=== PATIENT | male | born 1955 | race Caucasian/White ===

== ENCOUNTER 2019-04-02 11:59 | Inpatient (IN) | payer MEDICARE, SELFPAY | END 2019-04-04 00:47 | disposition left against medical advice (07) | DRG 280 | PROVIDERS: Admitting Provider Student in an Organized Health Care Education/Training Program; Visit Provider Student in an Organized Health Care Education/Training Program | DX: I21.4 Non-ST elevation (NSTEMI) myocardial infarction (principal); I50.43 Acute on chronic combined systolic (congestive) and diastolic (congestive) heart failure; N17.9 Acute kidney failure, unspecified; I11.0 Hypertensive heart disease with heart failure; E78.5 Hyperlipidemia, unspecified; G35 Multiple sclerosis; Z53.29 Procedure and treatment not carried out because of patient's decision for other reasons; F17.210 Nicotine dependence, cigarettes, uncomplicated ==

== ENCOUNTER 2019-09-03 12:09 | Outpatient (CLI) | payer MEDICARE, SELFPAY ==
--- NOTE | 2019-09-03 12:35 | XR_ITS ---
WS: [id number] CHEST 2 VIEWS HISTORY: cough COMPARISON: 04/02/2019 Lungs: Hyperexpanded lungs with mild diffuse interstitial edema. No pneumonia. Cardiac size: Moderately enlarged cardiac silhouette. Mediastinum/Aorta: Mild atherosclerosis aorta. Bones: Normal. XR/XR chest 2V* [id number] IMPRESSION: 1. Chronic emphysema with mild CHF. 2. Moderate cardiomegaly.
--- NOTE | 2019-09-03 12:45 | USCV_ITS ---
RadhaArmando hendricks Age: 64 Gender: M : 1955 Exam Date: 09/03/2019 12:21 Ordering Phys: Sully Chaney Technologist: Sarah Griffin Exam Location: [facility] Indication: ISCHEMIC CARDIOMYOPATHY BP: / HR: 54 Rhythm: Sinus Technical Quality: Adequate MEASUREMENTS (Male / Female) Normal Values 2D ECHO LV Diastolic Diameter PLAX 5.8 cm 4.2 - 5.9 / 3.9 - 5.3 cm LV Systolic Diameter PLAX 5.1 cm LV Chamber Size 5.7 cm IVS Diastolic Thickness 1.7 cm 0.6 - 1.0 / 0.6 - 0.9 cm IVS Systolic Thickness 1.7 cm LVPW Diastolic Thickness 2.6 cm 0.6 - 1.0 / 0.6 - 0.9 cm LVPW Systolic Thickness 2.1 cm RV Chamber Size 4.2 cm LVOT Diameter 2.1 cm LV Ejection Fraction 2D Teich 24.3 % LV Ejection Fraction MOD 2C 17.5 % LV Ejection Fraction 2C AL 22.5 % LA Diameter 6.0 cm LA Width 4.7 cm LA Height 5.9 cm RA Width 3.5 cm RA Height 5.1 cm Aorta at Sinotubular Diameter 3.0 cm M-MODE LV Diastolic Diameter MM 6.8 cm 4.2 - 5.9 / 3.9 - 5.3 cm LV Systolic Diameter MM 4.7 cm LV Ejection Fraction MM Teich 57.3 % IVS Diastolic Thickness MM 1.3 cm 0.6 - 1.0 / 0.6 - 0.9 cm IVS Systolic Thickness MM 1.8 cm LVPW Diastolic Thickness MM 1.4 cm 0.6 - 1.0 / 0.6 - 0.9 cm LVPW Systolic Thickness MM 1.8 cm Aortic Annulus Diameter 3.0 cm LA Ao Ratio MM 2.0 MV E Point Septal Separation 1.7 cm DOPPLER AV Peak Velocity 142.0 cm/s LVOT Peak Velocity 125.0 cm/s AV Area Cont Eq vti 3.8 cm squared AV Area Cont Eq pk 3.0 cm squared MV Area PHT 3.1 cm squared Mitral E to A Ratio 2.8 MV E' Velocity 8.0 cm/s Mitral E to MV E' Ratio 13.9 Mitral E to LV E' Lateral Ratio 18.5 Mitral E to LV E' Septal Ratio 11.1 TR Peak Velocity 135.0 cm/s TR Peak Gradient 7.3 mmHg TV Peak E Velocity 43.0 cm/s Right Atrial Pressure 3.0 mmHg Pulmonary Artery Systolic Pressu 10.3 mmHg PV Peak Velocity 78.0 cm/s QpQs Shunt Ratio 1.3 RV Acceleration Time 0.1 s RV Ejection Time 0.4 s RV AcT/ET 0.4 FINDINGS Left Ventricle The ventricle appears mildly enlarged. There are regional wall motion disturbances. There is moderate to severe hypokinesis of the inferior and posterior santo. There is at least moderate hypokinesis of the lateral wall. Ejection fraction is 35 to 40%. Grade 3 diastolic dysfunction. Right Ventricle Normal right ventricular size and systolic function. Normal right ventricular systolic pressure. Right Atrium The right atrium is normal in size. Left Atrium Moderately increased left atrial size. Mitral Valve Structurally normal mitral valve. Moderate mitral valve regurgitation. Aortic Valve Structurally normal aortic valve without significant sclerosis or stenosis. There is no aortic regurgitation. Tricuspid Valve Structurally normal tricuspid valve. Trace tricuspid valve regurgitation. Pulmonic Valve Pulmonic valve not well visualized. Pericardium Normal pericardium without effusion. Aorta Normal ascending aorta dimension. CONCLUSIONS The ventricle appears mildly enlarged. There are regional wall motion disturbances. There is moderate to severe hypokinesis of the inferior and posterior santo. There is at least moderate hypokinesis of the lateral wall. Ejection fraction is 35 to 40%. Grade 3 diastolic dysfunction. Moderately increased left atrial size. Structurally normal mitral valve. Moderate mitral valve regurgitation. There are no prior echocardiogram studies to compare. Dr. Almas Arana MD (Electronically Signed) Final Date: 03 Sep 2019 13:49 S
== END 2019-09-03 12:10 | disposition home or self-care (01) ==
LOC: RAD 12:11
PROVIDERS: Visit Provider Nurse Practitioner Family
DX: R05 Cough (principal); I25.5 Ischemic cardiomyopathy; I51.7 Cardiomegaly; I34.0 Nonrheumatic mitral (valve) insufficiency; J43.9 Emphysema, unspecified
CPT/HCPCS: 71046; 93306

== ENCOUNTER 2019-09-23 15:40 | Inpatient (IN) | payer MEDICARE, SELFPAY ==
[2019-09-23] VITALS (50 sets, daily range): BP systolic 160–216; BP diastolic 81–139; PULSE 48–85; RESP 18–36; TEMP 36.6–36.8; O2SAT 90–99; BMI 38.4
--- NOTE | 2019-09-23 15:59 | W.ED.SOB ---
HPI - SOB/Dyspnea General: Chief Complaint: Shortness of Breath/Dyspnea Stated Complaint: sent by Dr velasquez for admit Time Seen by Provider: 09/23/19 15:54 History of Present Illness: HPI Narrative: Patient presents to the ER with complaint of increasing shortness of breath secondary to congestive heart failure. Patient has either 3 or 4 stents that were placed at least 2 years ago that patient's marketing traffic coordinator believes are clogged. Patient has intermittent chest pain along with the shortness of breath. MD elicited complaint: shortness of breath, pain with inspiration, chest pain and anxiety Pertinent past history: congestive heart failure Onset (ago): day(s) Context: occurred during exertion Timing: constant and progressively worsening Severity: similar to previous episodes Exacerbating factors: lying flat, exertion and talking Relieving factors: nothing Known history of: congestive heart failure Associated symptoms: Reports lightheadedness, nausea and orthopnea Treatment prior to arrival: none Review of Systems Card: Reports: swelling of feet/ankles, lightheadedness, dyspnea on exertion and orthopnea Resp: Reports: dyspnea GI: Reports: nausea PFSH ED PFSH: Medical History CHF (congestive heart failure) History of non-ST elevation myocardial infarction (NSTEMI) HTN (hypertension) Hyperlipidemia Ischemic cardiomyopathy Lacunar infarction Multiple sclerosis Surgical History Hx of heart artery stent stents x 2, 2018- unknown vessels Family History Sister Heart disease Hypertension Myocardial infarction Mother Cancer Daughter Myocardial infarction Social History Smoking and tobacco status: current every day smoker Alcohol intake: never Physical Exam Const: COMMON NORMALS: well nourished GENERAL APPEARANCE: cooperative, well developed, in distress, anxious, disheveled and ill appearing HENMT: COMMON NORMALS: normocephalic and atraumatic HEAD & SCALP: normal to inspection, normocephalic and atraumatic Eye: GENERAL EYE: appearance normal, both eyes and all related structures Neck/C-Spine: COMMON NORMALS: full ROM, no lymphadenopathy and no meningeal signs GENERAL: Yes normal visual inspection CERVICAL SPINE: Yes cervical ROM normal and Yes normal cervical lordosis Chest: COMMONS NORMALS: normal inspection of the chest and normal palpation of entire chest wall Resp: COMMON NORMALS: No retractions and percussion normal EFFORT & INSPECTION: Yes tachypneic, Yes respiratory distress and Yes uses accessory muscles AUSCULTATION: rales PERCUSSION: percussion normal Cardio: COMMON NORMALS: regular rate, regular rhythm, S1 normal heart sound present and S2 normal heart sound present JUGULAR VENOUS DISTENTION: no JVD PALPATION: normal PMI RATE: regular rate RHYTHM: regular rhythm HEART SOUNDS: S1 normal heart sound present and S2 normal heart sound present GI: COMMON NORMALS: Soft to palpation and No hepatosplenomegaly present INSPECTION: Yes normal to inspection PALPATION: Yes Soft to palpation and Yes No hepatosplenomegaly present PERCUSSION: normal to percussion : COMMON NORMALS: Yes no CVA tenderness BLADDER/KIDNEY EXAM: Yes no CVA tenderness Back/Pelvis: COMMON NORMALS: no CVA tenderness, thoracic and lumbar spine normal to inspection and thoraco-lumbar ROM normal Extremity: COMMON NORMALS: normal to inspection, full ROM and capillary refill normal Neuro: MENINGEAL SIGNS: Yes no meningeal signs Skin: COMMON NORMALS: no rashes or lesions noted, no wounds and turgor normal GENERAL SKIN EXAM: no rashes or lesions noted, elasticity normal and turgor normal LESIONS: no lesions RASHES: no rashes TRAUMA: no lacerations or abrasions HAIR: normal NAILS: normal Course Vital Signs: Vital signs: Vital Signs Pulse Rate 70 09/23/19 16:00 Respiratory Rate 22 H 09/23/19 16:00 Blood Pressure 201/109 09/23/19 16:00 Pulse Oximetry 98 09/23/19 16:00 Discharge Plan Discharge Patient Disposition: Admitted As Inpatient Clinical Impression: Ischemic cardiomyopathy, Multiple sclerosis CHF (congestive heart failure) Qualifiers: Heart failure type: unspecified Heart failure chronicity: acute on chronic Qualified Code(s): I50.9 - Heart failure, unspecified HTN (hypertension) Qualifiers: Hypertension type: unspecified Qualified Code(s): I10 - Essential (primary) hypertension Coronary artery disease Qualifiers: Coronary Disease-Associated Artery/Lesion type: [place] artery [place] vs. transplanted heart: [place] heart Associated angina: with unstable angina Qualified Code(s): I25.110 - Atherosclerotic heart disease of [place] coronary artery with unstable angina pectoris Condition: Fair Referrals: Madeleine Garza FNP [Primary Care Provider] - Coding Level of Care Code ED Motor Bus Driver for Chg Fwd Exam Comprehensive
[2019-09-23] MEDS: metoprolol tartrate 1 mg/1 mL SDV 5 mL 5 MG IV (16:13)
[2019-09-23 16:35] LABS: Basophils # 0.1 10^3/uL (0.0-0.1); Basophils % 0.4 %; Eosinophils # 0.2 10^3/uL (0.0-0.8); Eosinophils % 1.9 %; Hematocrit 37.8 % (42.0-52.0); Hemoglobin 11.5 g/dL (11.7-16.6); Lymphocytes # 1.6 10^3/uL (0.8-4.8); Lymphocytes % 13.9 %; Mean Corpuscular HGB Conc 30.4 g/dL (30.0-36.0); Mean Corpuscular Hemoglobin 28.5 pg (28.0-34.0); Mean Corpuscular Volume 93.8 fL (80-94); Mean Platelet Volume 10.2 fL (7.4-10.4); Monocytes # 1.1 10^3/uL (0.2-0.9); Monocytes % 9.1 %; Neutrophils # 8.8 10^3/uL (1.8-7.7); Neutrophils % 74.4 %; Nucleated Red Blood Cells % 0 %; Platelet Count 288 10^3/cmm (130-400); Red Blood Count 4.03 10^6/uL (4.1-5.3); Red Cell Distribution Width 15.8 % (12.1-15.1); White Blood Count 11.8 10^3/uL (4.0-10.0)
--- NOTE | 2019-09-23 16:45 | PC.NURSE ---
Patient to room from ER. Patient placed on 2 L NC, sitting up in bed. Patient appears SOB, O2 saturations are WNL. Physical assessment performed.
--- NOTE | 2019-09-23 16:49 | ECG_ITS ---
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 Measurements Intervals [place] Rate: 67 P: 52 PA: 197 QRS: 68 QRSD: 177 T: -52 QT: 462 QTc: 489 Interpretive Statements SINUS RHYTHM RIGHT BUNDLE BRANCH BLOCK [120+ ms QRS DURATION, UPRIGHT V1, 40+ ms S IN I/aVL/V4/V5/V6] MODERATE T-WAVE ABNORMALITY, CONSIDER LATERAL ISCHEMIA [-0.1+ mV T WAVE IN I/aVL/V5/V6] Compared to ECG 04/02/2019 20:21:07 T-wave abnormality now present Possible ischemia now present Myocardial infarct finding no longer present Electronically Signed On 09-23-2019 19:59:44 CDT by Marylin Valenzuela M.D. [id number]
[2019-09-23 16:55] LABS: Blood Urea Nitrogen 18 mg/dL (8-23); Calcium 9.2 mg/dL (8.5-10.5); Carbon Dioxide 24 mmol/L (22-29); Chloride 103 mmol/L (98-107); Glomerular Filtration Rate 43.6 mL/min (90-130); Glucose 133 mg/dL (65-115); INR 1.01 (0.8-1.2); NT Pro B Type Natriuretic Pept 11378 pg/mL (0-125); Osmolality Calculated 288 mOsm/kg (285-295); Sodium 140 mmol/L (136-145)
[2019-09-23] MEDS: potassium chloride ER 10 mEq Tablet 40 MEQ PO (17:15)
[2019-09-23] MEDS: FUROsemide 10 mg/mL SDV 10mL 80 MG IVP (17:16)
--- NOTE | 2019-09-23 18:10 | P.HP_ITS ---
Providers/Chief Complaint Admitting Physician: Ted Velasquez MD Primary Care Provider: AUGUSTINE Colon Chief Complaint: sent by will velasquez for admit History of Present Illness 64-year-old male past medical history significant for questionable compliance, history of ischemic cardiomyopathy multiple stents few months ago moved from [place] to live near his son in [place] with moderately depressed LV ejection fraction 40% who was admitted in the month of March for non-ST el evation [place] CHF exacerbation and acute on chronic kidney dysfunction. Patient was diuresed and suggested coronary angiogram however he left AMA. His compliance remains questionable. Last he saw me was in April 2019 he was doing fine at that time his medicine was optimized but for the past few weeks patient has been noticing worsening of shortness of breath PND orthopnea and gain weight. He thinks that he cannot hold it anymore at home, he is sleeping in the recliner he is talking to me in short sentences due to shortness of breath. He has 2+ lower extremity edema in the legs. He denies any chest pain but admits to chest pressure. I think he needs to come in and get admitted in the hospital for IV diuresis and possible angiogram for new onset of heart failure and history of recent non-ST elevation [place] with worsening of heart failure. Review of Systems Card: Reports: swelling of feet/ankles, lightheadedness, dyspnea on exertion and orthopnea Resp: Reports: dyspnea GI: Reports: nausea Medications/Allergies Home Medications Medication Instructions Recorded Confirmed Last Taken Type aspirin 81 mg tablet,delayed 81 mg PO DAILY tab 04/27/19 09/23/19 09/22/19 History release furosemide 20 mg tablet 40 mg PO QAM #90 tab 04/27/19 09/23/19 09/22/19 Rx losartan 100 mg tablet 50 mg PO BID tab 04/27/19 09/23/19 09/22/19 History nitroglycerin 0.4 mg sublingual 0.4 mg SUBLINGUAL Q5M PRN #30 tab 04/27/19 09/23/19 09/23/19 Rx tablet isosorbide dinitrate 30 mg tablet 30 mg PO BID #30 tab 05/26/19 09/23/19 Unknown Rx Plavix 75 mg PO DAILY 09/23/19 09/23/19 09/22/19 History potassium chloride 10 meq PO DAILY 09/23/19 09/23/19 09/22/19 History Allergies Allergy/AdvReac Type Severity Reaction Status Date / Time No Known Allergies Allergy Verified 06/17/19 13:52 PFSH Acute PFSH: Medical History (Updated 09/23/19 @ 18:32 by Ted Velasquez MD) CHF (congestive heart failure) Chronic kidney disease History of non-ST elevation myocardial infarction (NSTEMI) HTN (hypertension) Hyperlipidemia Ischemic cardiomyopathy Lacunar infarction Multiple sclerosis Surgical History Hx of heart artery stent stents x 2, 2018- unknown vessels Family History Sister Heart disease Hypertension Myocardial infarction Mother Cancer Daughter Myocardial infarction Social History Smoking and tobacco status: current every day smoker Alcohol intake: never Vitals/I&O/Wt Last Vital Signs Temp 97.8 F 09/23/19 16:30 Pulse 61 09/23/19 16:30 Resp 18 09/23/19 16:30 BP 189/103 09/23/19 17:53 Pulse Ox 99 09/23/19 16:30 09/23/19 09/23/19 09/23/19 06:59 14:59 22:59 Intake Total 120 / 120 Balance 120 / 120 Weight last 48 hrs Weight 260 lb Physical Exam Narrative: EXAM NARRATIVE: GENERAL: Patient is alert, awake and oriented x3 but moderately NECK: No jugular vein distension. HEENT: No cyanosis. No icterus. No pallor. HEART: Regular S1 and S2. No murmur, rub or gallop. LUNGS: Inspiratory crackles bilaterally. ABDOMEN: Soft, nontender and nondistended. Positive bowel sounds. No guarding, rebound or tenderness. CENTRAL NERVOUS SYSTEM: Grossly nonfocal. EXTREMITIES: Lower extremities with 2+ edema bilaterally. Data : 09/23/19 16:12 09/23/19 16:12 A&P Assessment and plan (1) Decompensated heart failure: Patient appeared to be in decompensated systolic heart failure, he has failed outpatient therapy and getting worse. I will admit him to the hospital and diurese him with Lasix IV. Our goal is to diurese him 1 to 1.5 L/day. Once euvolemic we will optimize his medicine. Status: Acute (2) Acute on chronic renal failure: Patient has acute on chronic renal failure most likely also cardiorenal syndrome and secondary to underlying renal disease. Hopefully with IV diuresis it will improve. Status: Acute Qualifiers: Acute renal failure type: with other specified pathological lesion Chronic kidney disease stage: stage 3 (moderate) Qualified Code(s): N17.8 - Other acute kidney failure; N18.3 - Chronic kidney disease, stage 3 (moderate) (3) History of non-ST elevation myocardial infarction (NSTEMI): Patient has history of non-ST elevation [place] in the past patient has refused angiogram and left AMA. We will continue to treat him medically however because of recurrent heart failure and worsening of shortness of breath I believe patient requires angiogram once euvolemic. Until then continue aspirin statin beta-mariel. Status: Acute (4) Ischemic cardiomyopathy: Patient possibly has ischemia burden as he is persistently getting worse symptom mild chest pressure shortness of breath and heart failure. At some point once he is euvolemic he may need to be explored with left heart cath Status: Acute (5) HTN (hypertension): Blood pressure is not optimally controlled. We will optimize medicine Status: Acute Qualifiers: Hypertension type: unspecified Qualified Code(s): I10 - Essential ( primary) hypertension Attestations Medical Necessity Statement*: I am expecting his stay to cross more than 2 midnights for above defined problem Coding Level of Care Code New Pt Acute Mechanic General Operational Test for [facility] Fwd Patient Type New History Detailed Exam Detailed Medical Decision Making Moderate Complexity Diagnoses Decompensated heart failure I50.9 Acute on chronic renal failure N17.8; N18.3 Acute renal failure type: with other specified pathological lesion Chronic kidney disease stage: stage 3 (moderate) History of non-ST elevation myocardial infarction (NSTEMI) I25.2 Ischemic cardiomyopathy I25.5 HTN (hypertension) I10 Hypertension type: unspecified
[2019-09-23] MEDS: carvedilol 6.25 mg Tablet PO (18:26)
[2019-09-23] MEDS: nitroglycerin drip 50 MG/250 ML PREMIX IV (20:45)
[2019-09-23] MEDS: temazepam 15 mg Capsule PO (22:03)
--- NOTE | 2019-09-23 23:59 | PC.NURSE ---
Pt. is frequently restless and moving his arm, some blood pressure readings may be inaccurate. BP cuff has been readjusted several times and current pressure is 165/85 without patient movement. This nurse has reminded patient multiple times to attempt to remain still while blood pressure cuff is pumping up and reading, patient verbalizes understanding. Pt. is beginning to rest better following Restoril administration. Will continue to monitor.
[2019-09-24] VITALS (53 sets, daily range): BP systolic 111–187; BP diastolic 53–110; PULSE 46–98; RESP 18–28; TEMP 36.4–36.8; O2SAT 90–100
--- NOTE | 2019-09-24 01:57 | PC.NURSE ---
Confusion Pt. appears to have some confusion off and on, has some difficulty following directions at times and at one point did not know what town he was in. Pt. stated that he was in [place] and this nurse reminded patient that he is in [place], [place]., patient was easily reoriented and stated that he remembers the hospitals in that area being much larger than this one here. Pt. is able to state that he is at the hospital and that it is Friday. Pt. has stated that he has not slept in 3 days . Pt. was very restless at start of shift and struggling with SOB and being able to lie back in bed. Pt. assisted up to chair at bedside for comfort and given HS Restoril to help with rest. Pt. catheter emptied of 2300mL urine during first half of shift. Urine does have some blood in it but patient has been moving around quite frequently and has accidentally pulled at catheter, this was present at start of shift. Catheter remains draining well without blood clots. Pt. was able to sleep sitting up in chair off and on until approx. 0200 at which time patient was attempting to get up out of chair and had taken all leads off and was attempting to take off blood pressure cuff. Pt. was assisted back into bed and all leads reattached, patient is now resting on his right side comfortably. While assisting patient into bed was when patient was unsure of which town he was in but was able to state that he was in the hospital and that today is Friday. Pt. rails up x3 and bed alarm set for patient safety.
[2019-09-24] MEDS: FUROsemide 10 mg/mL SDV 10mL 80 MG IVP ×2 (04:43→17:09)
[2019-09-24] MEDS: potassium chloride ER 10 mEq Tablet 40 MEQ PO ×2 (04:49→17:08)
[2019-09-24 05:37] LABS: Anion Gap 13.8 (5-19); Blood Urea Nitrogen 18 mg/dL (8-23); Calcium 8.8 mg/dL (8.5-10.5); Carbon Dioxide 27 mmol/L (22-29); Chloride 103 mmol/L (98-107); Glomerular Filtration Rate 38.1 mL/min (90-130); Glucose 116 mg/dL (65-115); Osmolality Calculated 287 mOsm/kg (285-295); Potassium 3.8 mmol/L (3.5-5.1); Sodium 140 mmol/L (136-145)
[2019-09-24] MEDS: isosorbide dinitrate 20 mg Tablet 30 MG PO ×2 (08:48→17:08)
[2019-09-24] MEDS: losartan 50 mg Tablet PO ×2 (08:48→17:09)
[2019-09-24] MEDS: aspirin 81 mg EC Tablet PO (08:49)
[2019-09-24] MEDS: carvedilol 6.25 mg Tablet PO ×2 (08:49→17:08)
[2019-09-24] MEDS: clopidogrel 75 mg Tablet PO (08:49)
[2019-09-24 09:07] LABS: Anion Gap 15.1 (5-19); Blood Urea Nitrogen 17 mg/dL (8-23); Calcium 8.9 mg/dL (8.5-10.5); Carbon Dioxide 28 mmol/L (22-29); Chloride 102 mmol/L (98-107); Glomerular Filtration Rate 40.7 mL/min (90-130); Glucose 122 mg/dL (65-115); Osmolality Calculated 290 mOsm/kg (285-295); Potassium 4.1 mmol/L (3.5-5.1); Sodium 141 mmol/L (136-145)
--- NOTE | 2019-09-24 09:39 | PC.CHAP ---
Pastoral Care Encounter/Spiritual Assessment Type of Contact [] Declined chief wheelage clerk visit [] Patient/Family/Request visit [] Outpatient visit [] Follow-up visit [] Physician referral [] Code/Alert [x] Routine visit [] Staff referral [] Actively dying [] Patient sleeping [] Family support [] [] Out of room [] Palliative care [] [] Receiving care in room [] Pre-surgical visit [] Trauma [] Long length of stay [] ICU visit [] Other: Relational/Emotional Strength [] Patient feels connected with others/family/visitors/staff [] Distress [] Loneliness/isolation [] Abandonment Spirituality of Patient [] Person of [place] [] Attends Church of their [place] [] Believes in Prayer [] Reads Bible or Confucianist materials [] There are Spiritual issues to be addressed Shaper Setter Interventions [x] Prayer [] Active listening [] Non-anxious presence [] Spiritual/emotional support [] Crisis/trauma care [] Spiritual counseling [] Bereavement support [] Provided bereavement packet [] Provided Bible/devotional materials [] Provided toy/stuffed animal, coloring book to patient or family member [] Provided Communion [] Anointing/[place] [] Salvation [x] Completed spiritual assessment [] Other: Impact on Illness or Injury [] Angry [] Fearful [] Anxious [] Often cries [] Exhaustion [] Unable to work [] Unable to attend zoroastrianism [] Unable to walk/stand [] Unable to read [] Unable to drive [] Unable to eat/drink [] Unable to sleep [] Unable to be with family [] Patient intubated [] Other: Summary Patient suffers from MS, and feels he is more than able to get around. Time spent with patient 10 min
[2019-09-24] MEDS: nicotine 2 mg Gum 4 MG BUCCAL (11:49)
--- NOTE | 2019-09-24 14:45 | P.PN_ITS ---
Subjective Subjective: Interval history: Feeling much better and has diuresed really well. Creatinine is stable at 1.7. Blood pressure getting under control. Vitals/I&O/Wt Last Vital Signs Temp 97.8 F 09/24/19 07:20 Pulse 58 L 09/24/19 11:14 Resp 20 H 09/24/19 11:14 BP 116/62 09/24/19 11:14 Pulse Ox 98 09/24/19 11:14 09/23/19 09/24/19 09/24/19 22:59 06:59 14:59 Intake Total 132.425 / 132.425 459.075 / 591.500 510.675 / 510.675 Output Total 2300 / 2300 900 / 3200 2650 / 2650 Balance -2167.575 / -2167.575 -440.925 / -2608.500 -2139.325 / -2139.325 Weight last 48 hrs Weight 260 lb Physical Exam Narrative: EXAM NARRATIVE: GENERAL: Patient is alert, awake and oriented x3 but moderately NECK: No jugular vein distension. HEENT: No cyanosis. No icterus. No pallor. HEART: Regular S1 and S2. No murmur, rub or gallop. LUNGS: Crackles is improved reduced breath sounds bilaterally. ABDOMEN: Soft, nontender and nondistended. Positive bowel sounds. No guarding, rebound or tenderness. CENTRAL NERVOUS SYSTEM: Grossly nonfocal. EXTREMITIES: Lower extremities with 1+ edema bilaterally. Urinary Catheter Management^: Barros: Cath Placed During This Visit: yes Reason for Continuing Indwelling Catheter: Acute Urinary Retention or Obstruction Urinary Catheter Date of Insertion: 09/23/19 Urinary Catheter Time of Insertion: 18:24 Data : 09/23/19 16:12 09/24/19 08:02 A&P Assessment and plan (1) Decompensated heart failure: I will continue IV Lasix. I will continue to diurese him well. Status: Acute (2) Acute on chronic renal failure: Patient has acute on chronic renal failure most likely also cardiorenal syndrome and secondary to underlying renal disease. Hopefully with IV diuresis it will improve. Continue IV diuresis Status: Acute Qualifiers: Acute renal failure type: with other specified pathological lesion Chronic kidney disease stage: stage 3 (moderate) Qualified Code(s): N17.8 - Other acute kidney failure; N18.3 - Chronic kidney disease, stage 3 (moderate) (3) History of non-ST elevation myocardial infarction (NSTEMI): Patient has history of non-ST elevation [place] in the past patient has refused angiogram and left AMA. We will continue to treat him medically however because of recurrent heart failure and worsening of shortness of breath I believe patient requires angiogram once euvolemic. Until then continue aspirin statin beta-mariel. Status: Acute (4) Ischemic cardiomyopathy: Once euvolemic will proceed with left heart cath if renal function improved. Status: Acute (5) HTN (hypertension): Well-controlled now. Continue to optimize medicine Status: Acute Qualifiers: Hypertension type: unspecified Qualified Code(s): I10 - Essential (primary) hypertension Attestations Medical Necessity Statement*: Require continuation hospitalization for above defined care. Coding Level of Care Code Established Pt Acute Associate Professor Computer Science for Kathryn Olmstead Patient Type Established History Detailed Exam Detailed Medical Decision Making Moderate Complexity Diagnoses Decompensated heart failure I50.9 Acute on chronic renal failure N17.8; N18.3 Acute renal failure type: with other specified pathological lesion Chronic kidney disease stage: stage 3 (moderate) History of non-ST elevation myocardial infarction (NSTEMI) I25.2 Ischemic cardiomyopathy I25.5 HTN (hypertension) I10 Hypertension type: unspecified
--- NOTE | 2019-09-24 15:00 | PC.NURSE ---
Addendum entered by Linda Campbell 09/24/19 15:05: BP reassessed before administering the one time order of losartan 50 mg Now. BP currently 111/90. Dr. Martell notified. Physician gave verbal order to non-administer the one time order and give 50 mg at 1800 as scheduled. Original Note: Patient Update Dr. Martell notified patient BP has improved. BP currently 147/[address] off of nitro gtt[address] Martell gave RBVO to administer an additional 50 mg of losartan now. Then, change the patient's daily schedule to 100 mg of losartan in the am and 50 mg of losartan in the pm. Nurse to continue to monitor.
--- NOTE | 2019-09-24 19:55 | PC.NURSE ---
REPORT RECEIVED FROM OFF GOING SHIFT. PT WAS RESTING IN BED. PT DENIED ANY PAIN AT THIS TIME. WILL CONTINUE TO MONITOR.
[2019-09-25] VITALS (9 sets, daily range): BP systolic 106–165; BP diastolic 49–87; PULSE 52–70; RESP 17–26; TEMP 36.4–37; O2SAT 94–98
--- NOTE | 2019-09-25 01:06 | PC.NURSE ---
PT REQUESTED THAT WE LEAVE THEM ALONE AND SKIP [id number] VITALS. WILL CONTINUE TO MONITOR.
[2019-09-25] MEDS: potassium chloride ER 10 mEq Tablet 40 MEQ PO ×2 (06:18→17:03)
[2019-09-25] MEDS: FUROsemide 10 mg/mL SDV 10mL 80 MG IVP ×2 (06:19→17:05)
--- NOTE | 2019-09-25 06:36 | PC.NURSE ---
PT DENIES PAIN AT THIS TIME. PT STATES THAT THEY SLEEP GOOD AND WERE GLAD THAT WE DIDN'T WAKE THEM UP FOR VITALS. WILL DO BEDSIDE REPORT WITH NURSE.
--- NOTE | 2019-09-25 06:50 | PC.NURSE ---
Bedside report with previous nurse. Patient A&O, no needs identified at this time.
[2019-09-25] MEDS: isosorbide dinitrate 20 mg Tablet 30 MG PO ×2 (09:05→17:04)
[2019-09-25] MEDS: losartan 50 mg Tablet 100 MG PO (09:05)
[2019-09-25] MEDS: carvedilol 6.25 mg Tablet PO ×2 (09:05→17:04)
[2019-09-25] MEDS: clopidogrel 75 mg Tablet PO (09:06)
[2019-09-25] MEDS: aspirin 81 mg EC Tablet PO (09:06)
[2019-09-25] MEDS: nicotine 2 mg Gum 4 MG BUCCAL ×2 (09:08→18:19)
--- NOTE | 2019-09-25 11:35 | P.PN_ITS ---
Subjective Subjective: Interval history: He is better this morning. No events on telemetry. Medications: Reviewed: Yes Medication Review Details: Current Medications Acetaminophen (Tylenol) 650 mg PO Q4H PRN PRN Reason: MILD PAIN Al Hydrox/Mg Hydrox/Simethicone (Maalox) 30 ml PO Q4H PRN PRN Reason: INDIGESTION Aspirin (Aspirin Ec) 81 mg PO DAILY [facility] Last Admin: 09/25/19 09:06 Dose: 81 mg Documented by: Carvedilol (Coreg) 6.25 mg PO BID [facility] Last Admin: 09/25/19 09:05 Dose: 6.25 mg Documented by: Clopidogrel Bisulfate (Plavix) 75 mg PO DAILY [facility] Last Admin: 09/25/19 09:06 Dose: 75 mg Documented by: Furosemide (Lasix) 80 mg IVP Q12H [facility] Last Admin: 09/25/19 06:19 Dose: 80 mg Documented by: Nitroglycerin/Dextrose (Nitroglycerin Drip) 50 mg in 250 mls @ 0 mls/hr IV .Q0M [facility]; Protocol Last Titration: 09/24/19 11:26 Dose: 0 mcg/min, 0 mls/hr Documented by: Isosorbide Dinitrate (Isordil) 30 mg PO BID [facility] Last Admin: 09/25/19 09:05 Dose: 30 mg Documented by: Losartan Potassium (Cozaar) 50 mg PO QPM [facility] Last Admin: 09/24/19 17:09 Dose: 50 mg Documented by: Losartan Potassium (Cozaar) 100 mg PO DAILY [facility] Last Admin: 09/25/19 09:05 Dose: 100 mg Documented by: Magnesium Hydroxide (Milk Of Magnesia) 30 ml PO DAILY PRN PRN Reason: CONSTIPATION Nicotine Polacrilex (Nicorette) 4 mg BUCCAL Q2H PRN PRN Reason: NICOTINE WITHDRAWAL Last Admin: 09/25/19 09:08 Dose: 4 mg Documented by: Nitroglycerin (Nitrostat) 0.4 mg SUBLINGUAL Q5M PRN PRN Reason: chest pain Ondansetron HCl (Zofran) 4 mg IVP Q6H PRN PRN Reason: NAUSEA AND VOMITING Potassium Chloride (Klor-Con 10) 40 meq PO Q12H [facility] Last Admin: 09/25/19 06:18 Dose: 40 meq Documented by: Temazepam (Restoril) 15 mg PO BEDTIME PRN PRN Reason: INSOMNIA Last Admin: 09/23/19 22:03 Dose: 15 mg Documented by: Vitals/I&O/Wt Last Vital Signs Temp 97.5 F L 09/25/19 11:05 Pulse 52 L 09/25/19 11:05 Resp 18 09/25/19 11:05 BP 106/49 09/25/19 11:05 Pulse Ox 97 09/25/19 11:05 09/24/19 09/25/19 09/25/19 22:59 06:59 14:59 Intake Total 360 / 870.675 150 / 1020.675 240 / 240 Output Total 1950 / 4600 1900 / 6500 1750 / 1750 Balance -1590 / -3729.325 -1750 / -5479.325 -1510 / -1510 Cumulative I&O 09/23/19 15:40 thru 09/25/19 09:42 Intake Total 1852.175 Output Total 68888 Balance -9597.825 Weight last 48 hrs Weight 260 lb Physical Exam Narrative: EXAM NARRATIVE: GENERAL: Obese man sitting comfortably in bed in no acute distress HEENT: Pupils equal round reactive to light. No pallor or icterus. NECK: Short neck. No JVD appreciated. CARDIOVASCULAR SYSTEM: S1-S2 regular. No S3 or S4 present. No murmur rubs or gallops. RESPIRATORY SYSTEM: Chest clear to auscultation. No wheezes rhonchi or rubs heard. No use of accessory muscles. ABDOMEN: Soft, nontender and nondistended. Normal bowel sounds present. EXTREMITIES: No cyanosis or clubbing. Trace edema. BUILDING DRAFTING OFFICER: Patient is alert oriented ?3. No focal neurological deficits. PSYCH: Normal insight and judgment. Urinary Catheter Management^: Barros: Cath Placed During This Visit: yes Reason for Continuing Indwelling Catheter: Acute Urinary Retention or Obstruction Urinary Catheter Date of Insertion: 09/23/19 Urinary Catheter Time of Insertion: 18:24 Data : 09/23/19 16:12 09/24/19 08:02 A&P Assessment and plan (1) Decompensated heart failure: -continue with IV Lasix. He continues to diurese well. Follow-up on [facility] today. Status: Acute (2) Acute on chronic renal failure: Creatinine 1.3 in March 2019. For the last 2 days creatinine has been stable at 1.7. -Patient has acute on chronic renal failure most likely also cardiorenal syndrome and secondary to underlying renal disease. Hopefully with IV diuresis it will improve. Continue IV diuresis. -Possibly transition to p.o. Lasix a day or 2. Status: Acute Qualifiers: Acute renal failure type: with other specified pathological lesion Chronic kidney disease stage: stage 3 (moderate) Qualified Code(s): N17.8 - Other acute kidney failure; N18.3 - Chronic kidney disease, stage 3 (moderate) (3) History of non-ST elevation myocardial infarction (NSTEMI): Patient has history of non-ST elevation ME in the past patient has refused angiogram and left AMA. We will continue to treat him medically however because of recurrent heart failure and worsening of shortness of breath I believe patient requires angiogram once euvolemic. -Until then continue aspirin statin beta-mariel. Status: Acute (4) Ischemic cardiomyopathy: Once euvolemic will proceed with left heart cath if renal function imp roved. Status: Acute (5) HTN (hypertension): Well-controlled now. Continue to optimize medicine. In case blood pressure runs high, will plan to start on hydralazine. Status: Acute Qualifiers: Hypertension type: unspecified Qualified Code(s): I10 - Essential (primary) hypertension Additional A&P Information Normocytic anemia Attestations Medical Necessity Statement*: Needs hospital stay for management of decompen sated congestive heart failure Coding Level of Care Code Acute Service Car Operator for [facility] Diagnoses Decompensated heart failure I50.9 Acute on chronic renal failure N17.8; N18.3 Acute renal failure type: with other specified pathological lesion Chronic kidney disease stage: stage 3 (moderate) History of non-ST elevation myocardial infarction (NSTEMI) I25.2 Ischemic cardiomyopathy I25.5 HTN (hypertension) I10 Hypertension type: unspecified
[2019-09-25 12:35] LABS: Blood Urea Nitrogen 19 mg/dL (8-23); Calcium 9.4 mg/dL (8.5-10.5); Carbon Dioxide 33 mmol/L (22-29); Chloride 96 mmol/L (98-107); Glomerular Filtration Rate 40.7 mL/min (90-130); Glucose 103 mg/dL (65-115); Magnesium 2.2 mg/dL (1.7-2.3); Osmolality Calculated 287 mOsm/kg (285-295); Sodium 140 mmol/L (136-145)
--- NOTE | 2019-09-25 13:30 | PC.NURSE ---
Patient napping at this time, patient now able to lie flat and speak in complete sentences without becoming short of breath. Patient is maintaining oxygen saturations in the mid to high 90s on RA. Nurse to continue to monitor.
[2019-09-25] MEDS: acetaminophen 325 mg Tablet 650 MG PO (15:20)
--- NOTE | 2019-09-25 19:05 | PC.NURSE ---
Patient expressed to nurse that he has trouble with urinary retention at home. Nurse notified Dr. Martell of patient concerns. Nurse informed physician that patient had voided before the nurse placed catheter 2 days ago and the patient had still returned 400-600 ml of urine once catheter was placed. Physician gave RBVO to start patient on 2 mg Terazosine daily at bedtime. Nurse to continue to monitor.
[2019-09-25] MEDS: hyDRALAzine 10 mg Tablet PO (19:58)
--- NOTE | 2019-09-25 20:18 | PC.NURSE ---
REPORT RECEIVED FROM OFF GOING NURSE. PT TO START ON NEW MEDICATION TERAZOSIN AND HYDRALAZINE. PHARMACY IS OUT OF THE ORDERED DOSE OF TERAZOSIN. DR CLEMONS WAS NOTIFIED. PHARMACY IS LOOKING UP POSSIBLE ALTERNATES. WILL CONTINUE TO FOLLOW UP.
[2019-09-25] MEDS: doxazosin 4 mg Tablet 2 MG PO (21:35)
[2019-09-26] VITALS (7 sets, daily range): BP systolic 118–140; BP diastolic 62–83; PULSE 59–71; RESP 18–20; TEMP 36.4–36.8; O2SAT 95–98
[2019-09-26 04:16] LABS: Anion Gap 17.9 (5-19); Blood Urea Nitrogen 25 mg/dL (8-23); Calcium 8.9 mg/dL (8.5-10.5); Carbon Dioxide 28 mmol/L (22-29); Chloride 96 mmol/L (98-107); Glomerular Filtration Rate 38.1 mL/min (90-130); Glucose 106 mg/dL (65-115); Osmolality Calculated 283 mOsm/kg (285-295); Potassium 3.9 mmol/L (3.5-5.1); Sodium 138 mmol/L (136-145)
[2019-09-26] MEDS: FUROsemide 10 mg/mL SDV 10mL 80 MG IVP (04:41)
[2019-09-26] MEDS: potassium chloride ER 10 mEq Tablet 40 MEQ PO (04:41)
[2019-09-26] MEDS: nicotine 2 mg Gum 4 MG BUCCAL ×2 (05:02→12:45)
--- NOTE | 2019-09-26 05:20 | PC.NURSE ---
PT HAD AN UNEVENTFUL NIGHT. PT STATES THAT THEY RESTED WELL. PT STATES THAT THEY FEEL A LOT BETTER THIS AM. 2.6L OF OUTPUT. BP 128/83 THIS AM. PT DENIES PAIN AT THIS TIME. WILL CONTINUE TO MONITOR.
--- NOTE | 2019-09-26 06:49 | PM.PN ---
Subjective Subjective: Interval history: No acute events overnight. No events on telemetry. He feels well this morning and wants to get coronary angiogram done as soon as possible. He is -12.7 L since admission. His weight today is 250 pounds. Medications: Reviewed: Yes Medication Review Details: Current Medications Acetaminophen (Tylenol) 650 mg PO Q4H PRN PRN Reason: MILD PAIN Last Admin: 09/25/19 15:20 Dose: 650 mg Documented by: Al Hydrox/Mg Hydrox/Simethicone (Maalox) 30 ml PO Q4H PRN PRN Reason: INDIGESTION Aspirin (Aspirin Ec) 81 mg PO DAILY REPLACED BY [facility] Last Admin: 09/26/19 08:58 Dose: 81 mg Documented by: Carvedilol (Coreg) 6.25 mg PO BID REPLACED BY [facility] Last Admin: 09/26/19 09:02 Dose: 6.25 mg Documented by: Clopidogrel Bisulfate (Plavix) 75 mg PO DAILY REPLACED BY [facility] Last Admin: 09/26/19 08:58 Dose: 75 mg Documented by: Doxazosin Mesylate (Cardura) 2 mg PO DAILY REPLACED BY [facility] Last Admin: 09/26/19 08:58 Dose: 2 mg Documented by: Hydralazine HCl (Apresoline) 10 mg PO BID REPLACED BY [facility] Last Admin: 09/26/19 09:01 Dose: 10 mg Documented by: Nitroglycerin/Dextrose (Nitroglycerin Drip) 50 mg in 250 mls @ 0 mls/hr IV .Q0M REPLACED BY [facility]; Protocol Last Titration: 09/24/19 11:26 Dose: 0 mcg/min, 0 mls/hr Documented by: Isosorbide Dinitrate (Isordil) 30 mg PO BID REPLACED BY [facility] Last Admin: 09/26/19 08:56 Dose: 30 mg Documented by: Losartan Potassium (Cozaar) 100 mg PO DAILY REPLACED BY [facility] Last Admin: 09/26/19 08:57 Dose: 100 mg Documented by: Magnesium Hydroxide (Milk Of Magnesia) 30 ml PO DAILY PRN PRN Reason: CONSTIPATION Nicotine Polacrilex (Nicorette) 4 mg BUCCAL Q2H PRN PRN Reason: NICOTINE WITHDRAWAL Last Admin: 09/26/19 05:02 Dose: 4 mg Documented by: Nitroglycerin (Nitrostat) 0.4 mg SUBLINGUAL Q5M PRN PRN Reason: chest pain Ondansetron HCl (Zofran) 4 mg IVP Q6H PRN PRN Reason: NAUSEA AND VOMITING Potassium Chloride (Klor-Con 10) 40 meq PO Q12H EM Last Admin: 09/26/19 04:41 Dose: 40 meq Documented by: Temazepam (Restoril) 15 mg PO BEDTIME PRN PRN Reason: INSOMNIA Last Admin: 09/23/19 22:03 Dose: 15 mg Documented by: Vitals/I&O/Wt Last Vital Signs Temp 98.6 F 09/25/19 19:33 Pulse 66 09/25/19 23:36 Resp 19 H 09/25/19 23:28 BP 128/83 09/26/19 04:40 Pulse Ox 97 09/25/19 23:36 09/25/19 09/25/19 09/26/19 14:59 22:59 06:59 Intake Total 600 / 600 720 / 1320 360 / 1680 Output Total 1750 / 1750 2450 / 4200 1000 / 5200 Balance -1150 / -1150 -1730 / -2880 -640 / -3520 Weight last 48 hrs Weight 250 lb 4.8 oz Physical Exam Narrative: EXAM NARRATIVE: GENERAL: Obese man sitting comfortably in bed in no acute distress HEENT: Pupils equal round reactive to light. No pallor or icterus. NECK: Short neck. No JVD appreciated. CARDIOVASCULAR SYSTEM: S1-S2 regular. No murmur rubs or gallops. RESPIRATORY SYSTEM: Chest clear to auscultation. No wheezes rhonchi or rubs heard. No use of accessory muscles. ABDOMEN: Soft, nontender and obese. Normal bowel sounds present. EXTREMITIES: No cyanosis or clubbing. Trace-1+ R > L foot edema. QUALITY CONSULTANT: Patient is alert oriented ?3. No focal neurological deficits. Urinary Catheter Management^: Barros: Cath Placed During This Visit: yes Reason for Continuing Indwelling Catheter: Acute Urinary Retention or Obstruction Urinary Catheter Date of Insertion: 09/23/19 Urinary Catheter Time of Insertion: 18:24 Data : 09/23/19 16:12 09/26/19 03:31 A&P Assessment and plan (1) Decompensated heart failure: -continue with IV Lasix. He continues to diurese well. Follow-up on [facility] today. Status: Acute (2) Acute on chronic renal failure: Creatinine 1.3 in March 2019. For the last 2 days creatinine has been stable at 1.7--> 1.8 today. BUN 19 to 25 now. -I will hold IV lasix today. Possibly transition to p.o. Lasix tomorrow. -This might be his new baseline, however continue to closely monitor BMP. Status: Acute Qualifiers: Acute renal failure type: with other specified pathological lesion Chronic kidney disease stage: stage 3 (moderate) Qualified Code(s): N17.8 - Other acute kidney failure; N18.3 - Chronic kidney disease, stage 3 (moderate) (3) History of non-ST elevation myocardial infarction (NSTEMI): Patient has history of non-ST elevation MT in the past patient has refused angiogram and left AMA. We will continue to treat him medically however because of recurrent heart failure and worsening of shortness of breath I believe patient requires angiogram once euvolemic. -Until then continue aspirin statin beta-mariel. Status: Acute (4) Ischemic cardiomyopathy: Once euvolemic will proceed with left heart cath if renal function improved. Status: Acute (5) HTN (hypertension): Well-controlled now. Continue to optimize medicine. In case blood pressure runs high, will plan to start on hydralazine. Status: Acute Qualifiers: Hypertension type: unspecified Qualified Code(s): I10 - Essential (primary) hypertension Additional A&P Information Normocytic anemia Attestations Medical Necessity Statement*: Needs hospital stay for CHF and SUSHILA. 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
[2019-09-26] MEDS: isosorbide dinitrate 20 mg Tablet 30 MG PO ×2 (08:56→18:10)
[2019-09-26] MEDS: losartan 50 mg Tablet 100 MG PO (08:57)
[2019-09-26] MEDS: clopidogrel 75 mg Tablet PO (08:58)
[2019-09-26] MEDS: doxazosin 4 mg Tablet 2 MG PO (08:58)
[2019-09-26] MEDS: aspirin 81 mg EC Tablet PO (08:58)
[2019-09-26] MEDS: hyDRALAzine 10 mg Tablet PO ×2 (09:01→18:11)
[2019-09-26] MEDS: carvedilol 6.25 mg Tablet PO ×2 (09:02→18:12)
--- NOTE | 2019-09-26 09:10 | PC.SOCIAL ---
IMM Page 2 of IMM explained to patient. Initialed, dated, and timed and placed in chart. Copy provided to patient.
[2019-09-26] MEDS: acetaminophen 325 mg Tablet 650 MG PO (12:45)
--- NOTE | 2019-09-26 14:14 | PC.NURSE ---
blood pressures all under good control today.diuresing well
[2019-09-26] MEDS: magnesium hydroxide 30 mL UDC PO (16:13)
--- NOTE | 2019-09-26 17:44 | PC.NURSE ---
dr velasquez here to see pt.plan...discharge pt to home tomarrow,then bring back for cardiac angiogram in near future..dr velasquez states that pt was at risk for bleeding upon admission to hospital..and thats why vte was not ordered.he ordered 40 mg of lovenox to be given sq now.
[2019-09-26] MEDS: enoxaparin 40 mg/0.4 mL Syringe SUBCUT (18:11)
--- NOTE | 2019-09-26 19:22 | PC.NURSE ---
REPORT RECEIVED FROM OFF GOING NURSE. PT IS IN A PLEASANT MOOD. PT WAS EAGER TO SHOW PICTURES ON THEIR PHONE. PT DENIES PAIN AT THIS TIME. PT STATES THAT IT HAS BEEN 2 DAYS SINCE THEY HAD A BOWL MOVEMENT. PT STATES THAT THEY GOT MEDICINE TO HELP THEM GO ON DAY SHIFT. WILL CONTINUE TO MONITOR.
--- NOTE | 2019-09-26 22:26 | PC.NURSE ---
PT DOESNT WANT TO BE WOKE UP FOR VITAL SIGNS. WILL CONTINUE TO MONITOR.
[2019-09-27] VITALS (7 sets, daily range): BP systolic 106–166; BP diastolic 66–96; PULSE 56–74; RESP 18–20; TEMP 36.3–36.4; O2SAT 93–98
[2019-09-27 03:20] LABS: Anion Gap 15.3 (5-19); Blood Urea Nitrogen 27 mg/dL (8-23); Calcium 9.1 mg/dL (8.5-10.5); Carbon Dioxide 30 mmol/L (22-29); Chloride 98 mmol/L (98-107); Glomerular Filtration Rate 38.1 mL/min (90-130); Glucose 115 mg/dL (65-115); Osmolality Calculated 286 mOsm/kg (285-295); Potassium 4.3 mmol/L (3.5-5.1); Sodium 139 mmol/L (136-145)
--- NOTE | 2019-09-27 05:27 | PC.NURSE ---
PT HAD AN UNEVENTFUL NIGHT. PT HASN'T HAD A BM TONIGHT. NURSE DISCUSSED PRN SUPPOSITORY AND PT DIDN'T WANT ONE AT THIS TIME. PT STATES THAT AFTER BREAKFAST THEY WILL PROBABLY GO. WILL DISCUSS WITH THE ON COMING NURSE. PT DENIES PAIN AT THIS TIME. WILL CONTINUE TO MONITOR.
[2019-09-27] MEDS: docusate sodium 100 mg Capsule 200 MG PO (08:47)
[2019-09-27] MEDS: isosorbide dinitrate 20 mg Tablet 30 MG PO ×2 (08:47→17:24)
[2019-09-27] MEDS: hyDRALAzine 10 mg Tablet PO ×2 (08:48→17:25)
[2019-09-27] MEDS: aspirin 81 mg EC Tablet PO (08:48)
[2019-09-27] MEDS: losartan 50 mg Tablet 100 MG PO (08:48)
[2019-09-27] MEDS: carvedilol 6.25 mg Tablet PO ×2 (08:48→17:25)
[2019-09-27] MEDS: clopidogrel 75 mg Tablet PO (08:48)
[2019-09-27] MEDS: doxazosin 4 mg Tablet 2 MG PO ×2 (08:52→13:56)
--- NOTE | 2019-09-27 10:40 | PC.RESP ---
Smoking Cessation information and a schedule of classes to patient.
[2019-09-27] MEDS: enoxaparin 40 mg/0.4 mL Syringe SUBCUT (17:24)
--- NOTE | 2019-09-27 17:55 | PC.NURSE ---
PATIENT WAS UNABLE TO VOID POST BORRERO DC. ORDERED TO REINSERT BORRERO CATHETER AND DISCHARGE PATIENT WITH BORRERO. PATIENT EDUCATED ON LEG AND NIGHT BAG. WILL ARRANGE FOLLOW UP APPOINTMENT WITH DR. SANCHEZ FOR URINARY RETENTION. BLADDER SCANNER WAS BROKEN TODAY.
--- NOTE | 2019-09-27 18:05 | PM.DCS ---
Discharge Providers Date of Admission: 09/23/19 16:18 Date of Discharge: September 27, 2019 Attending Provider at Admission: Ted Velasquez MD Attending Provider at Discharge: Ted Velasquez MD Primary Care Provider: AUGUSTINE Colon Diagnoses at Discharge Discharge Diagnosis (1) Decompensated heart failure: Status: Acute (2) Acute on chronic renal failure: Status: Acute Qualifiers: Acute renal failure type: with other specified pathological lesion Chronic kidney disease stage: stage 3 (moderate) Qualified Code(s): N17.8 - Other acute kidney failure; N18.3 - Chronic kidney disease, stage 3 (moderate) (3) History of non-ST elevation myocardial infarction (NSTEMI): Status: Acute (4) Ischemic cardiomyopathy: Status: Acute (5) HTN (hypertension): Status: Acute Qualifiers: Hypertension type: unspecified Qualified Code(s): I10 - Essential (primary) hypertension Reason for Visit Reason for Visit: sent by will velasquez for admit Hospital Course Discharge Summary: 64-year-old male past medical history significant for questionable compliance, history of ischemic cardiomyopathy multiple stents few months ago moved from [place] to live near his son in [place] with moderately depressed LV ejection fraction 40% who was admitted in the month of March for non-ST elevation MT CHF exacerbation and acute on chronic kidney dysfunction. Patient was diuresed and suggested coronary angiogram however he left AMA. His compliance remains questionable. Last he saw me was in April 2019 he was doing fine at that time his medicine was optimized but for the past few weeks patient has been noticing worsening of shortness of breath PND orthopnea and gain weight. Since he failed medical management and presented to my clinic last Friday with very short of breath he was admitted directly to the hospital for optimization of medicine IV diuresis. Over next few days patient has been diuresed with IV Lasix his medicine to optimize blood pressure will improve and got under control. Today he is being discharged home on oral medicine he has also prostate problem for which he has been referred to Dr. Millan. He will be retaining catheter for now since he cannot urinate. He has been started on alpha-mariel as well. Once creatinine improves we will proceed with left heart cath as an outpatient as well. From a cardiovascular perspective he is doing much better he denies any chest pain shortness of breath PND orthopnea his leg swellings has almost become normal. Physical Exam Narrative: EXAM NARRATIVE: GENERAL: Patient is alert, awake and oriented x3 but moderately NECK: No jugular vein distension. HEENT: No cyanosis. No icterus. No pallor. HEART: Regular S1 and S2. No murmur, rub or gallop. LUNGS: Decreased breath sounds bilaterally. ABDOMEN: Soft, nontender and nondistended. Positive bowel sounds. No guarding, rebound or tenderness. CENTRAL NERVOUS SYSTEM: Grossly nonfocal. EXTREMITIES: Lower extremities without edema bilaterally. Urinary Catheter Management^: Barros: Cath Placed During This Visit: yes, but has since been removed by the nurse Reason for Continuing Indwelling Catheter: Acute Urinary Retention or Obstruction Urinary Catheter Date of Insertion: 09/27/19 Urinary Catheter Time of Insertion: 17:59 Date Urinary Catheter Removed: 09/27/19 Time Urinary Catheter Discontinued: 13:30 Discharge Data Data Completed and Pending: Pending at discharge Category Date Time Status Basic Metabolic P toshia AM LABS Lab 09/28/19 04:00 Ordered Labs from last 24 hours 09/27/19 02:58 Sodium 139 Potassium 4.3 Chloride 98 Carbon Dioxide 30 H Anion Gap 15.3 BUN 27 H Creatinine 1.8 H GFR Calculation 38.1 L Glucose 115 Calculated Osmolal ity 286 Calcium 9.1 Vitals: Last Vital Signs Temp 97.3 F L 09/27/19 17:54 Pulse 68 09/27/19 17:54 Resp 18 09/27/19 17:54 BP 145/92 09/27/19 17:54 Pulse Ox 97 09/27/19 17:54 Discharge Plan Discharge Patient Disposition: Home, Self-Care Condition: Fair Prescriptions: New carvedilol 6.25 mg Tablet 6.25 mg PO BID Qty: 60 RF: 4 doxazosin 4 mg Tablet 2 mg PO BIDPC Qty: 60 RF: 4 Continued losartan 100 mg tablet 50 mg PO BID RF: 0 aspirin [Adult Low Dose Aspirin] 81 mg tablet,delayed release (DR/EC) 81 mg PO DAILY RF: 0 nitroglycerin 0.4 mg tablet, sublingual 0.4 mg SUBLINGUAL Q5M PRN (Reason: chest pain) Qty: 30 RF: 4 isosorbide dinitrate 30 mg tablet 30 mg PO BID Qty: 30 RF: 4 Plavix 75 mg tablet 75 mg PO DAILY RF: 0 Changed potassium chloride 10 mEq tablet extended release 20 meq PO DAILY Qty: 90 RF: 4 Lasix 20 mg tablet 40 mg PO BID Qty: 180 RF: 4 Discharge Orders: Discharge Order (Routine); Ordered 09/27/19 Ordered By: Ted Velasquez Referrals: Inocente Millan MD [Physician] - 1-3 days (Dr. Millan's office will contact to schedule an appointment in 1 to 3 days. If you haven't heard from by tomorrow afternoon. Please, call ) Ted Velasquez MD [Physician] - ([facility] will contact you to schedule an follow-up appointment with Dr. Velasquez. If you haven't heard from them by tomorrow afternoon. Please call ) Kylie Vogel [Referring] - 10/04/19 2:00 pm (Please, keep your appointment with Kylie Vogel on October 03 at 2:00p.m. If you have any questions. Please, call ) Discharge Diet: Cardiac and Low Salt Discharge Activity: Resume usual activity Patient Instructions: Doxazosin (By mouth), Carvedilol (By mouth), Heart Failure (DC), Coronary Artery Disease (DC), Hypertension (DC), CHF Stoplight Activity Restrictions/Additional Instructions: Daily weight, if you gain more than 3 pound in 2 consecutive days take extra 40 mg of water pill. Follow-up with Dr. Velasquez in 10 days. You will be scheduled for left heart cath as an outpatient Discharge Attestations Time Spent in Discharge Care*: greater than 30 min Specific Discharge Activities: Specific discharge activities: educating patient and educating and/or supporting family/caregiver Time Spent in Smoking Cessation: Time spent discussing smoking cessation with patient: more than 10 minutes Quality Metrics Clinical Quality Measures During this hospital stay, did patient experience: None Coding Level of Care Code Established Pt Acute Piper Helper for [facility] Patient Type Established History Detailed Exam Detailed Medical Decision Making Moderate Complexity Diagnoses Decompensated heart failure I50.9 Acute on chronic renal failure N17.8; N18.3 Acute renal failure type: with other specified pathological lesion Chronic kidney disease stage: stage 3 (moderate) History of non-ST elevation myocardial infarction (NSTEMI) I25.2 Ischemic cardiomyopathy I25.5 HTN (hypertension) I10 Hypertension type: unspecified
== END 2019-09-27 18:19 | disposition home or self-care (01) | DRG 291 ==
LOC: ER 16:14 → CSU 16:19
PROVIDERS: Family Medicine; Internal Medicine Cardiovascular Disease; Admitting Provider Internal Medicine Cardiovascular Disease; PCP Nurse Practitioner Family; Visit Provider Internal Medicine Cardiovascular Disease
DX: I13.0 Hypertensive heart and chronic kidney disease with heart failure and stage 1 through stage 4 chronic kidney disease, or unspecified chronic kidney disease (principal); I50.21 Acute systolic (congestive) heart failure; N17.9 Acute kidney failure, unspecified; N18.3 Chronic kidney disease, stage 3 (moderate); I25.5 Ischemic cardiomyopathy; I25.2 Old myocardial infarction; Z95.5 Presence of coronary angioplasty implant and graft; Z79.82 Long term (current) use of aspirin; Z79.02 Long term (current) use of antithrombotics/antiplatelets; E78.5 Hyperlipidemia, unspecified; G35 Multiple sclerosis; F17.210 Nicotine dependence, cigarettes, uncomplicated
CPT/HCPCS: 12345; 36415; 51702; 80048; 83735; 83880; 85025; 85610; 93005; 94664; 96372; 96375; 97110; 97161; 97530; 99283; J1650; J1940; J3490

== ENCOUNTER 2020-05-10 12:01 | Inpatient (IN) | payer MEDICARE, SELFPAY ==
[2020-05-10] VITALS (8 sets, daily range): BP systolic 121–160; BP diastolic 68–95; PULSE 73–84; RESP 18–20; TEMP 36.6–37.1; O2SAT 90–98; BMI 38.0
--- NOTE | 2020-05-10 12:06 | XR_ITS ---
WS: [id number] Portable AP upright chest, 05/10/2020 Clinical Data: dyspnea/CHF Comparison: PA and lateral chest, 09/03/2019. Findings: There is increased interstitial edema throughout both lungs. No nodules, masses or effusion s are seen. The heart is greatly enlarged. The aortic arch and descending aorta show calcification an d mild tortuosity. No definite pneumonia is present. XR/XR chest 1V portable [id number] Impression: Cardiomegaly with pulmonary edema.
--- NOTE | 2020-05-10 12:08 | ECG_ITS ---
[facility] Test Date: 2020-05-10 Pat Name: Armando Coleman Department: Room: 275 Gender: Male Skills Auditor: : 1955 Requested By: Oswald Carrillo Order Number: [id number] Johanny MD: Debora Sevilla M.D. Measurements Intervals Okay Rate: 74 P: 68 NE: 208 QRS: 72 QRSD: 193 T: -44 QT: 469 QTc: 521 Interpretive Statements SINUS RHYTHM POSSIBLE LEFT ATRIAL ENLARGEMENT [-0.1mV P WAVE IN V1/V2] RIGHT BUNDLE BRANCH BLOCK [120+ ms QRS DURATION, UPRIGHT V1, 40+ ms S IN I/aVL/V4/V5/V6] INFERIOR MYOCARDIAL INFARCTION , OF INDETERMINATE AGE [40+ ms Q WAVE AND/OR ST/T ABNORMALITY IN II/aVF] Compared to ECG 09/23/2019 17:48:36 Myocardial infarct finding now present T-wave abnormality no longer present Possible ischemia no longer present Electronically Signed On 05-10-2020 20:07:10 SUPERCHARGER MECHANIC by Debora Sevilla M.D. [id number]
--- NOTE | 2020-05-10 12:13 | W.ED.EXTPRO ---
HPI - Extremity Problem General: Chief complaint: Extremity Problem,Nontraumatic Stated complaint: EDEMA Time Seen by Provider: 05/10/20 12:05 History of Present Illness: HPI Narrative: The patient is a 65-year-old male with past medical history CHF and acute urinary retention as well as coronary artery disease comes to the ER complaining of increased swelling to his legs bilaterally. He is unable to take his Lasix as it is prescribed because he is noncompliant with it. Says he took 40 mg the past 2 days. He comes to the ER today complaining of pain in his legs that makes his feet feel numb because they are so swollen. He also admits shortness of breath but he is chronically short of breath and says that it is unchanged. Denies chest pain. MD Complaint: extremity pain Pain Consistency: constant Location: left, right and lower extremity Quality: sharp Relieving factors: nothing Associated symptoms: Deny arthralgias, chest pain, fever(s), myalgias, rash or short of breath Review of Systems General: Reports: 10 or more systems reviewed and unremarkable except in HPI and below Const: Denies: fever(s) Eyes: Denies: change in vision, blurry vision or eye redness ENMT: Denies: throat pain, swelling of lips/tongue, ear or mastoid pain or nasal congestion Card: Reports: edema (Bilateral lower extremity edema); Denies: chest pain Resp: Reports: dyspnea (Chronic); Denies: productive cough or non-productive cough GI: Denies: abdominal pain, diarrhea or GI cramping : Denies: flank pain, urinary frequency or urinary urgency Musc: Denies: neck pain, back pain, extremity pain, joint pain, joint redness, limited range of motion or muscle weakness Skin/Breast: Denies: rash, pruritus, erythema, skin pain or skin tenderness Neuro: Denies: headache(s), numbness in extremities, weakness in extremities, sensory changes, difficulty walking, dizziness, confusion or Slurred speech present Psych: Denies: anxiety or depression Endo: Denies: polyuria All/Imm: Denies: urticaria, throat swelling or tongue swelling PFS ED PFSH: Medical History (Updated 05/10/20 @ 15:16 by Oswald Carrillo MD) CHF (congestive heart failure) Chronic kidney disease History of non-ST elevation myocardial infarction (NSTEMI) HTN (hypertension) Hyperlipidemia Ischemic cardiomyopathy Lacunar infarction Multiple sclerosis Multiple sclerosis Urinary retention Surgical History Hx of heart artery stent stents x 2, 2018- unknown vessels Family History Sister Heart disease Hypertension Myocardial infarction Mother Cancer Daughter Myocardial infarction Social History Smoking and tobacco status: current every day smoker Alcohol intake: never Adopted: No Caregiver/support person: No Lives independently: No Marital status: Single Physical Exam Const: COMMON NORMALS: no acute distress, average body habitus, patient oriented x3, no limitations, healthy appearing, alert and well nourished GENERAL APPEARANCE: cooperative, comfortable, well kempt and well developed ORIENTATION/CONSCIOUSNESS: Yes awake, Yes oriented to person, Yes oriented to place and Yes oriented to time HENMT: COMMON NORMALS: normocephalic, external ears normal and Normal external nose present HEAD & SCALP: normal to inspection and normocephalic NOSE: Normal external nose present EXTERNAL EAR: Yes external ears normal MOUTH: Normal oral and palatal mucosa present THROAT: posterior oropharynx normal Eye: COMMON NORMALS: Equal, round and reactive pupils present and EOMs intact bilaterally GENERAL EYE: appearance normal, both eyes and all related structures PUPIL: Yes Equal, round and reactive pupils present Neck/C-Spine: COMMON NORMALS: full ROM, no lymphadenopathy, no meningeal signs and no JVD GENERAL: Yes normal visual inspection Lymph: LYMPHATIC: no lymphadenopathy noted Chest: COMMONS NORMALS: normal inspection of the chest and normal palpation of entire chest wall Resp: COMMON NORMALS: normal respiratory effort, No retractions, No use of accessory muscles, clear to auscultation bilaterally and percussion normal EFFORT & INSPECTION: Yes able to speak in complete sentences AUSCULTATION: clear to auscultation bilaterally PERCUSSION: percussion normal Cardio: COMMON NORMALS: no JVD, regular rate, regular rhythm, S1 normal heart sound present, S2 normal heart sound present and Peripheral pulses 2+ throughout RATE: regular rate RHYTHM: regular rhythm HEART SOUNDS: S1 normal heart sound present and S2 normal heart sound present PERIPHERAL PULSES: Peripheral pulses 2+ throughout GI: COMMON NORMALS: Normal to inspection, nondistended, normoactive bowel sounds present, Soft to palpation, non-tender and no masses INSPECTION: Yes abdominal distension (Mild likely CHF) PALPATION: Yes Soft to palpation : COMMON NORMALS: Yes no CVA tenderness BLADDER/KIDNEY EXAM: Yes no CVA tenderness Back/Pelvis: COMMON NORMALS: no CVA tenderness, thoracic and lumbar spine normal to inspection, no thoracic nor lumbar tenderness and thoraco-lumbar ROM normal Extremity: COMMON NORMALS: normal to inspection, full ROM, capillary refill normal, no joint enlargement and no pedal edema NARRATIVE EXTREMITY EXAM: Thickened skin to the lower extremities bilaterally which are also edema to his. 2-3+ pitting edema up to his knees. He also has mild swelling to his scrotum and mild abdominal distention. Likely CHF fluid retention changes GENERAL: Yes normal exam except as noted Neuro: COMMON NORMALS: patient oriented x3, CN's II-XII intact bilaterally, moves all extremities, no focal motor deficits, no sensory deficits noted and gait normal SENSORIUM/ORIENTATION: Yes alert, Yes oriented to person, Yes oriented to place and Yes oriented to time MENINGEAL SIGNS: Yes no meningeal signs Psych: COMMON NORMALS: mental status grossly normal, Normal thought process present, cooperative, normal affect and speech normal APPEARANCE: Yes well kempt ATTITUDE: Yes calm SPEECH: Yes normal speech THOUGHT PROCESS: Normal thought process present Skin: COMMON NORMALS: no rashes or lesions noted GENERAL SKIN EXAM: no rashes or lesions noted Course Vital Signs: Vital signs: Vital Signs Temperature 97.9 F 05/10/20 12:02 Pulse Rate 80 05/10/20 14:48 Respiratory Rate 20 H 05/10/20 14:48 Blood Pressure 149/81 05/10/20 14:48 Pulse Oximetry 90 05/10/20 14:48 MDM - Extremity (Nontraumatic) MDM Narrative: Medical decision making narrative: The patient came to the ER complaining of shortness of breath and swelling. He has known CHF. He was given 80 of IV Lasix and had a Barros catheter placed because of his prostate issues. He is stable for admission to the floor. Dr. Rome accepts. He is known to be noncompliant with his Lasix at home. I discussed medication compliance with him in great detail Lab Data: Labs: Lab Results 05/10/20 05/10/20 05/10/20 Range/Units 12:15 12:15 12:15 WBC 10.1 H (4.0-10.0) 10^3/ uL RBC 4.22 (4.1-5.3) 10^6/u L Hgb 11.3 L (11.7-16.6) g/dL Hct 36.6 L (42.0-52.0) % MCV 86.7 (80-94) fL MCH 26.8 L (28.0-34.0) pg MCHC 30.9 (30.0-36.0) g/dL RDW 18.0 H (12.1-15.1) % Plt Count 256 (130-400) 10^3/c mm MPV 9.6 (7.4-10.4) fL Neut % (Auto) 73.2 % Lymph % (Auto) 11.4 % [place] % (Auto) 10.3 % Eos % (Auto) 3.9 % Baso % (Auto) 0.9 % Neut # (Auto) 7.42 (1.8-7.7) 10^3/u L Lymph # (Auto) 1.2 (0.8-4.8) 10^3/u L [place] # (Auto) 1.0 H (0.2-0.9) 10^3/u L Eos # (Auto) 0.4 (0.0-0.8) 10^3/u L Baso # (Auto) 0.1 (0.0-0.1) 10^3/u L Nucleated RBC % (a uto) 0 % Nucleated RBCs # 0.0 /100WBC Sodium 137 (136-145) mmol/L Potassium 3.6 (3.5-5.1) mmol/L Chloride 99 (98-107) mmol/L Carbon Dioxide 30 H (22-29) mmol/L Anion Gap 11.6 (5-19) BUN 17 (8-23) mg/dL Creatinine 1.3 H (0.7-1.2) mg/dL GFR Calculation 55.2 L (90-130) mL/min Glucose 130 H (65-115) mg/dL Calculated Osmolal ity 287 (285-295) mOsm/k g Calcium 9.0 (8.5-10.5) mg/dL Total Bilirubin 0.5 (0.15-1.2) mg/dL AST 9 (0-40) U/L ALT 8 (0-41) U/L Alkaline Phosphata se 138 H (40-130) IU/L Troponin T Baselin e 42 H (0-15) ng/L Troponin T 120 Min chicken ranch (0-15) ng/L Delta Troponin T (0-10) ABS# NT-Pro-B Natriuret Pep 7020 H (0-125) pg/mL Total Protein 7.0 (6.6-8.7) g/dL Albumin 3.3 L (3.5-5.2) g/dL Globulin 3.7 (1.3-4.6) g/dL Urine Color (Yellow) Urine Appearance (CLEAR) Urine pH (5-7) Ur Specific Gravit y (1.005-1.030) Urine Protein (Negative) Urine Glucose (UA) (Normal) Urine Ketones (Negative) Urine Blood (Negative) Urine Nitrate (Negative) Urine Bilirubin (Negative) Urine Urobilinogen (Negative) mg/dL Ur Leukocyte Nila ase (Negative) Urine RBC (0-2) /hpf Urine WBC (0-5) /hpf Ur Squamous Epith Cells (0-5) /hpf Amorphous Sediment Urine Bacteria (NONE) /hpf 05/10/20 05/10/20 Range/Units 14:12 14:29 WBC (4.0-10.0) 10^3/ uL RBC (4.1-5.3) 10^6/u L Hgb (11.7-16.6) g/dL Hct (42.0-52.0) % MCV (80-94) fL MCH (28.0-34.0) pg MCHC (30.0-36.0) g/dL RDW (12.1-15.1) % Plt Count (130-400) 10^3/c mm MPV (7.4-10.4) fL Neut % (Auto) % Lymph % (Auto) % [place] % (Auto) % Eos % (Auto) % Baso % (Auto) % Neut # (Auto) (1.8-7.7) 10^3/u L Lymph # (Auto) (0.8-4.8) 10^3/u L [place] # (Auto) (0.2-0.9) 10^3/u L Eos # (Auto) (0.0-0.8) 10^3/u L Baso # (Auto) (0.0-0.1) 10^3/u L Nucleated RBC % (a uto) % Nucleated RBCs # /100WBC Sodium (136-145) mmol/L Potassium (3.5-5.1) mmol/L Chloride (98-107) mmol/L Carbon Dioxide (22-29) mmol/L Anion Gap (5-19) BUN (8-23) mg/dL Creatinine (0.7-1.2) mg/dL GFR Calculation (90-130) mL/min Glucose (65-115) mg/dL Calculated Osmolal ity (285-295) mOsm/k g Calcium (8.5-10.5) mg/dL Total Bilirubin (0.15-1.2) mg/dL AST (0-40) U/L ALT (0-41) U/L Alkaline Phosphata se (40-130) IU/L Troponin T Baselin e (0-15) ng/L Troponin T 120 Min chicken ranch 42.07 H (0-15) ng/L Delta Troponin T 0.07 (0-10) ABS# NT-Pro-B Natriuret Pep (0-125) pg/mL Total Protein (6.6-8.7) g/dL Albumin (3.5-5.2) g/dL Globulin (1.3-4.6) g/dL Urine Color Yellow (Yellow) Urine Appearance Hazy A (CLEAR) Urine pH 7 (5-7) Ur Specific Gravit y 1.010 (1.005-1.030) Urine Protein 1+ H (Negative) Urine Glucose (UA) Norm (Normal) Urine Ketones Negative (Negative) Urine Blood 2+ H (Negative) Urine Nitrate Negative (Negative) Urine Bilirubin Neg (Negative) Urine Urobilinogen 1 H (Negative) mg/dL Ur Leukocyte Nila ase 1+ H (Negative) Urine RBC 5-10 H (0-2) /hpf Urine WBC >100 H (0-5) /hpf Ur Squamous Epith Cells 0-4 H (0-5) /hpf Amorphous Sediment Not Reportable Urine Bacteria 4+ H (NONE) /hpf Discharge Plan Discharge Patient Disposition: Admitted As Inpatient Clinical Impression: CHF (congestive heart failure), Urinary retention Clinical Impression: (Ruled Out): Gout Condition: Stable Coding Level of Care Code ED Cotton Baler for Chg Fwd Exam Comprehensive
[2020-05-10 12:23] LABS: Basophils # 0.1 10^3/uL (0.0-0.1); Basophils % 0.9 %; Eosinophils # 0.4 10^3/uL (0.0-0.8); Eosinophils % 3.9 %; Hematocrit 36.6 % (42.0-52.0); Hemoglobin 11.3 g/dL (11.7-16.6); Lymphocytes # 1.2 10^3/uL (0.8-4.8); Lymphocytes % 11.4 %; Mean Corpuscular HGB Conc 30.9 g/dL (30.0-36.0); Mean Corpuscular Hemoglobin 26.8 pg (28.0-34.0); Mean Corpuscular Volume 86.7 fL (80-94); Mean Platelet Volume 9.6 fL (7.4-10.4); Monocytes % 10.3 %; Neutrophils # 7.42 10^3/uL (1.8-7.7); Neutrophils % 73.2 %; Nucleated Red Blood Cells % 0 %; Platelet Count 256 10^3/cmm (130-400); Red Blood Count 4.22 10^6/uL (4.1-5.3); White Blood Count 10.1 10^3/uL (4.0-10.0)
[2020-05-10 12:52] LABS: Troponin(5th) Baseline 42 ng/L (0-15)
[2020-05-10 13:00] LABS: Alanine Aminotransferase 8 U/L (0-41); Albumin Level 3.3 g/dL (3.5-5.2); Alkaline Phosphatase 138 IU/L (40-130); Anion Gap 11.6 (5-19); Aspartate Amino Transferase 9 U/L (0-40); Blood Urea Nitrogen 17 mg/dL (8-23); Carbon Dioxide 30 mmol/L (22-29); Chloride 99 mmol/L (98-107); Globulin 3.7 g/dL (1.3-4.6); Glomerular Filtration Rate 55.2 mL/min (90-130); Glucose 130 mg/dL (65-115); NT Pro B Type Natriuretic Pept 7020 pg/mL (0-125); Osmolality Calculated 287 mOsm/kg (285-295); Potassium 3.6 mmol/L (3.5-5.1); Sodium 137 mmol/L (136-145); Total Bilirubin 0.5 mg/dL (0.15-1.2)
[2020-05-10] MEDS: morphine 4 mg/mL SDV 1 mL 2 MG IVP (13:56)
[2020-05-10] MEDS: FUROsemide 10 mg/mL SDV 4mL 40 MG IVP (13:58)
--- NOTE | 2020-05-10 14:08 | ECG_ITS ---
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 Measurements Intervals [place] Rate: 79 P: 55 IL: 218 QRS: 79 QRSD: 188 T: -45 QT: 449 QTc: 516 Interpretive Statements SINUS RHYTHM WITH FIRST DEGREE AV BLOCK POSSIBLE LEFT ATRIAL ENLARGEMENT [-0.1mV P WAVE IN V1/V2] RIGHT BUNDLE BRANCH BLOCK [120+ ms QRS DURATION, UPRIGHT V1, 40+ ms S IN I/aVL/V4/V5/V6] MODERATE T-WAVE ABNORMALITY, CONSIDER INFERIOR ISCHEMIA [-0.1+ mV T WAVE IN II/aVF] Compared to ECG 09/23/2019 17:48:36 First degree AV block now present T-wave abnormality still present Possible ischemia still present Electronically Signed On 05-10-2020 20:19:32 CHIEF TECHNOLOGY OFFICER by Debora Sevilla M.D. [id number]
--- NOTE | 2020-05-10 14:18 | PC.NURSE ---
EKG done at 1415 and shown to Er doctor
[2020-05-10 14:41] LABS: Troponin 5 2HR 42.07 ng/L (0-15); Troponin 5 2HR Delta 0.07 ABS# (0-10)
[2020-05-10 15:00] LABS: Add Urine Microscopic? YES; Bilirubin Urine Neg (Negative); Blood Urine 2+ (Negative); Glucose Urine UA Norm (Normal); Ketones Urine Negative (Negative); Leukocyte Esterase Urine 1+ (Negative); Nitrate Urine Negative (Negative); Protein Urine 1+ (Negative); Urine Appearance Hazy (CLEAR); Urine Color Yellow (Yellow); Urobilinogen Urine 1 mg/dL (Negative); pH Urine 7 (5-7)
[2020-05-10 15:01] LABS: Add Urine Culture? Yes; Bacteria Urine 4+ /hpf; Squamous Epithelial Cell Urine 0-4 /hpf (0-5); WBC Urine >100 /hpf (0-5)
--- NOTE | 2020-05-10 18:06 | P.HP_ITS ---
Providers/Chief Complaint Admitting Physician: David Rome Primary Care Provider: Kylie Vogel Chief Complaint: EDEMA History of Present Illness Pleasant 65-year-old gentleman with history of MS, neurogenic bladder for which he self catheterizes, recurrent edema for which he takes Lasix, although he is not aware of history of congestive heart failure, with history of CAD and stenting, presented to ER due to worsening lower extremity edema over at least the last week or so. He states that he previously was taking Lasix 40 mg daily, and sometimes if edema is worsening would double up to 80 mg. He states that despite doing this edema continue to worsen. He notes that increasing Lasix dose was made difficult for him, having trouble keeping up with straight catheterizations. He denies any episodes of chest pain or pressure. He does report waking up short of breath at night. Denies history of sleep apnea. Denies chronic lung conditions. He is a current smoker, but says he has been cutting down, and smokes a pack about every other day. He denies any fever or chills. Has had no cough. Has been bringing up little bit of phlegm which is chronic for him. Has had no headache, nausea vomiting or diarrhea. Review of Systems Const: Denies: fever(s), chills, body aches or malaise Eyes: Denies: change in vision or eye redness ENMT: Denies: throat pain, oral sores or ear or mastoid pain Card: Reports: edema, dyspnea on exertion and other (PND); Denies: chest pain or pre-syncope Resp: Reports: dyspnea; Denies: productive cough, change in phlegm color or hemoptysis GI: Denies: abdominal pain, nausea, vomiting, diarrhea, constipation, hematochezia or melena : Denies: flank pain, difficulty urinating, urinary frequency or hematuria Musc: Denies: back pain, joint swelling or joint redness Skin/Breast: Denies: rash, sores or new lesions Neuro: Denies: headache(s), numbness in extremities, weakness in extremities, dizziness, confusion or seizure-like activity Endo: Denies: polyuria or polydipsia [place]/Lymph: Denies: easy bleeding or purpura All/Imm: Denies: urticaria, throat swelling or tongue swelling Medications/Allergies Home Medications Medication Instructions Recorded Confirmed Last Taken Type losartan 100 mg tablet 50 mg PO BID tab 04/27/19 05/10/20 09/22/19 History nitroglycerin 0.4 mg sublingual 0.4 mg SUBLINGUAL Q5M PRN #30 tab 04/27/19 05/10/20 09/23/19 Rx tablet isosorbide dinitrate 30 mg tablet 30 mg PO BID #30 tab 05/26/19 05/10/20 Unknown Rx clopidogrel [Plavix] 75 mg PO DAILY 09/23/19 05/10/20 09/22/19 History doxazosin 2 mg PO BIDPC #60 tab 09/27/19 05/10/20 Unknown Rx furosemide [Lasix] 40 mg PO BID #180 tab 09/27/19 05/10/20 09/22/19 Rx potassium chloride 20 meq PO DAILY #90 tab 09/27/19 05/10/20 09/22/19 Rx carvedilol 6.25 mg tablet 6.25 mg PO BID #60 tab 04/14/20 05/10/20 Unknown Rx aspirin 325 mg PO DAILY 05/10/20 05/10/20 Unknown History Allergies Allergy/AdvReac Type Severity Reaction Status Date / Time No Known Allergies Allergy Verified 05/10/20 12:08 PFSH Acute PFSH: Medical History (Updated 05/10/20 @ 18:24 by David Rome MD) CHF (congestive heart failure) Chronic kidney disease History of non-ST elevation myocardial infarction (NSTEMI) HTN (hypertension) Hyperlipidemia Ischemic cardiomyopathy Lacunar infarction Multiple sclerosis Multiple sclerosis Urinary retention Surgical History Hx of heart artery stent stents x 2017- unknown vessels Family History Sister Heart disease Hypertension Myocardial infarction Mother Cancer Daughter Myocardial infarction Social History Smoking and tobacco status: current every day smoker cigarettes Packs smoked per day: 0.5 [ Other cigarette details: Cutting down ] Alcohol intake: never Adopted: No Caregiver/support person: No Lives independently: No Marital status: Single Vitals/I&O/Wt Last Vital Signs Temp 98.4 F 05/10/20 16:28 Pulse 82 05/10/20 16:28 Resp 20 H 05/10/20 16:28 BP 121/68 05/10/20 16:28 Pulse Ox 92 05/10/20 16:28 05/10/20 05/10/20 05/10/20 06:59 14:59 22:59 Output Total 1000 / 1000 Balance -1000 / -1000 Weight last 48 hrs Weight 113.398 kg Physical Exam Const: COMMON NORMALS: no acute distress, patient oriented x3 and alert GENERAL APPEARANCE: cooperative NUTRITIONAL APPEARANCE: obese ORIENTATION/CONSCIOUSNESS: Yes awake HENMT: COMMON NORMALS: oropharynx normal Neck/C-Spine: COMMON NORMALS: no JVD Resp: COMMON NORMALS: normal respiratory effort and clear to auscultation bilaterally AUSCULTATION: clear to auscultation bilaterally Cardio: COMMON NORMALS: no JVD, regular rhythm, S1 normal heart sound present, S2 normal heart sound present and No murmurs present (Cardio) RHYTHM: regular rhythm HEART SOUNDS: S1 normal heart sound present and S2 normal heart sound present GI: COMMON NORMALS: Normal to inspection, nondistended, normoactive bowel sounds present, Soft to palpation and non-tender PALPATION: Yes Soft to palpation Extremity: COMMON NORMALS: no joint enlargement OTHER: Anasarca up to lower abdomen. Scrotal swelling. Neuro: COMMON NORMALS: patient oriented x3 and moves all extremities Skin: COMMON NORMALS: no rashes or lesions noted GENERAL SKIN EXAM: no rashes or lesions noted Urinary Catheter Management^: Barros: Cath Placed During This Visit: yes Reason for Continuing Indwelling Catheter: Acute Urinary Retention or Obst ruction Urinary Catheter Date of Insertion: 05/10/20 Urinary Catheter Time of Insertion: 14:34 Data : 05/10/20 12:15 05/10/20 12:15 A&P Assessment and plan (1) CHF (congestive heart failure): Acute combined systolic and diastolic congestive heart failure ex acerbation. Received 80 mg Lasix in ER. Will continue 3 mg twice daily. States he was taking 80 mg oral by doubling 40 mg which she usually does when swelling worsens, however, says did not have additional response. Has quite extensive edema, anasarca. Highly likely also has got edema with poor Lasix absorption. Discussed with him. Troponin is markedly elevated, however, has not been having chest pain, has not been having very significantly more shortness of breath. Will complete troponin EKG series. Assess limited echo. Status: Acute (2) Troponin level elevated: Baseline troponin 42. Denies chest pain or bpressure. Complete troponin KG series. Assess limited TTE. Continue aspirin, Plavix. Due to severity of CHF for now we reduce beta-mariel dose. Will need to confirm why he is not on statin. Status: Acute Additional A&P Information CAD: Follows with Dr. Martell. As above. MS with neurogenic bladder: Was receiving treatments with neurology over at [facility]. Follows with Dr. Millan regarding neurogenic bladder. Performs self straight catheterization at home. HTN: As he required extensive diuresis for now we will hold losartan. Monitor blood pressures. Chronic kidney disease Attestations Medical Necessity Statement*: Admission of lower to mid this is continued for assessment of management of acute CHF exacerbation, anasarca. Coding Level of Care Code Acute Hemodialysis Technician for [facility] Diagnoses CHF (congestive heart failure) I50.9 Troponin level elevated R77.8
[2020-05-10] MEDS: ciprofloxacin 500 mg Tablet PO (18:45)
[2020-05-10] MEDS: heparin 5,000 unit/mL INJ 1 mL 5000 UNIT SUBCUT (18:45)
[2020-05-10 19:29] LABS: Troponin 5 6HR 41.49 ng/L (0-15)
[2020-05-10 19:41] LABS: Troponin 5 6HR Delta -0.51 ng/L (0-12)
[2020-05-10] MEDS: FUROsemide 10 mg/mL SDV 10mL 80 MG IVP (21:16)
[2020-05-11] MEDS: heparin 5,000 unit/mL INJ 1 mL 5000 UNIT SUBCUT ×3 (02:10→17:36)
[2020-05-11 04:00] VITALS: BP 145/110; PULSE 86; RESP 19; TEMP 37; O2SAT 90
[2020-05-11 05:57] VITALS: BMI 38.0
[2020-05-11 06:50] LABS: Basophils # 0.1 10^3/uL (0.0-0.1); Basophils % 0.8 %; Eosinophils # 0.3 10^3/uL (0.0-0.8); Eosinophils % 2.2 %; Hemoglobin 11.1 g/dL (11.7-16.6); Lymphocytes # 1.2 10^3/uL (0.8-4.8); Lymphocytes % 10.8 %; Mean Corpuscular Hemoglobin 26.1 pg (28.0-34.0); Mean Corpuscular Volume 86.9 fL (80-94); Mean Platelet Volume 10.3 fL (7.4-10.4); Monocytes # 1.2 10^3/uL (0.2-0.9); Monocytes % 10.4 %; Neutrophils # 8.53 10^3/uL (1.8-7.7); Neutrophils % 75.4 %; Nucleated Red Blood Cells % 0 %; Platelet Count 277 10^3/cmm (130-400); Red Blood Count 4.26 10^6/uL (4.1-5.3); Red Cell Distribution Width 18.1 % (12.1-15.1); White Blood Count 11.3 10^3/uL (4.0-10.0)
--- NOTE | 2020-05-11 07:00 | USCV_ITS ---
RadhaArmando hendricks Age: 65 Gender: M : 1955 Exam Date: 05/11/2020 06:27 Ordering Phys: David Rome MD Technologist: Federico Espinoza [place] [facility] [place]: [place]F BP: 145 / 110 HR: 84 Rhythm: Sinus Technical Quality: Poor MEASUREMENTS (Male / Female) Normal Values 2D ECHO LV Diastolic Diameter PLAX 6.3 cm 4.2 - 5.9 / 3.9 - 5.3 cm LV Systolic Diameter PLAX 4.8 cm IVS Diastolic Thickness 1.4 cm 0.6 - 1.0 / 0.6 - 0.9 cm IVS Systolic Thickness 2.0 cm LVPW Diastolic Thickness 1.5 cm 0.6 - 1.0 / 0.6 - 0.9 cm LVPW Systolic Thickness 1.9 cm LVOT Diameter 2.0 cm LV Ejection Fraction 2D Teich 46.1 % LA Diameter 5.0 cm M-MODE LV Diastolic Diameter MM 5.6 cm 4.2 - 5.9 / 3.9 - 5.3 cm LV Systolic Diameter MM 4.9 cm LV Ejection Fraction MM Teich 26.4 % IVS Diastolic Thickness MM 1.9 cm 0.6 - 1.0 / 0.6 - 0.9 cm IVS Systolic Thickness MM 1.6 cm LVPW Diastolic Thickness MM 1.5 cm 0.6 - 1.0 / 0.6 - 0.9 cm LVPW Systolic Thickness MM 2.2 cm RV Diastolic Diameter MM 2.8 cm Aortic Annulus Diameter 3.8 cm LA Ao Ratio MM 1.3 MV E Point Septal Separation 1.6 cm DOPPLER AV Peak Velocity 145.0 cm/s LVOT Peak Velocity 114.0 cm/s AV Area Cont Eq vti 3.0 cm squared AV Area Cont Eq pk 2.6 cm squared MV Area PHT 5.0 cm squared Mitral E to A Ratio 2.1 MV E' Velocity 73.5 cm/s Mitral E to MV E' Ratio 26.3 Mitral E to LV E' Lateral Ratio 30.9 Mitral E to LV E' Septal Ratio 23.3 TR Peak Velocity 276.7 cm/s TR Peak Gradient 30.6 mmHg TV Peak E Velocity 111.0 cm/s Right Atrial Pressure 3.0 mmHg Pulmonary Artery Systolic Pressu 33.6 mmHg PV Peak Velocity 97.0 cm/s FINDINGS Left Ventricle Left ventricle is moderately enlarged. LV systolic function is moderately reduced with EF of 35 to 40%. Moderate global hypokinesis is seen. There is severe hypokinesis of anterolateral and anterior santo. Grade 3 diastolic dysfunction Right Ventricle The right ventricle is normal in size. RV function is mildly reduced. Right Atrium The right atrium is normal in size. Left Atrium The left atrium is enlarged. Mitral Valve Structurally normal mitral valve without significant stenosis or prolapse. There is mild to moderate mitral regurgitation. Aortic Valve Structurally normal aortic valve without significant sclerosis or stenosis. There is mild aortic regurgitation. Tricuspid Valve Structurally normal tricuspid valve without significant stenosis or regurgitation. Insufficient TR jet to calculate RVSP. Pulmonic Valve Not well-visualized. Pericardium Normal pericardium without effusion. Aorta Normal ascending aorta dimension. CONCLUSIONS Left ventricle is moderately enlarged. LV systolic function is moderately reduced with EF of 35 to 40%. Moderate global hypokinesis is seen. There is severe hypokinesis of anterolateral and anterior santo. Grade 3 diastolic dysfunction is seen. RV function is mildly reduced. Left atrial enlargement Moderate mitral regurgitation is seen. There is mild aortic regurgitation. Compared to prior echocardiogram from 09/03/2019, no significant changes are seen. Parish Lea MD (Electronically Signed) Final Date: 11 May 2020 18:15 S
[2020-05-11 07:07] LABS: Alanine Aminotransferase 8 U/L (0-41); Albumin Level 3.3 g/dL (3.5-5.2); Alkaline Phosphatase 137 IU/L (40-130); Anion Gap 12.8 (5-19); Aspartate Amino Transferase 11 U/L (0-40); Blood Urea Nitrogen 19 mg/dL (8-23); Calcium 8.9 mg/dL (8.5-10.5); Carbon Dioxide 30 mmol/L (22-29); Chloride 98 mmol/L (98-107); Globulin 4.3 g/dL (1.3-4.6); Glomerular Filtration Rate 50.7 mL/min (90-130); Glucose 108 mg/dL (65-115); Osmolality Calculated 287 mOsm/kg (285-295); Potassium 3.8 mmol/L (3.5-5.1); Sodium 137 mmol/L (136-145); Total Bilirubin 0.6 mg/dL (0.15-1.2); Total Protein 7.6 g/dL (6.6-8.7)
--- NOTE | 2020-05-11 07:20 | PC.NURSE ---
Asked pt if he would like a shower or to get cleaned up pt. refused pt. stated he will wait till he gets home. pt is currently bedrest wished not to get up for breakfast.
[2020-05-11 07:21] VITALS: BP 167/99; PULSE 78; RESP 19; TEMP 36.8; O2SAT 97
[2020-05-11] MEDS: FUROsemide 10 mg/mL SDV 10mL 80 MG IVP ×2 (09:11→21:32)
[2020-05-11] MEDS: aspirin 325 mg Tablet PO (09:21)
[2020-05-11] MEDS: ciprofloxacin 500 mg Tablet PO ×2 (09:21→21:32)
[2020-05-11] MEDS: carvedilol 3.125 mg Tablet PO ×2 (09:21→17:36)
[2020-05-11] MEDS: clopidogrel 75 mg Tablet PO (09:21)
[2020-05-11] MEDS: isosorbide dinitrate 20 mg Tablet 30 MG PO ×2 (09:22→17:36)
--- NOTE | 2020-05-11 11:14 | PC.CHAP ---
Pastoral Care Encounter/Spiritual Assessment Type of Contact [] Declined tank charger visit [] Patient/Family/Request visit [] Outpatient visit [] Follow-up visit [] Physician referral [] Code/Alert [] Routine visit [] Staff referral [] Actively dying [] Patient sleeping [] Family support [] [] Out of room [] Palliative care [] [] Receiving care in room [] Pre-surgical visit [] Trauma [] Long length of stay [] ICU visit [x] Other: Restriction in room / blood work Relational/Emotional Strength [] Patient feels connected with others/family/visitors/staff [] Distress [] Loneliness/isolation [] Abandonment Spirituality of Patient [] Person of Shavonne [] Attends Tenriism of their Shavonne [] Believes in Prayer [] Reads Bible or Taoism materials [] There are Spiritual issues to be addressed Straight Edger Interventions [] Prayer [] Active listening [] Non-anxious presence [] Spiritual/emotional support [] Crisis/trauma care [] Spiritual counseling [] Bereavement support [] Provided bereavement packet [] Provided Bible/devotional materials [] Provided toy/stuffed animal, coloring book to patient or family member [] Provided Communion [] Anointing/[place] [] Salvation [] Completed spiritual assessment [] Other: Impact on Illness or Injury [] Angry [] Fearful [] Anxious [] Often cries [] Exhaustion [] Unable to work [] Unable to attend church [] Unable to walk/stand [] Unable to read [] Unable to drive [] Unable to eat/drink [] Unable to sleep [] Unable to be with family [] Patient intubated [] Other: Summary Restriction in room / blood work Time spent with patient 5 mins
[2020-05-11 11:20] VITALS: BP 142/83; PULSE 72; RESP 18; TEMP 36.6; O2SAT 93
[2020-05-11 15:17] VITALS: BP 142/80; PULSE 85; RESP 16; TEMP 36.4; O2SAT 91
[2020-05-11 20:00] VITALS: BP 159/93; PULSE 75; PULSE 85; RESP 13; TEMP 36.8; O2SAT 96
--- NOTE | 2020-05-11 20:47 | P.PN_ITS ---
Subjective Subjective: Interval history: Today he reports he is noticing improvement. The size of his legs is decreasing. He even tried to get up to walk a little bit, although overall says he does not walk very well, and has not walked in months due to MS, and recently progressive edema. Vitals/I&O/Wt Last Vital Signs Temp 98.2 F 05/11/20 20:00 Pulse 75 05/11/20 20:00 Resp 13 05/11/20 20:00 BP 159/93 05/11/20 20:00 Pulse Ox 96 05/11/20 20:00 05/11/20 05/11/20 05/11/20 06:59 14:59 22:59 Intake Total 500 / 500 300 / 300 120 / 420 Output Total 650 / 1650 1800 / 1800 Balance -150 / -1150 300 / 300 -1680 / -1380 Weight last 48 hrs Weight 113.398 kg Weight 113.398 kg Physical Exam 2 Const: COMMON NORMALS: no acute distress, patient oriented x3 and alert GENERAL APPEARANCE: cooperative NUTRITIONAL APPEARANCE: obese ORIENTATION/CONSCIOUSNESS: Yes awake OTHER: Life partner at bedside. HENMT: COMMON NORMALS: oropharynx normal Neck/C-Spine: COMMON NORMALS: no JVD Resp: COMMON NORMALS: normal respiratory effort and clear to auscultation bilaterally AUSCULTATION: clear to auscultation bilaterally Cardio: COMMON NORMALS: no JVD, regular rhythm, S1 normal heart sound present, S2 normal heart sound present and No murmurs present (Cardio) RHYTHM: regular rhythm HEART SOUNDS: S1 normal heart sound present and S2 normal heart sound present GI: COMMON NORMALS: Normal to inspection, nondistended, normoactive bowel sounds present, Soft to palpation and non-tender PALPATION: Yes Soft to palpation Extremity: COMMON NORMALS: no joint enlargement OTHER: Anasarca up to lower abdomen. Scrotal swelling. Neuro: COMMON NORMALS: patient oriented x3 and moves all extremities SENSORIUM/ORIENTATION: Yes alert Skin: COMMON NORMALS: no rashes or lesions noted GENERAL SKIN EXAM: no rashes or lesions noted Urinary Catheter Management^: Barros: Cath Placed During This Visit: yes Reason for Continuing Indwelling Catheter: Acute Urinary Retention or Obstruction Urinary Catheter Date of Insertion: 05/10/20 Urinary Catheter Time of Insertion: 14:34 Data : 05/11/20 05:28 05/11/20 05:28 Micro: Microbiology 05/10/20 14:29 Urine Culture - Preliminary Urine,Clean Catch Gram Negative Rods A&P Assessment and plan (1) CHF (congestive heart failure): He has been diuresing well. Reports he is noticing some decrease in edema. Has quite significant anasarca. Discussed with him would benefit from at least several days of IV diuretic therapy, subsequently may then do okay with switching to oral diuretics. As he had quite significant difficulties with mobility as well with edema, and underlying MS, but today actually felt better after some diuresis and tried getting up, will request PT evaluation. Acute combined systolic and diastolic congestive heart failure exacerbation. Troponin is moderately elevated, however, has not been having chest pain, has not been having very significantly more shortness of breath. Noted ejection fraction 35-40%. Grade 3 diastolic dysfunction. Moderate mitral valve regurgitation. Status: Acute (2) Troponin level elevated: Moderately elevated troponins, without peak, he has had no chest pain. So far has not had any suggestion of acute ACS. EF appears to be close to ba seline. Continue aspirin, Plavix. Due to severity of CHF for now we reduced beta-mariel dose. Will need to confirm why he is not on statin. Status: Acute Additional A&P Information CAD: Follows with Dr. Martell. As above. MS with neurogenic bladder: Was receiving treatments with neurology over at [facility]. Follows with Dr. Millan regarding neurogenic bladder. Performs self straight catheterization at home. HTN: As he required extensive diuresis for now we will hold losartan. Monitor blood pressures. Chronic kidney disease Attestations Medical Necessity Statement*: Continue admission for treatment of acute CHF, anasarca. 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
[2020-05-12] VITALS: BP 149/80; PULSE 81; RESP 14; TEMP 36.6; O2SAT 92
[2020-05-12] MEDS: heparin 5,000 unit/mL INJ 1 mL 5000 UNIT SUBCUT ×3 (03:17→18:13)
[2020-05-12 04:00] VITALS: BP 170/92; PULSE 79; RESP 15; TEMP 36.9; O2SAT 95
[2020-05-12] MEDS: acetaminophen 325 mg Tablet 650 MG PO ×2 (04:35→21:12)
[2020-05-12 05:23] VITALS: BMI 38.0
[2020-05-12 06:09] LABS: Basophils # 0.1 10^3/uL (0.0-0.1); Eosinophils # 0.4 10^3/uL (0.0-0.8); Eosinophils % 3.8 %; Hematocrit 37.1 % (42.0-52.0); Hemoglobin 11.3 g/dL (11.7-16.6); Lymphocytes % 9.2 %; Mean Corpuscular HGB Conc 30.5 g/dL (30.0-36.0); Mean Corpuscular Hemoglobin 26.7 pg (28.0-34.0); Mean Corpuscular Volume 87.7 fL (80-94); Mean Platelet Volume 10.6 fL (7.4-10.4); Monocytes # 1.2 10^3/uL (0.2-0.9); Monocytes % 11.6 %; Nucleated Red Blood Cells % 0 %; Platelet Count 272 10^3/cmm (130-400); Red Blood Count 4.23 10^6/uL (4.1-5.3); White Blood Count 10.7 10^3/uL (4.0-10.0)
[2020-05-12 06:34] LABS: Alanine Aminotransferase 7 U/L (0-41); Albumin Level 3.5 g/dL (3.5-5.2); Alkaline Phosphatase 136 IU/L (40-130); Anion Gap 13.1 (5-19); Aspartate Amino Transferase 11 U/L (0-40); Blood Urea Nitrogen 22 mg/dL (8-23); Carbon Dioxide 32 mmol/L (22-29); Chloride 93 mmol/L (98-107); Globulin 4.4 g/dL (1.3-4.6); Glomerular Filtration Rate 43.5 mL/min (90-130); Glucose 119 mg/dL (65-115); Osmolality Calculated 284 mOsm/kg (285-295); Potassium 3.1 mmol/L (3.5-5.1); Sodium 135 mmol/L (136-145); Total Bilirubin 0.6 mg/dL (0.15-1.2); Total Protein 7.9 g/dL (6.6-8.7)
[2020-05-12 07:15] VITALS: BP 168/85; PULSE 79; RESP 18; TEMP 36.3; O2SAT 95
[2020-05-12] MEDS: nicotine 2 mg Gum BUCCAL (09:04)
[2020-05-12] MEDS: isosorbide dinitrate 20 mg Tablet 30 MG PO ×2 (09:04→18:14)
[2020-05-12] MEDS: clopidogrel 75 mg Tablet PO (09:05)
[2020-05-12] MEDS: ciprofloxacin 500 mg Tablet PO ×2 (09:05→21:09)
[2020-05-12] MEDS: carvedilol 3.125 mg Tablet PO ×2 (09:05→18:13)
[2020-05-12] MEDS: FUROsemide 10 mg/mL SDV 10mL 80 MG IVP ×2 (09:05→21:09)
[2020-05-12] MEDS: aspirin 325 mg Tablet PO (09:05)
[2020-05-12] MEDS: potassium chloride ER 20 mEq Tablet 40 MEQ PO (10:15)
[2020-05-12 11:00] VITALS: BP 158/89; PULSE 76; RESP 18; TEMP 36.2; O2SAT 97
--- NOTE | 2020-05-12 14:11 | PC.RESP ---
Smoking Cessation information sent to patient.
[2020-05-12 16:00] VITALS: BP 170/95; PULSE 88; RESP 16; TEMP 36.3; O2SAT 94
[2020-05-12 20:00] VITALS: BP 165/78; PULSE 76; PULSE 80; RESP 24; TEMP 36.7; O2SAT 93
--- NOTE | 2020-05-12 22:14 | PM.PN ---
Subjective Subjective: Interval history: He reports he is very happy with how his condition is progressing. His leg size is decreasing, swelling is coming down. On urging of his nurse he got up and admitted to the door of the room and back to his chair. He denies chest pain or pressure. He is breathing well. Vitals/I&O/Wt Last Vital Signs Temp 98.1 F 05/12/20 20:00 Pulse 76 05/12/20 20:00 Resp 24 H 05/12/20 20:00 BP 165/78 05/12/20 20:00 Pulse Ox 93 05/12/20 20:00 05/12/20 05/12/20 05/12/20 06:59 14:59 22:59 Intake Total 600 / 600 360 / 960 Output Total 3000 / 5600 800 / 800 Balance -3000 / -5180 -200 / -200 360 / 160 Weight last 48 hrs Weight 113.398 kg Weight 113.398 kg Physical Exam Const: COMMON NORMALS: no acute distress, patient oriented x3 and alert GENERAL APPEARANCE: cooperative NUTRITIONAL APPEARANCE: obese ORIENTATION/CONSCIOUSNESS: Yes awake OTHER: Sitting up in chair. In good spirits. HENMT: COMMON NORMALS: oropharynx normal Neck/C-Spine: COMMON NORMALS: no JVD Resp: COMMON NORMALS: normal respiratory effort and clear to auscultation bilaterally AUSCULTATION: clear to auscultation bilaterally Cardio: COMMON NORMALS: no JVD, regular rhythm, S1 normal heart sound present, S2 normal heart sound present and No murmurs present (Cardio) RHYTHM: regular rhythm HEART SOUNDS: S1 normal heart sound present and S2 normal heart sound present GI: COMMON NORMALS: Normal to inspection, nondistended, normoactive bowel sounds present, Soft to palpation and non-tender PALPATION: Yes Soft to palpation Extremity: COMMON NORMALS: no joint enlargement GENERAL: Yes edema (3-4+) OTHER: Severe anasarca of both lower extremities, up to the abdomen, however, improving with diuresis. Now some dry skin is appearing on lower extremities even despite moisturizing. Scrotal swelling. Neuro: COMMON NORMALS: patient oriented x3 and moves all extremities SENSORIUM/ORIENTATION: Yes alert Skin: COMMON NORMALS: no rashes or lesions noted GENERAL SKIN EXAM: no rashes or lesions noted Urinary Catheter Management^: Barros: Cath Placed During This Visit: yes Reason for Continuing Indwelling Catheter: Acute Urinary Retention or Obstruction Urinary Catheter Date of Insertion: 05/10/20 Urinary Catheter Time of Insertion: 14:34 Data : 05/12/20 05:07 05/12/20 05:07 Micro: Microbiology 05/10/20 14:29 Urine Culture - Final Urine,Clean Catch Enterobacter cloacae A&P Assessment and plan (1) CHF (congestive heart failure): Quite severe anasarca which appears to be showing gradual improvement. Discussed with him that with degree of edema he will not adequately absorb Lasix to allow yet for good enough diuresis with oral diuretics. He does state that his abdomen's size has been shrinking. In negative balance. Discussed with him would like to continue IV diuresis for another at least 1-2 days. He is agreeable. Continue to reassess. Continue to mobilize with fall precautions. PT. Acute combined systolic and diastolic congestive heart failure exacerbation. Troponin is moderately elevated, however, has not been having chest pain. Noted ejection fraction 35-40%. Grade 3 diastolic dysfunction. Moderate mitral valve regurgitation. Status: Acute (2) Troponin level elevated: Moderately elevated troponins, without peak, he has had no chest pain. So far has not had any suggestion of acute ACS. EF appears to be close to baseline. Continue aspirin, Plavix. Due to severity of CHF for now we reduced beta-mariel dose. Will need to confirm why he is not on statin. If can tolerate, would initiate on discharge. Status: Acute (3) UTI (urinary tract infection): Her back to her UTI. Sensitive to Cipro. Status: Acute Additional A&P Information CAD: Follows with Dr. Martell. As above. MS with neurogenic bladder: Was receiving treatments with neurology over at [facility]. Follows with Dr. Millan regarding neurogenic bladder. Performs self straight catheterization at home. HTN: As he required extensive diuresis for now we will hold losartan. Monitor blood pressures. Chronic kidney disease Attestations Medical Necessity Statement*: Continue admission for assessment management of acute on chronic systolic and diastolic congestive heart failure, with severe anasarca which is limiting his already limited mobility, increasing fall risk, UTI with neurogenic bladder, MS. Other underlying comorbidities. Coding Level of Care Code Acute Color Consultant for Kathryn Olmstead Diagnoses CHF (congestive heart failure) I50.9 Troponin level elevated R77.8 UTI (urinary tract infection) N39.0
[2020-05-13] VITALS: BP 128/74; PULSE 77; RESP 20; TEMP 36.8; O2SAT 93
[2020-05-13] MEDS: heparin 5,000 unit/mL INJ 1 mL 5000 UNIT SUBCUT ×3 (02:21→18:12)
[2020-05-13 04:00] VITALS: BP 170/85; PULSE 74; RESP 20; TEMP 36.4; O2SAT 97
[2020-05-13 05:31] LABS: Basophils # 0.1 10^3/uL (0.0-0.1); Basophils % 0.9 %; Eosinophils # 0.4 10^3/uL (0.0-0.8); Eosinophils % 4.3 %; Hematocrit 36.2 % (42.0-52.0); Hemoglobin 11.2 g/dL (11.7-16.6); Lymphocytes % 9.4 %; Mean Corpuscular HGB Conc 30.9 g/dL (30.0-36.0); Mean Corpuscular Hemoglobin 26.5 pg (28.0-34.0); Mean Corpuscular Volume 85.6 fL (80-94); Neutrophils # 7.76 10^3/uL (1.8-7.7); Nucleated Red Blood Cells % 0 %; Platelet Count 278 10^3/cmm (130-400); Red Blood Count 4.23 10^6/uL (4.1-5.3); Red Cell Distribution Width 17.8 % (12.1-15.1); White Blood Count 10.3 10^3/uL (4.0-10.0)
[2020-05-13 05:55] LABS: Alanine Aminotransferase 8 U/L (0-41); Albumin Level 3.5 g/dL (3.5-5.2); Alkaline Phosphatase 138 IU/L (40-130); Anion Gap 15.3 (5-19); Aspartate Amino Transferase 12 U/L (0-40); Blood Urea Nitrogen 24 mg/dL (8-23); Calcium 8.9 mg/dL (8.5-10.5); Carbon Dioxide 30 mmol/L (22-29); Chloride 95 mmol/L (98-107); Globulin 4.4 g/dL (1.3-4.6); Glomerular Filtration Rate 43.5 mL/min (90-130); Glucose 122 mg/dL (65-115); Osmolality Calculated 289 mOsm/kg (285-295); Potassium 3.3 mmol/L (3.5-5.1); Sodium 137 mmol/L (136-145); Total Bilirubin 0.5 mg/dL (0.15-1.2); Total Protein 7.9 g/dL (6.6-8.7)
--- NOTE | 2020-05-13 06:48 | PC.NURSE ---
End of shift report Patient slept in bed until midnight but then wanted to get up to the chair and has been there since then. Patient has had an uneventful night. Patient is A&Ox3.
--- NOTE | 2020-05-13 07:09 | PC.NURSE ---
Report to Jojo FOUNTAIN at this time.
[2020-05-13 07:23] VITALS: BP 174/91; PULSE 69; RESP 17; TEMP 36.3; O2SAT 96
[2020-05-13] MEDS: FUROsemide 10 mg/mL SDV 10mL 80 MG IVP ×2 (08:15→22:39)
[2020-05-13] MEDS: aspirin 325 mg Tablet PO (08:49)
[2020-05-13] MEDS: clopidogrel 75 mg Tablet PO (08:49)
[2020-05-13] MEDS: carvedilol 3.125 mg Tablet PO ×2 (08:49→18:12)
[2020-05-13] MEDS: isosorbide dinitrate 20 mg Tablet 30 MG PO ×2 (08:50→18:12)
[2020-05-13] MEDS: ciprofloxacin 500 mg Tablet PO (08:52)
--- NOTE | 2020-05-13 10:40 | P.PN_ITS ---
Subjective Subjective: Interval history: He states he is doing well. He continues to improve. Diuresing well. Sides of his abdomen and legs continues to gradually decrease. Vitals/I&O/Wt Last Vital Signs Temp 97.4 F L 05/13/20 07:23 Pulse 69 05/13/20 07:23 Resp 17 05/13/20 07:23 BP 174/91 05/13/20 07:23 Pulse Ox 96 05/13/20 07:23 05/12/20 05/13/20 05/13/20 22:59 06:59 14:59 Intake Total 360 / 960 120 / 1080 240 / 240 Output Total 1000 / 1800 2200 / 2200 Balance -640 / -840 120 / -720 -1960 / -1960 Weight last 48 hrs Weight 113.398 kg Physical Exam Const: COMMON NORMALS: no acute distress, patient oriented x3 and alert GENERAL APPEARANCE: cooperative NUTRITIONAL APPEARANCE: obese ORIEN TATION/CONSCIOUSNESS: Yes awake OTHER: Sitting up in chair. In good spirits. HENMT: COMMON NORMALS: oropharynx normal Neck/C-Spine: COMMON NORMALS: no JVD Resp: COMMON NORMALS: normal respiratory effort and clear to auscultation bilaterally AUSCULTATION: clear to auscultation bilaterally Cardio: COMMON NORMALS: no JVD, regular rhythm, S1 normal heart sound present, S2 normal heart sound present and No murmurs present (Cardio) RHYTHM: regular rhythm HEART SOUNDS: S1 normal heart sound present and S2 normal heart sound present GI: COMMON NORMALS: Normal to inspection, nondistended, normoactive bowel sounds present, Soft to palpation and non-tender PALPATION: Yes Soft to palpation Extremity: COMMON NORMALS: no joint enlargement GENERAL: Yes edema (3-4+) OTHER: Decreasing anasarca of both lower extremities, up to the abdomen. Now some dry skin is appearing on lower extremities even despite moisturizing. Scrotal swelling improving. Neuro: COMMON NORMALS: patient oriented x3 and moves all extremities SENSORIUM/ORIENTATION: Yes alert Skin: COMMON NORMALS: no rashes or lesions noted GENERAL SKIN EXAM: no rashes or lesions noted Urinary Catheter Management^: Barros: Cath Placed During This Visit: yes Reason for Continuing Indwelling Catheter: Accurate Measurement of Urinary Out put in Critically Ill Patients Urinary Catheter Date of Insertion: 05/10/20 Urinary Catheter Time of Insertion: 14:34 Data : 05/13/20 04:20 05/13/20 04:20 Micro: Microbiology 05/10/20 14:29 Urine Culture - Final Urine,Clean Catch Enterobacter cloacae A&P Assessment and plan (1) CHF (congestive heart failure): Anasarca gradually decreasing. He is in negative balance. Started get more wrinkling on the lower extremities. Will request moisturize to be applied twice daily to prevent cracking. He is progressively feeling better. Size of his abdomen is also decreasing, and perhaps in a day or so may be able to effectively transition to oral diuretics and return home. Continue to mobilize with fall precautions. PT. Acute combined systolic and diastolic congestive heart failure exacerbation. Troponin is moderately elevated, however, has not been having chest pain. Noted ejection fraction 35-40%. Grade 3 diastolic dysfunction. Moderate mitral valve regurgitation. Status: Acute (2) Troponin level elevated: He denies any chest pain. Moderately elevated troponins, without peak, he has had no chest pain. So far has not had any suggestion of acute ACS. EF appears to be close to baseline. Continue aspirin, Plavix. Due to severity of CHF for now we reduced beta-mariel dose. Will need to confirm why he is not on statin. If can tolerate, would initiate on discharge. Status: Acute (3) UTI (urinary tract infection): Her back to her UTI. Sensitive to Cipro. Status: Acute Additional A&P Information CAD: Follows with Dr. Martell. As above. MS with neurogenic bladder: Was receiving treatments with neurology over at [facility]. Follows with Dr. Millan regarding neurogenic bladder. Performs self straight catheterization at home. HTN: As he required extensive diuresis for now we will hold losartan. Monitor blood pressures. Chronic kidney disease Attestations Medical Necessity Statement*: Continue admission for assessment of management of acute exacerbation of CHF, anasarca requiring IV diuresis. Coding Level of Care Code Acute Oncology Physician for Kathryn Olmstead Diagnoses CHF (congestive heart failure) I50.9 Troponin level elevated R77.8 UTI (urinary tract infection) N39.0
[2020-05-13 11:16] VITALS: BP 154/85; PULSE 69; RESP 18; TEMP 36.4; O2SAT 97
--- NOTE | 2020-05-13 12:31 | DCPLANNER ---
Pg 2 of IM updated and reviewed with pt. No questions, he comments that he was ready to go 30 minutes after he got he as he'd rather be home. Copy provided.
[2020-05-13 15:19] VITALS: BP 157/78; PULSE 84; RESP 18; TEMP 36.7; O2SAT 94
[2020-05-13 20:00] VITALS: BP 136/72; PULSE 70; PULSE 94; RESP 20; TEMP 36.6; O2SAT 96
[2020-05-14] VITALS (7 sets, daily range): BP systolic 104–164; BP diastolic 76–89; PULSE 63–83; RESP 17–22; TEMP 36.2–36.7; O2SAT 91–96
[2020-05-14] MEDS: acetaminophen 325 mg Tablet 650 MG PO (03:14)
[2020-05-14] MEDS: trazodone 50 mg Tablet 25 MG PO (03:15)
[2020-05-14] MEDS: heparin 5,000 unit/mL INJ 1 mL 5000 UNIT SUBCUT ×2 (03:15→09:35)
[2020-05-14 04:39] LABS: Alanine Aminotransferase 9 U/L (0-41); Albumin Level 3.6 g/dL (3.5-5.2); Alkaline Phosphatase 141 IU/L (40-130); Anion Gap 15.3 (5-19); Aspartate Amino Transferase 11 U/L (0-40); Blood Urea Nitrogen 23 mg/dL (8-23); Calcium 9.1 mg/dL (8.5-10.5); Carbon Dioxide 30 mmol/L (22-29); Chloride 95 mmol/L (98-107); Globulin 4.6 g/dL (1.3-4.6); Glomerular Filtration Rate 46.8 mL/min (90-130); Glucose 122 mg/dL (65-115); Osmolality Calculated 289 mOsm/kg (285-295); Potassium 3.3 mmol/L (3.5-5.1); Sodium 137 mmol/L (136-145); Total Bilirubin 0.5 mg/dL (0.15-1.2); Total Protein 8.2 g/dL (6.6-8.7)
[2020-05-14] MEDS: clopidogrel 75 mg Tablet PO (08:00)
[2020-05-14] MEDS: ciprofloxacin 500 mg Tablet PO (08:00)
[2020-05-14] MEDS: isosorbide dinitrate 20 mg Tablet 30 MG PO (08:00)
[2020-05-14] MEDS: carvedilol 3.125 mg Tablet PO (08:00)
[2020-05-14] MEDS: aspirin 325 mg Tablet PO (08:00)
[2020-05-14] MEDS: potassium chloride ER 20 mEq Tablet 40 MEQ PO (08:26)
[2020-05-14] MEDS: FUROsemide 10 mg/mL SDV 10mL 80 MG IVP (08:26)
[2020-05-14 08:48] LABS: Magnesium 2.2 mg/dL (1.7-2.3)
--- NOTE | 2020-05-14 11:26 | P.DS_ITS ---
Discharge Providers Date of Admission: 05/10/20 15:05 Date of Discharge: May 14, 2020 Attending Provider at Admission: David Rome Attending Provider at Discharge: David Rome Primary Care Provider: Kylie Vogel Diagnoses at Discharge Discharge Diagnosis (1) CHF (congestive heart failure): Status: Acute (2) Troponin level elevated: Status: Acute (3) UTI (urinary tract infection): Status: Acute Reason for Visit Reason for Visit: EDEMA Hospital Course Hospital Course Very pleasant 65-year-old gentleman with history of MS, with limited mobility, which appears has been possibly contributing to his fluid retention, with underlying CHF, EF noted 35-40%, grade 3 diastolic dysfunction on echocardiogram in August 2019,, with history of CAD, also history of neurogenic bladder requiring self-catheterization's presented due to worsening edema, despite increasing Lasix dose, he states also has had trouble keeping up with self catheterizations at home. On evaluation noted to have anasarca with severe swelling of lower extremities, scrotum, as well as abdomen. As discussed with him it is likely he was not absorbing Lasix well due to gut edema. Lack of ability may have contributed, however, edema itself make mobility even more difficult. On presentation chest x-ray showed cardiomegaly with pulmonary edema. He was afebrile, leukocytosis 10.1, highest 11.3. NT proBNP noted 7000. Noted chronic kidney disease, with creatinine 1.3 under usual baseline. UA suggestive of UTI with Enterobacter cloacae, treated with Cipro. He has had no chest pain on presentation or during the hospitalization. Troponin noted moderately elevated [id number]. Discussed with him. However, without suggestion of acute PR currently and has responded very well to diuresis. Due to history of coronary disease we will continue aspirin, Plavix, beta-mariel. Will add statin as well. We are asking him to follow-up with cardiology and reassessment TTE. He is started on statin. He reports that he is feeling much better today and requests to go home. He denies any chest pain or pressure. Has not had any trouble breathing. We will assess home oxygen need on discharge, although he has done very well on room air. Was provided with home exercise program. He is encouraged to continue to mobilize, and was provided with home exercise program. Physical Exam Const: COMMON NORMALS: no acute distress, patient oriented x3 and alert GENERAL APPEARANCE: cooperative NUTRITIONAL APPEARANCE: obese ORIENTATION/CONSCIOUSNESS: Yes awake OTHER: Sitting up in chair. In good spirits. HENMT: COMMON NORMALS: oropharynx normal Neck/C-Spine: COMMON NORMALS: no JVD Resp: COMMON NORMALS: normal respiratory effort and clear to auscultation bilaterally AUSCULTATION: clear to auscultation bilaterally Cardio: COMMON NORMALS: no JVD, regular rhythm, S1 normal heart sound present, S2 normal heart sound present and No murmurs present (Cardio) RHYTHM: regular rhythm HEART SOUNDS: S1 normal heart sound present and S2 normal heart sound present GI: COMMON NORMALS: Normal to inspection, nondistended, normoactive bowel sounds present, Soft to palpation and non-tender PALPATION: Yes Soft to palpation Extremity: COMMON NORMALS: no joint enlargement GENERAL: Yes edema (2++) OTHER: Decreasing anasarca of both lower extremities, up to the abdomen. Neuro: COMMON NORMALS: patient oriented x3 and moves all extremities SENSORIUM/ORIENTATION: Yes alert Skin: COMMON NORMALS: no rashes or lesions noted GENERAL SKIN EXAM: no rashes or lesions noted Urinary Catheter Management^: Barros: Cath Placed During This Visit: yes Reason for Continuing Indwelling Catheter: Acute Urinary Retention or Obstru ction Urinary Catheter Date of Insertion: 05/10/20 Urinary Catheter Time of Insertion: 14:34 Discharge Data Data Completed and Pending: Completed Studies During Hospitalization Category Date Time Status XR chest 1V rainer ble [id number] Urgent Exams 05/10/20 12:06 Completed CV echo limited 9 [id number] Routine Ultrasound 05/11/20 07:00 Completed Pending at discharge Category Date Time Status Comprehensive Met abolic Panel AM LA BS Lab 05/15/20 04:00 Ordered Comprehensive Met abolic Panel AM LA BS Lab 05/16/20 04:00 Ordered Labs from last 24 hours 05/14/20 05/14/20 03:54 03:54 Sodium 137 Potassium 3.3 L Chloride 95 L Carbon Dioxide 30 H Anion Gap 15.3 BUN 23 Creatinine 1.5 H GFR Calculation 46.8 L Glucose 122 H Calculated Osmolal ity 289 Calcium 9.1 Magnesium 2.2 Total Bilirubin 0.5 AST 11 ALT 9 Alkaline Phosphata se 141 H Total Protein 8.2 Albumin 3.6 Globulin 4.6 Vitals: Last Vital Signs Temp 97.2 F L 05/14/20 11:19 Pulse 63 05/14/20 11:19 Resp 18 05/14/20 11:19 BP 104/77 05/14/20 11:19 Pulse Ox 94 05/14/20 11:23 Discharge Plan Discharge Patient Disposition: Home Condition: Stable Prescriptions: New nicotine (polacrilex) 2 mg Gum 2 mg buccal Q2H PRN (Reason: nicotine) Qty: 90 RF: 0 aspirin 81 mg tablet,delayed release (DR/EC) 81 mg PO DAILY Qty: 30 RF: 0 atorvastatin 40 mg tablet 40 mg PO DAILY Qty: 30 RF: 0 ciprofloxacin HCl 500 mg Tablet 500 mg PO BID@0900,2100 Qty: 3 RF: 0 Continued losartan 100 mg tablet 50 mg PO BID RF: 0 nitroglycerin 0.4 mg tablet, sublingual 0.4 mg SUBLINGUAL Q5M PRN (Reason: chest pain) Qty: 30 RF: 4 isosorbide dinitrate 30 mg tablet 30 mg PO BID Qty: 30 RF: 4 carvedilol 6.25 mg tablet 6.25 mg PO BID Qty: 60 RF: 3 clopidogrel [Plavix] 75 mg tablet 75 mg PO DAILY RF: 0 doxazosin 4 mg Tablet 2 mg PO BIDPC Qty: 60 RF: 4 potassium chloride 10 mEq tablet extended release 20 meq PO DAILY Qty: 90 RF: 4 Changed Lasix 20 mg tablet See Rx Instructions .ROUTE .COMPLEX Qty: 70 RF: 4 Discontinued aspirin 325 mg Tablet 325 mg PO DAILY RF: 0 Discharge Orders: Discharge Order (Routine); Ordered 05/14/20 Ordered By: David Rome Other Ambulatory Orders: CV echo limited [id number] (Routine) Timeframe: 3 Days Facility: [facility] - Location: Radiology Ordered By: David Rome Referrals: Ted Martell MD [Physician] - 1 month (Call the office first thing Friday morning at [phone] to set up an appointment for 1 month) Kylie Vogel [Primary Care Provider] - 4-7 days (Call the office first thing Friday morning at [phone] to schedule an appointment for 4 to 7 days) Sully Chaney FNP [Nurse Practitioner] - 1 week (Call the office first thing Friday morning at [phone] to schedule an appoitment with Sully BRADSHAW in 1 week.) Discharge Diet: Cardiac Discharge Activity: Increase activity as tolerated and As per PT/OT instructions Activity Restrictions/Additional Instructions: Please stop smoking, as this may lead to progression of your heart disease, heart attack, worsening congestive heart failure, stroke, various cancers and other comorbidities. Please continue Lasix 80 mg twice a day for a week, then may switch back to 40 mg twice a day unless your primary care doctor or email campaign specialist would li ke you to continue higher dosing. Please follow-up with your primary care doctor and cardiology for reassessment of volume status, and any additional medication adjustment. Continue self catheterizations. Continue follow-up with Dr. Millan. Discussed with your primary care provider and Dr. Flores regarding urinary tract infection (Enterobacter cloacae). Continue low-sodium diet. Continue daily weights. If you are gaining more than 3 pounds in 2 days after resuming usual Lasix dose for 2 days, consider doubling Lasix dose and contacting cardiology office for additional recommendations. Continue to monitor blood pressure at least twice daily, record values to bring to your appointment. Continue to work with your primary care doctor and principal electrical engineer to optimize blood pressure control. Please have your primary care doctor follow-up on your kidney function with noted chronic kidney disease. Discharge Attestations Time Spent in Discharge Care*: greater than 30 min Quality Metrics Clinical Quality Measures During this hospital stay, did patient experience: None Coding Level of Care Code Acute Brush Head Maker for g Fwd Diagnoses CHF (congestive heart failure) I50.9 Troponin level elevated R77.8 UTI (urinary tract infection) N39.0
== END 2020-05-14 12:14 | disposition home or self-care (01) | DRG 291 ==
LOC: ER 15:16 → MEDSURG 16:19
PROVIDERS: Admitting Provider Internal Medicine; Emergency Provider Family Medicine; PCP Registered Nurse; Visit Provider Internal Medicine
DX: I13.0 Hypertensive heart and chronic kidney disease with heart failure and stage 1 through stage 4 chronic kidney disease, or unspecified chronic kidney disease (principal); I50.43 Acute on chronic combined systolic (congestive) and diastolic (congestive) heart failure; N39.0 Urinary tract infection, site not specified; N18.9 Chronic kidney disease, unspecified; G35 Multiple sclerosis; N31.9 Neuromuscular dysfunction of bladder, unspecified; I25.10 Atherosclerotic heart disease of native coronary artery without angina pectoris; Z95.5 Presence of coronary angioplasty implant and graft; F17.210 Nicotine dependence, cigarettes, uncomplicated; I25.2 Old myocardial infarction; E78.5 Hyperlipidemia, unspecified; I25.5 Ischemic cardiomyopathy; Z79.02 Long term (current) use of antithrombotics/antiplatelets; B96.89 Other specified bacterial agents as the cause of diseases classified elsewhere
CPT/HCPCS: 12345; 36415; 51702; 71045; 80053; 81001; 83735; 83880; 84484; 85025; 87077; 87086; 87186; 93005; 93308; 96372; 97162; 97530; 99282; J1644; J1940; J2270

== ENCOUNTER → 2021-10-18 08:56 | Outpatient (BNVA) | payer MEDICARE, SELFPAY | PROVIDERS: PCP Registered Nurse; Referring Provider Registered Nurse; Visit Provider Surgery | DX: Z12.11 Encounter for screening for malignant neoplasm of colon (principal) | CPT/HCPCS: 99024 ==

== ENCOUNTER → 2021-11-08 13:07 | Outpatient (BNVA) | payer MEDICARE, SELFPAY | PROVIDERS: PCP Registered Nurse; Visit Provider Surgery | DX: Z12.11 Encounter for screening for malignant neoplasm of colon (principal) | CPT/HCPCS: 99203 ==

== ENCOUNTER 2021-11-22 06:08 | Inpatient (IN) | payer MEDICARE, SELFPAY ==
[2021-11-22] VITALS (102 sets, daily range): BP systolic 129–228; BP diastolic 56–137; PULSE 52–95; RESP 9–32; TEMP 36.9–37.1; O2SAT 78–98; BMI 38.4
--- NOTE | 2021-11-22 06:35 | XRR_ITS ---
PROCEDURE INFORMATION: Exam: XR Chest Exam date and time: 11/22/2021 6:49 AM Age: 66 years old Clinical indication: Angina; Patient HX: Chest pain TECHNIQUE: Imaging protocol: Radiologic exam of the chest. Views: 1 view. COMPARISON: CR XR chest 1V portable [id number] 05/10/2020 12:30 PM FINDINGS: Lungs: Pulmonary venous congestion or low-grade interstitial edema. Pleural spaces: Minor blunting of the right costophrenic angle. Heart/Mediastinum: Marked cardiac enlargement relatively stable. Bones/joints: Unremarkable. XR/XR chest 1V portable [id number] IMPRESSION: 1. Prominent cardiomegaly persistent. 2. Pulmonary venous congestion and suspected low-grade interstitial edema.
--- NOTE | 2021-11-22 06:36 | ECG_ITS ---
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 Measurements Intervals [place] Rate: 84 P: 58 NH: 231 QRS: 117 QRSD: 197 T: -25 QT: 438 QTc: 520 Interpretive Statements SINUS RHYTHM WITH FIRST DEGREE AV BLOCK POSSIBLE LEFT ATRIAL ENLARGEMENT [-0.1mV P-WAVE IN V1/V2] RIGHT BUNDLE BRANCH BLOCK [120+ ms QRS DURATION, UPRIGHT V1, 40+ ms S IN I/aVL/V4/V5/V6] LEFT POSTERIOR FASCICULAR BLOCK [QRS AXIS > 109, INFERIOR Q] ST DEVIATION AND MARKED T-WAVE ABNORMALITY, CONSIDER ANTERIOR ISCHEMIA [-0.5+ mV T-WAVE IN V3/V4] Compared to ECG 05/10/2020 14:15:28 Left posterior fascicular block now present T-wave abnormality still present Possible ischemia still present Electronically Signed On 11-22-2021 22:42:12 CDT by Debora Sevilla M.D. [id number]
--- NOTE | 2021-11-22 06:39 | ED_ITS ---
HPI - Chest Pain General: Chief Complaint: ER Hold Stated Complaint: chest pain Time Seen by Provider: 11/22/21 06:08 Source: patient Mode of arrival: ambulatory Limitations: no limitations History of Present Illness: 66-year-old male with a known history of coronary disease presents emergency room with complaints of shortness of breath and increasing episodes of chest pain. Patient states that minimal activity gets very short of breath and diaphoretic he takes nitro has been taking more more often. Evidently yesterday it was filled and he took 20 tablets in less than 24-hour. He does state the frequency of the episodes is increasing but the intensity has stayed approximately the same. Several years ago he had angiography with stenting. He tells me that that told him they may do a repeat angiography but he has not yet had it done. Patient denies being diabetic but he does admit to still continue to smoke more than half a pack per day. Reviewing his chart and his most recent echocardiogram on file shows an ejection fraction of 35 to 40%. He tells me Dr. Calloway had previously done an angiogram on him but reviewing the older chart portion of the EMR I cannot find documentation of this. MD complaint: chest pain, chest heaviness and chest discomfort Pertinent past history: coronary artery disease Onset (ago): week(s) Timing of current episode: episodic Prior episodes: Yes Onset: during rest Pain location: left chest Pain radiation: left arm and neck Severity: moderate Quality: tightness, aching and heaviness Relieving factors: nitroglycerin Exacerbating factors: exertion Associated symptoms: Reports diaphoresis, dyspnea, leg edema and nausea; Deny abdominal pain, fever(s), palpitations, sense of impending doom, syncope or vomiting Treatment prior to arrival: aspirin and nitroglycerin Risk Factors: Coronary artery disease risk factors: smoking history Review of Systems Const: Reports: diaphoresis; Denies: fever(s), chills, fatigue or malaise ENMT: Denies: throat pain, ear or mastoid pain, nasal discharge or nasal congestion Card: Reports: chest pain; Denies: palpitations or syncope Resp: Reports: dyspnea GI: Reports: nausea; Denies: abdominal pain or vomiting : Denies: flank pain, difficulty urinating, dysuria, urinary frequency or urinary urgency Skin/Breast: Denies: rash or pruritus PFS ED PFSH: Medical History CHF (congestive heart failure) Chronic kidney disease History of non-ST elevation myocardial infarction (NSTEMI) HTN (hypertension) Hyperlipidemia Ischemic cardiomyopathy Lacunar infarction Multiple sclerosis Multiple sclerosis Multiple sclerosis Tobacco dependency Troponin level elevated Urinary retention Surgical History History of esophagogastroduodenoscopy (EGD) Hx of colonoscopy with polypectomy Hx of heart artery stent stents x , 2018- unknown vessels Family History Sister Heart disease Hypertension Myocardial infarction Mother Cancer Daughter Myocardial infarction Social History Smoking and tobacco status: current every day smoker cigarettes Packs smoked per day: 0.5 [ Other cigarette details: Cutting down] Alcohol intake: never Adopted: No Caregiver/support person: No Lives independently: No Marital status: Single Physical Exam Const: GENERAL APPEARANCE: cooperative and comfortable ORIENTATION/CONSCIOUSNESS: Yes awake, Yes oriented to person, Yes oriented to place and Yes oriented to time HENMT: COMMON NORMALS: normocephalic, atraumatic and hearing grossly normal bilaterally HEAD & SCALP: normocephalic and atraumatic Eye: COMMON NORMALS: Equal, round and reactive pupils present, EOMs intact bilaterally, conjunctivae normal and no scleral icterus CONJUNCTIVA: Yes conjunctivae normal PUPIL: Yes Equal, round and reactive pupils present Resp: COMMON NORMALS: normal respiratory effort, No retractions, No use of accessory muscles and clear to auscultation bilaterally AUSCULTATION: clear to auscultation bilaterally Cardio: COMMON NORMALS: regular rate, regular rhythm and No murmurs present (Cardio) RATE: regular rate RHYTHM: regular rhythm GI: COMMON NORMALS: Soft to palpation and No hepatosplenomegaly present AUSCULTATION: Yes normoactive bowel sounds PALPATION: Yes Soft to palpation, No Tenderness to palpation present (GI), No Guarding due to palpation present (GI) and Yes No hepatosplenomegaly present Extremity: GENERAL: Yes edema (2+ edema chronic lower extremities) Neuro: SENSORIUM/ORIENTATION: Yes oriented to person, Yes oriented to place and Yes oriented to time Skin: OTHER: Chronic venous stasis changes in lower extremities Course Vital Signs: Vital signs: Vital Signs Temperature 98.7 F 11/23/21 04:00 Pulse Rate 64 11/23/21 10:30 Respiratory Rate 18 11/23/21 10:30 Blood Pressure 155/68 11/23/21 10:30 Pulse Oximetry 90 11/23/21 10:30 Oxygen Delivery Me thod 11/23/21 06:00 Oxygen Flow Rate 2 11/22/21 20:00 MDM - Chest Pain Medical Decision Making Patient has accelerated hypertension in the emergency room started on a Nitropaste initially and changed from nitro drip. Will admit given his frequent use of nitro with relief of symptoms with nitro. He is not currently having any chest pain does not have any acute EKG change discussed with hospitalist orders written Medical Records I reviewed the patient's medical records. Lab Data I reviewed the patient's lab results. : 11/23/21 05:22 11/23/21 07:54 Radiology Impressions Chest X-Ray 11/22/21 06:35 IMPRESSION: 1. Prominent cardiomegaly persistent. 2. Pulmonary venous congestion and suspected low-grade interstitial edema. Laboratory Results WBC 11.8 10^3/uL (4.0-10.0) H 11/22/21 06:28 RBC 4.84 10^6/uL (4.1-5.3) 11/22/21 06:28 Hgb 14.5 g/dL (11.7-16.6) 11/22/21 06:28 Hct 45.8 % (42.0-52.0) 11/22/21 06:28 MCV 94.6 fl (80-94) H 11/22/21 06:28 MCH 30.0 pg (28.0-34.0) 11/22/21 06:28 MCHC 31.7 g/dL (30.0-36.0) 11/22/21 06:28 RDW 17.3 % (12.1-15.1) H 11/22/21 06:28 Plt Count 245 10^3/cmm (130-400) 11/22/21 06:28 MPV 10.1 fL (7.4-10.4) 11/22/21 06:28 Neut % (Auto) 77.8 % 11/22/21 06:28 Lymph % (Auto) 8.8 % 11/22/21 06:28 [place] % (Auto) 7.8 % 11/22/21 06:28 Eos % (Auto) 4.5 % 11/22/21 06:28 Baso % (Auto) 0.8 % 11/22/21 06:28 Neut # (Auto) 9.20 10^3/uL (1.8-7.7) H 11/22/21 06:28 Lymph # (Auto) 1.0 10^3/uL (0.8-4.8) 11/22/21 06:28 [place] # (Auto) 0.9 10^3/uL (0.2-0.9) 11/22/21 06:28 Eos # (Auto) 0.5 10^3/uL (0.0-0.8) 11/22/21 06:28 Baso # (Auto) 0.1 10^3/uL (0.0-0.1) 11/22/21 06:28 Nucleated RBC % (auto) 0 % 11/22/21 06:28 Nucleated RBCs # 0.0 /100WBC 11/22/21 06:28 Sodium 141 mmol/L (136-145) 11/22/21 06:28 Potassium 3.9 mmol/L (3.5-5.1) 11/22/21 06:28 Chloride 102 mmol/L (98-107) 11/22/21 06:28 Carbon Dioxide 27 mmol/L (22-29) 11/22/21 06:28 Anion Gap 15.9 (5-19) 11/22/21 06:28 BUN 13 mg/dL (8-23) 11/22/21 06:28 Creatinine 1.2 mg/dL (0.7-1.2) 11/22/21 06:28 GFR Calculation 60.4 mL/min (90-130) L 11/22/21 06:28 Glucose 132 mg/dL (65-115) H 11/22/21 06:28 Calculated Osmolality 294 mOsm/kg (285-295) 11/22/21 06:28 Calcium 9.0 mg/dL (8.5-10.5) 11/22/21 06:28 Total Bilirubin 0.6 mg/dL (0.15-1.2) 11/22/21 06:28 AST 10 U/L (0-40) 11/22/21 06:28 ALT 11 U/L (0-41) 11/22/21 06:28 Alkaline Phosphatase 122 U/L (40-130) 11/22/21 06:28 Creatine Kinase 37 U/L (39-308) L 11/22/21 06:28 Troponin T Baseline 41 ng/L (0-15) H 11/22/21 06:28 Troponin T 120 Minute 36.55 ng/L (0-15) H 11/22/21 08:20 Delta Troponin T -4.45 ABS# (0-10) L 11/22/21 08:20 Total Protein 7.3 g/dL (6.6-8.7) 11/22/21 06:28 Albumin 4.1 g/dL (3.5-5.2) 11/22/21 06:28 Globulin 3.2 g/dL (1.3-4.6) 11/22/21 06:28 Lipase 23 U/L (13-60) 11/22/21 06:28 TSH 1.36 uIU/mL (0.27-4.20) 11/22/21 06:28 Urine Color Straw (Yellow) 11/22/21 11:25 Urine Appearance Clear (CLEAR) 11/22/21 11:25 Urine pH 7 (5-7) 11/22/21 11:25 Ur Specific [place] 1.005 (1.005-1.030) 11/22/21 11:25 Urine Protein Neg (Negative) 11/22/21 11:25 Urine Glucose (UA) Norm (Normal) 11/22/21 11:25 Urine Ketones Negative (Negative) 11/22/21 11:25 Urine Blood Neg (Negative) 11/22/21 11:25 Urine Nitrate Negative (Negative) 11/22/21 11:25 Urine Bilirubin Neg (Negative) 11/22/21 11:25 Urine Urobilinogen Norm mg/dL (Negative) 11/22/21 11:25 Ur Leukocyte Esterase Negative (Negative) 11/22/21 11:25 Urine RBC Rare /hpf (0-2) 11/22/21 11:25 Urine WBC Rare /hpf (0-5) 11/22/21 11:25 Ur Squamous Epith Cells Rare /hpf (0-5) 11/22/21 11:25 Amorphous Sediment Not Reportable 11/22/21 11:25 Urine Bacteria Trace /hpf (NONE) 11/22/21 11:25 Discharge Plan Discharge Patient Disposition: Admitted As Inpatient Admit Provider: Julian Murray Clinical Impression: Chest pain, Decompensated heart failure, Coronary artery disease, Chronic kidney disease, Acute on chronic renal failure, Hypertensive urgency Condition: Stable Coding Level of Care Code ED Ticket Speculator for Kathryn Olmstead
[2021-11-22 07:10] LABS: Basophils # 0.1 10^3/uL (0.0-0.1); Basophils % 0.8 %; Eosinophils # 0.5 10^3/uL (0.0-0.8); Eosinophils % 4.5 %; Hematocrit 45.8 % (42.0-52.0); Hemoglobin 14.5 g/dL (11.7-16.6); Lymphocytes % 8.8 %; Mean Corpuscular HGB Conc 31.7 g/dL (30.0-36.0); Mean Corpuscular Volume 94.6 fl (80-94); Mean Platelet Volume 10.1 fL (7.4-10.4); Monocytes # 0.9 10^3/uL (0.2-0.9); Monocytes % 7.8 %; Neutrophils % 77.8 %; Nucleated Red Blood Cells % 0 %; Platelet Count 245 10^3/cmm (130-400); Red Blood Count 4.84 10^6/uL (4.1-5.3); Red Cell Distribution Width 17.3 % (12.1-15.1); White Blood Count 11.8 10^3/uL (4.0-10.0)
[2021-11-22 07:21] LABS: Troponin(5th) Baseline 41 ng/L (0-15)
[2021-11-22] MEDS: metoprolol tartrate 1 mg/1 mL SDV 5 mL 5 MG IVP (07:24)
[2021-11-22] MEDS: aspirin 81 mg Chew Tablet 324 MG PO (07:24)
[2021-11-22] MEDS: nitroglycerin drip 50 MG/250 ML PREMIX IV (07:24)
[2021-11-22 07:25] LABS: Alanine Aminotransferase 11 U/L (0-41); Albumin Level 4.1 g/dL (3.5-5.2); Alkaline Phosphatase 122 U/L (40-130); Anion Gap 15.9 (5-19); Aspartate Amino Transferase 10 U/L (0-40); Blood Urea Nitrogen 13 mg/dL (8-23); Carbon Dioxide 27 mmol/L (22-29); Chloride 102 mmol/L (98-107); Creatine Phosphokinase 37 U/L (39-308); Globulin 3.2 g/dL (1.3-4.6); Glomerular Filtration Rate 60.4 mL/min (90-130); Glucose 132 mg/dL (65-115); Lipase 23 U/L (13-60); Osmolality Calculated 294 mOsm/kg (285-295); Potassium 3.9 mmol/L (3.5-5.1); Sodium 141 mmol/L (136-145); Total Bilirubin 0.6 mg/dL (0.15-1.2); Total Protein 7.3 g/dL (6.6-8.7)
--- NOTE | 2021-11-22 07:40 | PC.NURSE ---
PT PLACED ON CONTINUOUS NIBP, SPO2, AND CM
--- NOTE | 2021-11-22 08:14 | PC.PHAR ---
pt and pts verified pts medications-pts states the pt stop taking carvedilol for a few days states he thought it was making him sweat-states the pt did take yesterday-pts states the pt has been taking alot of nitro-states the pt took 20 tabs yesterday 11/21/21-notes are made in the pharmacy comments
--- NOTE | 2021-11-22 08:44 | ECG_ITS ---
[facility] Test Date: 2021-11-22 Pat Name: Armando Coleman Department: Room: Gender: Male Monotyper: : 1955 Requested By: Bulmaro Tinajero Order Number: [id number] Johanny MD: Debora Sevilla M.D. Measurements Intervals [place] Rate: 72 P: 50 AL: 251 QRS: 94 QRSD: 199 T: -60 QT: 474 QTc: 521 Interpretive Statements SINUS RHYTHM WITH FIRST DEGREE AV BLOCK POSSIBLE LEFT ATRIAL ENLARGEMENT [-0.1mV P-WAVE IN V1/V2] RIGHT BUNDLE BRANCH BLOCK [120+ ms QRS DURATION, UPRIGHT V1, 40+ ms S IN I/aVL/V4/V5/V6] ST DEVIATION AND MARKED T-WAVE ABNORMALITY, CONSIDER ANTERIOR ISCHEMIA [-0.5+ mV T-WAVE IN V3/V4] ST DEVIATION AND MODERATE T-WAVE ABNORMALITY, CONSIDER INFERIOR ISCHEMIA [-0.1+ mV T-WAVE IN II/aVF] Compared to ECG 11/22/2021 06:25:24 Left posterior fascicular block no longer present T-wave abnormality still present Possible ischemia still present Electronically Signed On 11-22-2021 22:55:07 CDT by Debora Sevilla M.D. [id number]
[2021-11-22 09:02] LABS: Troponin 5 2HR 36.55 ng/L (0-15)
[2021-11-22 09:04] LABS: Troponin 5 2HR Delta -4.45 ABS# (0-10)
[2021-11-22] MEDS: FUROsemide 10 mg/mL SDV 4mL 40 MG IVP ×2 (10:16→21:01)
[2021-11-22] MEDS: clopidogrel 75 mg Tablet PO (10:16)
[2021-11-22] MEDS: losartan 50 mg Tablet 100 MG PO (10:30)
[2021-11-22] MEDS: carvedilol 6.25 mg Tablet PO ×2 (10:30→20:29)
--- NOTE | 2021-11-22 11:02 | PM.HP ---
Providers/Chief Complaint Admitting Physician: Julian Murray MD Primary Care Provider: Kylie Vogel Chief Complaint: chest pain History of Present Illness Armando Coleman is a 66 year old male who presents to the hospital with chest discomfort. He is somewhat a difficult historian but from what I gather he has had more episodes, increasing frequency, have left-sided chest discomfort. He reports this is associated with nausea and diaphoresis. He takes quite a bit of nitroglycerin for this and has for some time but reports is not as effective, and only lasts for a short period of time. He stops and starts some of his medicine depending on how he feels. He sometimes takes more Lasix than prescribed. Most recently he has stopped his Plavix. He denies any chest discomfort currently. He reports he has been swelling, but it is chronic. He has past history of significant heart disease with multiple stents placed 5 years ago. He reports he had high risk intervention and that was really recommended with bypass surgery but he refused. In the emergency department, he was placed on a nitroglycerin drip secondary to markedly elevated blood pressure, slight elevation of troponin, and clinical history. He also received an aspirin, and some metoprolol IV. Nitroglycerin ointment was tried prior to placing him on a nitroglycerin drip. Review of Systems General: Reports: 10 or more systems reviewed and unremarkable except in HPI and below Const: Denies: fever(s) or chills Eyes: Denies: change in vision ENMT: Denies: throat pain Card: Reports: chest pain Resp: Reports: dyspnea; Denies: productive cough or non-productive cough GI: Reports: nausea; Denies: abdominal pain or vomiting : Reports: difficulty urinating (History of urinary retention); Denies: flank pain Musc: Denies: neck pain Skin/Breast: Denies: rash Neuro: Denies: headache(s) Psych: Denies: anxiety or depression Endo: Denies: polyuria [place]/Lymph: Denies: easy bruising All/Imm: Denies: urticaria or throat swelling Medications/Allergies Home Medications Medication Instructions Recorded Confirmed Last Taken Type nitroglycerin 0.4 mg sublingual 0.4 mg sublingual Q5M PRN chest 04/27/19 11/22/21 11/21/21 Rx tablet pain #30 tabs 20 tabs per pt & wif carvedilol 6.25 mg tablet 6.25 mg PO BID #60 tabs 06/13/21 11/22/21 11/21/21 Rx aspirin 325 mg tablet 325 mg PO BID 11/22/21 11/22/21 Unknown History atorvastatin 40 mg tablet 40 mg PO QPM 11/22/21 11/22/21 Unknown History clopidogrel 75 mg tablet 75 mg PO QAM 11/22/21 11/22/21 Unknown History furosemide 40 mg tablet 40 mg PO BID 11/22/21 11/22/21 Unknown History losartan 100 mg tablet 100 mg PO QAM 11/22/21 11/22/21 Unknown History potassium chloride 10 mEq 10 meq PO QPM 11/22/21 11/22/21 Unknown History tablet,extended release Allergies Allergy/AdvReac Type Severity Reaction Status Date / Time No Known Allergies Allergy Verified 11/22/21 07:48 PFSH Acute PFSH: Medical History (Updated 11/22/21 @ 11:19 by Julian Murray MD) CHF (congestive heart failure) Chronic kidney disease History of non-ST elevation myocardial infarction (NSTEMI) HTN (hypertension) Hyperlipidemia Ischemic cardiomyopathy Lacunar infarction Multiple sclerosis Multiple sclerosis Multiple sclerosis Tobacco dependency Troponin level elevated Urinary retention Surgical History History of esophagogastroduodenoscopy (EGD) Hx of colonoscopy with polypectomy Hx of heart artery stent stents x 2017- unknown vessels Family History Sister Heart disease Hypertension Myocardial infarction Mother Cancer Daughter Myocardial infarction Social History Smoking and tobacco status: current every day smoker cigarettes Packs smoked per day: 0.5 [ Other cigarette details: Cutting down] Alcohol intake: never Adopted: No Caregiver/support person: No Lives independently: No Marital status: Single Vitals/I&O/Wt Last Vital Signs Temp 98.8 F 11/22/21 06:25 Pulse 77 11/22/21 09:26 Resp 18 11/22/21 09:26 BP 224/131 11/22/21 10:30 Pulse Ox 97 11/22/21 09:26 O2 Del Method 11/22/21 09:26 11/21/21 11/22/21 11/22/21 22:59 06:59 14:59 Intake Total 17.025 / 17.025 Balance 17.025 / 17.025 Weight last 48 hrs Weight 117.934 kg Physical Exam Narrative: General exam is a male, with mild respiratory distress with obvious edema. He reports no chest discomfort currently. HEENT: Pupils equally round. Atraumatic and normocephalic. Oropharynx with poor dentition. Neck is supple no lymphadenopathy thyromegaly Cardiovascular regular rate and rhythm with a 2/6 systolic murmur heard best at the left lower sternal border Lungs few crackles at the bases and diminished breath sounds bilaterally Abdomen is soft obese nontender with positive bowel sounds. No obvious organomegaly exam is deferred Extremities no cyanosis or clubbing. 2+ edema with chronic venous stasis changes are present bilaterally Skin see above Neuro no obvious focal deficits. Data : 11/22/21 06:28 11/22/21 06:28 Other Labs: LFTs are normal, calcium normal, troponin 41 with repeat of 36 Lipase normal Chest x-ray shows cardiomegaly, pulmonary congestion Last echocardiogram May 2020 demonstrated moderate MR, EF of 40% and 3/4 diastolic dysfunction EKG demonstrates sinus rhythm, borderline right axis deviation, right bundle branch block, left posterior fascicular block A&P Assessment and plan (1) Chest pain: Patient presents with chest discomfort. He has known coronary disease with previous angiogram and stenting around 5 years ago. Troponin does not show significant delta, and is likely a type II elevation. Besides possibility of angina causing chest discomfort other possibilities include uncontrolled hypertension with hypertensive urgency, and congestive heart failure. Full dose anticoagulation Continue statin, beta-mariel, aspirin Restart the patient's Plavix Cardiology consultation Limited echocardiogram Check TSH Status: Acute (2) Hypertensive urgency: Currently on a nitroglycerin drip Reinitiate home medicines Possibly add Norvasc depending on blood pressure response Hydralazine as needed Continue patient's losartan, carvedilol Status: Acute (3) Elevated troponin: Likely type II elevation Status: Acute (4) Decompensated heart failure: Patient with evidence of edema, crackles on exam, chest x-ray consistent with congestive heart failure. Initiate Lasix 40 mg IV every 12 hours for decompensated acute systolic as well as acute diastolic heart failure. Limited echo Cardiology consult as above Status: Acute Plan Multiple other medical problems as outlined in past medical history Full code Lovenox will suffice for DVT prophylaxis Protonix for GI prophylaxis Attestations Medical Necessity Statement*: Will need greater than 2 midnight stay for evaluation and treatment of acute congestive heart failure, elevated troponin, hypertensive urgency. Critical Care Time: The high probability of a clinically significant, sudden or life threatening deterioration of the patient's [cardiac, pulmonary] system(s) required my full and direct attention, intervention and personal management. The critical care time is as shown. This time is in addition to time spent performing any reported procedures but includes the following: [x] Data and vital sign review and interpretation [x] Patient assessment, examination and intervention [x] Documentation [x] Medication orders and management Critical Care Time (min): 49 Coding Level of Care Code Acute Pipe Bending Machine Operator for Frederickg Fwd Diagnoses Chest pain R07.9 Hypertensive urgency I16.0 Elevated troponin R77.8 Decompensated heart failure I50.9
--- NOTE | 2021-11-22 11:44 | USCV_ITS ---
Armando Coleman Age: 66 Gender: M : 1955 Exam Date: 11/22/2021 13:25 Ordering Phys: Julian Murray MD Technologist: Federico Espinoza [place] [facility] [place]: chf cardiomyopathy BP: / HR: Rhythm: Sinus Technical Quality: MEASUREMENTS (Male / Female) Normal Values FINDINGS Left Ventricle Right Ventricle Right Atrium Left Atrium Mitral Valve Aortic Valve Tricuspid Valve Pulmonic Valve Pericardium Aorta IVC CONCLUSIONS Technically very limited quality echocardiogram because of poor ultrasonic windows. Grossly LV systolic function appears to be severely reduced. Regional wall motion abnormalities cannot be assessed because of poor visualization. For better assessment, order limited echocardiogram with contrast. Parish Lea MD (Electronically Signed) Final Date: 22 November 2021 16:36 S
[2021-11-22 11:49] LABS: Thyroid Stimulating Hormone 1.36 uIU/mL (0.27-4.20)
[2021-11-22] MEDS: enoxaparin 120 mg/0.8 mL Syringe SUBCUT ×2 (12:09→23:49)
[2021-11-22 12:18] LABS: Bilirubin Urine Neg (Negative); Blood Urine Neg (Negative); Glucose Urine UA Norm (Normal); Ketones Urine Negative (Negative); Leukocyte Esterase Urine Negative (Negative); Nitrate Urine Negative (Negative); Protein Urine Neg (Negative); Specific Gravity, Urine 1.005 (1.005-1.030); Urine Appearance Clear (CLEAR); Urine Color Straw (Yellow); Urobilinogen Urine Norm (Negative); pH Urine 7 (5-7)
[2021-11-22 12:25] LABS: Bacteria Urine TRACE /hpf; RBC Urine RARE /hpf (0-2); Squamous Epithelial Cell Urine RARE /hpf (0-5); WBC Urine RARE /hpf (0-5)
--- NOTE | 2021-11-22 13:23 | ECG_ITS ---
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 Measurements Intervals [place] Rate: 58 P: 74 [place]: 247 QRS: 106 QRSD: 197 T: -53 QT: 520 QTc: 512 Interpretive Statements SINUS BRADYCARDIA WITH FIRST DEGREE AV BLOCK RIGHT AXIS DEVIATION [QRS AXIS > 100] RIGHT BUNDLE BRANCH BLOCK [120+ ms QRS DURATION, UPRIGHT V1, 40+ ms S IN I/aVL/V4/V5/V6] ST DEVIATION AND MARKED T-WAVE ABNORMALITY, CONSIDER ANTEROLATERAL ISCHEMIA [-0.5+ mV T-WAVE IN I/aVL/V3-V6] ST DEVIATION AND MODERATE T-WAVE ABNORMALITY, CONSIDER INFERIOR ISCHEMIA [-0.1+ mV T-WAVE IN II/aVF] Compared to ECG 11/22/2021 08:44:22 Right-axis deviation now present Sinus rhythm no longer present T-wave abnormality still present Possible ischemia still present Electronically Signed On 11-22-2021 22:56:31 CDT by Debora Sevilla M.D. [id number]
--- NOTE | 2021-11-22 17:02 | P.CONIM_ITS ---
Providers/Reason For Consult Consulting Physician/Specialty*: Parish Lea MD/ Cardiology Reason for Consult*: Worsening angina Requesting Physician: Dr Murray Attending Physician: Julian Murray MD Primary Care Provider: Kylie Vogel History of Present Illness History of Present Illness Armando Coleman is a 66 year old male with past medical history of hypertension, CAD s/p multiple PCI's, ischemic cardiomyopathy has presented to the hospital with increasing frequency of substernal and left-sided chest pain. According to patient for the last several weeks he has been having severe worsening anginal pain. He is using multiple nitros every day. He also feels short of breath. On presentation to hospital his blood pressure was very high. He was started on nitroglycerin drip. His initial troponin was 41 and has trended down to 37 at 6 hours. EKG shows right bundle branch block and sinus rhythm. Limited echocardiogram was performed that showed severely reduced LV systolic function however poor ultrasonic windows did not allow accurate assessment of regional wall motion abnormalities. Review of Systems General: Reports: 10 or more systems reviewed and unremarkable except in HPI and below Const: Denies: fever(s) or chills Eyes: Denies: change in vision ENMT: Denies: throat pain Card: Reports: chest pain Resp: Reports: dyspnea; Denies: productive cough or non-productive cough GI: Reports: nausea; Denies: abdominal pain or vomiting : Reports: difficulty urinating (History of urinary retention); Denies: flank pain Musc: Denies: neck pain Skin/Breast: Denies: rash Neuro: Denies: headache(s) Psych: Denies: anxiety or depression Endo: Denies: polyuria Delano/Lymph: Denies: easy bruising All/Imm: Denies: urticaria or throat swelling Medications/Allergies Home Medications Medication Instructions Recorded Confirmed Last Taken Type nitroglycerin 0.4 mg sublingual 0.4 mg sublingual Q5M PRN chest 04/27/19 11/22/21 11/21/21 Rx tablet pain #30 tabs 20 tabs per pt & wif carvedilol 6.25 mg tablet 6.25 mg PO BID #60 tabs 06/13/21 11/22/21 11/21/21 Rx aspirin 325 mg tablet 325 mg PO BID 11/22/21 11/22/21 Unknown History atorvastatin 40 mg tablet 40 mg PO QPM 11/22/21 11/22/21 Unknown History clopidogrel 75 mg tablet 75 mg PO QAM 11/22/21 11/22/21 Unknown History furosemide 40 mg tablet 40 mg PO BID 11/22/21 11/22/21 Unknown History losartan 100 mg tablet 100 mg PO QAM 11/22/21 11/22/21 Unknown History potassium chloride 10 mEq 10 meq PO QPM 11/22/21 11/22/21 Unknown History tablet,extended release Allergies Allergy/AdvReac Type Severity Reaction Status Date / Time No Known Allergies Allergy Verified 11/22/21 07:48 Current Medications Generic Name Dose Route Start Last Admin Trade Name Sheltonq PRN Reason Stop Dose Admin Carvedilol 6.25 mg 11/22/21 10:00 11/22/21 10:30 Carvedilol 6.25 Mg Tablet PO 6.25 mg BID@0900,2100 EM Administration Clopidogrel Bisulfate 75 mg 11/22/21 10:00 11/22/21 10:16 Clopidogrel 75 Mg Tablet PO 75 mg DAILY EM Administration Enoxaparin Sodium 120 mg 11/22/21 12:30 11/22/21 12:09 Enoxaparin 120 Mg/0.8 Ml Syringe SUBCUT 120 mg Q12H EM Administration Nitroglycerin/Dextrose 50 mg in 250 mls @ 0 mls/hr 11/22/21 07:15 11/22/21 16:56 Nitroglycerin Drip IV 80 mcg/min .Q0M EM 24 mls/hr Titration Protocol Per Protocol Losartan Potassium 100 mg 11/22/21 10:00 11/22/21 10:30 Losartan 50 Mg Tablet PO 100 mg DAILY EM Administration PFSH Acute PFSH: Medical History CHF (congestive heart failure) Chronic kidney disease History of non-ST elevation myocardial infarction (NSTEMI) HTN (hypertension) Hyperlipidemia Ischemic cardiomyopathy Lacunar infarction Multiple sclerosis Multiple sclerosis Multiple sclerosis Tobacco dependency Troponin level elevated Urinary retention Surgical History History of esophagogastroduodenoscopy (EGD) Hx of colonoscopy with polypectomy Hx of heart artery stent stents x 2, 2017- unknown vessels Family History Sister Heart disease Hypertension Myocardial infarction Mother Cancer Daughter Myocardial infarction Social History Smoking and tobacco status: current every day smoker cigarettes Packs smoked per day: 0.5 [ Other cigarette details: Cutting down] Alcohol intake: never Adopted: No Caregiver/support person: No Lives independently: No Marital status: Single Vitals/I&O/Wt Last Vital Signs Temp 98.8 F 11/22/21 06:25 Pulse 61 11/22/21 16:50 Resp 16 11/22/21 16:50 BP 172/95 11/22/21 16:50 Pulse Ox 94 11/22/21 16:50 O2 Del Method 11/22/21 11:07 O2 Flow Rate 2 11/22/21 11:07 11/22/21 11/22/21 11/22/21 06:59 14:59 22:59 Intake Total 90.400 / 90.400 43.05 / 133.450 Balance 90.400 / 90.400 43.05 / 133.450 Weight last 48 hrs Weight 260 lb Physical Exam Narrative: GENERAL: Patient is alert, awake and oriented x3. [] NECK: No jugular vein distension. [] HEENT: No cyanosis. No icterus. No pallor. [] HEART: Regular S1 and S2. No murmur, rub or gallop. [] LUNGS: Clear to auscultate bilaterally. [] ABDOMEN: Soft, nontender and nondistended. Positive bowel sounds. No guarding, rebound or tenderness. [] CENTRAL NERVOUS SYSTEM: Grossly nonfocal. [] EXTREMITIES: Lower extremities with 2+ edema bilaterally. Pulses palpable in the lower extremities, both dorsalis pedis and posterior tibial. [] Urinary Catheter Management: Barros: Cath Placed During This Visit: yes Urinary Catheter Date of Insertion: 11/22/21 Urinary Catheter Time of Insertion: 12:26 Data : 11/23/21 05:22 11/23/21 07:54 A&P Assessment and plan (1) Chest pain: Status: Acute (2) Hypertensive urgency: Status: Acute (3) Chronic kidney disease: Status: Acute (4) Coronary artery disease: Status: Acute (5) HTN (hypertension): Status: Acute Qualifiers: Hypertension type: unspecified Qualified Code(s): I10 - Essential (primary) hypertension (6) Ischemic cardiomyopathy: Status: Acute (7) Worsening angina: Status: Acute Plan Patient has presented with worsening anginal symptoms. Has been taking multiple nitroglycerins. Continue aspirin and Plavix. We will plan on coronary angiogram with possible percutaneous coronary intervention tomorrow. N.p.o. past midnight. Risks and benefits of the procedure have been discussed with the patient. He understands risks and benefits and wants to proceed with the procedure. Will need better control of hypertension. On losartan. Can add amlodipine. Continue Coreg. Monitor renal function. Thank you for involving us with care of this patient. We will continue to follow. Please call with questions. Consult Attestations Medical Necessity Statement: Care expected to cross 2 midnights. Coding Level of Care Code Acute Manufacturing Intern for Kathryn Olmstead Diagnoses Chest pain R07.9 Hypertensive urgency I16.0 Chronic kidney disease N18.9 Coronary artery disease I25.10 HTN (hypertension) I10 Hypertension type: unspecified Ischemic cardiomyopathy I25.5 Worsening angina I20.0
[2021-11-22] MEDS: atorvastatin 40 mg Tablet PO (17:45)
--- NOTE | 2021-11-22 20:47 | PC.NURSE ---
Patient climbing out of bed and very anxious. Patient has vape and cigarettes and lighters at bedside. Removed from bedside, placed in bag, labeled with patients sticker, and placed in pyxis. Patient requesting nicotine patch or gum. Dr. Guerin states no he can not have any nicotine replacement due to the chest pain. Notified Patient. Patient resting in bed at present time.
[2021-11-22] MEDS: nitroglycerin drip 50 MG/250 ML PREMIX 24 MG IV (21:01)
[2021-11-22] MEDS: acetaminophen 325 mg Tablet 650 MG PO (22:10)
--- NOTE | 2021-11-22 22:14 | PC.NURSE ---
Patient O2 saturations 88-90%. Patient continues to pull oxygen off of face and after replacing it and educating patient on need to wear the oxygen due to low O2 saturations and chest pain requiring nitroglycerin drip. Patient states Ok but pulls oxygen off again.
[2021-11-23] VITALS (51 sets, daily range): BP systolic 112–196; BP diastolic 37–107; PULSE 54–97; RESP 10–35; TEMP 36.8–37.1; O2SAT 67–98
--- NOTE | 2021-11-23 03:25 | PC.NURSE ---
Patient requesting a cup of coffee. When explained to patient that he could not have anything to eat or drink because the doctor is planning on doing a heart cath today. Patient becomes upset and states well is that doctor around so I can talk to him. Explained to patient that it is 3:30 in the morning and his office messenger is not currently in the hospital.
[2021-11-23 05:36] LABS: Basophils # 0.1 10^3/uL (0.0-0.1); Basophils % 0.8 %; Eosinophils # 0.4 10^3/uL (0.0-0.8); Hematocrit 41.1 % (42.0-52.0); Hemoglobin 12.7 g/dL (11.7-16.6); Lymphocytes # 0.9 10^3/uL (0.8-4.8); Lymphocytes % 7.5 %; Mean Corpuscular HGB Conc 30.9 g/dL (30.0-36.0); Mean Corpuscular Volume 96.9 fl (80-94); Mean Platelet Volume 10.4 fL (7.4-10.4); Monocytes % 8.5 %; Neutrophils # 9.45 10^3/uL (1.8-7.7); Neutrophils % 79.9 %; Nucleated Red Blood Cells % 0 %; Platelet Count 230 10^3/cmm (130-400); Red Blood Count 4.24 10^6/uL (4.1-5.3); Red Cell Distribution Width 17.7 % (12.1-15.1); White Blood Count 11.8 10^3/uL (4.0-10.0)
[2021-11-23] MEDS: hyDRALAzine 20 mg/mL INJ 1 mL 10 MG IVP (05:38)
[2021-11-23 08:39] LABS: Alanine Aminotransferase 9 U/L (0-41); Albumin Level 3.4 g/dL (3.5-5.2); Alkaline Phosphatase 112 U/L (40-130); Aspartate Amino Transferase 11 U/L (0-40); Blood Urea Nitrogen 12 mg/dL (8-23); Calcium 8.8 mg/dL (8.5-10.5); Carbon Dioxide 28 mmol/L (22-29); Chloride 102 mmol/L (98-107); Globulin 3.3 g/dL (1.3-4.6); Glomerular Filtration Rate 84.2 mL/min (90-130); Glucose 135 mg/dL (65-115); Magnesium 2.1 mg/dL (1.7-2.3); Osmolality Calculated 294 mOsm/kg (285-295); Sodium 141 mmol/L (136-145); Total Bilirubin 0.8 mg/dL (0.15-1.2); Total Protein 6.7 g/dL (6.6-8.7)
[2021-11-23] MEDS: amlodipine 5 mg Tablet PO (08:59)
[2021-11-23] MEDS: losartan 50 mg Tablet 100 MG PO (09:00)
[2021-11-23] MEDS: clopidogrel 75 mg Tablet PO (09:00)
[2021-11-23] MEDS: aspirin 325 mg Tablet PO (09:00)
[2021-11-23] MEDS: FUROsemide 10 mg/mL SDV 4mL 60 MG IVP ×2 (09:01→20:47)
[2021-11-23] MEDS: pantoprazole DR 40 mg Tablet PO (09:01)
--- NOTE | 2021-11-23 09:17 | P.PN_ITS ---
Subjective Subjective: Armando reports no chest pain currently. He had an episode of shortness of breath this morning. He is still on a nitroglycerin drip secondary to his elevated blood pressure. He is to have an angiogram this morning. Medications: Reviewed: Yes Vitals/I&O/Wt Last Vital Signs Temp 98.7 F 11/23/21 04:00 Pulse 75 11/23/21 06:00 Resp 26 H 11/23/21 06:00 BP 168/94 11/23/21 09:00 Pulse Ox 88 L 11/23/21 06:00 O2 Del Method 11/23/21 06:00 O2 Flow Rate 2 11/22/21 20:00 11/22/21 11/23/21 11/23/21 22:59 06:59 14:59 Intake Total 491.05 / 581.450 299.9 / 881.350 Output Total 1700 / 1700 Balance 491.05 / 581.450 -1400.1 / -818.650 Weight last 48 hrs Weight 122.878 kg Weight 117.934 kg Physical Exam Narrative: General exam is a male, currently in no distress. 800 negative since admission Neck is supple no lymphadenopathy thyromegaly Cardiovascular regular rate and rhythm with a 2/6 systolic murmur heard best at the left lower sternal border Lungs diminished breath sounds at the bases. No obvious crackles Abdomen is soft obese nontender with positive bowel sounds. No obvious orga nomegaly exam is deferred Extremities no cyanosis or clubbing. 2+ edema with chronic venous stasis changes are present bilaterally Skin see above Urinary Catheter Management: Barros: Cath Placed During This Visit: yes Reason for Continuing Indwelling Catheter: Accurate Measurement of Urinary Output in Critically Ill Patients Urinary Catheter Date of Insertion: 11/22/21 Urinary Catheter Time of Insertion: 12:26 Data : 11/23/21 05:22 11/23/21 07:54 A&P Assessment and plan (1) Chest pain: Patient presents with chest discomfort. He has known coronary disease with previous angiogram and stenting around 5 years ago. Troponin does not show significant delta, and is likely a type II elevation. Besides possibility of angina causing chest discomfort other possibilities include uncontrolled hypertension with hypertensive urgency, and congestive heart failure. Continue full dose anticoagulation Continue statin, beta-mariel, aspirin Continue Plavix Appreciate cardiology consultation TSH was checked and normal Limited echocardiogram demonstrated poor windows, severely reduced EF Angiogram anticipated this afternoon Status: Acute (2) Hypertensive urgency: Currently on a nitroglycerin drip Home medications of carvedilol, losartan has been initiated Add Norvasc 5 mg daily Hydralazine as needed After angiogram, could consider converting to p.o. nitroglycerin for blood pressure control Status: Acute (3) Elevated troponin: Likely type II elevation Status: Acute (4) Decompensated heart failure: Consistent with acute systolic heart failure Increase Lasix to 60 mg IV every 12 hours Limited echo demonstrated severely reduced EF Cardiology consultation appreciated, angiogram this afternoon Status: Acute Plan Multiple other medical problems as outlined in past medical history Tobacco dependency. Encourage abstinence Probable COPD. Add budesonide, DuoNeb. Wean oxygen as tolerated. Full code Lovenox will suffice for DVT prophylaxis Protonix for GI prophylaxis Attestations Medical Necessity Statement*: Needs continued hospitalization for definitive evaluation of chest discomfort, and further diuresis secondary to acute systolic heart failure Critical Care Time: The high probability of a clinically significant, sudden or life threatening deterioration of the patient's [cardiac, pulmonary] system(s) required my full and direct attention, intervention and personal management. The critical care time is as shown. This time is in addition to time spent performing any reported procedures but includes the following: [x] Data and vital sign review and interpretation [x] Patient assessment, examination and intervention [x] Documentation [x] Medication orders and management Critical Care Time (min): 31 Coding Level of Care Code Acute Tissue Recovery Technician for Kathryn Olmstead Diagnoses Chest pain R07.9 Hypertensive urgency I16.0 Elevated troponin R77.8 Decompensated heart failure I50.9
[2021-11-23] MEDS: carvedilol 6.25 mg Tablet PO ×2 (09:30→20:47)
--- NOTE | 2021-11-23 09:46 | XACV_ITS ---
Exam Room: [facility] Ht: 175 cm Wt: 122 kg BSA: 2.50 m2 Gender: Male : 1955 Any Known Allergies: No known allergies Exam Priority: Routine Procedure(s): Procedure Description: Diagnostic procedure Procedure Description: PCI procedure Procedure Description: Drug Eluting Coronary Stent Procedure Description: PTCA Procedure Description: Coronary Angiography Diagnostic Cath Status: Urgent Diagnostic Findings * Left Main has no significant disease. * Circumflex has mild luminal irregularities. * Right Coronary Artery has chronic total occlusion of mid vessel.. * LAD has mild luminal irregularities. Mid to distal LAD has critical 95% stenosis. LAD supplies collaterals to the RCA as well.. * Coronary angiography shows right dominance. PCI Status: Urgent PCI Indication: Other Interventional Findings * Procedure detail: We engaged left main artery with XB 3.5 guide catheter. IV heparin was administered to maintain ACT above 250 s. We crossed mid to distal segment critical stenosis with 0.014 run-through guidewire. It was predilated with 2.5 x 15 mm noncompliant balloon. We then placed a 3.0 x 18 mm resolute Cristina drug-eluting stent. There was residual stenosis noted in the proximal segment. We placed a second stent measuring 3.0 x 12 mm resolute [place] and overlapped with the previously placed stent. At this time final angiogram was performed that showed excellent stent expansion, no residual stenosis and DANIEL-3 flow. Guide catheter was removed. Patient left the Zone Maintenance Technician in a stable condition.. * Distal Left Anterior Descendin% stenosis treated with a AB TREK 2.50X15 RX BALLOON, MARTHA ANYX 3.0X18 YARIEL, and MDT R CRISTINA 3.0X12 YARIEL. 0% residual stenosis, DANIEL: 3 flow. Conclusions 1. Critical mid to distal LAD stenosis status post successful revascularization with YARIEL x2.. 2. Distal Left Anterior Descending was treated with a Balloon, Drug Eluting Stent, and Drug Eluting Stent. Recommendations * Dual antiplatelet therapy with aspirin and Plavix for at least 1 year. * High intensity statin therapy. * Outpatient cardiology follow-up in 2-week. Interventional RX Recommendation: PCI w/o planned CABG Diagnostic RX Recommendation: PCI w/o planned CABG Anticoagulation: Heparin Pressures Phase:Rest AO : 176 / 80 ( 111 ) @ 2:14:00 PM 149 / 105 ( 127 ) @ 2:15:00 PM 132 / 94 ( 114 ) @ 2:20:00 PM 204 / 97 ( 132 ) @ 2:25:00 PM 153 / 105 ( 128 ) @ 2:32:00 PM 151 / 112 ( 131 ) @ 2:34:00 PM Clinical Evaluation EBL: 5mL-10mL Procedural Details Procedure Consent Obtained. Pre-Procedure Time Out. Identified patient by full name and date of as verbalized by the patient/guarantor. Does the consent match the physician's order: Yes. Accurate & Complete Informed Consent: Yes. Inpatient/Outpatient History & Physical on Chart: Yes. If H&P is completed, is and addenduem needed: No; If yes, is the addendum complete: N/A. Visualize and Verify Site with Patient/Guarantor: N/A. Relevant Radiology Images available: Yes. Pre-op teaching completed and patient verbalized understanding. The risks, benefits, and alternatives of sedation and/or procedure were discussed by physician. The patient agrees to continue. Procedure started. Physician arrived. Current Diagnosis : NSTEMI. [facility] Clinical Fraility Score: 5: Mildly Frail. Zone Maintenance Technician Indications: ACS > 24 hours. Chest Pain Symptom Assessment: Atypical Angina. Correct patient, site and procedure confirmed by cath team. Current diagnosis: NSTEMI. A 18 gauge IV was started in the left anticubital using aseptic technique. PERRLA. Strong, equal hand supervisor melt house bilaterally. Lungs clear x 5 lobes. IV Fluids: 0.9% NaCl at KVO. 0 mL infused prior to mechanical laboratory technician. Pre Procedural Pulses: right radial was 3+. Oxygen started at 2liters/min via nasal canula. right groin was prepped with chloroprep then draped in the usual sterile fashion. right radial was prepped with chloroprep then draped in the usual sterile fashion. Baseline sample Acquired. HR: 79 BPM. Physician scrubbed in. Immediate Pre-Procedure Time Out. Correct Patient: Yes; Correct Procedure: Yes; Correct Site: Yes; Correct Patient Position: Yes; Correct Supplies: Yes; Dried Flammable Prep: Yes; Blood Products Available: N/A;. Lidocaine 1% infiltrated to the right radial. Arterial access obtained. A 6 citizen [place] TIG catheter in over wire. Multiple views taken of right coronary artery. Catheter redirected to the LCA. Multiple views taken of left coronary artery. Catheter removed over the glide wire. A 5 citizen [place] JL4 catheter in over wire. Wire removed. Multiple views taken of left coronary artery. Catheter removed over the glide wire. 6 [place] XB 3.5 guide catheter was inserted over the wire. Runthrough guidewire was advanced through the guide catheter to lesion in the mid LAD. Inflation number : 1 A AB TREK 2.50X15 RX BALLOON was prepped and advanced across the Dist LAD , then inflated to 8 [place] for 0:21 seconds. Results checked. Balloon out. Inflation Number : 2 A MARTHA R CRISTINA 3.0X18 YARIEL -Lot Number# _[id number] EXP:08/10/2024 was prepped and advanced across the Dist LAD. The stent was deployed at 12 [place] for 0:28 seconds. Stent balloon out over wire. Inflation Number : 3 A MARTHA R CRISTINA 3.0X12 YARIEL -Lot Number# _[id number] EXP: 04/21/2024 was prepped and advanced across the Dist LAD. The stent was deployed at 12 [place] for 0:17 seconds. Stent balloon out over wire. Results checked. Wire out. Guide catheter out. ACT drawn. Results 228 seconds. Therapeutic limits - pre-heparin administration 90-150 seconds and monitoring heparin during a vascular procedure >250 seconds. A TR Band was successful obtaining hemostatsis at the Right Radial artery insertion site. Post Procedure: Pulses reassessed and unchanged. PERRLA. Strong, equal hand supervisor melt house bilaterally. No VTE prophylaxis required. Medication's Wasted: Nitro = 49.8 mg. Medication's Wasted: Other = Hydralazine 10 mg. PCI Indication: NSTE. Post-op diagnosis: Mid-Distal LAD CAD. Complications: None. Estimated blood loss: 5mL-10mL. Responsiveness - Normal response to verbal stimuli; alert and oriented, PERRLA. Airway - Unaffected, no intervention required; spontaneous ventilation. Circulation: W/N/L, pulses unchanged. Nausea/Vomiting: No. Procedure completed. Vital chart was stopped. Patient transferred by bed to ICU. Access Site Site: Right Radial artery Sheath Size: 6 Fr Hemostasis Method: TR Band Hemostasis Success: Successful Procedure Medications Start: 1:03 PM Stop: 1:03 PM Medication: Versed Amount: 1 mg Route: I.V. Start: 1:04 PM Stop: 1:04 PM Medication: Fentanyl Amount: 50 mcg Route: I.V. Start: 1:11 PM Stop: 1:11 PM Medication: Nitrogylcerin Amount: 300 mcg Route: I.A. Start: 1:12 PM Stop: 1:12 PM Medication: Versed Amount: 1 mg Route: I.V. Start: 1:13 PM Stop: 1:13 PM Medication: Heparin Amount: 5000 units Route: I.V. Start: 1:26 PM Stop: 1:26 PM Medication: Hydralazine Amount: 10 mg Route: I.V. Start: 1:27 PM Stop: 1:27 PM Medication: Heparin Amount: 6000 units Route: I.V. Start: 1:38 PM Stop: 1:38 PM Medication: Versed Amount: 1 mg Route: I.V. Start: 1:41 PM Stop: 1:41 PM Medication: Plavix Amount: 300 mg Route: P.O. Start: 1:43 PM Stop: 1:43 PM Medication: Heparin Amount: 2000 units Route: I.V. I, the attending physician, have reviewed and verified all procedure medications. Yes, all medications given per verbal order History/Risk Factors Hypertension: Yes Dyslipidemia: Yes Peripheral Arterial Disease (PAD): No Myocardial Infarction (MO): No Obesity: Yes Renal Disease: No Tobacco Use: Current/Recent(w/in 1 year) Prior Interventions PCI: Yes CABG: No Valve Surgery: No Report Signatures Finalized by Parish Lea MD on 12/04/2021 01:09 PM
[2021-11-23] MEDS: ipratropium-albuterol 3 mL Neb INHALATION ×3 (10:46→19:48)
--- NOTE | 2021-11-23 12:39 | PC.CHAP ---
Pastoral Care Encounter/Spiritual Assessment Type of Contact [] Declined senior information security engineer visit [] Patient/Family/Request visit [] Outpatient visit [] Follow-up visit [] Physician referral [] Code/Alert [x] Routine visit [] Staff referral [] Actively dying [] Patient sleeping [] Family support [] [] Out of room [] Palliative care [] [x] Receiving care in room [] Pre-surgical visit [] Trauma [] Long length of stay [x] ICU visit [] Other: Relational/Emotional Strength [] Patient feels connected with others/family/visitors/staff [] Distress [] Loneliness/isolation [] Abandonment Spirituality of Patient [] Person of Shavonne [] Attends Cheondoism of their Shavonne [] Believes in Prayer [] Reads Bible or Hoahaoism materials [] There are Spiritual issues to be addressed Tie Presser Interventions [x] Prayer [] Active listening [] Non-anxious presence [] Spiritual/emotional support [] Crisis/trauma care [] Spiritual counseling [] Bereavement support [] Provided bereavement packet [] Provided Bible/devotional materials [] Provided toy/stuffed animal, coloring book to patient or family member [] Provided Communion [] Anointing/Juda [] Salvation [x] Completed spiritual assessment [] Other: Impact on Illness or Injury [] Angry [] Fearful [] Anxious [] Often cries [] Exhaustion [] Unable to work [] Unable to attend religious [] Unable to walk/stand [] Unable to read [] Unable to drive [] Unable to eat/drink [] Unable to sleep [] Unable to be with family [] Patient intubated [] Other: Summary Time spent with patient
--- NOTE | 2021-11-23 12:54 | PC.NURSE ---
patient in cardiac cath lab radiology technologist at this time
--- NOTE | 2021-11-23 13:04 | W.PM.OPSUD ---
Surgery/Procedure H&P Update DATE OF PROCEDURE: November 23, 2021 DATE H&P PERFORMED: 11/22/21 H&P UPDATE INFORMATION: I have reviewed H&P completed within last 30 days and I have examined patient prior to procedure PREOP DIAGNOSIS: Unstable angina PRIMARY INDICATION FOR PROCEDURE: Unstable angina PLANNED PROCEDURE: Left heart cath with possible percutaneous coronary intervention PATIENT REASSESSED PRIOR TO SEDATION, WITH NO CHANGE NOTED: Yes PHYSICAL EXAM: alert, oriented x 3, clear to auscultation bilaterally and regular rate & rhythm AIRWAY EVAL/ANESTHESIA PLAN: normal airway, ASA IV, Local Anesthesia, Risks, benefits & alternatives of sedation and/or procedure discussed and Patient agrees to continue as planned ADDITIONAL INFORMATION: Moderate sedation
--- NOTE | 2021-11-23 13:54 | PC.NURSE ---
pharmacy laboratory technician called, 2 stents placed to LAD
--- NOTE | 2021-11-23 14:32 | PC.NURSE ---
back from supervisor laboratory animal facility, TR band intact to R wrist with 17 ml of air
--- NOTE | 2021-11-23 14:59 | PM.PN ---
Subjective Subjective: Patient is feeling well. Underwent coronary angiogram today that showed severe, 95% mid to distal LAD stenosis status post revascularization with YARIEL x2. Vitals/I&O/Wt Last Vital Signs Temp 98.7 F 11/23/21 12:00 Pulse 77 11/23/21 14:30 Resp 18 11/23/21 14:30 BP 169/70 11/23/21 14:30 Pulse Ox 92 11/23/21 14:30 O2 Del Method 11/23/21 12:00 O2 Flow Rate 2 11/23/21 10:35 11/22/21 11/23/21 11/23/21 22:59 06:59 14:59 Intake Total 491.05 / 581.450 299.9 / 881.350 600 / 600 Output Total 1700 / 1700 Balance 491.05 / 581.450 -1400.1 / -818.650 600 / 600 Weight last 48 hrs Weight 270 lb 14.4 oz Weight 260 lb Physical Exam Narrative: GENERAL: Patient is alert, awake and oriented x3. [] NECK: No jugular vein distension. [] HEENT: No cyanosis. No icterus. No pallor. [] HEART: Regular S1 and S2. No murmur, rub or gallop. [] LUNGS: Clear to auscultate bilaterally. [] ABDOMEN: Soft, nontender and nondistended. Positive bowel sounds. No guarding, rebound or tenderness. [] CENTRAL NERVOUS SYSTEM: Grossly nonfocal. [] EXTREMITIES: Lower extremities with 2+ edema bilaterally. Pulses palpable in the lower extremities, both dorsalis pedis and posterior tibial. [] Urinary Catheter Management: Barrso: Cath Placed During This Visit: yes Reason for Continuing Indwelling Catheter: Accurate Measurement of Urinary Output in Critically Ill Patients Urinary Catheter Date of Insertion: 11/22/21 Urinary Catheter Time of Insertion: 12:26 Data : 11/24/21 03:26 11/24/21 03:26 A&P Assessment and plan (1) Chest pain: Status: Acute (2) Hypertensive urgency: Status: Acute (3) Chronic kidney disease: Status: Acute (4) Coronary artery disease: Status: Acute (5) HTN (hypertension): Status: Acute Qualifiers: Hypertension type: unspecified Qualified Code(s): I10 - Essential (primary) hypertension (6) Ischemic cardiomyopathy: Status: Acute (7) Worsening angina: Status: Acute Plan Patient presented with worsening anginal symptoms. Has been taking multiple nitroglycerins. Continue aspirin and Plavix. Patient underwent coronary angiogram today that showed critical mid to distal LAD stenosis and underwent successful revascularization with YARIEL x2. Blood pressure is still elevated. Continue losartan. We will uptitrate Coreg to 12.5 mg twice daily. We will also increase amlodipine to 10 mg daily. Adding hydralazine 25 mg 3 times daily. Continue aggressive diuresis as he is volume overloaded. IV 60 mg twice daily Lasix. Monitor electrolytes and renal function. Thank you for involving us with care of this patient. We will continue to follow. Please call with questions. Attestations Medical Necessity Statement*: Care expected to cross 2 midnights. Coding Level of Care Code Acute Orthopedic Radiologic Technologist for Kathryn Olmstead Diagnoses Chest pain R07.9 Hypertensive urgency I16.0 Chronic kidney disease N18.9 Coronary artery disease I25.10 HTN (hypertension) I10 Hypertension type: unspecified Ischemic cardiomyopathy I25.5 Worsening angina I20.0
[2021-11-23] MEDS: nicotine 21 mg Patch 1 PATCH TRANSDERMA (16:23)
[2021-11-23] MEDS: morphine 4 mg/mL SDV 1 mL 2 MG IVP (16:24)
--- NOTE | 2021-11-23 16:38 | PC.NURSE ---
Cigaretts, lighters and vape sent home with
--- NOTE | 2021-11-23 17:44 | PC.NURSE ---
Patient keeps attempting to get out of bed, not keeping vs leads on, cussing at staff, not being cooperative. PRN morphine given per mar for pain, order for nicotine patch obtained from dr. fierro. patient given coffee and repositioned. staff unable to satisfy patient
[2021-11-23] MEDS: nitroglycerin drip 50 MG/250 ML PREMIX 30 MG IV (17:54)
--- NOTE | 2021-11-23 19:00 | PC.NURSE ---
Pt. laying in bed very anxoius. Pt. states he wants a cigarette badly. I educated patient that it is against hospital policy and would be detrimental to his health. Right radial cath site is clean and clear with no further needs identified at this time.
[2021-11-23] MEDS: budesonide 0.5 mg/2 mL Neb INHALATION (19:48)
[2021-11-23] MEDS: ALPRAZolam 0.5 mg Tablet 0.25 MG PO (20:47)
[2021-11-23] MEDS: nicotine 4 mg lozenge MUCOUS MEM (21:05)
[2021-11-24] VITALS (18 sets, daily range): BP systolic 115–191; BP diastolic 50–124; PULSE 61–82; RESP 14–32; TEMP 36.7–37; O2SAT 80–92
[2021-11-24] MEDS: nitroglycerin drip 50 MG/250 ML PREMIX 30 MG IV (02:43)
[2021-11-24] MEDS: acetaminophen 325 mg Tablet 650 MG PO (03:18)
[2021-11-24 04:15] LABS: Basophils # 0.1 10^3/uL (0.0-0.1); Basophils % 0.4 %; Eosinophils # 0.3 10^3/uL (0.0-0.8); Eosinophils % 2.4 %; Hematocrit 40.9 % (42.0-52.0); Lymphocytes # 0.8 10^3/uL (0.8-4.8); Lymphocytes % 6.7 %; Mean Corpuscular HGB Conc 31.8 g/dL (30.0-36.0); Mean Corpuscular Hemoglobin 29.4 pg (28.0-34.0); Mean Corpuscular Volume 92.5 fl (80-94); Monocytes # 1.4 10^3/uL (0.2-0.9); Monocytes % 11.4 %; Neutrophils # 9.51 10^3/uL (1.8-7.7); Neutrophils % 78.9 %; Nucleated Red Blood Cells % 0 %; Platelet Count 254 10^3/cmm (130-400); Red Blood Count 4.42 10^6/uL (4.1-5.3); Red Cell Distribution Width 17.5 % (12.1-15.1); White Blood Count 12.1 10^3/uL (4.0-10.0)
[2021-11-24 04:42] LABS: Alanine Aminotransferase 8 U/L (0-41); Albumin Level 3.6 g/dL (3.5-5.2); Alkaline Phosphatase 117 U/L (40-130); Anion Gap 13.6 (5-19); Aspartate Amino Transferase 11 U/L (0-40); Blood Urea Nitrogen 11 mg/dL (8-23); Calcium 8.9 mg/dL (8.5-10.5); Carbon Dioxide 31 mmol/L (22-29); Chloride 98 mmol/L (98-107); Globulin 3.2 g/dL (1.3-4.6); Glomerular Filtration Rate 74.5 mL/min (90-130); Glucose 126 mg/dL (65-115); Osmolality Calculated 291 mOsm/kg (285-295); Sodium 140 mmol/L (136-145); Total Bilirubin 0.9 mg/dL (0.15-1.2); Total Protein 6.8 g/dL (6.6-8.7)
[2021-11-24] MEDS: ALPRAZolam 0.5 mg Tablet 0.25 MG PO (05:00)
[2021-11-24] MEDS: nicotine 4 mg lozenge MUCOUS MEM (05:01)
[2021-11-24 05:04] LABS: Potassium 2.6 mmol/L (3.5-5.1)
[2021-11-24] MEDS: lidocaine 1% 5 ML in potassium chloride premix 100 ML 25 ML IV ×2 (05:30→09:55)
--- NOTE | 2021-11-24 07:52 | PM.PN ---
Subjective Subjective: Patient is doing well. Denies any more chest pain. Had undergone PCI of LAD with YARIEL X2. Vitals/I&O/Wt Last Vital Signs Temp 98.0 F 11/24/21 05:30 Pulse 66 11/24/21 05:39 Resp 29 H 11/24/21 05:30 BP 162/91 11/24/21 05:30 Pulse Ox 87 L 11/24/21 05:30 O2 Del Method 11/23/21 19:50 O2 Flow Rate 2 11/23/21 10:35 11/23/21 11/24/21 11/24/21 22:59 06:59 14:59 Intake Total 150 / 800.1 250 / 1050.1 Output Total 2500 / 2500 3350 / 5850 Balance -2350 / -1699.9 -3100 / -4799.9 Weight last 48 hrs Weight 260 lb Weight 270 lb 14.4 oz Physical Exam Narrative: GENERAL: Patient is alert, awake and oriented x3. [] NECK: No jugular vein distension. [] HEENT: No cyanosis. No icterus. No pallor. [] HEART: Regular S1 and S2. No murmur, rub or gallop. [] LUNGS: Clear to auscultate bilaterally. [] ABDOMEN: Soft, nontender and nondistended. Positive bowel sounds. No guarding, rebound or tenderness. [] CENTRAL NERVOUS SYSTEM: Grossly nonfocal. [] EXTREMITIES: Lower extremities with 2+ edema bilaterally. Pulses palpable in the lower extremities, both dorsalis pedis and posterior tibial. [] Urinary Catheter Management: Barros: Cath Placed During This Visit: yes Reason for Continuing Indwelling Catheter: Accurate Measurement of Urinary Output in Critically Ill Patients Urinary Catheter Date of Insertion: 11/22/21 Urinary Catheter Time of Insertion: 12:26 Data : 11/24/21 03:26 11/24/21 03:26 A&P Assessment and plan (1) Chest pain: Status: Acute (2) Hypertensive urgency: Status: Acute (3) Chronic kidney disease: Status: Acute (4) Coronary artery disease: Status: Acute (5) HTN (hypertension): Status: Acute Qualifiers: Hypertension type: unspecified Qualified Code(s): I10 - Essential (primary) hypertension (6) Ischemic cardiomyopathy: Status: Acute (7) Worsening angina: Status: Acute Plan Patient presented with worsening anginal symptoms. Has been taking multiple nitroglycerins. Continue aspirin and Plavix. Patient underwent coronary angiogram today that showed critical mid to distal LAD stenosis and underwent successful revascularization with YARIEL x2. Blood pressure still uncontrolled. Blood pressure medications have been uptitrated. Wean off nitro gtt. Continue aggressive diuresis as he is volume overloaded. IV 60 mg twice daily Lasix. Potassium is low. Will need replacement Thank you for involving us with care of this patient. Our recommendation is to continue inpatient stay for continued diuresis and blood pressure control. However patient says he can not stay in the hospital. Will defer decision to primary team. Please call with questions. Attestations Medical Necessity Statement*: Care expected to cross 2 midnights. Coding Level of Care Code Acute Swing Manager for Kathryn Olmstead Diagnoses Chest pain R07.9 Hypertensive urgency I16.0 Chronic kidney disease N18.9 Coronary artery disease I25.10 HTN (hypertension) I10 Hypertension type: unspecified Ischemic cardiomyopathy I25.5 Worsening angina I20.0
[2021-11-24] MEDS: hyDRALAzine 25 mg Tablet PO (08:33)
[2021-11-24] MEDS: aspirin 325 mg Tablet PO (08:33)
[2021-11-24] MEDS: losartan 50 mg Tablet 100 MG PO (08:33)
[2021-11-24] MEDS: pantoprazole DR 40 mg Tablet PO (08:33)
[2021-11-24] MEDS: clopidogrel 75 mg Tablet PO (08:33)
[2021-11-24] MEDS: carvedilol 6.25 mg Tablet 12.5 MG PO (08:34)
[2021-11-24] MEDS: enoxaparin 40 mg/0.4 mL Syringe SUBCUT (08:35)
[2021-11-24] MEDS: nicotine 21 mg Patch 1 PATCH TRANSDERMA (08:35)
[2021-11-24] MEDS: amlodipine 5 mg Tablet 10 MG PO (08:35)
[2021-11-24] MEDS: FUROsemide 10 mg/mL SDV 4mL 60 MG IVP (09:56)
--- NOTE | 2021-11-24 13:58 | PC.NURSE ---
Pt being discharged Pt has been confused all morning and has been adamant that he is leaving at [address] Rome was notified of pt's behavior and confusion. Both Dr. Rome and Leonora had agreed to keep pt one more day but patient is not willing to stay. Dr. Rome was also notified that patient is very weak and warehouse worker 2nd shift nurse was unable to transfer patient to bedside commode last night due to patient's weakness. Dr. Rome put in orders for PT. Patient's life partner/girlfriend of 20 years and their son arrived at hospital around 1 because patient had contacted her on his cell phone and told her he was being discharged. After arriving here and speaking with her she indicates that this is his baseline at home and he can be quite difficult and even gets violent at times at home. Dr. Rome was notified of this and spoke with patient's girlfriend on the phone. She indicated that they spoke about ensuring he takes his medication as prescribed and the possibility of gaurdianship because the patient is not capable of taking care of himself sufficiently and about the possibility of marine oil terminal superintendent placement. She stated that he just wants to live out his life at home and be able to smoke but it is becoming increasing difficult for her to take care of him. Discharge orders are in and patient pulled out his own IV. Barros was removed by nurse. Physical therapy helped patient to his own wheelchair and patient is very weak and required total assistance. Discharge instructions given to patient with his girlfriend present and given instructions as well. Their son is also present at this time. Patient was helped into private vehicle by PT and patient's own son with much difficulty.
--- NOTE | 2021-11-24 22:00 | P.DS_ITS ---
Discharge Providers Date of Admission: 11/22/21 11:44 Date of Discharge: November 24, 2021 Attending Provider at Admission: Julian Murray MD Attending Provider at Discharge: David Rome Primary Care Provider: Kylie Vogel Diagnoses at Discharge Discharge Diagnosis (1) Chest pain: Status: Acute (2) Hypertensive urgency: Status: Acute (3) Chronic kidney disease: Status: Acute (4) Coronary artery disease: Status: Acute (5) HTN (hypertension): Status: Acute Qualifiers: Hypertension type: unspecified Qualified Code(s): I10 - Essential (primary) hypertension (6) Ischemic cardiomyopathy: Status: Acute (7) Worsening angina: Status: Acute Reason for Visit Reason for Visit: chest pain Hospital Course Hospital Course Pleasant 66-year gentleman was admitted after presenting with chest discomfort, shortness of breath, hypertensive urgency, he was assessed with regards to chest pain with troponin EKG CBC, troponin without significant delta with mild elevation, he received aspirin, beta-blockers, statin, was restarted on Plavix. Was diuresed with IV Lasix with good response and reported resolution of dyspnea symptoms. Antihypertensive medications additionally optimized during hospitalization, although did require nitroglycerin drip to bring blood pressures down. Echocardiogram technically very limited, grossly LV systolic function appearing severely reduced, R WMA unable to be assessed. He was assessed by cardiology, underwent coronary angiography with finding of significant stenosis of LAD treated with YARIEL x2. Continues on aspirin and Plavix among other cardiac medications. Blood pressure medications further uptitrated with addition of amlodipine, hydralazine, continue losartan, increased dose and carvedilol. He is forgetful. With concern for compliance discussed need for compliance with his medications, particularly antiplatelets, with him and with his life partner. His life partner states that she has been preparing his medications into a pillbox, but he had been forgetting his medications in the past. She states that she will now be making sure that he takes them as much as he will cooperate. Unfortunately his forgetfulness may lead to worse prognosis long- term is discussed with her. He reported feeling much better with resolution of his symptoms, improvement in edema, weaned off nitroglycerin drip with improvement in blood pressures. Further stay for optimization was recommended to him by cardiology, however, he adamantly requested about discharge to leave by 1:00, and when the time came he pulled out his IV and was about to start removing his Barros by himself if he was not released, getting ready to leave stating he had things he needed to take care of at home. Physical Exam Const: COMMON NORMALS: patient oriented x3 and alert GENERAL APPEARANCE: cooperative ORIENTATION/CONSCIOUSNESS: Yes awake HENMT: COMMON NORMALS: oropharynx normal Neck/C-Spine: COMMON NORMALS: no JVD Resp: COMMON NORMALS: normal respiratory effort and clear to auscultation bilaterally AUSCULTATION: clear to auscultation bilaterally Cardio: COMMON NORMALS: no JVD, regular rhythm, S1 normal heart sound present, S2 normal heart sound present and No murmurs present (Cardio) RHYTHM: regular rhythm HEART SOUNDS: S1 normal heart sound present and S2 normal heart sound present GI: COMMON NORMALS: Normal to inspection, nondistended, normoactive bowel sounds present, Soft to palpation and non-tender PALPATION: Yes Soft to palpation Extremity: COMMON NORMALS: no joint enlargement GENERAL: Yes edema (Trace) OTHER: Access site appears without any bruising or bleeding, no pulsatile mass. Neuro: COMMON NORMALS: patient oriented x3 and moves all extremities SENSORIUM/ORIENTATION: Yes alert Skin: COMMON NORMALS: no rashes or lesions noted GENERAL SKIN EXAM: no rashes or lesions noted OTHER: Chronic venous stasis bilateral LE with advanced hemosiderosis Urinary Catheter Management: Barros: Cath Placed During This Visit: yes Reason for Continuing Indwelling Catheter: Accurate Measurement of Urinary Output in Critically Ill Patients Urinary Catheter Date of Insertion: 11/22/21 Urinary Catheter Time of Insertion: 12:26 Discharge Data Studies Completed and Pending Completed Studies During Hospitalization Category Date Time Status XR chest 1V portable [id number] Stat Exams 11/22/21 06:35 Completed CV. echo limited [id number] Routine Ultrasound 11/22/21 11:44 Completed Pending at discharge Category Date Time Status IMMIGRATION PATROL INSPECTOR request for service Routine Exams 11/23/21 09:46 Taken Radiology Impressions Chest X-Ray 11/22/21 06:35 IMPRESSION: 1. Prominent cardiomegaly persistent. 2. Pulmonary venous congestion and suspected low-grade interstitial edema. Laboratory Results WBC 12.1 10^3/uL (4.0-10.0) H 11/24/21 03:26 RBC 4.42 10^6/uL (4.1-5.3) 11/24/21 03:26 Hgb 13.0 g/dL (11.7-16.6) 11/24/21 03:26 Hct 40.9 % (42.0-52.0) L 11/24/21 03:26 MCV 92.5 fl (80-94) 11/24/21 03:26 MCH 29.4 pg (28.0-34.0) 11/24/21 03:26 MCHC 31.8 g/dL (30.0-36.0) 11/24/21 03:26 RDW 17.5 % (12.1-15.1) H 11/24/21 03:26 Plt Count 254 10^3/cmm (130-400) 11/24/21 03:26 MPV 10.0 fL (7.4-10.4) 11/24/21 03:26 Neut % (Auto) 78.9 % 11/24/21 03:26 Lymph % (Auto) 6.7 % 11/24/21 03:26 [place] % (Auto) 11.4 % 11/24/21 03:26 Eos % (Auto) 2.4 % 11/24/21 03:26 Baso % (Auto) 0.4 % 11/24/21 03:26 Neut # (Auto) 9.51 10^3/uL (1.8-7.7) H 11/24/21 03:26 Lymph # (Auto) 0.8 10^3/uL (0.8-4.8) 11/24/21 03:26 [place] # (Auto) 1.4 10^3/uL (0.2-0.9) H 11/24/21 03:26 Eos # (Auto) 0.3 10^3/uL (0.0-0.8) 11/24/21 03:26 Baso # (Auto) 0.1 10^3/uL (0.0-0.1) 11/24/21 03:26 Nucleated RBC % (auto) 0 % 11/24/21 03:26 Nucleated RBCs # 0.0 /100WBC 11/24/21 03:26 Sodium 140 mmol/L (136-145) 11/24/21 03:26 Potassium 2.6 mmol/L (3.5-5.1) L* 11/24/21 03:26 Chloride 98 mmol/L (98-107) 11/24/21 03:26 Carbon Dioxide 31 mmol/L (22-29) H 11/24/21 03:26 Anion Gap 13.6 (5-19) 11/24/21 03:26 BUN 11 mg/dL (8-23) 11/24/21 03:26 Creatinine 1.0 mg/dL (0.7-1.2) 11/24/21 03:26 GFR Calculation 74.5 mL/min (90-130) L 11/24/21 03:26 Glucose 126 mg/dL (65-115) H 11/24/21 03:26 Calculated Osmolality 291 mOsm/kg (285-295) 11/24/21 03:26 Calcium 8.9 mg/dL (8.5-10.5) 11/24/21 03:26 Magnesium 2.0 mg/dL (1.7-2.3) 11/24/21 03:26 Total Bilirubin 0.9 mg/dL (0.15-1.2) 11/24/21 03:26 AST 11 U/L (0-40) 11/24/21 03:26 ALT 8 U/L (0-41) 11/24/21 03:26 Alkaline Phosphatase 117 U/L (40-130) 11/24/21 03:26 Creatine Kinase 37 U/L (39-308) L 11/22/21 06:28 Troponin T Baseline 41 ng/L (0-15) H 11/22/21 06:28 Troponin T 120 Minute 36.55 ng/L (0-15) H 11/22/21 08:20 Delta Troponin T -4.45 ABS# (0-10) L 11/22/21 08:20 Troponin T Hi Sens 6Hr 37.30 ng/L (0-15) H 11/22/21 12:10 Troponin T Hi Sens 6Hr Delta -3.70 ng/L (0-12) L 11/22/21 12:10 Total Protein 6.8 g/dL (6.6-8.7) 11/24/21 03:26 Albumin 3.6 g/dL (3.5-5.2) 11/24/21 03:26 Globulin 3.2 g/dL (1.3-4.6) 11/24/21 03:26 Lipase 23 U/L (13-60) 11/22/21 06:28 TSH 1.36 uIU/mL (0.27-4.20) 11/22/21 06:28 Urine Color Straw (Yellow) 11/22/21 11:25 Urine Appearance Clear (CLEAR) 11/22/21 11:25 Urine pH 7 (5-7) 11/22/21 11:25 Ur Specific [place] 1.005 (1.005-1.030) 11/22/21 11:25 Urine Protein Neg (Negative) 11/22/21 11:25 Urine Glucose (UA) Norm (Normal) 11/22/21 11:25 Urine Ketones Negative (Negative) 11/22/21 11:25 Urine Blood Neg (Negative) 11/22/21 11:25 Urine Nitrate Negative (Negative) 11/22/21 11:25 Urine Bilirubin Neg (Negative) 11/22/21 11:25 Urine Urobilinogen Norm mg/dL (Negative) 11/22/21 11:25 Ur Leukocyte Esterase Negative (Negative) 11/22/21 11:25 Urine RBC Rare /hpf (0-2) 11/22/21 11:25 Urine WBC Rare /hpf (0-5) 11/22/21 11:25 Ur Squamous Epith Cells Rare /hpf (0-5) 11/22/21 11:25 Amorphous Sediment Not Reportable 11/22/21 11:25 Urine Bacteria Trace /hpf (NONE) 11/22/21 11:25 Vitals Last Vital Signs Temp 98.6 F 11/24/21 08:00 Pulse 61 11/24/21 12:00 Resp 20 H 11/24/21 12:00 BP 115/58 11/24/21 12:00 Pulse Ox 89 L 11/24/21 12:00 O2 Del Method 11/24/21 12:00 O2 Flow Rate 2 11/23/21 10:35 Discharge Plan Discharge Patient Disposition: Home Condition: Fair Prescriptions: New carvedilol 6.25 mg Tablet 12.5 mg PO BID@0900,2100 Qty: 180 0RF hydralazine 25 mg Tablet 25 mg PO TID Qty: 270 0RF nicotine 21 mg/24 hr Patch 24 Hour 1 patch transdermal DAILY Qty: 90 0RF amlodipine 5 mg Tablet 10 mg PO DAILY Qty: 90 0RF aspirin 81 mg tablet,chewable 81 mg PO DAILY Qty: 90 0RF Continued nitroglycerin 0.4 mg tablet, sublingual 0.4 mg SUBLINGUAL Q5M PRN (Reason: chest pain) Qty: 30 4RF Rx Instructions: until response; do not exceed 3 doses per episode furosemide 40 mg tablet 40 mg PO BID potassium chloride 10 mEq tablet extended release 10 meq PO QPM losartan 100 mg tablet 100 mg PO QAM atorvastatin 40 mg tablet 40 mg PO QPM Changed clopidogrel 75 mg tablet 75 mg PO QAM Qty: 90 0RF Discontinued carvedilol 6.25 mg tablet 6.25 mg PO BID Qty: 60 0RF aspirin 325 mg Tablet 325 mg PO BID Discharge Orders: Discharge Order (Routine); Ordered 11/24/21 Ordered By: David Rome Referrals: Kylie Vogel [Primary Care Provider] - 4-7 days Sully Chaney FNP [Nurse Practitioner] - 1 week Discharge Diet: Cardiac Patient Instructions: Aspirin (By mouth), Nicotine (Absorbed through the skin) (Nicoderm CQ, Nicoderm CQ..., Hydralazine (By mouth), Amlodipine (By mouth), Carvedilol (By mouth), Clopidogrel (By mouth), Coronary Angioplasty (DC), Carotid Artery Stent Placement (GEN) Activity Restrictions/Additional Instructions: Please make sure to take your medications especially Plavix and aspirin, oth erwise the stent may clot off and you may suffer a major heart attack resulting in disability or . Please make sure to continue to take your medications for hypertension as well as diuretic for congestive heart failure. Please monitor blood pressures twice a day, record values to bring to your appointment. You are started on additional blood pressure medications to help with control, carvedilol dose is increased to 12.5. You are started additionally on hydralazine, amlodipine. Please do not lift anything heavier than 2 pounds for 3 days. In case you experience any pulsatile mass, bleeding from right wrist, seek medical attention. Please follow-up with cardiology in office. Please stop smoking. Discharge Attestations Time Spent in Discharge Care*: greater than 30 min Quality Metrics Clinical Quality Measures [ Acute Myocardial Infaction { Clinical Trial Participant: No; Contraindication to aspirin: None; Aspirin prescribed; Contraindication to statin: None; Statin prescribed; Contraindication to PCI: None; PCI performed;}] Coding Level of Care Code Acute [facility] note Diagnoses Chest pain R07.9 Hypertensive urgency I16.0 Chronic kidney disease N18.9 Coronary artery disease I25.10 HTN (hypertension) I10 Hypertension type: unspecified Ischemic cardiomyopathy I25.5 Worsening angina I20.0
== END 2021-11-24 14:30 | disposition home or self-care (01) | DRG 246 ==
LOC: ER 06:43 → ICU 11-23 05:19
PROVIDERS: Internal Medicine; Admitting Provider Internal Medicine; Emergency Provider Family Medicine; PCP Registered Nurse; Visit Provider Internal Medicine
PROC: 027035Z Dilation of Coronary Artery, One Artery with Two Drug-eluting Intraluminal Devices, Percutaneous Approach (ICD-10-PCS; principal; 2021-11-23 13:00)
PROC: 027035Z Dilation of Coronary Artery, One Artery with Two Drug-eluting Intraluminal Devices, Percutaneous Approach (ICD-10-PCS; 2021-11-23 13:00)
DX: I25.119 Atherosclerotic heart disease of native coronary artery with unspecified angina pectoris (principal); I50.23 Acute on chronic systolic (congestive) heart failure; I13.0 Hypertensive heart and chronic kidney disease with heart failure and stage 1 through stage 4 chronic kidney disease, or unspecified chronic kidney disease; I16.0 Hypertensive urgency; Z91.14 Patient's other noncompliance with medication regimen; N18.9 Chronic kidney disease, unspecified; I25.2 Old myocardial infarction; E78.5 Hyperlipidemia, unspecified; I25.5 Ischemic cardiomyopathy; G35 Multiple sclerosis; F17.210 Nicotine dependence, cigarettes, uncomplicated
CPT/HCPCS: 36415; 51702; 71045; 80053; 81001; 82550; 83690; 83735; 84443; 84484; 85025; 85347; 93005; 93308; 93454; 94640; 96360; 96365; 96366; 96372; 96375; 96376; 97161; 97530; 99152; 99153; 99291; C1769; C1874; C1887; C1894; C9600; J0360; J1644; J1650; J1940; J2250; J2270; J3010; J3480; J3490; J7626; Q9967

== ENCOUNTER → 2022-01-23 08:30 | Day surgery (SDC) | payer MEDICARE, SELFPAY ==
[2022-01-21 13:01] VITALS: BMI 36.2
[2022-01-23 08:47] VITALS: BP 146/88; PULSE 71; RESP 18; TEMP 36.4; O2SAT 94
[2022-01-23] MEDS: sodium chloride 0.9% 1,000 ML 30 ML IV (09:32)
--- NOTE | 2022-01-23 09:40 | P.HP_ITS ---
Providers/Chief Complaint Primary Care Provider: Kylie Vogel Chief Complaint: Z12.11 Screening History of Present Illness Armando Coleman is a 66 year old male here for colonoscopy Medications/Allergies Home Medications Medication Instructions Recorded Confirmed Last Taken Type nitroglycerin 0.4 mg sublingual 0.4 mg sublingual Q5M PRN chest 04/27/1901/0511/21/21 Rx tablet pain #30 tabs 20 tabs per pt & wif atorvastatin 40 mg tablet 40 mg PO QPM 11/22/21 01/23/22 01/21/22 History losartan 100 mg tablet 100 mg PO QAM 11/22/21 01/23/22 01/21/22 History amlodipine 5 mg tablet 10 mg PO DAILY #90 tabs 11/24/21 01/23/22 01/21/22 Rx carvedilol 6.25 mg tablet 12.5 mg PO BID@0900,2100 #180 tabs 11/24/21 01/23/22 01/21/22 Rx clopidogrel 75 mg tablet 75 mg PO QAM #90 tabs 11/24/21 01/23/22 01/21/22 Rx Allergies Allergy/AdvReac Type Severity Reaction Status Date / Time No Known Allergies Allergy Verified 01/23/22 08:44 PFSH Acute PFSH: Medical History CHF (congestive heart failure) Chronic kidney disease History of non-ST elevation myocardial infarction (NSTEMI) HTN (hypertension) Hyperlipidemia Ischemic cardiomyopathy Lacunar infarction Multiple sclerosis Multiple sclerosis Multiple sclerosis Tobacco dependency Troponin level elevated Urinary retention Surgical History History of esophagogastroduodenoscopy (EGD) Hx of colonoscopy with polypectomy Hx of heart artery stent stents x 2017- unknown vessels Family History Sister Heart disease Hypertension Myocardial infarction Mother Cancer Daughter Myocardial infarction Social History Smoking and tobacco status: current every day smoker cigarettes Packs smoked per day: 0.5 [ Other cigarette details: Cutting down] Alcohol intake: never Adopted: No Caregiver/support person: No Lives independently: No Marital status: Single Vitals/I&O/Wt Last Vital Signs Temp 97.5 F L 01/23/22 08:47 Pulse 71 01/23/22 08:47 Resp 18 01/23/22 08:47 BP 146/88 01/23/22 08:47 Pulse Ox 94 01/23/22 08:47 O2 Del Method 01/23/22 08:47 Weight last 48 hrs Weight 260 lb A&P Assessment and plan (1) History of colon polyps: Plan Colonoscopy Attestations Medical Necessity Statement*: Home Coding Level of Care Code Acute Medical Lab Director for Chg Fwd Diagnoses History of colon polyps Z86.010
--- NOTE | 2022-01-23 10:31 | P.PN_ITS ---
Subjective Subjective: Upon interviewing patient it was identified to have recent heart stents (8weeks prior) and has stopped plavix 2 days prior. Loading dose of Plavix and ASA ordered after discussion with hydrometer finisher Dr. Jennings. Colonoscopy rescheduled. Vitals/I&O/Wt Last Vital Signs Temp 97.5 F L 01/23/22 08:47 Pulse 71 01/23/22 08:47 Resp 18 01/23/22 08:47 BP 146/88 01/23/22 08:47 Pulse Ox 94 01/23/22 08:47 O2 Del Method 01/23/22 08:47 Weight last 48 hrs Weight 117.934 kg Attestations Medical Necessity Statement*: Patient will be discharged. Coding Level of Care Code Acute Fork Truck Operator for Kathryn Olmstead
--- NOTE | 2022-01-23 10:33 | PC.NURSE ---
Pt procedure canceled by anesthesia due to it not being long enough after stent placement. I spoke to Dr Lea and he spoke to GIDEON Regan and the decision was made along with Dr Valenzuela to cancel the procedure. A loading dose of Plavix 600mg along with Aspirin 325mg was ordered and given to patient. The patient was then discharged.
[2022-01-23] MEDS: clopidogrel 300 mg Tablet 600 MG PO (10:36)
[2022-01-23] MEDS: aspirin 325 mg Tablet PO (10:36)
== END ==
PROVIDERS: PCP Registered Nurse; Visit Provider Surgery
PROC: 0DJD8ZZ Inspection of Lower Intestinal Tract, Via Natural or Artificial Opening Endoscopic (ICD-10-PCS; CPT 45378; principal; 2022-01-23 10:00)
DX: Z12.11 Encounter for screening for malignant neoplasm of colon (principal); Z53.8 Procedure and treatment not carried out for other reasons
CPT/HCPCS: J2704; J7030

== ENCOUNTER 2022-04-27 13:11 | Inpatient (IN) | payer MEDICARE, SELFPAY ==
[2022-04-27] VITALS (39 sets, daily range): BP systolic 116–224; BP diastolic 57–154; PULSE 46–77; RESP 12–22; TEMP 35.8; O2SAT 87–100; BMI 32.8; BMI 41.5
--- NOTE | 2022-04-27 13:24 | XRR_ITS ---
PROCEDURE INFORMATION: Exam: XR Chest Exam date and time: 04/27/2022 1:41 PM Age: 67 years old Clinical indication: Shortness of breath and other: AMS TECHNIQUE: Imaging protocol: Radiologic exam of the chest. Views: 1 view. COMPARISON: CR (CHEST, ) 11/22/2021 6:49 AM FINDINGS: Lungs: Hyperinflation and interstitial prominence. Pleural spaces: Mild pleural thickening, without dependent pleural effusion. Heart/Mediastinum: Cardiomegaly. Bones/joints: Osteopenia. XR/XR chest 1V portable [id number] IMPRESSION: 1. Cardiomegaly. 2. Hyperinflation and interstitial prominence.
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
--- NOTE | 2022-04-27 13:35 | ECG_ITS ---
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 Measurements Intervals [place] Rate: 78 P: 0 MS: 0 QRS: 122 QRSD: 186 T: 14 QT: 474 QTc: 542 Interpretive Statements SINUS RHYTHM WITH VENTRICULAR PREMATURE COMPLEXES RIGHT BUNDLE BRANCH BLOCK [120+ ms QRS DURATION, UPRIGHT V1, 40+ ms S IN I/aVL/V4/V5/V6] LEFT POSTERIOR FASCICULAR BLOCK [QRS AXIS > 109, INFERIOR Q] Compared to ECG 11/22/2021 13:23:16 Ventricular premature complex(es) now present Aberrant conduction of supraventricular beat(s) now present Left posterior fascicular block now present Sinus bradycardia no longer present First degree AV block no longer present Right-axis deviation no longer present T-wave abnormality no longer present Possible ischemia no longer present Electronically Signed On 04-30-2022 7:47:15 MESSAGE AND DELIVERY SERVICE PRICER by Parish Lea M.D. [id number]
--- NOTE | 2022-04-27 13:45 | CTR_ITS ---
PROCEDURE INFORMATION: Exam: CT Head Without Contrast Exam date and time: 04/27/2022 2:34 PM Age: 67 years old Clinical indication: Injury or trauma; Fall; Blunt trauma (contusions or hematomas); Additional info: Fall on thinners TECHNIQUE: Imaging protocol: Computed tomography of the head without contrast. Radiation optimization: All CT scans at this facility use at least one of these dose optimization techniques: automated exposure control; mA and/or kV adjustment per patient size (includes targeted exams where dose is matched to clinical indication); or iterative reconstruction. COMPARISON: No relevant prior studies available. RADIATION DOSE METRICS: Total DLP (mGy-cm): 1197.84 FINDINGS: Brain: No acute post-traumatic brain injury. Symmetric enlargement of the cortical sulci. Multifocal small-vessel ischemic change including basal ganglia and thalamic lacunar infarcts. Additional small chronic ischemic infarct in the left posterior cerebellum. Vascular and dural calcifications. Cerebral ventricles: Normal configuration of the ventricles. Paranasal sinuses: Trace left maxillary sinus fluid along with ethmoid sinus mucoperiosteal disease. Mastoid air cells: A few opacified left mastoid air cells. Bones/joints: No acute calvarial injury. Soft tissues: Small left occipital scalp hematoma. Bilateral periorbital soft tissue swelling and orbital preseptal hematomas. CT/CT head wo con* [id number] IMPRESSION: 1. No acute post-traumatic brain injury. 2. Bilateral periorbital soft tissue swelling and orbital preseptal hematomas. 3. Additional findings as described above.
--- NOTE | 2022-04-27 13:45 | CTR_ITS ---
PROCEDURE INFORMATION: Exam: CT Cervical Spine Without Contrast Exam date and time: 04/27/2022 2:34 PM Age: 67 years old Clinical indication: Injury or trauma; Fall; Blunt trauma TECHNIQUE: Imaging protocol: Computed tomography of the cervical spine without contrast. Radiation optimization: All CT scans at this facility use at least one of these dose optimization techniques: automated exposure control; mA and/or kV adjustment per patient size (includes targeted exams where dose is matched to clinical indication); or iterative reconstruction. COMPARISON: None RADIATION DOSE METRICS: Total DLP (mGy-cm): 357.7 FINDINGS: Bones/joints: Evaluation is limited by motion artifact. While no gross evidence for acute bony injury is identified in the visualized cervical spine, repeat CT following patient sedation is recommended for definitive evaluation, given the history of trauma. Multilevel degenerative change. Lungs: Biapical emphysematous change, interstitial prominence, and airspace disease. Soft tissues: Ligamentous calcification. CT/CT cervical spin wo con* [id number] IMPRESSION: 1. Evaluation is limited by motion artifact. 2. While no gross evidence for acute bony injury is identified in the visualized cervical spine, repeat CT following patient sedation is recommended for definitive evaluation given the history of trauma.
[2022-04-27 13:58] LABS: Basophils # 0.1 10^3/uL (0.0-0.1); Basophils % 0.4 %; Eosinophils # 0.1 10^3/uL (0.0-0.8); Eosinophils % 0.4 %; Hematocrit 48.2 % (42.0-52.0); Hemoglobin 14.8 g/dL (11.7-16.6); Lymphocytes # 0.9 10^3/uL (0.8-4.8); Lymphocytes % 5.5 %; Mean Corpuscular HGB Conc 30.7 g/dL (30.0-36.0); Mean Corpuscular Hemoglobin 27.4 pg (28.0-34.0); Mean Corpuscular Volume 89.1 fl (80-94); Mean Platelet Volume 10.6 fL (7.4-10.4); Monocytes # 1.2 10^3/uL (0.2-0.9); Monocytes % 7.4 %; Neutrophils # 14.41 10^3/uL (1.8-7.7); Neutrophils % 85.9 %; Nucleated Red Blood Cells % 0 %; Platelet Count 272 10^3/cmm (130-400); Red Blood Count 5.41 10^6/uL (4.1-5.3); White Blood Count 16.8 10^3/uL (4.0-10.0)
[2022-04-27 14:13] LABS: Ammonia 19 umol/L (16-60)
[2022-04-27 14:16] LABS: INR 1.28 (0.8-1.2)
[2022-04-27 14:24] LABS: Lactic Sepsis W/Reflex 3.2 mmol/L (0.5-2.2)
[2022-04-27 14:25] LABS: Alanine Aminotransferase 22 U/L (0-41); Albumin Level 3.4 g/dL (3.5-5.2); Alkaline Phosphatase 145 U/L (40-130); Anion Gap 17.1 (5-19); Aspartate Amino Transferase 32 U/L (0-40); Blood Urea Nitrogen 24 mg/dL (8-23); Calcium 9.3 mg/dL (8.5-10.5); Carbon Dioxide 28 mmol/L (22-29); Chloride 94 mmol/L (98-107); Globulin 4.1 g/dL (1.3-4.6); Glomerular Filtration Rate 54.9 mL/min (90-130); Glucose 135 mg/dL (65-115); Lipase 12 U/L (13-60); Magnesium 2.5 mg/dL (1.7-2.3); Osmolality Calculated 286 mOsm/kg (285-295); Potassium 4.1 mmol/L (3.5-5.1); Sodium 135 mmol/L (136-145); Total Bilirubin 0.9 mg/dL (0.15-1.2); Total Protein 7.5 g/dL (6.6-8.7)
[2022-04-27 14:26] LABS: Troponin(5th) Baseline 58 ng/L (0-15)
[2022-04-27 14:43] LABS: Creatine Phosphokinase 660 U/L (39-308)
[2022-04-27 15:00] LABS: Amphetamines Screen Urine Negative (Negative); Barbiturates Screen Urine Negative (Negative); Benzodiazepines Screen Urine Negative (Negative); Cocaine Screen Urine Negative (Negative); Opiate Screen Urine Negative (Negative); PCP Screen Urine Negative (Negative); THC Screen Urine Negative (Negative)
[2022-04-27 15:04] LABS: Add Urine Microscopic? YES; Bilirubin Urine 1+ (Negative); Blood Urine 3+ (Negative); Glucose Urine UA Norm (Normal); Ketones Urine 1+ (Negative); Leukocyte Esterase Urine 1+ (Negative); Nitrate Urine Negative (Negative); Protein Urine 3+ (Negative); Specific Gravity, Urine 1.025 (1.005-1.030); Urine Appearance SL Hazy (CLEAR); Urine Color Dark Yellow (Yellow); Urobilinogen Urine 1 mg/dL (Negative); pH Urine 5 (5-7)
[2022-04-27 15:05] LABS: Add Urine Culture? Yes; Bacteria Urine 3+ /hpf; WBC Urine 25-40 /hpf (0-5)
[2022-04-27 15:06] LABS: ABG PCO2 46.4 mmHg (35-45); ABG PH Result 7.39 (7.35-7.45); Arterial Blood Gas Hematocrit 46.2 % (42-52); Base Excess ABG 2.7 mmol/L (-2.0-2.0); Blood Gas Allen Test Pos; Blood Gas LPM 2.5 %; Blood Gas Operator Identificat CAK; Blood Gas Sample Site Radial, left; Blood Gas Sample Type Arterial; HCO3 ABG 28.3 mmol/L (22-26); Oxygen Device NC; PO2 ABG 66.7 mmHg (80.0-100.0)
--- NOTE | 2022-04-27 15:32 | ECG_ITS ---
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 Measurements Intervals [place] Rate: 72 P: 54 DC: 216 QRS: 117 QRSD: 188 T: 2 QT: 495 QTc: 545 Interpretive Statements SINUS RHYTHM WITH FIRST DEGREE AV BLOCK RIGHT BUNDLE BRANCH BLOCK [120+ ms QRS DURATION, UPRIGHT V1, 40+ ms S IN I/aVL/V4/V5/V6] LEFT POSTERIOR FASCICULAR BLOCK [QRS AXIS > 109, INFERIOR Q] Compared to ECG 04/27/2022 13:35:29 First degree AV block now present Atrial fibrillation no longer present Ventricular premature complex(es) no longer present Aberrant conduction of supraventricular beat(s) no longer present Electronically Signed On 04-28-2022 9:20:21 DIRECTOR OF CAREER SERVICES by Marylin Valenzuela M.D. [id number]
[2022-04-27 15:34] LABS: Reflex Lactate Order REFLEX LACTIC ORDERD
[2022-04-27 15:58] LABS: NT Pro B Type Natriuretic Pept 18088 pg/mL (0-125)
[2022-04-27] MEDS: FUROsemide 10 mg/mL SDV 4mL 40 MG IVP ×2 (17:01→18:09)
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
--- NOTE | 2022-04-27 17:27 | CTR_ITS ---
PROCEDURE INFORMATION: Exam: CT Chest Without Contrast; Diagnostic Exam date and time: 04/27/2022 7:05 PM Age: 67 years old Clinical indication: Injury or trauma; Abdominal wall; Other: Sepsis, falls, AMS; Blunt trauma (contusions or hematomas); Prior surgery; Surgery date: 6+ months; Surgery type: Egd, heart stent x2, colonoscopy; Additional info: Sepsis unknown source, falls, altered mental status TECHNIQUE: Imaging protocol: Diagnostic computed tomography of the chest without contrast. Radiation optimization: All CT scans at this facility use at least one of these dose optimization techniques: automated exposure control; mA and/or kV adjustment per patient size (includes targeted exams where dose is matched to clinical indication); or iterative reconstruction. COMPARISON: CR (CHEST, ) 04/27/2022 1:41 PM RADIATION DOSE METRICS: Total DLP (mGy-cm): 752.7 FINDINGS: Lungs: There is mild bilateral lung disease characterized by subtle reticulonodular opacity diffusely involving the right lung and involving the left upper lobe to a lesser extent. There are scattered solid nodules in the right lung measuring up to 6 mm on series 4, image 33. There is no focal consolidation. There is no bronchiectasis or bronchial wall thickening. Pleural spaces: Trace right pleural effusion. Heart: There is mild cardiac enlargement. There is no pericardial effusion. Coronary arteries: There is severe coronary artery calcification. Lymph nodes: There are mildly prominent upper mediastinal lymph nodes of uncertain significance. Vasculature: There is moderate aortic atherosclerotic disease. Bones/joints: Bones are unremarkable. Soft tissues: There is nonspecific subcutaneous edema in the midline anterior upper chest. There is subcutaneous edema in the flanks bilaterally, asymmetrically greater on the right. months. (Reference: Dulce Maria) 4. Cardiac enlargement. REFERENCES: Dulce Maria Preston, et al. Guidelines for Management of Incidental Pulmonary Nodules Detected on CT Images: From the Fleischner Society 2017. Radiology. 2017;284(1):228-243. PROCEDURE INFORMATION: Exam: CT Abdomen And Pelvis Without Contrast Exam date and time: 04/27/2022 7:05 PM Age: 67 years old Clinical indication: Injury or trauma; Abdominal wall; Other: Sepsis, falls, AMS; Blunt trauma (contusions or hematomas); Prior surgery; Surgery date: 6+ months; Surgery type: Egd, heart stent x2, colonoscopy; Additional info: Sepsis unknown source, falls, altered mental status TECHNIQUE: Imaging protocol: Computed tomography of the abdomen and pelvis without contrast. Radiation optimization: All CT scans at this facility use at least one of these dose optimization techniques: automated exposure control; mA and/or kV adjustment per patient size (includes targeted exams where dose is matched to clinical indication); or iterative reconstruction. COMPARISON: CR (CHEST, ) 04/27/2022 1:41 PM RADIATION DOSE METRICS: Total DLP (mGy-cm): 1072.2 FINDINGS: Liver: The liver is normal. Gallbladder and bile ducts: The gallbladder is normal. There is no biliary dilation. Pancreas: There is mild atrophy of the pancreas. Spleen: The spleen is unremarkable. Adrenal glands: The adrenal glands are unremarkable. Kidneys and ureters: Nonobstructive right renal stones are present. The left kidney and ureter are unremarkable. Stomach and bowel: The stomach is decompressed, preventing meaningful evaluation of wall thickness. The small bowel is nondilated. The colon is unremarkable. Appendix: The appendix is normal. Intraperitoneal space: There is no intraperitoneal free air. Trace pelvic free fluid. Vasculature: There is severe aortic atherosclerotic disease. Lymph nodes: There is no lymphadenopathy in the retroperitoneum, mesentery, pelvis or inguinal regions. Urinary bladder: The urinary bladder is decompressed, preventing meaningful evaluation of wall thickness. The Barros catheter is appropriately positioned with the bulb and tip within the bladder lumen. Reproductive: The prostate and seminal vesicles are unremarkable. Bones/joints: There is moderate degenerative disease in the lower lumbar spine. The pelvis and hips are unremarkable. Soft tissues: There is subcutaneous edema in both flanks. The abdominal wall is intact. There is an intramuscular lipoma in the left gluteus minimus. CT/[place] [id number] IMPRESSION: 1. Mild nonspecific bilateral lung disease. Possible acute or chronic infection. Differential diagnosis includes smoking related interstitial lung disease. 2. Subcutaneous edema in the midline anterior upper chest and in both flanks. Possible contusions. No sign of significant intrathoracic injury. 3. Right lung nodules measuring up to 6 mm. For patients at low risk (minimal or absent history of smoking and of other known risk factors), no routine follow-up is indicated. For patients at high risk (history of smoking or of other known risk factors), consider optional CT Chest at 12 IMPRESSION: 1. No acute intra-abdominal findings. 2. Subcutaneous edema in both flanks. Possible contusions or edema. 3. Incidental findings above.
[2022-04-27 17:46] LABS: Lactic Acid level (Lactate) 2.8 mmol/L (0.5-2.2)
[2022-04-27 17:54] LABS: Troponin 5 2HR 55.96 ng/L (0-15)
[2022-04-27 17:56] LABS: Troponin 5 2HR Delta -2.04 ABS# (0-10)
[2022-04-27 17:59] LABS: Procalcitonin 0.11 ng/mL (0-0.5)
[2022-04-27] MEDS: heparin 5,000 unit/mL INJ 1 mL 5000 UNIT SUBCUT (18:11)
[2022-04-27] MEDS: nitroglycerin 1 gm/inch oint Pkt 1 INCH TOPICAL (18:13)
[2022-04-27] MEDS: piperacillin-tazobactam 3.375 GM in sodium chloride 0.9% (plus) 50 ML IV (18:14)
--- NOTE | 2022-04-27 19:39 | ECG_ITS ---
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 Measurements Intervals [place] Rate: 71 P: 60 MD: 223 QRS: 114 QRSD: 198 T: -12 QT: 513 QTc: 559 Interpretive Statements SINUS RHYTHM WITH FIRST DEGREE AV BLOCK RIGHT BUNDLE BRANCH BLOCK [120+ ms QRS DURATION, UPRIGHT V1, 40+ ms S IN I/aVL/V4/V5/V6] LEFT POSTERIOR FASCICULAR BLOCK [QRS AXIS > 109, INFERIOR Q] MODERATE T-WAVE ABNORMALITY, CONSIDER INFERIOR ISCHEMIA [-0.1+ mV T-WAVE IN II/aVF] Compared to ECG 04/27/2022 15:32:57 T-wave abnormality now present Possible ischemia now present Electronically Signed On 04-28-2022 9:13:53 COMMUNITY [employer]GAN[employer] by Marylin Valenzuela M.D. [email or web address]
[2022-04-27] MEDS: nitroglycerin drip 50 MG/250 ML PREMIX IV (20:18)
[2022-04-27 20:22] LABS: Troponin 5 6HR 64.17 ng/L (0-15)
[2022-04-27 20:32] LABS: Troponin 5 6HR Delta 6.17 ng/L (0-12)
[2022-04-27] MEDS: ipratropium-albuterol 3 mL Neb INHALATION (20:32)
[2022-04-28] VITALS (75 sets, daily range): BP systolic 116–183; BP diastolic 59–129; PULSE 52–89; RESP 11–30; TEMP 36.6; O2SAT 79–99; BMI 41.5
[2022-04-28] MEDS: piperacillin-tazobactam 3.375 GM in sodium chloride 0.9% (plus) 50 ML IV ×3 (03:11→18:03)
[2022-04-28 05:53] LABS: Basophils # 0.1 10^3/uL (0.0-0.1); Basophils % 0.3 %; Eosinophils # 0.3 10^3/uL (0.0-0.8); Eosinophils % 1.8 %; Hematocrit 42.4 % (42.0-52.0); Hemoglobin 13.1 g/dL (11.7-16.6); Lymphocytes # 0.9 10^3/uL (0.8-4.8); Lymphocytes % 5.9 %; Mean Corpuscular HGB Conc 30.9 g/dL (30.0-36.0); Mean Corpuscular Hemoglobin 27.2 pg (28.0-34.0); Mean Corpuscular Volume 88.1 fl (80-94); Mean Platelet Volume 10.5 fL (7.4-10.4); Monocytes # 1.4 10^3/uL (0.2-0.9); Monocytes % 9.1 %; Neutrophils # 13.06 10^3/uL (1.8-7.7); Neutrophils % 82.5 %; Nucleated Red Blood Cells % 0 %; Platelet Count 231 10^3/cmm (130-400); Red Blood Count 4.81 10^6/uL (4.1-5.3); White Blood Count 15.8 10^3/uL (4.0-10.0)
--- NOTE | 2022-04-28 06:00 | USCV_ITS ---
Armando Coleman Age: 67 Gender: M : 1955 Exam Date: 04/28/2022 09:50 Ordering Phys: Jane Sargent MD Technologist: ROSARIO Exam Location: [facility] [place] Indication: heart failure BP: / HR: Rhythm: Sinus Technical Quality: Suboptimal MEASUREMENTS (Male / Female) Normal Values DOPPLER TR Peak Velocity 224.0 cm/s TR Peak Gradient 20.1 mmHg Right Atrial Pressure 6.0 mmHg Pulmonary Artery Systolic Pressu 26.1 mmHg FINDINGS Left Ventricle Right Ventricle Right Atrium Left Atrium Mitral Valve Aortic Valve Tricuspid Valve Pulmonic Valve Pericardium Aorta IVC CONCLUSIONS 1. Normal left ventricular size and moderately decreased left ventricular systolic function. Left ventricular ejection fraction visually estimated at 30-35%.Globaly hypokinesis. 2. Probably mildly decreased right ventricular systolic function. Marylin Valenzuela MD (Electronically Signed) Final Date: 28 April 2022 22:25 S
[2022-04-28] MEDS: clopidogrel 75 mg Tablet PO (06:11)
[2022-04-28] MEDS: heparin 5,000 unit/mL INJ 1 mL 5000 UNIT SUBCUT ×2 (06:11→18:04)
[2022-04-28 06:29] LABS: Alanine Aminotransferase 20 U/L (0-41); Alkaline Phosphatase 124 U/L (40-130); Anion Gap 15.8 (5-19); Aspartate Amino Transferase 23 U/L (0-40); Blood Urea Nitrogen 27 mg/dL (8-23); Calcium 8.7 mg/dL (8.5-10.5); Carbon Dioxide 29 mmol/L (22-29); Chloride 97 mmol/L (98-107); Globulin 3.4 g/dL (1.3-4.6); Glomerular Filtration Rate 50.4 mL/min (90-130); Glucose 128 mg/dL (65-115); Magnesium 2.3 mg/dL (1.7-2.3); Osmolality Calculated 293 mOsm/kg (285-295); Potassium 3.8 mmol/L (3.5-5.1); Sodium 138 mmol/L (136-145); Total Protein 6.4 g/dL (6.6-8.7)
[2022-04-28] MEDS: FUROsemide 10 mg/mL SDV 4mL 40 MG IVP ×2 (08:26→18:03)
[2022-04-28] MEDS: pantoprazole 40 mg SDV IVP (08:26)
[2022-04-28] MEDS: nicotine 14 mg Patch 1 PATCH TRANSDERMA (08:26)
[2022-04-28] MEDS: ipratropium-albuterol 3 mL Neb INHALATION ×2 (09:40→15:50)
--- NOTE | 2022-04-28 12:52 | PM.PN ---
Subjective Subjective: Seen this AM. No acute events overnight. Patient has been on nitroglycerin drip which is starting to calm down. Blood pressure is better controlled at this time. I believe he is back to his baseline mental status. He would like to know what was making him so confused and I informed him that his urine is positive for gram-negative rods. Patient also has open wound on his bilateral lower extremities which may be a potential source of infection. Redness seems to be improved slightly on left leg. He would like to know when he can go home. Vitals/I&O/Wt Last Vital Signs Temp 97.9 F 04/28/22 03:00 Pulse 66 04/28/22 12:00 Resp 16 04/28/22 10:00 BP 143/88 04/28/22 12:00 Pulse Ox 99 04/28/22 12:00 O2 Del Method 04/28/22 09:35 O2 Flow Rate 2 04/28/22 09:35 04/27/22 04/28/22 04/28/22 22:59 06:59 14:59 Intake Total 307.775 / 307.775 384.325 / 692.100 850 / 850 Output Total 375 / 375 Balance 307.775 / 307.775 9.325 / 317.100 850 / 850 Weight last 48 hrs Weight 135 kg Weight 135 kg Weight 106.594 kg Physical Exam Narrative: General: Alert oriented x3. Patient seen laying in bed on 2 L nasal cannula. HEENT: Normocephalic, atraumatic, EOMI, Cardio: Regular rate rhythm, normal S1-S2, Respiratory: Clear to auscultation bilaterally, mild rhonchi present. GI: Abdomen soft, nontender, bowel sounds + Extremities: has several lesions with drainage, erythema upto left knee, erythema slightly improved compared to yesterday at admission. Urinary Catheter Management: 2-way Urethral: Cath Placed During This Visit: yes Reason for Continuing Indwelling Catheter: Acute Urinary Retention or Obstruction Urinary Catheter Date of Insertion: 04/27/22 Urinary Catheter Time of Insertion: 14:00 Data 04/28/22 04:49 04/28/22 04:49 Micro: Microbiology 04/27/22 14:14 Urine Culture - Preliminary Urine,Clean Catch Gram Negative Rods 04/27/22 16:55 Blood Culture - Preliminary Blood SPECIMEN COLLECTED 04/27/22 17:07 Blood Culture - Preliminary Blood SPECIMEN COLLECTED A&P Assessment and plan (1) Acute on chronic renal failure: (2) Chronic kidney disease: (3) Coronary artery disease: (4) Hyperlipidemia: (5) HTN (hypertension): (6) Ischemic cardiomyopathy: (7) Multiple sclerosis: (8) CHF (congestive heart failure): (9) Hypothermia: (10) Lactic acidosis: Plan #Altered mental status/resolved #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 #Hypothermia?resolved #Left leg cellulitis with open wounds, draining - Check sputum culture gram stain, blood cultures, urine culture, procalcitonin. Blood cultures negative to date. Urine culture positive for gram-negative rods. Procalcitonin 0.11 ? Continue Plavix, atorvastatin ? Place Barros catheter for strict I's and O's ? Place empiric antibiotics Vanco and Zosyn ? Lasix 40 IV daily ? Recheck echo ? Trend CPK ? Once more medically stable start PT OT eval ? May transfer out of unit once blood pressure is better controlled. ? Patient also hypothermic. Place warming blanket ? Delta troponin negative. ? EKG showed first-degree AV block. We will hold Coreg ? May restart home blood pressure medications. Plan to wean off nitro drip. ? Continue Barros catheter -TSH pending. - wound cultures - he was not taking medications for last few days, ?Order wound care Full code DVT prophylaxis: SCDs, heparin SQ twice daily Attestations Medical Necessity Statement*: Requires greater than 2 midnight stay for management of altered mental status, CHF exacerbation, lactic acidosis. Coding Level of Care Code Acute Code for [facility] Fwd Diagnoses Acute on chronic renal failure N17.9; N18.9 Chronic kidney disease N18.9 Coronary artery disease I25.10 Hyperlipidemia E78.5 HTN (hypertension) I10 Ischemic cardiomyopathy I25.5 Multiple sclerosis G35 CHF (congestive heart failure) I50.9 Hypothermia T68.XXXA Lactic acidosis E87.20
[2022-04-28 14:40] LABS: Creatine Phosphokinase 141 U/L (39-308); Lactic Sepsis W/Reflex 2.7 mmol/L (0.5-2.2)
[2022-04-28 15:39] LABS: Reflex Lactate Order REFLEX LACTIC ORDERD
[2022-04-28] MEDS: acetaminophen 325 mg Tablet 650 MG PO (15:57)
[2022-04-28 17:01] LABS: Lactic Acid level (Lactate) 1.9 mmol/L (0.5-2.2)
[2022-04-28] MEDS: carvedilol 12.5 mg Tablet PO (20:27)
[2022-04-28] MEDS: benzonatate 100 mg Capsule PO (22:55)
[2022-04-29] VITALS (46 sets, daily range): BP systolic 97–176; BP diastolic 62–96; PULSE 44–68; RESP 10–25; TEMP 36.1–36.7; O2SAT 81–100
[2022-04-29] MEDS: vancomycin 1,250 MG/250 ML PIGGYBACK 250 MG IV ×2 (00:39→12:55)
[2022-04-29] MEDS: lanolin oint 7 gm 1 APPLIC TOPICAL ×3 (00:43→21:04)
[2022-04-29] MEDS: piperacillin-tazobactam 3.375 GM in sodium chloride 0.9% (plus) 50 ML IV ×2 (01:36→09:03)
[2022-04-29 04:56] LABS: Basophils # 0.1 10^3/uL (0.0-0.1); Basophils % 0.5 %; Eosinophils # 0.3 10^3/uL (0.0-0.8); Eosinophils % 2.9 %; Hematocrit 38.9 % (42.0-52.0); Lymphocytes # 1.2 10^3/uL (0.8-4.8); Lymphocytes % 9.9 %; Mean Corpuscular HGB Conc 30.8 g/dL (30.0-36.0); Mean Corpuscular Hemoglobin 27.2 pg (28.0-34.0); Mean Corpuscular Volume 88.2 fl (80-94); Mean Platelet Volume 10.9 fL (7.4-10.4); Monocytes # 1.3 10^3/uL (0.2-0.9); Monocytes % 11.6 %; Neutrophils # 8.64 10^3/uL (1.8-7.7); Neutrophils % 74.7 %; Nucleated Red Blood Cells % 0 %; Platelet Count 205 10^3/cmm (130-400); Red Blood Count 4.41 10^6/uL (4.1-5.3); White Blood Count 11.6 10^3/uL (4.0-10.0)
[2022-04-29 05:02] LABS: Blood Urea Nitrogen 28 mg/dL (8-23); Calcium 7.8 mg/dL (8.5-10.5); Carbon Dioxide 30 mmol/L (22-29); Chloride 95 mmol/L (98-107); Glomerular Filtration Rate 43.2 mL/min (90-130); Glucose 120 mg/dL (65-115); Magnesium 2.1 mg/dL (1.7-2.3); Osmolality Calculated 287 mOsm/kg (285-295); Sodium 135 mmol/L (136-145)
[2022-04-29] MEDS: losartan 50 mg Tablet 100 MG PO (05:34)
[2022-04-29] MEDS: clopidogrel 75 mg Tablet PO (05:34)
[2022-04-29] MEDS: heparin 5,000 unit/mL INJ 1 mL 5000 UNIT SUBCUT ×2 (05:35→19:16)
[2022-04-29 06:15] LABS: Anion Gap 13.3 (5-19); Potassium 3.3 mmol/L (3.5-5.1)
[2022-04-29 07:42] LABS: Vitamin B12 654 pg/mL (232-1245)
[2022-04-29] MEDS: albuterol 2.5 mg/3 mL Neb INHALATION (08:29)
[2022-04-29] MEDS: ipratropium 0.5 mg/2.5 mL Neb INHALATION (08:29)
[2022-04-29] MEDS: carvedilol 12.5 mg Tablet PO ×2 (08:35→21:02)
[2022-04-29] MEDS: amlodipine 10 mg Tablet PO (08:35)
[2022-04-29] MEDS: acetaminophen 325 mg Tablet 650 MG PO (08:35)
[2022-04-29] MEDS: FUROsemide 10 mg/mL SDV 4mL 40 MG IVP (08:39)
[2022-04-29] MEDS: nicotine 14 mg Patch 1 PATCH TRANSDERMA (08:39)
[2022-04-29] MEDS: pantoprazole 40 mg SDV IVP (08:39)
--- NOTE | 2022-04-29 12:10 | PM.DCS ---
Discharge Providers Date of Admission: 04/27/22 17:05 Date of Discharge: April 29, 2022 Attending Provider at Admission: Jane aSrgent MD Attending Provider at Discharge: Ted Garcia MD Primary Care Provider: Kylie Vogel Diagnoses at Discharge Discharge Diagnosis (1) Acute on chronic renal failure: Status: Acute (2) Chronic kidney disease: Status: Acute (3) Coronary artery disease: Status: Acute (4) Hyperlipidemia: Status: Acute (5) HTN (hypertension): Status: Acute (6) Ischemic cardiomyopathy: Status: Acute (7) Multiple sclerosis: Status: Acute (8) CHF (congestive heart failure): Status: Acute (9) Hypothermia: Status: Acute (10) Lactic acidosis: Status: Acute Reason for Visit Reason for Visit: [facility] Hospital Course Hospital Course 67-year-old male with history of multiple sclerosis, neurogenic bladder, self caths at home, lives with his significant other presented with CHF exacerbation hypertensive urgency required nitroglycerin drip, he was also diagnosed with metabolic encephalopathy related to sepsis due to UTI. He was not a candidate of septic bolus because of CHF exacerbation, he received antibiotics, lactic acid improved with above-mentioned intervention. Patient has bilateral lower extremity venous stasis dermatitis hyperemia has improved cellulitis signs not present at the time of discharge, he will receive bacitracin topical ointment for his lower extremities and levofloxacin for gram-negative rods in urine culture. He has chronic kidney disease creatinine seems around baseline. CPK improved. Patient has mixed CHF, noncompliant, threatening to leave AMA, there is plan in place to discharge him on antibiotics and have him follow-up with his PCP. He has remained afebrile, leukocytosis around 11,000. Potassium 3.3, creatinine 1.6. Good urine output in last 12 hours, metabolic encephalopathy has improved. Sepsis resolved, patient was 91% on room air, does not use oxygen at home, patient stating he was prescribed about 2 L in the past but he does not use it. Physical Exam Narrative: Patient is laying supine Currently on room air saturating 91% Mild signs of CHF exacerbation Low extremity no signs of active cellulitis Hyperemia improved Venous stasis dermatitis Barros catheter draining yellow-colored urine Abdomen soft S1, S2 variable GCS 15 Urinary Catheter Management: 2-way Urethral: Cath Placed During This Visit: yes Reason for Continuing Indwelling Catheter: Accurate Measurement of Urinary Output in Critically Ill Patients Urinary Catheter Date of Insertion: 04/27/22 Urinary Catheter Time of Insertion: 14:00 Discharge Data Studies Completed and Pending Completed Studies During Hospitalization Category Date Time Status CT cervical spin wo con* [id number] Urgent Cat Scan 04/27/22 13:[address] chest abdomen pelvis [[place] [id number] Cat Scan 04/27/22 17:27 Completed ] Stat CT head wo con* [id number] Stat Cat Scan 04/27/22 13:45 Completed XR chest 1V portable [id number] Stat Exams 04/27/22 13:24 Completed CV. echo limited [id number] Stat Ultrasound 04/28/22 06:00 Completed Pending at discharge Category Date Time Status Blood Culture Stat Lab 04/27/22 16:55 Results Sputum Culture and Gram Stain Stat Lab 04/27/22 17:27 Uncollected Urine Culture Stat Lab 04/27/22 14:14 Results Radiology Impressions Chest X-Ray 04/27/22 13:24 IMPRESSION: 1. Cardiomegaly. 2. Hyperinflation and interstitial prominence. Cervical Spine CT 04/27/22 13:45 IMPRESSION: 1. Evaluation is limited by motion artifact. 2. While no gross evidence for acute bony injury is identified in the visualized cervical spine, repeat CT following patient sedation is recommended for definitive evaluation given the history of trauma. Head CT 04/27/22 13:45 IMPRESSION: 1. No acute post-traumatic brain injury. 2. Bilateral periorbital soft tissue swelling and orbital preseptal hematomas. 3. Additional findings as described above. Chest/Abdomen/Pelvis CT 04/27/22 17:27 IMPRESSION: 1. Mild nonspecific bilateral lung disease. Possible acute or chronic infection. Differential diagnosis includes smoking related interstitial lung disease. 2. Subcutaneous edema in the midline anterior upper chest and in both flanks. Possible contusions. No sign of significant intrathoracic injury. 3. Right lung nodules measuring up to 6 mm. For patients at low risk (minimal or absent history of smoking and of other known risk factors), no routine follow-up is indicated. For patients at high risk (history of smoking or of other known risk factors), consider optional CT Chest at 12 IMPRESSION: 1. No acute intra-abdominal findings. 2. Subcutaneous edema in both flanks. Possible contusions or edema. 3. Incidental findings above. Laboratory Results WBC 11.6 10^3/uL (4.0-10.0) H 04/29/22 03:27 RBC 4.41 10^6/uL (4.1-5.3) 04/29/22 03:27 Hgb 12.0 g/dL (11.7-16.6) 04/29/22 03:27 Hct 38.9 % (42.0-52.0) L 04/29/22 03:27 MCV 88.2 fl (80-94) 04/29/22 03:27 MCH 27.2 pg (28.0-34.0) L 04/29/22 03:27 MCHC 30.8 g/dL (30.0-36.0) 04/29/22 03: RDW 17.0 % (12.1-15.1) H 04/29/22 03:27 Plt Count 205 10^3/cmm (130-400) 04/29/22 03:27 MPV 10.9 fL (7.4-10.4) H 04/29/22 03:27 Neut % (Auto) 74.7 % 04/29/22 03:27 Lymph % (Auto) 9.9 % 04/29/22 03:27 Jewell % (Auto) 11.6 % 04/29/22 03:27 Eos % (Auto) 2.9 % 04/29/22 03:27 Baso % (Auto) 0.5 % 04/29/22 03:27 Neut # (Auto) 8.64 10^3/uL (1.8-7.7) H 04/29/22 03:27 Lymph # (Auto) 1.2 10^3/uL (0.8-4.8) 04/29/22 03:27 Jewell # (Auto) 1.3 10^3/uL (0.2-0.9) H 04/29/22 03:27 Eos # (Auto) 0.3 10^3/uL (0.0-0.8) 04/29/22 03:27 Baso # (Auto) 0.1 10^3/uL (0.0-0.1) 04/29/22 03:27 Nucleated RBC % (auto) 0 % 04/29/22 03:27 Nucleated RBCs # 0.0 /100WBC 04/29/22 03:27 PT 16.30 SECONDS (12.1-14.9) H 04/27/22 13:44 INR 1.28 (0.8-1.2) H 04/27/22 13:44 Specimen Type Arterial 04/27/22 14:55 Sample Site Radial, left 04/27/22 14:55 ABG pH 7.39 (7.35-7.45) 04/27/22 14:55 ABG pCO2 46.4 mmHg (35-45) H 04/27/22 14:55 ABG pO2 66.7 mmHg (80.0-100.0) L 04/27/22 14:55 ABG HCO3 28.3 mmol/L (22-26) H 04/27/22 14:55 ABG Base Excess 2.7 mmol/L (-2.0-2.0) H 04/27/22 14:55 Adonis Test Pos 04/27/22 14:55 Hematocrit 46.2 % (42-52) 04/27/22 14:55 O2 Delivery Device Nc 04/27/22 14:55 O2 Liters/Min 2.5 % 04/27/22 14:55 FiO2 30.0 % 04/27/22 14:55 Wallpaper Consultant ID Cak 04/27/22 14:55 Sodium 135 mmol/L (136-145) L 04/29/22 03:27 Potassium 3.3 mmol/L (3.5-5.1) L 04/29/22 03:27 Chloride 95 mmol/L (98-107) L 04/29/22 03:27 Carbon Dioxide 30 mmol/L (22-29) H 04/29/22 03:27 Anion Gap 13.3 (5-19) 04/29/22 03:27 BUN 28 mg/dL (8-23) H 04/29/22 03:27 Creatinine 1.6 mg/dL (0.7-1.2) H 04/29/22 03:27 GFR Calculation 43.2 mL/min (90-130) L 04/29/22 03:27 Glucose 120 mg/dL (65-115) H 04/29/22 03:27 Calculated Osmolality 287 mOsm/kg (285-295) 04/29/22 03:27 Lactic Acid 2.7 mmol/L (0.5-2.2) H 04/28/22 13:53 Lactic Acid (Sepsis) 1.9 mmol/L (0.5-2.2) 04/28/22 16:24 Calcium 7.8 mg/dL (8.5-10.5) L 04/29/22 03:27 Magnesium 2.1 mg/dL (1.7-2.3) 04/29/22 03:27 Total Bilirubin 1.0 mg/dL (0.15-1.2) 04/28/22 04:49 AST 23 U/L (0-40) 04/28/22 04:49 ALT 20 U/L (0-41) 04/28/22 04:49 Alkaline Phosphatase 124 U/L (40-130) 04/28/22 04:49 Ammonia 19 umol/L (16-60) 04/27/22 13:44 Creatine Kinase 141 U/L (39-308) 04/28/22 13:53 Troponin T Baseline 58 ng/L (0-15) H 04/27/22 13:44 Troponin T 120 Minute 55.96 ng/L (0-15) H 04/27/22 17:07 Delta Troponin T -2.04 ABS# (0-10) L 04/27/22 17:07 Troponin T Hi Sens 6Hr 64.17 ng/L (0-15) H 04/27/22 19:34 Troponin T Hi Sens 6Hr Delta 6.17 ng/L (0-12) 04/27/22 19:34 NT-Pro-B Natriuret Pep 96910 pg/mL (0-125) H 04/27/22 13:44 Total Protein 6.4 g/dL (6.6-8.7) L 04/28/22 04:49 Albumin 3.0 g/dL (3.5-5.2) L 04/28/22 04:49 Globulin 3.4 g/dL (1.3-4.6) 04/28/22 04:49 Lipase 12 U/L (13-60) L 04/27/22 13:44 Vitamin B12 654 pg/mL (232-1245) 04/29/22 03:27 Procalcitonin 0.11 ng/mL (0-0.5) 04/27/22 17:07 Urine Color Dark yellow (Yellow) 04/27/22 14:14 Urine Appearance Sl hazy (CLEAR) A 04/27/22 14:14 Urine pH 5 (5-7) 04/27/22 14:14 Ur Specific [place] 1.025 (1.005-1.030) 04/27/22 14:14 Urine Protein 3+ (Negative) H 04/27/22 14:14 Urine Glucose (UA) Norm (Normal) 04/27/22 14:14 Urine Ketones 1+ (Negative) H 04/27/22 14:14 Urine Blood 3+ (Negative) H 04/27/22 14:14 Urine Nitrate Negative (Negative) 04/27/22 14:14 Urine Bilirubin 1+ (Negative) H 04/27/22 14:14 Urine Urobilinogen 1 mg/dL (Negative) H 04/27/22 14:14 Ur Leukocyte Esterase 1+ (Negative) H 04/27/22 14:14 Urine RBC 5-10 /hpf (0-2) H 04/27/22 14:14 Urine WBC 25-40 /hpf (0-5) H 04/27/22 14:14 Ur Squamous Epith Cells None /hpf (0-5) 04/27/22 14:14 Amorphous Sediment Not Reportable 04/27/22 14:14 Urine Bacteria 3+ /hpf (NONE) H 04/27/22 14:14 Urine Opiates Screen Negative ng/mL (Negative) 04/27/22 14:14 Ur Barbiturates Screen Negative ng/mL (Negative) 04/27/22 14:14 Ur Phencyclidine Scrn Negative ng/mL (Negative) 04/27/22 14:14 Ur Amphetamines Screen Negative ng/mL (Negative) 04/27/22 14:14 U Benzodiazepines Scrn Negative ng/mL (Negative) 04/27/22 14:14 Urine Cocaine Screen Negative ng/mL (Negative) 04/27/22 14:14 U Marijuana (THC) Screen Negative ng/mL (Negative) 04/27/22 14:14 Vitals Last Vital Signs Temp 98.1 F 04/29/22 04:30 Pulse 61 04/29/22 09:00 Resp 19 H 04/29/22 09:00 BP 143/72 04/29/22 09:00 Pulse Ox 86 L 04/29/22 09:33 O2 Del Method 04/29/22 08:29 O2 Flow Rate 2 04/29/22 09:33 Discharge Plan Discharge Patient Disposition: Home Condition: Stable Prescriptions: New levofloxacin 750 mg tablet 750 mg PO DAILY 14 Days Qty: 14 0RF bacitracin 500 unit/gram ointment 1 applic topical Q8H Qty: 14 0RF hydralazine 25 mg tablet 25 mg PO TID Qty: 90 2RF Continued nitroglycerin 0.4 mg tablet, sublingual 0.4 mg SUBLINGUAL Q5M PRN (Reason: chest pain) Qty: 30 4RF Rx Instructions: until response; do not exceed 3 doses per episode losartan 100 mg tablet 100 mg PO QAM atorvastatin 40 mg tablet 40 mg PO QPM carvedilol 6.25 mg Tablet 12.5 mg PO BID@0900,2100 Qty: 180 0RF clopidogrel 75 mg tablet 75 mg PO QAM Qty: 90 0RF amlodipine 5 mg Tablet 10 mg PO DAILY Qty: 90 0RF furosemide 40 mg tablet 40 mg PO BID potassium chloride 10 mEq tablet extended release 10 meq PO DAILY Discharge Orders: Discharge Order (Routine); Ordered 04/29/22 Ordered By: Ted Garcia Other Ambulatory Orders: DME: Oxygen (Order) Location: None Selected Ordered By: Ted Garcia Referrals: [facility] [place] [Outside] Kylie Vogel [Primary Care Provider] - Patient Instructions: Opioid Safety Discharge Attestations Time Spent in Discharge Care*: less than 30 min Quality Metrics Clinical Quality Measures [ No reported AMI, CVA or VTE this stay] Coding Level of Care Code Acute Chg FW DC note Diagnoses Acute on chronic renal failure N17.9; N18.9 Chronic kidney disease N18.9 Coronary artery disease I25.10 Hyperlipidemia E78.5 HTN (hypertension) I10 Ischemic cardiomyopathy I25.5 Multiple sclerosis G35 CHF (congestive heart failure) I50.9 Hypothermia T68.XXXA Lactic acidosis E87.20
--- NOTE | 2022-04-29 12:10 | PC.CHAP ---
Pastoral Care Encounter/Spiritual Assessment Type of Contact [] Declined leather seasoner visit [] Patient/Family/Request visit [] Outpatient visit [] Follow-up visit [] Physician referral [] Code/Alert [] Routine visit [] Staff referral [] Actively dying [] Patient sleeping [] Family support [] [] Out of room []x Palliative care [] [] Receiving care in room [] Pre-surgical visit [] Trauma [] Long length of stay [] ICU visit [] Other: Relational/Emotional Strength [] Patient feels connected with others/family/visitors/staff [] Distress [] Loneliness/isolation [] Abandonment Spirituality of Patient [] Person of Shavonne [] Attends Protestant of their [place] [x] Believes in Prayer [] Reads Bible or Denominational materials [] There are Spiritual issues to be addressed Research Specialist Interventions [x] Prayer [] Active listening [] Non-anxious presence [] Spiritual/emotional support [] Crisis/trauma care [] Spiritual counseling [] Bereavement support [] Provided bereavement packet [] Provided Bible/devotional materials [] Provided toy/stuffed animal, coloring book to patient or family member x [] Provided Communion [] Anointing/[place] [] Salvation [x] Completed spiritual assessment [] Other: Impact on Illness or Injury [] Angry [] Fearful [] Anxious [] Often cries [] Exhaustion [] Unable to work [] Unable to attend tenriism [] Unable to walk/stand [] Unable to read [] Unable to drive [] Unable to eat/drink [] Unable to sleep [] Unable to be with family [] Patient intubated [] Other: Summary Time spent with patient 10 min
--- NOTE | 2022-04-29 14:39 | PM.PN ---
Subjective Subjective: Patient is very weak not able to get up, we will cancel discharge orders and request PT to send him to rehab, patient is agreeable is at the bedside Vitals/I&O/Wt Last Vital Signs Temp 98.1 F 04/29/22 04:30 Pulse 57 L 04/29/22 11:30 Resp 18 04/29/22 11:30 BP 145/86 04/29/22 09:30 Pulse Ox 82 L 04/29/22 12:01 O2 Del Method 04/29/22 11:00 O2 Flow Rate 2 04/29/22 11:00 04/28/22 04/29/22 04/29/22 22:59 06:59 14:59 Intake Total 730 / 1727.65 1215.425 / 2943.075 300 / 300 Output Total 1500 / 2950 Balance 730 / 277.65 -284.575 / -6.925 300 / 300 Weight last 48 hrs Weight 135 kg Weight 135 kg Weight 135 kg Physical Exam Narrative: Patient is laying supine Currently on room air satura ting 91% Mild sign s of CHF exacerbat ion Low extremity no signs of active cellulitis Hypere yvonne improved Venou s stasis dermatiti s Barros catheter d raining yellow-col ored urine Abdomen soft S1, S2 varia ble GCS 1 Urinary Catheter Management: 2-way Urethral: Cath Placed During This Visit: yes Reason for Continuing Indwelling Catheter: Accurate Measurement of Urinary Output in Critically Ill Patients Urinary Catheter Date of Insertion: 04/27/22 Urinary Catheter Time of Insertion: 14:00 Data 04/29/22 03:27 04/29/22 03:27 Micro: Microbiology 04/27/22 16:55 Blood Culture - Preliminary Blood NEGATIVE TO DATE 04/27/22 17:07 Blood Culture - Preliminary Blood NEGATIVE TO DATE 04/27/22 14:14 Urine Culture - Preliminary Urine,Clean Catch Gram Negative Rods A&P Assessment and plan (1) Cardiomyopathy: (2) Encephalopathy: (3) Acute on chronic urinary retention: Plan Patient will need rehab Systolic CHF exacerbation: Continue diuresis Patient will need PT evaluation Currently on 2 L nasal cannula oxygen supplementation Patient is agreeable to go to rehab Full code Lower extremity cellulitis continue diuresis, Attestations Medical Necessity Statement*: Continue hospitalization Time Spent in Patient Care: 30 Coding Level of Care Code Acute Code for Chg Fwd Diagnoses Cardiomyopathy I42.9 Encephalopathy G93.40 Acute on chronic urinary retention R33.9
[2022-04-29] MEDS: doxycycline 100 mg Tablet PO (19:19)
[2022-04-30] VITALS (12 sets, daily range): BP systolic 118–161; BP diastolic 64–86; PULSE 46–88; RESP 14–19; TEMP 36.4–36.8; O2SAT 88–93
--- NOTE | 2022-04-30 01:02 | PC.NURSE ---
Patient transferred to room 253-2. Report called to RENE Chamorro. All questions answered.
[2022-04-30 02:54] LABS: Basophils # 0.1 10^3/uL (0.0-0.1); Basophils % 0.7 %; Eosinophils # 0.4 10^3/uL (0.0-0.8); Eosinophils % 3.7 %; Hematocrit 39.6 % (42.0-52.0); Hemoglobin 12.2 g/dL (11.7-16.6); Lymphocytes # 1.1 10^3/uL (0.8-4.8); Lymphocytes % 11.7 %; Mean Corpuscular HGB Conc 30.8 g/dL (30.0-36.0); Mean Corpuscular Hemoglobin 26.9 pg (28.0-34.0); Mean Corpuscular Volume 87.4 fl (80-94); Mean Platelet Volume 10.1 fL (7.4-10.4); Monocytes # 1.2 10^3/uL (0.2-0.9); Monocytes % 12.3 %; Neutrophils # 6.68 10^3/uL (1.8-7.7); Neutrophils % 71.4 %; Nucleated Red Blood Cells % 0 %; Platelet Count 183 10^3/cmm (130-400); Red Blood Count 4.53 10^6/uL (4.1-5.3); Red Cell Distribution Width 17.2 % (12.1-15.1); White Blood Count 9.4 10^3/uL (4.0-10.0)
[2022-04-30] MEDS: heparin 5,000 unit/mL INJ 1 mL 5000 UNIT SUBCUT ×2 (05:27→16:59)
[2022-04-30] MEDS: losartan 50 mg Tablet 100 MG PO (05:27)
[2022-04-30] MEDS: clopidogrel 75 mg Tablet PO (05:27)
[2022-04-30 09:13] LABS: Anion Gap 11.6 (5-19); Blood Urea Nitrogen 25 mg/dL (8-23); Carbon Dioxide 32 mmol/L (22-29); Chloride 94 mmol/L (98-107); Glomerular Filtration Rate 46.5 mL/min (90-130); Glucose 138 mg/dL (65-115); Osmolality Calculated 285 mOsm/kg (285-295); Potassium 3.6 mmol/L (3.5-5.1); Sodium 134 mmol/L (136-145)
[2022-04-30] MEDS: doxycycline 100 mg Tablet PO ×2 (10:35→16:59)
[2022-04-30] MEDS: amlodipine 10 mg Tablet PO (10:35)
[2022-04-30] MEDS: FUROsemide 40 mg Tablet PO (10:35)
[2022-04-30] MEDS: potassium chloride ER 10 mEq Tablet PO (10:36)
[2022-04-30] MEDS: carvedilol 12.5 mg Tablet PO ×2 (10:36→20:33)
--- NOTE | 2022-04-30 11:24 | PM.PN ---
Subjective Subjective: Patient was very agitated pulled his IV had a bowel movement, nursing staff was notified, for now we are allowing him to stay in the hospital without IV line He has been afebrile, no leukocytosis, will follow up with PT evaluation Will need rehab Vitals/I&O/Wt Last Vital Signs Temp 97.5 F L 04/30/22 04:00 Pulse 56 L 04/30/22 08:35 Resp 17 04/30/22 08:35 BP 161/79 04/30/22 08:00 Pulse Ox 93 04/30/22 08:35 O2 Del Method 04/30/22 08:35 O2 Flow Rate 5 04/30/22 04:00 04/29/22 04/30/22 04/30/22 22:59 06:59 14:59 Intake Total 1000 / 1300 240 / 240 Output Total 700 / 700 400 / 1100 Balance 300 / 600 -400 / 200 240 / 240 Weight last 48 hrs Weight 137.609 kg Weight 135 kg Physical Exam Narrative: Morbidly obese Stage I ulcer back of his left leg Serosanguineous discharge Currently on room air Hemodynamically stable Agitated Nonfocal neuro exam Abdomen soft Bradycardia with S1-S2 tachycardic Urinary Catheter Management: 2-way Urethral: Cath Placed During This Visit: yes Reason for Continuing Indwelling Catheter: Acute Urinary Retention or Obstruction Urinary Catheter Date of Insertion: 04/29/22 Urinary Catheter Time of Insertion: 19:54 Data 04/30/22 02:38 04/30/22 07:55 Micro: Microbiology 04/27/22 14:14 Urine Culture - Final Urine,Clean Catch Klebsiella oxytoca A&P Assessment and plan (1) Cardiomyopathy: (2) Encephalopathy: (3) Acute on chronic urinary retention: (4) Skin ulcer: (5) Falls frequently: (6) CHF (congestive heart failure): (7) Acute on chronic renal failure: (8) Ischemic cardiomyopathy: Plan Ischemic cardiomyopathy, EF 30 to 35%, patient has refused LifeVest Frequent falls, morbid obesity, swelling of legs Requested PT evaluation he will need rehab placement UTI: Klebsiella, will switch to p.o. Levaquin he does not want IV Venous stasis dermatitis, Cellulitis of lower extremities: Improving Dry dressing, daily to twice a day change, ALISSA Mulligan Also has component of lymphedema Full code, will rediscuss goals of care patient is very noncompliant, High risk for deterioration Systolic CHF: Improving gradually, continue low-dose Lasix Attestations Medical Necessity Statement*: Continue medical management Time Spent in Patient Care: 30 Coding Level of Care Code Acute Code for Chg Fwd Diagnoses Cardiomyopathy I42.9 Encephalopathy G93.40 Acute on chronic urinary retention R33.9 Skin ulcer L98.499 Falls frequently R29.6 CHF (congestive heart failure) I50.9 Acute on chronic renal failure N17.9; N18.9 Ischemic cardiomyopathy I25.5
[2022-04-30] MEDS: levoFLOXacin 750 mg Tablet PO (12:29)
[2022-05-01] VITALS (10 sets, daily range): BP systolic 128–158; BP diastolic 68–87; PULSE 50–74; RESP 16–20; TEMP 36.3–36.8; O2SAT 90–96
[2022-05-01] MEDS: losartan 50 mg Tablet 100 MG PO (05:18)
[2022-05-01] MEDS: clopidogrel 75 mg Tablet PO (05:18)
[2022-05-01] MEDS: heparin 5,000 unit/mL INJ 1 mL 5000 UNIT SUBCUT ×2 (05:18→17:04)
[2022-05-01] MEDS: nicotine 14 mg Patch 1 PATCH TRANSDERMA (08:40)
[2022-05-01] MEDS: amlodipine 10 mg Tablet PO (08:42)
[2022-05-01] MEDS: FUROsemide 40 mg Tablet PO (08:42)
[2022-05-01] MEDS: potassium chloride ER 10 mEq Tablet PO (08:42)
[2022-05-01] MEDS: doxycycline 100 mg Tablet PO ×2 (08:43→17:04)
[2022-05-01] MEDS: pantoprazole DR 40 mg Tablet PO (08:43)
[2022-05-01] MEDS: carvedilol 12.5 mg Tablet PO ×2 (08:45→20:10)
[2022-05-01] MEDS: oxyCODONE 5 mg IR Tab/Cap PO (08:51)
--- NOTE | 2022-05-01 10:12 | PM.PN ---
Subjective Subjective: Awaiting placement No overnight events Patient is requiring 2 L of oxygen Vitals/I&O/Wt Last Vital Signs Temp 98.0 F 05/01/22 08:00 Pulse 67 05/01/22 08:00 Resp 16 05/01/22 08:51 BP 155/81 05/01/22 08:00 Pulse Ox 92 05/01/22 08:00 O2 Del Method 05/01/22 08:00 O2 Flow Rate 2 05/01/22 04:00 04/30/22 05/01/22 05/01/22 22:59 06:59 14:59 Intake Total 240 / 480 240 / 240 Output Total 1350 / 1350 300 / 1650 Balance -1110 / -870 -300 / -1170 240 / 240 Weight last 48 hrs Weight 130.861 kg Weight 137.609 kg Physical Exam Narrative: Morbid obesity Awake and alert Not anxious as yesterday Currently on 2 L Signs of fluid overload Venous stasis dermatitis Stage Ulcer left calf area 2 x 2 centimeter Wet-to-dry dressing PERRLA Nonfocal neuro exam No audible stridor or wheezing Urinary Catheter Management: 2-way Urethral: Cath Placed During This Visit: yes Reason for Continuing Indwelling Catheter: Acute Urinary Retention or Obstruction Urinary Catheter Date of Insertion: 04/29/22 Urinary Catheter Time of Insertion: 19:54 Data 04/30/22 02:38 04/30/22 07:55 A&P Assessment and plan (1) Cardiomyopathy: (2) Encephalopathy: (3) Acute on chronic urinary retention: (4) Skin ulcer: (5) Ischemic cardiomyopathy: (6) Cellulitis: Plan Systolic CHF exacerbation: Currently patient is on Lasix 40 mg daily Cellulitis of lower extremities improving, he will need doxycycline, wet-to-dry dressing UTI: Currently on levofloxacin Metabolic encephalopathy related to UTI: Resolved Awaiting placement to rehab Patient has refused LifeVest, noncompliant, active smoker, 40 mg nicotine patch applied This morning he received oxycodone 5 mg once No need to repeat labs tomorrow Attestations Medical Necessity Statement*: Awaiting placement Time Spent in Patient Care: 30 Coding Level of Care Code Acute Code for [facility] Diagnoses Cardiomyopathy I42.9 Encephalopathy G93.40 Acute on chronic urinary retention R33.9 Skin ulcer L98.499 Ischemic cardiomyopathy I25.5 Cellulitis L03.90
[2022-05-01] MEDS: levoFLOXacin 750 mg Tablet PO (11:41)
[2022-05-01] MEDS: acetaminophen 325 mg Tablet 650 MG PO (18:37)
[2022-05-02] VITALS (9 sets, daily range): BP systolic 143–169; BP diastolic 78–101; PULSE 56–66; RESP 16–20; TEMP 36.4–36.6; O2SAT 91–97
[2022-05-02] MEDS: heparin 5,000 unit/mL INJ 1 mL 5000 UNIT SUBCUT ×2 (05:25→16:53)
[2022-05-02] MEDS: losartan 50 mg Tablet 100 MG PO (05:25)
[2022-05-02] MEDS: clopidogrel 75 mg Tablet PO (05:25)
[2022-05-02] MEDS: pantoprazole DR 40 mg Tablet PO (08:16)
[2022-05-02] MEDS: FUROsemide 40 mg Tablet PO (08:16)
[2022-05-02] MEDS: amlodipine 10 mg Tablet PO (08:16)
[2022-05-02] MEDS: potassium chloride ER 10 mEq Tablet PO (08:16)
[2022-05-02] MEDS: hyDRALAzine 25 mg Tablet PO ×3 (08:16→20:45)
[2022-05-02] MEDS: nicotine 14 mg Patch 1 PATCH TRANSDERMA (08:17)
[2022-05-02] MEDS: doxycycline 100 mg Tablet PO ×2 (08:34→17:00)
--- NOTE | 2022-05-02 09:08 | PC.SOCIAL ---
IMM update IMM Updated with patient. Copy PG 2 provided. Verbalized an understanding. Initialled, dated, timed, and placed in chart.
--- NOTE | 2022-05-02 09:35 | PM.PN ---
Subjective Subjective: Patient is asking if he could be released today however we still have to get acceptance from rehab before planning for discharge, he was arguing with his that he wanted to go home, is very adamant that he needs to stay and get some physical therapy and then rehab No overnight events Hypertensive episodes noted along bradycardia, held Coreg, Added hydralazine Vitals/I&O/Wt Last Vital Signs Temp 97.6 F 05/02/22 08:00 Pulse 58 L 05/02/22 08:17 Resp 16 05/02/22 08:17 BP 169/99 05/02/22 08:00 Pulse Ox 94 05/02/22 08:17 O2 Del Method 05/02/22 08:17 O2 Flow Rate 3 05/02/22 08:17 05/01/22 05/02/22 05/02/22 22:59 06:59 14:59 Intake Total 480 / 960 480 / 1440 360 / 360 Output Total 350 / 350 350 / 700 Balance 130 / 610 130 / 740 360 / 360 Weight last 48 hrs Weight 129.926 kg Weight 130.861 kg Physical Exam Narrative: Patient was arguing with his when entered the room Otherwise awake and alert Nonfocal neuro exam Currently on 2 L nasal cannula Abdomen distended nontender Lower extremity venous stasis dermatitis Noticeably covered with dry dressing The drainage from dressing seem to be less in quantity today, dressing is not completely soaked No audible stridor or wheezing Urinary Catheter Management: 2-way Urethral: Cath Placed During This Visit: yes Reason for Continuing Indwelling Catheter: Acute Urinary Retention or Obstruction Urinary Catheter Date of Insertion: 04/29/22 Urinary Catheter Time of Insertion: 19:54 Data 04/30/22 02:38 04/30/22 07:55 A&P Assessment and plan (1) Cellulitis: (2) Cardiomyopathy: (3) Encephalopathy: (4) Acute on chronic urinary retention: (5) Skin ulcer: (6) Periorbital edema of both eyes: (7) Ischemic cardiomyopathy: (8) Multiple sclerosis: Plan Patient is awaiting placement, physical deconditioning, requiring rehab He was admitted for metabolic encephalopathy related to UTI getting levofloxacin for cellulitis of lower extremities pain doxycycline Daily dressing changes wet-to-dry Kerlix with ABD twice a day Hypertensive: Added hydralazine 25 mg 3 times a day to amlodipine 10 mg daily and losartan 100 mg daily, he is also getting Lasix Bradycardia: Held Coreg Full code Continue PT Neurogenic bladder related to MS, he self caths at home Attestations Medical Necessity Statement*: Awaiting Placement Time Spent in Patient Care: 30 Coding Level of Care Code Acute Code for Chg Fwd Diagnoses Cellulitis L03.90 Cardiomyopathy I42.9 Encephalopathy G93.40 Acute on chronic urinary retention R33.9 Skin ulcer L98.499 Periorbital edema of both eyes R60.0 Ischemic cardiomyopathy I25.5 Multiple sclerosis G35
[2022-05-02] MEDS: levoFLOXacin 750 mg Tablet PO (11:44)
[2022-05-02] MEDS: acetaminophen 325 mg Tablet 650 MG PO (16:53)
[2022-05-03 00:05] VITALS: BP 176/90; PULSE 73; RESP 20; TEMP 36.6; O2SAT 99
[2022-05-03 03:24] VITALS: BP 162/96; PULSE 69; RESP 20; TEMP 36.6; O2SAT 96
[2022-05-03] MEDS: losartan 50 mg Tablet 100 MG PO (05:33)
[2022-05-03] MEDS: heparin 5,000 unit/mL INJ 1 mL 5000 UNIT SUBCUT (05:34)
[2022-05-03] MEDS: clopidogrel 75 mg Tablet PO (05:34)
[2022-05-03 08:00] VITALS: BP 167/83; PULSE 69; RESP 16; RESP 18; TEMP 36.7; O2SAT 92; O2SAT 94
--- NOTE | 2022-05-03 09:19 | PM.DCS ---
Discharge Providers Date of Admission: 04/27/22 17:05 Date of Discharge: May 03, 2022 Attending Provider at Admission: Jane Sargent MD Attending Provider at Discharge: Ted Garcia MD Primary Care Provider: Kylie Vogel Diagnoses at Discharge Discharge Diagnosis (1) Cellulitis: Status: Acute (2) Cardiomyopathy: Status: Acute (3) Encephalopathy: Status: Acute (4) Acute on chronic urinary retention: Status: Acute (5) Skin ulcer: Status: Acute (6) Periorbital edema of both eyes: Status: Acute (7) Ischemic cardiomyopathy: Status: Acute (8) Multiple sclerosis: Status: Acute Reason for Visit Reason for Visit: AMS Hospital Course Hospital Course 67-year-old male with history of multiple sclerosis, neurogenic bladder, self caths at home, lives with his significant other presented with CHF exacerbation hypertensive urgency required nitroglycerin drip, he was also diagnosed with metabolic encephalopathy related to sepsis due to UTI. He was not a candidate of septic bolus because of CHF exacerbation, he received antibiotics, lactic acid improved with above-mentioned intervention. Patient has bilateral lower extremity venous stasis dermatitis hyperemia has improved cellulitis signs not present at the time of discharge, he will receive bacitracin topical ointment for his lower extremities and levofloxacin for gram-negative rods in urine culture. He has chronic kidney disease creatinine seems around baseline. CPK improved. Patient has mixed CHF, noncompliant, threatening to leave AMA, there is plan in place to discharge him on antibiotics and have him follow-up with his PCP. He has remained afebrile, leukocytosis around 11,000. Potassium 3.3, creatinine 1.6. Good urine output in last 12 hours, metabolic encephalopathy has improved. Sepsis resolved, patient was 91% on room air, does not use oxygen at home, patient stating he was prescribed about 2 L in the past but he does not use it. Patient fell in the parking lot he was taken back to the hospital, he initially agreed for rehab however on 05/03 patient is stating that at no cost he is going to rehab for now he thinks he will be able to manage himself with help of his girlfriend at home, we will arrange home health services for wound care wet-to-dry dressing with Betadine twice a day at least Physical Exam Narrative: Patient is awake and alert, GCS 15 Nonfocal neuro exam Nonfocal neuro exam Currently on 2 L nasal cannula Abdomen distended nontender Lower extremity venous stasis dermatitis Noticeably covered with dry dressing The drainage from dressing seem to be less in quantity today, dressing is not completely soaked No audible stridor or wheezing Urinary Catheter Management: 2-way Urethral: Cath Placed During This Visit: yes Reason for Continuing Indwelling Catheter: Other Urinary Catheter Date of Insertion: 04/29/22 Urinary Catheter Time of Insertion: 19:54 Discharge Data Studies Completed and Pending Completed Studies During Hospitalization Category Date Time Status CT cervical spin wo con* [id number] Urgent Cat Scan 04/27/22 13:[address] chest abdomen pelvis [[place] [id number] Cat Scan 04/27/22 17:27 Completed ] Stat CT head wo con* [id number] Stat Cat Scan 04/27/22 13:45 Completed XR chest 1V portable [id number] Stat Exams 04/27/22 13:24 Completed CV. echo limited [id number] Stat Ultrasound 04/28/22 06:00 Completed Pending at discharge Category Date Time Status Sputum Culture and Gram Stain Stat Lab 04/27/22 17:27 Uncollected Radiology Impressions Chest X-Ray 04/27/22 13:24 IMPRESSION: 1. Cardiomegaly. 2. Hyperinflation and interstitial prominence. Cervical Spine CT 04/27/22 13:45 IMPRESSION: 1. Evaluation is limited by motion artifact. 2. While no gross evidence for acute bony injury is identified in the visualized cervical spine, repeat CT following patient sedation is recommended for definitive evaluation given the history of trauma. Head CT 04/27/22 13:45 IMPRESSION: 1. No acute post-traumatic brain injury. 2. Bilateral periorbital soft tissue swelling and orbital preseptal hematomas. 3. Additional findings as described above. Chest/Abdomen/Pelvis CT 04/27/22 17:27 IMPRESSION: 1. Mild nonspecific bilateral lung disease. Possible acute or chronic infection. Differential diagnosis includes smoking related interstitial lung disease. 2. Subcutaneous edema in the midline anterior upper chest and in both flanks. Possible contusions. No sign of significant intrathoracic injury. 3. Right lung nodules measuring up to 6 mm. For patients at low risk (minimal or absent history of smoking and of other known risk factors), no routine follow-up is indicated. For patients at high risk (history of smoking or of other known risk factors), consider optional CT Chest at 12 IMPRESSION: 1. No acute intra-abdominal findings. 2. Subcutaneous edema in both flanks. Possible contusions or edema. 3. Incidental findings above. Laboratory Results WBC 9.4 10^3/uL (4.0-10.0) 04/30/22 02:38 RBC 4.53 10^6/uL (4.1-5.3) 04/30/22 02:38 Hgb 12.2 g/dL (11.7-16.6) 04/30/22 02:38 Hct 39.6 % (42.0-52.0) L 04/30/22 02:38 MCV 87.4 fl (80-94) 04/30/22 02:38 MCH 26.9 pg (28.0-34.0) L 04/30/22 02:38 MCHC 30.8 g/dL (30.0-36.0) 04/30/22 02:38 RDW 17.2 % (12.1-15.1) H 04/30/22 02:38 Plt Count 183 10^3/cmm (130-400) 04/30/22 02:38 MPV 10.1 fL (7.4-10.4) 04/30/22 02:38 Neut % (Auto) 71.4 % 04/30/22 02:38 Lymph % (Auto) 11.7 % 04/30/22 02:38 Walsh % (Auto) 12.3 % 04/30/22 02:38 Eos % (Auto) 3.7 % 04/30/22 02:38 Baso % (Auto) 0.7 % 04/30/22 02:38 Neut # (Auto) 6.68 10^3/uL (1.8-7.7) 04/30/22 02:38 Lymph # (Auto) 1.1 10^3/uL (0.8-4.8) 04/30/22 02:38 Walsh # (Auto) 1.2 10^3/uL (0.2-0.9) H 04/30/22 02:38 Eos # (Auto) 0.4 10^3/uL (0.0-0.8) 04/30/22 02:38 Baso # (Auto) 0.1 10^3/uL (0.0-0.1) 04/30/22 02:38 Nucleated RBC % (auto) 0 % 04/30/22 02:38 Nucleated RBCs # 0.0 /100WBC 04/30/22 02:38 PT 16.30 SECONDS (12.1-14.9) H 04/27/22 13:44 INR 1.28 (0.8-1.2) H 04/27/22 13:44 Specimen Type Arterial 04/27/22 14:55 Sample Site Radial, left 04/27/22 14:55 ABG pH 7.39 (7.35-7.45) 04/27/22 14:55 ABG pCO2 46.4 mmHg (35-45) H 04/27/22 14:55 ABG pO2 66.7 mmHg (80.0-100.0) L 04/27/22 14:55 ABG HCO3 28.3 mmol/L (22-26) H 04/27/22 14:55 ABG Base Excess 2.7 mmol/L (-2.0-2.0) H 04/27/22 14:55 Adonis Test Pos 04/27/22 14:55 Hematocrit 46.2 % (42-52) 04/27/22 14:55 O2 Delivery Device Nc 04/27/22 14:55 O2 Liters/Min 2.5 % 04/27/22 14:55 FiO2 30.0 % 04/27/22 14:55 Digital Forensic Examiner ID Cak 04/27/22 14:55 Sodium 134 mmol/L (136-145) L 04/30/22 07:55 Potassium 3.6 mmol/L (3.5-5.1) 04/30/22 07:55 Chloride 94 mmol/L (98-107) L 04/30/22 07:55 Carbon Dioxide 32 mmol/L (22-29) H 04/30/22 07:55 Anion Gap 11.6 (5-19) 04/30/22 07:55 BUN 25 mg/dL (8-23) H 04/30/22 07:55 Creatinine 1.5 mg/dL (0.7-1.2) H 04/30/22 07:55 GFR Calculation 46.5 mL/min (90-130) L 04/30/22 07:55 Glucose 138 mg/dL (65-115) H 04/30/22 07:55 Calculated Osmolality 285 mOsm/kg (285-295) 04/30/22 07:55 Lactic Acid 2.7 mmol/L (0.5-2.2) H 04/28/22 13:53 Lactic Acid (Sepsis) 1.9 mmol/L (0.5-2.2) 04/28/22 16:24 Calcium 9.0 mg/dL (8.5-10.5) 04/30/22 07:55 Magnesium 2.1 mg/dL (1.7-2.3) 04/29/22 03:27 Total Bilirubin 1.0 mg/dL (0.15-1.2) 04/28/22 04:49 AST 23 U/L (0-40) 04/28/22 04:49 ALT 20 U/L (0-41) 04/28/22 04:49 Alkaline Phosphatase 124 U/L (40-130) 04/28/22 04:49 Ammonia 19 umol/L (16-60) 04/27/22 13:44 Creatine Kinase 141 U/L (39-308) 04/28/22 13:53 Troponin T Baseline 58 ng/L (0-15) H 04/27/22 13:44 Troponin T 120 Minute 55.96 ng/L (0-15) H 04/27/22 17:07 Delta Troponin T -2.04 ABS# (0-10) L 04/27/22 17:07 Troponin T Hi Sens 6Hr 64.17 ng/L (0-15) H 04/27/22 19:34 Troponin T Hi Sens 6Hr Delta 6.17 ng/L (0-12) 04/27/22 19:34 NT-Pro-B Natriuret Pep 61439 pg/mL (0-125) H 04/27/22 13:44 Total Protein 6.4 g/dL (6.6-8.7) L 04/28/22 04:49 Albumin 3.0 g/dL (3.5-5.2) L 04/28/22 04:49 Globulin 3.4 g/dL (1.3-4.6) 04/28/22 04:49 Lipase 12 U/L (13-60) L 04/27/22 13:44 Vitamin B12 654 pg/mL (232-1245) 04/29/22 03: Procalcitonin 0.11 ng/mL (0-0.5) 04/27/22 17:07 Urine Color Dark yellow (Yellow) 04/27/22 14:14 Urine Appearance Sl hazy (CLEAR) A 04/27/22 14:14 Urine pH 5 (5-7) 04/27/22 14:14 Ur Specific [place] 1.025 (1.005-1.030) 04/27/22 14:14 Urine Protein 3+ (Negative) H 04/27/22 14:14 Urine Glucose (UA) Norm (Normal) 04/27/22 14:14 Urine Ketones 1+ (Negative) H 04/27/22 14:14 Urine Blood 3+ (Negative) H 04/27/22 14:14 Urine Nitrate Negative (Negative) 04/27/22 14:14 Urine Bilirubin 1+ (Negative) H 04/27/22 14:14 Urine Urobilinogen 1 mg/dL (Negative) H 04/27/22 14:14 Ur Leukocyte Esterase 1+ (Negative) H 04/27/22 14:14 Urine RBC 5-10 /hpf (0-2) H 04/27/22 14:14 Urine WBC 25-40 /hpf (0-5) H 04/27/22 14:14 Ur Squamous Epith Cells None /hpf (0-5) 04/27/22 14:14 Amorphous Sediment Not Reportable 04/27/22 14:14 Urine Bacteria 3+ /hpf (NONE) H 04/27/22 14:14 Urine Opiates Screen Negative ng/mL (Negative) 04/27/22 14:14 Ur Barbiturates Screen Negative ng/mL (Negative) 04/27/22 14:14 Ur Phencyclidine Scrn Negative ng/mL (Negative) 04/27/22 14:14 Ur Amphetamines Screen Negative ng/mL (Negative) 04/27/22 14:14 U Benzodiazepines Scrn Negative ng/mL (Negative) 04/27/22 14:14 Urine Cocaine Screen Negative ng/mL (Negative) 04/27/22 14:14 U Marijuana (THC) Screen Negative ng/mL (Negative) 04/27/22 14:14 Vitals Last Vital Signs Temp 98.1 F 05/03/22 08:00 Pulse 69 05/03/22 08:00 Resp 18 01/27/23 08:00 BP 167/83 05/03/22 08:00 Pulse Ox 92 05/03/22 08:00 O2 Del Method 05/03/22 08:00 O2 Flow Rate 4 05/03/22 08:00 Discharge Plan Discharge Patient Disposition: Home Condition: Stable Prescriptions: New levofloxacin 750 mg tablet 750 mg PO DAILY 14 Days Qty: 14 0RF bacitracin 500 unit/gram ointment 1 applic topical Q8H Qty: 14 0RF hydralazine 25 mg tablet 25 mg PO TID Qty: 90 2RF aspirin 81 mg tablet,delayed release (DR/EC) 81 mg PO DAILY Qty: 30 2RF Continued nitroglycerin 0.4 mg tablet, sublingual 0.4 mg SUBLINGUAL Q5M PRN (Reason: chest pain) Qty: 30 4RF Rx Instructions: until response; do not exceed 3 doses per episode losartan 100 mg tablet 100 mg PO QAM atorvastatin 40 mg tablet 40 mg PO QPM carvedilol 6.25 mg Tablet 12.5 mg PO BID@0900,2100 Qty: 180 0RF clopidogrel 75 mg tablet 75 mg PO QAM Qty: 90 0RF amlodipine 5 mg Tablet 10 mg PO DAILY Qty: 90 0RF furosemide 40 mg tablet 40 mg PO BID potassium chloride 10 mEq tablet extended release 10 meq PO DAILY Discharge Orders: Discharge Order (Routine); Ordered 05/03/22 Ordered By: Ted Garcia Other Ambulatory Orders: NM joshua perf SPECT stress [id number] (Routine) Timeframe: 1 Week Facility: [facility] - Location: Radiology Ordered By: Ted Garcia DME: Oxygen (Order) Location: None Selected Ordered By: Ted Garcia Referrals: [facility] [place] [Outside] Parish Lea M.D [Physician] - 2 weeks Kylie Vogel [Primary Care Provider] - Discharge Diet: Cardiac Discharge Activity: As per PT/OT instructions Patient Instructions: Bacitracin/Neomycin/Polymyxin B (On the skin), Hydralazine (By mouth), Levofloxacin (By mouth), Urinary Retention in Men (GEN), Encephalopathy (DC), Opioid Safety Discharge Attestations Time Spent in Discharge Care*: less than 30 min Quality Metrics Clinical Quality Measures [ No reported AMI, CVA or VTE this stay] Coding Level of Care Code Acute Chg FW DC note Diagnoses Cellulitis L03.90 Cardiomyopathy I42.9 Encephalopathy G93.40 Acute on chronic urinary retention R33.9 Skin ulcer L98.499 Periorbital edema of both eyes R60.0 Ischemic cardiomyopathy I25.5 Multiple sclerosis G35
[2022-05-03] MEDS: potassium chloride ER 10 mEq Tablet PO (09:44)
[2022-05-03] MEDS: nicotine 14 mg Patch 1 PATCH TRANSDERMA (09:44)
[2022-05-03] MEDS: hyDRALAzine 25 mg Tablet PO (09:46)
[2022-05-03] MEDS: pantoprazole DR 40 mg Tablet PO (09:46)
[2022-05-03] MEDS: FUROsemide 40 mg Tablet PO (09:46)
[2022-05-03] MEDS: amlodipine 10 mg Tablet PO (09:46)
[2022-05-03] MEDS: doxycycline 100 mg Tablet PO (09:46)
[2022-05-03 09:57] VITALS: O2SAT 85; O2SAT 93
--- NOTE | 2022-05-03 12:57 | PC.NURSE ---
Discharge: Mr. Coleman refused home O2 when Home brought it to his room. I was informed that he had previously (29 Apr 2022) refused an earlier attempt by Home to deliver oxygen to his room in the ICU. Case management was apprised of the situation and did everything they could to ensure Home was available today prior to discharge for a second attempt at sending Mr. Coleman home with O2. Mr. Coleman comported himself with some level of vulgarity and crassness towards the staff responsible for his care. PT did not appear to be in any physiological distress at the time of discharge.
== END 2022-05-03 13:00 | disposition home health service (06) | DRG 871 ==
LOC: ER 16:49 → ER IP 17:50 → ICU 20:22 → MEDSURG 04-30 02:15
PROVIDERS: Admitting Provider Internal Medicine; Emergency Provider Emergency Medicine; PCP Registered Nurse; Visit Provider Internal Medicine
DX: A41.59 Other Gram-negative sepsis (principal); G93.41 Metabolic encephalopathy; I50.23 Acute on chronic systolic (congestive) heart failure; N39.0 Urinary tract infection, site not specified; I13.0 Hypertensive heart and chronic kidney disease with heart failure and stage 1 through stage 4 chronic kidney disease, or unspecified chronic kidney disease; L03.116 Cellulitis of left lower limb; L03.115 Cellulitis of right lower limb; Z68.41 Body mass index [BMI] 40.0-44.9, adult; M62.82 Rhabdomyolysis; N17.9 Acute kidney failure, unspecified; B96.1 Klebsiella pneumoniae [K. pneumoniae] as the cause of diseases classified elsewhere; G35 Multiple sclerosis; N31.9 Neuromuscular dysfunction of bladder, unspecified; N18.9 Chronic kidney disease, unspecified; I16.0 Hypertensive urgency; Z79.02 Long term (current) use of antithrombotics/antiplatelets; I25.2 Old myocardial infarction; E78.5 Hyperlipidemia, unspecified; R33.9 Retention of urine, unspecified; R29.6 Repeated falls; R22.0 Localized swelling, mass and lump, head; L89.891 Pressure ulcer of other site, stage 1; E66.01 Morbid (severe) obesity due to excess calories; R68.0 Hypothermia, not associated with low environmental temperature; F17.210 Nicotine dependence, cigarettes, uncomplicated; Z86.73 Personal history of transient ischemic attack (TIA), and cerebral infarction without residual deficits; I25.5 Ischemic cardiomyopathy; I25.10 Atherosclerotic heart disease of native coronary artery without angina pectoris; Z95.5 Presence of coronary angioplasty implant and graft
CPT/HCPCS: 36415; 36600; 51702; 70450; 71045; 71250; 72125; 74176; 80048; 80053; 80306; 81001; 82140; 82550; 82607; 82803; 83605; 83690; 83735; 83880; 84145; 84484; 85025; 85610; 87040; 87077; 87086; 87186; 93005; 93308; 94640; 94760; 96365; 96372; 96375; 97110; 97161; 97530; 99285; C9113; J1644; J1940; J2543; J3370; J3490; J7050; J7613; J7644

== ENCOUNTER 2022-06-20 22:32 | Emergency (ER) | payer MEDICARE, SELFPAY ==
[2022-06-20 22:46] VITALS: BP 192/103; PULSE 85; RESP 18; TEMP 37.1; O2SAT 92; BMI 41.8
--- NOTE | 2022-06-20 23:19 | ED_ITS ---
Documented by User: BEBETO Damico 06/21/22 02:28 HPI - Extremity Problem General: Chief complaint: Extremity Injury, Upper Stated complaint: RIGHT ARM/NECK PAIN Time Seen by Provider: 06/20/22 22:57 History of Present Illness: Patient arrived today via EMS for chronic neck, back, arm pain on the right side. He reports that this pain he has had for years it just fluctuates in intensity. He reports that movement makes it worse. He states that he has not had any new injuries. He denies that he has any chest pain, shortness of breath. He has been taking [id number] Tylenol and NSAIDs with no relief. Associated symptoms: Deny chest pain or fever(s) Review of Systems Const: Denies: fever(s) or chills Card: Reports: swelling of feet/ankles (Reports this is chronic-current antibiotic treatment for cellulitis BLE); Denies: chest pain, palpitations or irregular heart rhythm Resp: Reports: dyspnea (Reports chronic shortness of breath with activity and dropping O2 sat) GI: Denies: abdominal pain, nausea or vomiting Musc: Reports: neck pain, back pain and extremity pain PFS ED PFSH: Medical History Acute on chronic renal failure Acute on chronic urinary retention Cardiomyopathy Cellulitis CHF (congestive heart failure) Chronic kidney disease Coronary artery disease Encephalopathy Falls frequently History of non-ST elevation myocardial infarction (NSTEMI) HTN (hypertension) Hyperlipidemia Hypothermia Ischemic cardiomyopathy Lactic acidosis Lacunar infarction Multiple sclerosis Multiple sclerosis Multiple sclerosis Periorbital edema of both eyes Skin ulcer Tobacco dependency Troponin level elevated Urinary retention Surgical History History of esophagogastroduodenoscopy (EGD) Hx of colonoscopy with polypectomy Hx of heart artery stent stents x 2017- unknown vessels Family History Sister Heart disease Hypertension Myocardial infarction Mother Cancer Daughter Myocardial infarction Social History Smoking and tobacco status: current every day smoker cigarettes Packs smoked per day: 0.5 [ Other cigarette details: Cutting down] Alcohol intake: never Adopted: No Caregiver/support person: No Lives independently: No Marital status: Single Physical Exam Const: COMMON NORMALS: no acute distress, patient oriented x3 and alert OTHER: Patient is alert. He is demanding with nursing staff but redirectable. Patient is noted to drop his oxygen saturations whenever he is sleeping. He states that he has sleep apnea and he has chosen to never have this addressed or treated. He states that he does not want further address of this today. He advised he only wants treated for his neck and back pain. Neck/C-Spine: COMMON NORMALS: no JVD OTHER: No vertebral point tenderness of the cervical spine appreciated. No obvious bony or soft tissue deformity appreciated. Point tenderness to soft tissue right side trapezius muscle around the right side scapula. Palpation of this area reproduces pain complaint. Resp: OTHER: Patient respirations are even and nonlabored and lung sounds are clear bilateral lobes. Patient SPO2 drops down to 88% when he is sleeping. Patient refuses further evaluation and states this is his baseline oxygenation. Cardio: COMMON NORMALS: no JVD, regular rate and regular rhythm RATE: regular rate RHYTHM: regular rhythm Extremity: OTHER: Bilateral lower extremity edema with orange peel texture ready discoloration weeping. There are wraps in place that are saturated and serous fluid. Patient reports that he is being treated by his doctor and [facility] for this and is currently on antibiotic Neuro: COMMON NORMALS: patient oriented x3 SENSORIUM/ORIENTATION: Yes alert Course Vital Signs: Vital signs: Vital Signs Temperature 98.7 F 06/20/22 22:46 Pulse Rate 85 06/20/22 22:46 Respiratory Rate 18 06/20/22 22:46 Blood Pressure 192/103 06/20/22 22:46 Pulse Oximetry 90 06/21/22 00:45 Oxygen Delivery Me thod 06/20/22 22:46 MDM - Extremity (Nontraumatic) Medical Decision Making Patient is in tonight for neck, back, arm pain that is chronic. He states that this is the same pain he always has just intensified over the past couple of days. He denies any new injury. Physical exam is consistent with spasm and tension of the right trapezius muscle with reproducible pain on palpation of the trapezius. Patient is also noted to have what appears to be sleep apnea with decreased oxygen saturation when he is sleeping down to 8788% on room air. Patient refuses further address of this tonight. Patient is also noted to have bilateral lower extremities with franco discoloration and edema with serous weeping drainage. He reports that this is under current evaluation and management by his provider and [facility] and he is currently on antibiotics. Patient wishes to not have anything else addressed tonight except for his arm neck and back pain. We will treat patient with small dose of baclofen muscle relaxant medication for home use. Pharmacies are already closed patient is given 1 dose of hydrocodone in here tonight to help bring pain down to a tolerable level. Discussed conservative treatments at home. Follow-up with primary care provider. Return to the ER for new or worsening symptoms Discharge Plan Discharge Patient Disposition: Home Clinical Impression: Trapezius muscle spasm Condition: Stable Prescriptions: New baclofen 10 mg tablet 5 mg PO Q8H PRN (Reason: muscle spasm) Qty: 7 0RF No Action nitroglycerin 0.4 mg tablet, sublingual 0.4 mg SUBLINGUAL Q5M PRN (Reason: chest pain) Qty: 30 4RF Rx Instructions: until response; do not exceed 3 doses per episode losartan 100 mg tablet 100 mg PO QAM atorvastatin 40 mg tablet 40 mg PO QPM carvedilol 6.25 mg Tablet 12.5 mg PO BID@0900,2100 Qty: 180 0RF clopidogrel 75 mg tablet 75 mg PO QAM Qty: 90 0RF amlodipine 5 mg Tablet 10 mg PO DAILY Qty: 90 0RF furosemide 40 mg tablet 40 mg PO BID potassium chloride 10 mEq tablet extended release 10 meq PO DAILY bacitracin 500 unit/gram ointment 1 applic topical Q8H Qty: 14 0RF hydralazine 25 mg tablet 25 mg PO TID Qty: 90 2RF aspirin 81 mg tablet,delayed release (DR/EC) 81 mg PO DAILY Qty: 30 2RF Discharge Orders: Discharge ED (Routine); Ordered 06/20/22 Ordered By: Antonette Gill Referrals: Kylie Vogel [Primary Care Provider] - Discharge Diet: Usual diet Discharge Activity: Increase activity as tolerated Patient Instructions: Muscle Spasm (ED) Activity Restrictions/Additional Instructions: I recommend warm moist compresses to the area, gentle stretching, gentle massage. You may start the muscle relaxant medication tomorrow. Do not take any other medication that makes you sleepy with this medicine. Do not drive after taking the muscle relaxant medication. Continue follow-up with your primary care provider for continued management of your swelling in your lower extremities. I recommend you have further evaluation for possible sleep apnea. No further testing was done for your oxygenation here as you did not want that at this time, but I think you should have further evaluation of this issue. Return to the emergency department as needed for new or worsening symptoms. Coding Level of Care Code ED Drag Car Racer for Chg Fwd Documented by User: Bulmaro Rhodes DO 06/21/22 07:06 HPI - Extremity Problem General: Chief complaint: Extremity Injury, Upper Stated complaint: RIGHT ARM/NECK PAIN Time Seen by Provider: 06/20/22 22:57 PFSH ED PFSH: Medical History Acute on chronic renal failure Acute on chronic urinary retention Cardiomyopathy Cellulitis CHF (congestive heart failure) Chronic kidney disease Coronary artery disease Encephalopathy Falls frequently History of non-ST elevation myocardial infarction (NSTEMI) HTN (hypertension) Hyperlipidemia Hypothermia Ischemic cardiomyopathy Lactic acidosis Lacunar infarction Multiple sclerosis Multiple sclerosis Multiple sclerosis Periorbital edema of both eyes Skin ulcer Tobacco dependency Troponin level elevated Urinary retention Surgical History History of esophagogastroduodenoscopy (EGD) Hx of colonoscopy with polypectomy Hx of heart artery stent stents x 2017- unknown vessels Family History Sister Heart disease Hypertension Myocardial infarction Mother Cancer Daughter Myocardial infarction Social History Smoking and tobacco status: current every day smoker cigarettes Packs smoked per day: 0.5 [ Other cigarette details: Cutting down] Alcohol intake: never Adopted: No Caregiver/support person: No Lives independently: No Marital status: Single Course Vital Signs: Vital signs: Vital Signs Temperature 98.7 F 03/16/23 22:46 Pulse Rate 85 06/20/22 22:46 Respiratory Rate 18 06/20/22 22:46 Blood Pressure 192/103 06/20/22 22:46 Pulse Oximetry 90 06/21/22 00:45 Oxygen Delivery Me thod 06/20/22 22:46 MDM - Extremity (Nontraumatic) Medical Decision Making Patient is in tonight for neck, back, arm pain that is chronic. He states that this is the same pain he always has just intensified over the past couple of days. He denies any new injury. Physical exam is consistent with spasm and tension of the right trapezius muscle with reproducible pain on palpation of the trapezius. Patient is also noted to have what appears to be sleep apnea with decreased oxygen saturation when he is sleeping down to 8788% on room air. More ent refuses further address of this tonight. Patient is also noted to have bilateral lower extremities with franco discoloration and edema with serous weeping drainage. He reports that this is under current evaluation and management by his provider and [facility] and he is currently on antibiotics. Patient wishes to not have anything else addressed tonight except for his arm neck and back pain. We will treat patient with small dose of baclofen muscle relaxant medication for home use. Pharmacies are already closed patient is given 1 dose of hydrocodone in here tonight to help bring pain down to a tolerable level. Discussed conservative treatments at home. Follow-up with primary care provider. Return to the ER for new or worsening symptoms Chart reviewed and patient discussed with midlevel. Agree with assessment and plan. Discharge Plan Discharge Patient Disposition: Home Clinical Impression: Trapezius muscle spasm Condition: Stable Prescriptions: New baclofen 10 mg tablet 5 mg PO Q8H PRN (Reason: muscle spasm) Qty: 7 0RF No Action nitroglycerin 0.4 mg tablet, sublingual 0.4 mg SUBLINGUAL Q5M PRN (Reason: chest pain) Qty: 30 4RF Rx Instructions: until response; do not exceed 3 doses per episode losartan 100 mg tablet 100 mg PO QAM atorvastatin 40 mg tablet 40 mg PO QPM carvedilol 6.25 mg Tablet 12.5 mg PO BID@0900,2100 Qty: 180 0RF clopidogrel 75 mg tablet 75 mg PO QAM Qty: 90 0RF amlodipine 5 mg Tablet 10 mg PO DAILY Qty: 90 0RF furosemide 40 mg tablet 40 mg PO BID potassium chloride 10 mEq tablet extended release 10 meq PO DAILY bacitracin 500 unit/gram ointment 1 applic topical Q8H Qty: 14 0RF hydralazine 25 mg tablet 25 mg PO TID Qty: 90 2RF aspirin 81 mg tablet,delayed release (DR/EC) 81 mg PO DAILY Qty: 30 2RF Discharge Orders: Discharge ED (Routine); Ordered 06/20/22 Ordered By: Antonette Gill Referrals: Kylie Vogel [Primary Care Provider] - Discharge Diet: Usual diet Discharge Activity: Increase activity as tolerated Patient Instructions: Muscle Spasm (ED) Activity Restrictions/Additional Instructions: I recommend warm moist compresses to the area, gentle stretching, gentle massage. You may start the muscle relaxant medication tomorrow. Do not take any other medication that makes you sleepy with this medicine. Do not drive after taking the muscle relaxant medication. Continue follow-up with your primary care provider for continued management of your swelling in your lower extremities. I recommend you have further evaluation for possible sleep apnea. No further testing was done for your oxygenation here as you did not want that at this time, but I think you should have further evaluation of this issue. Return to the emergency department as needed for new or worsening symptoms. Coding Level of Care Code ED Drag Car Racer for Kathryn Olmstead
[2022-06-21] MEDS: HYDROcodone-acetaminophen 5-325 mg Tablet 1 TAB PO (00:19)
[2022-06-21 00:45] VITALS: O2SAT 90
== END 2022-06-21 00:46 | disposition home or self-care (01) ==
PROVIDERS: Emergency Provider Nurse Practitioner Family; PCP Registered Nurse
DX: M62.830 Muscle spasm of back (principal); Z79.82 Long term (current) use of aspirin; Z79.02 Long term (current) use of antithrombotics/antiplatelets; F17.210 Nicotine dependence, cigarettes, uncomplicated; I13.0 Hypertensive heart and chronic kidney disease with heart failure and stage 1 through stage 4 chronic kidney disease, or unspecified chronic kidney disease; N18.9 Chronic kidney disease, unspecified; I50.9 Heart failure, unspecified; I25.10 Atherosclerotic heart disease of native coronary artery without angina pectoris; I25.2 Old myocardial infarction; E78.5 Hyperlipidemia, unspecified; I05.0 Rheumatic mitral stenosis
CPT/HCPCS: 99283

== ENCOUNTER 2022-06-21 13:48 | Emergency (ER) | payer MEDICARE, SELFPAY ==
[2022-06-21] VITALS (57 sets, daily range): BP systolic 117–178; BP diastolic 73–121; PULSE 63–88; RESP 9–21; O2SAT 84–99; BMI 40.4
--- NOTE | 2022-06-21 14:19 | XR_ITS ---
WS: [id number] XR chest 1V portable [id number] REASON FOR EXAM: ams FINDINGS: The chest appears unchanged compared to the previous examination of 04/27/2022. There is significant cardiomegaly and central vascular congestion. There are chronic interstitial shane g opacities no definite pulmonary edema. No pleural effusions. XR/XR chest 1V portable [id number] IMPRESSION: Stable abnormal chest with no acute acute abnormality identified.
--- NOTE | 2022-06-21 14:20 | W.ED.GENADLT ---
HPI - General Adult General: Chief complaint: Extremity Injury, Lower Stated complaint: BILATERAL LEG PAIN Time Seen by Provider: 06/21/22 13:56 Source: patient Mode of arrival: EMS Limitations: no limitations History of Present Illness: Patient is a 67-year-old male with a history of MS, congestive heart failure, neurogenic bladder, CKD, CAD, and hyperlipidemia here for complaints of pain everywhere . When asked to be more specific he states he has pain in his legs. He states they are chronically swollen and weeping. Patient was seen here yesterday for nonspecific pain complaints as well. He appears to be very noncompliant. He arrived to the ED satting at 85% on room air. Patient tells me he has a history of congestive heart failure and sleep apnea and is supposed to be on oxygen at home but states he does not have any. He cannot remember the last time he saw his terminal computer operator. He does report taking his furosemide daily. I spoke to patient's significant other and she is concerned for sepsis as patient has been having delusions at home. Associated symptoms: Reports dyspnea; Deny chest pain, palpitations, syncope or vomiting Review of Systems Const: Denies: fever(s) or chills Card: Reports: edema and swelling of feet/ankles; Denies: chest pain, palpitations, irregular heart rhythm, lightheadedness, syncope or pre-syncope Resp: Reports: dyspnea; Denies: wheezing or hemoptysis GI: Denies: abdominal pain, vomiting or diarrhea : Reports: other (self caths); Denies: flank pain or hematuria Musc: Reports: other (reports pain everywhere ) PFS ED PFSH: Medical History Acute on chronic renal failure Acute on chronic urinary retention Cardiomyopathy Cellulitis CHF (congestive heart failure) Chronic kidney disease Coronary artery disease Encephalopathy Falls frequently History of non-ST elevation myocardial infarction (NSTEMI) HTN (hypertension) Hyperlipidemia Hypothermia Ischemic cardiomyopathy Lactic acidosis Lacunar infarction Multiple sclerosis Multiple sclerosis Multiple sclerosis Periorbital edema of both eyes Skin ulcer Tobacco dependency Troponin level elevated Urinary retention Surgical History History of esophagogastroduodenoscopy (EGD) Hx of colonoscopy with polypectomy Hx of heart artery stent stents x , 2018- unknown vessels Family History Sister Heart disease Hypertension Myocardial infarction Mother Cancer Daughter Myocardial infarction Social History Smoking and tobacco status: current every day smoker cigarettes Packs smoked per day: 0.5 [ Other cigarette details: Cutting down] Alcohol intake: never Adopted: No Caregiver/support person: No Lives independently: No Marital status: Single Physical Exam Const: COMMON NORMALS: patient oriented x3 and alert GENERAL APPEARANCE: cooperative NUTRITIONAL APPEARANCE: obese ORIENTATION/CONSCIOUSNESS: Yes awake, Yes oriented to person, Yes oriented to place and Yes oriented to time OTHER: chronically ill appearing, very de-conditioned HENMT: COMMON NORMALS: normocephalic and atraumatic HEAD & SCALP: normal to inspection, normocephalic and atraumatic Eye: COMMON NORMALS: no scleral icterus GENERAL EYE: appearance normal, both eyes and all related structures Neck/C-Spine: COMMON NORMALS: full ROM, no lymphadenopathy, no meningeal signs and no JVD Chest: COMMONS NORMALS: normal inspection of the chest and normal palpation of entire chest wall Resp: COMMON NORMALS: normal respiratory effort AUSCULTATION: crackles OTHER: requiring 2L oxygen Cardio: COMMON NORMALS: no JVD, regular rate and regular rhythm RATE: regular rate RHYTHM: regular rhythm GI: COMMON NORMALS: Normal to inspection, nondistended, normoactive bowel sounds present, Soft to palpation and non-tender PALPATION: Yes Soft to palpation Extremity: NARRATIVE EXTREMITY EXAM: bilateral symmetrical pitting edema, weeping lymphedema, chronic venous stasis skin changes GENERAL: Yes normal exam except as noted Neuro: MARIANNE COMA SCALE: document GCS findings [place] coma scale eye opening: Spontaneous [place] coma scale verbal response: Orientated [place] coma scale motor response: Obey commands Marianne coma scale total score: 15 COMMON NORMALS: patient oriented x3, moves all extremities, no focal motor deficits and no sensory deficits noted SENSORIUM/ORIENTATION: Yes alert, Yes oriented to person, Yes oriented to place and Yes oriented to time MENINGEAL SIGNS: Yes no meningeal signs GAIT: Yes Unable to assess gait OTHER: pt states he normally is not ambulatory secondary to leg weakness from his MS Course Vital Signs: Vital signs: Vital Signs Pulse Rate 70 06/21/22 18:15 Respiratory Rate 16 06/21/22 18:15 Blood Pressure 178/121 06/21/22 18:25 Pulse Oximetry 99 06/21/22 18:15 Oxygen Delivery Me thod 06/21/22 14:10 Oxygen Flow Rate 2 06/21/22 16:52 MDM - General Adult Medical Decision Making Patient is very noncompliant 67-year-old male. He is here for nonspecific pain complaints that have been present over the past several years. Blood work overall is consistent with his chronic kidney disease and congestive heart failure. His BNP is over 14,000. His CXR shows cardiomegaly and pulmonary congestion but overall is stable. Clinically he does appear fluid overloaded. UA does show a UTI. Patient has a neurogenic bladder and self caths. Ultimately I recommended patient stay for hospitalization as he is acutely hypoxic probably secondary to acute on chronic CHF. Significant other also had some concerns for some delusions at home. This certainly could be secondary to his UTI although some hypercapnia is a possibility as well. Patient has been alert and oriented here and is adamant he would like to go home. He is rude and demanding at times stating all he wants is more coffee. Ultimately he is his own guardian and I cannot keep him here. I did go ahead and place a referral for case management to get him set up with cardiology as well as wound care. I urged him to talk to his primary care provider (significant other states he will never go to his doctor appointments). Patient will be sent home with home O2. Lab Data 06/21/22 14:45 06/21/22 14:45 Radiology Impressions Chest X-Ray 06/21/22 14:19 IMPRESSION: Stable abnormal chest with no acute acute abnormality identified. Laboratory Results WBC 10.6 10^3/uL (4.0-10.0) H 06/21/22 14:45 RBC 5.34 10^6/uL (4.1-5.3) H 06/21/22 14:45 Hgb 13.6 g/dL (11.7-16.6) 06/21/22 14:45 Hct 45.8 % (42.0-52.0) 06/21/22 14:45 MCV 85.8 fl (80-94) 06/21/22 14:45 MCH 25.5 pg (28.0-34.0) L 06/21/22 14:45 MCHC 29.7 g/dL (30.0-36.0) L 06/21/22 14:45 RDW 20.0 % (12.1-15.1) H 06/21/22 14:45 Plt Count 303 10^3/cmm (130-400) 06/21/22 14:45 MPV 9.7 fL (7.4-10.4) 06/21/22 14:45 Neut % (Auto) 77.5 % 06/21/22 14:45 Lymph % (Auto) 9.4 % 06/21/22 14:45 [place] % (Auto) 9.8 % 06/21/22 14:45 Eos % (Auto) 2.2 % 06/21/22 14:45 Baso % (Auto) 0.7 % 06/21/22 14:45 Neut # (Auto) 8.19 10^3/uL (1.8-7.7) H 06/21/22 14:45 Lymph # (Auto) 1.0 10^3/uL (0.8-4.8) 06/21/22 14:45 [place] # (Auto) 1.0 10^3/uL (0.2-0.9) H 06/21/22 14:45 Eos # (Auto) 0.2 10^3/uL (0.0-0.8) 06/21/22 14:45 Baso # (Auto) 0.1 10^3/uL (0.0-0.1) 06/21/22 14:45 Nucleated RBC % (auto) 0 % 06/21/22 14:45 Nucleated RBCs # 0.0 /100WBC 06/21/22 14:45 Sodium 137 mmol/L (136-145) 06/21/22 14:45 Potassium 4.9 mmol/L (3.5-5.1) 06/21/22 14:45 Chloride 97 mmol/L (98-107) L 06/21/22 14:45 Carbon Dioxide 28 mmol/L (22-29) 06/21/22 14:45 Anion Gap 16.9 (5-19) 06/21/22 14:45 BUN 18 mg/dL (8-23) 06/21/22 14:45 Creatinine 1.3 mg/dL (0.7-1.2) H 06/21/22 14:45 GFR Calculation 54.9 mL/min (90-130) L 06/21/22 14:45 Glucose 111 mg/dL (65-115) 06/21/22 14:45 Calculated Osmolality 287 mOsm/kg (285-295) 06/21/22 14:45 Calcium 9.1 mg/dL (8.5-10.5) 06/21/22 14:45 Total Bilirubin 0.7 mg/dL (0.15-1.2) 06/21/22 14:45 AST 21 U/L (0-40) 06/21/22 14:45 ALT 18 U/L (0-41) 06/21/22 14:45 Alkaline Phosphatase 148 U/L (40-130) H 06/21/22 14:45 NT-Pro-B Natriuret Pep 71266 pg/mL (0-125) H 06/21/22 14:45 Total Protein 7.7 g/dL (6.6-8.7) 06/21/22 14:45 Albumin 3.3 g/dL (3.5-5.2) L 06/21/22 14:45 Globulin 4.4 g/dL (1.3-4.6) 06/21/22 14:45 Urine Color Dark yellow (Yellow) 06/21/22 15:12 Urine Appearance Cloudy (CLEAR) A 06/21/22 15:12 Urine pH 5 (5-7) 06/21/22 15:12 Ur Specific [place] 1.025 (1.005-1.030) 06/21/22 15:12 Urine Protein 3+ (Negative) H 06/21/22 15:12 Urine Glucose (UA) Norm (Normal) 06/21/22 15:12 Urine Ketones 1+ (Negative) H 06/21/22 15:12 Urine Blood 2+ (Negative) H 06/21/22 15:12 Urine Nitrate Negative (Negative) 06/21/22 15:12 Urine Bilirubin Neg (Negative) 06/21/22 15:12 Urine Urobilinogen Neg mg/dL (Negative) 06/21/22 15:12 Ur Leukocyte Esterase 2+ (Negative) H 06/21/22 15:12 Urine RBC 10-15 /hpf (0-2) H 06/21/22 15:12 Urine WBC 25-40 /hpf (0-5) H 06/21/22 15:12 Ur Squamous Epith Cells None /hpf (0-5) 06/21/22 15:12 Amorphous Sediment Not Reportable 06/21/22 15:12 Urine Bacteria 4+ /hpf (NONE) H 06/21/22 15:12 Urine Mucus 2+ /hpf 06/21/22 15:12 Discharge Plan Discharge Patient Disposition: Home Clinical Impression: Acute cystitis, Lymphedema Chronic CHF Qualifiers: Heart failure type: unspecified Qualified Code(s): I50.9 - Heart failure, unspecified Condition: Stable Prescriptions: New cephalexin 500 mg capsule 500 mg PO Q6H 7 Days Qty: 28 0RF No Action nitroglycerin 0.4 mg tablet, sublingual 0.4 mg SUBLINGUAL Q5M PRN (Reason: chest pain) Qty: 30 4RF Rx Instructions: until response; do not exceed 3 doses per episode losartan 100 mg tablet 100 mg PO QAM atorvastatin 40 mg tablet 40 mg PO QPM carvedilol 6.25 mg Tablet 12.5 mg PO BID@0900,2100 Qty: 180 0RF clopidogrel 75 mg tablet 75 mg PO QAM Qty: 90 0RF furosemide 40 mg tablet 40 mg PO BID potassium chloride 10 mEq tablet extended release 10 meq PO DAILY hydralazine 25 mg tablet 25 mg PO TID Qty: 90 2RF aspirin 81 mg tablet,delayed release (DR/EC) 81 mg PO DAILY Qty: 30 2RF baclofen 10 mg tablet 5 mg PO Q8H PRN (Reason: muscle spasm) Qty: 7 0RF Discharge Orders: Discharge ED (Routine); Ordered 06/21/22 Ordered By: Mari Li Other Ambulatory Orders: DME: Oxygen (Order) Location: None Selected Ordered By: Mari Li Referrals: Kylie Vogel [Primary Care Provider] - Activity Restrictions/Additional Instructions: As we discussed I have recommended hospitalization as you are requiring oxygen and appears to be in decompensated heart failure. You have adamantly refused hospitalization. I will send you home with home oxygen as you are saturations were low here. I have placed a referral with case management to get you urgent follow-up with your terminal computer operator. I have also placed a referral with wound care to help with your lower extremity weeping/lymphedema/ulcers. Your UA today looks suspicious for a urinary tract infection. You were given IM antibiotics prior to discharge and I am placing you on oral cephalexin. You need to fill this antibiotic and started immediately. Again I have stressed the importance and my recommendation for hospitalization but you have refused. Coding Level of Care Code ED Ventilating Engineer for Kathryn Olmstead
[2022-06-21 14:54] LABS: Basophils # 0.1 10^3/uL (0.0-0.1); Basophils % 0.7 %; Eosinophils # 0.2 10^3/uL (0.0-0.8); Eosinophils % 2.2 %; Hematocrit 45.8 % (42.0-52.0); Hemoglobin 13.6 g/dL (11.7-16.6); Lymphocytes % 9.4 %; Mean Corpuscular HGB Conc 29.7 g/dL (30.0-36.0); Mean Corpuscular Hemoglobin 25.5 pg (28.0-34.0); Mean Corpuscular Volume 85.8 fl (80-94); Mean Platelet Volume 9.7 fL (7.4-10.4); Monocytes % 9.8 %; Neutrophils # 8.19 10^3/uL (1.8-7.7); Neutrophils % 77.5 %; Nucleated Red Blood Cells % 0 %; Platelet Count 303 10^3/cmm (130-400); Red Blood Count 5.34 10^6/uL (4.1-5.3); White Blood Count 10.6 10^3/uL (4.0-10.0)
[2022-06-21 15:24] LABS: Alanine Aminotransferase 18 U/L (0-41); Albumin Level 3.3 g/dL (3.5-5.2); Alkaline Phosphatase 148 U/L (40-130); Anion Gap 16.9 (5-19); Aspartate Amino Transferase 21 U/L (0-40); Blood Urea Nitrogen 18 mg/dL (8-23); Calcium 9.1 mg/dL (8.5-10.5); Carbon Dioxide 28 mmol/L (22-29); Chloride 97 mmol/L (98-107); Globulin 4.4 g/dL (1.3-4.6); Glomerular Filtration Rate 54.9 mL/min (90-130); Glucose 111 mg/dL (65-115); NT Pro B Type Natriuretic Pept 14487 pg/mL (0-125); Osmolality Calculated 287 mOsm/kg (285-295); Potassium 4.9 mmol/L (3.5-5.1); Sodium 137 mmol/L (136-145); Total Bilirubin 0.7 mg/dL (0.15-1.2); Total Protein 7.7 g/dL (6.6-8.7)
[2022-06-21 16:11] LABS: Add Urine Microscopic? YES; Bacteria Urine 4+ /hpf; Bilirubin Urine Neg (Negative); Blood Urine 2+ (Negative); Glucose Urine UA Norm (Normal); Ketones Urine 1+ (Negative); Leukocyte Esterase Urine 2+ (Negative); Mucus Urine 2+ /hpf; Nitrate Urine Negative (Negative); Protein Urine 3+ (Negative); Specific Gravity, Urine 1.025 (1.005-1.030); Urine Appearance Cloudy (CLEAR); Urine Color Dark Yellow (Yellow); Urobilinogen Urine Neg (Negative); WBC Urine 25-40 /hpf (0-5); pH Urine 5 (5-7)
[2022-06-21 16:12] LABS: Add Urine Culture? Yes
[2022-06-21] MEDS: cefTRIAXone 1,000 MG in water for injection-sterile 2.1 ML 1 MG IM (16:58)
--- NOTE | 2022-06-24 11:16 | DCPLANNER ---
Addendum entered by Ragini Timmons 06/27/22 09:25: branch store manager received the following message from [facility] regarding follow up appointment: On 06/26/22 @ 10:24 Sangita Nolen Wrote To [facility] Front Office Attempted to call patient. Left vm to call back. On 06/25/22 @ 16:05 Sangita Nolen Wrote To [facility] Front Office Attempted to call patient. Left vm to call back. On 06/25/22 @ 11:11 Sangita Nolen Wrote To [facility] Front Office Put with Dr. Arana work in Original Note: branch store manager had message to schedule a follow up appointment for patient with cardiology. branch store manager sent patients information to the front office staff at [facility]. Patients information will be printed and reviewed. Clinic will call patient with appointment information.
--- NOTE | 2022-06-24 11:19 | DCPLANNER ---
Addendum entered by Ragini Timmons 06/25/22 08:08: production team manager received the following message from the Wound Care clinic regarding follow up appointment: see below :) On 06/24/22 @ 14:32 Lorrie Ramirez Wrote To Wound Front Office pt refused an appt at this time. Thanks On 06/24/22 @ 11:33 Lorrie Ramirez Wrote To Wound Front Office left pt a voicemail to call for an appt time and date. Thank you Original Note: production team manager had message to schedule a follow up appointment for patient with wound care. production team manager sent patients information to the front office staff at wound care. Patients information will be printed and reviewed. Clinic will call patient with appointment information.
== END 2022-06-21 19:07 | disposition home or self-care (01) ==
PROVIDERS: Emergency Provider Physician Assistant; PCP Registered Nurse
DX: I89.0 Lymphedema, not elsewhere classified (principal); I11.0 Hypertensive heart disease with heart failure; I50.9 Heart failure, unspecified; N30.00 Acute cystitis without hematuria; Z79.02 Long term (current) use of antithrombotics/antiplatelets; Z79.82 Long term (current) use of aspirin; F17.210 Nicotine dependence, cigarettes, uncomplicated; I13.0 Hypertensive heart and chronic kidney disease with heart failure and stage 1 through stage 4 chronic kidney disease, or unspecified chronic kidney disease; N18.9 Chronic kidney disease, unspecified; I25.10 Atherosclerotic heart disease of native coronary artery without angina pectoris; I25.2 Old myocardial infarction; E78.5 Hyperlipidemia, unspecified; G35 Multiple sclerosis
CPT/HCPCS: 36415; 71045; 80053; 81001; 83880; 85025; 87077; 87086; 87186; 96372; 99284; J0696

== ENCOUNTER 2022-06-25 20:07 | Emergency (ER) | payer MEDICARE, SELFPAY ==
--- NOTE | 2022-06-25 20:11 | USR_ITS ---
PROCEDURE INFORMATION: Exam: US Scrotum Exam date and time: 06/25/2022 10:49 PM Age: 67 years old Clinical indication: Patient HX: Patient admits to taking lasix to reduce his lower extremity edema, which is profound. C/O marked scrotal edema x 2 weeks. ; Additional info: Swelling TECHNIQUE: Imaging protocol: Real-time ultrasound of the scrotum and contents with color Doppler and image documentation. COMPARISON: [place] [id number] 04/27/2022 7:05 PM FINDINGS: Right testicle: 4.6 x 3.4 x 3.1 cm with normal blood flow. Left testicle: 4.7 x 2.7 x 3.3 cm with normal blood flow. Epididymides: 0.8 cm and 0.9 cm left epididymal cysts. The right epididymis is normal. Scrotum/soft tissues: Small bilateral hydroceles. Scrotal wall edema. US/US scrotum [id number] IMPRESSION: 1. No acute testicular finding. 2. Small bilateral hydroceles. 3. Left epididymal cysts. 4. Scrotal wall edema.
[2022-06-25 20:17] VITALS: BP 178/96; PULSE 79; RESP 17; O2SAT 92; BMI 40.1
--- NOTE | 2022-06-25 20:28 | XRR_ITS ---
PROCEDURE INFORMATION: Exam: XR Chest Exam date and time: 06/25/2022 8:39 PM Age: 67 years old Clinical indication: Dyspnea; Additional info: Chf TECHNIQUE: Imaging protocol: Radiologic exam of the chest. Views: 1 view. COMPARISON: [place] [id number] 04/27/2022 7:05 PM FINDINGS: Lungs: Ground-glass and mild interstitial opacities in both lungs, right greater than left. No consolidation. Pleural spaces: Unremarkable. No pleural effusion. No pneumothorax. Heart/Mediastinum: Severe cardiomegaly. Bones/joints: Unremarkable. XR/XR chest 1V portable [id number] IMPRESSION: Congestive heart failure pattern with severe cardiomegaly.
[2022-06-25 21:22] VITALS: BP 185/105; PULSE 95; RESP 18; O2SAT 95
--- NOTE | 2022-06-25 21:27 | ED_ITS ---
HPI - Male Genitourinary General: Chief complaint: Urogenital-Male Stated complaint: swollen testicle Time Seen by Provider: 06/25/22 20:27 Source: patient and EMS Mode of arrival: EMS Limitations: no limitations History of Present Illness: 67-year-old male history of CHF states he been having some swelling in his scrotum especially the left scrotum along with lower extremity edema he denies any shortness of breath or chest pain he denies any worsening or improving factors he is on Lasix at home. Associated symptoms: Deny nausea or vomiting Review of Systems Const: Denies: fever(s), chills, body aches or change in appetite Eyes: Denies: blurry vision or eye discomfort ENMT: Denies: throat pain or dental pain Card: Denies: chest pain Resp: Denies: dyspnea GI: Denies: abdominal pain, nausea, vomiting or diarrhea : Reports: scrotal swelling Musc: Reports: extremity swelling Skin/Breast: Denies: rash Neuro: Denies: headache(s) Psych: Denies: depression [place]/Lymph: Denies: easy bruising All/Imm: Denies: urticaria PFSH ED PFSH: Medical History Acute on chronic renal failure Acute on chronic urinary retention Cardiomyopathy Cellulitis CHF (congestive heart failure) Chronic kidney disease Coronary artery disease Encephalopathy Falls frequently History of non-ST elevation myocardial infarction (NSTEMI) HTN (hypertension) Hyperlipidemia Hypothermia Ischemic cardiomyopathy Lactic acidosis Lacunar infarction Multiple sclerosis Multiple sclerosis Multiple sclerosis Periorbital edema of both eyes Skin ulcer Tobacco dependency Troponin level elevated Urinary retention Surgical History History of esophagogastroduodenoscopy (EGD) Hx of colonoscopy with polypectomy Hx of heart artery stent stents x 2018- unknown vessels Family History Sister Heart disease Hypertension Myocardial infarction Mother Cancer Daughter Myocardial infarction Social History Smoking and tobacco status: current every day smoker cigarettes Packs smoked per day: 0.5 [ Other cigarette details: Cutting down] Alcohol intake: never Adopted: No Caregiver/support person: No Lives independently: No Marital status: Single Physical Exam Const: COMMON NORMALS: patient oriented x3 HENMT: COMMON NORMALS: normocephalic and atraumatic HEAD & SCALP: normocephalic and atraumatic Eye: COMMON NORMALS: Equal, round and reactive pupils present and EOMs intact bilaterally PUPIL: Yes Equal, round and reactive pupils present Neck/C-Spine: COMMON NORMALS: full ROM and supple Chest: COMMONS NORMALS: normal inspection of the chest and normal palpation of entire chest wall Resp: COMMON NORMALS: normal respiratory effort, No retractions, No use of accessory muscles and clear to auscultation bilaterally AUSCULTATION: clear to auscultation bilaterally Cardio: COMMON NORMALS: regular rate, regular rhythm and No murmurs present (Cardio) RATE: regular rate RHYTHM: regular rhythm GI: COMMON NORMALS: Normal to inspection, nondistended, normoactive bowel sounds present, Soft to palpation, non-tender and no masses PALPATION: Yes Soft to palpation : OTHER: Testicular swelling with no tenderness left greater than right Extremity: COMMON NORMALS: full ROM NARRATIVE EXTREMITY EXAM: 2+ edema Neuro: COMMON NORMALS: patient oriented x3, moves all extremities and no focal motor deficits Psych: COMMON NORMALS: mental status grossly normal, Normal thought process present and cooperative THOUGHT PROCESS: Normal thought process present Skin: COMMON NORMALS: no rashes or lesions noted and no wounds GENERAL SKIN EXAM: no rashes or lesions noted Course Vital Signs: Vital signs: Vital Signs Pulse Rate 102 H 06/25/22 23:43 Respiratory Rate 20 H 06/25/22 23:43 Blood Pressure 178/102 06/25/22 23:43 Pulse Oximetry 94 06/25/22 23:43 Oxygen Delivery Me thod 06/25/22 22:52 Oxygen Flow Rate 3 06/25/22 22:52 MDM - Male Medical Decision Making Patient presents here with scrotal edema along lower extremity SKYE likely from his CHF he is in no respiratory distress here he feels improved after Lasix he is requesting discharge I feel he is stable for discharge at this time he is to continue his Lasix at home follow-up with his PCP. Lab Data 06/25/22 20:55 06/25/22 20:55 Radiology Impressions Scrotum Ultrasound 06/25/22 20:11 IMPRESSION: 1. No acute testicular finding. 2. Small bilateral hydroceles. 3. Left epididymal cysts. 4. Scrotal wall edema. Chest X-Ray 06/25/22 20:28 IMPRESSION: Congestive heart failure pattern with severe cardiomegaly. Laboratory Results WBC 14.0 10^3/uL (4.0-10.0) H 06/25/22 20:55 RBC 5.34 10^6/uL (4.1-5.3) H 06/25/22 20:55 Hgb 13.8 g/dL (11.7-16.6) 06/25/22 20:55 Hct 46.0 % (42.0-52.0) 06/25/22 20:55 MCV 86.1 fl (80-94) 06/25/22 20:55 MCH 25.8 pg (28.0-34.0) L 06/25/22 20:55 MCHC 30.0 g/dL (30.0-36.0) 06/25/22 20:55 RDW 21.2 % (12.1-15.1) H 06/25/22 20:55 Plt Count 304 10^3/cmm (130-400) 06/25/22 20:55 MPV 10.4 fL (7.4-10.4) 06/25/22 20:55 Neut % (Auto) 80.7 % 06/25/22 20:55 Lymph % (Auto) 6.8 % 06/25/22 20:55 [place] % (Auto) 8.6 % 06/25/22 20:55 Eos % (Auto) 2.8 % 06/25/22 20:55 Baso % (Auto) 0.8 % 06/25/22 20:55 Neut # (Auto) 11.29 10^3/uL (1.8-7.7) H 06/25/22 20:55 Lymph # (Auto) 1.0 10^3/uL (0.8-4.8) 06/25/22 20:55 [place] # (Auto) 1.2 10^3/uL (0.2-0.9) H 06/25/22 20:55 Eos # (Auto) 0.4 10^3/uL (0.0-0.8) 06/25/22 20:55 Baso # (Auto) 0.1 10^3/uL (0.0-0.1) 06/25/22 20:55 Nucleated RBC % (auto) 0 % 06/25/22 20:55 Nucleated RBCs # 0.0 /100WBC 06/25/22 20:55 Sodium 138 mmol/L (136-145) 06/25/22 20:55 Potassium 3.9 mmol/L (3.5-5.1) 06/25/22 20:55 Chloride 97 mmol/L (98-107) L 06/25/22 20:55 Carbon Dioxide 32 mmol/L (22-29) H 06/25/22 20:55 Anion Gap 12.9 (5-19) 06/25/22 20:55 BUN 22 mg/dL (8-23) 06/25/22 20:55 Creatinine 1.3 mg/dL (0.7-1.2) H 06/25/22 20:55 GFR Calculation 54.9 mL/min (90-130) L 06/25/22 20:55 Glucose 136 mg/dL (65-115) H 06/25/22 20:55 Calculated Osmolality 291 mOsm/kg (285-295) 06/25/22 20:55 Calcium 8.8 mg/dL (8.5-10.5) 06/25/22 20:55 Total Bilirubin 0.6 mg/dL (0.15-1.2) 06/25/22 20:55 AST 34 U/L (0-40) 06/25/22 20:55 ALT 25 U/L (0-41) 06/25/22 20:55 Alkaline Phosphatase 185 U/L (40-130) H 06/25/22 20:55 NT-Pro-B Natriuret Pep 16665 pg/mL (0-125) H 06/25/22 20:55 Total Protein 7.8 g/dL (6.6-8.7) 06/25/22 20:55 Albumin 3.4 g/dL (3.5-5.2) L 06/25/22 20:55 Globulin 4.4 g/dL (1.3-4.6) 06/25/22 20:55 Urine Color Yellow (Yellow) 06/25/22 21:52 Urine Appearance Clear (CLEAR) 06/25/22 21:52 Urine pH 7 (5-7) 06/25/22 21:52 Ur Specific [place] 1.010 (1.005-1.030) 06/25/22 21:52 Urine Protein 1+ (Negative) H 06/25/22 21:52 Urine Glucose (UA) Norm (Normal) 06/25/22 21:52 Urine Ketones Negative (Negative) 06/25/22 21:52 Urine Blood 2+ (Negative) H 06/25/22 21:52 Urine Nitrate Negative (Negative) 06/25/22 21:52 Urine Bilirubin Neg (Negative) 06/25/22 21:52 Urine Urobilinogen Norm mg/dL (Negative) 06/25/22 21:52 Ur Leukocyte Esterase Negative (Negative) 06/25/22 21:52 Urine RBC 5-10 /hpf (0-2) H 06/25/22 21:52 Urine WBC 0-4 /hpf (0-5) H 06/25/22 21:52 Ur Squamous Epith Cells 0-4 /hpf (0-5) H 06/25/22 21:52 Amorphous Sediment Not Reportable 06/25/22 21:52 Urine Bacteria None /hpf (NONE) 06/25/22 21:52 Discharge Plan Discharge Patient Disposition: Home Clinical Impression: Edema of scrotum, Bilateral edema of lower extremity, CHF (congestive heart failure) Condition: Stable Prescriptions: No Action nitroglycerin 0.4 mg tablet, sublingual 0.4 mg SUBLINGUAL Q5M PRN (Reason: chest pain) Qty: 30 4RF Rx Instructions: until response; do not exceed 3 doses per episode cephalexin 500 mg capsule 500 mg PO Q6H 7 Days Qty: 28 0RF losartan 100 mg tablet 100 mg PO QAM atorvastatin 40 mg tablet 40 mg PO QPM carvedilol 6.25 mg Tablet 12.5 mg PO BID@0900,2100 Qty: 180 0RF clopidogrel 75 mg tablet 75 mg PO QAM Qty: 90 0RF furosemide 40 mg tablet 40 mg PO BID potassium chloride 10 mEq tablet extended release 10 meq PO DAILY hydralazine 25 mg tablet 25 mg PO TID Qty: 90 2RF aspirin 81 mg tablet,delayed release (DR/EC) 81 mg PO DAILY Qty: 30 2RF baclofen 10 mg tablet 5 mg PO Q8H PRN (Reason: muscle spasm) Qty: 7 0RF Discharge Orders: Discharge ED (Routine); Ordered 06/25/22 Ordered By: Anju Levine Referrals: Kylie Vogel [Primary Care Provider] - 1-3 days Discharge Diet: Advance as tolerated Discharge Activity: Resume usual activity Coding Level of Care Code ED Dynamic Etching Processor for Kathryn Olmstead
[2022-06-25 21:59] LABS: Alanine Aminotransferase 25 U/L (0-41); Albumin Level 3.4 g/dL (3.5-5.2); Alkaline Phosphatase 185 U/L (40-130); Anion Gap 12.9 (5-19); Aspartate Amino Transferase 34 U/L (0-40); Blood Urea Nitrogen 22 mg/dL (8-23); Calcium 8.8 mg/dL (8.5-10.5); Carbon Dioxide 32 mmol/L (22-29); Chloride 97 mmol/L (98-107); Globulin 4.4 g/dL (1.3-4.6); Glomerular Filtration Rate 54.9 mL/min (90-130); Glucose 136 mg/dL (65-115); NT Pro B Type Natriuretic Pept 11578 pg/mL (0-125); Osmolality Calculated 291 mOsm/kg (285-295); Potassium 3.9 mmol/L (3.5-5.1); Sodium 138 mmol/L (136-145); Total Bilirubin 0.6 mg/dL (0.15-1.2); Total Protein 7.8 g/dL (6.6-8.7)
[2022-06-25 22:02] LABS: Basophils # 0.1 10^3/uL (0.0-0.1); Basophils % 0.8 %; Eosinophils # 0.4 10^3/uL (0.0-0.8); Eosinophils % 2.8 %; Hemoglobin 13.8 g/dL (11.7-16.6); Lymphocytes % 6.8 %; Mean Corpuscular Hemoglobin 25.8 pg (28.0-34.0); Mean Corpuscular Volume 86.1 fl (80-94); Mean Platelet Volume 10.4 fL (7.4-10.4); Monocytes # 1.2 10^3/uL (0.2-0.9); Monocytes % 8.6 %; Neutrophils # 11.29 10^3/uL (1.8-7.7); Neutrophils % 80.7 %; Nucleated Red Blood Cells % 0 %; Platelet Count 304 10^3/cmm (130-400); Red Blood Count 5.34 10^6/uL (4.1-5.3); Red Cell Distribution Width 21.2 % (12.1-15.1)
[2022-06-25 22:14] LABS: Protein Urine 1+ (Negative); Urine Appearance Clear (CLEAR); Urine Color Yellow (Yellow); pH Urine 7 (5-7)
[2022-06-25 22:15] LABS: Add Urine Microscopic? YES; Bilirubin Urine Neg (Negative); Blood Urine 2+ (Negative); Glucose Urine UA Norm (Normal); Ketones Urine Negative (Negative); Leukocyte Esterase Urine Negative (Negative); Nitrate Urine Negative (Negative); Urobilinogen Urine Norm (Negative)
[2022-06-25 22:22] VITALS: BP 169/119; PULSE 96; RESP 18; O2SAT 98
[2022-06-25 22:22] LABS: Squamous Epithelial Cell Urine 0-4 /hpf (0-5); WBC Urine 0-4 /hpf (0-5)
[2022-06-25 22:33] VITALS: RESP 22; O2SAT 94
[2022-06-25] MEDS: morphine 4 mg/mL SDV 1 mL IVP (22:33)
[2022-06-25] MEDS: ondansetron 2 mg/ML SDV 2 mL 4 MG IVP (22:33)
[2022-06-25] MEDS: FUROsemide 10 mg/mL SDV 10mL 60 MG IVP (22:33)
[2022-06-25 22:52] VITALS: BP 183/119; PULSE 97; RESP 20; O2SAT 94
[2022-06-25] MEDS: labetalol 5 mg/mL SDV 20mL 10 MG IVP (23:34)
[2022-06-25 23:43] VITALS: BP 178/102; PULSE 102; RESP 20; O2SAT 94
== END 2022-06-26 01:02 | disposition home or self-care (01) ==
PROVIDERS: Emergency Provider Emergency Medicine; PCP Registered Nurse
DX: N50.89 Other specified disorders of the male genital organs (principal); R60.0 Localized edema; I11.0 Hypertensive heart disease with heart failure; I50.9 Heart failure, unspecified; Z79.82 Long term (current) use of aspirin; Z79.02 Long term (current) use of antithrombotics/antiplatelets; N43.3 Hydrocele, unspecified; N50.3 Cyst of epididymis; F17.210 Nicotine dependence, cigarettes, uncomplicated; I13.0 Hypertensive heart and chronic kidney disease with heart failure and stage 1 through stage 4 chronic kidney disease, or unspecified chronic kidney disease; N18.9 Chronic kidney disease, unspecified; I25.10 Atherosclerotic heart disease of native coronary artery without angina pectoris; I25.2 Old myocardial infarction; E78.5 Hyperlipidemia, unspecified; G35 Multiple sclerosis
CPT/HCPCS: 71045; 76870; 80053; 81001; 83880; 85025; 96374; 96375; 99285; J1940; J2270; J2405; J3490

== ENCOUNTER 2022-07-07 16:51 | Inpatient (IN) | payer MEDICARE, SELFPAY ==
[2022-07-07] VITALS (8 sets, daily range): BP systolic 116–137; BP diastolic 71–88; PULSE 87–97; RESP 14–22; TEMP 36.5–37.2; O2SAT 93–100; BMI 40.1; BMI 41.5
--- NOTE | 2022-07-07 16:54 | ED_ITS ---
HPI - Nausea/Vomiting/Diarrhea General: Chief complaint: Nausea/Vomiting/Diarrhea Stated complaint: DIARRHEA Time Seen by Provider: 07/07/22 16:53 History of Present Illness: Mr Coleman is a 67-year-old gentleman with complex past medical history including obesity, hypertension, hyperlipidemia, limited mobility with lower extremity edema presenting to the emergency department for generalized illness. The reports worsening of symptoms including abdominal pain, subjective malaise with fevers and chills, and now uncontrollable diarrhea over the past few days. He was found covered in feces as he was unable to get off his chair when he had diarrhea. Onset (ago): day(s) Associated nausea: Yes Associated abdominal pain: Yes Location of pain: Diffuse Severity: moderate Quality: cramping and aching Exacerbating factors: none Relieving factors: none Associated symtoms: Reports fatigue, fevers/chills, anorexia, malaise, nausea and weakness Review of Systems General: Reports: 10 or more systems reviewed and unremarkable except in HPI and below Const: Reports: fatigue and malaise GI: Reports: nausea PFSH ED PFSH: Medical History Acute on chronic renal failure Acute on chronic urinary retention Cardiomyopathy Cellulitis CHF (congestive heart failure) Chronic kidney disease Coronary artery disease Encephalopathy Falls frequently History of non-ST elevation myocardial infarction (NSTEMI) HTN (hypertension) Hyperlipidemia Hypothermia Ischemic cardiomyopathy Lactic acidosis Lacunar infarction Multiple sclerosis Multiple sclerosis Multiple sclerosis Periorbital edema of both eyes Skin ulcer Tobacco dependency Troponin level elevated Urinary retention Surgical History History of esophagogastroduodenoscopy (EGD) Hx of colonoscopy with polypectomy Hx of heart artery stent stents x 2018- unknown vessels Family History Sister Heart disease Hypertension Myocardial infarction Mother Cancer Daughter Myocardial infarction Social History Smoking and tobacco status: current every day smoker cigarettes Packs smoked per day: 0.5 [ Other cigarette details: Cutting down] Alcohol intake: never Adopted: No Caregiver/support person: No Lives independently: No Marital status: Single Physical Exam Const: COMMON NORMALS: alert GENERAL APPEARANCE: cooperative and well developed HENMT: COMMON NORMALS: normocephalic and atraumatic HEAD & SCALP: normocephalic and atraumatic Eye: COMMON NORMALS: conjunctivae normal CONJUNCTIVA: Yes conjunctivae normal SCLERA: sclerae normal Neck/C-Spine: COMMON NORMALS: supple GENERAL: Yes trachea midline Resp: COMMON NORMALS: normal respiratory effort EFFORT & INSPECTION: Yes able to speak in complete sentences Cardio: COMMON NORMALS: regular rate and regular rhythm RATE: regular rate RHYTHM: regular rhythm GI: COMMON NORMALS: Soft to palpation PALPATION: Yes Soft to palpation, Yes Tenderness to palpation present (GI), No Guarding due to palpation present (GI) and No Rigid due to palpation Extremity: GENERAL: Yes normal exam except as noted and Yes edema Neuro: COMMON NORMALS: moves all extremities SENSORIUM/ORIENTATION: Yes alert and No Orientation impaired Psych: COMMON NORMALS: mental status grossly normal and Normal thought process present THOUGHT PROCESS: Normal thought process present Course Vital Signs: Vital signs: Vital Signs Temperature 98.0 F 07/15/22 12:42 Pulse Rate 65 07/15/22 12:42 Respiratory Rate 16 07/15/22 12:42 Blood Pressure 116/71 07/15/22 12:42 Pulse Oximetry 95 07/15/22 12:42 Oxygen Delivery Me thod Nasal Cannula 07/15/22 11:25 Oxygen Flow Rate 2 07/15/22 04:00 MDM - Nausea/Vomiting/Diarrhea Medical Decision Making 67-year-old gentleman presenting to the emergency department with various medical concerns. Overall he appears to be debilitated to the point of failure of self-care. He does have abdominal tenderness and diarrhea. There is no evidence of acute surgical abdomen. Exam otherwise as above. Labs notable for leukocytosis, normal hemoglobin and platelet count. Metabolic panel with hyponatremia likely significant enough to explain symptoms. BNP is elevated. Procalcitonin mildly elevated. Urinalysis concerning for urinary tract infection. CT abdomen pelvis demonstrates numerous incidental findings which were discussed with patient Patient treated with antibiotics, IV fluids. Most likely etiology of patient's symptoms is multifactorial including symptomatic hyponatremia and dehydration with complicated UTI. The results of ED evaluation were discussed with the patient including plan for admission due to requirement for level of care not available if discharged to prevent significant worsening/deterioration. Patient agreeable with plan. Discussed with hospitalist service who was agreeable to admit patient. Medical Records I reviewed the patient's medical records. Lab Data I reviewed the patient's lab results. 07/15/22 03:47 07/15/22 03:47 Radiology Impressions Abdomen/Pelvis CT 07/07/22 17:27 IMPRESSION: 1. Mild 1.5 cm rounded nodular appearance of the superior left adrenal gland, unchanged from prior exam. 2. Vascular calcification including a component of small-vessel calcification in both kidneys, with possible tiny nonobstructing right renal calculus. 3. Small hypodense renal cortical foci are unchanged with prior exam, likely small cysts. 4. Mild colonic diverticulosis and moderate stool content in the colon. 5. Left inguinal hernia of fat, unchanged from prior exam. 6. Soft tissue subcutaneous edema or anasarca. Intramuscular lipoma left gluteus minimus. 7. Barros catheter in the urinary bladder. 8. No acute findings, otherwise. COMMENTS: Consistent with the [place] [employer]'s Incidental Findings Committee white paper (J Am Vipul Radiol 2018): Any incidental renal lesion less than 1 cm or classified as too small to characterize, or any incidental cystic renal lesion characterized as simple-appearing, is likely benign. No follow-up imaging is recommended for these lesions per consensus recommendations based on imaging criteria. Chest X-Ray 07/10/22 07:00 IMPRESSION: Stable abnormal chest. Patient has chronic interstitial changes and it is difficult to exclude the superimposition of acute congestive heart failure. Laboratory Results WBC 16.9 10^3/uL (4.0-10.0) H 07/07/22 17:42 RBC 5.00 10^6/uL (4.1-5.3) 07/07/22 17:42 Hgb 13.0 g/dL (11.7-16.6) 07/07/22 17:42 Hct 41.2 % (42.0-52.0) L 07/07/22 17:42 MCV 82.4 fl (80-94) 07/07/22 17:42 MCH 26.0 pg (28.0-34.0) L 07/07/22 17:42 MCHC 31.6 g/dL (30.0-36.0) 07/07/22 17:42 RDW 19.6 % (12.1-15.1) H 07/07/22 17:42 Plt Count 384 10^3/cmm (130-400) 07/07/22 17:42 MPV 9.7 fL (7.4-10.4) 07/07/22 17:42 Neut % (Auto) 85.8 % 07/07/22 17:42 Lymph % (Auto) 4.4 % 07/07/22 17:42 [place] % (Auto) 8.6 % 07/07/22 17:42 Eos % (Auto) 0.5 % 07/07/22 17:42 Baso % (Auto) 0.2 % 07/07/22 17:42 Neut # (Auto) 14.50 10^3/uL (1.8-7.7) H 07/07/22 17:42 Lymph # (Auto) 0.8 10^3/uL (0.8-4.8) 07/07/22 17:42 [place] # (Auto) 1.5 10^3/uL (0.2-0.9) H 07/07/22 17:42 Eos # (Auto) 0.1 10^3/uL (0.0-0.8) 07/07/22 17:42 Baso # (Auto) 0.0 10^3/uL (0.0-0.1) 07/07/22 17:42 Nucleated RBC % (auto) 0 % 07/07/22 17:42 Nucleated RBCs # 0.0 /100WBC 07/07/22 17:42 Sodium 125 mmol/L (136-145) L 07/07/22 17:42 Potassium 5.1 mmol/L (3.5-5.1) 07/07/22 17:42 Chloride 93 mmol/L (98-107) L 07/07/22 17:42 Carbon Dioxide 23 mmol/L (22-29) 07/07/22 17:42 Anion Gap 14.1 (5-19) 07/07/22 17:42 BUN 21 mg/dL (8-23) 07/07/22 17:42 Creatinine 1.1 mg/dL (0.7-1.2) 07/07/22 17:42 GFR Calculation 66.6 mL/min (90-130) L 07/07/22 17:42 Glucose 141 mg/dL (65-115) H 07/07/22 17:42 Calculated Osmolality 265 mOsm/kg (285-295) L 07/07/22 17:42 Lactic Acid 1.8 mmol/L (0.5-2.2) 07/07/22 17:42 Calcium 8.4 mg/dL (8.5-10.5) L 07/07/22 17:42 Total Bilirubin 0.9 mg/dL (0.15-1.2) 07/07/22 17:42 AST 32 U/L (0-40) 07/07/22 17:42 ALT 35 U/L (0-41) 07/07/22 17:42 Alkaline Phosphatase 194 U/L (40-130) H 07/07/22 17:42 NT-Pro-B Natriuret Pep 65462 pg/mL (0-125) H 07/07/22 17:42 Total Protein 7.0 g/dL (6.6-8.7) 07/07/22 17:42 Albumin 2.6 g/dL (3.5-5.2) L 07/07/22 17:42 Globulin 4.4 g/dL (1.3-4.6) 07/07/22 17:42 Urine Color Yellow (Yellow) 07/07/22 18:12 Urine Appearance Cloudy (CLEAR) A 07/07/22 18:12 Urine pH 6 (5-7) 07/07/22 18:12 Ur Specific [place] 1.010 (1.005-1.030) 07/07/22 18:12 Urine Protein 2+ (Negative) H 07/07/22 18:12 Urine Glucose (UA) Norm (Normal) 07/07/22 18:12 Urine Ketones Negative (Negative) 07/07/22 18:12 Urine Blood 2+ (Negative) H 07/07/22 18:12 Urine Nitrate Negative (Negative) 07/07/22 18:12 Urine Bilirubin Neg (Negative) 07/07/22 18:12 Urine Urobilinogen Norm mg/dL (Negative) 07/07/22 18:12 Ur Leukocyte Esterase 2+ (Negative) H 07/07/22 18:12 Urine RBC 10-15 /hpf (0-2) H 07/07/22 18:12 Urine WBC 25-40 /hpf (0-5) H 07/07/22 18:12 Ur Squamous Epith Cells Rare /hpf (0-5) 07/07/22 18:12 Amorphous Sediment Not Reportable 07/07/22 18:12 Urine Bacteria 4+ /hpf (NONE) H 07/07/22 18:12 Discharge Plan Discharge Patient Disposition: Placed in Observation Admit Provider: Jane Sargent Clinical Impression: Complicated urinary tract infection, Dehydration, Diarrhea Discharge Diet: Cardiac Discharge Activity: Resume usual activity Coding Level of Care Code ED Control And Recovery Special Tactics for Kathryn Olmstead
--- NOTE | 2022-07-07 17:27 | CTR_ITS ---
PROCEDURE INFORMATION: Exam: CT Abdomen And Pelvis With Contrast Exam date and time: 07/07/2022 7:05 PM Age: 67 years old Clinical indication: Abdominal pain; Prior surgery; Surgery type: Polypectomy during colonoscopy; Additional info: Abd pain, diarrhea TECHNIQUE: Imaging protocol: Computed tomography of the abdomen and pelvis with contrast. Radiation optimization: All CT scans at this facility use at least one of these dose optimization techniques: automated exposure control; mA and/or kV adjustment per patient size (includes targeted exams where dose is matched to clinical indication); or iterative reconstruction. Contrast material: OMNI 350; Contrast volume: 100 ml; Contrast route: INTRAVENOUS (IV); REPORTING DATA: Count of CT and Cardiac NM exams in prior 12 months: This patient has received 3 known CTs and 0 known cardiac nuclear medicine studies in the 12 months prior to the current study. COMPARISON: [place] [id number] 04/27/2022 7:05 PM RADIATION DOSE METRICS: Total DLP (mGy-cm): 1544.5 FINDINGS: Lungs: No significant infiltrate or effusion is seen within the lung bases. Liver: Normal. No mass. Gallbladder and bile ducts: Normal. No calcified stones. No ductal dilation. Pancreas: Normal. No ductal dilation. Spleen: Normal. No splenomegaly. Adrenal glands: Mild rounded nodular appearance of the superior left adrenal gland of approximally 1.5 cm, unchanged with previous exam. Adrenal glands are otherwise unremarkable. Kidneys and ureters: Mild vascular calcification is noted within both kidneys, with probable tiny nonobstructing right renal calculus. Very small rounded hypodense focus within the cortex of the kidneys likely small cysts. Findings are unchanged from previous exam. Stomach and bowel: Mild colonic diverticulosis. Moderate stool content in the colon. No bowel obstruction. Appendix: No evidence of appendicitis. Intraperitoneal space: Unremarkable. No free air. No significant fluid collection. Vasculature: Atherosclerotic vascular disease without aneurysmal dilatation of the abdominal aorta. Lymph nodes: Unremarkable. No enlarged lymph nodes. Urinary bladder: Barros catheter seen within the urinary bladder, with suboptimal evaluation secondarily. Reproductive: Unremarkable as visualized. Bones/joints: Spondylotic change lumbar spine. Soft tissues: Left inguinal hernia of fat without bowel content. Intramuscular lipoma in the left gluteus minimus as noted with prior exam. Subcutaneous edema and/or anasarca. CT/CT abdomen pelvis w con* [id number] IMPRESSION: 1. Mild 1.5 cm rounded nodular appearance of the superior left adrenal gland, unchanged from prior exam. 2. Vascular calcification including a component of small-vessel calcification in both kidneys, with possible tiny nonobstructing right renal calculus. 3. Small hypodense renal cortical foci are unchanged with prior exam, likely small cysts. 4. Mild colonic diverticulosis and moderate stool content in the colon. 5. Left inguinal hernia of fat, unchanged from prior exam. 6. Soft tissue subcutaneous edema or anasarca. Intramuscular lipoma left gluteus minimus. 7. Barros catheter in the urinary bladder. 8. No acute findings, otherwise. COMMENTS: Consistent with the [employer]'s Incidental Findings Committee white paper (J Am Vipul Radiol 2018): Any incidental renal lesion less than 1 cm or classified as too small to characterize, or any incidental cystic renal lesion characterized as simple-appearing, is likely benign. No follow-up imaging is recommended for these lesions per consensus recommendations based on imaging criteria.
[2022-07-07 18:01] LABS: Basophils % 0.2 %; Eosinophils # 0.1 10^3/uL (0.0-0.8); Eosinophils % 0.5 %; Hematocrit 41.2 % (42.0-52.0); Lymphocytes # 0.8 10^3/uL (0.8-4.8); Lymphocytes % 4.4 %; Mean Corpuscular HGB Conc 31.6 g/dL (30.0-36.0); Mean Corpuscular Volume 82.4 fl (80-94); Mean Platelet Volume 9.7 fL (7.4-10.4); Monocytes # 1.5 10^3/uL (0.2-0.9); Monocytes % 8.6 %; Neutrophils % 85.8 %; Nucleated Red Blood Cells % 0 %; Platelet Count 384 10^3/cmm (130-400); Red Cell Distribution Width 19.6 % (12.1-15.1); White Blood Count 16.9 10^3/uL (4.0-10.0)
[2022-07-07 18:29] LABS: Lactic Sepsis W/Reflex 1.8 mmol/L (0.5-2.2)
[2022-07-07 18:40] LABS: Alanine Aminotransferase 35 U/L (0-41); Albumin Level 2.6 g/dL (3.5-5.2); Alkaline Phosphatase 194 U/L (40-130); Anion Gap 14.1 (5-19); Aspartate Amino Transferase 32 U/L (0-40); Blood Urea Nitrogen 21 mg/dL (8-23); Calcium 8.4 mg/dL (8.5-10.5); Carbon Dioxide 23 mmol/L (22-29); Chloride 93 mmol/L (98-107); Globulin 4.4 g/dL (1.3-4.6); Glomerular Filtration Rate 66.6 mL/min (90-130); Glucose 141 mg/dL (65-115); NT Pro B Type Natriuretic Pept 10513 pg/mL (0-125); Osmolality Calculated 265 mOsm/kg (285-295); Potassium 5.1 mmol/L (3.5-5.1); Sodium 125 mmol/L (136-145); Total Bilirubin 0.9 mg/dL (0.15-1.2)
[2022-07-07 18:46] LABS: Glucose Urine UA Norm (Normal); Ketones Urine Negative (Negative); Protein Urine 2+ (Negative); Urine Appearance Cloudy (CLEAR); Urine Color Yellow (Yellow); pH Urine 6 (5-7)
[2022-07-07 18:47] LABS: Add Urine Microscopic? YES; Bilirubin Urine Neg (Negative); Blood Urine 2+ (Negative); Leukocyte Esterase Urine 2+ (Negative); Nitrate Urine Negative (Negative); Urobilinogen Urine Norm (Negative)
[2022-07-07 18:50] LABS: Bacteria Urine 4+ /hpf; Squamous Epithelial Cell Urine RARE /hpf (0-5); WBC Urine 25-40 /hpf (0-5)
[2022-07-07 18:51] LABS: Add Urine Culture? Yes
[2022-07-07] MEDS: iohexol 350 mg/mL 500 mL Btl (per mL) IV (19:11)
[2022-07-07] MEDS: cefTRIAXone 1,000 MG in sodium chloride 0.9% (plus) 50 ML 100 MG IV (19:29)
[2022-07-07] MEDS: sodium chloride 0.9% 1,000 ML 150 ML IV (20:10)
--- NOTE | 2022-07-07 22:30 | P.HP_ITS ---
Providers/Chief Complaint Admitting Physician: Jane Sargent MD Primary Care Provider: Kylie Vogel Chief Complaint: DIARRHEA History of Present Illness Armando Coleman is a 67 year old male with history of chronic congestive heart failure, coronary disease status post stent November 2021, multiple sclerosis, neurogenic bladder, NSTEMI, CKD, hyperlipidemia, urinary retention, self caths at home?for the hospital today with complaint of generalized illness. He is unable to find chronic or exactly how long however states his scrotum is swollen and weeping wound on his calf. At previous visit to the ER on 06/25/2022 he had a scrotal ultrasound on which showed scrotal wall edema, small bilateral hydroceles no acute testicular findings. Chest x-ray at that visit did show some pulmonary vascular congestion he was given Lasix and then discharged home. Patient claims that he was called from the hospital to come back because there was an abnormal lab result. Upon reviewing records it seems urine culture was positive for E. coli that was pansensitive. Patient states that he has been taking the medication that was prescribed a week prior which has given him diarrhea. He has been having diarrhea for 1 week. He is incontinent of stool and had soiled himself. He says his girlfriend helps him at home. He presents a very conflicting history is a very very poor historian. It was very challenging to put all the events together in chronological order. Ultimately he states he does not know why he is at the hospital and we should be the ones doing investigation to find out what is wrong with him. He does state that he is interested in rehab if he would qualify for some. ED course: Blood pressure 128/88, pulse 90, respiratory 20, temperature 99, saturating 98% on room air. Patient given a gram of Rocephin and placed on IV fluids 150 cc/h. ET abdomen pelvis showed mild 1.5 cm rounded nodular appearance of superior left adrenal gland unchanged from prior exam. Vascular calcification including moderate of small vessel calcification in both kidneys with possible tiny nonobstructing right renal calculus, small hypodense renal cortical foci are unchanged from prior exam likely small cysts. Mild colonic diverticulosis and moderate stool content in colon, left inguinal hernia with fat unchanged from prior exam, soft tissue subcutaneous edema anasarca. Intramu scular lipoma left gluteus minimus, Barros catheter in urinary bladder, no acute findings otherwise. Medications/Allergies Home Medications Medication Instructions Recorded Confirmed Last Taken Type nitroglycerin 0.4 mg sublingual 0.4 mg sublingual Q5M PRN chest 04/27/19 06/21/22 11/21/21 Rx tablet pain #30 tabs 20 tabs per pt & wif atorvastatin 40 mg tablet 40 mg PO QPM 11/22/21 06/21/22 06/21/22 History losartan 100 mg tablet 100 mg PO QAM 11/22/21 06/21/22 01/21/22 History carvedilol 6.25 mg tablet 12.5 mg PO BID@0900,2100 #180 tabs 11/24/21 06/21/22 06/21/22 Rx clopidogrel 75 mg tablet 75 mg PO QAM #90 tabs 11/24/21 06/21/22 06/21/22 Rx furosemide 40 mg tablet 40 mg PO BID 04/27/22 06/21/22 06/21/22 History potassium chloride 10 mEq 10 meq PO DAILY 04/27/22 06/21/22 Unknown History tablet,extended release aspirin 81 mg tablet,delayed 81 mg PO DAILY #30 tabs 04/29/22 06/21/22 06/21/22 Rx release hydralazine 25 mg tablet 25 mg PO TID #90 tabs 04/29/22 06/21/22 06/21/22 Rx baclofen 10 mg tablet 5 mg PO Q8H PRN muscle spasm #7 06/20/22 06/21/22 Unknown Rx tabs Allergies Allergy/AdvReac Type Severity Reaction Status Date / Time No Known Allergies Allergy Verified 06/21/22 14:23 PFSH Acute PFSH: Medical History (Updated 07/07/22 @ 23:25 by Jane Sargent MD) Acute on chronic renal failure Acute on chronic urinary retention Cardiomyopathy Cellulitis CHF (congestive heart failure) Chronic kidney disease Coronary artery disease Encephalopathy Falls frequently History of non-ST elevation myocardial infarction (NSTEMI) HTN (hypertension) Hyperlipidemia Hypothermia Ischemic cardiomyopathy Lactic acidosis Lacunar infarction Multiple sclerosis Multiple sclerosis Multiple sclerosis Periorbital edema of both eyes Skin ulcer Tobacco dependency Troponin level elevated Urinary retention Surgical History History of esophagogastroduodenoscopy (EGD) Hx of colonoscopy with polypectomy Hx of heart artery stent stents x 2017- unknown vessels Family History Sister Heart disease Hypertension Myocardial infarction Mother Cancer Daughter Myocardial infarction Social History Smoking and tobacco status: current every day smoker cigarettes Packs smoked per day: 0.5 [ Other cigarette details: Cutting down] Alcohol intake: never Adopted: No Caregiver/support person: No Lives independently: No Marital status: Single Vitals/I&O/Wt Last Vital Signs Temp 99.0 F 07/07/22 17:44 Pulse 90 07/07/22 21:44 Resp 20 H 07/07/22 21:44 BP 128/88 07/07/22 21:44 Pulse Ox 98 07/07/22 21:44 O2 Del Method 07/07/22 21:00 07/07/22 07/07/22 07/07/22 06:59 14:59 22:59 Intake Total 50 / 50 Balance 50 / 50 Weight last 48 hrs Weight 127.006 kg Physical Exam Narrative: General: Alert oriented x3.? Patient seen laying in bed on room air. Laying flat with no respiratory distress. HEENT: Normocephalic, atraumatic, EOMI, Cardio: Regular rate rhythm, normal S1-S2, Respiratory: Clear to auscultation bilaterally, no wheezes no rhonchi no crackles at this time. GI: Abdomen soft, nontender, bowel sounds + Extremities: has several lesions with drainage, open wound currently on left calf that is draining. Erythema noted around that area as well.. Irregular open wound noted around right busby. Thickened toenails. Scrotal edema present. Erythematous scrotum, erythematous pannus. Pelvic area is appearing beefy red with redness extending to scrotum under the pannus and towards inner thighs. Urinary Catheter Management: Barros: Cath Placed During This Visit: yes Urinary Catheter Date of Insertion: 07/07/22 Urinary Catheter Time of Insertion: 18:10 Data 07/07/22 17:42 07/07/22 17:42 Micro: Microbiology 07/07/22 17:51 Blood Culture - Preliminary Blood SPECIMEN COLLECTED 07/07/22 17:42 Blood Culture - Preliminary Blood SPECIMEN COLLECTED A&P Assessment and plan (1) Complicated urinary tract infection: (2) Dehydration: (3) Diarrhea: (4) Hypoxia: (5) History of colon polyps: (6) CHF (congestive heart failure): (7) HTN (hypertension): (8) Coronary artery disease: (9) Chronic kidney disease: (10) Hyperlipidemia: (11) Multiple sclerosis: (12) Skin ulcer: (13) Cellulitis: (14) Hyponatremia: Plan #Cellulitis, intertrigo pannus, pelvis, scrotum #UTI #Chronic congestive heart failure, diastolic #Generalized anasarca, scrotal edema #Coronary artery disease status post stent November 2021 #Multiple sclerosis #Neurogenic bladder, self caths at home #CKD #Hyperlipidemia #Hypertension #Hyponatremia #Hypoalbuminemia #Leukocytosis most likely secondary to cellulitis ? Placed on vancomycin and Zosyn for cellulitis. De-escalate to Augmentin as clinically improves ? Interdry sheets between skin folds to be applied ? Nystatin powder for skin folds ? Scrotal ultrasound done last week patient no acute pathology identified. Edema most likely secondary to generalized anasarca and CHF. Lungs are clear to auscultation. Patient on room air laying flat. ? Continue hydralazine 25 3 times daily, losartan daily, aspirin, atorvastatin ? Continue Coreg -Check blood cultures, urine culture ? Place Barros catheter for accurate output and neurogenic bladder. Self caths at home. ? Vitals every 4 hours ? Check CRP, CPK, CBC, BMP, magnesium in a.m. ? PT OT. Patient interested in SNF. States he is bedbound and uses an electric scooter and also has a wheelchair. His girlfriend helps him get around if needed however he states he does not move much. ? Will need wound care. ? Check urine osmolality, serum osmolality, urine sodium ? Check lactic acid ? We will stop IV fluids normal saline 150 cc/h since patient has a history of CHF and has anasarca. He is on Lasix 40 twice daily at home. I will continue on Lasix 40 IV daily at this time. Full code Heparin SQ twice daily, SCDs Attestations Medical Necessity Statement*: Will cross greater than 2 midnight stay for management of cellulitis, UTI and potential SNF placement Other Coding Information Focused coding review requested Diagnoses Complicated urinary tract infection N39.0 Dehydration E86.0 Diarrhea R19.7 Hypoxia R09.02 History of colon polyps Z86.010 CHF (congestive heart failure) I50.9 HTN (hypertension) I10 Coronary artery disease I25.10 Chronic kidney disease N18.9 Hyperlipidemia E78.5 Multiple sclerosis G35 Skin ulcer L98.499 Cellulitis L03.90 Hyponatremia E87.1
[2022-07-08] VITALS (9 sets, daily range): BP systolic 94–113; BP diastolic 58–79; PULSE 64–91; RESP 16–19; TEMP 36.4–36.8; O2SAT 90–97
[2022-07-08] MEDS: FUROsemide 10 mg/mL SDV 4mL 40 MG IVP (00:06)
[2022-07-08] MEDS: heparin 5,000 unit/mL INJ 1 mL 5000 UNIT SUBCUT ×2 (00:08→12:06)
[2022-07-08] MEDS: piperacillin-tazobactam 3.375 GM in sodium chloride 0.9% (plus) 50 ML IV ×3 (00:10→16:27)
[2022-07-08 00:17] LABS: Lactic Sepsis W/Reflex 1.5 mmol/L (0.5-2.2)
[2022-07-08] MEDS: vancomycin 1,250 MG/250 ML PIGGYBACK 250 MG IV ×2 (00:18→12:10)
[2022-07-08 00:29] LABS: Procalcitonin 0.54 ng/mL (0-0.5)
[2022-07-08] MEDS: acetaminophen 325 mg Tablet 650 MG PO ×2 (01:40→13:44)
[2022-07-08 02:04] LABS: Urine Random Sodium 101 mmol/L
[2022-07-08] MEDS: nicotine 2 mg Gum BUCCAL ×5 (04:58→19:49)
[2022-07-08] MEDS: clopidogrel 75 mg Tablet PO (04:58)
[2022-07-08 05:27] LABS: Basophils # 0.1 10^3/uL (0.0-0.1); Basophils % 0.5 %; Eosinophils # 0.3 10^3/uL (0.0-0.8); Eosinophils % 2.1 %; Hemoglobin 11.9 g/dL (11.7-16.6); Lymphocytes # 1.1 10^3/uL (0.8-4.8); Lymphocytes % 7.7 %; Mean Corpuscular HGB Conc 31.3 g/dL (30.0-36.0); Mean Corpuscular Hemoglobin 25.5 pg (28.0-34.0); Mean Corpuscular Volume 81.4 fl (80-94); Mean Platelet Volume 9.8 fL (7.4-10.4); Monocytes # 1.3 10^3/uL (0.2-0.9); Monocytes % 9.5 %; Neutrophils % 79.8 %; Nucleated Red Blood Cells % 0 %; Platelet Count 357 10^3/cmm (130-400); Red Blood Count 4.67 10^6/uL (4.1-5.3); Red Cell Distribution Width 19.5 % (12.1-15.1); White Blood Count 14.2 10^3/uL (4.0-10.0)
[2022-07-08 05:39] LABS: Magnesium 2.1 mg/dL (1.7-2.3); Phosphorus 5.4 mg/dL (2.5-4.5)
--- NOTE | 2022-07-08 05:49 | PC.NURSE ---
Attempted to verify home meds at admission. Patient unsure of what he takes each day and wants to rest. Will inform dayshift RN
--- NOTE | 2022-07-08 08:02 | PC.PHAR ---
PT STS HE IS UNSURE IF HE STILL TAKES HYDRALAZINE 25 MG TID LAST FILLED 30DS 04/29/22- PT ALSO STS HE STOPPED TAKING LOPERAMIDE 2 MG BECAUSE HE DOESN'T THINK IT WORKS
[2022-07-08] MEDS: pantoprazole DR 40 mg Tablet PO (08:35)
[2022-07-08] MEDS: aspirin 81 mg EC Tablet PO (08:35)
[2022-07-08] MEDS: carvedilol 6.25 mg Tablet 12.5 MG PO ×2 (08:35→23:03)
--- NOTE | 2022-07-08 09:06 | ECG_ITS ---
[facility] Test Date: 2022-07-08 Pat Name: Armando Coleman Department: Room: 251 Gender: Male Hide Shaker: : 1955 Requested By: Kulwant Guerin Order Number: [id number] Johanny MD: Parish Lea M.D. Measurements Intervals [place] Rate: 90 P: 49 [place]: 198 QRS: 92 QRSD: 194 T: -4 QT: 440 QTc: 539 Interpretive Statements SINUS RHYTHM POSSIBLE LEFT ATRIAL ENLARGEMENT [-0.1mV P-WAVE IN V1/V2] RIGHT BUNDLE BRANCH BLOCK [120+ ms QRS DURATION, UPRIGHT V1, 40+ ms S IN I/aVL/V4/V5/V6] Compared to ECG 04/27/2022 19:39:02 First degree AV block no longer present Left posterior fascicular block no longer present T-wave abnormality no longer present Possible ischemia no longer present Electronically Signed On 07-08-2022 13:06:46 CDT by Parish Lea M.D. [id number]
[2022-07-08 09:38] LABS: Alanine Aminotransferase 33 U/L (0-41); Albumin Level 2.3 g/dL (3.5-5.2); Alkaline Phosphatase 184 U/L (40-130); Anion Gap 13.3 (5-19); Aspartate Amino Transferase 30 U/L (0-40); Blood Urea Nitrogen 23 mg/dL (8-23); Calcium 8.4 mg/dL (8.5-10.5); Carbon Dioxide 26 mmol/L (22-29); Chloride 89 mmol/L (98-107); Globulin 4.4 g/dL (1.3-4.6); Glomerular Filtration Rate 60.2 mL/min (90-130); Glucose 122 mg/dL (65-115); Osmolality Calculated 263 mOsm/kg (285-295); Potassium 4.3 mmol/L (3.5-5.1); Sodium 124 mmol/L (136-145); Total Bilirubin 0.9 mg/dL (0.15-1.2); Total Protein 6.7 g/dL (6.6-8.7)
[2022-07-08 09:41] LABS: Troponin(5th) Baseline 85 ng/L (0-15)
[2022-07-08] MEDS: nystatin powder 15 gm Btl 1 APPLIC TOPICAL ×2 (10:07→18:27)
--- NOTE | 2022-07-08 10:09 | PC.CHAP ---
Pastoral Care Encounter/Spiritual Assessment Type of Contact [] Declined glass furnace tender visit [] Patient/Family/Request visit [] Outpatient visit [] Follow-up visit [] Physician referral [] Code/Alert [x] Routine visit [] Staff referral [] Actively dying [] Patient sleeping [] Family support [] [] Out of room [] Palliative care [] [] Receiving care in room [] Pre-surgical visit [] Trauma [] Long length of stay [] ICU visit [] Other: Relational/Emotional Strength [x] Patient feels connected with others/family/visitors/staff [] Distress [] Loneliness/isolation [] Abandonment Spirituality of Patient [x] Person of Shavonne [] Attends Latter Day of their Shavonne [x] Believes in Prayer [] Reads Bible or Moravian materials [] There are Spiritual issues to be addressed Catalogue Maker Interventions [x] Prayer [] Active listening [] Non-anxious presence [x] Spiritual/emotional support [] Crisis/trauma care [] Spiritual counseling [] Bereavement support [] Provided bereavement packet [] Provided Bible/devotional materials [] Provided toy/stuffed animal, coloring book to patient or family member [] Provided Communion [] Anointing/[place] [] Salvation [x] Completed spiritual assessment [] Other: Impact on Illness or Injury [] Angry [] Fearful [] Anxious [] Often cries [] Exhaustion [] Unable to work [] Unable to attend episcopalian [] Unable to walk/stand [] Unable to read [] Unable to drive [] Unable to eat/drink [] Unable to sleep [] Unable to be with family [] Patient intubated [] Other: Summary Time spent with patient 5 min
--- NOTE | 2022-07-08 10:22 | ECG_ITS ---
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 Measurements Intervals [place] Rate: 72 P: 62 [place]: 227 QRS: 97 QRSD: 200 T: -17 QT: 472 QTc: 518 Interpretive Statements SINUS RHYTHM WITH FIRST DEGREE AV BLOCK RIGHT BUNDLE BRANCH BLOCK [120+ ms QRS DURATION, UPRIGHT V1, 40+ ms S IN I/aVL/V4/V5/V6] Compared to ECG 07/08/2022 09:06:43 First degree AV block now present Electronically Signed On 07-08-2022 13:08:19 CDT by Parish Lea M.D. [id number]
[2022-07-08 11:25] LABS: Troponin 5 2HR 83.47 ng/L (0-15)
[2022-07-08 11:26] LABS: Troponin 5 2HR Delta -1.53 ABS# (0-10)
--- NOTE | 2022-07-08 14:15 | ECG_ITS ---
[facility] Test Date: 2022-07-08 Pat Name: Armando Coleman Department: Room: 251 Gender: Male Eyeglass Cutter: : 1955 Requested By: Kulwant Guerin Order Number: [id number] Johanny MD: Parish Lea M.D. Measurements Intervals [place] Rate: 64 P: 29 NM: 210 QRS: 88 QRSD: 193 T: -59 QT: 495 QTc: 512 Interpretive Statements SINUS RHYTHM WITH FIRST DEGREE AV BLOCK INTRAVENTRICULAR CONDUCTION DELAY [130+ ms QRS DURATION] POSSIBLE RIGHT VENTRICULAR HYPERTROPHY [SOME/ALL OF: PROMINENT R IN V1, LATE TRANSITION, RAD, ADRIANA, SSS] INFERIOR MYOCARDIAL INFARCTION , OF INDETERMINATE AGE [40+ ms Q WAVE AND/OR ST/T ABNORMALITY IN II/aVF] Compared to ECG 07/08/2022 10:23:32 Intraventricular conduction delay now present Myocardial infarct finding now present Right bundle-branch block no longer present Electronically Signed On 07-09-2022 11:56:31 CDT by Parish Lea M.D. [id number]
--- NOTE | 2022-07-08 14:34 | PM.PN ---
Subjective Subjective: patient was seen this morning, he denies fever, no chills, he tells me he had a test done through outside physician and he was told he had ecoli he isnot sure if it is the stool or urine Vitals/I&O/Wt Last Vital Signs Temp 97.8 F 07/08/22 12:00 Pulse 69 07/08/22 12:00 Resp 17 07/08/22 12:00 BP 97/58 07/08/22 12:00 Pulse Ox 90 07/08/22 12:00 O2 Del Method 07/08/22 12:00 O2 Flow Rate 2 07/08/22 08:00 07/07/22 07/08/22 07/08/22 22:59 06:59 14:59 Intake Total 50 / 50 880 / 930 1020 / 1020 Output Total 1000 / 1000 850 / 1850 Balance -950 / -950 30 / -920 1020 / 1020 Weight last 48 hrs Weight 127.459 kg Weight 127.006 kg Physical Exam Const: COMMON NORMALS: no acute distress and patient oriented x3 Resp: COMMON NORMALS: normal respiratory effort, No retractions, No use of accessory muscles and clear to auscultation bilaterally AUSCULTATION: clear to auscultation bilaterally Cardio: COMMON NORMALS: regular rate, regular rhythm, S1 normal heart sound present and S2 normal heart sound present RATE: regular rate RHYTHM: regular rhythm HEART SOUNDS: S1 normal heart sound present and S2 normal heart sound present GI: COMMON NORMALS: Normal to inspection, nondistended, normoactive bowel sounds present and non-tender Extremity: NARRATIVE EXTREMITY EXAM: bilateral lower extermity 1+ pitting edema, and cellulitis Neuro: COMMON NORMALS: patient oriented x3 Psych: COMMON NORMALS: mental status grossly normal Urinary Catheter Management: Barros: Cath Placed During This Visit: yes Reason for Continuing Indwelling Catheter: Accurate Measurement of Urinary Output in Critically Ill Patients Urinary Catheter Date of Insertion: 07/07/22 Urinary Catheter Time of Insertion: 18:10 Data 07/08/22 05:00 07/08/22 08:50 Micro: Microbiology 07/08/22 00:51 Gram Stain - Final Leg - #1 07/07/22 17:51 Blood Culture - Preliminary Blood SPECIMEN COLLECTED 07/07/22 17:42 Blood Culture - Preliminary Blood SPECIMEN COLLECTED A&P Assessment and plan (1) Complicated urinary tract infection: (2) Dehydration: (3) Diarrhea: (4) Hypoxia: (5) History of colon polyps: (6) CHF (congestive heart failure): (7) HTN (hypertension): (8) Coronary artery disease: (9) Chronic kidney disease: (10) Hyperlipidemia: (11) Multiple sclerosis: (12) Skin ulcer: (13) Cellulitis: (14) Hyponatremia: Plan #Cellulitis, intertrigo pannus, pelvis, scrotum #UTI #Chronic congestive heart failure, diastolic #Generalized anasarca, scrotal edema #Coronary artery disease status post stent November 2021 #Multiple sclerosis #Neurogenic bladder, self caths at home #CKD #Hyperlipidemia #Hypertension #Hyponatremia #Hypoalbuminemia #Leukocytosis most likely secondary to cellulitis ? coutinue vancomycin and Zosyn for cellulitis. De-escalate to Augmentin as clinically improves ? Interdry sheets between skin folds to be applied ? Nystatin powder for skin folds ? Scrotal ultrasound done last week patient no acute pathology identified. Edema most likely secondary to generalized anasarca and CHF. Lungs are clear to auscultation. Patient on room air laying flat. ? Continue hydralazine 25 3 times daily, losartan daily, aspirin, atorvastatin ? Continue Coreg -Check blood cultures, urine culture ? Place Barros catheter for accurate output and neurogenic bladder. Self caths at home. ? Vitals every 4 hours ? PT OT. Patient interested in SNF. States he is bedbound and uses an electric scooter and also has a wheelchair. His girlfriend helps him get around if needed however he states he does not move much. ? Will need wound care. ? Check urine osmolality, serum osmolality, urine sodium Full code Heparin SQ twice daily, SCDs Attestations Medical Necessity Statement*: patient requires hospitalization for uti and cellulitis Diagnoses Complicated urinary tract infection N39.0 Dehydration E86.0 Diarrhea R19.7 Hypoxia R09.02 History of colon polyps Z86.010 CHF (congestive heart failure) I50.9 HTN (hypertension) I10 Coronary artery disease I25.10 Chronic kidney disease N18.9 Hyperlipidemia E78.5 Multiple sclerosis G35 Skin ulcer L98.499 Cellulitis L03.90 Hyponatremia E87.1
[2022-07-08 15:19] LABS: Troponin 5 6HR 88.26 ng/L (0-15)
[2022-07-08 15:34] LABS: Troponin 5 6HR Delta 3.26 ng/L (0-12)
[2022-07-08] MEDS: atorvastatin 40 mg Tablet PO (18:27)
--- NOTE | 2022-07-08 18:55 | PC.NURSE ---
Patient is currently laying in bed. This nurse has repositioned patients legs throughout shift. This nurse and CNAs have tried to turn patient since 1800 to see if he needed cleaned and he refused and said, I will if you give me a cigarette and ashtray . Call light and table are within reach.
[2022-07-08 19:25] LABS: Sodium 123 mmol/L (136-145)
[2022-07-09] VITALS (8 sets, daily range): BP systolic 94–113; BP diastolic 60–69; PULSE 65–75; RESP 15–20; TEMP 36.5–36.8; O2SAT 90–97
[2022-07-09] MEDS: FUROsemide 10 mg/mL SDV 4mL 40 MG IVP (00:25)
[2022-07-09] MEDS: heparin 5,000 unit/mL INJ 1 mL 5000 UNIT SUBCUT ×3 (00:25→23:27)
[2022-07-09] MEDS: vancomycin 1,250 MG/250 ML PIGGYBACK 250 MG IV (00:25)
[2022-07-09] MEDS: nicotine 2 mg Gum BUCCAL ×7 (00:25→18:26)
[2022-07-09] MEDS: piperacillin-tazobactam 3.375 GM in sodium chloride 0.9% (plus) 50 ML IV ×4 (00:35→23:27)
[2022-07-09 05:00] LABS: Basophils # 0.1 10^3/uL (0.0-0.1); Basophils % 0.8 %; Eosinophils # 0.3 10^3/uL (0.0-0.8); Eosinophils % 2.7 %; Hematocrit 35.6 % (42.0-52.0); Hemoglobin 11.1 g/dL (11.7-16.6); Lymphocytes % 9.1 %; Mean Corpuscular HGB Conc 31.2 g/dL (30.0-36.0); Mean Corpuscular Hemoglobin 25.8 pg (28.0-34.0); Mean Corpuscular Volume 82.6 fl (80-94); Mean Platelet Volume 10.3 fL (7.4-10.4); Monocytes # 1.2 10^3/uL (0.2-0.9); Monocytes % 10.5 %; Neutrophils # 8.72 10^3/uL (1.8-7.7); Neutrophils % 76.4 %; Nucleated Red Blood Cells % 0 %; Platelet Count 330 10^3/cmm (130-400); Red Blood Count 4.31 10^6/uL (4.1-5.3); Red Cell Distribution Width 19.4 % (12.1-15.1); White Blood Count 11.4 10^3/uL (4.0-10.0)
[2022-07-09 05:31] LABS: Anion Gap 16.8 (5-19); Blood Urea Nitrogen 32 mg/dL (8-23); Calcium 8.6 mg/dL (8.5-10.5); Carbon Dioxide 26 mmol/L (22-29); Chloride 91 mmol/L (98-107); Glomerular Filtration Rate 43.2 mL/min (90-130); Glucose 114 mg/dL (65-115); Osmolality Calculated 278 mOsm/kg (285-295); Potassium 3.8 mmol/L (3.5-5.1); Sodium 130 mmol/L (136-145)
--- NOTE | 2022-07-09 05:54 | PC.NURSE ---
Patient initially refused to let this nurse turn him, bathe him, and assess him. This nurse educated the patient on the importance of turning, assessment, and bathing. After education, the patient reluctantly agreed. Upon turning and assessment, the patient asked how bad his sacral area looked. This nurse explained that the sacral wound looked quite severe and that a medical doctor would be made aware of the severity of the wound. The patient begged this nurse not to inform the doctor. This nurse educated the importance of notifying the doctor and explained that a wound of this severity is a serious health and infection risk. The patient reluctantly agreed after education.
[2022-07-09] MEDS: clopidogrel 75 mg Tablet PO (06:18)
--- NOTE | 2022-07-09 07:39 | USCV_ITS ---
Armando Coleman Age: 67 Gender: M : 1955 Exam Date: 07/09/2022 13:18 Ordering Phys: Kulwant Guerin MD Technologist: Federico Espinoza Exam Location: [facility] [place] Indication: nstemi BP: 96 / 60 HR: 81 Rhythm: Sinus Technical Quality: Adequate MEASUREMENTS (Male / Female) Normal Values 2D ECHO LV Diastolic Diameter PLAX 5.8 cm 4.2 - 5.9 / 3.9 - 5.3 cm LV Systolic Diameter PLAX 4.6 cm IVS Diastolic Thickness 1.8 cm 0.6 - 1.0 / 0.6 - 0.9 cm IVS Systolic Thickness 1.8 cm LVPW Diastolic Thickness 1.5 cm 0.6 - 1.0 / 0.6 - 0.9 cm LVPW Systolic Thickness 2.3 cm LVOT Diameter 2.1 cm LV Ejection Fraction 2D Teich 40.3 % LV Ejection Fraction MOD 2C 42.6 % LV Ejection Fraction 2C AL 41.5 % LA Diameter 4.7 cm IVC Diameter 2.2 cm M-MODE Aortic Annulus Diameter 3.1 cm LA Ao Ratio MM 1.6 MV E Point Septal Separation 1.3 cm DOPPLER AV Peak Velocity 200.7 cm/s LVOT Peak Velocity 99.0 cm/s AV Area Cont Eq vti 2.0 cm squared AV Area Cont Eq pk 1.7 cm squared MV Area PHT 5.0 cm squared Mitral E to A Ratio 1.6 MV E' Velocity 65.5 cm/s Mitral E to MV E' Ratio 13.5 Mitral E to LV E' Lateral Ratio 10.9 Mitral E to LV E' Septal Ratio 17.6 TR Peak Velocity 171.7 cm/s TR Peak Gradient 11.8 mmHg TV Peak E Velocity 82.0 cm/s Right Atrial Pressure 3.0 mmHg Pulmonary Artery Systolic Pressu 14.8 mmHg RV Acceleration Time 0.1 s FINDINGS Left Ventricle Mildly dilated left ventricle with a diminished ejection fraction of around 40%. Moderate diffuse hypokinesia of the inferolateral wall segment.Grade III/IV diastolic dysfunction (restrictive filling pattern), severely elevated filling pressures. Right Ventricle Not visualized well. Possibly of normal size with normal ejection fraction Right Atrium Possibly of normal size Left Atrium Mildly increased left atrial size. Mitral Valve Thickened mitral valve. Mild-moderate mitral valve regurgitation. Aortic Valve Thickened aortic valve. Trace aortic valve regurgitation. Tricuspid Valve No gross abnormalities noted Pulmonic Valve Pulmonic valve not well visualized. Pericardium No pericardial effusion. Aorta Normal aortic annulus size. IVC Normal inferior vena cava. CONCLUSIONS Mildly dilated left ventricle with a diminished ejection fraction of around 40%. Moderate diffuse hypokinesia of the inferolateral wall segment. Grade III/IV diastolic dysfunction (restrictive filling pattern), severely elevated filling pressures. Thickened mitral valve. Mild-moderate mitral valve regurgitation. Features of aortic valve sclerosis. Mildly increased left atrial size. Trace aortic valve regurgitation. There is no pericardial effusion. There are no intracardiac masses. Compared to the study from 05/11/2020, there may be a significant change in the LV ejection fraction. Dr Debora Sevilla MD FACC (Electronically Signed) Final Date: 09 July 2022 22:48 S
[2022-07-09] MEDS: aspirin 81 mg EC Tablet PO (08:25)
[2022-07-09] MEDS: pantoprazole DR 40 mg Tablet PO (08:25)
[2022-07-09] MEDS: nystatin powder 15 gm Btl 1 APPLIC TOPICAL ×2 (08:26→18:26)
--- NOTE | 2022-07-09 12:45 | P.PN_ITS ---
Subjective Subjective: patient was seen this morning, he wants to know if any of his cultures showed ecoli, denies fevers or chills Vitals/I&O/Wt Last Vital Signs Temp 97.7 F 07/09/22 08:00 Pulse 72 07/09/22 10:24 Resp 15 07/09/22 08:00 BP 113/61 07/09/22 08:00 Pulse Ox 95 07/09/22 10:24 O2 Del Method 07/09/22 10:24 O2 Flow Rate 3 07/09/22 10:24 07/08/22 07/09/22 07/09/22 22:59 06:59 14:59 Intake Total 50 / 1070 300 / 1370 530 / 530 Output Total 250 / 250 2000 / 2250 550 / 550 Balance -200 / 820 -1700 / -880 -20 / -20 Weight last 48 hrs Weight 127.459 kg Weight 127.006 kg Physical Exam Const: COMMON NORMALS: no acute distress and patient oriented x3 Resp: COMMON NORMALS: normal respiratory effort, No retractions, No use of accessory muscles and clear to auscultation bilaterally AUSCULTATION: clear to auscultation bilaterally Cardio: COMMON NORMALS: regular rate, regular rhythm, S1 normal heart sound p resent and S2 normal heart sound present RATE: regular rate RHYTHM: regular rhythm HEART SOUNDS: S1 normal heart sound present and S2 normal heart sound present GI: COMMON NORMALS: Normal to inspection, nondistended, normoactive bowel sounds present and non-tender Extremity: COMMON NORMALS: no pedal edema Neuro: COMMON NORMALS: patient oriented x3 Psych: COMMON NORMALS: mental status grossly normal Urinary Catheter Management: Barros: Cath Placed During This Visit: yes Reason for Continuing Indwelling Catheter: Assist healing open wound Urinary Catheter Date of Insertion: 07/07/22 Urinary Catheter Time of Insertion: 18:10 Data 07/09/22 04:19 07/09/22 04:19 Micro: Microbiology 07/07/22 18:12 Urine Culture - Preliminary Urine,Clean Catch Gram Negative Rods 07/07/22 17:51 Blood Culture - Preliminary Blood NEGATIVE TO DATE 07/07/22 17:42 Blood Culture - Preliminary Blood NEGATIVE TO DATE 07/08/22 00:51 Gram Stain - Final Leg - #1 A&P Assessment and plan (1) Pressure injury of deep tissue of sacral region: (2) Deep tissue injury: (3) Complicated urinary tract infection: (4) Dehydration: (5) Diarrhea: (6) Hypoxia: (7) History of colon polyps: (8) CHF (congestive heart failure): (9) HTN (hypertension): (10) Coronary artery disease: (11) Chronic kidney disease: (12) Hyperlipidemia: (13) Multiple sclerosis: (14) Skin ulcer: (15) Cellulitis: (16) Hyponatremia: (17) SUSHILA (acute kidney injury): (18) NSTEMI (non-ST elevated myocardial infarction): Plan #Cellulitis, intertrigo pannus, pelvis, scrotum #UTI #Chronic congestive heart failure, diastolic #Generalized anasarca, scrotal edema #Coronary artery disease status post stent November 2021 #Multiple sclerosis #Neurogenic bladder, self caths at home #CKD #Hyperlipidemia #Hypertension #Hyponatremia #Hypoalbuminemia #Leukocytosis most likely secondary to cellulitis #SUSHILA #sacral DTI and Lower extremity DTI ? coutinue vancomycin and Zosyn for cellulitis. De-escalate to Augmentin as clinically improves ? Interdry sheets between skin folds to be applied ? Nystatin powder for skin folds ? Scrotal ultrasound done last week patient no acute pathology identified. Edema most likely secondary to generalized anasarca and CHF. Lungs are clear to auscultation. Patient on room air laying flat. ? Continue hydralazine 25 3 times daily, losartan daily, aspirin, atorvastatin ? Continue Coreg -Check blood cultures, urine culture ? Place Barros catheter for accurate output and neurogenic bladder. Self caths a t home. ? Vitals every 4 hours ? PT OT. Patient interested in SNF. States he is bedbound and uses an electric scooter and also has a wheelchair. His girlfriend helps him get around if needed however he states he does not move much. ? Will need wound care. ? hyponatremie resolving -sushila, hold diuretics -nstemi, coutinue statin, plavix, coreg, telemetry monitoring, will order cardiac echo -multiple DTI, hydrofera blue, offloading Full code Heparin SQ twice daily, SCDs Attestations Medical Necessity Statement*: patient requirs hospitaliztion for uti, sacral dti with cellultis, sushila Coding Level of Care Code Acute Code for [facility] Diagnoses Pressure injury of deep tissue of sacral region L89.156 Deep tissue injury T14.8XXA Complicated urinary tract infection N39.0 Dehydration E86.0 Diarrhea R19.7 Hypoxia R09.02 History of colon polyps Z86.010 CHF (congestive heart failure) I50.9 HTN (hypertension) I10 Coronary artery disease I25.10 Chronic kidney disease N18.9 Hyperlipidemia E78.5 Multiple sclerosis G35 Skin ulcer L98.499 Cellulitis L03.90 Hyponatremia E87.1 SUSHILA (acute kidney injury) N17.9 NSTEMI (non-ST elevated myocardial infarction) I21.4
[2022-07-09 14:36] LABS: Osmolality Urine 343 mOsm/kg (50-1200)
[2022-07-09 14:44] LABS: Osmolality Serum 282 mOsm/kg (278-305)
[2022-07-09] MEDS: acetaminophen 325 mg Tablet 650 MG PO (15:10)
[2022-07-09] MEDS: atorvastatin 40 mg Tablet PO (18:26)
[2022-07-10] VITALS (10 sets, daily range): BP systolic 118–144; BP diastolic 71–87; PULSE 68–86; RESP 15–20; TEMP 36.3–36.9; O2SAT 92–98
[2022-07-10] MEDS: acetaminophen 325 mg Tablet 650 MG PO (00:42)
[2022-07-10] MEDS: ropinirole 0.25 mg Tablet 0.5 MG PO ×2 (00:56→20:12)
[2022-07-10] MEDS: clopidogrel 75 mg Tablet PO (05:32)
[2022-07-10 05:43] LABS: Basophils # 0.1 10^3/uL (0.0-0.1); Basophils % 0.8 %; Eosinophils # 0.3 10^3/uL (0.0-0.8); Eosinophils % 3.5 %; Hematocrit 36.7 % (42.0-52.0); Hemoglobin 11.5 g/dL (11.7-16.6); Lymphocytes # 0.9 10^3/uL (0.8-4.8); Lymphocytes % 10.4 %; Mean Corpuscular HGB Conc 31.3 g/dL (30.0-36.0); Mean Corpuscular Hemoglobin 25.5 pg (28.0-34.0); Mean Corpuscular Volume 81.4 fl (80-94); Monocytes # 0.9 10^3/uL (0.2-0.9); Monocytes % 10.6 %; Neutrophils # 6.51 10^3/uL (1.8-7.7); Neutrophils % 74.4 %; Nucleated Red Blood Cells % 0 %; Platelet Count 367 10^3/cmm (130-400); Red Blood Count 4.51 10^6/uL (4.1-5.3); Red Cell Distribution Width 19.4 % (12.1-15.1); White Blood Count 8.8 10^3/uL (4.0-10.0)
[2022-07-10] MEDS: morphine 4 mg/mL SDV 1 mL 2 MG IVP ×2 (05:48→14:15)
[2022-07-10 06:10] LABS: Anion Gap 15.3 (5-19); Blood Urea Nitrogen 33 mg/dL (8-23); Calcium 8.5 mg/dL (8.5-10.5); Carbon Dioxide 27 mmol/L (22-29); Chloride 95 mmol/L (98-107); Glomerular Filtration Rate 40.3 mL/min (90-130); Glucose 115 mg/dL (65-115); NT Pro B Type Natriuretic Pept 8071 pg/mL (0-125); Osmolality Calculated 286 mOsm/kg (285-295); Potassium 3.3 mmol/L (3.5-5.1); Sodium 134 mmol/L (136-145)
--- NOTE | 2022-07-10 07:00 | XR_ITS ---
WS: [id number] XR chest 1V portable [id number] REASON FOR EXAM: sob FINDINGS: The chest appears unchanged compared to 06/25/2022. Cardiomegaly and central and upper lobe pulmonary veins. Diffuse reticular interstitial lung opacities throughout both lungs. XR/XR chest 1V portable [id number] IMPRESSION: Stable abnormal chest. Patient has chronic interstitial changes and it is diffi cult to exclude the superimposition of acute congestive heart failure.
[2022-07-10] MEDS: nicotine 2 mg Gum BUCCAL ×6 (08:15→23:31)
[2022-07-10] MEDS: aspirin 81 mg EC Tablet PO (08:15)
[2022-07-10] MEDS: pantoprazole DR 40 mg Tablet PO (08:15)
[2022-07-10] MEDS: nystatin powder 15 gm Btl 1 APPLIC TOPICAL ×2 (08:16→17:50)
[2022-07-10] MEDS: piperacillin-tazobactam 3.375 GM in sodium chloride 0.9% (plus) 50 ML IV ×3 (08:16→23:31)
[2022-07-10] MEDS: potassium chloride ER 20 mEq Tablet 40 MEQ PO (09:20)
[2022-07-10] MEDS: heparin 5,000 unit/mL INJ 1 mL 5000 UNIT SUBCUT ×2 (11:47→23:31)
--- NOTE | 2022-07-10 11:47 | PM.CONSULT ---
Providers/Reason For Consult Consulting Physician/Specialty*: Hospitalist Reason for Consult*: Perirectal wound Attending Physician: Kulwant Guerin MD Primary Care Provider: Kylie Vogel History of Present Illness History of Present Illness Armando Coleman is a 67 year old male with multiple medical problems including congestive heart failure. The patient has not walked for over 2 months. The patient's been bed ridden. The exact reason for this is unclear. It may be secondary to his congestive heart failure. The patient is admitted for possible urosepsis. The patient is doing self caths at home. The patient has a neurogenic bladder. The patient does not have diabetes. Review of Systems General: Reports: 10 or more systems reviewed and unremarkable except in HPI and below Medications/Allergies Home Medications Medication Instructions Recorded Confirmed Last Taken Type nitroglycerin 0.4 mg sublingual 0.4 mg sublingual Q5M PRN chest 04/27/19 07/08/22 11/21/21 Rx tablet pain #30 tabs 20 tabs per pt & wif atorvastatin 40 mg tablet 40 mg PO QPM 11/22/21 07/08/22 06/21/22 History losartan 100 mg tablet 100 mg PO QAM 11/22/21 07/08/22 01/21/22 History carvedilol 6.25 mg tablet 12.5 mg PO BID@0900,2100 #180 tabs 11/24/21 07/08/22 06/21/22 Rx clopidogrel 75 mg tablet 75 mg PO QAM #90 tabs 11/24/21 07/08/22 06/21/22 Rx furosemide 40 mg tablet 40 mg PO BID 04/27/22 07/08/22 06/21/22 History hydralazine 25 mg tablet 25 mg PO TID #90 tabs 04/29/22 07/08/22 06/21/22 Rx metolazone 10 mg tablet 10 mg PO DAILY 07/08/22 07/08/22 Unknown History nitrofurantoin 100 mg PO BID 07/08/22 07/08/22 Unknown History monohydrate/macrocrystals 100 mg capsule potassium chloride 20 mEq 20 meq PO DAILY 07/08/22 07/08/22 Unknown History tablet,extended release(part/cryst) Allergies Allergy/AdvReac Type Severity Reaction Status Date / Time No Known Allergies Allergy Verified 06/21/22 14:23 Current Medications Generic Name Dose Route Start Last Admin Trade Name Tonia PRN Reason Stop Dose Admin Acetaminophen 650 mg 07/07/22 23:28 07/10/22 00:42 Acetaminophen 325 Mg Tablet PO 650 mg Q6H PRN Administration Mild/Mod Pain Or Temp >/= 101 Aspirin 81 mg 07/08/22 09:00 07/10/22 08:15 Aspirin 81 Mg Ec Tablet PO 81 mg DAILY EM Administration Atorvastatin Calcium 40 mg 07/08/22 18:00 07/09/22 18:26 Atorvastatin 40 Mg Tablet PO 40 mg QPM EM Administration Carvedilol 12.5 mg 07/08/22 09:00 07/08/22 23:03 Carvedilol 6.25 Mg Tablet PO 12.5 mg BID@0900,2100 EM Administration Clopidogrel Bisulfate 75 mg 07/08/22 06:00 07/10/22 05:32 Clopidogrel 75 Mg Tablet PO 75 mg QAM EM Administration Heparin Sodium (Porcine) 5,000 unit 07/07/22 23:30 07/09/22 23:27 Heparin 5,000 Unit/Ml Inj 1 Ml SUBCUT 5,000 unit Q12H EM Administration Piperacillin Sod/Tazobactam 50 mls @ 12.5 mls/hr 07/07/22 23:45 07/10/22 08:16 Sod 3.375 gm/ Sodium Chloride IV 12.5 mls/hr Q8H EM Administration Vancomycin/PEG/NADA/Lysine/Water 1,250 mg in 250 mls @ 200 mls/hr 07/09/22 18:00 07/09/22 18:30 Vancocin IV Not Given Q18H [facility] Morphine Sulfate 2 mg 07/10/22 00:50 07/10/22 05:48 Morphine 4 Mg/Ml Sdv 1 Ml IVP 2 mg Q4H PRN Administration SEVERE PAIN Nicotine Polacrilex 2 mg 07/08/22 01:45 07/10/22 08:15 Nicotine 2 Mg Gum BUCCAL 2 mg Q2H EM Administration Nystatin 1 applic 07/08/22 09:00 07/10/22 08:16 Nystatin Powder 15 Gm Btl TOPICAL 1 applic BID EM Administration Pantoprazole Sodium 40 mg 07/08/22 09:00 07/10/22 08:[address] 40 Mg Tablet PO 40 mg DAILY EM Administration Ropinirole HCl 0.5 mg 07/10/22 00:50 07/10/22 00:56 Ropinirole 0.25 Mg Tablet PO 0.5 mg BEDTIME EM Administration PFSH Acute PFSH: Medical History (Updated 07/10/22 @ 11:56 by Chente Mack MD) Acute on chronic renal failure Acute on chronic urinary retention Cardiomyopathy Cellulitis CHF (congestive heart failure) Chronic kidney disease Coronary artery disease Encephalopathy Falls frequently History of non-ST elevation myocardial infarction (NSTEMI) HTN (hypertension) Hyperlipidemia Hypothermia Ischemic cardiomyopathy Lactic acidosis Lacunar infarction Multiple sclerosis Multiple sclerosis Multiple sclerosis Periorbital edema of both eyes Skin ulcer Tobacco dependency Troponin level elevated Urinary retention Surgical History History of esophagogastroduodenoscopy (EGD) Hx of colonoscopy with polypectomy Hx of heart artery stent stents x 2017- unknown vessels Family History Sister Heart disease Hypertension Myocardial infarction Mother Cancer Daughter Myocardial infarction Social History Smoking and tobacco status: current every day smoker cigarettes Packs smoked per day: 0.5 [ Other cigarette details: Cutting down] Alcohol intake: never Adopted: No Caregiver/support person: No Lives independently: No Marital status: Single Vitals/I&O/Wt Last Vital Signs Temp 97.4 F L 07/10/22 08:00 Pulse 77 07/10/22 09:05 Resp 16 07/10/22 08:00 BP 144/83 07/10/22 08:00 Pulse Ox 92 07/10/22 09:05 O2 Del Method 07/10/22 09:05 O2 Flow Rate 3 07/10/22 09:05 07/09/22 07/10/22 07/10/22 22:59 06:59 14:59 Intake Total 50 / 700 170 / 870 Output Total 800 / 1850 800 / 2650 900 / 900 Balance -750 / -1150 -630 / -1780 -900 / -900 Physical Exam Narrative: Generally: No acute distress. The patient was sleeping when I walked in the room HEENT is no cephalic atraumatic Lungs: Clear to auscultation. I do not appreciate any wheezes or rales Heart: Regular rate and rhythm Abdomen: Morbidly obese, soft, nontender. The patient has no hepatosplenomegaly. There are no hernias that I can appreciate. There is no costovertebral angle tenderness Sacral/perirectal region: The patient has a large area which has denuded skin. He has granulation tissue in this area. Extremities: Patient has decreased pulses in both feet. Neurologic: The patient is awake, alert, oriented x3. The patient's [place] Coma Scale is 15. The patient sensations intact to light touch throughout. Urinary Catheter Management: Barros: Cath Placed During This Visit: yes Reason for Continuing Indwelling Catheter: Accurate Measurement of Urinary Output in Critically Ill Patients Urinary Catheter Date of Insertion: 07/07/22 Urinary Catheter Time of Insertion: 18:10 Data 07/10/22 05:19 07/10/22 05:19 Micro: Microbiology 07/08/22 00:51 Gram Stain - Final Leg - #1 Wound Culture - Preliminary 07/07/22 18:12 Urine Culture - Preliminary Urine,Clean Catch Gram Negative Rods Attestation for Other Data: I personally reviewed and interpreted the following: (All labs over the last 24 to 48 hours) A&P Assessment and plan (1) Pressure injury of deep tissue of sacral region: This patient needs extensive rehab. The best thing would be to get the patient up and get him off of his sacral region. The patient cannot lay in stool. Would suggest Mepilex dressings or something similar. The patient needs to relieve pressure on this region. The patient should stay on his side is much as possible. The patient needs a bed that is specially designed to relieve pressure. The patient should not be in a wheelchair that does not relieve pressure. Please reconsult for questions or concerns. I do not believe this patient requires surgical intervention at this time. Coding Level of Care Code Acute Code for [facility] Diagnoses Pressure injury of deep tissue of sacral region L89.156
[2022-07-10] MEDS: vancomycin 1,250 MG/250 ML PIGGYBACK 200 MG IV (11:48)
--- NOTE | 2022-07-10 14:22 | PM.PN ---
Subjective Subjective: Patient was seen this morning, he has no complaints except that I have had him on fluid restrictions Vitals/I&O/Wt Last Vital Signs Temp 97.6 F 07/10/22 12:00 Pulse 72 07/10/22 12:00 Resp 18 07/10/22 14:15 BP 121/75 07/10/22 12:00 Pulse Ox 98 07/10/22 12:00 O2 Del Method 07/10/22 12:00 O2 Flow Rate 3 07/10/22 09:05 07/09/22 07/10/22 07/10/22 22:59 06:59 14:59 Intake Total 50 / 700 170 / 870 300 / 300 Output Total 800 / 1850 800 / 2650 1500 / 1500 Balance -750 / -1150 -630 / -1780 -1200 / -1200 Physical Exam Const: COMMON NORMALS: no acute distress and patient oriented x3 Resp: COMMON NORMALS: normal respiratory effort, No retractions, No use of accessory muscles and clear to auscultation bilaterally AUSCULTATION: clear to auscultation bilaterally Cardio: COMMON NORMALS: regular rate, regular rhythm, S1 normal heart sound present and S2 normal heart sound present RATE: regular rate RHYTHM: regular rhythm HEART SOUNDS: S1 normal heart sound present and S2 normal heart sound present GI: COMMON NORMALS: Normal to inspection, nondistended, normoactive bowel sounds present and non-tender Back/Pelvis: OTHER: Multiple sacral DTI's, superficial abrasions -1 sacral DTI, potentially needing debridement Extremity: COMMON NORMALS: no pedal edema Neuro: COMMON NORMALS: patient oriented x3 Psych: COMMON NORMALS: mental status grossly normal Urinary Catheter Management: Barros: Cath Placed During This Visit: yes Reason for Continuing Indwelling Catheter: Accurate Measurement of Urinary Output in Critically Ill Patients Urinary Catheter Date of Insertion: 07/07/22 Urinary Catheter Time of Insertion: 18:10 Data 07/10/22 05:19 07/10/22 05:19 Micro: Microbiology 07/08/22 00:51 Gram Stain - Final Leg - #1 Wound Culture - Preliminary 07/07/22 18:12 Urine Culture - Preliminary Urine,Clean Catch Gram Negative Rods A&P Assessment and plan (1) Pressure injury of deep tissue of sacral region: (2) Deep tissue injury: (3) Complicated urinary tract infection: (4) Dehydration: (5) Diarrhea: (6) Hypoxia: (7) History of colon polyps: (8) CHF (congestive heart failure): (9) HTN (hypertension): (10) Coronary artery disease: (11) Chronic kidney disease: (12) Hyperlipidemia: (13) Multiple sclerosis: (14) Skin ulcer: (15) Cellulitis: (16) Hyponatremia: (17) SUSHILA (acute kidney injury): (18) NSTEMI (non-ST elevated myocardial infarction): Plan #Cellulitis, intertrigo pannus, pelvis, scrotum #UTI #Chronic congestive heart failure, diastolic #Generalized anasarca, scrotal edema #Coronary artery disease status post stent November 2021 #Multiple sclerosis #Neurogenic bladder, self caths at home #CKD #Hyperlipidemia #Hypertension #Hyponatremia #Hypoalbuminemia #Leukocytosis most likely secondary to cellulitis #SUSHILA #sacral DTI and Lower extremity DTI ? coutinue vancomycin and Zosyn for cellulitis. De-escalate to Augmentin as clinically improves ? Interdry sheets between skin folds to be applied ? Nystatin powder for skin folds ? Scrotal ultrasound done last week patient no acute pathology identified. Edema most likely secondary to generalized anasarca and CHF. Lungs are clear to auscultation. Patient on room air laying flat. ? Continue hydralazine 25 3 times daily, losartan daily, aspirin, atorvastatin ? Continue Coreg -Check blood cultures, urine culture ? Place Barros catheter for accurate output and neurogenic bladder. Self caths at home. ? Vitals every 4 hours ? PT OT. Patient interested in SNF. States he is bedbound and uses an electric scooter and also has a wheelchair. His girlfriend helps him get around if needed however he states he does not move much. ? Will need wound care. ? hyponatremie resolving -sushila, hold diuretics -nstemi, coutinue statin, plavix, coreg, telemetry monitoring, will order cardiac echo -multiple DTI, hydrofera blue, offloading, consult surgery for possible debridement Full code Heparin SQ twice daily, SCDs Attestations Medical Necessity Statement*: Patient requires observation for cellulitis, UTI Diagnoses Pressure injury of deep tissue of sacral region L89.156 Deep tissue injury T14.8XXA Complicated urinary tract infection N39.0 Dehydration E86.0 Diarrhea R19.7 Hypoxia R09.02 History of colon polyps Z86.010 CHF (congestive heart failure) I50.9 HTN (hypertension) I10 Coronary artery disease I25.10 Chronic kidney disease N18.9 Hyperlipidemia E78.5 Multiple sclerosis G35 Skin ulcer L98.499 Cellulitis L03.90 Hyponatremia E87.1 SUSHILA (acute kidney injury) N17.9 NSTEMI (non-ST elevated myocardial infarction) I21.4
[2022-07-10] MEDS: atorvastatin 40 mg Tablet PO (17:49)
--- NOTE | 2022-07-10 20:48 | PC.NURSE ---
This nurse went to complete her assessment on the patient. The patient began angrily demanding ice and water. This nurse explained his fluid restriction and the amount of fluid he is allowed for this 24 hour period. 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 I'm going to have a talk with that doctor tomorrow and you wait and see. I'll be allowed to have as much water as I want, I'll say whatever I need to say to make it happen. This nurse re-educated the patient on fluid restriction and why he is on it regarding his health issues. The patient stated he did not care. He then stated If I and you put me on life support your going to pump me full of that stuff? I don't want it. Pull the plug and let me have water!
[2022-07-11] VITALS (14 sets, daily range): BP systolic 126–167; BP diastolic 58–96; PULSE 71–86; RESP 14–22; TEMP 36.5–37.2; O2SAT 90–99
[2022-07-11] MEDS: morphine 4 mg/mL SDV 1 mL 2 MG IVP ×3 (00:10→08:54)
[2022-07-11] MEDS: acetaminophen 325 mg Tablet 650 MG PO ×2 (02:23→21:10)
[2022-07-11] MEDS: clopidogrel 75 mg Tablet PO (05:04)
[2022-07-11] MEDS: vancomycin 1,250 MG/250 ML PIGGYBACK 200 MG IV (05:04)
[2022-07-11] MEDS: nystatin powder 15 gm Btl 1 APPLIC TOPICAL ×2 (05:05→16:31)
[2022-07-11 05:56] LABS: Basophils # 0.1 10^3/uL (0.0-0.1); Basophils % 0.9 %; Eosinophils # 0.3 10^3/uL (0.0-0.8); Eosinophils % 3.7 %; Hemoglobin 11.5 g/dL (11.7-16.6); Lymphocytes # 0.8 10^3/uL (0.8-4.8); Lymphocytes % 8.4 %; Mean Corpuscular HGB Conc 31.1 g/dL (30.0-36.0); Mean Corpuscular Hemoglobin 25.5 pg (28.0-34.0); Mean Platelet Volume 9.8 fL (7.4-10.4); Monocytes % 11.1 %; Neutrophils # 6.67 10^3/uL (1.8-7.7); Neutrophils % 75.2 %; Nucleated Red Blood Cells % 0 %; Platelet Count 371 10^3/cmm (130-400); Red Blood Count 4.51 10^6/uL (4.1-5.3); Red Cell Distribution Width 19.3 % (12.1-15.1); White Blood Count 8.9 10^3/uL (4.0-10.0)
[2022-07-11 06:28] LABS: Anion Gap 14.2 (5-19); Blood Urea Nitrogen 29 mg/dL (8-23); Calcium 8.5 mg/dL (8.5-10.5); Carbon Dioxide 28 mmol/L (22-29); Chloride 95 mmol/L (98-107); Glomerular Filtration Rate 46.5 mL/min (90-130); Glucose 117 mg/dL (65-115); NT Pro B Type Natriuretic Pept 13713 pg/mL (0-125); Osmolality Calculated 285 mOsm/kg (285-295); Potassium 3.2 mmol/L (3.5-5.1); Sodium 134 mmol/L (136-145)
[2022-07-11] MEDS: piperacillin-tazobactam 3.375 GM in sodium chloride 0.9% (plus) 50 ML IV ×2 (08:53→15:10)
[2022-07-11] MEDS: pantoprazole DR 40 mg Tablet PO (08:54)
[2022-07-11] MEDS: aspirin 81 mg EC Tablet PO (08:54)
[2022-07-11] MEDS: heparin 5,000 unit/mL INJ 1 mL 5000 UNIT SUBCUT ×2 (11:45→23:34)
--- NOTE | 2022-07-11 15:21 | P.PN_ITS ---
Subjective Subjective: Patient was seen this morning, I discussed his echocardiogram findings, with decreased ejection fraction, and wall motion abnormalities, he tells me he does not want to do anything about it, he wants to leave it alone, discussed morbidity and mortality associated with cardiac events, he tells me t hat he just does not want to do anything about it and he understands the risks, he denies any chest pain, no shortness of breath, Vitals/I&O/Wt Last Vital Signs Temp 98.1 F 07/11/22 12:00 Pulse 76 07/11/22 14:00 Resp 20 H 07/11/22 12:00 BP 134/76 07/11/22 12:00 Pulse Ox 96 07/11/22 12:00 O2 Del Method 07/11/22 12:00 O2 Flow Rate 2 07/11/22 12:00 07/11/22 07/11/22 07/11/22 06:59 14:59 22:59 Intake Total 400 / 1530 1141 / 1141 Output Total 1400 / 3800 Balance -1000 / -2270 1141 / 1141 Physical Exam Const: COMMON NORMALS: no acute distress and patient oriented x3 Resp: COMMON NORMALS: normal respiratory effort, No retractions, No use of accessory muscles and clear to auscultation bilaterally AUSCULTATION: clear to auscultation bilaterally Cardio: COMMON NORMALS: regular rate, regular rhythm, S1 normal heart sound present and S2 normal heart sound present RATE: regular rate RHYTHM: regular rhythm HEART SOUNDS: S1 normal heart sound present and S2 normal heart sound present GI: COMMON NORMALS: Normal to inspection, nondistended, normoactive bowel sounds present and non-tender Extremity: NARRATIVE EXTREMITY EXAM: 1+ pitting edema, has weeping edema, Along calves Neuro: COMMON NORMALS: patient oriented x3 Psych: COMMON NORMALS: mental status grossly normal Urinary Catheter Management: Barros: Cath Placed During This Visit: yes Reason for Continuing Indwelling Catheter: Acute Urinary Retention or Obstruction Urinary Catheter Date of Insertion: 07/07/22 Urinary Catheter Time of Insertion: 18:10 Data 07/11/22 05:44 07/11/22 05:44 Micro: Microbiology 07/08/22 00:51 Gram Stain - Final Leg - #1 Wound Culture - Preliminary Gram Negative Rods Gram Negative Rods#2 07/07/22 18:12 Urine Culture - Final Urine,Clean Catch Enterobacter cloacae A&P Assessment and plan (1) Pressure injury of deep tissue of sacral region: (2) Deep tissue injury: (3) Complicated urinary tract infection: (4) Dehydration: (5) Diarrhea: (6) Hypoxia: (7) History of colon polyps: (8) CHF (congestive heart failure): (9) HTN (hypertension): (10) Coronary artery disease: (11) Chronic kidney disease: (12) Hyperlipidemia: (13) Multiple sclerosis: (14) Skin ulcer: (15) Cellulitis: (16) Hyponatremia: (17) SUSHILA (acute kidney injury): (18) NSTEMI (non-ST elevated myocardial infarction): Plan #Cellulitis, intertrigo pannus, pelvis, scrotum #UTI #Chronic congestive heart failure, diastolic #Generalized anasarca, scrotal edema #Coronary artery disease status post stent November 2021 #Multiple sclerosis #Neurogenic bladder, self caths at home #CKD #Hyperlipidemia #Hypertension #Hyponatremia #Hypoalbuminemia #Leukocytosis most likely secondary to cellulitis #SUSHILA #sacral DTI and Lower extremity DTI -Urine culture showing Enterobacter, fairly resistant to penicillins, switch to ciprofloxacin ? De-escalate to doxycycline ? Interdry sheets between skin folds to be applied ? Nystatin powder for skin folds ? Scrotal ultrasound done last week patient no acute pathology identified. Edema most likely secondary to generalized anasarca and CHF. Lungs are clear to auscultation. Patient on room air laying flat. ? Continue hydralazine 25 3 times daily, losartan daily, aspirin, atorvastatin ? Continue Coreg ? Place Barros catheter for accurate output and neurogenic bladder. Self caths at home. ? Vitals every 4 hours ? PT OT. Patient interested in SNF. States he is bedbound and uses an electric scooter and also has a wheelchair. His girlfriend helps him get around if needed however he states he does not move much. ? Will need wound care. ? hyponatremie resolving -Has lower extremity edema 1 dose of Lasix -nstemi, coutinue statin, plavix, coreg, telemetry monitoring, cardiac echo shows EF of 40%, with moderate diffuse hypokinesia of the inferior lateral wall segment, patient does not want any interventions at this time, understands risks, understands morbidity and mortality, I will have him follow-up with cardiology as outpatient -multiple DTI, hydrofera blue, offloading, consult surgery for possible debridement Full code Heparin SQ twice daily, SCDs Attestations Medical Necessity Statement*: Patient requires hospitalization for cellulitis, UTI Diagnoses Pressure injury of deep tissue of sacral region L89.156 Deep tissue injury T14.8XXA Complicated urinary tract infection N39.0 Dehydration E86.0 Diarrhea R19.7 Hypoxia R09.02 History of colon polyps Z86.010 CHF (congestive heart failure) I50.9 HTN (hypertension) I10 Coronary artery disease I25.10 Chronic kidney disease N18.9 Hyperlipidemia E78.5 Multiple sclerosis G35 Skin ulcer L98.499 Cellulitis L03.90 Hyponatremia E87.1 SUSHILA (acute kidney injury) N17.9 NSTEMI (non-ST elevated myocardial infarction) I21.4
[2022-07-11] MEDS: FUROsemide 10 mg/mL SDV 4mL 40 MG IVP (16:31)
[2022-07-11] MEDS: potassium chloride ER 20 mEq Tablet 40 MEQ PO (16:31)
[2022-07-11] MEDS: doxycycline 100 mg Tablet PO (16:31)
[2022-07-11] MEDS: atorvastatin 40 mg Tablet PO (16:31)
[2022-07-11] MEDS: nicotine 2 mg Gum BUCCAL ×2 (20:49→23:34)
[2022-07-11] MEDS: ciprofloxacin 500 mg Tablet 250 MG PO (20:49)
[2022-07-11] MEDS: ropinirole 0.25 mg Tablet 0.5 MG PO (20:49)
[2022-07-11 23:03] LABS: Vancomycin Trough 22.8 ug/mL (10-15)
[2022-07-12] VITALS (7 sets, daily range): BP systolic 116–172; BP diastolic 72–102; PULSE 58–88; RESP 16–18; TEMP 36.3–36.6; O2SAT 86–96
[2022-07-12 04:43] LABS: Basophils # 0.1 10^3/uL (0.0-0.1); Basophils % 0.9 %; Eosinophils # 0.4 10^3/uL (0.0-0.8); Eosinophils % 3.6 %; Hematocrit 39.6 % (42.0-52.0); Hemoglobin 12.3 g/dL (11.7-16.6); Lymphocytes # 1.1 10^3/uL (0.8-4.8); Lymphocytes % 10.5 %; Mean Corpuscular HGB Conc 31.1 g/dL (30.0-36.0); Mean Corpuscular Hemoglobin 25.5 pg (28.0-34.0); Mean Platelet Volume 9.2 fL (7.4-10.4); Monocytes # 1.3 10^3/uL (0.2-0.9); Monocytes % 12.6 %; Neutrophils % 71.5 %; Nucleated Red Blood Cells % 0 %; Platelet Count 405 10^3/cmm (130-400); Red Blood Count 4.83 10^6/uL (4.1-5.3); Red Cell Distribution Width 19.5 % (12.1-15.1); White Blood Count 10.2 10^3/uL (4.0-10.0)
[2022-07-12 05:14] LABS: Anion Gap 17.2 (5-19); Blood Urea Nitrogen 24 mg/dL (8-23); Calcium 8.9 mg/dL (8.5-10.5); Carbon Dioxide 29 mmol/L (22-29); Chloride 93 mmol/L (98-107); Glomerular Filtration Rate 50.4 mL/min (90-130); Glucose 111 mg/dL (65-115); NT Pro B Type Natriuretic Pept 26958 pg/mL (0-125); Osmolality Calculated 287 mOsm/kg (285-295); Potassium 3.2 mmol/L (3.5-5.1); Sodium 136 mmol/L (136-145)
[2022-07-12] MEDS: nicotine 2 mg Gum BUCCAL ×5 (05:51→20:30)
[2022-07-12] MEDS: clopidogrel 75 mg Tablet PO (05:51)
[2022-07-12] MEDS: nystatin powder 15 gm Btl 1 APPLIC TOPICAL ×2 (08:25→17:45)
[2022-07-12] MEDS: FUROsemide 10 mg/mL SDV 4mL 40 MG IVP (08:25)
[2022-07-12] MEDS: ciprofloxacin 500 mg Tablet 250 MG PO ×2 (08:25→20:30)
[2022-07-12] MEDS: doxycycline 100 mg Tablet PO ×2 (08:28→17:44)
[2022-07-12] MEDS: potassium chloride ER 20 mEq Tablet 60 MEQ PO (08:28)
[2022-07-12] MEDS: carvedilol 6.25 mg Tablet 12.5 MG PO ×2 (08:28→20:30)
[2022-07-12] MEDS: aspirin 81 mg EC Tablet PO (08:28)
[2022-07-12] MEDS: pantoprazole DR 40 mg Tablet PO (08:28)
--- NOTE | 2022-07-12 10:17 | PC.SOCIAL ---
Imm update Imm updated with patient at bedside. Copy of page 2 provided. Patient verbalized understanding. Copy in chart initialed, dated and timed.
[2022-07-12] MEDS: heparin 5,000 unit/mL INJ 1 mL 5000 UNIT SUBCUT ×2 (12:06→23:29)
--- NOTE | 2022-07-12 13:33 | PM.PN ---
Subjective Subjective: patient was seen this morning, he is hesitant about going to a intermediate, Vitals/I&O/Wt Last Vital Signs Temp 97.9 F 07/12/22 11:50 Pulse 58 L 07/12/22 11:50 Resp 18 07/12/22 11:50 BP 122/81 07/12/22 11:50 Pulse Ox 92 07/12/22 11:50 O2 Del Method 07/12/22 11:50 O2 Flow Rate 2 07/12/22 04:00 07/11/22 07/12/22 07/12/22 22:59 06:59 14:59 Intake Total 170 / 1311 240 / 240 Output Total 700 / 700 2750 / 3450 1300 / 1300 Balance -530 / 611 -2750 / -2139 -1060 / -1060 Physical Exam Const: COMMON NORMALS: no acute distress and patient oriented x3 Resp: COMMON NORMALS: normal respiratory effort, No retractions, No use of accessory muscles and clear to auscultation bilaterally AUSCULTATION: clear to auscultation bilaterally Cardio: COMMON NORMALS: regular rate, regular rhythm, S1 normal heart sound present and S2 normal heart sound present RATE: regular rate RHYTHM: regular rhythm HEART SOUNDS: S1 normal heart sound present and S2 normal heart sound present GI: COMMON NORMALS: Normal to inspection, nondistended, normoactive bowel sounds present Extremity: NARRATIVE EXTREMITY EXAM: 1+ edema Neuro: COMMON NORMALS: patient oriented x3 Psych: COMMON NORMALS: mental status grossly normal Urinary Catheter Management: Barros: Cath Placed During This Visit: yes Reason for Continuing Indwelling Catheter: Acute Urinary Retention or Obstruction Urinary Catheter Date of Insertion: 07/07/22 Urinary Catheter Time of Insertion: 18:10 Data 07/12/22 04:21 07/12/22 04:21 Micro: Microbiology 07/12/22 07:00 Stool Lactoferrin - Final Stool Enteric Pathogens (PCR) - Final Parasite Antigen Panel - Final C.difficile Toxin B Gene (PCR) - Final Occult Blood (FIT) - Final 07/08/22 00:51 Gram Stain - Final Leg - #1 Wound Culture - Preliminary Gram Negative Rods Gram Negative Rods#2 A&P Assessment and plan (1) Pressure injury of deep tissue of sacral region: (2) Deep tissue injury: (3) Complicated urinary tract infection: (4) Dehydration: (5) Diarrhea: (6) Hypoxia: (7) History of colon polyps: (8) CHF (congestive heart failure): (9) HTN (hypertension): (10) Coronary artery disease: (11) Chronic kidney disease: (12) Hyperlipidemia: (13) Multiple sclerosis: (14) Skin ulcer: (15) Cellulitis: (16) Hyponatremia: (17) SUSHILA (acute kidney injury): (18) NSTEMI (non-ST elevated myocardial infarction): Plan #Cellulitis, intertrigo pannus, pelvis, scrotum #UTI #Chronic congestive heart failure, diastolic #Generalized anasarca, scrotal edema #Coronary artery disease status post stent November 2021 #Multiple sclerosis #Neurogenic bladder, self caths at home #CKD #Hyperlipidemia #Hypertension #Hyponatremia #Hypoalbuminemia #Leukocytosis most likely secondary to cellulitis #SUSHILA #sacral DTI and Lower extremity DTI -Urine culture showing Enterobacter, fairly resistant to penicillins, switch to ciprofloxacin ? De-escalate to doxycycline ? Interdry sheets between skin folds to be applied ? Nystatin powder for skin folds ? Scrotal ultrasound done last week patient no acute pathology identified. Edema most likely secondary to generalized anasarca and CHF. Lungs are clear to auscultation. Patient on room air laying flat. ? Continue hydralazine 25 3 times daily, losartan daily, aspirin, atorvastatin ? Continue Coreg ? Place Barros catheter for accurate output and neurogenic bladder. Self caths at home. ? Vitals every 4 hours ? PT OT. Patient interested in SNF. States he is bedbound and uses an electric scooter and also has a wheelchair. His girlfriend helps him get around if needed however he states he does not move much. ? Will need wound care. ? hyponatremia resolved -Has lower extremity edema 1 dose of Lasix -nstemi, coutinue statin, plavix, coreg, telemetry monitoring, cardiac echo shows EF of 40%, with moderate diffuse hypokinesia of the inferior lateral wall segment, patient does not want any interventions at this time, understands risks, understands morbidity and mortality, I will have him follow-up with cardiology as outpatient -multiple DTI, hydrofera blue, offloading,surgery recommends medical mangnement Full code Heparin SQ twice daily, SCDs Attestations Medical Necessity Statement*: patient requires hospitalization for cellulitis and dti, fluid overload Coding Level of Care Code Acute Code for Chg Fwd Diagnoses Pressure injury of deep tissue of sacral region L89.156 Deep tissue injury T14.8XXA Complicated urinary tract infection N39.0 Dehydration E86.0 Diarrhea R19.7 Hypoxia R09.02 History of colon polyps Z86.010 CHF (congestive heart failure) I50.9 HTN (hypertension) I10 Coronary artery disease I25.10 Chronic kidney disease N18.9 Hyperlipidemia E78.5 Multiple sclerosis G35 Skin ulcer L98.499 Cellulitis L03.90 Hyponatremia E87.1 SUSHILA (acute kidney injury) N17.9 NSTEMI (non-ST elevated myocardial infarction) I21.4
[2022-07-12] MEDS: atorvastatin 40 mg Tablet PO (17:45)
[2022-07-12] MEDS: acetaminophen 325 mg Tablet 650 MG PO (19:32)
[2022-07-12] MEDS: ropinirole 0.25 mg Tablet 0.5 MG PO (20:30)
[2022-07-12] MEDS: morphine 4 mg/mL SDV 1 mL 2 MG IVP (21:48)
[2022-07-13] VITALS (9 sets, daily range): BP systolic 121–167; BP diastolic 69–92; PULSE 60–117; RESP 15–18; TEMP 36.6–37; O2SAT 90–95
[2022-07-13] MEDS: clopidogrel 75 mg Tablet PO (04:59)
[2022-07-13 06:16] LABS: Basophils # 0.1 10^3/uL (0.0-0.1); Basophils % 0.9 %; Eosinophils # 0.4 10^3/uL (0.0-0.8); Eosinophils % 3.9 %; Hematocrit 41.1 % (42.0-52.0); Hemoglobin 12.6 g/dL (11.7-16.6); Lymphocytes # 1.1 10^3/uL (0.8-4.8); Lymphocytes % 10.4 %; Mean Corpuscular HGB Conc 30.7 g/dL (30.0-36.0); Mean Corpuscular Hemoglobin 25.6 pg (28.0-34.0); Mean Corpuscular Volume 83.5 fl (80-94); Mean Platelet Volume 9.7 fL (7.4-10.4); Monocytes # 1.4 10^3/uL (0.2-0.9); Monocytes % 12.5 %; Neutrophils # 7.66 10^3/uL (1.8-7.7); Nucleated Red Blood Cells % 0 %; Platelet Count 413 10^3/cmm (130-400); Red Blood Count 4.92 10^6/uL (4.1-5.3); Red Cell Distribution Width 19.9 % (12.1-15.1); White Blood Count 10.8 10^3/uL (4.0-10.0)
[2022-07-13 06:34] LABS: Anion Gap 14.2 (5-19); Blood Urea Nitrogen 24 mg/dL (8-23); Calcium 8.6 mg/dL (8.5-10.5); Carbon Dioxide 31 mmol/L (22-29); Chloride 91 mmol/L (98-107); Glomerular Filtration Rate 54.9 mL/min (90-130); Glucose 144 mg/dL (65-115); Osmolality Calculated 283 mOsm/kg (285-295); Potassium 3.2 mmol/L (3.5-5.1); Sodium 133 mmol/L (136-145)
[2022-07-13] MEDS: carvedilol 6.25 mg Tablet 12.5 MG PO ×2 (08:34→20:30)
[2022-07-13] MEDS: doxycycline 100 mg Tablet PO ×2 (08:34→17:59)
[2022-07-13] MEDS: ciprofloxacin 500 mg Tablet 250 MG PO ×2 (08:35→20:30)
[2022-07-13] MEDS: nystatin powder 15 gm Btl 1 APPLIC TOPICAL ×2 (08:35→17:59)
[2022-07-13] MEDS: pantoprazole DR 40 mg Tablet PO (08:35)
[2022-07-13] MEDS: aspirin 81 mg EC Tablet PO (08:35)
[2022-07-13] MEDS: potassium chloride ER 20 mEq Tablet 40 MEQ PO (09:10)
[2022-07-13 11:08] LABS: Glucose Point of Care 304 mg/dL (70-110)
[2022-07-13] MEDS: heparin 5,000 unit/mL INJ 1 mL 5000 UNIT SUBCUT ×2 (12:08→22:42)
[2022-07-13] MEDS: nicotine 2 mg Gum BUCCAL ×4 (12:08→22:42)
--- NOTE | 2022-07-13 13:56 | P.PN_ITS ---
Subjective Subjective: Patient was seen this morning, he tells me he does not want to go to intermediate, he tells me that he wants to go home, but his girlfriend is difficult to convince to help take care of him, he does tell me that his son is coming down on Friday to help take care of him, he said that he has nobody else, he did not want to give up his home, he feels a lot better with all the fluid that he can offer him, he sees it in his legs Vitals/I&O/Wt Last Vital Signs Temp 98.3 F 07/13/22 11:31 Pulse 60 07/13/22 11:31 Resp 16 07/13/22 11:31 BP 122/69 07/13/22 11:31 Pulse Ox 94 07/13/22 11:31 O2 Del Method 07/13/22 11:31 O2 Flow Rate 2 07/13/22 00:00 07/12/22 07/13/22 07/13/22 22:59 06:59 14:59 Intake Total 720 / 720 Output Total 250 / 1550 Balance -250 / -1310 720 / 720 Physical Exam Const: COMMON NORMALS: no acute distress and patient oriented x3 Resp: COMMON NORMALS: normal respiratory effort, No retractions, No use of accessory muscles and clear to auscultation bilaterally AUSCULTATION: clear to auscultation bilaterally Cardio: COMMON NORMALS: regular rate, regular rhythm, S1 normal heart sound present and S2 normal heart sound present RATE: regular rate RHYTHM: regular rhythm HEART SOUNDS: S1 normal heart sound present and S2 normal heart sound present GI: COMMON NORMALS: Normal to inspection, nondistended, normoactive bowel sounds present and non-tender Extremity: COMMON NORMALS: no pedal edema Neuro: COMMON NORMALS: patient oriented x3 Psych: COMMON NORMALS: mental status grossly normal Urinary Catheter Management: Barros: Cath Placed During This Visit: yes Reason for Continuing Indwelling Catheter: Acute Urinary Retention or Obstruction Urinary Catheter Date of Insertion: 07/07/22 Urinary Catheter Time of Insertion: 18:10 Data 07/13/22 04:56 07/13/22 04:56 Micro: Microbiology 07/08/22 00:51 Gram Stain - Final Leg - #1 Wound Culture - Final Enterobacter cloacae Alcaligenes faecalis 07/07/22 17:51 Blood Culture - Final Blood NO GROWTH AFTER 5 DAYS 07/07/22 17:42 Blood Culture - Final Blood NO GROWTH AFTER 5 DAYS 07/12/22 07:00 Stool Lactoferrin - Final Stool Enteric Pathogens (PCR) - Final Parasite Antigen Panel - Final C.difficile Toxin B Gene (PCR) - Final Occult Blood (FIT) - Final A&P Assessment and plan (1) Pressure injury of deep tissue of sacral region: (2) Deep tissue injury: (3) Complicated urinary tract infection: (4) Dehydration: (5) Diarrhea: (6) Hypoxia: (7) History of colon polyps: (8) CHF (congestive heart failure): (9) HTN (hypertension): (10) Coronary artery disease: (11) Chronic kidney disease: (12) Hyperlipidemia: (13) Multiple sclerosis: (14) Skin ulcer: (15) Cellulitis: (16) Hyponatremia: (17) SUSHILA (acute kidney injury): (18) NSTEMI (non-ST elevated myocardial infarction): Plan #Cellulitis, intertrigo pannus, pelvis, scrotum #UTI #Chronic congestive heart failure, diastolic #Generalized anasarca, scrotal edema #Coronary artery disease status post stent November 2021 #Multiple sclerosis #Neurogenic bladder, self caths at home #CKD #Hyperlipidemia #Hypertension #Hyponatremia #Hypoalbuminemia #Leukocytosis most likely secondary to cellulitis #SUSHILA #sacral DTI and Lower extremity DTI -Urine culture showing Enterobacter, fairly resistant to penicillins, switch to ciprofloxacin ? Continue doxycycline, ciprofloxacin ? Interdry sheets between skin folds to be applied ? Nystatin powder for skin folds ? Scrotal ultrasound done last week patient no acute pathology identified. Edema most likely secondary to generalized anasarca and CHF. Lungs are clear to auscultation. Patient on room air laying flat. ? Continue hydralazine 25 3 times daily, losartan daily, aspirin, atorvastatin ? Continue Coreg ? Place Barros catheter for accurate output and neurogenic bladder. Self caths at home. ? Vitals every 4 hours ? PT OT. Patient interested in SNF. States he is bedbound and uses an electric scooter and also has a wheelchair. His girlfriend helps him get around if needed however he states he does not move much. ? Will need wound care. ? hyponatremia resolved -Has lower extremity edema, diuresed over 8.5 L, 1 more dose of Lasix today -nstemi, coutinue statin, plavix, coreg, telemetry monitoring, cardiac echo shows EF of 40%, with moderate diffuse hypokinesia of the inferior lateral wall segment, patient does not want any interventions at this time, understands risks, understands morbidity and mortality, I will have him follow-up with cardiology as outpatient -multiple DTI, hydrofera blue, offloading,surgery recommends medical mangnement Full code Heparin SQ twice daily, SCDs Attestations Medical Necessity Statement*: Patient requires hospitalization for cellulitis, UTI, lower extremity edema Coding Level of Care Code Acute Code for Chg Fwd Diagnoses Pressure injury of deep tissue of sacral region L89.156 Deep tissue injury T14.8XXA Complicated urinary tract infection N39.0 Dehydration E86.0 Diarrhea R19.7 Hypoxia R09.02 History of colon polyps Z86.010 CHF (congestive heart failure) I50.9 HTN (hypertension) I10 Coronary artery disease I25.10 Chronic kidney disease N18.9 Hyperlipidemia E78.5 Multiple sclerosis G35 Skin ulcer L98.499 Cellulitis L03.90 Hyponatremia E87.1 SUSHILA (acute kidney injury) N17.9 NSTEMI (non-ST elevated myocardial infarction) I21.4
[2022-07-13] MEDS: FUROsemide 10 mg/mL SDV 4mL 40 MG IVP (15:32)
[2022-07-13] MEDS: atorvastatin 40 mg Tablet PO (17:59)
[2022-07-13] MEDS: ropinirole 0.25 mg Tablet 0.5 MG PO (20:30)
[2022-07-14 03:38] VITALS: BP 146/80; PULSE 63; RESP 15; TEMP 36.6; O2SAT 95
[2022-07-14 04:03] LABS: Basophils # 0.1 10^3/uL (0.0-0.1); Basophils % 1.1 %; Eosinophils # 0.5 10^3/uL (0.0-0.8); Eosinophils % 4.2 %; Hematocrit 40.7 % (42.0-52.0); Hemoglobin 12.6 g/dL (11.7-16.6); Lymphocytes # 1.4 10^3/uL (0.8-4.8); Lymphocytes % 11.8 %; Mean Corpuscular Hemoglobin 25.6 pg (28.0-34.0); Mean Corpuscular Volume 82.7 fl (80-94); Mean Platelet Volume 9.7 fL (7.4-10.4); Monocytes # 1.2 10^3/uL (0.2-0.9); Monocytes % 9.8 %; Neutrophils # 8.61 10^3/uL (1.8-7.7); Neutrophils % 71.4 %; Nucleated Red Blood Cells % 0 %; Platelet Count 454 10^3/cmm (130-400); Red Blood Count 4.92 10^6/uL (4.1-5.3); Red Cell Distribution Width 19.8 % (12.1-15.1)
[2022-07-14 04:24] LABS: Anion Gap 14.6 (5-19); Blood Urea Nitrogen 20 mg/dL (8-23); Calcium 8.5 mg/dL (8.5-10.5); Carbon Dioxide 28 mmol/L (22-29); Chloride 93 mmol/L (98-107); Glomerular Filtration Rate 60.2 mL/min (90-130); Glucose 137 mg/dL (65-115); Osmolality Calculated 279 mOsm/kg (285-295); Potassium 3.6 mmol/L (3.5-5.1); Sodium 132 mmol/L (136-145)
[2022-07-14] MEDS: clopidogrel 75 mg Tablet PO (06:10)
[2022-07-14] MEDS: nicotine 2 mg Gum BUCCAL ×7 (06:11→22:31)
[2022-07-14 08:00] VITALS: BP 159/89; PULSE 70; PULSE 78; RESP 19; TEMP 36.4; O2SAT 93; O2SAT 96
[2022-07-14] MEDS: ciprofloxacin 500 mg Tablet 250 MG PO ×2 (09:02→20:08)
[2022-07-14] MEDS: doxycycline 100 mg Tablet PO ×2 (09:02→17:19)
[2022-07-14] MEDS: pantoprazole DR 40 mg Tablet PO (09:02)
[2022-07-14] MEDS: carvedilol 6.25 mg Tablet 12.5 MG PO ×2 (09:02→20:07)
[2022-07-14] MEDS: aspirin 81 mg EC Tablet PO (09:02)
[2022-07-14] MEDS: nystatin powder 15 gm Btl 1 APPLIC TOPICAL ×2 (09:04→17:19)
[2022-07-14] MEDS: FUROsemide 10 mg/mL SDV 4mL 40 MG IVP (09:49)
[2022-07-14] MEDS: spironolactone 25 mg Tablet PO (09:49)
[2022-07-14] MEDS: potassium chloride ER 20 mEq Tablet 40 MEQ PO (09:49)
[2022-07-14] MEDS: heparin 5,000 unit/mL INJ 1 mL 5000 UNIT SUBCUT ×2 (11:04→22:31)
[2022-07-14 12:00] VITALS: BP 135/75; PULSE 65; RESP 16; TEMP 36.3; O2SAT 92
--- NOTE | 2022-07-14 13:40 | PC.SOCIAL ---
IMM UPDATED IMM dated and initialed and copy given to patient and placed in chart.
[2022-07-14] MEDS: acetaminophen 325 mg Tablet 650 MG PO (15:41)
[2022-07-14 16:00] VITALS: BP 131/67; PULSE 72; RESP 18; TEMP 36.7; O2SAT 92
[2022-07-14] MEDS: atorvastatin 40 mg Tablet PO (17:19)
--- NOTE | 2022-07-14 17:39 | P.PN_ITS ---
Subjective Subjective: Patient was seen this morning, he tells me he feels like a new man with all the fluid have taken off of him he tells me that he is not ready to go home today, he wants to go home tomorrow and his girlfriend can take him home, he tells me that his son is coming down to his home to help out with him, to build him a ramp he wants a hospital bed, bedside commode Vitals/I&O/Wt Last Vital Signs Temp 97.4 F L 07/14/22 12:00 Pulse 65 07/14/22 12:00 Resp 16 07/14/22 12:00 BP 135/75 07/14/22 12:00 Pulse Ox 92 07/14/22 12:00 O2 Del Method 07/14/22 12:00 O2 Flow Rate 1.5 07/13/22 23:40 07/14/22 07/14/22 07/14/22 06:59 14:59 22:59 Intake Total 600 / 600 Output Total 300 / 2049 Balance -300 / -1090 -1400 / -1400 Physical Exam Const: COMMON NORMALS: no acute distress and patient oriented x3 Resp: COMMON NORMALS: normal respiratory effort, No retractions, No use of acc essory muscles and clear to auscultation bilaterally AUSCULTATION: clear to auscultation bilaterally Cardio: COMMON NORMALS: regular rate, regular rhythm, S1 normal heart sound present and S2 normal heart sound present RATE: regular rate RHYTHM: regular rhythm HEART SOUNDS: S1 normal heart sound present and S2 normal heart sound present GI: COMMON NORMALS: Normal to inspection, nondistended, normoactive bowel sounds present and non-tender Extremity: COMMON NORMALS: no clubbing, cyanosis or edema and no pedal edema Neuro: COMMON NORMALS: patient oriented x3 Psych: COMMON NORMALS: mental status grossly normal Skin: NARRATIVE SKIN EXAM: Multiple deep tissue injury, bilateral lower extremities, sacrum Urinary Catheter Management: Barros: Cath Placed During This Visit: yes Reason for Continuing Indwelling Catheter: Acute Urinary Retention or Obstruction Urinary Catheter Date of Insertion: 07/07/22 Urinary Catheter Time of Insertion: 18:10 Data 07/14/22 02:46 07/14/22 02:46 A&P Assessment and plan (1) Pressure injury of deep tissue of sacral region: (2) Deep tissue injury: (3) Complicated urinary tract infection: (4) Dehydration: (5) Diarrhea: (6) Hypoxia: (7) History of colon polyps: (8) CHF (congestive heart failure): (9) HTN (hypertension): (10) Coronary artery disease: (11) Chronic kidney disease: (12) Hyperlipidemia: (13) Multiple sclerosis: (14) Skin ulcer: (15) Cellulitis: (16) Hyponatremia: (17) SUSHILA (acute kidney injury): (18) NSTEMI (non-ST elevated myocardial infarction): (19) Diastolic CHF: (20) CHF exacerbation: Plan #Cellulitis, intertrigo pannus, pelvis, scrotum #UTI #Chronic congestive heart failure, diastolic #Generalized anasarca, scrotal edema #Coronary artery disease status post stent November 2021 #Multiple sclerosis #Neurogenic bladder, self caths at home #CKD #Hyperlipidemia #Hypertension #Hyponatremia #Hypoalbuminemia #Leukocytosis most likely secondary to cellulitis #SUSHILA #sacral DTI and Lower extremity DTI -Urine culture showing Enterobacter, fairly resistant to penicillins, switch to ciprofloxacin ? Continue doxycycline, ciprofloxacin ? Interdry sheets between skin folds to be applied ? Nystatin powder for skin folds ? Scrotal ultrasound done last week patient no acute pathology identified. Edema most likely secondary to generalized anasarca and CHF. Lungs are clear to auscultation. Patient on room air laying flat. ? Continue hydralazine 25 3 times daily, losartan daily, aspirin, atorvastatin ? Continue Coreg ? Place Barros catheter for accurate output and neurogenic bladder. Self caths at home. ? Vitals every 4 hours ? PT OT. Patient interested in SNF. States he is bedbound and uses an electric scooter and also has a wheelchair. His girlfriend helps him get around if needed however he states he does not move much. ? Will need wound care. ? hyponatremia resolved -Has lower extremity edema, diuresed over 10 L, 1 more dose of Lasix today -nstemi, coutinue statin, plavix, coreg, telemetry monitoring, cardiac echo shows EF of 40%, with moderate diffuse hypokinesia of the inferior lateral wall segment, patient does not want any interventions at this time, understands risks, understands morbidity and mortality, I will have him follow-up with cardiology as outpatient -multiple DTI, hydrofera blue, offloading,surgery recommends medical mangnement Full code Heparin SQ twice daily, SCDs Attestations Medical Necessity Statement*: Patient requires hospitalization for fluid overload, requiring diuresis Diagnoses Pressure injury of deep tissue of sacral region L89.156 Deep tissue injury T14.8XXA Complicated urinary tract infection N39.0 Dehydration E86.0 Diarrhea R19.7 Hypoxia R09.02 History of colon polyps Z86.010 CHF (congestive heart failure) I50.9 HTN (hypertension) I10 Coronary artery disease I25.10 Chronic kidney disease N18.9 Hyperlipidemia E78.5 Multiple sclerosis G35 Skin ulcer L98.499 Cellulitis L03.90 Hyponatremia E87.1 SUSHILA (acute kidney injury) N17.9 NSTEMI (non-ST elevated myocardial infarction) I21.4 Diastolic CHF I50.30 CHF exacerbation I50.9
[2022-07-14 20:00] VITALS: BP 136/73; PULSE 69; RESP 16; TEMP 36.6; O2SAT 93
[2022-07-14] MEDS: ropinirole 0.25 mg Tablet 0.5 MG PO (20:09)
[2022-07-15] VITALS: BP 135/75; PULSE 71; RESP 18; TEMP 36.7; O2SAT 92
[2022-07-15 04:00] VITALS: BP 155/84; PULSE 72; RESP 18; TEMP 36.6; O2SAT 95
[2022-07-15 04:55] LABS: Basophils # 0.1 10^3/uL (0.0-0.1); Eosinophils # 0.5 10^3/uL (0.0-0.8); Eosinophils % 3.2 %; Hematocrit 42.4 % (42.0-52.0); Hemoglobin 13.2 g/dL (11.7-16.6); Lymphocytes # 1.3 10^3/uL (0.8-4.8); Lymphocytes % 9.3 %; Mean Corpuscular HGB Conc 31.1 g/dL (30.0-36.0); Mean Corpuscular Hemoglobin 25.8 pg (28.0-34.0); Mean Corpuscular Volume 82.8 fl (80-94); Mean Platelet Volume 9.4 fL (7.4-10.4); Monocytes # 1.4 10^3/uL (0.2-0.9); Monocytes % 9.6 %; Neutrophils # 10.66 10^3/uL (1.8-7.7); Neutrophils % 75.5 %; Nucleated Red Blood Cells % 0 %; Platelet Count 496 10^3/cmm (130-400); Red Blood Count 5.12 10^6/uL (4.1-5.3); Red Cell Distribution Width 20.3 % (12.1-15.1); White Blood Count 14.1 10^3/uL (4.0-10.0)
[2022-07-15 05:16] LABS: Alanine Aminotransferase 24 U/L (0-41); Albumin Level 2.5 g/dL (3.5-5.2); Alkaline Phosphatase 185 U/L (40-130); Anion Gap 16.9 (5-19); Aspartate Amino Transferase 22 U/L (0-40); Blood Urea Nitrogen 19 mg/dL (8-23); Calcium 8.7 mg/dL (8.5-10.5); Carbon Dioxide 28 mmol/L (22-29); Chloride 93 mmol/L (98-107); Globulin 4.6 g/dL (1.3-4.6); Glomerular Filtration Rate 60.2 mL/min (90-130); Glucose 121 mg/dL (65-115); Magnesium 1.7 mg/dL (1.7-2.3); NT Pro B Type Natriuretic Pept 10861 pg/mL (0-125); Osmolality Calculated 282 mOsm/kg (285-295); Phosphorus 3.2 mg/dL (2.5-4.5); Potassium 3.9 mmol/L (3.5-5.1); Sodium 134 mmol/L (136-145); Total Bilirubin 0.4 mg/dL (0.15-1.2); Total Protein 7.1 g/dL (6.6-8.7)
[2022-07-15] MEDS: clopidogrel 75 mg Tablet PO (05:55)
[2022-07-15] MEDS: nicotine 2 mg Gum BUCCAL ×2 (05:55→08:40)
[2022-07-15 08:00] VITALS: BP 149/81; PULSE 65; RESP 18; TEMP 36.5; O2SAT 92
[2022-07-15] MEDS: doxycycline 100 mg Tablet PO (08:35)
[2022-07-15] MEDS: carvedilol 6.25 mg Tablet 12.5 MG PO (08:39)
[2022-07-15] MEDS: spironolactone 25 mg Tablet PO (08:40)
[2022-07-15] MEDS: aspirin 81 mg EC Tablet PO (08:40)
[2022-07-15] MEDS: potassium chloride ER 20 mEq Tablet PO (08:40)
[2022-07-15] MEDS: pantoprazole DR 40 mg Tablet PO (08:40)
[2022-07-15] MEDS: ciprofloxacin 500 mg Tablet 250 MG PO (08:40)
[2022-07-15] MEDS: FUROsemide 40 mg Tablet PO (08:40)
[2022-07-15] MEDS: nystatin powder 15 gm Btl 1 APPLIC TOPICAL (08:40)
--- NOTE | 2022-07-15 08:52 | PM.DCS ---
Discharge Providers Date of Admission: 07/07/22 21:35 Date of Discharge: July 15, 2022 Attending Provider at Admission: Jane Sargent MD Attending Provider at Discharge: Kulwant Guerin MD Primary Care Provider: Kylie Vogel Diagnoses at Discharge Discharge Diagnosis (1) Pressure injury of deep tissue of sacral region: Status: Acute (2) Deep tissue injury: Status: Acute (3) Complicated urinary tract infection: Status: Acute (4) Dehydration: Status: Acute (5) Diarrhea: Status: Acute (6) Hypoxia: Status: Acute (7) History of colon polyps: Status: Acute (8) CHF (congestive heart failure): Status: Acute (9) HTN (hypertension): Status: Acute (10) Coronary artery disease: Status: Acute (11) Chronic kidney disease: Status: Acute (12) Hyperlipidemia: Status: Acute (13) Multiple sclerosis: Status: Acute (14) Skin ulcer: Status: Acute (15) Cellulitis: Status: Acute (16) Hyponatremia: Status: Acute (17) SUSHILA (acute kidney injury): Status: Acute (18) NSTEMI (non-ST elevated myocardial infarction): Status: Acute (19) Diastolic CHF: Status: Acute (20) CHF exacerbation: Status: Acute Reason for Visit Reason for Visit: DIARRHEA Hospital Course Hospital Course Armando Coleman is a 67 year old male with history of chronic congestive heart failure, coronary disease status post stent November 2021, multiple sclerosis, neurogenic bladder, NSTEMI, CKD, hyperlipidemia, urinary retention, self caths at home?for the hospital today with complaint of generalized illness.? He is unable to find chronic or exactly how long however states his scrotum is swollen and weeping wound on his calf.? At previous visit to the ER on 06/25/2022 he had a scrotal ultrasound on which showed scrotal wall edema, small bilateral hydroceles no acute testicular findings.? Chest x-ray at that visit did show some pulmonary vascular congestion he was given Lasix and then discharged home.? Patient claims that he was called from the hospital to come back because there was an abnormal lab result.? Upon reviewing records it seems urine culture was positive for E. coli that was pansensitive.? Patient states that he has been taking the medication that was prescribed a week prior which has given him diarrhea.? He has been having diarrhea for 1 week.? He is incontinent of stool and had soiled himself.? He says his girlfriend helps him at home.? He presents a very conflicting history is a very very poor historian.? It was very challenging to put all the events together in chronological order.? Ultimately he states he does not know why he is at the hospital and we should be the ones doing investigation to find out what is wrong with him.? He does state that he is interested in rehab if he would qualify for some. ED course: Blood pressure 128/88, pulse 90, respiratory 20, temperature 99, saturating 98% on room air.? Patient given a gram of Rocephin and placed on IV fluids 150 cc/h.? ET abdomen pelvis showed mild 1.5 cm rounded nodular appearance of superior left adrenal gland unchanged from prior exam.? Vascular calcification including moderate of small vessel calcification in both kidneys with possible tiny nonobstructing right renal calculus, small hypodense renal cortical foci are unchanged from prior exam likely small cysts.? Mild colonic diverticulosis and moderate stool content in colon, left inguinal hernia with fat unchanged from prior exam, soft tissue subcutaneous edema anasarca.? Intramuscular lipoma left gluteus minimus, Barros catheter in urinary bladder, no acute findings otherwise. Patient was [facility] for cellulitis, pannus, pelvis, scrotum, received broad-spectrum antibiotic therapy, overall clinically improved. UTI, received antibiotic therapies, overall improved Patient had diastolic CHF exacerbation, requiring diuresis, patient is -12 L. Discharged with Lasix, potassium placement, Aldactone, with follow-up with primary care provider as outpatient. Patient has sacral DTI's, lower extremity DTI's, medically managed, general surgery was consulted for consideration of debridement however they recommended medical management. Kept on antibiotic therapy, frequent repositioning, frequent dressing changes. Patient was advised to continue offloading deep tissue injuries, wet-to-dry dressings, continue antibiotics follow-up with wound care During hospitalization, patient was found to have an EF of 40%, with a moderate hypokinesia of the inferior lateral wall segment, patient did not want to have any interventions, declined angiogram, declined stress testing. Understands morbidity and mortality associate with acute cardiac event, all questions answered, voiced understanding, declined for now. I would have him follow-up with cardiology as outpatient, continue aspirin, Plavix, statin, beta-mariel as outpatient. If you were to have any recurrent chest pain to go to emergency room Physical Exam Const: COMMON NORMALS: no acute distress and patient oriented x3 Resp: COMMON NORMALS: normal respiratory effort, No retractions, No use of accessory muscles and clear to auscultation bilaterally AUSCULTATION: clear to auscultation bilaterally Cardio: COMMON NORMALS: regular rate, regular rhythm, S1 normal heart sound present and S2 normal heart sound present RATE: regular rate RHYTHM: regular rhythm HEART SOUNDS: S1 normal heart sound present and S2 normal heart sound present GI: COMMON NORMALS: Normal to inspection, nondistended, normoactive bowel sounds present and non-tender Extremity: COMMON NORMALS: no pedal edema Neuro: COMMON NORMALS: patient oriented x3 Psych: COMMON NORMALS: mental status grossly normal Urinary Catheter Management: Barros: Cath Placed During This Visit: yes Reason for Continuing Indwelling Catheter: Accurate Measurement of Urinary Output in Critically Ill Patients Urinary Catheter Date of Insertion: 07/07/22 Urinary Catheter Time of Insertion: 18:10 Discharge Data Studies Completed and Pending Completed Studies During Hospitalization Category Date Time Status CT abdomen pelvis w con* [id number] Stat Cat Scan 07/07/22 17:27 Completed XR chest 1V portable [id number] Routine Exams 07/10/22 07:00 Completed CV. echo complete* [id number] Routine Ultrasound 07/09/22 07:39 Completed Pending at discharge Category Date Time Status Complete Blood Count w/Auto AM LABS Lab 07/16/22 04:00 Ordered Complete Blood Count w/Auto AM LABS Lab 07/17/22 04:00 Ordered Comprehensive Metabolic Panel AM LABS Lab 07/16/22 04:00 Ordered Comprehensive Metabolic Panel AM LABS Lab 07/17/22 04:00 Ordered Magnesium AM LABS Lab 07/16/22 04:00 Ordered Magnesium AM LABS Lab 07/17/22 04:00 Ordered NT Pro B Type Natriuretic Pept QAM Lab 07/16/22 06:00 Ordered NT Pro B Type Natriuretic Pept QAM Lab 07/17/22 06:00 Ordered Phosphorus AM LABS Lab 07/16/22 04:00 Ordered Phosphorus AM LABS Lab 07/17/22 04:00 Ordered Radiology Impressions Abdomen/Pelvis CT 07/07/22 17:27 IMPRESSION: 1. Mild 1.5 cm rounded nodular appearance of the superior left adrenal gland, unchanged from prior exam. 2. Vascular calcification including a component of small-vessel calcification in both kidneys, with possible tiny nonobstructing right renal calculus. 3. Small hypodense renal cortical foci are unchanged with prior exam, likely small cysts. 4. Mild colonic diverticulosis and moderate stool content in the colon. 5. Left inguinal hernia of fat, unchanged from prior exam. 6. Soft tissue subcutaneous edema or anasarca. Intramuscular lipoma left gluteus minimus. 7. Barros catheter in the urinary bladder. 8. No acute findings, otherwise. COMMENTS: Consistent with the [employer]'s Incidental Findings Committee white paper (J Am Vipul Radiol 2018): Any incidental renal lesion less than 1 cm or classified as too small to characterize, or any incidental cystic renal lesion characterized as simple-appearing, is likely benign. No follow-up imaging is recommended for these lesions per consensus recommendations based on imaging criteria. Chest X-Ray 07/10/22 07:00 IMPRESSION: Stable abnormal chest. Patient has chronic interstitial changes and it is difficult to exclude the superimposition of acute congestive heart failure. Laboratory Results WBC 14.1 10^3/uL (4.0-10.0) H 07/15/22 03:47 RBC 5.12 10^6/uL (4.1-5.3) 07/15/22 03:47 Hgb 13.2 g/dL (11.7-16.6) 07/15/22 03:47 Hct 42.4 % (42.0-52.0) 07/15/22 03:47 MCV 82.8 fl (80-94) 07/15/22 03:47 MCH 25.8 pg (28.0-34.0) L 07/15/22 03:47 MCHC 31.1 g/dL (30.0-36.0) 07/15/22 03:47 RDW 20.3 % (12.1-15.1) H 07/15/22 03:47 Plt Count 496 10^3/cmm (130-400) H 07/15/22 03:47 MPV 9.4 fL (7.4-10.4) 07/15/22 03:47 Neut % (Auto) 75.5 % 07/15/22 03:47 Lymph % (Auto) 9.3 % 07/15/22 03:47 [place] % (Auto) 9.6 % 07/15/22 03:47 Eos % (Auto) 3.2 % 07/15/22 03:47 Baso % (Auto) 1.0 % 07/15/22 03:47 Neut # (Auto) 10.66 10^3/uL (1.8-7.7) H 07/15/22 03:47 Lymph # (Auto) 1.3 10^3/uL (0.8-4.8) 07/15/22 03:47 [place] # (Auto) 1.4 10^3/uL (0.2-0.9) H 07/15/22 03:47 Eos # (Auto) 0.5 10^3/uL (0.0-0.8) 07/15/22 03:47 Baso # (Auto) 0.1 10^3/uL (0.0-0.1) 07/15/22 03:47 Nucleated RBC % (auto) 0 % 07/15/22 03:47 Nucleated RBCs # 0.0 /100WBC 07/15/22 03:47 Sodium 134 mmol/L (136-145) L 07/15/22 03:47 Potassium 3.9 mmol/L (3.5-5.1) 07/15/22 03:47 Chloride 93 mmol/L (98-107) L 07/15/22 03:47 Carbon Dioxide 28 mmol/L (22-29) 07/15/22 03:47 Anion Gap 16.9 (5-19) 07/15/22 03:47 BUN 19 mg/dL (8-23) 07/15/22 03:47 Creatinine 1.2 mg/dL (0.7-1.2) 07/15/22 03:47 GFR Calculation 60.2 mL/min (90-130) L 07/15/22 03:47 Glucose 121 mg/dL (65-115) H 07/15/22 03:47 POC Glucose 304 mg/dL (70-110) H 07/13/22 10:51 Serum Osmolality 282 mOsm/kg (278-305) 07/07/22 23:46 Calculated Osmolality 282 mOsm/kg (285-295) L 07/15/22 03:47 Lactic Acid 1.5 mmol/L (0.5-2.2) 07/07/22 23:46 Calcium 8.7 mg/dL (8.5-10.5) 07/15/22 03:47 Phosphorus 3.2 mg/dL (2.5-4.5) 07/15/22 03:47 Magnesium 1.7 mg/dL (1.7-2.3) 07/15/22 03:47 Total Bilirubin 0.4 mg/dL (0.15-1.2) 07/15/22 03:47 AST 22 U/L (0-40) 07/15/22 03:47 ALT 24 U/L (0-41) 07/15/22 03:47 Alkaline Phosphatase 185 U/L (40-130) H 07/15/22 03:47 Troponin T Baseline 85 ng/L (0-15) H 07/08/22 08:50 Troponin T 120 Minute 83.47 ng/L (0-15) H 07/08/22 10:55 Delta Troponin T -1.53 ABS# (0-10) L 07/08/22 10:55 Troponin T Hi Sens 6Hr 88.26 ng/L (0-15) H 07/08/22 14:44 Troponin T Hi Sens 6Hr Delta 3.26 ng/L (0-12) 07/08/22 14:44 NT-Pro-B Natriuret Pep 87072 pg/mL (0-125) H 07/15/22 03:47 Total Protein 7.1 g/dL (6.6-8.7) 07/15/22 03:47 Albumin 2.5 g/dL (3.5-5.2) L 07/15/22 03:47 Globulin 4.6 g/dL (1.3-4.6) 07/15/22 03:47 Procalcitonin 0.54 ng/mL (0-0.5) H 07/07/22 23:46 Urine Color Yellow (Yellow) 07/07/22 18:12 Urine Appearance Cloudy (CLEAR) A 07/07/22 18:12 Urine pH 6 (5-7) 07/07/22 18:12 Ur Specific [place] 1.010 (1.005-1.030) 07/07/22 18:12 Urine Protein 2+ (Negative) H 07/07/22 18:12 Urine Glucose (UA) Norm (Normal) 07/07/22 18:12 Urine Ketones Negative (Negative) 07/07/22 18:12 Urine Blood 2+ (Negative) H 07/07/22 18:12 Urine Nitrate Negative (Negative) 07/07/22 18:12 Urine Bilirubin Neg (Negative) 07/07/22 18:12 Urine Urobilinogen Norm mg/dL (Negative) 07/07/22 18:12 Ur Leukocyte Esterase 2+ (Negative) H 07/07/22 18:12 Urine RBC 10-15 /hpf (0-2) H 07/07/22 18:12 Urine WBC 25-40 /hpf (0-5) H 07/07/22 18:12 Ur Squamous Epith Cells Rare /hpf (0-5) 07/07/22 18:12 Amorphous Sediment Not Reportable 07/07/22 18:12 Urine Bacteria 4+ /hpf (NONE) H 07/07/22 18:12 Urine Osmolality 343 mOsm/kg (50-1200) 07/08/22 00:20 Ur Random Sodium 101 mmol/L 07/08/22 00:20 Vancomycin Trough 22.8 ug/mL (10-15) H 07/11/22 22:38 Vitals Last Vital Signs Temp 97.7 F 07/15/22 08:00 Pulse 65 07/15/22 08:00 Resp 18 07/15/22 08:00 BP 149/81 07/15/22 08:00 Pulse Ox 92 07/15/22 08:00 O2 Del Method 07/15/22 08:00 O2 Flow Rate 2 07/15/22 04:00 Discharge Plan Discharge Patient Disposition: Home Condition: Stable Prescriptions: New aspirin 81 mg Tablet,Delayed Release (Dr/Ec) 81 mg PO DAILY 30 Days Qty: 30 0RF ciprofloxacin HCl 500 mg Tablet 250 mg PO BID@0900,2100 3 Days Qty: 6 0RF doxycycline monohydrate 100 mg Tablet 100 mg PO BID 3 Days Qty: 6 0RF spironolactone 25 mg Tablet 25 mg PO DAILY 30 Days Qty: 30 0RF nystatin [Nystop] 100,000 unit/gram Powder 1 applic topical BID 30 Days Qty: 60 0RF Continued nitroglycerin 0.4 mg tablet, sublingual 0.4 mg SUBLINGUAL Q5M PRN (Reason: chest pain) Qty: 30 4RF Rx Instructions: until response; do not exceed 3 doses per episode potassium chloride 20 mEq tablet,ER particles/crystals 20 meq PO DAILY atorvastatin 40 mg tablet 40 mg PO QPM carvedilol 6.25 mg Tablet 12.5 mg PO BID@0900,2100 Qty: 180 0RF clopidogrel 75 mg tablet 75 mg PO QAM Qty: 90 0RF Changed furosemide 40 mg tablet 40 mg PO DAILY 30 Days Qty: 30 0RF hydralazine 25 mg tablet 12.5 mg PO TID Qty: 90 2RF Discontinued metolazone 10 mg tablet 10 mg PO DAILY nitrofurantoin monohyd/m-cryst 100 mg capsule 100 mg PO BID losartan 100 mg tablet 100 mg PO QAM Discharge Orders: Discharge Order (Routine); Ordered 07/15/22 Ordered By: Kulwant Guerin Referrals: Parish Lea M.D [Physician] - 2 weeks Boubacar Irving DPM [Physician] - 2 weeks (toenail trimming) Kylie Vogel [Primary Care Provider] - 4-7 days ( ) [facility], [Staff Physician] - 1 week Discharge Diet: Cardiac Discharge Activity: Resume usual activity Patient Instructions: Opioid Safety Activity Restrictions/Additional Instructions: - Please limit your fluid intake to 1200 mL a day -Take Lasix and potassium as prescribed -Please follow-up with wound care, continue offloading sacral deep tissue injury, deep tissue injury of bilateral legs, repositioning -Follow-up with cardiology -If you have any recurrent chest pain go to the emergency room -See your primary care provider in the next few days Discharge Attestations Time Spent in Discharge Care*: greater than 30 min Quality Metrics Clinical Quality Measures [ No reported AMI, CVA or VTE this stay] Coding Level of Care Code 03983 Total time (in minutes) for Discharge: 40 Diagnoses Pressure injury of deep tissue of sacral region L89.156 Deep tissue injury T14.8XXA Complicated urinary tract infection N39.0 Dehydration E86.0 Diarrhea R19.7 Hypoxia R09.02 History of colon polyps Z86.010 CHF (congestive heart failure) I50.9 HTN (hypertension) I10 Coronary artery disease I25.10 Chronic kidney disease N18.9 Hyperlipidemia E78.5 Multiple sclerosis G35 Skin ulcer L98.499 Cellulitis L03.90 Hyponatremia E87.1 SUSHILA (acute kidney injury) N17.9 NSTEMI (non-ST elevated myocardial infarction) I21.4 Diastolic CHF I50.30 CHF exacerbation I50.9
[2022-07-15 09:21] VITALS: PULSE 82; O2SAT 92
[2022-07-15 11:25] VITALS: BP 116/71; PULSE 65; RESP 16; TEMP 36.7; O2SAT 95
[2022-07-15] MEDS: heparin 5,000 unit/mL INJ 1 mL 5000 UNIT SUBCUT (12:12)
[2022-07-15 12:42] VITALS: BP 116/71; PULSE 65; RESP 16; TEMP 36.7; O2SAT 95
--- NOTE | 2022-07-18 13:45 | PC.NURSE ---
Patient called Med/Surg stating that his Rx were called in to the incorrect pharmacy on Friday, 07/15. I reviewed d/c plan with him and meds were sent to [facility] in [place]. He states he uses [facility] in [place] and would prefer these be called in there. I called and spoke with Leroy at [facility] and provided verbal order on behalf of Dr. Guerin for all d/c medications, including both new and changed meds: Furosemide, Hydralazine, Nystatin powder, Spironolactone, and Aspirin. She verbalizes understanding and states she will get these prepared for him. I called back and spoke with patient at phone number listed in demographics and informed him of this. I then reviewed all medications with him, including new, discontinued, changed, and continued meds. He verbalizes understanding and denies any further questions/concerns. I called and spoke with [facility] in [place] and cancelled their Rx after they opened at 1400.
== END 2022-07-15 12:43 | disposition home health service (06) | DRG 602 ==
LOC: ER 21:23 → MEDSURG 22:44
PROVIDERS: Admitting Provider Internal Medicine; Emergency Provider Emergency Medicine; PCP Registered Nurse; Visit Provider Family Medicine
DX: L03.311 Cellulitis of abdominal wall (principal); I21.4 Non-ST elevation (NSTEMI) myocardial infarction; I50.33 Acute on chronic diastolic (congestive) heart failure; I13.0 Hypertensive heart and chronic kidney disease with heart failure and stage 1 through stage 4 chronic kidney disease, or unspecified chronic kidney disease; Z16.11 Resistance to penicillins; Z16.12 Extended spectrum beta lactamase (ESBL) resistance; N39.0 Urinary tract infection, site not specified; N17.9 Acute kidney failure, unspecified; E87.1 Hypo-osmolality and hyponatremia; N49.2 Inflammatory disorders of scrotum; N18.9 Chronic kidney disease, unspecified; I25.10 Atherosclerotic heart disease of native coronary artery without angina pectoris; Z95.5 Presence of coronary angioplasty implant and graft; G35 Multiple sclerosis; N31.9 Neuromuscular dysfunction of bladder, unspecified; I25.2 Old myocardial infarction; E78.5 Hyperlipidemia, unspecified; R33.8 Other retention of urine; B96.20 Unspecified Escherichia coli [E. coli] as the cause of diseases classified elsewhere; K57.90 Diverticulosis of intestine, part unspecified, without perforation or abscess without bleeding; L89.306 Pressure-induced deep tissue damage of unspecified buttock; L89.896 Pressure-induced deep tissue damage of other site; Z74.01 Bed confinement status; E86.0 Dehydration; F17.210 Nicotine dependence, cigarettes, uncomplicated; I25.5 Ischemic cardiomyopathy; Z79.02 Long term (current) use of antithrombotics/antiplatelets
CPT/HCPCS: 36415; 36416; 51702; 71045; 74177; 80048; 80053; 80202; 81001; 82274; 82962; 83605; 83630; 83735; 83880; 83930; 83935; 84100; 84145; 84295; 84300; 84484; 85025; 87040; 87070; 87075; 87077; 87086; 87186; 87205; 87493; 87506; 93005; 93306; 96372; 97161; 97167; 97535; J0696; J1644; J1940; J2270; J2543; J3370; J7030; Q3014; Q9967

== ENCOUNTER 2022-08-30 15:55 | Inpatient (IN) | payer MEDICARE, MEDICAID, SELFPAY ==
[2022-08-30] VITALS (9 sets, daily range): BP systolic 119–164; BP diastolic 68–104; PULSE 67–95; RESP 14–23; TEMP 37–37.2; O2SAT 92–96; BMI 28.0
--- NOTE | 2022-08-30 17:18 | ED_ITS ---
HPI - Wound/Laceration General: Chief Complaint: Wound/Laceration Stated Complaint: infected wound Time Seen by Provider: 08/30/22 16:28 Source: patient Limitations: no limitations History of Present Illness: This 67-year-old male with a history of MS, chronic kidney disease, cardiomyopathy and renal insufficiency presents to the ER with progressively worsening decubitus ulcer in the buttock. It started roughly a month ago and has progressively worsened to where it is draining foul-smelling discharge. Patient denies fever, nausea or vomiting. Associated symptoms: Denies chills Review of Systems Const: Denies: chills, body aches or change in appetite Eyes: Denies: change in vision or eye discharge ENMT: Denies: throat pain or dental pain Card: Denies: chest pain or lightheadedness GI: Denies: diarrhea : Denies: dysuria Musc: Denies: neck pain or back pain Skin/Breast: Reports: other (Decubitus ulcer) Neuro: Denies: headache(s) or weakness in extremities Psych: Denies: depression [place]/Lymph: Denies: easy bruising All/Imm: Denies: urticaria, tongue swelling or facial swelling PFSH ED PFSH: Medical History Acute on chronic renal failure Acute on chronic urinary retention Cardiomyopathy Cellulitis CHF (congestive heart failure) Chronic kidney disease Coronary artery disease Encephalopathy Falls frequently History of non-ST elevation myocardial infarction (NSTEMI) HTN (hypertension) Hyperlipidemia Hypothermia Ischemic cardiomyopathy Lactic acidosis Lacunar infarction Multiple sclerosis Multiple sclerosis Multiple sclerosis Periorbital edema of both eyes Skin ulcer Tobacco dependency Troponin level elevated Urinary retention Surgical History History of esophagogastroduodenoscopy (EGD) Hx of colonoscopy with polypectomy Hx of heart artery stent stents x 2018- unknown vessels Family History Sister Heart disease Hypertension Myocardial infarction Mother Cancer Daughter Myocardial infarction Social History Smoking and tobacco status: current every day smoker cigarettes Packs smoked per day: 0.5 [ Other cigarette details: Cutting down] Alcohol intake: never Substance/Drug Use: unknown Adopted: No Caregiver/support person: No Lives independently: No Marital status: Single Physical Exam Const: COMMON NORMALS: no acute distress, patient oriented x3, no limitations and alert HENMT: COMMON NORMALS: normocephalic HEAD & SCALP: normocephalic Eye: COMMON NORMALS: EOMs intact bilaterally Neck/C-Spine: COMMON NORMALS: full ROM and supple Chest: COMMONS NORMALS: normal inspection of the chest Resp: COMMON NORMALS: normal respiratory effort, No retractions, No use of accessory muscles and clear to auscultation bilaterally AUSCULTATION: clear to auscultation bilaterally Cardio: COMMON NORMALS: regular rate, regular rhythm and No murmurs present (Cardio) RATE: regular rate RHYTHM: regular rhythm GI: COMMON NORMALS: Normal to inspection, nondistended, normoactive bowel sounds present and non-tender : COMMON NORMALS: Yes no CVA tenderness BLADDER/KIDNEY EXAM: Yes no CVA tenderness Back/Pelvis: COMMON NORMALS: no CVA tenderness and no thoracic nor lumbar tenderness BACK IMAGE (MALE): 1. Decubitus ulcer at different stages. Presence of necrotic wound with foul smelling purulent discharge. Extremity: GENERAL: Yes normal exam except as noted Neuro: COMMON NORMALS: patient oriented x3 and no focal motor deficits SENSORIUM/ORIENTATION: Yes alert Psych: COMMON NORMALS: mental status grossly normal and cooperative Course Vital Signs: Vital signs: Vital Signs Temperature 98.9 F 08/30/22 16:11 Pulse Rate 69 08/30/22 18:00 Respiratory Rate 16 08/30/22 18:00 Blood Pressure 163/81 08/30/22 18:00 Pulse Oximetry 96 08/30/22 18:00 Oxygen Delivery Me thod Room Air 08/30/22 17:24 MDM - Wound/Laceration Medical Decision Making Medical decision making: History as above. Patient has an infected decubitus ulcer that has not received medical attention. There are necrotic areas around the also that warrants debridement. White count is elevated at 22,000. Patient is afebrile and is clinically stable. Blood cultures drawn and IV antibiotics started. Case discussed with Dr. Daniels who accepted patient for admission. Lab Data 08/30/22 16:17 08/30/22 16:17 Laboratory Results WBC 22.5 10^3/uL (4.0-10.0) H 08/30/22 16:17 RBC 4.62 10^6/uL (4.1-5.3) 08/30/22 16:17 Hgb 12.2 g/dL (11.7-16.6) 08/30/22 16:17 Hct 38.9 % (42.0-52.0) L 08/30/22 16:17 MCV 84.2 fl (80-94) 08/30/22 16:17 MCH 26.4 pg (28.0-34.0) L 08/30/22 16:17 MCHC 31.4 g/dL (30.0-36.0) 08/30/22 16:17 RDW 19.0 % (12.1-15.1) H 08/30/22 16:17 Plt Count 393 10^3/cmm (130-400) 08/30/22 16:17 MPV 9.9 fL (7.4-10.4) 08/30/22 16:17 Neut % (Auto) 86.8 % 08/30/22 16:17 Lymph % (Auto) 4.5 % 08/30/22 16:17 [place] % (Auto) 6.7 % 08/30/22 16:17 Eos % (Auto) 1.1 % 08/30/22 16:17 Baso % (Auto) 0.2 % 08/30/22 16:17 Neut # (Auto) 19.55 10^3/uL (1.8-7.7) H 08/30/22 16:17 Lymph # (Auto) 1.0 10^3/uL (0.8-4.8) 08/30/22 16:17 [place] # (Auto) 1.5 10^3/uL (0.2-0.9) H 08/30/22 16:17 Eos # (Auto) 0.2 10^3/uL (0.0-0.8) 08/30/22 16:17 Baso # (Auto) 0.1 10^3/uL (0.0-0.1) 08/30/22 16:17 Nucleated RBC % (auto) 0 % 08/30/22 16:17 Nucleated RBCs # 0.0 /100WBC 08/30/22 16:17 Sodium 131 mmol/L (136-145) L 08/30/22 16:17 Potassium 3.7 mmol/L (3.5-5.1) 08/30/22 16:17 Chloride 94 mmol/L (98-107) L 08/30/22 16:17 Carbon Dioxide 22 mmol/L (22-29) 08/30/22 16:17 Anion Gap 18.7 (5-19) 08/30/22 16:17 BUN 48 mg/dL (8-23) H 08/30/22 16:17 Creatinine 1.7 mg/dL (0.7-1.2) H 08/30/22 16:17 GFR Calculation 40.3 mL/min (90-130) L 08/30/22 16:17 Glucose 124 mg/dL (65-115) H 08/30/22 16:17 Calculated Osmolality 286 mOsm/kg (285-295) 08/30/22 16:17 Calcium 8.3 mg/dL (8.5-10.5) L 08/30/22 16:17 Total Bilirubin 0.7 mg/dL (0.15-1.2) 08/30/22 16:17 AST 12 U/L (0-40) 08/30/22 16:17 ALT 22 U/L (0-41) 08/30/22 16:17 Alkaline Phosphatase 239 U/L (40-130) H 08/30/22 16:17 Total Protein 6.7 g/dL (6.6-8.7) 08/30/22 16:17 Albumin 2.4 g/dL (3.5-5.2) L 08/30/22 16:17 Globulin 4.3 g/dL (1.3-4.6) 08/30/22 16:17 Discharge Plan Discharge Patient Disposition: Admitted As Inpatient Clinical Impression: Decubitus ulcer of sacral region, unstageable Condition: Stable Coding Level of Care Code ED Home Energy Inspector for Kathryn Olmstead
[2022-08-30 17:31] LABS: Basophils # 0.1 10^3/uL (0.0-0.1); Basophils % 0.2 %; Eosinophils # 0.2 10^3/uL (0.0-0.8); Eosinophils % 1.1 %; Hematocrit 38.9 % (42.0-52.0); Hemoglobin 12.2 g/dL (11.7-16.6); Lymphocytes % 4.5 %; Mean Corpuscular HGB Conc 31.4 g/dL (30.0-36.0); Mean Corpuscular Hemoglobin 26.4 pg (28.0-34.0); Mean Corpuscular Volume 84.2 fl (80-94); Mean Platelet Volume 9.9 fL (7.4-10.4); Monocytes # 1.5 10^3/uL (0.2-0.9); Monocytes % 6.7 %; Neutrophils # 19.55 10^3/uL (1.8-7.7); Neutrophils % 86.8 %; Nucleated Red Blood Cells % 0 %; Platelet Count 393 10^3/cmm (130-400); Red Blood Count 4.62 10^6/uL (4.1-5.3); White Blood Count 22.5 10^3/uL (4.0-10.0)
[2022-08-30 17:47] LABS: Alanine Aminotransferase 22 U/L (0-41); Albumin Level 2.4 g/dL (3.5-5.2); Alkaline Phosphatase 239 U/L (40-130); Anion Gap 18.7 (5-19); Aspartate Amino Transferase 12 U/L (0-40); Blood Urea Nitrogen 48 mg/dL (8-23); Calcium 8.3 mg/dL (8.5-10.5); Carbon Dioxide 22 mmol/L (22-29); Chloride 94 mmol/L (98-107); Globulin 4.3 g/dL (1.3-4.6); Glomerular Filtration Rate 40.3 mL/min (90-130); Glucose 124 mg/dL (65-115); Osmolality Calculated 286 mOsm/kg (285-295); Potassium 3.7 mmol/L (3.5-5.1); Sodium 131 mmol/L (136-145); Total Bilirubin 0.7 mg/dL (0.15-1.2); Total Protein 6.7 g/dL (6.6-8.7)
--- NOTE | 2022-08-30 19:17 | PM.HP ---
Providers/Chief Complaint Admitting Physician: Kamlesh Daniels MD Primary Care Provider: Kylie Vogel Chief Complaint: infected wound History of Present Illness Armando Coleman is a 67 year old male with past medical history of hypertension CHF, CKD coronary artery disease s/p stent, multiple sclerosis, neurogenic bladder, came today for worsening decubitus ulcer in the buttock.?It started roughly a month ago and has progressively worsened to where it is draining foul-smelling discharge.?Patient denies fever, nausea or vomiting. Pertinent labs includes: WBC 22.5, H&H 12/38, PLT : 393 , serum sodium 131, serum potassium 3.7, BUN 48, creatinine 1.7, urinalysis dirty. Review of Systems General: Reports: 10 or more systems reviewed and unremarkable except in HPI and below Const: Denies: fever(s), chills, body aches, change in appetite or diaphoresis Card: Denies: palpitations, edema, swelling of feet/ankles, dyspnea on exertion, orthopnea or leg pain with exertion Resp: Denies: dyspnea, productive cough, wheezing or pain on inspiration GI: Denies: abdominal pain, nausea, vomiting, diarrhea or constipation : Denies: flank pain or difficulty urinating Musc: Reports: other; Denies: back pain, extremity pain or extremity swelling Medications/Allergies Home Medications Medication Instructions Recorded Confirmed Last Taken Type nitroglycerin 0.4 mg sublingual 0.4 mg sublingual Q5M PRN chest 04/27/19 08/31/22 11/21/21 Rx tablet pain #30 tabs 20 tabs per pt & wif atorvastatin 40 mg tablet 40 mg PO QPM 11/22/21 08/31/22 06/21/22 History carvedilol 6.25 mg tablet 12.5 mg PO BID@0900,2100 #180 tabs 11/24/21 08/31/22 06/21/22 Rx clopidogrel 75 mg tablet 75 mg PO QAM #90 tabs 11/24/21 08/31/22 06/21/22 Rx potassium chloride 20 mEq 20 meq PO DAILY 07/08/22 08/31/22 Unknown History tablet,extended release(part/cryst) furosemide 40 mg tablet 40 mg PO DAILY 30 days #30 tabs 07/15/22 08/31/22 06/21/22 Rx hydralazine 25 mg tablet 12.5 mg PO TID #90 tabs 07/15/22 08/31/22 06/21/22 Rx Allergies Allergy/AdvReac Type Severity Reaction Status Date / Time No Known Allergies Allergy Verified 06/21/22 14:23 PFSH Acute PFSH: Medical History Acute on chronic renal failure Acute on chronic urinary retention Cardiomyopathy Cellulitis CHF (congestive heart failure) Chronic kidney disease Coronary artery disease Encephalopathy Falls frequently History of non-ST elevation myocardial infarction (NSTEMI) HTN (hypertension) Hyperlipidemia Hypothermia Ischemic cardiomyopathy Lactic acidosis Lacunar infarction Multiple sclerosis Multiple sclerosis Multiple sclerosis Periorbital edema of both eyes Skin ulcer Tobacco dependency Troponin level elevated Urinary retention Surgical History History of esophagogastroduodenoscopy (EGD) Hx of colonoscopy with polypectomy Hx of heart artery stent stents x 2017- unknown vessels Family History Sister Heart disease Hypertension Myocardial infarction Mother Cancer Daughter Myocardial infarction Social History Smoking and tobacco status: current every day smoker cigarettes Packs smoked per day: 0.5 [ Other cigarette details: Cutting down] Alcohol intake: never Substance/Drug Use: unknown Adopted: No Caregiver/support person: No Lives independently: No Marital status: Single Vitals/I&O/Wt Last Vital Signs Temp 98.9 F 08/30/22 16:11 Pulse 69 08/30/22 18:00 Resp 16 08/30/22 18:00 BP 163/81 08/30/22 18:00 Pulse Ox 96 08/30/22 18:00 O2 Del Method Room Air 08/30/22 17:24 Weight last 48 hrs Weight 86.183 kg Physical Exam Const: COMMON NORMALS: patient oriented x3 HENMT: COMMON NORMALS: normocephalic and atraumatic Resp: COMMON NORMALS: clear to auscultation bilaterally EFFORT & INSPECTION: Yes symmetric chest movement AUSCULTATION: clear to auscultation bilaterally Cardio: COMMON NORMALS: regular rate, regular rhythm, S1 normal heart sound present, S2 normal heart sound present, No gallops present (Cardio), No murmurs present (Cardio), No rub (Cardio) and Peripheral pulses 2+ throughout RATE: regular rate RHYTHM: regular rhythm HEART SOUNDS: S1 normal heart sound present and S2 normal heart sound present PERIPHERAL PULSES: Peripheral pulses 2+ throughout GI: COMMON NORMALS: Normal to inspection, nondistended, normoactive bowel sounds present, Soft to palpation, non-tender, No hepatosplenomegaly present and no masses AUSCULTATION: Yes normoactive bowel sounds PALPATION: Yes Soft to palpation and Yes No hepatosplenomegaly present RECTAL EXAM: Yes deferred Extremity: COMMON NORMALS: no clubbing, cyanosis or edema and no pedal edema Neuro: COMMON NORMALS: patient oriented x3 Data 08/31/22 04:39 08/31/22 04:39 A&P Assessment and plan (1) Decubitus ulcer of sacral region, unstageable: (2) Diastolic CHF: (3) HTN (hypertension): (4) Acute kidney injury superimposed on CKD: (5) Coronary artery disease: Plan 67 year old male with past medical history of hypertension CHF, CKD coronary artery disease s/p stent, multiple sclerosis, neurogenic bladder, came today for worsening decubitus ulcer in the buttock.?It started roughly a month ago and has progressively worsened to where it is draining foul-smelling discharge.?Patient denies fever, nausea or vomiting. Assessment: Decubitus ulcer of sacral region Follow blood cultures Wound cultures Currently on broad-spectrum antibiotics vancomycin and Zosyn Surgery consult for unstagable sacral ulcer. History of hypertension: Continue hydralazine Likely progressive CKD versus SUSHILA on CKD: Admission serum creatinine 1.7 Baseline serum creatinine appears to be around 1.2-1.5 Monitor BMP Avoid nephrotoxic's Monitor intake output charting Continue gentle IV hydration with normal saline Chronic hyponatremia: Serum sodium more or less appears around baseline. DVT prophylaxis: On Lovenox CODE STATUS: Full code Attestations Medical Necessity Statement*: Patient needs to be in hospital for management of decubitus ulcer of sacral region.Need for IV antibiotics, anticipated length of stay greater than 2 midnights. Coding Level of Care Code Acute Code for [facility] Diagnoses Decubitus ulcer of sacral region, unstageable L89.150 Diastolic CHF I50.30 HTN (hypertension) I10 Acute kidney injury superimposed on CKD N17.9; N18.9 Coronary artery disease I25.10
[2022-08-30] MEDS: cefepime 1,000 MG in sodium chloride 0.9% (plus) 50 ML 100 MG IV (19:52)
[2022-08-30 20:30] LABS: Add Urine Microscopic? YES; Bilirubin Urine 1+ (Negative); Blood Urine 2+ (Negative); Glucose Urine UA Norm (Normal); Ketones Urine 1+ (Negative); Leukocyte Esterase Urine 2+ (Negative); Nitrate Urine Positive (Negative); Protein Urine 1+ (Negative); Urine Appearance Hazy (CLEAR); Urine Color Yellow (Yellow); Urobilinogen Urine 4 mg/dL (Negative); pH Urine 5 (5-7)
[2022-08-30 20:34] LABS: WBC Urine 25-40 /hpf (0-5)
[2022-08-30 20:35] LABS: RBC Urine 0-4 /hpf (0-2)
[2022-08-30 20:36] LABS: Add Urine Culture? Yes; Bacteria Urine 2+ /hpf
--- NOTE | 2022-08-30 21:07 | PC.NURSE ---
Patient states my girlfriend will be here tomorrow she knows all of my meds. Unable to update/verify med rec at this time.
[2022-08-30] MEDS: hyDRALAzine 25 mg Tablet PO (21:09)
[2022-08-30] MEDS: vancomycin 1,000 MG in sodium chloride 0.9% 250 ML 250 MG IV (21:09)
[2022-08-30] MEDS: sodium chloride 0.9% 1,000 ML 75 ML IV (21:10)
[2022-08-30] MEDS: enoxaparin 30 mg/0.3 mL Syringe SUBCUT (21:10)
[2022-08-30] MEDS: piperacillin-tazobactam 3.375 GM in sodium chloride 0.9% (plus) 50 ML IV (22:36)
[2022-08-30] MEDS: nicotine 14 mg Patch 1 PATCH TRANSDERMA (22:36)
[2022-08-30] MEDS: nicotine 2 mg Gum BUCCAL (22:49)
[2022-08-31] VITALS (9 sets, daily range): BP systolic 105–176; BP diastolic 56–99; PULSE 72–90; RESP 15–18; TEMP 36.3–37; O2SAT 90–97
--- NOTE | 2022-08-31 02:31 | PC.NURSE ---
Upon patient arriving to the floor, patient answered corretly to person, place, time, and situation, but would ask the same questions multiple times. At this time, nurses went to patient room to turn patient and patient stated I didn't mean to wake you guys up. Bed alarm on.
[2022-08-31 05:53] LABS: Basophils # 0.1 10^3/uL (0.0-0.1); Basophils % 0.3 %; Eosinophils # 0.3 10^3/uL (0.0-0.8); Eosinophils % 1.3 %; Hematocrit 38.3 % (42.0-52.0); Hemoglobin 11.8 g/dL (11.7-16.6); Lymphocytes % 5.3 %; Mean Corpuscular HGB Conc 30.8 g/dL (30.0-36.0); Mean Corpuscular Hemoglobin 26.3 pg (28.0-34.0); Mean Corpuscular Volume 85.5 fl (80-94); Mean Platelet Volume 9.5 fL (7.4-10.4); Monocytes # 1.5 10^3/uL (0.2-0.9); Neutrophils # 15.75 10^3/uL (1.8-7.7); Neutrophils % 84.5 %; Nucleated Red Blood Cells % 0 %; Platelet Count 405 10^3/cmm (130-400); Red Blood Count 4.48 10^6/uL (4.1-5.3); White Blood Count 18.6 10^3/uL (4.0-10.0)
[2022-08-31] MEDS: piperacillin-tazobactam 3.375 GM in sodium chloride 0.9% (plus) 50 ML IV ×3 (05:54→23:30)
[2022-08-31] MEDS: nicotine 2 mg Gum BUCCAL ×2 (05:59→09:33)
[2022-08-31 06:11] LABS: Lactic Sepsis W/Reflex 1.5 mmol/L (0.5-2.2)
[2022-08-31 06:17] LABS: Anion Gap 18.3 (5-19); Blood Urea Nitrogen 41 mg/dL (8-23); Calcium 8.5 mg/dL (8.5-10.5); Carbon Dioxide 21 mmol/L (22-29); Chloride 95 mmol/L (98-107); Glomerular Filtration Rate 40.3 mL/min (90-130); Glucose 108 mg/dL (65-115); Osmolality Calculated 283 mOsm/kg (285-295); Potassium 3.3 mmol/L (3.5-5.1); Procalcitonin 0.37 ng/mL (0-0.5); Sodium 131 mmol/L (136-145)
--- NOTE | 2022-08-31 07:46 | PC.PHAR ---
[facility] PT MISS USES HIS NITRO STS PT TAKES FOR ALL KINDS OF PAIN NOT JUST CHEST PAIN- ALSO STS PT NEEDS REFILL ON TIZANIDINE 4MG TID
[2022-08-31] MEDS: hyDRALAzine 25 mg Tablet PO ×3 (08:44→20:56)
[2022-08-31] MEDS: acetaminophen 325 mg Tablet 650 MG PO (09:34)
[2022-08-31] MEDS: sodium chloride 0.9% 1,000 ML 75 ML IV ×2 (09:34→23:29)
--- NOTE | 2022-08-31 10:45 | P.CONIM_ITS ---
Providers/Reason For Consult Consulting Physician/Specialty*: Dr. Carlitos Shetty, DO/General surgery Reason for Consult*: Unstageable sacral decubitus ulcer Attending Physician: Kamlesh Daniels MD Primary Care Provider: Kylie Vogel History of Present Illness History of Present Illness Armando Coleman is a 67 year old male who presented to the hospital due to worsening of a sacral decubitus ulcer. There is eschar and tunneling over a very large wound. He reports pain to palpation in the area. Nothing makes pain better. Wound is foul-smelling. Review of Systems General: Reports: 10 or more systems reviewed and unremarkable except in HPI and below Medications/Allergies Home Medications Medication Instructions Recorded Confirmed Last Taken Type nitroglycerin 0.4 mg sublingual 0.4 mg sublingual Q5M PRN chest 04/27/19 08/31/22 11/21/21 Rx tablet pain #30 tabs 20 tabs per pt & wif atorvastatin 40 mg tablet 40 mg PO QPM 11/22/21 08/31/22 06/21/22 History carvedilol 6.25 mg tablet 12.5 mg PO BID@0900,2100 #180 tabs 11/24/21 08/31/22 06/21/22 Rx clopidogrel 75 mg tablet 75 mg PO QAM #90 tabs 11/24/21 08/31/22 06/21/22 Rx potassium chloride 20 mEq 20 meq PO DAILY 07/08/22 08/31/22 Unknown History tablet,extended release(part/cryst) furosemide 40 mg tablet 40 mg PO DAILY 30 days #30 tabs 07/15/22 08/31/22 06/21/22 Rx hydralazine 25 mg tablet 12.5 mg PO TID #90 tabs 07/15/22 08/31/22 06/21/22 Rx Allergies Allergy/AdvReac Type Severity Reaction Status Date / Time No Known Allergies Allergy Verified 06/21/22 14:23 Current Medications Generic Name Dose Route Start Last Admin Trade Name Freq PRN Reason Stop Dose Admin Acetaminophen 650 mg 08/30/22 19:10 08/31/22 09:34 Acetaminophen 325 Mg Tablet PO 650 mg Q6H PRN Administration Mild/Mod Pain Or Temp >/= 101 Enoxaparin Sodium 30 mg 08/30/22 19:15 08/30/22 21:10 Enoxaparin 30 Mg/0.3 Ml Syringe SUBCUT 30 mg Q24H EM Administration Hydralazine HCl 25 mg 08/30/22 21:00 08/31/22 08:44 Hydralazine 25 Mg Tablet PO 25 mg TID EM Administration Sodium Chloride 1,000 mls @ 75 mls/hr 08/30/22 19:15 08/31/22 09:34 Sodium Chloride 0.9% IV 75 mls/hr .[id number] EM Administration Piperacillin Sod/Tazobactam 50 mls @ 12.5 mls/hr 08/30/22 19:15 08/31/22 05:54 Sod 3.375 gm/ Sodium Chloride IV 12.5 mls/hr Q8H EM Administration Protocol Nicotine 1 patch 08/30/22 21:00 08/30/22 22:36 Nicotine 14 Mg Patch TRANSDERMA 1 patch BEDTIME EM Administration Nicotine Polacrilex 2 mg 08/30/22 21:30 08/31/22 09:33 Nicotine 2 Mg Gum BUCCAL 2 mg Q2H PRN Administration NICOTINE CRAVINGS PFSH Acute PFSH: Medical History Acute on chronic renal failure Acute on chronic urinary retention Cardiomyopathy Cellulitis CHF (congestive heart failure) Chronic kidney disease Coronary artery disease Encephalopathy Falls frequently History of non-ST elevation myocardial infarction (NSTEMI) HTN (hypertension) Hyperlipidemia Hypothermia Ischemic cardiomyopathy Lactic acidosis Lacunar infarction Multiple sclerosis Multiple sclerosis Multiple sclerosis Periorbital edema of both eyes Skin ulcer Tobacco dependency Troponin level elevated Urinary retention Surgical History History of esophagogastroduodenoscopy (EGD) Hx of colonoscopy with polypectomy Hx of heart artery stent stents x 2017- unknown vessels Family History Sister Heart disease Hypertension Myocardial infarction Mother Cancer Daughter Myocardial infarction Social History Smoking and tobacco status: current every day smoker cigarettes Packs smoked per day: 0.5 [ Other cigarette details: Cutting down] Alcohol intake: never Substance/Drug Use: unknown Adopted: No Caregiver/support person: No Lives independently: No Marital status: Single Vitals/I&O/Wt Last Vital Signs Temp 98.6 F 08/31/22 07:48 Pulse 81 08/31/22 07:48 Resp 18 08/31/22 07:48 BP 121/71 08/31/22 07:48 Pulse Ox 93 08/31/22 07:48 O2 Del Method Room Air 08/31/22 03:59 08/30/22 08/31/22 08/31/22 22:59 06:59 14:59 Intake Total 780 / 780 1010 / 1790 1410 / 1410 Output Total 300 / 300 Balance 780 / 780 710 / 1490 1410 / 1410 Weight last 48 hrs Weight 216 lb 14.4 oz Weight 190 lb Physical Exam Narrative: General : Patient is well developed , no acute distress, oriented x3 Head : Normal cephalic, a-traumatic. Ears : Pinnae and external canal are normal. Hearing is normal. Eyes : PERRLA, Sclera and injection are normal. No conjunctival discharge. Nose : Mucous membranes are without erythema. Throat : buccal mucosa is normal, gums are without significant recession or hypertrophy. Lungs : Equal chest rise bilaterally, no use of accessory muscles, trachea is midline. Cor : Rate and rhythm are normal. Abdomen : Soft, ND, NT, no g/r/m Skin: There is an unstageable sacral decubitus ulcer with tunneling and eschar. Foul-smelling Extremities : No edema, no cyanosis or clubbing, dorsalis pedis pulses are present bilaterally, non-tender to palpation of calves. Upper extremities are n ormal bilaterally. Back : non-tender to palpation, no CVA tenderness. Urinary Catheter Management: Barros: Cath Placed During This Visit: yes Reason for Continuing Indwelling Catheter: Assist Healing of Perineal & Sacral Wounds- Incontinent Patients Urinary Catheter Date of Insertion: 08/30/22 Urinary Catheter Time of Insertion: 19:49 Data 08/31/22 04:39 08/31/22 04:39 Micro: Microbiology 08/30/22 19:17 Blood Culture - Preliminary Blood SPECIMEN COLLECTED 08/30/22 19:20 Blood Culture - Preliminary Blood SPECIMEN COLLECTED A&P Assessment and plan (1) Decubitus ulcer of sacral region, unstageable: Plan IV antibiotics N.p.o. after midnight 2 OR in the morning for sharp excisional debridement of sacral decubitus ulcer The risk and benefits of the procedure, including but not limited to scar, numbness, bleeding, damage surrounding structures, damage to anal sphincter causing incontinence of flatus and/or stool, nonhealing wound, need for further surgery were explained to the patient. He is understanding the risks and wishes to proceed. Coding Level of Care Code 08523 Diagnoses Decubitus ulcer of sacral region, unstageable L89.150
[2022-08-31] MEDS: potassium chloride ER 20 mEq Tablet 40 MEQ PO (12:17)
[2022-08-31] MEDS: vancomycin 1,000 MG in sodium chloride 0.9% 250 ML 250 MG IV (15:43)
--- NOTE | 2022-08-31 17:26 | PM.PN ---
Subjective Subjective: Patient was seen and examined this morning, he was complaining of, pain in the sacral region, has been afebrile. Medications: Medication Review Details: Generic Name Dose Route Start Last Admin Trade Name Freq PRN Reason Stop Dose Admin Acetaminophen 650 mg 08/30/22 19:10 08/31/22 09:34 Acetaminophen 32 5 Mg Tablet PO 650 mg Q6H PRN Administration Mild/Mod Pain Or Temp >/= 101 Enoxaparin Sodium 30 mg 08/30/22 19:15 08/30/22 21:10 Enoxaparin 30 Mg /0.3 Ml Syringe SUBCUT 30 mg Q24H EM Administration Hydralazine HCl 25 mg 08/30/22 21:00 08/31/22 15:46 Hydralazine 25 M g Tablet PO 25 mg TID EM Administration Sodium Chloride 1,000 mls @ 75 ml s/hr 08/30/22 19:15 08/31/22 09:34 Sodium Chloride 0.9% IV 75 mls/hr .[id number] EM Administration Piperacillin Sod/T azobactam 50 mls @ 12.5 mls /hr 08/30/22 19:15 08/31/22 15:45 Sod 3.375 gm/ So dium Chloride IV 12.5 mls/hr Q8H EM Administration Protocol Vancomycin HCl 1,0 00 mg/ 250 mls @ 250 mls /hr 08/31/22 15:00 08/31/22 16:53 Sodium Chloride IV Infused Q18H EM Infusion Nicotine 1 patch 08/30/22 21:00 08/30/22 22:36 Nicotine 14 Mg P atch TRANSDERMA 1 patch BEDTIME EM Administration Nicotine Polacrile x 2 mg 08/30/22 21:30 08/31/22 09:33 Nicotine 2 Mg Gu m BUCCAL 2 mg Q2H PRN Administration NICOTINE CRAVINGS Vitals/I&O/Wt Last Vital Signs Temp 98.4 F 08/31/22 16:00 Pulse 74 08/31/22 16:00 Resp 16 08/31/22 16:00 BP 128/77 08/31/22 16:00 Pulse Ox 95 08/31/22 16:00 O2 Del Method Room Air 08/31/22 03:59 08/31/22 08/31/22 08/31/22 06:59 14:59 22:59 Intake Total 1010 / 1790 1939 250 / 2190 Output Total 300 / 300 1000 / 1000 Balance 710 / 1490 1939 / 1939 -750 / 1190 Weight last 48 hrs Weight 98.384 kg Weight 86.183 kg Physical Exam Const: COMMON NORMALS: patient oriented x3 HENMT: COMMON NORMALS: normocephalic and atraumatic HEAD & SCALP: normocephalic and atraumatic Resp: COMMON NORMALS: clear to auscultation bilaterally EFFORT & INSPECTION: Yes symmetric chest movement AUSCULTATION: clear to auscultation bilaterally Cardio: COMMON NORMALS: regular rate, regular rhythm, S1 normal heart sound present, S2 normal heart sound present, No gallops present (Cardio), No murmurs present (Cardio), No rub (Cardio) and Peripheral pulses 2+ throughout RATE: regular rate RHYTHM: regular rhythm HEART SOUNDS: S1 normal heart sound present and S2 normal heart sound present PERIPHERAL PULSES: Peripheral pulses 2+ throughout GI: COMMON NORMALS: Normal to inspection, nondistended, normoactive bowel sounds present, Soft to palpation, non-tender, No hepatosplenomegaly present and no masses AUSCULTATION: Yes normoactive bowel sounds PALPATION: Yes Soft to palpation and Yes No hepatosplenomegaly present RECTAL EXAM: Yes deferred Extremity: COMMON NORMALS: no clubbing, cyanosis or edema and no pedal edema Neuro: COMMON NORMALS: patient oriented x3 Urinary Catheter Management: Barros: Cath Placed During This Visit: yes Reason for Continuing Indwelling Catheter: Assist Healing of Perineal & Sacral Wounds- Incontinent Patients Urinary Catheter Date of Insertion: 08/30/22 Urinary Catheter Time of Insertion: 19:49 Data 08/31/22 04:39 08/31/22 04:39 Micro: Microbiology 08/30/22 19:17 Blood Culture - Preliminary Blood SPECIMEN COLLECTED 08/30/22 19:20 Blood Culture - Preliminary Blood SPECIMEN COLLECTED A&P Assessment and plan (1) Decubitus ulcer of sacral region, unstageable: (2) Diastolic CHF: (3) HTN (hypertension): (4) Acute kidney injury superimposed on CKD: (5) Coronary artery disease: Plan 67 year old male with past medical history of hypertension CHF, CKD coronary artery disease s/p stent, multiple sclerosis, neurogenic bladder, came today for worsening decubitus ulcer in the buttock.?It started roughly a month ago and has progressively worsened to where it is draining foul-smelling discharge.?Patient denies fever, nausea or vomiting. Assessment: Decubitus ulcer of sacral region Follow blood cultures Wound cultures Currently on broad-spectrum antibiotics vancomycin and Zosyn Surgery consult for unstagable sacral ulcer. Patient is scheduled for a.m. debridement History of hypertension: Continue hydralazine Likely progressive CKD versus SUSHILA on CKD: Admission serum creatinine 1.7 Baseline serum creatinine appears to be around 1.2-1.5 Monitor BMP Avoid nephrotoxic's Monitor intake output charting Continue gentle IV hydration with normal saline Chronic hyponatremia: Serum sodium more or less appears around baseline. DVT prophylaxis: On Lovenox CODE STATUS: Full code Attestations Medical Necessity Statement*: Needs to be in hospital for IV antibiotic, need for debridement. Coding Level of Care Code Acute Code for [facility] Diagnoses Decubitus ulcer of sacral region, unstageable L89.150 Diastolic CHF I50.30 HTN (hypertension) I10 Acute kidney injury superimposed on CKD N17.9; N18.9 Coronary artery disease I25.10
[2022-08-31] MEDS: atorvastatin 40 mg Tablet PO (18:17)
[2022-09-01] VITALS (18 sets, daily range): BP systolic 103–164; BP diastolic 56–102; PULSE 72–89; RESP 14–20; TEMP 36.4–36.9; O2SAT 92–100
[2022-09-01 05:35] LABS: Basophils # 0.1 10^3/uL (0.0-0.1); Basophils % 0.7 %; Eosinophils # 0.4 10^3/uL (0.0-0.8); Eosinophils % 2.3 %; Hematocrit 38.2 % (42.0-52.0); Hemoglobin 11.8 g/dL (11.7-16.6); Lymphocytes # 0.8 10^3/uL (0.8-4.8); Lymphocytes % 5.1 %; Mean Corpuscular HGB Conc 30.9 g/dL (30.0-36.0); Mean Corpuscular Hemoglobin 26.5 pg (28.0-34.0); Mean Corpuscular Volume 85.8 fl (80-94); Mean Platelet Volume 9.3 fL (7.4-10.4); Monocytes # 1.1 10^3/uL (0.2-0.9); Monocytes % 6.7 %; Neutrophils # 14.05 10^3/uL (1.8-7.7); Neutrophils % 84.6 %; Nucleated Red Blood Cells % 0 %; Platelet Count 400 10^3/cmm (130-400); Red Blood Count 4.45 10^6/uL (4.1-5.3); Red Cell Distribution Width 18.8 % (12.1-15.1); White Blood Count 16.6 10^3/uL (4.0-10.0)
[2022-09-01 05:49] LABS: Anion Gap 14.6 (5-19); Blood Urea Nitrogen 31 mg/dL (8-23); Calcium 8.6 mg/dL (8.5-10.5); Carbon Dioxide 23 mmol/L (22-29); Chloride 99 mmol/L (98-107); Glomerular Filtration Rate 60.2 mL/min (90-130); Glucose 135 mg/dL (65-115); Osmolality Calculated 285 mOsm/kg (285-295); Potassium 3.6 mmol/L (3.5-5.1); Sodium 133 mmol/L (136-145)
[2022-09-01] MEDS: piperacillin-tazobactam 3.375 GM in sodium chloride 0.9% (plus) 50 ML IV ×3 (06:13→22:19)
--- NOTE | 2022-09-01 11:10 | PM.PN ---
Vitals/I&O/Wt Last Vital Signs Temp 98.0 F 09/01/22 07:21 Pulse 78 09/01/22 08:00 Resp 16 09/01/22 08:00 BP 152/78 09/01/22 08:00 Pulse Ox 95 09/01/22 08:00 O2 Del Method Room Air 09/01/22 08:00 08/31/22 09/01/22 09/01/22 22:59 06:59 14:59 Intake Total 1620 / 3560 50 / 3610 Output Total 2650 / 2650 600 / 3250 Balance -1030 / 910 -550 / 360 Weight last 48 hrs Weight 216 lb 14.4 oz Weight 190 lb Physical Exam Urinary Catheter Management: Barros: Cath Placed During This Visit: yes Reason for Continuing Indwelling Catheter: Acute Urinary Retention or Obstruction Urinary Catheter Date of Insertion: 08/30/22 Urinary Catheter Time of Insertion: 19:49 Data 09/01/22 04:34 09/01/22 04:34 Micro: Microbiology 08/30/22 19:57 Urine Culture - Preliminary Urine,Clean Catch Gram Negative Rods 08/30/22 19:17 Blood Culture - Preliminary Blood NEGATIVE TO DATE 08/30/22 19:20 Blood Culture - Preliminary Blood NEGATIVE TO DATE 08/30/22 18:07 Wound Culture - Preliminary Buttock A&P Assessment and plan (1) Decubitus ulcer of sacral region, unstageable: Plan 2 OR for sharp excisional debridement of sacral decubitus ulcer. The risk and benefits were explained and documented. Attestations Medical Necessity Statement*: Per primary Coding Level of Care Code Acute Code for [facility] Diagnoses Decubitus ulcer of sacral region, unstageable L89.150
[2022-09-01] MEDS: HYDROmorphone 1 mg/mL INJ 1 mL IVP (11:13)
--- NOTE | 2022-09-01 11:54 | PC.PHAR ---
PHARMACY TO DOSE - VANCOMYCIN The patient's SCr dropped from 1.7 to 1.2 with the resulting CrCl melissa gfrom 48 to 68. I recalculated the vancomycin dosing and increased the dose and frequency to 1250mg every 12 hours from 1000mg every 18 hours. The new dose and frequency should give a predicted peak of 34.1 mcg/ml and a trough of 17.43 mcg/ml, which hits the high dose request. Pharmacy will draw a trough prior to the 4th dose and make adjustments based on the result and changes in the patient's renal function. Please let us know if there is anything else we can do in the care of this patient. Thanks, Tyrone Oliver, Pharm.D
--- NOTE | 2022-09-01 12:06 | P.ANESASSM_ITS ---
Pre-Anesthetic Assessment Height/Weight: Height 1.75 m Weight 98.384 kg Temp Pulse Resp BP Pulse Ox O2 Del Method 98.0 F 78 17 152/78 97 Room Air 09/01/22 07:21 09/01/22 08:00 09/01/22 11:13 09/01/22 08:00 09/01/22 11:13 09/01/22 08:00 Operation Date: 09/01/22 09:30 Proposed Procedures p Debridement(Not Applicable) - Carlitos Shetty DO Familial anesthetic complications: none Was Beta Radha taken within 24 hours: Yes Was Clonidine taken within 24 hours: N/A Social Tobacco and No alcohol Exam alert, oriented x 3 and regular rate & rhythm Airway Submandibular: within normal limits Cervical ROM: within normal limits Mallampati: Class II Dentition: chipped and false (upper) Pulmonary Chronic Obstructive Pulmonary Disease CV/HEM Coronary Artery Disease (stents), Congestive Heart Failure, Hypertension and Myocardial Infarction CONCLUSIONS ?Mildly dilated left ventricle with a diminished ejection ?fraction of around 40%. ?Moderate diffuse hypokinesia of the inferolateral wall segment. ?Grade III/IV diastolic dysfunction (restrictive filling ?pattern), severely elevated filling pressures. ?Thickened mitral valve. Mild-moderate mitral valve ?regurgitation. ?Features of aortic valve sclerosis. ?Mildly increased left atrial size. ?Trace aortic valve regurgitation. ?There is no pericardial effusion. ?There are no intracardiac masses. ?Compared to the study from 05/11/2020, there may be a significant ?change in the LV ejection fraction. ?Dr Debora Sevilla MD [facility] ?(Electronically Signed) ?Final Date:? ? ? 09 July 2022 Metabolic Hyperlipidemia and Morbid Obesity [facility] [place] [place] (bedridden) Anesthetic Plan ASA status: 3 Anesthesia: General (Prone case) Medications/Allergies Home Medications Medication Instructions Recorded Confirmed Last Taken Type nitroglycerin 0.4 mg sublingual 0.4 mg sublingual Q5M PRN chest 04/27/19 08/31/22 11/21/21 Rx tablet pain #30 tabs 20 tabs per pt & wif atorvastatin 40 mg tablet 40 mg PO QPM 11/22/21 08/31/22 06/21/22 History carvedilol 6.25 mg tablet 12.5 mg PO BID@0900,2100 #180 tabs 11/24/21 08/31/2206/21/23 Rx clopidogrel 75 mg tablet 75 mg PO QAM #90 tabs 11/24/21 08/31/22 06/21/22 Rx potassium chloride 20 mEq 20 meq PO DAILY 07/08/22 08/31/22 Unknown History tablet,extended release(part/cryst) furosemide 40 mg tablet 40 mg PO DAILY 30 days #30 tabs 07/15/22 08/31/22 06/21/22 Rx hydralazine 25 mg tablet 12.5 mg PO TID #90 tabs 07/15/22 08/31/22 06/21/22 Rx Allergies Allergy/AdvReac Type Severity Reaction Status Date / Time No Known Allergies Allergy Verified 06/21/22 14:23 Current Medications Generic Name Dose Route Start Last Admin Trade Name Freq PRN Reason Stop Dose Admin Acetaminophen 650 mg 08/30/22 19:10 08/31/22 09:34 Acetaminophen 325 Mg Tablet PO 650 mg Q6H PRN Administration Mild/Mod Pain Or Temp >/= 101 Atorvastatin Calcium 40 mg 08/31/22 18:00 08/31/22 18:17 Atorvastatin 40 Mg Tablet PO 40 mg QPM EM Administration Enoxaparin Sodium 30 mg 08/30/22 19:15 08/31/22 18:19 Enoxaparin 30 Mg/0.3 Ml Syringe SUBCUT Not Given Q24H EM Hydralazine HCl 25 mg 08/30/22 21:00 08/31/22 20:56 Hydralazine 25 Mg Tablet PO 25 mg TID EM Administration Sodium Chloride 1,000 mls @ 75 mls/hr 08/30/22 19:15 09/01/22 11:53 Sodium Chloride 0.9% IV Infused .[id number] EM Infusion Piperacillin Sod/Tazobactam 50 mls @ 12.5 mls/hr 08/30/22 19:15 09/01/22 06:13 Sod 3.375 gm/ Sodium Chloride IV 12.5 mls/hr Q8H EM Administration Protocol Nicotine 1 patch 08/30/22 21:00 08/31/22 20:58 Nicotine 14 Mg Patch TRANSDERMA Not Given BEDTIME EM Nicotine Polacrilex 2 mg 08/30/22 21:30 08/31/22 09:33 Nicotine 2 Mg Gum BUCCAL 2 mg Q2H PRN Administration NICOTINE CRAVINGS PFSH Anesthesia Medical History Acute on chronic renal failure Acute on chronic urinary retention Cardiomyopathy Cellulitis CHF (congestive heart failure) Chronic kidney disease Coronary artery disease Encephalopathy Falls frequently History of non-ST elevation myocardial infarction (NSTEMI) HTN (hypertension) Hyperlipidemia Hypothermia Ischemic cardiomyopathy Lactic acidosis Lacunar infarction Multiple sclerosis Multiple sclerosis Multiple sclerosis Periorbital edema of both eyes Skin ulcer Tobacco dependency Troponin level elevated Urinary retention Surgical History History of esophagogastroduodenoscopy (EGD) Hx of colonoscopy with polypectomy Hx of heart artery stent stents x 2017- unknown vessels Family History Sister Heart disease Hypertension Myocardial infarction Mother Cancer Daughter Myocardial infarction Social History Smoking and tobacco status: current every day smoker cigarettes Packs smoked per day: 0.5 [ Other cigarette details: Cutting down] Alcohol intake: never Substance/Drug Use: unknown Adopted: No Caregiver/support person: No Lives independently: No Marital status: Single Data Anesthesia 09/01/22 04:34 09/01/22 04:34 Short CBC 08/30/22 08/31/22 09/01/22 Range/Units 16:17 04:39 04:34 WBC 22.5 H 18.6 H 16.6 H (4.0-10.0) 10^3/uL Hgb 12.2 11.8 11.8 (11.7-16.6) g/dL Hct 38.9 L 38.3 L 38.2 L (42.0-52.0) % MCV 84.2 85.5 85.8 (80-94) fl Plt Count 393 405 H 400 (130-400) 10^3/cmm Neut % (Auto) 86.8 84.5 84.6 % Neut # (Auto) 19.55 H 15.75 H 14.05 H (1.8-7.7) 10^3/uL BMP 08/30/22 08/31/22 09/01/22 16:17 04:39 04:34 Sodium 131 L 131 L 133 L Potassium 3.7 3.3 L 3.6 Chloride 94 L 95 L 99 Carbon Dioxide 22 21 L 23 BUN 48 H 41 H 31 H Creatinine 1.7 H 1.7 H 1.2 Glucose 124 H 108 135 H Calcium 8.3 L 8.5 8.6 Liver Function 08/30/22 Range/Units 16:17 Total Bilirubin 0.7 (0.15-1.2) mg/dL AST 12 (0-40) U/L ALT 22 (0-41) U/L Alkaline Phosphatase 239 H (40-130) U/L Albumin 2.4 L (3.5-5.2) g/dL Urine 08/30/22 Range/Units 19:57 Urine Color Yellow (Yellow) Urine Appearance Hazy A (CLEAR) Urine pH 5 (5-7) Ur Specific Alexis 1.020 (1.005-1.030) Urine Protein 1+ H (Negative) Urine Glucose (UA) Norm (Normal) Urine Ketones 1+ H (Negative) Urine Nitrate Positive H (Negative) Urine Bilirubin 1+ H (Negative) Ur Leukocyte Esterase 2+ H (Negative) Urine RBC 0-4 H (0-2) /hpf Urine WBC 25-40 H (0-5) /hpf Microbiology 08/30/22 18:07 Wound Culture - Preliminary Buttock 08/30/22 19:57 Urine Culture - Preliminary Urine,Clean Catch Gram Negative Rods 08/30/22 19:17 Blood Culture - Preliminary Blood NEGATIVE TO DATE 08/30/22 19:20 Blood Culture - Preliminary Blood NEGATIVE TO DATE Cardiac Studies: Echocardiogram 07/09/22 Echocardiogram Limited Views 04/28/22 Echocardiogram Ultrasound 09/03/19
--- NOTE | 2022-09-01 12:25 | PM.OP ---
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 Carlitos Shetty, Anesthesia: General Estimated blood loss (mL): 5 Complications: None apparent Findings: Osteomyelitis of the coccyx Brief History: This is a very pleasant 67-year-old gentleman with an unstageable sacral decubitus ulcer and right ischial tuberosity decubitus ulcer. Sharp excisional debridement was indicated. The risk and benefits were explained and documented. Procedure: Patient was brought into the operating room and placed on the OR table in the prone position. General endotracheal ovation was achieved by the department anesthesia. A timeout was performed. All present were in agreement. Patient's backside was inspected prepped and draped in usual sterile fashion. Bovie cautery was used and cut mode to outline the eschar and then the eschar was removed with electrocautery. Curettes were further used for sharp excisional debridement. The same procedure was repeated on the right ischial tuberosity decubitus ulcer. The sacral decubitus ulcer went down to muscle and bone making it a stage IV. The ischial tuberosity ulcer went down to fat, making his stage III. The coccyx was obviously involved and I was able to pull it off with just my hands. I sent the coccyx for culture. Dissection was carried down to fresh bleeding tissue. Pulse manager application development was used with 3 L normal saline. Wet-to-dry dressings were placed. The sacral decubitus ulcer measured 13 cm x 9.5 cm x 2.5 cm in depth. The ischial tuberosity ulcer on the right measured 2.5 cm x 2 cm x 0.8 cm in depth.
--- NOTE | 2022-09-01 12:49 | ANE.PACU2 ---
Inpatient post-anesthesia follow up: Airway intact: Yes Vital signs: Temperature 98.0 F Pulse Rate 78 Respiratory Rate 17 Blood Pressure 152/78 Pulse Oximetry 97 Oxygen Delivery Me thod Room Air Oxygen Flow Rate 6 Fraction of Inspir ed Oxygen Hydration adequate: Yes Nausea and vomiting: No Pain level: 2 Mental status: Baseline
[2022-09-01] MEDS: sodium chloride 0.9% 1,000 ML 75 ML IV (14:52)
[2022-09-01] MEDS: hyDRALAzine 25 mg Tablet PO ×2 (14:52→21:26)
[2022-09-01] MEDS: atorvastatin 40 mg Tablet PO (18:12)
[2022-09-01] MEDS: enoxaparin 30 mg/0.3 mL Syringe SUBCUT (18:13)
[2022-09-01] MEDS: nicotine 2 mg Gum BUCCAL (18:17)
--- NOTE | 2022-09-01 19:14 | P.PN_ITS ---
Subjective Subjective: Patient was seen and examined this morning, is scheduled for debridement today. Medications: Medication Review Details: Generic Name Dose Route Start Last Admin Trade Name Freq PRN Reason Stop Dose Admin Acetaminophen 650 mg 08/30/22 19:10 08/31/22 09:34 Acetaminophen 32 5 Mg Tablet PO 650 mg Q6H PRN Administration Mild/Mod Pain Or Temp >/= 101 Atorvastatin Calci um 40 mg 08/31/22 18:00 09/01/22 18:12 Atorvastatin 40 Mg Tablet PO 40 mg QPM EM Administration Enoxaparin Sodium 30 mg 08/30/22 19:15 09/01/22 18:13 Enoxaparin 30 Mg /0.3 Ml Syringe SUBCUT 30 mg Q24H EM Administration Hydralazine HCl 25 mg 08/30/22 21:00 09/01/22 14:52 Hydralazine 25 M g Tablet PO 25 mg TID EM Administration Sodium Chloride 1,000 mls @ 75 ml s/hr 08/30/22 19:15 09/01/22 14:52 Sodium Chloride 0.9% IV 75 mls/hr .[id number] EM Administration Piperacillin Sod/T azobactam 50 mls @ 12.5 mls /hr 08/30/22 19:15 09/01/22 15:03 Sod 3.375 gm/ So dium Chloride IV 12.5 mls/hr Q8H EM Administration Protocol Sodium Chloride 1,000 mls @ 30 ml s/hr 09/01/22 11:15 09/01/22 13:40 Sodium Chloride 0.9% IV 09/02/22 11:14 Not Given .Q24H EM Nicotine 1 patch 08/30/22 21:00 08/31/22 20:58 Nicotine 14 Mg P atch TRANSDERMA Not Given BEDTIME EM Nicotine Polacrile x 2 mg 08/30/22 21:30 09/01/22 18:17 Nicotine 2 Mg Gu m BUCCAL 2 mg Q2H PRN Administration NICOTINE CRAVINGS Vitals/I&O/Wt Last Vital Signs Temp 97.8 F 09/01/22 15:00 Pulse 84 09/01/22 15:00 Resp 17 09/01/22 15:00 BP 123/73 09/01/22 15:00 Pulse Ox 92 09/01/22 15:00 O2 Del Method Room Air 09/01/22 13:09 O2 Flow Rate 6 09/01/22 12:44 09/01/22 09/01/22 09/01/22 06:59 14:59 22:59 Intake Total 50 / 3610 1690 / 1690 480 / 2170 Output Total 600 / 3250 5 / 5 Balance -550 / 360 1685 / 1685 480 / 2165 Weight last 48 hrs Weight 98.384 kg Physical Exam Const: COMMON NORMALS: patient oriented x3 HENMT: COMMON NORMALS: normocephalic and atraumatic HEAD & SCALP: normocephalic and atraumatic Resp: COMMON NORMALS: clear to auscultation bilaterally EFFORT & INSPECTION: Yes symmetric chest movement AUSCULTATION: clear to auscultation bilaterally Cardio: COMMON NORMALS: regular rate, regular rhythm, S1 normal heart sound present, S2 normal heart sound present, No gallops present (Cardio), No murmurs present (Cardio), No rub (Cardio) and Peripheral pulses 2+ throughout RATE: regular rate RHYTHM: regular rhythm HEART SOUNDS: S1 normal heart sound present and S2 normal heart sound present PERIPHERAL PULSES: Peripheral pulses 2+ throughout GI: COMMON NORMALS: Normal to inspection, nondistended, normoactive bowel sounds present, Soft to palpation, non-tender, No hepatosplenomegaly present and no masses AUSCULTATION: Yes normoactive bowel sounds PALPATION: Yes Soft to palpation and Yes No hepatosplenomegaly present RECTAL EXAM: Yes deferred Extremity: COMMON NORMALS: no clubbing, cyanosis or edema and no pedal edema Neuro: COMMON NORMALS: patient oriented x3 Urinary Catheter Management: Barros: Cath Placed During This Visit: yes Reason for Continuing Indwelling Catheter: Assist Healing of Perineal & Sacral Wounds- Incontinent Patients Urinary Catheter Date of Insertion: 08/30/22 Urinary Catheter Time of Insertion: 19:49 Data 09/01/22 04:34 09/01/22 04:34 Micro: Microbiology 09/01/22 12:00 Gram Stain - Final Buttock 09/01/22 12:00 Gram Stain - Final Buttock 08/30/22 18:07 Wound Culture - Preliminary Buttock 08/30/22 19:57 Urine Culture - Preliminary Urine,Clean Catch Gram Negative Rods 08/30/22 19:17 Blood Culture - Preliminary Blood NEGATIVE TO DATE 08/30/22 19:20 Blood Culture - Preliminary Blood NEGATIVE TO DATE A&P Assessment and plan (1) Decubitus ulcer of sacral region, unstageable: (2) Diastolic CHF: (3) HTN (hypertension): (4) Acute kidney injury superimposed on CKD: (5) Coronary artery disease: Plan 67 year old male with past medical history of hypertension CHF, CKD coronary artery disease s/p stent, multiple sclerosis, neurogenic bladder, came today for worsening decubitus ulcer in the buttock.?It started roughly a month ago and has progressively worsened to where it is draining foul-smelling discharge.?Patient denies fever, nausea or vomiting. Assessment: Decubitus ulcer of sacral region Follow blood cultures Wound cultures Currently on broad-spectrum antibiotics vancomycin and Zosyn Surgery consult for unstagable sacral ulcer. S/p debridement Coccyx osteomyelitis: Follow-up on culture. We will need long-term IV antibiotic Consult ID when available History of hypertension: Continue hydralazine Likely progressive CKD versus SUSHILA on CKD: Admission serum creatinine 1.7 Baseline serum creatinine appears to be around 1.2-1.5 Monitor BMP Avoid nephrotoxic's Monitor intake output charting Continue gentle IV hydration with normal saline Chronic hyponatremia: Serum sodium more or less appears around baseline. DVT prophylaxis: On Lovenox CODE STATUS: Full code Attestations Medical Necessity Statement*: Needs to be in hospital for IV antibiotics. Coding Level of Care Code Acute Code for [facility] Fwd Diagnoses Decubitus ulcer of sacral region, unstageable L89.150 Diastolic CHF I50.30 HTN (hypertension) I10 Acute kidney injury superimposed on CKD N17.9; N18.9 Coronary artery disease I25.10
[2022-09-01] MEDS: nicotine 14 mg Patch 1 PATCH TRANSDERMA (21:26)
[2022-09-02] VITALS (10 sets, daily range): BP systolic 106–174; BP diastolic 63–102; PULSE 75–94; RESP 18; TEMP 36.5–36.7; O2SAT 95–96
[2022-09-02] MEDS: vancomycin 1,250 MG/250 ML PIGGYBACK 250 MG IV ×2 (03:38→16:09)
[2022-09-02] MEDS: nicotine 2 mg Gum BUCCAL ×3 (05:08→23:07)
[2022-09-02] MEDS: sodium chloride 0.9% 1,000 ML 75 ML IV ×2 (05:09→21:37)
[2022-09-02 05:19] LABS: Basophils # 0.1 10^3/uL (0.0-0.1); Basophils % 0.3 %; Eosinophils # 0.2 10^3/uL (0.0-0.8); Hematocrit 37.2 % (42.0-52.0); Hemoglobin 11.5 g/dL (11.7-16.6); Lymphocytes # 1.2 10^3/uL (0.8-4.8); Lymphocytes % 6.6 %; Mean Corpuscular HGB Conc 30.9 g/dL (30.0-36.0); Mean Corpuscular Hemoglobin 26.4 pg (28.0-34.0); Mean Corpuscular Volume 85.3 fl (80-94); Mean Platelet Volume 9.4 fL (7.4-10.4); Monocytes # 1.3 10^3/uL (0.2-0.9); Monocytes % 6.9 %; Neutrophils # 15.67 10^3/uL (1.8-7.7); Neutrophils % 84.5 %; Nucleated Red Blood Cells % 0 %; Platelet Count 389 10^3/cmm (130-400); Red Blood Count 4.36 10^6/uL (4.1-5.3); Red Cell Distribution Width 18.7 % (12.1-15.1); White Blood Count 18.6 10^3/uL (4.0-10.0)
[2022-09-02 05:45] LABS: Anion Gap 14.6 (5-19); Blood Urea Nitrogen 24 mg/dL (8-23); Carbon Dioxide 21 mmol/L (22-29); Chloride 102 mmol/L (98-107); Glomerular Filtration Rate 74.3 mL/min (90-130); Glucose 128 mg/dL (65-115); Osmolality Calculated 284 mOsm/kg (285-295); Potassium 3.6 mmol/L (3.5-5.1); Sodium 134 mmol/L (136-145)
[2022-09-02] MEDS: piperacillin-tazobactam 3.375 GM in sodium chloride 0.9% (plus) 50 ML IV ×3 (06:27→23:09)
[2022-09-02] MEDS: hyDRALAzine 25 mg Tablet PO ×3 (09:04→21:15)
--- NOTE | 2022-09-02 09:34 | ECG_ITS ---
[facility] Test Date: 2022-09-02 Pat Name: Armando Coleman Department: Room: 278 Gender: [facility] Director: : 1955 Requested By: Carlitos Shetty Order Number: [id number] Johanny MD: Parish Lea M.D. Measurements Intervals [place] Rate: 93 P: -78 DC: 170 QRS: 76 QRSD: 206 T: 34 QT: 472 QTc: 590 Interpretive Statements SINUS RHYTHM WITH OCCASIONAL VENTRICULAR PREMATURE COMPLEXES RIGHT BUNDLE BRANCH BLOCK [120+ ms QRS DURATION, UPRIGHT V1, 40+ ms S IN I/aVL/V4/V5/V6] INFERIOR MYOCARDIAL INFARCTION , OF INDETERMINATE AGE [40+ ms Q WAVE AND/OR ST/T ABNORMALITY IN II/aVF] Compared to ECG 07/08/2022 14:15:07 Ventricular premature complex(es) now present Right bundle-branch block now present ST (T wave) deviation now present First degree AV block no longer present Intraventricular conduction delay no longer present Atrial abnormality no longer present Myocardial infarct finding still present Electronically Signed On 09-03-2022 8:31:13 CDT by Parish Lea M.D. [email or web address]
--- NOTE | 2022-09-02 09:45 | PM.PN ---
Subjective Subjective: Patient doing well today with no new complaints Vitals/I&O/Wt Last Vital Signs Temp 97.7 F 09/02/22 07:42 Pulse 87 09/02/22 07:42 Resp 18 09/02/22 07:42 BP 159/95 09/02/22 07:42 Pulse Ox 96 09/02/22 07:42 O2 Del Method Room Air 09/02/22 07:42 O2 Flow Rate 6 09/01/22 12:44 09/01/22 09/02/22 09/02/22 22:59 06:59 14:59 Intake Total 530 / 2220 1300 / 3520 240 / 240 Output Total 1000 / 1005 700 / 1705 Balance -470 / 1215 600 / 1815 240 / 240 Physical Exam Narrative: General: No acute distress, awake alert and oriented x3 Wound: Stage IV sacral decubitus ulcer with healthy bleeding base. Same with stage III right ischial tuberosity decubitus ulcer Urinary Catheter Management: Barros: Cath Placed During This Visit: yes Reason for Continuing Indwelling Catheter: Acute Urinary Retention or Obstruction Urinary Catheter Date of Insertion: 08/30/22 Urinary Catheter Time of Insertion: 19:49 Data 09/02/22 04:46 09/02/22 04:46 Micro: Microbiology 09/01/22 12:00 Gram Stain - Final Buttock 09/01/22 12:00 Gram Stain - Final Buttock 08/30/22 18:07 Wound Culture - Preliminary Buttock 08/30/22 19:57 Urine Culture - Preliminary Urine,Clean Catch Gram Negative Rods A&P Assessment and plan (1) Sacral decubitus ulcer, stage IV: (2) Right ischial pressure sore, stage 3: (3) Osteomyelitis: Plan Wet-to-dry dressing changes twice daily Medical management per hospitalist Attestations Medical Necessity Statement*: Per primary Coding Level of Care Code Acute Code for [facility] Diagnoses Sacral decubitus ulcer, stage IV L89.154 Right ischial pressure sore, stage 3 L89.313 Osteomyelitis M86.9
--- NOTE | 2022-09-02 11:01 | PC.SOCIAL ---
Imm update Imm updated with patient at bedside. Copy of page 2 provided. Patient verbalized understanding. Copy in chart initialed, dated and timed.
[2022-09-02 15:33] LABS: Vancomycin Trough 20.2 ug/mL (10-15)
--- NOTE | 2022-09-02 16:53 | P.PN_ITS ---
Subjective Subjective: Hospital course, labs appreciated. No acute events overnight. Patient sitting comfortably in bed. Family is at bedside. Patient bedside who had come to visit him went unresponsive and had a rapid response called earlier today morning. Patient himself doing okay. Denies any nausea, vomiting, headache. States he is feeling better. Vitals/I&O/Wt Last Vital Signs Temp 97.9 F 09/02/22 16:00 Pulse 94 09/02/22 16:00 Resp 18 09/02/22 16:00 BP 174/102 09/02/22 16:00 Pulse Ox 96 09/02/22 16:00 O2 Del Method Room Air 09/02/22 16:00 O2 Flow Rate 6 09/01/22 12:44 09/02/22 09/02/22 09/02/22 06:59 14:59 22:59 Intake Total 1300 / 3520 530 / 530 Output Total 700 / 1705 1000 / 1000 Balance 600 / 1815 -470 / -470 Physical Exam Const: COMMON NORMALS: patient oriented x3 HENMT: COMMON NORMALS: normocephalic and atraumatic HEAD & SCALP: normocephalic and atraumatic Resp: COMMON NORMALS: clear to auscultation bilaterally EFFORT & INSPECTION: Yes symmetric chest movement AUSCULTATION: clear to auscultation bilaterally Cardio: COMMON NORMALS: regular rate, regular rhythm, S1 normal heart sound present, S2 normal heart sound present, No gallops present (Cardio), No murmurs present (Cardio), No rub (Cardio) and Peripheral pulses 2+ throughout RATE: regular rate RHYTHM: regular rhythm HEART SOUNDS: S1 normal heart sound present and S2 normal heart sound present PERIPHERAL PULSES: Peripheral pulses 2+ throughout GI: COMMON NORMALS: Normal to inspection, nondistended, normoactive bowel sounds present, Soft to palpation, non-tender, No hepatosplenomegaly present and no masses AUSCULTATION: Yes normoactive bowel sounds PALPATION: Yes Soft to palpation and Yes No hepatosplenomegaly present RECTAL EXAM: Yes deferred Extremity: COMMON NORMALS: no clubbing, cyanosis or edema and no pedal edema Neuro: COMMON NORMALS: patient oriented x3 Skin: OTHER: Wound: Stage IV sacral decubitus ulcer with healthy bleeding base.? Same with stage III right ischial tuberosity decubitus ulcer Urinary Catheter Management: Barros: Cath Placed During This Visit: yes Reason for Continuing Indwelling Catheter: Acute Urinary Retention or Obstruction Urinary Catheter Date of Insertion: 08/30/22 Urinary Catheter Time of Insertion: 19:49 Data 09/02/22 04:46 09/02/22 04:46 Micro: Microbiology 08/30/22 19:57 Urine Culture - Final Urine,Clean Catch Enterobacter cloacae 09/01/22 12:00 Gram Stain - Final Buttock Wound Culture - Preliminary Strep species, gamma-hemolytic 09/01/22 12:00 Gram Stain - Final Buttock Wound Culture - Preliminary 08/30/22 18:07 Wound Culture - Preliminary Buttock A&P Assessment and plan (1) Decubitus ulcer of sacral region, unstageable: (2) Diastolic CHF: (3) HTN (hypertension): (4) Acute kidney injury superimposed on CKD: (5) Coronary artery disease: (6) Sacral decubitus ulcer, stage IV: (7) Osteomyelitis: (8) Multiple sclerosis: Plan 67 year old male with past medical history of hypertension CHF, CKD coronary artery disease s/p stent, multiple sclerosis, neurogenic bladder, came today for worsening decubitus ulcer in the buttock.?It started roughly a month ago and has progressively worsened to where it is draining foul-smelling discharge.?Patient denies fever, nausea or vomiting. Assessment: Decubitus ulcer of sacral region: Post debridement day 1. Appreciate surgical recommendations. Wound cultures growing Streptococcus. Check MRSA swab. Blood cultures so far negative. Wound care as per surgical team. Patient would most likely need aggressive wound care going forward. For now continue with vancomycin and Zosyn. Zosyn will cover for Enterobacter in the urine and for Streptococcus. Awaiting culture sensitivities before discontinuing vancomycin. 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 Coccyx sent for cultures. Check ESR, CRP. Pelvis CT scan. Follow-up on culture. Continue with IV antibiotics as above. History of hypertension: Blood pressure is elevated. Goal blood pressure less than 140/90 mmHg. Continue hydralazine. Restart home dose of Coreg. Likely progressive CKD versus SUSHILA on CKD: Baseline serum creatinine appears to be around 1-1.2. Monitor BMP Avoid nephrotoxic's. Creatinine improving to 1. Monitor intake output charting Continue gentle IV hydration with normal saline Chronic hyponatremia: Stable. Serum sodium more or less appears around baseline. Discharge plan: Patient most likely requires aggressive wound care with long- term IV antibiotics. Discussed with patient regarding possible transfer to SNF. Discussed that he required daily dressing changes are to be difficult to be done at home. Patient will think. Patient so far wants to go home with possible home health. DVT prophylaxis: On Lovenox Pepcid for PUD prophylaxis. CODE STATUS: Full code Attestations Medical Necessity Statement*: Requires further hospitalization for management of decubitus ulcer with coccyx osteomyelitis in a patient with baseline multiple sclerosis, bedbound Diagnoses Decubitus ulcer of sacral region, unstageable L89.150 Diastolic CHF I50.30 HTN (hypertension) I10 Acute kidney injury superimposed on CKD N17.9; N18.9 Coronary artery disease I25.10 Sacral decubitus ulcer, stage IV L89.154 Osteomyelitis M86.9 Multiple sclerosis G35
--- NOTE | 2022-09-02 16:59 | CTR_ITS ---
PROCEDURE INFORMATION: Exam: CT Abdomen And Pelvis Without Contrast Exam date and time: 09/02/2022 6:20 PM Age: 67 years old Clinical indication: Other: Osteomyelitis- unspecified location TECHNIQUE: Imaging protocol: Computed tomography of the abdomen and pelvis without contrast. Radiation optimization: All CT scans at this facility use at least one of these dose optimization techniques: automated exposure control; mA and/or kV adjustment per patient size (includes targeted exams where dose is matched to clinical indication); or iterative reconstruction. REPORTING DATA: Count of CT and Cardiac NM exams in prior 12 months: This patient has received 4 known CTs and 0 known cardiac nuclear medicine studies in the 12 months prior to the current study. COMPARISON: CT abdomen pelvis w con* [id number] 07/07/2022 7:05 PM RADIATION DOSE METRICS: Total DLP (mGy-cm): 906 FINDINGS: Liver: Normal. No mass. Gallbladder and bile ducts: Contracted gallbladder. No calcified stones. No ductal dilation. Pancreas: Normal. No ductal dilation. Spleen: Normal. No splenomegaly. Adrenal glands: Normal. No mass. Kidneys and ureters: Vascular calcifications noted within both kidneys. No hydronephrosis. Stomach and bowel: No obstruction. No mucosal thickening. Appendix: No evidence of appendicitis. Intraperitoneal space: No free air. No significant fluid collection. Vasculature: No abdominal aortic aneurysm. Lymph nodes: No enlarged lymph nodes. Urinary bladder: Barros catheter noted within a decompressed bladder. Reproductive: Unremarkable as visualized. Bones/joints: No acute fracture. No irregular osseous erosions. Soft tissues: Sacral decubitus ulcer noted extending to the bone at the level of the coccyx. Similar appearance of a intramuscular lipoma in the left gluteus minimus. Mild presacral edema is noted. CT/CT abdomen pelvis wo con [id number] IMPRESSION: Sacral decubitus ulcer extending to the bone at the tip of the coccyx with osteomyelitis likely at this location. Otherwise, no apparent areas of osteomyelitis elsewhere.
[2022-09-02 17:32] LABS: Erythrocyte Sedimentation Rate 93 mm/hr (0-10)
[2022-09-02] MEDS: enoxaparin 30 mg/0.3 mL Syringe SUBCUT (18:11)
[2022-09-02] MEDS: atorvastatin 40 mg Tablet PO (18:12)
[2022-09-02 18:16] LABS: Thyroid Stimulating Hormone 0.52 uIU/mL (0.27-4.20); Vitamin B12 541 pg/mL (232-1245)
[2022-09-02 18:27] LABS: C Reactive Protein 93.4 mg/L (0.0-4.9); Iron 64 ug/dL (59-158); Percent Saturation 42.3 % (20-50); Total Iron Binding Capacity 151 mcg/dl; Unsaturated Iron Binding 87 ug/dL (112-347)
[2022-09-02] MEDS: carvedilol 12.5 mg Tablet PO (21:15)
[2022-09-03] VITALS (9 sets, daily range): BP systolic 108–156; BP diastolic 66–86; PULSE 61–73; RESP 16–23; TEMP 36.3–37.1; O2SAT 93–96
--- NOTE | 2022-09-03 00:47 | PC.NURSE ---
This nurse asked the pt to spit his gum out so he does not choke and pt stated I will not spit it out, I stick it to the roof of my mouth The pt was educated on choking risk/ Pt verbalized understanding and refuses to spit out gum at this time.
[2022-09-03 02:25] LABS: Basophils # 0.1 10^3/uL (0.0-0.1); Basophils % 0.6 %; Eosinophils # 0.6 10^3/uL (0.0-0.8); Eosinophils % 4.3 %; Hematocrit 38.5 % (42.0-52.0); Hemoglobin 11.9 g/dL (11.7-16.6); Lymphocytes # 1.1 10^3/uL (0.8-4.8); Lymphocytes % 7.7 %; Mean Corpuscular HGB Conc 30.9 g/dL (30.0-36.0); Mean Corpuscular Volume 87.3 fl (80-94); Mean Platelet Volume 8.9 fL (7.4-10.4); Monocytes # 1.2 10^3/uL (0.2-0.9); Monocytes % 8.4 %; Neutrophils # 11.52 10^3/uL (1.8-7.7); Neutrophils % 78.3 %; Nucleated Red Blood Cells % 0 %; Platelet Count 387 10^3/cmm (130-400); Red Blood Count 4.41 10^6/uL (4.1-5.3); Red Cell Distribution Width 18.8 % (12.1-15.1); White Blood Count 14.7 10^3/uL (4.0-10.0)
[2022-09-03 02:44] LABS: Estmated Average Glucose 169; Hemoglobin A1C 7.5 % (4.0-6.0)
[2022-09-03 02:49] LABS: Alanine Aminotransferase 21 U/L (0-41); Albumin Level 2.4 g/dL (3.5-5.2); Alkaline Phosphatase 183 U/L (40-130); Anion Gap 13.3 (5-19); Aspartate Amino Transferase 20 U/L (0-40); Blood Urea Nitrogen 19 mg/dL (8-23); Calcium 8.1 mg/dL (8.5-10.5); Carbon Dioxide 23 mmol/L (22-29); Chloride 102 mmol/L (98-107); Chol HDL Ratio 4.77 mg/dL (1.0-5.00); Cholesterol 124 mg/dL (0-200); Globulin 3.7 g/dL (1.3-4.6); Glomerular Filtration Rate 74.3 mL/min (90-130); Glucose 123 mg/dL (65-115); HDL Cholesterol 26 mg/dL (60-100); LDL Cholesterol Calculated 75 mg/dL (50-129); Osmolality Calculated 284 mOsm/kg (285-295); Potassium 3.3 mmol/L (3.5-5.1); Sodium 135 mmol/L (136-145); Total Bilirubin 0.5 mg/dL (0.15-1.2); Total Protein 6.1 g/dL (6.6-8.7); Triglycerides 115 mg/dL (0-150); VLDL Cholestrol Calculation 23 mg/dL (0-30); Vancomycin Trough 26.8 ug/mL (10-15)
--- NOTE | 2022-09-03 02:56 | PC.PHAR ---
Vanc trough dose change Goal Vanc Trough: 15-20 (high trough requested) Vanc trough: 26.8 Current dose: 1250 mg Q12H Plan: Adjust dose to 1250 mg Q18H Vanc trough to be scheduled for prior to 4th dose and will reassess
[2022-09-03 03:08] LABS: Folate Level 12.3 ng/mL (4.5-32.2)
[2022-09-03] MEDS: piperacillin-tazobactam 3.375 GM in sodium chloride 0.9% (plus) 50 ML IV ×3 (06:19→23:34)
[2022-09-03] MEDS: clopidogrel 75 mg Tablet PO (06:20)
[2022-09-03] MEDS: hyDRALAzine 25 mg Tablet PO ×3 (10:31→20:27)
[2022-09-03] MEDS: carvedilol 12.5 mg Tablet PO ×2 (10:31→20:27)
[2022-09-03] MEDS: nicotine 2 mg Gum BUCCAL ×3 (10:31→21:18)
--- NOTE | 2022-09-03 10:48 | P.PN_ITS ---
Subjective Subjective: Pain controlled. Debrided bone now growing VRE Vitals/I&O/Wt Last Vital Signs Temp 97.3 F L 09/04/22 08:00 Pulse 76 09/04/22 08:00 Resp 17 09/04/22 08:00 BP 168/95 09/04/22 08:00 Pulse Ox 98 09/04/22 08:00 O2 Del Method Room Air 09/04/22 08:00 O2 Flow Rate 6 09/01/22 12:44 09/03/22 09/04/22 09/04/22 22:59 06:59 14:59 Intake Total 540 / 2070 290 / 2360 360 / 360 Output Total 2400 / 2400 1100 / 3500 Balance -1860 / -330 -810 / -1140 360 / 360 Physical Exam Narrative: General: No acute distress, awake alert and oriented x3 Wound: Stage IV sacral decubitus ulcer with healthy bleeding base. Same with stage III right ischial tuberosity decubitus ulcer Urinary Catheter Management: Barros: Cath Placed During This Visit: yes Reason for Continuing Indwelling Catheter: Other Urinary Catheter Date of Insertion: 08/30/22 Urinary Catheter Time of Insertion: 19:49 Data 09/03/22 02:03 09/03/22 02:03 Micro: Microbiology 09/01/22 12:00 Gram Stain - Final Buttock Wound Culture - Final Enterococcus faecium vre 09/01/22 12:00 Gram Stain - Final Buttock Wound Culture - Preliminary Enterococcus faecalis Staphylococcus haemolyticus A&P Assessment and plan (1) Sacral decubitus ulcer, stage IV: (2) Right ischial pressure sore, stage 3: (3) Osteomyelitis: Plan Wet-to-dry dressing changes twice daily Antibiotics and medical management per hospitalist Attestations Medical Necessity Statement*: Per primary Coding Level of Care Code Acute Code for [facility] Diagnoses Sacral decubitus ulcer, stage IV L89.154 Right ischial pressure sore, stage 3 L89.313 Osteomyelitis M86.9
--- NOTE | 2022-09-03 14:14 | P.PN_ITS ---
Subjective Subjective: No acute vents overnight. Patient has remained hemodynamically stable and afebrile. Denies any nausea vomiting, headache. Sitting comfortably in bed. Denies any chest pain. Appreciate labs. Leukocytosis trending down. Appreciate CT of pelvis from yesterday. Vitals/I&O/Wt Last Vital Signs Temp 97.8 F 09/03/22 11:40 Pulse 72 09/03/22 11:40 Resp 18 09/03/22 11:40 BP 126/71 09/03/22 11:40 Pulse Ox 94 09/03/22 11:40 O2 Del Method Room Air 09/03/22 11:40 O2 Flow Rate 6 09/01/22 12:44 09/02/22 09/03/22 09/03/22 22:59 06:59 14:59 Intake Total 2200 / 2730 50 / 2780 480 / 480 Output Total 300 / 1300 Balance 2200 / 1730 -250 / 1480 480 / 480 Physical Exam Const: COMMON NORMALS: patient oriented x3 HENMT: COMMON NORMALS: normocephalic and atraumatic HEAD & SCALP: normocephalic and atraumatic Resp: COMMON NORMALS: clear to auscultation bilaterally EFFORT & INSPECTION: Yes symmetric chest movement AUSCULTATION: clear to auscultation bilaterally Cardio: COMMON NORMALS: regular rate, regular rhythm, S1 normal heart sound present, S2 normal heart sound present, No gallops present (Cardio), No murmurs present (Cardio), No rub (Cardio) and Peripheral pulses 2+ throughout RATE: regular rate RHYTHM: regular rhythm HEART SOUNDS: S1 normal heart sound present and S2 normal heart sound present PERIPHERAL PULSES: Peripheral pulses 2+ throughout GI: COMMON NORMALS: Normal to inspection, nondistended, normoactive bowel soun ds present, Soft to palpation, non-tender, No hepatosplenomegaly present and no masses AUSCULTATION: Yes normoactive bowel sounds PALPATION: Yes Soft to palpation and Yes No hepatosplenomegaly present RECTAL EXAM: Yes deferred Extremity: COMMON NORMALS: no clubbing, cyanosis or edema and no pedal edema Neuro: COMMON NORMALS: patient oriented x3 Skin: OTHER: Wound: Stage IV sacral decubitus ulcer with healthy bleeding base.? Same with stage III right ischial tuberosity decubitus ulcer Urinary Catheter Management: Barros: Cath Placed During This Visit: yes Reason for Continuing Indwelling Catheter: Other Urinary Catheter Date of Insertion: 08/30/22 Urinary Catheter Time of Insertion: 19:49 Data 09/03/22 02:03 09/03/22 02:03 Micro: Microbiology 08/30/22 19:57 Urine Culture - Final Urine,Clean Catch Enterobacter cloacae 09/01/22 12:00 Gram Stain - Final Buttock Wound Culture - Preliminary Strep species, gamma-hemolytic 09/01/22 12:00 Gram Stain - Final Buttock Wound Culture - Preliminary 08/30/22 18:07 Wound Culture - Preliminary Buttock A&P Assessment and plan (1) Decubitus ulcer of sacral region, unstageable: (2) Diastolic CHF: (3) HTN (hypertension): (4) Acute kidney injury superimposed on CKD: (5) Coronary artery disease: (6) Sacral decubitus ulcer, stage IV: (7) Osteomyelitis: (8) Multiple sclerosis: Plan 67 year old male with past medical history of hypertension CHF, CKD coronary artery disease s/p stent, multiple sclerosis, neurogenic bladder, came today for worsening decubitus ulcer in the buttock.?It started roughly a month ago and has progressively worsened to where it is draining foul-smelling discharge.?Patient denies fever, nausea or vomiting. Assessment: Decubitus ulcer of sacral region: Post debridement day 2. Appreciate surgical recommendations. Wound cultures growing gamma hemolytic Streptococcus. MRSA swab pending. Blood cultures so far negative. Urine culture growing Enterobacter. Wound care as per surgical team. Patient would most likely need aggressive wound care going forward. For now continue with vancomycin and Zosyn. Zosyn will cover for Enterobacter in the urine and for Streptococcus. Awaiting culture sensitivities before discontinuing vancomycin. 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 Coccyx sent for cultures. Appreciate pelvis CT, ESR and CRP. Follow-up on culture. Continue with IV antibiotics as above. Patient would most likely need IV antibiotics for overall 6 weeks for osteomyelitis. Depending on culture results will plan for IV antibiotics. If blood cultures remain negative in next 24 hours we will plan for PICC line placement. History of hypertension: Blood pressure is elevated. Goal blood pressure less than 140/90 mmHg. Blood pressure is better controlled. Continue with home dose of hydralazine 25 mg 3 times daily and Coreg. Likely progressive CKD versus SUSHILA on CKD: Resolved. Baseline serum creatinine appears to be around 1-1.2. Monitor BMP Avoid nephrotoxic's. Creatinine improving to 1. Monitor intake output charting Continue gentle IV hydration with normal saline Chronic hyponatremia: Stable. Serum sodium more or less appears around baseline. Discharge plan: Patient most likely requires aggressive wound care with long- term IV antibiotics. Discussed with patient regarding possible transfer to SNF. Discussed that he required daily dressing changes are to be difficult to be done at home. Patient continues to refuse placement to SNF for short-term for aggressive wound care. He understands the risk factors of poor wound control at home. Insisting on discharge to home with home health. Case management alerted. DVT prophylaxis: On Lovenox Pepcid for PUD prophylaxis. CODE STATUS: Full code Attestations Medical Necessity Statement*: Requires further hospitalization for management of decubitus ulcer with osteomyelitis of coccyx while outpatient antibiotics are set up. Diagnoses Decubitus ulcer of sacral region, unstageable L89.150 Diastolic CHF I50.30 HTN (hypertension) I10 Acute kidney injury superimposed on CKD N17.9; N18.9 Coronary artery disease I25.10 Sacral decubitus ulcer, stage IV L89.154 Osteomyelitis M86.9 Multiple sclerosis G35
[2022-09-03] MEDS: vancomycin 1,250 MG/250 ML PIGGYBACK 250 MG IV (14:32)
--- NOTE | 2022-09-03 17:15 | PC.NURSE ---
Jose Juan from [place] called culture report for wound on buttocks as VRE. Dr. Pace notified with no response at this time.
[2022-09-03] MEDS: atorvastatin 40 mg Tablet PO (18:07)
[2022-09-03] MEDS: enoxaparin 30 mg/0.3 mL Syringe SUBCUT (18:07)
[2022-09-03] MEDS: sodium chloride 0.9% 1,000 ML 75 ML IV (20:27)
[2022-09-04] VITALS (8 sets, daily range): BP systolic 149–170; BP diastolic 74–95; PULSE 65–93; RESP 17–20; TEMP 36.3–36.7; O2SAT 94–98
[2022-09-04] MEDS: clopidogrel 75 mg Tablet PO (06:15)
[2022-09-04] MEDS: piperacillin-tazobactam 3.375 GM in sodium chloride 0.9% (plus) 50 ML IV (06:15)
--- NOTE | 2022-09-04 10:33 | P.PN_ITS ---
Subjective Subjective: No acute events overnight. Patient has remained hemodynamically stable and afebrile on room air. Denies any nausea, vomiting, headache. Today morning seen while getting dressing changes. Given lab holiday today. Appreciate CT pelvis from few days ago and microculture results. Vitals/I&O/Wt Last Vital Signs Temp 97.3 F L 09/04/22 08:00 Pulse 76 09/04/22 08:00 Resp 17 09/04/22 08:00 BP 168/95 09/04/22 08:00 Pulse Ox 98 09/04/22 08:00 O2 Del Method Room Air 09/04/22 08:00 O2 Flow Rate 6 09/01/22 12:44 09/03/22 09/04/22 09/04/22 22:59 06:59 14:59 Intake Total 540 / 2070 290 / 2360 360 / 360 Output Total 2400 / 2400 1100 / 3500 Balance -1860 / -330 -810 / -1140 360 / 360 Physical Exam Const: COMMON NORMALS: patient oriented x3 HENMT: COMMON NORMALS: normocephalic and atraumatic HEAD & SCALP: normocephalic and atraumatic Resp: COMMON NORMALS: clear to auscultation bilaterally EFFORT & INSPECTION: Yes symmetric chest movement AUSCULTATION: clear to auscultation bilaterally Cardio: COMMON NORMALS: regular rate, regular rhythm, S1 normal heart sound present, S2 normal heart sound present, No gallops present (Cardio), No murmurs present (Cardio), No rub (Cardio) and Peripheral pulses 2+ throughout RATE: regular rate RHYTHM: regular rhythm HEART SOUNDS: S1 normal heart sound present and S2 normal heart sound present PERIPHERAL PULSES: Peripheral pulses 2+ throughout GI: COMMON NORMALS: Normal to inspection, nondistended, normoactive bowel sounds present, Soft to palpation, non-tender, No hepatosplenomegaly present and no masses AUSCULTATION: Yes normoactive bowel sounds PALPATION: Yes Soft to palpation and Yes No hepatosplenomegaly present RECTAL EXAM: Yes deferred Extremity: COMMON NORMALS: no clubbing, cyanosis or edema and no pedal edema Neuro: COMMON NORMALS: patient oriented x3 Skin: OTHER: Wound: Stage IV sacral decubitus ulcer with healthy bleeding base.? Same with stage III right ischial tuberosity decubitus ulcer Urinary Catheter Management: Barros: Cath Placed During This Visit: yes Reason for Continuing Indwelling Catheter: Other Urinary Catheter Date of Insertion: 08/30/22 Urinary Catheter Time of Insertion: 19:49 Data 09/03/22 02:03 09/03/22 02:03 Other Labs: Microbiology 08/30/22 18:07 Buttock Wound Culture - Final Alcaligenes faecalis Pseudo fluorescens/putida 09/01/22 12:00 Buttock Gram Stain - Final 09/01/22 12:00 Buttock Wound Culture - Final Enterococcus faecium vre 09/01/22 12:00 Buttock Gram Stain - Final 09/01/22 12:00 Buttock Wound Culture - Preliminary Enterococcus faecalis Staphylococcus haemolyticus 08/30/22 19:57 Urine,Clean Catch Urine Culture - Final Enterobacter cloacae 08/30/22 19:17 Blood Blood Culture - Preliminary NEGATIVE TO DATE 08/30/22 19:20 Blood Blood Culture - Preliminary NEGATIVE TO DATE Micro: Microbiology 09/01/22 12:00 Gram Stain - Final Buttock Wound Culture - Final Enterococcus faecium vre 09/01/22 12:00 Gram Stain - Final Buttock Wound Culture - Preliminary Enterococcus faecalis Staphylococcus haemolyticus A&P Assessment and plan (1) Decubitus ulcer of sacral region, unstageable: (2) Diastolic CHF: (3) HTN (hypertension): (4) Acute kidney injury superimposed on CKD: (5) Coronary artery disease: (6) Sacral decubitus ulcer, stage IV: (7) Osteomyelitis: (8) Multiple sclerosis: Plan 67 year old male with past medical history of hypertension CHF, CKD coronary artery disease s/p stent, multiple sclerosis, neurogenic bladder, came today for worsening decubitus ulcer in the buttock.?It started roughly a month ago and has progressively worsened to where it is draining foul-smelling discharge.?Patient denies fever, nausea or vomiting. Assessment: Decubitus ulcer of sacral region: Post debridement day 3. Appreciate surgical recommendations. OR wound culture results appreciated. Culture results from the tissue growing Enterococcus faecalis and staph hemolyticus and from the bone growing En terococcus faecium VRE. Superficial wounds growing Pseudomonas. For now empirically switch to daptomycin and ceftriaxone. Blood cultures remain negative will most likely need a PICC line placement for 6 weeks of IV antibiotics. Given limited mobility, patient being bedbound from multiple sclerosis and significant decubital ulcer most likely patient will have mechanical barrier for healing of the ulcer. Continue aggressive wound care. 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 Coccyx sent for cultures. Cultures and antibiotics as above. Patient would most likely need IV antibiotics for overall 6 weeks for osteomyelitis. Depending on culture results will plan for IV antibiotics. If blood cultures remain negative in next 24 hours we will plan for PICC line neil cement. History of hypertension: Blood pressure is elevated. Goal blood pressure less than 140/90 mmHg. Blood pressure is better controlled. Continue with home dose of hydralazine 25 mg 3 times daily and Coreg. Likely progressive CKD versus SUSHILA on CKD: Resolved. Baseline serum creatinine appears to be around 1-1.2. Monitor BMP Avoid nephrotoxic's. Creatinine improving to 1. Monitor intake output charting Continue gentle IV hydration with normal saline Chronic hyponatremia: Stable. Serum sodium more or less appears around baseline. Discharge plan: Patient most likely requires aggressive wound care with long-term IV antibiotics. Discussed with patient regarding possible transfer to SNF. Discussed that he required daily dressing changes are to be difficult to be done at home. Patient continues to refuse placement to SNF for short-term for aggressive wound care. He understands the risk factors of poor wound control at home. Insisting on discharge to home with home health. Case management alerted. Plan discharge home with home health for wound care and IV antibiotics. DVT prophylaxis: On Lovenox Pepcid for PUD prophylaxis. CODE STATUS: Full code Attestations Medical Necessity Statement*: Requires further hospitalization for management of significant decubitus sacral ulcer with osteomyelitis while outpatient antibiotics are set up. Diagnoses Decubitus ulcer of sacral region, unstageable L89.150 Diastolic CHF I50.30 HTN (hypertension) I10 Acute kidney injury superimposed on CKD N17.9; N18.9 Coronary artery disease I25.10 Sacral decubitus ulcer, stage IV L89.154 Osteomyelitis M86.9 Multiple sclerosis G35
--- NOTE | 2022-09-04 10:50 | PM.PN ---
Subjective Subjective: Patient seen and examined. No new complaints Vitals/I&O/Wt Last Vital Signs Temp 97.3 F L 09/04/22 08:00 Pulse 76 09/04/22 08:00 Resp 17 09/04/22 08:00 BP 168/95 09/04/22 08:00 Pulse Ox 98 09/04/22 08:00 O2 Del Method Room Air 09/04/22 08:00 O2 Flow Rate 6 09/01/22 12:44 09/03/22 09/04/22 09/04/22 22:59 06:59 14:59 Intake Total 540 / 2070 290 / 2360 360 / 360 Output Total 2400 / 2400 1100 / 3500 Balance -1860 / -330 -810 / -1140 360 / 360 Physical Exam Narrative: General: No acute distress, awake alert and oriented x3 Wound: Stage IV sacral decubitus ulcer with healthy bleeding base. Same with stage III right ischial tuberosity decubitus ulcer Urinary Catheter Management: Barros: Cath Placed During This Visit: yes Reason for Continuing Indwelling Catheter: Other Urinary Catheter Date of Insertion: 08/30/22 Urinary Catheter Time of Insertion: 19:49 Data 09/03/22 02:03 09/03/22 02:03 Micro: Microbiology 09/01/22 12:00 Gram Stain - Final Buttock Wound Culture - Final Enterococcus faecium vre 09/01/22 12:00 Gram Stain - Final Buttock Wound Culture - Preliminary Enterococcus faecalis Staphylococcus haemolyticus A&P Assessment and plan (1) Sacral decubitus ulcer, stage IV: (2) Right ischial pressure sore, stage 3: (3) Osteomyelitis: Plan Wet-to-dry dressing changes twice daily Antibiotics and medical management per hospitalist Attestations Medical Necessity Statement*: Per primary Coding Level of Care Code Acute Code for [facility] Diagnoses Sacral decubitus ulcer, stage IV L89.154 Right ischial pressure sore, stage 3 L89.313 Osteomyelitis M86.9
[2022-09-04] MEDS: vancomycin 1,250 MG/250 ML PIGGYBACK 250 MG IV (11:02)
[2022-09-04] MEDS: hyDRALAzine 25 mg Tablet PO ×3 (11:02→20:11)
[2022-09-04] MEDS: sodium chloride 0.9% 1,000 ML 75 ML IV (11:02)
[2022-09-04] MEDS: carvedilol 12.5 mg Tablet PO ×2 (11:02→20:02)
--- NOTE | 2022-09-04 13:14 | PC.SOCIAL ---
IMM Updated Updated pt on IMM. No questions voiced. Provided pt a copy. Initialed, dated, & timed copy in chart.
[2022-09-04] MEDS: acetaminophen 325 mg Tablet 650 MG PO (13:16)
[2022-09-04] MEDS: nicotine 2 mg Gum BUCCAL ×3 (13:16→20:02)
[2022-09-04] MEDS: SODIUM CHLORIDE 0.9% IV (16:14)
[2022-09-04] MEDS: DAPTOMYCIN IV (16:14)
[2022-09-04] MEDS: atorvastatin 40 mg Tablet PO (18:15)
[2022-09-04] MEDS: cefTRIAXone 1,000 MG in sodium chloride 0.9% (plus) 50 ML 100 MG IV (20:01)
[2022-09-04] MEDS: enoxaparin 40 mg/0.4 mL Syringe SUBCUT (20:02)
[2022-09-05] VITALS (9 sets, daily range): BP systolic 111–166; BP diastolic 68–85; PULSE 66–85; RESP 16–21; TEMP 36.3–36.7; O2SAT 92–98
[2022-09-05 04:40] LABS: Basophils # 0.2 10^3/uL (0.0-0.1); Eosinophils # 0.7 10^3/uL (0.0-0.8); Eosinophils % 4.6 %; Hematocrit 37.2 % (42.0-52.0); Hemoglobin 11.7 g/dL (11.7-16.6); Lymphocytes # 1.7 10^3/uL (0.8-4.8); Lymphocytes % 11.3 %; Mean Corpuscular HGB Conc 31.5 g/dL (30.0-36.0); Mean Corpuscular Hemoglobin 26.5 pg (28.0-34.0); Mean Corpuscular Volume 84.2 fl (80-94); Mean Platelet Volume 9.2 fL (7.4-10.4); Monocytes # 1.3 10^3/uL (0.2-0.9); Monocytes % 8.5 %; Neutrophils # 11.04 10^3/uL (1.8-7.7); Neutrophils % 73.9 %; Nucleated Red Blood Cells % 0 %; Platelet Count 402 10^3/cmm (130-400); Red Blood Count 4.42 10^6/uL (4.1-5.3); Red Cell Distribution Width 18.6 % (12.1-15.1)
[2022-09-05 04:59] LABS: Alanine Aminotransferase 16 U/L (0-41); Albumin Level 2.3 g/dL (3.5-5.2); Alkaline Phosphatase 148 U/L (40-130); Anion Gap 14.1 (5-19); Aspartate Amino Transferase 14 U/L (0-40); Blood Urea Nitrogen 12 mg/dL (8-23); Calcium 8.4 mg/dL (8.5-10.5); Carbon Dioxide 23 mmol/L (22-29); Chloride 102 mmol/L (98-107); Globulin 3.8 g/dL (1.3-4.6); Glomerular Filtration Rate 83.9 mL/min (90-130); Glucose 120 mg/dL (65-115); Osmolality Calculated 283 mOsm/kg (285-295); Potassium 3.1 mmol/L (3.5-5.1); Sodium 136 mmol/L (136-145); Total Bilirubin 0.3 mg/dL (0.15-1.2); Total Protein 6.1 g/dL (6.6-8.7)
[2022-09-05] MEDS: nicotine 2 mg Gum BUCCAL ×5 (06:21→20:24)
[2022-09-05] MEDS: clopidogrel 75 mg Tablet PO (06:21)
--- NOTE | 2022-09-05 10:18 | P.PN_ITS ---
Subjective Subjective: Patient seen for wound care. No new events. Vitals/I&O/Wt Last Vital Signs Temp 97.8 F 09/05/22 08:00 Pulse 85 09/05/22 08:00 Resp 18 09/05/22 08:00 BP 114/71 09/05/22 08:00 Pulse Ox 93 09/05/22 08:00 O2 Del Method Room Air 09/05/22 08:00 O2 Flow Rate 6 09/01/22 12:44 09/04/22 09/05/22 09/05/22 22:59 06:59 14:59 Intake Total 390 / 2350 1660 / 1660 Output Total 800 / 2100 750 / 2850 400 / 400 Balance -410 / 250 -750 / -500 1260 / 1260 Physical Exam Const: COMMON NORMALS: no acute distress and alert Neuro: SENSORIUM/ORIENTATION: Yes alert Skin: NARRATIVE SKIN EXAM: Large stage IV sacral ulcer with granulating base. Small amount of slough at superior margin. Right ischial ulcer with granulation throughout. Urinary Catheter Management: Barros: Cath Placed During This Visit: yes Reason for Continuing Indwelling Catheter: Other Urinary Catheter Date of Insertion: 08/30/22 Urinary Catheter Time of Insertion: 19:49 Data 09/05/22 04:17 09/05/22 04:17 Micro: Microbiology 08/30/22 19:17 Blood Culture - Final Blood NO GROWTH AFTER 5 DAYS 08/30/22 19:20 Blood Culture - Final Blood NO GROWTH AFTER 5 DAYS 08/30/22 18:07 Wound Culture - Final Buttock Alcaligenes faecalis Pseudo fluorescens/putida A&P Assessment and plan (1) Sacral decubitus ulcer, stage IV: (2) Right ischial pressure sore, stage 3: Plan Postoperative day 4 s/p debridement of decubitus ulcers with osteomyelitis. Continue local wound care. Will monitor upper portion of sacral wound. May need further operative debridement. Attestations Medical Necessity Statement*: Per hospitalist. Coding Level of Care Code Acute Code for [facility] Diagnoses Sacral decubitus ulcer, stage IV L89.154 Right ischial pressure sore, stage 3 L89.313
[2022-09-05] MEDS: carvedilol 12.5 mg Tablet PO ×2 (10:31→20:24)
[2022-09-05] MEDS: hyDRALAzine 25 mg Tablet PO ×3 (10:32→20:24)
--- NOTE | 2022-09-05 11:16 | XR_ITS ---
WS: [id number] Exam: XR chest 1V portable [id number] Date/Time of Exam: 09/05/2022 11:16 AM Reason For Exam: Post PICC placement Comparison 07/10/2022. Limited AP chest x-ray for PICC line placement is submitted for evaluation. A right-sided PICC line i s noted and probably ends near the cavoatrial junction. The lungs are clear as visualized. The lower left chest is out of the [id number]. The heart is enlarged but unchanged in size. Increased pulmon reina vascularity. Bony structures are intact. The mediastinum is normal in contour. XR/XR chest 1V portable [id number] IMPRESSION: 1. Right-sided PICC line probably ending near the cavoatrial junction. 2. Cardiac enlargement with increased pulmonary vascularity. 3. The lower left chest is out of the [id number].
[2022-09-05] MEDS: levoFLOXacin 750 mg Tablet PO (12:45)
--- NOTE | 2022-09-05 12:49 | PC.NURSE ---
Single lumen PICC placed to right basilic vein without difficulty. Informed consent obtained from patient prior to insertion. Assessment showed 5 mm basilic vein, appearing straight and best choice for placement. Mid-arm circumference measured 10 cm from right AC 29 cm. Trimmed cath length 43 cm with 1 cm external length noted. CXR shows cath tip in cavoatrial junction, in good position for use. Statlock, Biopatch and TSM placed to secure line. Report given to Jeremie, bedside nurse.
[2022-09-05 13:14] LABS: Methicillin-Resist S.aureu PCR NOT DETECTED (NOT DETECTED)
--- NOTE | 2022-09-05 13:53 | PM.PN ---
Subjective Subjective: No acute events overnight. Patient has been afebrile. Lab work appreciated, slight improvement in leukocytosis, stable hemoglobin, potassium 3.1 today which is being repleted. Today morning during examination patient is slightly upset as his son has declined to do wound care at home and now he would have to consider skilled nursing. Discussed safe discharge planning in detail with the patient again and he is agreeable for SNF for now. Vitals/I&O/Wt Last Vital Signs Temp 97.8 F 09/05/22 08:00 Pulse 85 09/05/22 08:00 Resp 18 09/05/22 08:00 BP 114/71 09/05/22 08:00 Pulse Ox 93 09/05/22 08:00 O2 Del Method Room Air 09/05/22 08:00 O2 Flow Rate 6 09/01/22 12:44 09/04/22 09/05/22 09/05/22 22:59 06:59 14:59 Intake Total 390 / 2350 1660 / 1660 Output Total 800 / 2100 750 / 2850 400 / 400 Balance -410 / 250 -750 / -500 1260 / 1260 Physical Exam Const: COMMON NORMALS: patient oriented x3 HENMT: COMMON NORMALS: normocephalic and atraumatic HEAD & SCALP: normocephalic and atraumatic Resp: COMMON NORMALS: clear to auscultation bilaterally EFFORT & INSPECTION: Yes symmetric chest movement AUSCULTATION: clear to auscultation bilaterally Cardio: COMMON NORMALS: regular rate, regular rhythm, S1 normal heart sound present, S2 normal heart sound present, No gallops present (Cardio), No murmurs present (Cardio), No rub (Cardio) and Peripheral pulses 2+ throughout RATE: regular rate RHYTHM: regular rhythm HEART SOUNDS: S1 normal heart sound present and S2 normal heart sound present PERIPHERAL PULSES: Peripheral pulses 2+ throughout GI: COMMON NORMALS: Normal to inspection, nondistended, normoactive bowel sounds present, Soft to palpation, non-tender, No hepatosplenomegaly present and no masses AUSCULTATION: Yes normoactive bowel sounds PALPATION: Yes Soft to palpation and Yes No hepatosplenomegaly present RECTAL EXAM: Yes deferred Extremity: COMMON NORMALS: no clubbing, cyanosis or edema and no pedal edema Neuro: COMMON NORMALS: patient oriented x3 Skin: OTHER: Wound: Stage IV sacral decubitus ulcer with healthy bleeding base.? Same with stage III right ischial tuberosity decubitus ulcer Urinary Catheter Management: Barros: Cath Placed During This Visit: yes Reason for Continuing Indwelling Catheter: Other Urinary Catheter Date of Insertion: 08/30/22 Urinary Catheter Time of Insertion: 19:49 Data 09/05/22 04:17 09/05/22 04:17 Micro: Microbiology 09/01/22 12:00 Gram Stain - Final Buttock Wound Culture - Final Enterococcus faecium vre 09/01/22 12:00 Gram Stain - Final Buttock Wound Culture - Final Enterococcus faecalis Staphylococcus haemolyticus Alcaligenes faecalis 08/30/22 19:17 Blood Culture - Final Blood NO GROWTH AFTER 5 DAYS 08/30/22 19:20 Blood Culture - Final Blood NO GROWTH AFTER 5 DAYS 08/30/22 18:07 Wound Culture - Final Buttock Alcaligenes faecalis Pseudo fluorescens/putida A&P Assessment and plan (1) Decubitus ulcer of sacral region, unstageable: (2) Diastolic CHF: (3) HTN (hypertension): (4) Acute kidney injury superimposed on CKD: (5) Coronary artery disease: (6) Sacral decubitus ulcer, stage IV: (7) Osteomyelitis: (8) Multiple sclerosis: Plan 67 year old male with past medical history of hypertension CHF, CKD coronary artery disease s/p stent, multiple sclerosis, neurogenic bladder, came today for worsening decubitus ulcer in the buttock.?It started roughly a month ago and has progressively worsened to where it is draining foul-smelling discharge.?Patient denies fever, nausea or vomiting. Assessment: Decubitus ulcer of sacral region: Post debridement day 4. Appreciate surgical recommendations. OR wound culture results appreciated. Culture results from the tissue growing Enterococcus faecalis and staph hemolyticus and from the bone growing Enterococcus faecium VRE. Appreciate sensitivities. Appreciate ID recommendations. Switch to IV daptomycin 8 mg/kg body weight daily. Start on oral Levaquin 750 mg daily. PICC line placement for IV antibiotic course for next 6 weeks. Patient would need aggressive wound care. Will give referral for wound care as an outpatient. Given limited mobility, patient being bedbound from multiple sclerosis and significant decubital ulcer most likely patient will have mechanical barrier for healing of the ulcer. 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 Coccyx sent for cultures. Cultures and antibiotics as above. Patient would most likely need IV antibiotics for overall 6 weeks for osteomyelitis. Depending on culture results will plan for IV antibiotics. If blood cultures remain negative in next 24 hours we will plan for PICC line placement. History of hypertension: Blood pressure is elevated. Goal blood pressure less than 140/90 mmHg. Blood pressure is better controlled. Continue with home dose of hydralazine 25 mg 3 times daily and Coreg. Likely progressive CKD versus SUSHILA on CKD: Resolved. Baseline serum creatinine appears to be around 1-1.2. Monitor BMP Avoid nephrotoxic's. Creatinine improving to 1. Monitor intake output charting Continue gentle IV hydration with normal saline Replete 80 mg of oral potassium. Chronic hyponatremia: Stable. Serum sodium more or less appears around baseline. Discharge plan: Patient initially declined going to SNF and wanted to continue wound care at home with help of his son. Son later declined to do wound care at home. Patient is agreeable for SNF now. Case management informed. DVT prophylaxis: On Lovenox Pepcid for PUD prophylaxis. CODE STATUS: Full code Attestations Medical Necessity Statement*: Requires further hospitalization for management of VRE Enterococcus decubitus ulcer and coccyx osteomyelitis while outpatient antibiotics and safe discharge planning is sought. Diagnoses Decubitus ulcer of sacral region, unstageable L89.150 Diastolic CHF I50.30 HTN (hypertension) I10 Acute kidney injury superimposed on CKD N17.9; N18.9 Coronary artery disease I25.10 Sacral decubitus ulcer, stage IV L89.154 Osteomyelitis M86.9 Multiple sclerosis G35
[2022-09-05] MEDS: potassium chloride ER 20 mEq Tablet 80 MEQ PO (16:10)
[2022-09-05] MEDS: atorvastatin 40 mg Tablet PO (17:00)
[2022-09-05] MEDS: enoxaparin 40 mg/0.4 mL Syringe SUBCUT (20:24)
[2022-09-05] MEDS: nicotine 14 mg Patch 1 PATCH TRANSDERMA (20:24)
[2022-09-06 04:00] VITALS: BP 128/65; PULSE 75; RESP 19; TEMP 36.3; O2SAT 95
[2022-09-06 05:04] LABS: Basophils # 0.1 10^3/uL (0.0-0.1); Basophils % 0.9 %; Eosinophils # 0.6 10^3/uL (0.0-0.8); Hematocrit 37.5 % (42.0-52.0); Hemoglobin 11.6 g/dL (11.7-16.6); Lymphocytes # 1.6 10^3/uL (0.8-4.8); Lymphocytes % 11.1 %; Mean Corpuscular HGB Conc 30.9 g/dL (30.0-36.0); Mean Corpuscular Hemoglobin 26.5 pg (28.0-34.0); Mean Corpuscular Volume 85.8 fl (80-94); Mean Platelet Volume 9.4 fL (7.4-10.4); Monocytes # 1.2 10^3/uL (0.2-0.9); Monocytes % 8.9 %; Neutrophils # 10.37 10^3/uL (1.8-7.7); Nucleated Red Blood Cells % 0 %; Platelet Count 524 10^3/cmm (130-400); Red Blood Count 4.37 10^6/uL (4.1-5.3); Red Cell Distribution Width 18.7 % (12.1-15.1)
[2022-09-06] MEDS: levoFLOXacin 750 mg Tablet PO (05:40)
[2022-09-06] MEDS: clopidogrel 75 mg Tablet PO (05:40)
[2022-09-06] MEDS: nicotine 2 mg Gum BUCCAL (05:41)
[2022-09-06 06:00] VITALS: PULSE 67
[2022-09-06 06:33] LABS: Alanine Aminotransferase 16 U/L (0-41); Albumin Level 2.4 g/dL (3.5-5.2); Alkaline Phosphatase 146 U/L (40-130); Anion Gap 13.9 (5-19); Aspartate Amino Transferase 15 U/L (0-40); Blood Urea Nitrogen 10 mg/dL (8-23); Calcium 8.2 mg/dL (8.5-10.5); Carbon Dioxide 23 mmol/L (22-29); Chloride 103 mmol/L (98-107); Globulin 3.7 g/dL (1.3-4.6); Glomerular Filtration Rate 96.1 mL/min (90-130); Glucose 126 mg/dL (65-115); Osmolality Calculated 283 mOsm/kg (285-295); Potassium 3.9 mmol/L (3.5-5.1); Sodium 136 mmol/L (136-145); Total Bilirubin 0.4 mg/dL (0.15-1.2); Total Protein 6.1 g/dL (6.6-8.7)
[2022-09-06 08:00] VITALS: BP 145/87; PULSE 74; RESP 18; TEMP 36.3; O2SAT 98
--- NOTE | 2022-09-06 09:28 | PM.DCS ---
Discharge Providers Date of Admission: 08/30/22 18:53 Date of Discharge: September 06, 2022 Attending Provider at Admission: Kamlesh Daniels MD Attending Provider at Discharge: Fernando Pace MD Consults: Surgery: Dr. Shetty Primary Care Provider: Kylie Vogel Diagnoses at Discharge Discharge Diagnosis (1) Decubitus ulcer of sacral region, unstageable: Status: Acute (2) Diastolic CHF: Status: Acute (3) HTN (hypertension): Status: Acute (4) Acute kidney injury superimposed on CKD: Status: Acute (5) Coronary artery disease: Status: Acute (6) Sacral decubitus ulcer, stage IV: Status: Acute (7) Osteomyelitis: Status: Acute (8) Multiple sclerosis: Status: Acute Reason for Visit Reason for Visit: infected wound Brief History: History as per HPI: Armando Coleman is a 67 year old male with past medical history of hypertension CHF, CKD coronary artery disease s/p stent, multiple sclerosis, neurogenic bladder, came today for worsening decubitus ulcer in the buttock.?It started roughly a month ago and has progressively worsened to where it is draining foul-smelling discharge.?Patient denies fever, nausea or vomiting. Pertinent labs includes: WBC 22.5, H&H 12/38, PLT : 393 , serum sodium 131, serum potassium 3.7, BUN 48, creatinine 1.7, urinalysis dirty. Hospital Course Hospital Course Patient was admitted to the hospital further evaluation and management of worsening decubitus ulcer at sacral region along with SUSHILA on CKD and worsening hyponatremia. He was started on IV hydration. Surgery was consulted and he underwent debridement of the ulcer on 09/01. He was found to have stage IV decubitus ulcer and stage III right ischial tuberosity ulcer. During the OR he was also thought to have osteomyelitis of coccyx which was confirmed with CT pelvis. During hospitalization his blood cultures remain negative though wound cultures were positive for Enterococcus faecalis VRE, Enterococcus fecium and Staphylococcus. Given resistant bacteria ID was consulted to help with culture guided IV antibiotics. Unfortunately given limited mobility, patient being bedbound from multiple sclerosis and significant decubital ulcer most likely patient will have mechanical barrier for healing of the ulcer. Patient would most likely need 6 weeks of IV antibiotics for assistance in healing of the ulcer for which PICC line was placed. Started on IV daptomycin. Safe discharge plan was discussed in detail with the patient given need for extensive wound care, IV antibiotics he was advised to transfer to SNF. Patient reluctantly agreed. He has been discharged in hemodynamically stable condition to SNF. Physical Exam Const: COMMON NORMALS: patient oriented x3 HENMT: COMMON NORMALS: normocephalic and atraumatic HEAD & SCALP: normocephalic and atraumatic Resp: COMMON NORMALS: clear to auscultation bilaterally EFFORT & INSPECTION: Yes symmetric chest movement AUSCULTATION: clear to auscultation bilaterally Cardio: COMMON NORMALS: regular rate, regular rhythm, S1 normal heart sound present, S2 normal heart sound present, No gallops present (Cardio), No murmurs present (Cardio), No rub (Cardio) and Peripheral pulses 2+ throughout RATE: regular rate RHYTHM: regular rhythm HEART SOUNDS: S1 normal heart sound present and S2 normal heart sound present PERIPHERAL PULSES: Peripheral pulses 2+ throughout GI: COMMON NORMALS: Normal to inspection, nondistended, normoactive bowel sounds present, Soft to palpation, non-tender, No hepatosplenomegaly present and no masses AUSCULTATION: Yes normoactive bowel sounds PALPATION: Yes Soft to palpation and Yes No hepatosplenomegaly present RECTAL EXAM: Yes deferred Extremity: COMMON NORMALS: no clubbing, cyanosis or edema and no pedal edema Neuro: COMMON NORMALS: patient oriented x3 Skin: OTHER: Wound: Stage IV sacral decubitus ulcer with healthy bleeding base.? Same with stage III right ischial tuberosity decubitus ulcer Urinary Catheter Management: Barros: Cath Placed During This Visit: yes Reason for Continuing Indwelling Catheter: Assist healing open wound Urinary Catheter Date of Insertion: 08/30/22 Urinary Catheter Time of Insertion: 19:49 Discharge Data Studies Completed and Pending Completed Studies During Hospitalization Category Date Time Status CT abdomen pelvis wo con [id number] Routine Cat Scan 09/02/22 16:59 Completed CXRP [XR chest 1V portable [id number]] Routine Exams 09/05/22 11:16 Completed Radiology Impressions Abdomen/Pelvis CT 09/02/22 16:59 IMPRESSION: Sacral decubitus ulcer extending to the bone at the tip of the coccyx with osteomyelitis likely at this location. Otherwise, no apparent areas of osteomyelitis elsewhere. Chest X-Ray 09/05/22 11:16 IMPRESSION: 1. Right-sided PICC line probably ending near the cavoatrial junction. 2. Cardiac enlargement with increased pulmonary vascularity. 3. The lower left chest is out of the [id number]. Microbiology 09/01/22 12:00 Buttock Gram Stain - Final 09/01/22 12:00 Buttock Wound Culture - Final Enterococcus faecium vre 09/01/22 12:00 Buttock Gram Stain - Final 09/01/22 12:00 Buttock Wound Culture - Final Enterococcus faecalis Staphylococcus haemolyticus Alcaligenes faecalis 08/30/22 19:17 Blood Blood Culture - Final NO GROWTH AFTER 5 DAYS 08/30/22 19:20 Blood Blood Culture - Final NO GROWTH AFTER 5 DAYS 08/30/22 18:07 Buttock Wound Culture - Final Alcaligenes faecalis Pseudo fluorescens/putida 08/30/22 19:57 Urine,Clean Catch Urine Culture - Final Enterobacter cloacae Laboratory Results WBC 14.0 10^3/uL (4.0-10.0) H 09/06/22 04:46 RBC 4.37 10^6/uL (4.1-5.3) 09/06/22 04:46 Hgb 11.6 g/dL (11.7-16.6) L 09/06/22 04:46 Hct 37.5 % (42.0-52.0) L 09/06/22 04:46 MCV 85.8 fl (80-94) 09/06/22 04:46 MCH 26.5 pg (28.0-34.0) L 09/06/22 04:46 MCHC 30.9 g/dL (30.0-36.0) 09/06/22 04:46 RDW 18.7 % (12.1-15.1) H 09/06/22 04:46 Plt Count 524 10^3/cmm (130-400) H D 09/06/22 04:46 MPV 9.4 fL (7.4-10.4) 09/06/22 04:46 Neut % (Auto) 74.0 % 09/06/22 04:46 Lymph % (Auto) 11.1 % 09/06/22 04:46 [place] % (Auto) 8.9 % 09/06/22 04:46 Eos % (Auto) 4.0 % 09/06/22 04:46 Baso % (Auto) 0.9 % 09/06/22 04:46 Neut # (Auto) 10.37 10^3/uL (1.8-7.7) H 09/06/22 04:46 Lymph # (Auto) 1.6 10^3/uL (0.8-4.8) 09/06/22 04:46 [place] # (Auto) 1.2 10^3/uL (0.2-0.9) H 09/06/22 04:46 Eos # (Auto) 0.6 10^3/uL (0.0-0.8) 09/06/22 04:46 Baso # (Auto) 0.1 10^3/uL (0.0-0.1) 09/06/22 04:46 Nucleated RBC % (auto) 0 % 09/06/22 04:46 Nucleated RBCs # 0.0 /100WBC 09/06/22 04:46 ESR 93 mm/hr (0-10) H 09/02/22 04:46 Sodium 136 mmol/L (136-145) 09/06/22 06:05 Potassium 3.9 mmol/L (3.5-5.1) 09/06/22 06:05 Chloride 103 mmol/L (98-107) 09/06/22 06:05 Carbon Dioxide 23 mmol/L (22-29) 09/06/22 06:05 Anion Gap 13.9 (5-19) 09/06/22 06:05 BUN 10 mg/dL (8-23) 09/06/22 06:05 Creatinine 0.8 mg/dL (0.7-1.2) 09/06/22 06:05 GFR Calculation 96.1 mL/min (90-130) 09/06/22 06:05 Glucose 126 mg/dL (65-115) H 09/06/22 06:05 Estimat Average Glucose 169 09/03/22 02:03 Hemoglobin A1c 7.5 % (4.0-6.0) H 09/03/22 02:03 Calculated Osmolality 283 mOsm/kg (285-295) L 09/06/22 06:05 Lactic Acid 1.5 mmol/L (0.5-2.2) 08/31/22 04:39 Calcium 8.2 mg/dL (8.5-10.5) L 09/06/22 06:05 Iron 64 ug/dL (59-158) 09/02/22 14:20 TIBC 151 mcg/dl 09/02/22 14:20 % Saturation 42.3 % (20-50) 09/02/22 14:20 Unsat Iron Binding 87 ug/dL (112-347) L 09/02/22 14:20 Total Bilirubin 0.4 mg/dL (0.15-1.2) 09/06/22 06:05 AST 15 U/L (0-40) 09/06/22 06:05 ALT 16 U/L (0-41) 09/06/22 06:05 Alkaline Phosphatase 146 U/L (40-130) H 09/06/22 06:05 C-Reactive Protein 93.4 mg/L (0.0-4.9) H 09/02/22 14:20 Total Protein 6.1 g/dL (6.6-8.7) L 09/06/22 06:05 Albumin 2.4 g/dL (3.5-5.2) L 09/06/22 06:05 Globulin 3.7 g/dL (1.3-4.6) 09/06/22 06:05 Triglycerides 115 mg/dL (0-150) 09/03/22 02:03 Cholesterol 124 mg/dL (0-200) 09/03/22 02:03 LDL Cholesterol, Calc 75 mg/dL (50-129) 09/03/22 02:03 Total VLDL Cholesterol 23 mg/dL (0-30) 09/03/22 02:03 HDL Cholesterol 26 mg/dL (60-100) L 09/03/22 02:03 Cholesterol/HDL Ratio 4.77 mg/dL (1.0-5.00) 09/03/22 02:03 Vitamin B12 541 pg/mL (232-1245) 09/02/22 14:20 Folate 12.3 ng/mL (4.5-32.2) 09/03/22 02:03 Procalcitonin 0.20 ng/mL (0-0.5) 09/02/22 14:20 TSH 0.52 uIU/mL (0.27-4.20) 09/02/22 14:20 Urine Color Yellow (Yellow) 08/30/22 19:57 Urine Appearance Hazy (CLEAR) A 08/30/22 19:57 Urine pH 5 (5-7) 08/30/22 19:57 Ur Specific [place] 1.020 (1.005-1.030) 08/30/22 19:57 Urine Protein 1+ (Negative) H 08/30/22 19:57 Urine Glucose (UA) Norm (Normal) 08/30/22 19:57 Urine Ketones 1+ (Negative) H 08/30/22 19:57 Urine Blood 2+ (Negative) H 08/30/22 19:57 Urine Nitrate Positive (Negative) H 08/30/22 19:57 Urine Bilirubin 1+ (Negative) H 08/30/22 19:57 Urine Urobilinogen 4 mg/dL (Negative) H 08/30/22 19:57 Ur Leukocyte Esterase 2+ (Negative) H 08/30/22 19:57 Urine RBC 0-4 /hpf (0-2) H 08/30/22 19:57 Urine WBC 25-40 /hpf (0-5) H 08/30/22 19:57 Ur Squamous Epith Cells 5-10 /hpf (0-5) H 08/30/22 19:57 Amorphous Sediment Not Reportable 08/30/22 19:57 Urine Bacteria 2+ /hpf (NONE) H 08/30/22 19:57 Vancomycin Trough 26.8 ug/mL (10-15) H* 09/03/22 02:03 MRSA (PCR) Not detected (NOT DETECTED) 09/02/22 18:40 Vitals Last Vital Signs Temp 97.4 F L 09/06/22 08:00 Pulse 74 09/06/22 08:00 Resp 18 09/06/22 08:00 BP 145/87 09/06/22 08:00 Pulse Ox 98 09/06/22 08:00 O2 Del Method Room Air 09/06/22 08:00 O2 Flow Rate 6 09/01/22 12:44 Discharge Plan Discharge Patient Disposition: Xfer SNF Condition: Stable Prescriptions: New bisacodyl 5 mg Tablet,Delayed Release (Dr/Ec) 10 mg PO DAILY PRN (Reason: Constipation (see protocol)) Qty: 30 0RF levofloxacin 750 mg Tablet 750 mg PO DAILY@0600 42 Days Qty: 42 0RF Continued nitroglycerin 0.4 mg tablet, sublingual 0.4 mg SUBLINGUAL Q5M PRN (Reason: chest pain) Qty: 30 4RF Rx Instructions: until response; do not exceed 3 doses per episode potassium chloride 20 mEq tablet,ER particles/crystals 20 meq PO DAILY furosemide 40 mg tablet 40 mg PO DAILY 30 Days Qty: 30 0RF atorvastatin 40 mg tablet 40 mg PO QPM carvedilol 6.25 mg Tablet 12.5 mg PO BID@0900,2100 Qty: 180 0RF clopidogrel 75 mg tablet 75 mg PO QAM Qty: 90 0RF Changed hydralazine 25 mg tablet 25 mg PO TID Qty: 90 2RF Discharge Orders: Discharge Order (Routine); Ordered 09/06/22 Ordered By: Fernando Pace Referrals: [facility] [Outside] Kylie Vogel [Primary Care Provider] - 09/09/22 10:20 am (with Eva Acevedo) [facility] [Staff Physician] - 09/10/22 8:00 am Discharge Activity: Resume usual activity and Increase activity as tolerated Patient Instructions: Opioid Safety, Pain Management Activity Restrictions/Additional Instructions: Dose of hydralazine has been changed to 25 mg 3 times daily. Take Levaquin 750 mg daily for next 6 weeks. You will also be on daptomycin 8 mg/kg body weight IV daily for next 6 weeks. While you are on antibiotics he should have repeat CBC and CMP weekly. You are being discharged with Barros catheter in place. If Barros catheter remains in place for more than 1 month it should be replaced. Continue aggressive wound care. Follow-up with wound care clinic onsite appointment. Discharge Attestations Time Spent in Discharge Care*: greater than 30 min Specific Discharge Activities: educating patient, educating and/or supporting family/caregiver, discussing with pcp/other providers, discussing with family preservation caseworker/social workers/dc planners, documenting/other paperwork and evaluating patient/reviewing data Quality Metrics Clinical Quality Measures [ No reported AMI, CVA or VTE this stay] Coding Level of Care Code 63620 Total time (in minutes) for Discharge: 60 Diagnoses Decubitus ulcer of sacral region, unstageable L89.150 Diastolic CHF I50.30 HTN (hypertension) I10 Acute kidney injury superimposed on CKD N17.9; N18.9 Coronary artery disease I25.10 Sacral decubitus ulcer, stage IV L89.154 Osteomyelitis M86.9 Multiple sclerosis G35
--- NOTE | 2022-09-06 09:34 | PM.PN ---
Subjective Subjective: No new events. Tolerating dressing changes. Vitals/I&O/Wt Last Vital Signs Temp 97.4 F L 09/06/22 08:00 Pulse 74 09/06/22 08:00 Resp 18 09/06/22 08:00 BP 145/87 09/06/22 08:00 Pulse Ox 98 09/06/22 08:00 O2 Del Method Room Air 09/06/22 08:00 O2 Flow Rate 6 09/01/22 12:44 09/05/22 09/06/22 09/06/22 22:59 06:59 14:59 Intake Total 100 / 2000 480 / 480 Output Total 900 / 1300 350 / 1650 Balance -800 / 700 -350 / 350 480 / 480 Physical Exam Const: COMMON NORMALS: no acute distress and alert Neuro: SENSORIUM/ORIENTATION: Yes alert Skin: NARRATIVE SKIN EXAM: Sacral ulcer clean, decreased amount of slough superiorly. Right ischial ulcer clean and granulating. Urinary Catheter Management: Barros: Cath Placed During This Visit: yes Reason for Continuing Indwelling Catheter: Assist healing open wound Urinary Catheter Date of Insertion: 08/30/22 Urinary Catheter Time of Insertion: 19:49 Data 09/06/22 04:46 09/06/22 06:05 Micro: Microbiology 09/01/22 12:00 Gram Stain - Final Buttock Wound Culture - Final Enterococcus faecium vre 09/01/22 12:00 Gram Stain - Final Buttock Wound Culture - Final Enterococcus faecalis Staphylococcus haemolyticus Alcaligenes faecalis A&P Assessment and plan (1) Sacral decubitus ulcer, stage IV: (2) Right ischial pressure sore, stage 3: Plan Continue local wound care. No further operative debridement at this time. Will ultimately need flap coverage. Attestations Medical Necessity Statement*: Per admitting physician. Coding Level of Care Code Acute Code for [facility] Diagnoses Sacral decubitus ulcer, stage IV L89.154 Right ischial pressure sore, stage 3 L89.313
[2022-09-06] MEDS: carvedilol 12.5 mg Tablet PO (10:42)
[2022-09-06] MEDS: hyDRALAzine 25 mg Tablet PO (10:42)
--- NOTE | 2022-09-06 11:36 | PC.SOCIAL ---
Imm update Imm updated with patient at bedside. Copy of page 2 provided. Patient verbalized understanding. Copy in chart initialed, dated and timed.
[2022-09-06 12:00] VITALS: BP 115/71; PULSE 71; RESP 18; TEMP 36.6; O2SAT 94
--- NOTE | 2022-09-06 12:16 | P.CONIM_ITS ---
Providers/Reason For Consult Consulting Physician/Specialty*: Anette Jones MD / infectious disease Reason for Consult*: VRE osteomyelitis Requesting Physician: Culver MD Attending Physician: Fernando Pace MD Primary Care Provider: Kylie Vogel History of Present Illness History of Present Illness Armando Coleman is a 67 year old male s a 67 year old male with past medical history of hypertension CHF, CKD coronary artery disease s/p stent, multiple sclerosis, neurogenic bladder, ?admitted to the hospital further evaluation and management of worsening decubitus ulcer at sacral region along with SUSHILA on CKD and worsening hyponatremia. he underwent debridement of the ulcer on 09/01.? He was found to have stage IV decubitus ulcer and stage III right ischial tuberosity ulcer.? During the OR he was also thought to have osteomyelitis of coccyx which was also noted on CT pelvis.?Wound cultures were positive for Enterococcus faecalis VRE, Enterococcus fecium and Staphylococcus.? Given resistant bacteria ID was consulted to help with culture guided IV antibiotics. patient reports this is first time episode off OM. Current ulcer has been present for about one month now. has been growing in size. He will be following up with wound caere. During hospitalization he was treated with Zosyn and vancomycin, whih was then transitioned to ceftriaxoen and daptomycin after cx results. Review of Systems General: Reports: 10 or more systems reviewed and unremarkable except in HPI and below Const: Denies: fever(s), chills or body aches Eyes: Denies: change in vision, blurry vision or photophobia ENMT: Reports: hoarseness; Denies: throat pain, enlarged tonsils, odynophagia or nasal congestion Card: Denies: chest pain, palpitations, irregular heart rhythm, edema, swelling of feet/ankles, lightheadedness, pre-syncope, dyspnea on exertion or orthopnea Resp: Denies: dyspnea, productive cough, non-productive cough, wheezing, stridor, pain on inspiration, change in phlegm color, hemoptysis or chest congestion GI: Denies: abdominal pain, nausea, vomiting, hematemesis, coffee ground emesis, dysphagia, heartburn, diarrhea, constipation, GI cramping, change in stool character, hematochezia or melena : Denies: flank pain, dysuria, urinary frequency, urinary urgency, urinary hesitancy or hematuria Musc: Denies: neck pain, back pain, extremity pain, joint swelling, joint warmth or deformity Neuro: Denies: headache(s), numbness in extremities, weakness in extremities, sensory changes, difficulty walking, frequent falls, dizziness, vertigo, behavioral changes, Slurred speech present or seizure-like activity Psych: Denies: anxiety, depression, suicidal ideation or homicidal ideation Endo: Denies: polyuria, polydipsia, tired all the time, cold intolerance or hot flashes [place]/Lymph: Denies: easy bruising or easy bleeding Medications/Allergies Home Medications Medication Instructions Recorded Confirmed Last Taken Type nitroglycerin 0.4 mg sublingual 0.4 mg sublingual Q5M PRN chest 04/27/19 10/02/22 11/21/21 Rx tablet pain #30 tabs 20 tabs per pt & wif atorvastatin 40 mg tablet 40 mg PO QPM 11/22/21 10/02/22 06/21/22 History carvedilol 6.25 mg tablet 12.5 mg PO BID@0900,2100 #180 tabs 11/24/21 10/02/22 06/21/22 Rx clopidogrel 75 mg tablet 75 mg PO QAM #90 tabs 11/24/21 10/02/22 06/21/22 Rx potassium chloride 20 mEq 20 meq PO DAILY 07/08/22 10/02/22 Unknown History tablet,extended release(part/cryst) furosemide 40 mg tablet 40 mg PO DAILY 30 days #30 tabs 07/15/22 10/02/22 06/21/22 Rx bisacodyl 5 mg tablet,delayed 10 mg PO DAILY PRN Constipation 09/06/22 10/02/22 Unknown Rx release (see protocol) #30 tabs hydralazine 25 mg tablet 25 mg PO TID #90 tabs 09/06/22 10/02/22 06/21/22 Rx levofloxacin 750 mg tablet 750 mg PO DAILY@0600 42 days #42 09/06/22 10/02/22 Unknown Rx tabs daptomycin 500 mg intravenous 500 mg IV DAILY 09/11/22 10/02/22 Unknown History solution Allergies Allergy/AdvReac Type Severity Reaction Status Date / Time No Known Allergies Allergy Verified 10/02/22 12:49 Current Medications Generic Name Dose Route Start Last Admin Trade Name Freq PRN Reason Stop Dose Admin Acetaminophen 650 mg 08/30/22 19:10 09/04/22 13:16 Acetaminophen 325 Mg Tablet PO 650 mg Q6H PRN Administration Mild/Mod Pain Or Temp >/= 101 Atorvastatin Calcium 40 mg 08/31/22 18:00 09/05/22 17:00 Atorvastatin 40 Mg Tablet PO 40 mg QPM EM Administration Carvedilol 12.5 mg 09/02/22 21:00 09/06/22 10:42 Carvedilol 12.5 Mg Tablet PO 12.5 mg BID@0900,2100 EM Administration Clopidogrel Bisulfate 75 mg 09/03/22 06:00 09/06/22 05:40 Clopidogrel 75 Mg Tablet PO 75 mg QAM EM Administration Enoxaparin Sodium 40 mg 09/04/22 19:30 09/05/22 20:24 Enoxaparin 40 Mg/0.4 Ml Syringe SUBCUT 40 mg Q24H EM Administration Hydralazine HCl 25 mg 08/30/22 21:00 09/06/22 10:42 Hydralazine 25 Mg Tablet PO 25 mg TID EM Administration Daptomycin 785 mg/ Sodium 100 mls @ 100 mls/hr 09/05/22 16:00 09/05/22 18:20 Chloride IV Infused Q24H EM Infusion Protocol Levofloxacin 750 mg 09/05/22 11:15 09/06/22 05:40 Levofloxacin 750 Mg Tablet PO 750 mg DAILY@0600 EM Administration Protocol Nicotine 1 patch 08/30/22 21:00 09/05/22 20:24 Nicotine 14 Mg Patch TRANSDERMA 1 patch BEDTIME EM Administration Nicotine Polacrilex 2 mg 08/30/22 21:30 09/06/22 05:41 Nicotine 2 Mg Gum BUCCAL 2 mg Q2H PRN Administration NICOTINE CRAVINGS PFSH Acute PFSH: Medical History Acute on chronic renal failure Acute on chronic urinary retention Cardiomyopathy Cellulitis CHF (congestive heart failure) Chronic kidney disease Coronary artery disease Encephalopathy Falls frequently History of non-ST elevation myocardial infarction (NSTEMI) HTN (hypertension) Hyperlipidemia Hypothermia Ischemic cardiomyopathy Lactic acidosis Lacunar infarction Multiple sclerosis Periorbital edema of both eyes Skin ulcer Tobacco dependency Troponin level elevated Urinary retention Surgical History History of esophagogastroduodenoscopy (EGD) Hx of colonoscopy with polypectomy Hx of heart artery stent stents x 2, 2018- unknown vessels Family History Sister Heart disease Hypertension Myocardial infarction Mother Cancer Daughter Myocardial infarction Social History Smoking and tobacco status: current every day smoker cigarettes Packs smoked per day: 0.5 [ Other cigarette details: Cutting down] Alcohol intake: never Substance/Drug Use: unknown Adopted: No Caregiver/support person: No Lives independently: No Marital status: Single Vitals/I&O/Wt Last Vital Signs Temp 98 F 09/06/22 12:00 Pulse 71 09/06/22 12:00 Resp 18 09/06/22 12:00 BP 115/71 09/06/22 12:00 Pulse Ox 94 09/06/22 12:00 O2 Del Method Room Air 09/06/22 12:00 O2 Flow Rate 6 09/01/22 12:44 09/05/22 09/06/22 09/06/22 22:59 06:59 14:59 Intake Total 100 / 2000 480 / 480 Output Total 900 / 1300 350 / 1650 Balance -800 / 700 -350 / 350 480 / 480 Physical Exam Narrative: General: No acute distress, AO x3 HEENT: PERRLA, pupils bilaterally equal and reactive, pallors not present Neuro: bedbound due to MS Extremities: large sacral decub ulcer with bone at base Urinary Catheter Management: Barros: Cath Placed During This Visit: yes Reason for Continuing Indwelling Catheter: Assist healing open wound Urinary Catheter Date of Insertion: 08/30/22 Urinary Catheter Time of Insertion: 19:49 Data 09/06/22 04:46 09/06/22 06:05 Micro: Microbiology [facility] [address] [place] [id number] KAREN WILLARD, [employer] NAME: Armando Coleman LOC: WND U #: [id number] AGE/SX: 67/M ROOM: R E09/20/[address]: Pipo Welch : 1955 BED: DIS: FAX #: STATUS: DEP AMB TLOC: Spec #: [id number] Vipul: 09/20/22 Status: COMP Req #: [id number] Recd: 09/20/[address]: Pipo Welch([facility]) Src: Buttock SpDesc: Ordered: Tissue Cult GS Comments: BONE Procedure Result Verified Site Gram Stain Final 09/21/22-1147 Result FEW WHITE BLOOD CELLS NO ORGANISMS SEEN Tissue Culture Final 09/23/22-1136 NO GROWTH ON DAY 3 Tissue Culture Preliminary (changed) 09/22/22-1412 NO GROWTH ON DAY 2 Tissue Culture Preliminary (changed) 09/21/22-1514 NO GROWTH AFTER 1 DAY [facility] [address] [place] [id number] KAREN WILLARD, [employer] PRES[employer] NAME: Armando Coleman [facility]ill[facility] #: [id number] LOC: [facility] #: [id number] AGE/SX: 67/M ROOM: 278 RE08/30/[address]: Fernando Pace MD : 1955 BED: 2 DIS: 09/06/22 FAX #: STATUS: DIS IN TLOC: Spec #: [id number] Vipul: 09/01/22 Status: COMP Req #: [id number] Recd: 09/01/221529 Sub Dr: Carlitos Shetty DO Src: Buttock SpDesc: Ordered: WC and GS Comments: Comment sacral decubitus ulcer Procedure Result Verified Site Gram Stain Final 09/01/22-172 Result RARE WHITE BLOOD CELLS MODERATE GRAM NEGATIVE RODS FEW GRAM POSITIVE COCCI IN PAIRS Wound Culture Final 09/03/22-1643 Organism 1 Enterococcus faecium vre Growth MODERATE DAY 2 CRITICAL RESULT YES/NO: YES CRITICAL CALLED BY: AZAEL TO AND READ BACK BY: LUPE DATE: 09/03/22 TIME: 1644 Enterococc M.I.C. RX --------- ------ * Ampicillin >8 R * Ciprofloxacin >2 R * Erythromycin >4 R * Levofloxacin >4 R * Linezolid 4 I * Penicillin >8 R * Rifampin >2 R * Tetracycline >8 R Vancomycin >16 R Gentamicin Synergy Screen <=500 S Enterococcus faecium vre: Gram Pos Combo 33-MScan Gentamicin Synergy Screen S Wound Culture Preliminary (changed) 09/02/22-1325 Organism 1 Strep species, gamma-hemolytic Growth MODERATE [facility] [address] [place] [id number] KAREN WILLARD, [employer] PRES[employer] NAME: Armando Coleman [facility] #[facility] [id number] LOC: [facility] #: [id number] AGE/SX: 67/M ROOM: 278 RE08/30/[address]: Fernando Pace MD : 1955 BED: 2 DIS: 09/06/22 FAX #: STATUS: DIS IN TLOC: Spec #: [id number] Vipul: 09/01/22 Status: COMP Req #: [id number] Recd: 09/01/22-[address]: Carlitos Shetty DO Src: Buttock SpDesc: Ordered: WC and GS Comments: Comment sacral decubitus ulcer Procedure Result Verified Site Gram Stain Final 09/01/22-172 Result FEW WHITE BLOOD CELLS MODERATE GRAM POSITIVE COCCI IN PAIRS MODERATE GRAM NEGATIVE RODS FEW GRAM POSITIVE RODS Wound Culture Final 09/05/22-1208 Organism 1 Enterococcus faecalis Growth MODERATE Organism 2 Staphylococcus haemolyticus Growth MODERATE Organism 3 Alcaligenes faecalis MODERATE MIXED SUPERFICIAL SYLVIA ON DAY 3 E faecalis S haemolyt Alc faecal M.I.C. RX M.I.C. RX M.I.C. RX --------- ------ --------- ------ --------- ------ * Amikacin <=16 S * Ampicillin <=2 S >8 R * Aztreonam >16 R * Cefepime >16 R * Ceftriaxone 8 S * Ciprofloxacin >2 R >2 R * Clindamycin >4 R * Erythromycin >4 R * Gentamicin <=4 S 4 S * Imipenem <=1 S * Levofloxacin >4 R >4 R * Linezolid 4 I <=1 S * Oxacillin >2 R * Penicillin 2 S >8 R * Rifampin <=1 S * Tetracycline >8 R * Trimethoprim/Sulfamethoxazole >2/38 R <=2/38 S Vancomycin 2 S 2 S * Piperacillin/Tazobactam 64 I Gentamicin Synergy Screen >500 R Daptomycin 1 S <=0.5 S Enterococcus faecalis: Gram Pos Combo 33-MScan Gentamicin Synergy Screen R Wound Culture Preliminary (changed) 09/03/22-1634 Organism 1 Enterococcus faecalis Growth MODERATE Organism 2 Staphylococcus haemolyticus Growth MODERATE MODERATE MIXED SUPERFICIAL SYLVIA ON DAY 2 E faecalis S haemolyt M.I.C. RX M.I.C. RX --------- ------ --------- ------ * Ampicillin <=2 S >8 R * Ciprofloxacin >2 R * Clindamycin >4 R * Erythromycin >4 R * Gentamicin <=4 S * Levofloxacin >4 R * Linezolid 4 I <=1 S * Oxacillin >2 R * Penicillin 2 S >8 R * Rifampin <=1 S * Tetracycline >8 R * Trimethoprim/Sulfamethoxazole >2/38 R Vancomycin 2 S 2 S Gentamicin Synergy Screen >500 R Daptomycin 1 S <=0.5 S Enterococcus faecalis: Gram Pos Combo 33-MScan Gentamicin Synergy Screen R Wound Culture Preliminary (changed) 09/02/22-1319 MODERATE MIXED SUPERFICIAL SYLVIA ON DAY 1 Other data: CT/CT abdomen pelvis wo con [id number] IMPRESSION: Sacral decubitus ulcer extending to the bone at the tip of the coccyx with osteomyelitis likely at this location. Otherwise, no apparent areas of osteomyelitis elsewhere. A&P Assessment and plan (1) Osteomyelitis: (2) Pressure injury of deep tissue of sacral region: (3) Multiple sclerosis: Plan 67 male with PMH MS, chronically bed bound with stage 4 pressure ulcer over sacrum, with osteomyelitis of the coccyx This is reportedly a new ulcer over the past month. Suspect may have been growing over a longer time frame He will be established with wound care at discharge s/p I&D of large sacral ulver on 09/01 Bone cx with no growth Deep tissue cx with VRE E. Fecium - confirmed daptomycin susceotibility with lab superficial wound cx with polymicrobial organisms, not unexpected, suspect colonizers Recommend 6 week treatment with daptomycin 8mg/kg every 24 hrs for 6 weeks (starting date 09/01-10/13) along with wound care management. weekly CMP and CPK while on daptomycin Blood cx negative to date follow uo with WCC closely Consult Attestations Medical Necessity Statement: per admitting attending Coding Level of Care Code Acute Code for [facility] Fwd Diagnoses Osteomyelitis M86.9 Pressure injury of deep tissue of sacral region L89.156 Multiple sclerosis G35
[2022-09-06 12:22] LABS: SARS Covid-2 Antigen negative (Negative)
--- NOTE | 2022-09-06 12:54 | PC.NURSE ---
Report: Report called to [facility]. Report given to
== END 2022-09-06 13:41 | disposition skilled nursing facility (03) | DRG 571 ==
LOC: ER 18:51 → MEDSURG 18:53
PROVIDERS: Surgery; Admitting Provider Internal Medicine; Emergency Provider Family Medicine; PCP Registered Nurse; Visit Provider Student in an Organized Health Care Education/Training Program
PROC: 0QB10ZZ Excision of Sacrum, Open Approach (ICD-10-PCS; 2022-09-01 10:00)
DX: L89.154 Pressure ulcer of sacral region, stage 4 (principal); E87.1 Hypo-osmolality and hyponatremia; I13.0 Hypertensive heart and chronic kidney disease with heart failure and stage 1 through stage 4 chronic kidney disease, or unspecified chronic kidney disease; M86.9 Osteomyelitis, unspecified; I50.32 Chronic diastolic (congestive) heart failure; N17.9 Acute kidney failure, unspecified; L89.313 Pressure ulcer of right buttock, stage 3; B95.2 Enterococcus as the cause of diseases classified elsewhere; B95.7 Other staphylococcus as the cause of diseases classified elsewhere; B96.5 Pseudomonas (aeruginosa) (mallei) (pseudomallei) as the cause of diseases classified elsewhere; N18.9 Chronic kidney disease, unspecified; F17.210 Nicotine dependence, cigarettes, uncomplicated; I25.5 Ischemic cardiomyopathy; I25.10 Atherosclerotic heart disease of native coronary artery without angina pectoris; Z95.5 Presence of coronary angioplasty implant and graft; I25.2 Old myocardial infarction; E78.5 Hyperlipidemia, unspecified; G35 Multiple sclerosis; N31.9 Neuromuscular dysfunction of bladder, unspecified; R33.9 Retention of urine, unspecified; Z74.01 Bed confinement status; Z79.02 Long term (current) use of antithrombotics/antiplatelets
CPT/HCPCS: 12345; 36415; 36569; 36592; 51702; 71045; 74176; 80048; 80053; 80061; 80202; 81001; 82607; 82746; 83036; 83540; 83550; 83605; 84145; 84443; 85025; 85651; 86140; 87040; 87070; 87075; 87077; 87086; 87186; 87205; 87426; 87641; 93005; 96365; 96367; 96372; 99285; J0131; J0692; J0696; J0878; J1100; J1170; J1650; J2370; J2405; J2543; J2704; J3010; J3370; J3490; J7030; J7050; P9047; Q3014

== ENCOUNTER → 2022-09-20 13:02 | Outpatient (BNVA) | payer MEDICARE, MEDICAID, SELFPAY | PROVIDERS: PCP Registered Nurse; Visit Provider Thoracic Surgery (Cardiothoracic Vascular Surgery) | DX: I96 Gangrene, not elsewhere classified (principal); L89.154 Pressure ulcer of sacral region, stage 4; L89.312 Pressure ulcer of right buttock, stage 2 | CPT/HCPCS: 11042; 11044; 11047; 87070; 87176; 87205; 97597; 97598; 99213 ==

== ENCOUNTER 2023-06-06 10:46 | Inpatient (IN) | payer MEDICARE, MEDICAID, SELFPAY ==
[2023-06-06] VITALS (9 sets, daily range): BP systolic 95–182; BP diastolic 53–116; PULSE 44–84; RESP 14–20; TEMP 36.4–36.5; O2SAT 90–99; BMI 30.1; BMI 36.7
--- NOTE | 2023-06-06 10:52 | XR_ITS ---
WS: [id number] Exam: XR chest 1V portable [id number] Date/Time of Exam: 06/06/2023 11:03 AM Reason For Exam: dyspnea/cough Comparison 09/05/2022. Extensive chronic interstitial changes. Cardiac enlargement with increased pulmonary vascularity. No pleural effusions. No pneumothorax. The mediastinum is normal in contour. Unremarkable bony structure s. IMPRESSION: 1. Cardiac enlargement with increased pulmonary vascularity unchanged. 2. Extensive chronic interstitial changes throughout both lungs.
--- NOTE | 2023-06-06 10:56 | W.ED.MALEGU ---
HPI - Male Genitourinary General: Chief complaint: Urogenital-Male Stated complaint: uti Time Seen by Provider: 06/06/23 10:50 Source: patient Mode of arrival: EMS History of Present Illness: 68-year-old male presents emergency room via EMS weak somewhat confused from home foul-smelling urine in the last couple of days. Initially no seen the patient there are no family at the bedside. They reported some swelling to his face and legs he has been increasingly confused and having difficulty with urination. He denies fever sweats chills or chest pain or abdominal pain sites right flank pain has been going on several days no hematuria he was incontinent of urine and route to the hospital this morning. No diarrhea no vomiting. Onset (ago): day(s) Duration: constant Location: right flank Severity: moderate Quality: aching Relieving factors: none Exacerbating factors: none Associated symptoms: Deny discharge, dysuria, fevers/chills, hematuria, nausea, rash, swelling, urinary incontinence, urinary retention, mass or vomiting Review of Systems Const: Denies: fever(s) or chills Card: Denies: chest pain Resp: Denies: dyspnea GI: Denies: abdominal pain, nausea or vomiting : Denies: dysuria, urinary frequency, urinary urgency, urinary incontinence or hematuria Musc: Denies: neck pain or back pain Skin/Breast: Denies: rash PFSH ED PFSH: Medical History (Updated 06/11/23 @ 06:57 by Bulmaro Rhodes DO) Osteomyelitis Decubitus ulcer of sacral region, unstageable Diastolic CHF Cellulitis Cardiomyopathy Falls frequently Periorbital edema of both eyes Skin ulcer Acute on chronic urinary retention Encephalopathy Lactic acidosis Hypothermia Tobacco dependency Multiple sclerosis Troponin level elevated Urinary retention Acute on chronic renal failure Chronic kidney disease Coronary artery disease Lacunar infarction Hyperlipidemia HTN (hypertension) Ischemic cardiomyopathy History of non-ST elevation myocardial infarction (NSTEMI) CHF (congestive heart failure) Surgical History Hx of colonoscopy with polypectomy History of esophagogastroduodenoscopy (EGD) Hx of heart artery stent stents x 2, 2018- unknown vessels Family History Sister Heart disease Hypertension Myocardial infarction Mother Cancer Daughter Myocardial infarction Social History Smoking and tobacco/nicotine status: current every day tobacco/nicotine user cigarettes Packs smoked per day: 0.5 [ Other cigarette details: Cutting down] Alcohol intake: never Substance/Drug Use: unknown Adopted: No Caregiver/support person: No Lives independently: No Marital status: Single Physical Exam Const: GENERAL APPEARANCE: cooperative and comfortable ORIENTATION/CONSCIOUSNESS: Yes awake HENMT: COMMON NORMALS: normocephalic, atraumatic and hearing grossly normal bilaterally HEAD & SCALP: normocephalic and atraumatic Resp: COMMON NORMALS: normal respiratory effort, No retractions and No use of accessory muscles AUSCULTATION: crackles Cardio: COMMON NORMALS: regular rate, regular rhythm and No murmurs present (Cardio) RATE: regular rate RHYTHM: regular rhythm GI: COMMON NORMALS: Soft to palpation and No hepatosplenomegaly present AUSCULTATION: Yes normoactive bowel sounds PALPATION: Yes Soft to palpation, No Tenderness to palpation present (GI), No Guarding due to palpation present (GI) and Yes No hepatosplenomegaly present Back/Pelvis: OTHER: Acral decub ulcer appears to be tunneled. There is healing from previous sacral decub ulcers as well no active drainage at this time tissue around the opening at the sacral ulcer is devascularized Extremity: OTHER: 2+ edema lower extremities mild redness slightly warm to touch skin indurated Skin: COMMON NORMALS: no rashes or lesions noted GENERAL SKIN EXAM: no rashes or lesions noted Course Vital Signs: Vital signs: Vital Signs Temperature 97.6 F 06/10/23 20:00 Pulse Rate 73 06/11/23 04:55 Respiratory Rate 19 H 06/11/23 04:55 Blood Pressure 167/80 06/11/23 04:55 Pulse Oximetry 92 06/11/23 04:55 Oxygen Delivery Me thod Room Air 06/10/23 17:22 Oxygen Flow Rate 2 06/10/23 14:29 [facility] - Male Medical Decision Making Patient has decompensated congestive heart failure with large tunneled sacral decub. On CT there is areas concerning for osteomyelitis extending to the sacral. Additionally he has redness and erythema lower extremity suggestive of cellulitis. Finally also has a cystitis. Will admit to hospital discussed with hospitalist cultures done start antibiotics. His BNP is also markedly elevated. Lactic acid however is in the normal range he is not septic at this time. He will require surgical debridement of the sacral ulcer consult general surgery per hospitalist request. Medical Records I reviewed the patient's medical records. Lab Data I reviewed the patient's lab results. 06/11/23 04:56 06/11/23 04:56 Laboratory Results WBC 10.22 10^3/uL (3.29-11.43) 06/06/23 11:11 RBC 4.40 10^6/uL (3.85-5.65) 06/06/23 11:11 Hgb 12.20 g/dL (11.27-16.99) 06/06/23 11:11 Hct 39.2 % (37-53) 06/06/23 11:11 MCV 89.1 fl (82-101) 06/06/23 11:11 MCH 27.7 pg (27-33) 06/06/23 11:11 MCHC 31.1 g/dL (30-55) 06/06/23 11:11 RDW 16.3 % (12.1-15.1) H 06/06/23 11:11 Plt Count 277 10^3/cmm (157-399) 06/06/23 11:11 MPV 9.2 fL (7.4-10.4) 06/06/23 11:11 Neut % (Auto) 77.5 % 06/06/23 11:11 Lymph % (Auto) 9.1 % 06/06/23 11:11 [place] % (Auto) 9.9 % 06/06/23 11:11 Eos % (Auto) 2.3 % 06/06/23 11:11 Baso % (Auto) 1.0 % 06/06/23 11:11 Neut # (Auto) 7.92 10^3/uL (1.8-7.7) H 06/06/23 11:11 Lymph # (Auto) 0.9 10^3/uL (0.8-4.8) 06/06/23 11:11 [place] # (Auto) 1.0 10^3/uL (0.2-0.9) H 06/06/23 11:11 Eos # (Auto) 0.2 10^3/uL (0.0-0.8) 06/06/23 11:11 Baso # (Auto) 0.1 10^3/uL (0.0-0.1) 06/06/23 11:11 Nucleated RBC % (auto) 0 % 06/06/23 11:11 Nucleated RBCs # 0.0 /100WBC 06/06/23 11:11 Sodium 137 mmol/L (136-145) 06/06/23 11:11 Potassium 4.4 mmol/L (3.5-5.1) 06/06/23 11:11 Chloride 99 mmol/L (98-107) 06/06/23 11:11 Carbon Dioxide 26 mmol/L (22-29) 06/06/23 11:11 Anion Gap 16.4 (5-19) 06/06/23 11:11 BUN 29 mg/dL (8-23) H 06/06/23 11:11 Creatinine 1.2 mg/dL (0.7-1.2) 06/06/23 11:11 GFR Calculation 60.0 mL/min (90-130) L 06/06/23 11:11 Glucose 101 mg/dL (65-115) 06/06/23 11:11 Calculated Osmolality 290 mOsm/kg (285-295) 06/06/23 11:11 Lactic Acid 1.9 mmol/L (0.5-2.2) 06/06/23 11:11 Calcium 8.9 mg/dL (8.5-10.5) 06/06/23 11:11 Total Bilirubin 1.0 mg/dL (0.15-1.2) 06/06/23 11:11 AST 19 U/L (0-40) 06/06/23 11:11 ALT 17 U/L (0-41) 06/06/23 11:11 Alkaline Phosphatase 127 U/L (40-130) 06/06/23 11:11 C-Reactive Protein 48.5 mg/L (0.0-4.9) H 06/06/23 11:11 NT-Pro-B Natriuret Pep 29099 pg/mL (0-125) H 06/06/23 11:11 Total Protein 7.2 g/dL (6.6-8.7) 06/06/23 11:11 Albumin 3.5 g/dL (3.5-5.2) 06/06/23 11:11 Globulin 3.7 g/dL (1.3-4.6) 06/06/23 11:11 Procalcitonin 0.10 ng/mL (0-0.5) 06/06/23 11:11 TSH 1.89 uIU/mL (0.27-4.20) 06/06/23 11:11 Urine Color Dark yellow (Yellow) 06/06/23 11:40 Urine Appearance Hazy (CLEAR) A 06/06/23 11:40 Urine pH 5 (5-7) 06/06/23 11:40 Ur Specific [place] 1.015 (1.005-1.030) 06/06/23 11:40 Urine Protein 3+ (Negative) H 06/06/23 11:40 Urine Glucose (UA) Norm (Normal) 06/06/23 11:40 Urine Ketones 1+ (Negative) H 06/06/23 11:40 Urine Blood 2+ (Negative) H 06/06/23 11:40 Urine Nitrate Positive (Negative) H 06/06/23 11:40 Urine Bilirubin 1+ (Negative) H 06/06/23 11:40 Urine Urobilinogen 4 mg/dL (Negative) H 06/06/23 11:40 Ur Leukocyte Esterase 1+ (Negative) H 06/06/23 11:40 Urine RBC 0-4 /hpf (0-2) H 06/06/23 11:40 Urine WBC 40-55 /hpf (0-5) H 06/06/23 11:40 Ur Squamous Epith Cells 0-4 /hpf (0-5) H 06/06/23 11:40 Amorphous Sediment Not Reportable 06/06/23 11:40 Urine Bacteria 4+ /hpf (NONE) H 06/06/23 11:40 All radiology interpretation(s) finalized by discharge Discharge Plan Discharge Patient Disposition: Admitted As Inpatient Admit Provider: Jane Sargent Clinical Impression: CHF (congestive heart failure), Chronic kidney disease, Sacral decubitus ulcer, stage IV, Altered mental status, Cystitis, Bilateral cellulitis of lower leg Condition: Stable Coding Level of Care Code ED Shelter Advocate for Kathryn Olmstead
[2023-06-06 11:14] LABS: Basophils # 0.1 10^3/uL (0.0-0.1); Eosinophils # 0.2 10^3/uL (0.0-0.8); Eosinophils % 2.3 %; Hematocrit 39.2 % (37-53); Lymphocytes # 0.9 10^3/uL (0.8-4.8); Lymphocytes % 9.1 %; Mean Corpuscular HGB Conc 31.1 g/dL (30-55); Mean Corpuscular Hemoglobin 27.7 pg (27-33); Mean Corpuscular Volume 89.1 fl (82-101); Mean Platelet Volume 9.2 fL (7.4-10.4); Monocytes % 9.9 %; Neutrophils # 7.92 10^3/uL (1.8-7.7); Neutrophils % 77.5 %; Nucleated Red Blood Cells % 0 %; Platelet Count 277 10^3/cmm (157-399); Red Cell Distribution Width 16.3 % (12.1-15.1); White Blood Count 10.22 10^3/uL (3.29-11.43)
--- NOTE | 2023-06-06 11:23 | ECG_ITS ---
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 Measurements Intervals [place] Rate: 66 P: 78 NM: 229 QRS: 102 QRSD: 196 T: -53 QT: 490 QTc: 515 Interpretive Statements SINUS RHYTHM WITH FIRST DEGREE AV BLOCK WITH OCCASIONAL VENTRICULAR PREMATURE COMPLEXES RIGHT AXIS DEVIATION [QRS AXIS > 100] RIGHT BUNDLE BRANCH BLOCK [120+ ms QRS DURATION, UPRIGHT V1, 40+ ms S IN I/aVL/V4/V5/V6] MODERATE T-WAVE ABNORMALITY, CONSIDER LATERAL ISCHEMIA [-0.1+ mV T-WAVE IN I/aVL/V5/V6] MODERATE T-WAVE ABNORMALITY, CONSIDER INFERIOR ISCHEMIA [-0.1+ mV T-WAVE IN II/aVF] Compared to ECG 09/02/2022 09:34:00 First degree AV block now present Right-axis deviation now present T-wave abnormality now present Possible ischemia now present Myocardial infarct finding no longer present Electronically Signed On 06-06-2023 17:59:22 WEIGHT TESTER by Debora Sevilla M.D. [id number]
[2023-06-06 11:32] LABS: Lactic Sepsis W/Reflex 1.9 mmol/L (0.5-2.2)
[2023-06-06 11:36] LABS: Alanine Aminotransferase 17 U/L (0-41); Albumin Level 3.5 g/dL (3.5-5.2); Alkaline Phosphatase 127 U/L (40-130); Anion Gap 16.4 (5-19); Aspartate Amino Transferase 19 U/L (0-40); Blood Urea Nitrogen 29 mg/dL (8-23); Calcium 8.9 mg/dL (8.5-10.5); Carbon Dioxide 26 mmol/L (22-29); Chloride 99 mmol/L (98-107); Creatinine Clr Calc Pharmacy 67.3034; Globulin 3.7 g/dL (1.3-4.6); Glucose 101 mg/dL (65-115); Osmolality Calculated 290 mOsm/kg (285-295); Potassium 4.4 mmol/L (3.5-5.1); Sodium 137 mmol/L (136-145); Total Protein 7.2 g/dL (6.6-8.7)
[2023-06-06] MEDS: sodium chloride 0.9% 1,000 ML 999 ML IV (11:37)
--- NOTE | 2023-06-06 12:06 | CT_ITS ---
WS: [id number] CT ABDOMEN AND PELVIS NONCONTRAST HISTORY: flank pain TECHNIQUE: Imaging performed through the abdomen and pelvis. Coronal and sagittal reformats are submi tted. All CT scans at [facility] use at least one of these dose optimization techniques: auto mated exposure control; mA and/or kV adjustment per patient size (includes targeted exams where dose is matched to clinical indication); or iterative reconstruction. DLP: 1222.93 mGy.cm COMPARISON: 09/02/2022 CT examination is significantly compromised by motion artifact and rotation. Lower thorax: Motion artifact. No pneumonia identified. There is severe enlargement of the cardiac ch ambers. There is marked soft tissue anasarca throughout this lower thorax. Greatest distribution to the LEFT which is probably dependent edema. Liver: Limited by motion. Normal size. No abnormality identified. Gallbladder: Gallbladder is present. Other than that the motion is causing significant distortion. Co mmon bile duct cannot be evaluated. Pancreas: Limited. No abnormality seen. Spleen: Normal. Adrenal glands: Normal. No mass. Right kidney: Moderate atrophy. No obstruction. 2 mm calcification in the central renal pelvis. There is no obstruction. No ureteral calcification. Left kidney: Moderate atrophy with no obstruction. Aorta: Extensive atherosclerosis. Mesenteric artery calcifications. Lymph nodes would be difficult to exclude with this amount of motion. No large clusters of adenopathy . No free fluid or free air identified. GI tract: No obstruction. The appendix does appear normal. Abdominal wall: Negative. No hernia. Pelvis: Well-distended urinary bladder. No free fluid. Soft tissue edema and anasarca. There is a dec ubitus ulcer posterior to the sacrum and coccyx but appears much improved since 09/02/2022. There is a partial gap in soft tissue tract but the gap is much smaller. Reidentified is bony destruction of th e sacrum and coccyx which was also present on the prior study. Osseous structures: Unremarkable. IMPRESSION: 1. The study is significantly compromised by rotation and motion. 2. Diffuse soft tissue anasarca. 3. No renal obstruction. 4. No GI tract obstruction. The appendix is visualized there is normal. 5. Posterior decubitus ulcer has improved since 09/02/2022. Reidentified are changes of osteomyelitis involving the distal sacrococcygeal segments. 6. Marked cardiomegaly.
[2023-06-06 12:11] LABS: Glucose Urine UA Norm (Normal); Ketones Urine 1+ (Negative); Protein Urine 3+ (Negative); Specific Gravity, Urine 1.015 (1.005-1.030); Urine Appearance Hazy (CLEAR); Urine Color Dark Yellow (Yellow); pH Urine 5 (5-7)
[2023-06-06 12:12] LABS: Add Urine Culture? Yes; Add Urine Microscopic? YES; Bacteria Urine 4+ /hpf; Bilirubin Urine 1+ (Negative); Blood Urine 2+ (Negative); Leukocyte Esterase Urine 1+ (Negative); Nitrate Urine Positive (Negative); RBC Urine 0-4 /hpf (0-2); Squamous Epithelial Cell Urine 0-4 /hpf (0-5); Urobilinogen Urine 4 mg/dL (Negative); WBC Urine 40-55 /hpf (0-5)
[2023-06-06] MEDS: hyDRALAzine 20 mg/mL INJ 1 mL 10 MG IVP (12:48)
--- NOTE | 2023-06-06 14:46 | P.HP_ITS ---
Providers/Chief Complaint 2 Primary Care Provider: Kylie Vogel Chief Complaint: uti History of Present Illness Armando Coleman is a 68 year old male With past medical history of cardiomyopathy, frequent falls, chronic wounds currently following up with wound care clinic, multiple sclerosis, neurogenic bladder self catheterizes, hyperlipidemia, hypertension, ischemic cardiomyopathy, history of NSTEMI, congestive heart failure presented to the hospital today with altered mental status. He states he does not remember what happened and he just found himself in the hospital. He says I guess the ambulance brought him in. There is no family at bedside. He says maybe family will be coming later but he does not know who is coming in on him. He also has not seen. He says he feels his face swelled up however otherwise unable to give me any concrete history. He is a very poor historian. Denies chest pain, abdominal pain, nausea vomiting diarrhea. Of note patient has had Enterococcus VRE, staph in sacral ulcer in the past and has had required debridement. ED course: 161/116, straight 18, pulse 72, temperature 97.7, saturating 95% on room air. Patient was found to be very incontinent of urine with the pillow soaked at bedside. He is confused but awake and alert. He was evaluated by ER physician evaluated. He states her sacral region therefore CT abdomen pelvis was pursued for that. CT abdomen pelvis shows diffuse soft tissue anasarca, posterior decubitus ulcer shows improvement 09/02/2022. Changes of osteomyelitis involving distal sacrococcygeal segments seen, marked cardiomegaly. General surgery was consulted. Medications/Allergies Home Medications Medication Instructions Recorded Confirmed Last Taken Type nitroglycerin 0.4 mg sublingual 0.4 mg sublingual Q5M PRN chest 04/27/19 06/06/23 1 Week Ago Rx tablet pain #30 tabs ~05/30/23 atorvastatin 40 mg tablet 40 mg PO QPM 11/22/21 06/06/23 06/05/23 History clopidogrel 75 mg tablet 75 mg PO QAM #90 tabs 11/24/21 06/06/23 1 Week Ago Rx ~05/30/23 potassium chloride 20 mEq 20 meq PO DAILY 07/08/22 06/06/23 1 Week Ago History tablet,extended release(part/cryst) ~05/30/23 furosemide 40 mg tablet 40 mg PO DAILY 30 days #30 tabs 04/10/23 03/01/24 1 Week Ago Rx ~05/30/23 hydralazine 25 mg tablet 25 mg PO TID #90 tabs 09/06/22 06/06/23 1 Week Ago Rx ~05/30/23 tizanidine 4 mg capsule 4 mg PO QID PRN Muscle Spasm 12/11/22 06/06/23 Unknown History acetaminophen 325 mg tablet 650 mg PO QID PRN Pain 06/06/23 06/06/23 Unknown History carvedilol 6.25 mg tablet 6.25 mg PO BID@0900,2100 06/06/23 06/06/23 1 Day Ago History ~06/05/23 ibuprofen 200 mg tablet (Advil) 400 mg PO Q6H PRN Pain 06/06/23 06/06/23 Unknown History Allergies Allergy/AdvReac Type Severity Reaction Status Date / Time No Known Allergies Allergy Verified 06/06/23 10:54 PFSH Acute 2 PFSH: Medical History Cellulitis Cardiomyopathy Falls frequently Periorbital edema of both eyes Skin ulcer Acute on chronic urinary retention Encephalopathy Lactic acidosis Hypothermia Tobacco dependency Multiple sclerosis Troponin level elevated Urinary retention Acute on chronic renal failure Chronic kidney disease Coronary artery disease Lacunar infarction Hyperlipidemia HTN (hypertension) Ischemic cardiomyopathy History of non-ST elevation myocardial infarction (NSTEMI) CHF (congestive heart failure) Surgical History Hx of colonoscopy with polypectomy History of esophagogastroduodenoscopy (EGD) Hx of heart artery stent stents x 2017- unknown vessels Family History Sister Heart disease Hypertension Myocardial infarction Mother Cancer Daughter Myocardial infarction Social History Smoking and tobacco/nicotine status: current every day tobacco/nicotine user cigarettes Packs smoked per day: 0.5 [ Other cigarette details: Cutting down] Alcohol intake: never Substance/Drug Use: unknown Adopted: No Caregiver/support person: No Lives independently: No Marital status: Single Vitals/I&O/Wt Last Vital Signs Temp 97.7 F 06/06/23 10:50 Pulse 52 L 06/06/23 13:00 Resp 18 06/06/23 13:00 BP 159/83 06/06/23 13:00 Pulse Ox 99 06/06/23 13:00 O2 Del Method Nasal Cannula 06/06/23 13:00 O2 Flow Rate 3 06/06/23 13:00 Weight last 48 hrs Weight 95.254 kg Physical Exam 2 Narrative: General: Alert and awake, confused, Patient seen laying in bed, Laying flat with no respiratory distress however on nasal canula HEENT: Normocephalic, atraumatic, EOMI, Cardio: Regular rate rhythm, normal S1-S2, Respiratory: Clear to auscultation bilaterally, mild ronchi at bases GI: Abdomen soft, nontender, bowel sounds + Extremities: BLE Erythema noted Thickened toenails. Scrotal edema present. Erythematous scrotum, erythematous pannus. Generalized erythema sacral region ulcer noted however unable to fully examine 2/2 to pt positioning and cooperation Data 06/06/23 11:11 06/06/23 11:11 Micro: Microbiology 06/06/23 14:10 Blood Culture - Preliminary Blood SPECIMEN COLLECTED 06/06/23 14:16 Blood Culture - Preliminary Blood SPECIMEN COLLECTED A&P Assessment and plan (1) CHF (congestive heart failure): (2) Diastolic CHF: (3) Chronic kidney disease: (4) Sacral decubitus ulcer, stage IV: (5) Multiple sclerosis: (6) Altered mental status: Plan #Altered Mental Status 2/2 most likely UTI - Pt not septic #UTI #Acute on Chronic congestive heart failure, diastolic #Generalized anasarca #Coronary artery disease status post stent November 2021 #Multiple sclerosis #Neurogenic bladder, self caths at home #CKD #Hyperlipidemia #Hypertension #Cellulitis b/l LE and abdomen area ? Placed on vancomycin and Zosyn at this time for sacral ulcer and UTI ? Interdry sheets between skin folds to be applied ? Nystatin powder for skin folds ? Continue hydralazine 25 3 times daily, losartan daily, aspirin, atorvastatin ? Continue Coreg -Check blood cultures, urine culture ? Place Barros catheter for accurate output and neurogenic bladder. Self caths at home. ? Vitals every 4 hours ? Check CRP, CPK, CBC, BMP, magnesium in a.m. ? PT OT. ? Will need wound care at discharge ? Check lactic acid - Hold IV fluids - BNP 65258 - Pt does appear fluid overloaded at this time - Will place on lasix 40 IV daily - General surgery consulted for sacral ulcer - Full code Heparin SQ twice daily, SCDs Attestations 2 Medical Necessity Statement*: >2 midnight stay expected Diagnoses CHF (congestive heart failure) I50.9 Diastolic CHF I50.30 Chronic kidney disease N18.9 Sacral decubitus ulcer, stage IV L89.154 Multiple sclerosis G35 Altered mental status R41.82
[2023-06-06] MEDS: piperacillin-tazobactam 3.375 GM in sodium chloride 0.9% (plus) 50 ML IV ×2 (15:01→20:56)
[2023-06-06] MEDS: vancomycin 1,000 MG in sodium chloride 0.9% 250 ML 250 MG IV (15:02)
[2023-06-06 15:36] LABS: NT Pro B Type Natriuretic Pept 32520 pg/mL (0-125); Thyroid Stimulating Hormone 1.89 uIU/mL (0.27-4.20)
[2023-06-06 15:46] LABS: C Reactive Protein 48.5 mg/L (0.0-4.9)
--- NOTE | 2023-06-06 16:56 | P.CONIM_ITS ---
Providers/Reason For Consult 2 Consulting Physician/Specialty*: General surgery Reason for Consult*: Sacral decubitus ulcer Attending Physician: Jane Sargent MD Primary Care Provider: Kylie Vogel History of Present Illness History of Present Illness Armando Coleman is a 68 year old male admitted to the hospital with UTI. He has a history of a sacral decubitus ulcer that was debrided on August 2022, at that time he was discharged with follow-up in the wound care clinic. Last documented follow-up in order service was on December 2022 at the time wound appeared to be granulating and appeared to be healthy. Since then patient has been doing twice a day wet-to-dry dressing and according to him he has been healing fine. Denies discharge, denies drainage, denies purulence. Review of Systems 2 General: Reports: 10 or more systems reviewed and unremarkable except in HPI and below Medications/Allergies Home Medications Medication Instructions Recorded Confirmed Last Taken Type nitroglycerin 0.4 mg sublingual 0.4 mg sublingual Q5M PRN chest 04/27/19 06/06/23 1 Week Ago Rx tablet pain #30 tabs ~05/30/23 atorvastatin 40 mg tablet 40 mg PO QPM 11/22/21 06/06/23 06/05/23 History clopidogrel 75 mg tablet 75 mg PO QAM #90 tabs 11/24/21 06/06/23 1 Week Ago Rx ~05/30/23 potassium chloride 20 mEq 20 meq PO DAILY 07/08/22 06/06/23 1 Week Ago History tablet,extended release(part/cryst) ~05/30/23 furosemide 40 mg tablet 40 mg PO DAILY 30 days #30 tabs 07/15/22 06/06/23 1 Week Ago Rx ~05/30/23 hydralazine 25 mg tablet 25 mg PO TID #90 tabs 09/06/22 06/06/23 1 Week Ago Rx ~05/30/23 tizanidine 4 mg capsule 4 mg PO QID PRN Muscle Spasm 12/11/22 06/06/23 Unknown History acetaminophen 325 mg tablet 650 mg PO QID PRN Pain 06/06/23 06/06/23 Unknown History carvedilol 6.25 mg tablet 6.25 mg PO BID@0900,2100 06/06/23 06/06/23 1 Day Ago History ~06/05/23 ibuprofen 200 mg tablet (Advil) 400 mg PO Q6H PRN Pain 06/06/23 06/06/23 Unknown History Allergies Allergy/AdvReac Type Severity Reaction Status Date / Time No Known Allergies Allergy Verified 06/06/23 10:54 PFSH Acute 2 PFSH: Medical History Cellulitis Cardiomyopathy Falls frequently Periorbital edema of both eyes Skin ulcer Acute on chronic urinary retention Encephalopathy Lactic acidosis Hypothermia Tobacco dependency Multiple sclerosis Troponin level elevated Urinary retention Acute on chronic renal failure Chronic kidney disease Coronary artery disease Lacunar infarction Hyperlipidemia HTN (hypertension) Ischemic cardiomyopathy History of non-ST elevation myocardial infarction (NSTEMI) CHF (congestive heart failure) Surgical History Hx of colonoscopy with polypectomy History of esophagogastroduodenoscopy (EGD) Hx of heart artery stent stents x 2017- unknown vessels Family History Sister Heart disease Hypertension Myocardial infarction Mother Cancer Daughter Myocardial infarction Social History Smoking and tobacco/nicotine status: current every day tobacco/nicotine user cigarettes Packs smoked per day: 0.5 [ Other cigarette details: Cutting down] Alcohol intake: never Substance/Drug Use: unknown Adopted: No Caregiver/support person: No Lives independently: No Marital status: Single Vitals/I&O/Wt Last Vital Signs Temp 97.7 F 06/06/23 10:50 Pulse 72 06/06/23 16:39 Resp 18 06/06/23 16:39 BP 159/83 06/06/23 13:00 Pulse Ox 95 06/06/23 16:39 O2 Del Method Nasal Cannula 06/06/23 15:00 O2 Flow Rate 3 06/06/23 15:00 Weight last 48 hrs Weight 210 lb Physical Exam 2 Narrative: General : Patient is slightly somnolent but arousable, no acute distress, oriented Head : Normal cephalic, a-traumatic. Nose : Mucous membranes are without erythema. Lungs : Equal chest rise bilaterally, no use of accessory muscles, trachea is midline. CV : Rate and rhythm are normal. Abdomen : Soft, ND, NT, no g/r/m Back: On the lower back at the level of the sacrum there is evidence of a sacral decubitus ulcer, majority of the ulcer has healed completely and is now epithelialized, there is only 0.5 cm ulceration that tracks into the subcutaneous tissue but has minimal undermining and does not track all the way down to the bone after probing. There is show 0.5 cm area of ulceration has about a 0.5 cm surrounding callus. Urinary Catheter Management: Barros: Cath Placed During This Visit: yes Urinary Catheter Date of Insertion: 06/06/23 Urinary Catheter Time of Insertion: 15:59 Data 06/06/23 11:11 06/06/23 11:11 Micro: Microbiology 06/06/23 14:10 Blood Culture - Preliminary Blood SPECIMEN COLLECTED 06/06/23 14:16 Blood Culture - Preliminary Blood SPECIMEN COLLECTED A&P Assessment and plan (1) Sacral decubitus ulcer, stage IV: Plan After complete history, physical examination and review of all the labile clinical data the following is my assessment. Patient has a decubitus ulcer with documented osteomyelitis that has been receiving treatment since August 2022. Wound has made a very remarkable improvement as when compared with the last picture in the chart dated 12/28. Wound is almost completely epithelialized, there is no discharge, there is no purulence, there is only a 0.5 cm ulceration that presents into the subcutaneous tissue but after probing does not appear to track down to the bone. At this point there is no indication for acute need of surgical intervention or debridement. But patient will benefit from follow-up in the wound care clinic for sequential debridements as an outpatient to help with healing of the small area of the ulceration remaining. In the meantime patient can continue wet-to-dry dressing with a wet portion of the sponge been in contact only with the ulcerated region to prevent maceration of the skin. No surgical intervention is planned during this admission. Thank you for this consultation. Coding Level of Care Code 37503 Diagnoses Sacral decubitus ulcer, stage IV L89.154
[2023-06-06] MEDS: heparin 5,000 unit/mL INJ 1 mL 5000 UNIT SUBCUT (18:06)
[2023-06-06] MEDS: atorvastatin 40 mg Tablet PO (18:07)
[2023-06-06] MEDS: sodium chloride 0.9% 1,000 ML 100 ML IV (18:07)
[2023-06-06] MEDS: hyDRALAzine 25 mg Tablet PO ×2 (18:07→20:56)
[2023-06-06] MEDS: FUROsemide 10 mg/mL SDV 4mL 40 MG IVP (20:55)
[2023-06-06] MEDS: acetaminophen 325 mg Tablet 650 MG PO (21:45)
[2023-06-06] MEDS: tizanidine 4 mg Tablet PO (21:46)
--- NOTE | 2023-06-06 22:51 | PC.NURSE ---
Attempt to wean patient off oxygen and oxygen saturation dropped to 87 percent. Patient currently on 2 liters nasal cannula.
[2023-06-07] VITALS (9 sets, daily range): BP systolic 121–177; BP diastolic 66–98; PULSE 46–72; RESP 16–18; TEMP 36.4–36.8; O2SAT 92–96
--- NOTE | 2023-06-07 00:19 | PC.NURSE ---
Addendum entered by Ludivina Meeks RN 06/07/23 00:31: EKG and VS taken. Original Note: Dr. Rome notified of patient's heart rate being in the 60s earlier while awake and now in the 40s while sleeping.
--- NOTE | 2023-06-07 00:26 | ECG_ITS ---
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 Measurements Intervals [place] Rate: 42 P: 40 MA: 232 QRS: 106 QRSD: 196 T: -81 QT: 559 QTc: 470 Interpretive Statements SINUS BRADYCARDIA WITH FIRST DEGREE AV BLOCK WITH OCCASIONAL VENTRICULAR PREMATURE COMPLEXES RIGHT AXIS DEVIATION [QRS AXIS > 100] RIGHT BUNDLE BRANCH BLOCK [120+ ms QRS DURATION, UPRIGHT V1, 40+ ms S IN I/aVL/V4/V5/V6] MODERATE T-WAVE ABNORMALITY, CONSIDER ANTEROLATERAL ISCHEMIA [-0.1+ mV T-WAVE IN V3-V6] MODERATE T-WAVE ABNORMALITY, CONSIDER INFERIOR ISCHEMIA [-0.1+ mV T-WAVE IN II/aVF] PROLONGED QT INTERVAL Compared to ECG 06/06/2023 11:23:16 Ventricular premature complex(es) now present Prolonged QT interval now present Sinus rhythm no longer present T-wave abnormality still present Possible ischemia still present Electronically Signed On 06-07-2023 10:11:17 REHABILITATION CASE COORDINATOR by Parish Lea M.D. [id number]
[2023-06-07] MEDS: heparin 5,000 unit/mL INJ 1 mL 5000 UNIT SUBCUT ×2 (04:02→16:03)
[2023-06-07] MEDS: piperacillin-tazobactam 3.375 GM in sodium chloride 0.9% (plus) 50 ML IV ×3 (04:10→23:06)
[2023-06-07 05:05] LABS: Basophils # 0.1 10^3/uL (0.0-0.1); Basophils % 1.1 %; Eosinophils # 0.3 10^3/uL (0.0-0.8); Eosinophils % 3.7 %; Hematocrit 35.6 % (37-53); Lymphocytes # 0.9 10^3/uL (0.8-4.8); Lymphocytes % 9.8 %; Mean Corpuscular HGB Conc 31.2 g/dL (30-55); Mean Corpuscular Hemoglobin 27.6 pg (27-33); Mean Corpuscular Volume 88.6 fl (82-101); Mean Platelet Volume 9.9 fL (7.4-10.4); Monocytes # 1.1 10^3/uL (0.2-0.9); Monocytes % 12.3 %; Neutrophils # 6.52 10^3/uL (1.8-7.7); Neutrophils % 72.7 %; Nucleated Red Blood Cells % 0 %; Platelet Count 246 10^3/cmm (157-399); Red Blood Count 4.02 10^6/uL (3.85-5.65); Red Cell Distribution Width 16.5 % (12.1-15.1); White Blood Count 8.97 10^3/uL (3.29-11.43)
[2023-06-07 05:20] LABS: INR 1.24 (0.8-1.2)
[2023-06-07 05:39] LABS: Alanine Aminotransferase 14 U/L (0-41); Albumin Level 3.1 g/dL (3.5-5.2); Alkaline Phosphatase 108 U/L (40-130); Anion Gap 13.8 (5-19); Aspartate Amino Transferase 11 U/L (0-40); Blood Urea Nitrogen 30 mg/dL (8-23); Calcium 8.2 mg/dL (8.5-10.5); Carbon Dioxide 27 mmol/L (22-29); Chloride 104 mmol/L (98-107); Globulin 3.1 g/dL (1.3-4.6); Glucose 100 mg/dL (65-115); Magnesium 2.4 mg/dL (1.7-2.3); Osmolality Calculated 298 mOsm/kg (285-295); Potassium 3.8 mmol/L (3.5-5.1); Sodium 141 mmol/L (136-145); Total Bilirubin 0.9 mg/dL (0.15-1.2); Total Protein 6.2 g/dL (6.6-8.7)
--- NOTE | 2023-06-07 06:00 | USCV_ITS ---
Armando Coleman Age: 68 Gender: M : 1955 Exam Date: 06/07/2023 06:58 Ordering Phys: Jane Sargent MD Technologist: Tuan Kidd Exam Location: [facility] [place] Indication: chf BP: 146 / 72 HR: 77 Rhythm: Sinus Technical Quality: Adequate MEASUREMENTS (Male / Female) Normal Values 2D ECHO LVOT Diameter 2.1 cm LV Ejection Fraction MOD 2C 34.3 % LV Ejection Fraction 2C AL 0.0 % LA Diameter 3.2 cm RA Systolic Volume 4C AL 97.9 ml RA Systolic Volume 4C MOD 95.8 ml Aorta at Sinotubular Diameter 2.5 cm IVC Diameter 2.5 cm M-MODE LA Ao Ratio MM 1.4 AV Cusp Separation MM 1.9 cm DOPPLER AV Peak Velocity 186.0 cm/s LVOT Peak Velocity 126.0 cm/s AV Area Cont Eq vti 2.9 cm squared AV Area Cont Eq pk 2.3 cm squared MV Peak Velocity 121.0 cm/s MV Area PHT 8.5 cm squared Mitral E to A Ratio 2.6 TV Peak Velocity 251.7 cm/s TR Peak Velocity 298.0 cm/s TR Peak Gradient 35.5 mmHg TR Mean Velocity 204.0 cm/s TR Mean Gradient 19.2 mmHg TR Velocity Time Integral 91.2 cm PV Peak Velocity 98.0 cm/s RV Ejection Time 0.3 s FINDINGS Left Ventricle Left ventricle is normal size. LV systolic function is severely reduced with EF of 20-25%. Severe global hypokinesis. Right Ventricle Moderately hypokinetic. Right Atrium Dilated Left Atrium Dilated Mitral Valve Moderate mitral annular calcification. Moderate eccentric mitral regurgitation. Aortic Valve Aortic valve is thickened. No significant stenosis. Mild to moderate regurgitation. Tricuspid Valve Trace tricuspid regurgitation. Insufficient TR jet to calculate RVSP. Pulmonic Valve Not well visualized Pericardium Normal Aorta Ascending aorta is mildly dilated with diameter of 3.66cm IVC Dilated CONCLUSIONS LV systolic function is severely reduced with EF of 20 to 25%. Moderately hypokinetic RV Moderate eccenteric mitral regurgitation Mild to moderate regurgitation Trace tricuspid regurgitation Ascending aorta is mildly dilated with diameter of 3.66cm IVC is dilated Compared to prior echocardiogram from 2022, LV systolic function appears to have decreased significantly now. Parish Lea MD (Electronically Signed) Final Date: 07 June 2023 11:33 S
--- NOTE | 2023-06-07 06:07 | PC.NURSE ---
Patient requesting toast with jelly, oatmeal with sugar, and eggs for breakfast. Kitchen notified.
[2023-06-07 06:50] LABS: Glucose Point of Care 134 mg/dL (70-110)
[2023-06-07] MEDS: vancomycin 1,500 MG/300 ML PIGGYBACK 200 MG IV (09:05)
[2023-06-07] MEDS: hyDRALAzine 25 mg Tablet PO ×3 (09:06→20:04)
[2023-06-07] MEDS: clopidogrel 75 mg Tablet PO (09:06)
[2023-06-07 11:16] LABS: Bacillus cereus group Not Detected (NOT DETECT); Bacillus subtillis group Not Detected (NOT DETECT); Corynebacterium Not Detected (NOT DETECT); Cutibacterium acnes (P.acnes) Not Detected (NOT DETECT); Enterococcus Not Detected (NOT DETECT); Enterococcus faecalis Not Detected (NOT DETECT); Enterococcus faecium Not Detected (NOT DETECT); Lactobacillus species Not Detected (NOT DETECT); Listeria Not Detected (NOT DETECT); Listeria monocytogenes Not Detected (NOT DETECT); Micrococcus Not Detected (NOT DETECT); Pan Candida Not Detected (NOT DETECT); Pan Gram-Negative Not Detected (NOT DETECT); Staphylococcus epidermidis Not Detected (NOT DETECT); Staphylococcus lugdunensis Not Detected (NOT DETECT); Staphylococcus species Detected (NOT DETECT); Streptococcus agalactiae Not Detected (NOT DETECT); Streptococcus anginosus group Not Detected (NOT DETECT); Streptococcus pneumoniae Not Detected (NOT DETECT); Streptococcus pyogenes Not Detected (NOT DETECT); Streptococcus species Not Detected (NOT DETECT); mecA Detected (NOT DETECT); mecC Not Detected (NOT DETECT)
--- NOTE | 2023-06-07 14:08 | P.PN_ITS ---
Subjective 2 Subjective: seen today 1/2 bottles BCx positive for staph echo shows: LV systolic function is severely reduced with EF of 20 to 25%. Moderately hypokinetic RV Moderate eccenteric mitral regurgitation Mild to moderate regurgitation Trace tricuspid regurgitation Ascending aorta is mildly dilated with diameter of 3.66cm IVC is dilated Vitals/I&O/Wt Last Vital Signs Temp 98.2 F 06/07/23 07:19 Pulse 72 06/07/23 11:31 Resp 17 06/07/23 11:31 BP 172/98 06/07/23 11:31 Pulse Ox 93 06/07/23 11:31 O2 Del Method Nasal Cannula 06/07/23 11:31 O2 Flow Rate 2 06/07/23 08:35 06/06/23 06/07/23 06/07/23 22:59 06:59 14:59 Intake Total 250 / 250 50 / 300 830 / 830 Output Total 225 / 225 Balance 250 / 250 -175 / 75 830 / 830 Weight last 48 hrs Weight 116.658 kg Weight 116.12 kg Weight 95.254 kg Physical Exam 2 Narrative: General: Alert and awake oriented x3, Patient seen laying in bed, Laying flat with no respiratory distress, now on room air HEENT: Normocephalic, atraumatic, EOMI, Cardio: Regular rate rhythm, normal S1-S2, Respiratory: Clear to auscultation bilaterally, mild ronchi at bases GI: Abdomen soft, nontender, bowel sounds + Extremities: BLE Erythema noted Thickened toenails. Scrotal edema present. Erythematous scrotum, erythematous pannus. Generalized erythema b/l le but improved. Urinary Catheter Management: Barros: Cath Placed During This Visit: yes Reason for Continuing Indwelling Catheter: Acute Urinary Retention or Obstruction Urinary Catheter Date of Insertion: 06/06/23 Urinary Catheter Time of Insertion: 15:59 Data 06/07/23 03:59 06/07/23 03:59 Micro: Microbiology 06/06/23 14:16 Blood Culture - Preliminary Blood Staphylococcus species 06/06/23 11:40 Urine Culture - Preliminary Urine,Clean Catch Gram Negative Rods 06/06/23 14:10 Blood Culture - Preliminary Blood SPECIMEN COLLECTED A&P Assessment and plan (1) CHF (congestive heart failure): (2) Diastolic CHF: (3) Chronic kidney disease: (4) Sacral decubitus ulcer, stage IV: (5) Multiple sclerosis: (6) Altered mental status: Plan #Altered Mental Status 2/2 most likely UTI - Resolved #Bacteremia #UTI #Acute on Chronic congestive heart failure, diastolic #Generalized anasarca #Coronary artery disease status post stent November 2021 #Multiple sclerosis #Neurogenic bladder, self caths at home #CKD #Hyperlipidemia #Hypertension #Cellulitis b/l LE and abdomen area ? Placed on vancomycin and Zosyn at this time for sacral ulcer and UTI ? Interdry sheets between skin folds to be applied ? Nystatin powder for skin folds ? Continue hydralazine 25 3 times daily, losartan daily, aspirin, atorvastatin ? Continue Coreg - Check blood cultures, urine culture ? Place Barros catheter for accurate output and neurogenic bladder. Self caths at home. Pt interested in suprapubic catheter placement. Will need urology referall at discharge. ? Vitals every 4 hours ? Check CRP, CPK, CBC, BMP, magnesium in a.m. ? PT OT. ? Will need wound care at discharge. Continue wet to dry dressing for sacral area - Gen surg consult appreciated ? Check lactic acid - normal - Hold IV fluids - BNP 55809 - Pt does appear fluid overloaded at this time - Continue lasix 40 IV daily - General surgery consulted for sacral ulcer - Echo complete: LV systolic function is severely reduced with EF of 20 to 25%. Moderately hypokinetic RV Moderate eccenteric mitral regurgitation Mild to moderate regurgitation Trace tricuspid regurgitation Ascending aorta is mildly dilated with diameter of 3.66cm IVC is dilated Compared to prior echocardiogram from 2022, LV systolic function appears to have decreased significantly now. - May need further cardiac workup once bacteremia clears. Patient denies chest pain, shortness of breath. Full code Heparin SQ twice daily, SCDs Attestations 2 Medical Necessity Statement*: Requires continued hospitalization for mgmt of UTI and bacteremia Diagnoses CHF (congestive heart failure) I50.9 Diastolic CHF I50.30 Chronic kidney disease N18.9 Sacral decubitus ulcer, stage IV L89.154 Multiple sclerosis G35 Altered mental status R41.82
[2023-06-07] MEDS: atorvastatin 40 mg Tablet PO (17:40)
--- NOTE | 2023-06-07 19:17 | PC.NURSE ---
Patient asking for something to help him sleep. Dr. Rome notified.
[2023-06-07] MEDS: FUROsemide 10 mg/mL SDV 4mL 40 MG IVP (20:04)
[2023-06-07] MEDS: trazodone 50 mg Tablet 25 MG PO (20:04)
--- NOTE | 2023-06-07 20:31 | PC.NURSE ---
Patient had IV Lasix administered a few minutes ago. I flushed his IV prior to administering the Lasix and it appeared to flush well and be intact, however it did have coband wrapped on top of it. I administered the Lasix and when flushing after the Lasix, noticed the coband becoming wet. I undressed the IV completed and the IV had a slight leak. I am not sure if he received the total dose of the IV Lasix or not. Dr. Rome notified.
[2023-06-08] VITALS (9 sets, daily range): BP systolic 104–190; BP diastolic 62–92; PULSE 51–76; RESP 16–20; TEMP 36.3–36.7; O2SAT 90–97
[2023-06-08] MEDS: heparin 5,000 unit/mL INJ 1 mL 5000 UNIT SUBCUT ×2 (03:31→15:04)
[2023-06-08] MEDS: vancomycin 1,500 MG/300 ML PIGGYBACK 200 MG IV (03:31)
[2023-06-08 04:28] LABS: Basophils # 0.1 10^3/uL (0.0-0.1); Eosinophils # 0.4 10^3/uL (0.0-0.8); Eosinophils % 3.7 %; Hematocrit 37.5 % (37-53); Lymphocytes % 9.1 %; Mean Corpuscular HGB Conc 31.2 g/dL (30-55); Mean Corpuscular Hemoglobin 27.7 pg (27-33); Mean Corpuscular Volume 88.9 fl (82-101); Mean Platelet Volume 9.7 fL (7.4-10.4); Monocytes # 1.6 10^3/uL (0.2-0.9); Monocytes % 14.2 %; Neutrophils # 8.18 10^3/uL (1.8-7.7); Neutrophils % 71.6 %; Nucleated Red Blood Cells % 0 %; Platelet Count 234 10^3/cmm (157-399); Red Blood Count 4.22 10^6/uL (3.85-5.65); Red Cell Distribution Width 16.7 % (12.1-15.1); White Blood Count 11.43 10^3/uL (3.29-11.43)
[2023-06-08 04:42] LABS: Anion Gap 16.4 (5-19); Blood Urea Nitrogen 25 mg/dL (8-23); Calcium 8.3 mg/dL (8.5-10.5); Carbon Dioxide 26 mmol/L (22-29); Chloride 101 mmol/L (98-107); Creatinine Clr Calc Pharmacy 68.6206; Glomerular Filtration Rate 54.7 mL/min (90-130); Glucose 112 mg/dL (65-115); Osmolality Calculated 295 mOsm/kg (285-295); Potassium 3.4 mmol/L (3.5-5.1); Sodium 140 mmol/L (136-145)
[2023-06-08] MEDS: clopidogrel 75 mg Tablet PO (08:26)
[2023-06-08] MEDS: hyDRALAzine 25 mg Tablet PO ×3 (08:26→20:22)
[2023-06-08] MEDS: piperacillin-tazobactam 3.375 GM in sodium chloride 0.9% (plus) 50 ML IV ×3 (08:27→23:56)
--- NOTE | 2023-06-08 09:38 | P.PN_ITS ---
Subjective 2 Subjective: RN reported that patient's life partner said that patient uses the same urinary catheter to self cath and does not have very good hygiene. She was interested in suprapubic catheter however patient this morning says he is not interested in that anymore. Patient's urine culture grows E. coli which is pansensitive however also has 1 out of 4 bottles positive for staph in blood. Repeat cultures are pending at this time. Potassium 3.4 this morning. Urine output 4500 overnight. He says he feels better. He is on room air. Denies chest pain, shortness of breath. Vitals/I&O/Wt Last Vital Signs Temp 97.3 F L 06/08/23 09:10 Pulse 76 06/08/23 09:10 Resp 20 H 06/08/23 09:10 BP 190/92 06/08/23 09:10 Pulse Ox 90 06/08/23 09:10 O2 Del Method Nasal Cannula 06/08/23 09:10 O2 Flow Rate 2 06/08/23 08:28 06/07/23 06/08/23 06/08/23 22:59 06:59 14:59 Intake Total 290 / 1120 350 / 1470 720 / 720 Output Total 3650 / 3650 850 / 4500 Balance -3360 / -2530 -500 / -3030 720 / 720 Weight last 48 hrs Weight 113.653 kg Weight 116.658 kg Weight 116.12 kg Weight 95.254 kg Physical Exam 2 Narrative: General: Alert and awake oriented x3, Patient seen laying in bed, Laying flat with no respiratory distress, now on room air HEENT: Normocephalic, atraumatic, EOMI, Cardio: Regular rate rhythm, normal S1-S2, Respiratory: Clear to auscultation bilaterally, mild ronchi at bases GI: Abdomen soft, nontender, bowel sounds + Extremities: BLE Erythema noted Thickened toenails. Scrotal edema improving, erythematous scrotum, Generalized erythema b/l le but improved. Urinary Catheter Management: Barros: Cath Placed During This Visit: yes Reason for Continuing Indwelling Catheter: Acute Urinary Retention or Obstruction Urinary Catheter Date of Insertion: 06/06/23 Urinary Catheter Time of Insertion: 15:59 Data 06/08/23 03:15 06/08/23 03:15 Micro: Microbiology 06/07/23 15:30 Blood Culture - Preliminary Blood SPECIMEN COLLECTED 06/07/23 15:30 Blood Culture - Preliminary Blood SPECIMEN COLLECTED 06/06/23 14:10 Blood Culture - Preliminary Blood NEGATIVE TO DATE 06/06/23 14:16 Blood Culture - Preliminary Blood Staphylococcus species 06/06/23 11:40 Urine Culture - Preliminary Urine,Clean Catch Gram Negative Rods A&P Assessment and plan (1) CHF (congestive heart failure): (2) Diastolic CHF: (3) Chronic kidney disease: (4) Sacral decubitus ulcer, stage IV: (5) Multiple sclerosis: (6) Altered mental status: Plan #Altered Mental Status 2/2 most likely UTI - Resolved #Bacteremia #UTI #Acute on Chronic congestive heart failure, diastolic #Generalized anasarca #Coronary artery disease status post stent November 2021 #Multiple sclerosis #Neurogenic bladder, self caths at home #CKD #Hyperlipidemia #Hypertension #Cellulitis b/l LE and abdomen area #Chronic osteomyelitis of sacral area ? Placed on vancomycin and Zosyn at this time for sacral ulcer and UTI ? Interdry sheets between skin folds to be applied ? Nystatin powder for skin folds ? Continue hydralazine 25 3 times daily, losartan daily, aspirin, atorvastatin ? Continue Coreg - Check blood cultures, urine culture. Urine culture positive for E. coli which is pansensitive, initial blood culture 1 out of 4 bottles positive for Staphylococcus species. ? Repeat blood cultures obtained 06/06 are pending at this time. ? Place Barros catheter for accurate output and neurogenic bladder. Self caths at home. Pt interested in suprapubic catheter placement. Will need urology referall at discharge. ? Vitals every 4 hours ? Check CRP, CPK, CBC, BMP, magnesium in a.m. ? PT OT. ? Will need wound care at discharge. Continue wet to dry dressing for sacral area - Gen surg consult appreciated ? Check lactic acid - normal - Hold IV fluids - BNP 57173 -Appears slightly overloaded. -Will continue Lasix 40 IV daily. - General surgery consulted for sacral ulcer - Echo complete: LV systolic function is severely reduced with EF of 20 to 25%. Moderately hypokinetic RV Moderate eccenteric mitral regurgitation Mild to moderate regurgitation Trace tricuspid regurgitation Ascending aorta is mildly dilated with diameter of 3.66cm IVC is dilated Compared to prior echocardiogram from 2022, LV systolic function appears to have decreased significantly now. - May need further cardiac workup once bacteremia clears or is ruled out. Patient denies chest pain, shortness of breath. ? I would continue vancomycin and Zosyn for now till blood culture finalizes. Full code Heparin SQ twice daily, SCDs Attestations 2 Medical Necessity Statement*: Requires continued hospitalization for mgmt of UTI and bacteremia Diagnoses CHF (congestive heart failure) I50.9 Diastolic CHF I50.30 Chronic kidney disease N18.9 Sacral decubitus ulcer, stage IV L89.154 Multiple sclerosis G35 Altered mental status R41.82
[2023-06-08] MEDS: acetaminophen 325 mg Tablet 650 MG PO ×2 (11:40→17:39)
[2023-06-08] MEDS: tizanidine 4 mg Tablet PO ×2 (11:41→17:39)
--- NOTE | 2023-06-08 15:33 | PC.NURSE ---
wound care provided to sacrum per order
[2023-06-08] MEDS: ibuprofen 200 mg Tablet 400 MG PO (15:53)
[2023-06-08] MEDS: atorvastatin 40 mg Tablet PO (17:39)
[2023-06-08] MEDS: FUROsemide 10 mg/mL SDV 4mL 40 MG IVP (20:04)
[2023-06-08 20:51] LABS: Vancomycin Trough 20.6 ug/mL (10-15)
[2023-06-08] MEDS: vancomycin 1,250 MG/250 ML PIGGYBACK 200 MG IV (21:43)
[2023-06-09] VITALS (7 sets, daily range): BP systolic 140–180; BP diastolic 76–95; PULSE 49–78; RESP 18–19; TEMP 36.4–36.6; O2SAT 84–98
[2023-06-09] MEDS: acetaminophen 325 mg Tablet 650 MG PO ×2 (01:10→17:23)
[2023-06-09] MEDS: tizanidine 4 mg Tablet PO (01:10)
[2023-06-09] MEDS: heparin 5,000 unit/mL INJ 1 mL 5000 UNIT SUBCUT ×2 (02:12→13:35)
[2023-06-09 05:45] LABS: Basophils # 0.1 10^3/uL (0.0-0.1); Basophils % 0.9 %; Eosinophils # 0.7 10^3/uL (0.0-0.8); Hematocrit 36.6 % (37-53); Lymphocytes % 9.8 %; Mean Corpuscular HGB Conc 30.1 g/dL (30-55); Mean Corpuscular Hemoglobin 27.5 pg (27-33); Mean Corpuscular Volume 91.5 fl (82-101); Mean Platelet Volume 9.6 fL (7.4-10.4); Monocytes # 1.3 10^3/uL (0.2-0.9); Neutrophils # 6.71 10^3/uL (1.8-7.7); Nucleated Red Blood Cells % 0 %; Platelet Count 201 10^3/cmm (157-399); Red Cell Distribution Width 16.9 % (12.1-15.1); White Blood Count 9.72 10^3/uL (3.29-11.43)
[2023-06-09 06:07] LABS: Anion Gap 13.5 (5-19); Blood Urea Nitrogen 24 mg/dL (8-23); Carbon Dioxide 28 mmol/L (22-29); Chloride 100 mmol/L (98-107); Creatinine Clr Calc Pharmacy 62.8725; Glomerular Filtration Rate 50.2 mL/min (90-130); Glucose 111 mg/dL (65-115); Osmolality Calculated 291 mOsm/kg (285-295); Potassium 3.5 mmol/L (3.5-5.1); Sodium 138 mmol/L (136-145)
[2023-06-09] MEDS: piperacillin-tazobactam 3.375 GM in sodium chloride 0.9% (plus) 50 ML IV ×3 (08:58→23:37)
[2023-06-09] MEDS: hyDRALAzine 25 mg Tablet PO ×3 (08:59→16:00)
[2023-06-09] MEDS: clopidogrel 75 mg Tablet PO (08:59)
--- NOTE | 2023-06-09 11:17 | PC.CHAP ---
Pastoral Care Encounter/Spiritual Assessment Type of Contact [] Declined computer forwarding system markup clerk visit [] Patient/Family/Request visit [] Outpatient visit [] Follow-up visit [] Physician referral [] Code/Alert [x] Routine visit [] Staff referral [] Actively dying [] Patient sleeping [x] Family support [] [] Out of room [] Palliative care [] [] Receiving care in room [] Pre-surgical visit [] Trauma [] Long length of stay [] ICU visit [] Other: Relational/Emotional Strength [] Patient feels connected with others/family/visitors/staff [] Distress [] Loneliness/isolation [] Abandonment Spirituality of Patient [x] Person of Shavonne [] Attends Amish of their [place] [x] Believes in Prayer [] Reads Bible or Jain materials [] There are Spiritual issues to be addressed Slab Depiler Operator Interventions [x] Prayer [x] Active listening [] Non-anxious presence [] Spiritual/emotional support [] Crisis/trauma care [] Spiritual counseling [] Bereavement support [] Provided bereavement packet [] Provided Bible/devotional materials [] Provided toy/stuffed animal, coloring book to patient or family member [] Provided Communion [] Anointing/[place] [] Salvation [x] Completed spiritual assessment [] Other: Impact on Illness or Injury [] Angry [] Fearful [] Anxious [] Often cries [] Exhaustion [] Unable to work [] Unable to attend spiritism [] Unable to walk/stand [] Unable to read [] Unable to drive [] Unable to eat/drink [] Unable to sleep [] Unable to be with family [] Patient intubated [] Other: Summary 5 min Time spent with patient
[2023-06-09] MEDS: nicotine 21 mg Patch 1 PATCH TRANSDERMA (12:13)
[2023-06-09] MEDS: metoprolol succinate ER (24 HR) 25 mg Tablet PO (12:13)
[2023-06-09] MEDS: vancomycin 1,250 MG/250 ML PIGGYBACK 200 MG IV (15:04)
--- NOTE | 2023-06-09 15:32 | P.PN_ITS ---
Subjective 2 Subjective: Hospital course, labs appreciated. Patient seen sitting up in bed. Denies any nausea vomiting, headache. Mildly agitated as he wants to go home. Discussed the need for staying in hospitalization further for management with positive blood culture, further ACS workup. Patient is agreeable for staying for now. Denies any nausea, vomiting, headache. States he has been taking care of his wound by himself. Vitals/I&O/Wt Last Vital Signs Temp 97.5 F L 06/09/23 08:00 Pulse 67 06/09/23 12:00 Resp 18 06/09/23 12:00 BP 180/81 06/09/23 12:00 Pulse Ox 98 06/09/23 12:00 O2 Del Method Nasal Cannula 06/09/23 12:00 O2 Flow Rate 2 06/08/23 20:00 06/09/23 06/09/23 06/09/23 06:59 14:59 22:59 Intake Total 300 / 1840 1010 / 1010 Output Total 700 / 1700 Balance -400 / 140 1010 / 1010 Weight last 48 hrs Weight 113.653 kg Physical Exam 2 Narrative: General: Alert and awake oriented x3, Patient seen laying in bed, Laying flat with no respiratory distress, now on 2 L oxygen supplementation HEENT: Normocephalic, atraumatic, EOMI, Cardio: Regular rate rhythm, normal S1-S2, Respiratory: Clear to auscultation bilaterally, mild ronchi at bases GI: Abdomen soft, nontender, bowel sounds + Extremities: BLE Erythema noted Thickened toenails. Scrotal edema improving, erythematous scrotum, Generalized erythema b/l le but improved. Urinary Catheter Management: Barros: Cath Placed During This Visit: yes Reason for Continuing Indwelling Catheter: Acute Urinary Retention or Obstruction Urinary Catheter Date of Insertion: 06/06/23 Urinary Catheter Time of Insertion: 15:59 Data 06/09/23 04:53 06/09/23 04:53 Micro: Microbiology 06/07/23 15:30 Blood Culture - Preliminary Blood NEGATIVE TO DATE 06/07/23 15:30 Blood Culture - Preliminary Blood NEGATIVE TO DATE 06/06/23 11:40 Urine Culture - Final Urine,Clean Catch Escherichia coli A&P Assessment and plan (1) Systolic congestive heart failure: (2) UTI (urinary tract infection): (3) Bacteremia due to Staphylococcus: (4) Ischemic cardiomyopathy: (5) CHF (congestive heart failure): (6) Chronic kidney disease: (7) Sacral decubitus ulcer, stage IV: (8) Altered mental status: (9) Multiple sclerosis: Plan #Altered Mental Status 2/2 most likely UTI - Resolved #Bacteremia?staphylococcal #UTI?urine culture growing E. coli #Acute on Chronic congestive heart failure #Generalized anasarca #Coronary artery disease status post stent November 2021 #Multiple sclerosis #Neurogenic bladder?self-catheterization #CKD #Hyperlipidemia #Hypertension #Cellulitis b/l LE and abdomen area #Chronic osteomyelitis of sacral area Echocardiogram done shows a new EF of 25%, moderately hypokinetic RV, moderate eccentric MR, mild to moderate MR, dilated IVC. Patient's LV function is poor than before. Will need further ACS workup. Has history of CAD and PCI in 2021 to LAD. Plan for stress test in AM. N.p.o. after midnight. Patient denies any chest pain. Continue with home dose of Plavix and statin. Appreciate A1c, lipid panel recently. Staphylococcal bacteremia: Cannot rule out contaminant. 1 out of 4 bottles positive for admission. Will await identification and sensitivities. Repeat blood culture sent on 06/06 so far negative. Continue with empiric IV vancomycin and Zosyn for now. Zosyn will also cover for UTI from E. coli. Sensitivities of E. coli appreciated. Complicated UTI and history of neurogenic bladder with self-catheterization. Congestive heart failure: Patient more than so euvolemic. Developing SUSHILA with creatinine up to 1.4. Baseline creatinine around 1. Medical reconciliation done for nephrotoxic drugs. Hold off on any further diuresis. Monitor for fluid overload. Goal blood pressure less than 140/90 mmHg. Blood pressure slightly elevated. Increase home dose of hydralazine to 50 mg 3 times daily. Restart home dose of Coreg at 6.25 mg twice daily. Uptitrate as for goal blood pressures. Decubitus ulcer: Appreciate surgical recommendations. Seems to be improving. Continue with wet to dry wound care. Patient will need to continue follow-up with wound care as an outpatient. Full code Carb consistent diet Protonix for PUD prophylaxis Heparin 5000 every 12 hourly for DVT prophylaxis Attestations 2 Medical Necessity Statement*: Requires further hospitalization for management of congestive heart failure with new low EF while further CAD workup is done, staphylococcal bacteremia, SUSHILA Diagnoses Systolic congestive heart failure I50.20 UTI (urinary tract infection) N39.0 Bacteremia due to Staphylococcus R78.81; B95.8 Ischemic cardiomyopathy I25.5 CHF (congestive heart failure) I50.9 Chronic kidney disease N18.9 Sacral decubitus ulcer, stage IV L89.154 Altered mental status R41.82 Multiple sclerosis G35
--- NOTE | 2023-06-09 15:42 | ECG_ITS ---
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 Interpretive Statements NAME OF STUDY: LEXISCAN SESTAMIBI STRESS TEST INDICATION: NEW LOW EF; HX OF CAD; POST PCI PROCEDURE: At the baseline, the EKG revealed normal sinus rhythm with borderline first-degree AV block, right bundle branch block, occasional supraventricular and ventricular ectopics. The baseline heart was 76 bpm with a blood pressue of 178/106 mm of Hg Lexiscan was infused over a period of 20 seconds. A total of 0.4 milligrams of Lexiscan was infused. The stress phase was continued for a total of 5 minutes. Heart rate at the end of the stress phase was 78 bpm with a blood pressure 180/85 mm of Hg. The EKG at the peak infusion revealed more frequent PVCs.. Sestamibi was injected 20 seconds after the Lexiscan infusion. Heart rate at the end of the recovery phase was 79 bpm with a blood pressure of 181/92 mm of Hg. CONCLUSION: 1. No significant EKG changes with the LexiScan infusion 2. No LexiScan induced chest pain. More frequent PVCs were noted during the Lexiscan infusion 3. Normal blood pressure and heart rate response 4. Sestamibi/sestamibi perfusion scan pending; see separate report. Electronically Signed On 06-14-2023 20:21:38 CONTRACT SERVICEMAN by Debora Sevilla M.D. [email or web address]
[2023-06-09] MEDS: tizanidine 4 mg Tablet 2 MG PO (17:23)
[2023-06-09] MEDS: atorvastatin 40 mg Tablet PO (17:23)
--- NOTE | 2023-06-09 18:29 | PC.NURSE ---
This RN cleans pt and takes off tele sticker revealing a stage 2 pressure injury in the circular pattern on right abdomen. MD notified. All other cardiac stickers removed without skin breakdown.
[2023-06-09] MEDS: hyDRALAzine 25 mg Tablet 50 MG PO (21:09)
[2023-06-10] VITALS (7 sets, daily range): BP systolic 148–170; BP diastolic 60–96; PULSE 60–92; RESP 17–22; TEMP 36.4–36.7; O2SAT 90–98
[2023-06-10] MEDS: heparin 5,000 unit/mL INJ 1 mL 5000 UNIT SUBCUT ×2 (03:00→15:33)
[2023-06-10 06:37] LABS: Basophils # 0.1 10^3/uL (0.0-0.1); Basophils % 1.1 %; Eosinophils # 0.9 10^3/uL (0.0-0.8); Hematocrit 39.8 % (37-53); Lymphocytes # 0.9 10^3/uL (0.8-4.8); Lymphocytes % 7.8 %; Mean Corpuscular HGB Conc 30.7 g/dL (30-55); Mean Corpuscular Hemoglobin 27.7 pg (27-33); Mean Corpuscular Volume 90.2 fl (82-101); Mean Platelet Volume 9.7 fL (7.4-10.4); Monocytes # 1.4 10^3/uL (0.2-0.9); Monocytes % 11.6 %; Neutrophils # 8.28 10^3/uL (1.8-7.7); Neutrophils % 71.2 %; Nucleated Red Blood Cells % 0 %; Platelet Count 213 10^3/cmm (157-399); Red Blood Count 4.41 10^6/uL (3.85-5.65); White Blood Count 11.63 10^3/uL (3.29-11.43)
[2023-06-10 06:58] LABS: Alanine Aminotransferase 14 U/L (0-41); Albumin Level 3.3 g/dL (3.5-5.2); Alkaline Phosphatase 104 U/L (40-130); Aspartate Amino Transferase 9 U/L (0-40); Blood Urea Nitrogen 22 mg/dL (8-23); Calcium 8.4 mg/dL (8.5-10.5); Carbon Dioxide 25 mmol/L (22-29); Chloride 100 mmol/L (98-107); Creatinine Clr Calc Pharmacy 63.1841; Globulin 3.7 g/dL (1.3-4.6); Glomerular Filtration Rate 50.2 mL/min (90-130); Glucose 103 mg/dL (65-115); Osmolality Calculated 292 mOsm/kg (285-295); Sodium 139 mmol/L (136-145); Total Bilirubin 0.8 mg/dL (0.15-1.2)
[2023-06-10 07:02] LABS: Anion Gap 17.2 (5-19); Potassium 3.2 mmol/L (3.5-5.1)
--- NOTE | 2023-06-10 08:00 | NMCV_ITS ---
NM joshua perf SPECT r/s* [id number] Armando Coleman Age: 68 Gender: M : 1955 Exam Date: 06/10/2023 08:00 Ordering Phys: Fernando Pace MD Technologist: CIRILO Hernandez Exam Location: [facility] Indications: CHEST PAIN STRESS TEST Please see separate stress test report in [facility] for full findings IMAGE PROTOCOL Rest/Stress 1 Lexiscan Day Radiopharmaceutical Dose (mCi) Administration Site Administered by Rest: Tc-99m 10.9 IV CIRILO Harry Sestamibi Stress:Tc-99m 33.0 IV CIRILO Harry Sestamibi Rest: 10-Jun-2023 60 Discovery 630 Stress: 10-Jun-2023 30 Discovery 630 0.4mg Lexiscan. Supine position only as patient was unable to lay prone. SPECT RESULTS Technical Quality: Excellent Raw Data Analysis: Normal Image Corrections: No attenuation or motion correction applied Summed Stress Score: 23 Summed Rest Score: 22 Summed Difference Score: 2 PERFUSION FINDINGS A large area of moderate to severely decreased to tracer uptake involving the inferior, inferolateral, anterolateral and apical regions with a subtle areas of reversibility in the anterolateral and inferolateral regions FUNCTIONAL RESULTS (calculated via Gated SPECT) Stress Image LV EF (%): 29 Stress EDV (mL):308 TID: 0.89 Stress ESV (mL):218 FUNCTIONAL FINDINGS: Segmental wall motion analysis revealed severe diffuse hypokinesia of the left ventricle IMPRESSIONS 1. Myocardial perfusion imaging revealing large areas of persistent decreased tracer uptake involving the inferior, inferolateral, anterolateral and apical regions suggesting extensive myocardial scarring, mostly in the distribution of the right coronary artery and left circumflex artery with very small areas of possible trevon-infarction ischemia. 2. Diminished LV ejection fraction of 29%. 3. Segmental wall motion analysis revealing diffuse hypokinesia of the left ventricle 4. Markedly dilated LV cavity with an end-systolic volume of 218 mL No similar previous studies are available for comparison Dr Debora Sevilla MD FAC (Electronically Signed) Final Date: 10 June 2023 11:34 S
[2023-06-10] MEDS: regadenoson 0.4 Mg/5 ml Syringe 0.400000000000000022 MG IVP (08:19)
[2023-06-10] MEDS: hyDRALAzine 25 mg Tablet 50 MG PO ×3 (10:22→20:22)
[2023-06-10] MEDS: tizanidine 4 mg Tablet 2 MG PO ×2 (10:22→15:33)
[2023-06-10] MEDS: metoprolol succinate ER (24 HR) 25 mg Tablet PO (10:22)
[2023-06-10] MEDS: pantoprazole DR 40 mg Tablet PO (10:22)
[2023-06-10] MEDS: piperacillin-tazobactam 3.375 GM in sodium chloride 0.9% (plus) 50 ML IV ×2 (10:23→15:33)
[2023-06-10] MEDS: nicotine 21 mg Patch 1 PATCH TRANSDERMA (10:23)
[2023-06-10] MEDS: clopidogrel 75 mg Tablet PO (10:23)
[2023-06-10] MEDS: potassium chloride ER 20 mEq Tablet 40 MEQ PO (12:50)
[2023-06-10] MEDS: FUROsemide 10 mg/mL SDV 4mL 40 MG IVP (12:50)
--- NOTE | 2023-06-10 13:08 | P.PN_ITS ---
Subjective 2 Subjective: No acute events overnight. Patient has remained hemodynamically stable and afebrile. Today morning seen after the stress test. He is complaining of mild difficulty in breathing and feeling hot requiring plan to be blown into his face. Becomes better after starting oxygen supplementation. Patient denies any nausea, vomiting, headache or chest pains. Appreciate urine output. Vitals/I&O/Wt Last Vital Signs Temp 97.5 F L 06/10/23 12:00 Pulse 81 06/10/23 12:00 Resp 22 H 06/10/23 12:00 BP 170/96 06/10/23 12:00 Pulse Ox 90 06/10/23 12:00 O2 Del Method Room Air 06/10/23 12:00 O2 Flow Rate 3 06/09/23 20:22 06/09/23 06/10/23 06/10/23 22:59 06:59 14:59 Intake Total 1020 / 2030 170 / 2200 960 / 960 Output Total 800 / 800 600 / 1400 Balance 220 / 1230 -430 / 800 960 / 960 Weight last 48 hrs Weight 114.759 kg Physical Exam 2 Narrative: General: Alert and awake oriented x3, Patient seen laying in bed, Laying flat with no respiratory distress, now on 2 L oxygen supplementation HEENT: Normocephalic, atraumatic, EOMI, Cardio: Regular rate rhythm, normal S1-S2, Respiratory: Clear to auscultation bilaterally, mild ronchi at bases GI: Abdomen soft, nontender, bowel sounds + Extremities: BLE Erythema noted Thickened toenails. Scrotal edema improving, erythematous scrotum, Generalized erythema b/l le but improved. Urinary Catheter Management: Barros: Cath Placed During This Visit: yes Reason for Continuing Indwelling Catheter: Assist Healing of Perineal & Sacral Wounds- Incontinent Patients Urinary Catheter Date of Insertion: 06/06/23 Urinary Catheter Time of Insertion: 15:59 Data 06/10/23 05:56 06/10/23 05:56 Micro: Microbiology 06/06/23 14:16 Blood Culture - Preliminary Blood Staphylococcus warneri A&P Assessment and plan (1) Systolic congestive heart failure: (2) UTI (urinary tract infection): (3) Bacteremia due to Staphylococcus: (4) Ischemic cardiomyopathy: (5) CHF (congestive heart failure): (6) Chronic kidney disease: (7) Sacral decubitus ulcer, stage IV: (8) Altered mental status: (9) Multiple sclerosis: Plan #Altered Mental Status 2/2 most likely UTI - Resolved #Bacteremia?staphylococcal #UTI?urine culture growing E. coli #Acute on Chronic congestive heart failure #Generalized anasarca #Coronary artery disease status post stent November 2021 #Multiple sclerosis #Neurogenic bladder?self-catheterization #CKD #Hyperlipidemia #Hypertension #Cellulitis b/l LE and abdomen area #Chronic osteomyelitis of sacral area Echocardiogram done shows a new EF of 25%, moderately hypokinetic RV, moderate eccentric MR, mild to moderate MR, dilated IVC. Patient's LV function is poor than before. Appreciate Lexiscan stress test results which is consistent with old infarct with minimal trevon-infarct ischemia. Patient would benefit with medical management. Patient would benefit with better blood pressure control and regular follow-up as an outpatient. Denies any chest pain. Continue with home dose of Plavix and statin. Appreciate A1c, lipid panel recently. Staphylococcal bacteremia: 1 out of 4 bottles positive on admission. Most likely a contaminant. Repeat blood culture sent on 06/06 so far negative. Continue with empiric IV vancomycin and Zosyn for now. Zosyn will also cover for UTI from E. coli. Sensitivities of E. coli appreciated. Will finish a 5-day course of Zosyn. Complicated UTI and history of neurogenic bladder with self-catheterization. Congestive heart failure: Patient more than so euvolemic. Developing SUSHILA with creatinine up to 1.4. Baseline creatinine around 1. Cannot rule out patient's dry creatinine to be around 1.4 Medical reconciliation done for nephrotoxic drugs. Patient has symptoms of congestive heart failure today. Restart IV diuretics with Lasix at 40 mg daily. Most likely will repeat dose of Lasix later in the day as per the urine output. Goal blood pressure less than 140/90 mmHg. Blood pressure slightly elevated. Continue with increased dose of hydralazine 50 mg 3 times a day, home dose of Coreg 6.25 mg twice daily. Uptitrate as for goal blood pressures. Decubitus ulcer: Appreciate surgical recommendations. Seems to be improving. Continue with wet to dry wound care. Patient will need to continue follow-up with wound care as an outpatient. Full code Carb consistent diet Protonix for PUD prophylaxis Heparin 5000 every 12 hourly for DVT prophylaxis Attestations 2 Medical Necessity Statement*: Requires further hospitalization for management of congestive heart failure leading to hypoxic respiratory failure while patient undergoes further ACS workup, staphylococcal bacteremia most likely contaminant Diagnoses Systolic congestive heart failure I50.20 UTI (urinary tract infection) N39.0 Bacteremia due to Staphylococcus R78.81; B95.8 Ischemic cardiomyopathy I25.5 CHF (congestive heart failure) I50.9 Chronic kidney disease N18.9 Sacral decubitus ulcer, stage IV L89.154 Altered mental status R41.82 Multiple sclerosis G35
[2023-06-10] MEDS: acetaminophen 325 mg Tablet 650 MG PO (15:34)
[2023-06-10] MEDS: atorvastatin 40 mg Tablet PO (16:52)
[2023-06-10] MEDS: vancomycin 1,500 MG/300 ML PIGGYBACK 200 MG IV (20:23)
[2023-06-11] VITALS: BP 176/85; PULSE 73; RESP 20; O2SAT 92
[2023-06-11] MEDS: piperacillin-tazobactam 3.375 GM in sodium chloride 0.9% (plus) 50 ML IV ×2 (00:32→08:09)
[2023-06-11] MEDS: heparin 5,000 unit/mL INJ 1 mL 5000 UNIT SUBCUT (03:42)
[2023-06-11 04:55] VITALS: BP 167/80; PULSE 73; RESP 19; O2SAT 92
[2023-06-11 05:31] LABS: Basophils # 0.1 10^3/uL (0.0-0.1); Basophils % 1.1 %; Eosinophils # 0.8 10^3/uL (0.0-0.8); Eosinophils % 6.7 %; Hematocrit 39.1 % (37-53); Lymphocytes # 0.9 10^3/uL (0.8-4.8); Lymphocytes % 7.8 %; Mean Corpuscular HGB Conc 30.7 g/dL (30-55); Mean Corpuscular Hemoglobin 27.3 pg (27-33); Mean Corpuscular Volume 89.1 fl (82-101); Mean Platelet Volume 10.1 fL (7.4-10.4); Monocytes # 1.3 10^3/uL (0.2-0.9); Monocytes % 10.9 %; Neutrophils % 73.2 %; Nucleated Red Blood Cells % 0 %; Platelet Count 208 10^3/cmm (157-399); Red Blood Count 4.39 10^6/uL (3.85-5.65); Red Cell Distribution Width 17.1 % (12.1-15.1); White Blood Count 11.63 10^3/uL (3.29-11.43)
[2023-06-11 06:04] LABS: Alanine Aminotransferase 13 U/L (0-41); Albumin Level 3.4 g/dL (3.5-5.2); Alkaline Phosphatase 103 U/L (40-130); Anion Gap 17.3 (5-19); Aspartate Amino Transferase 9 U/L (0-40); Blood Urea Nitrogen 22 mg/dL (8-23); Calcium 8.5 mg/dL (8.5-10.5); Carbon Dioxide 24 mmol/L (22-29); Chloride 103 mmol/L (98-107); Creatinine Clr Calc Pharmacy 58.9718; Globulin 3.7 g/dL (1.3-4.6); Glomerular Filtration Rate 46.4 mL/min (90-130); Glucose 166 mg/dL (65-115); Osmolality Calculated 299 mOsm/kg (285-295); Potassium 3.3 mmol/L (3.5-5.1); Sodium 141 mmol/L (136-145); Total Bilirubin 0.8 mg/dL (0.15-1.2); Total Protein 7.1 g/dL (6.6-8.7)
[2023-06-11 07:19] VITALS: BP 157/92; PULSE 82; RESP 20; TEMP 36.4; O2SAT 96
[2023-06-11 09:02] VITALS: PULSE 68; RESP 20; O2SAT 85
[2023-06-11] MEDS: nicotine 21 mg Patch 1 PATCH TRANSDERMA (09:37)
[2023-06-11] MEDS: FUROsemide 10 mg/mL SDV 10mL 60 MG IVP (09:37)
[2023-06-11] MEDS: pantoprazole DR 40 mg Tablet PO (09:38)
[2023-06-11] MEDS: potassium chloride ER 20 mEq Tablet 40 MEQ PO (09:40)
[2023-06-11] MEDS: metoprolol succinate ER (24 HR) 25 mg Tablet PO (09:40)
[2023-06-11] MEDS: clopidogrel 75 mg Tablet PO (09:40)
--- NOTE | 2023-06-11 11:09 | P.DS_ITS ---
Discharge Providers Date of Admission: 06/06/23 14:34 Date of Discharge: June 11, 2023 Attending Provider at Admission: Jane Sargent MD Attending Provider at Discharge: Fernando Pace MD Consults: Surgery: Dr. Chan Grady Primary Care Provider: Kylie Vogel Diagnoses at Discharge Discharge Diagnosis (1) Systolic congestive heart failure: Status: Acute (2) UTI (urinary tract infection): Status: Acute (3) Bacteremia due to Staphylococcus: Status: Acute (4) Ischemic cardiomyopathy: Status: Acute (5) CHF (congestive heart failure): Status: Acute (6) Chronic kidney disease: Status: Acute (7) Sacral decubitus ulcer, stage IV: Status: Acute (8) Altered mental status: Status: Acute (9) Multiple sclerosis: Status: Acute Reason for Visit Reason for Visit: uti Brief History: History as per HPI: Armando Coleman is a 68 year old male With past medical history of cardiomyopathy, frequent falls, chronic wounds currently following up with wound care clinic, multiple sclerosis, neurogenic bladder self catheterizes, hyperlipidemia, hypertension, ischemic cardiomyopathy, history of NSTEMI, congestive heart failure presented to the hospital today with altered mental status. He states he does not remember what happened and he just found himself in the hospital. He says I guess the ambulance brought him in. There is no family at bedside. He says maybe family will be coming later but he does not know who is coming in on him. He also has not seen. He says he feels his face swelled up however otherwise unable to give me any concrete history. He is a very poor historian. Denies chest pain, abdominal pain, nausea vomiting diarrhea. Of note patient has had Enterococcus VRE, staph in sacral ulcer in the past and has had required debridement. Hospital Course Hospital Course Patient was admitted to the hospital further evaluation and management of symptoms concerning for congestive heart failure, altered mental status in setting of possible UTI. He was started on broad-spectrum antibiotics and IV diuretics. Echocardiogram was done which showed a new low EF of 20?25%. Patient responded well to the treatment and was back to his baseline mentation within 24 hours. Surgery was consulted who recommended continue wound care for decubitus ulcer. Patient had 1 out of 4 bottles positive from admission for Staphylococcus. Repeat blood cultures have been so far negative. Positive blood cultures are thought to be contaminant. For new decrease in the EF and new congestive heart failure patient underwent cardiac stress test for further workup for ACS which showed large scarred/infarct area of the LV with minimal trevon-infarct ischemia. Further plan of treatment with possibility of cardiac angiogram versus medical management was discussed in detail with the patient and he wanted to proceed with medical management. Patient was continued on IV diuresis. Patient would benefit for further IV diuresis given concerns for congestive heart failure but he was adamant on discharge home and wanted to continue with oral diuretics. Patient was counseled in detail about high risk of readmissions, even but he was persistent and adamant about being dischar ge. He was even advised for an oxygen evaluation prior to discharge but he declined. Patient was counseled about fluid restrictions to less than 1500 cc and salt restriction which he has agreed upon. He should follow-up with his primary care provider within 1 week and with the wound care clinic within 1 week as well. Physical Exam Narrative: General: Alert and awake oriented x3, Patient seen laying in bed, Laying flat with no respiratory distress, now on 2 L oxygen supplementation HEENT: Normocephalic, atraumatic, EOMI, Cardio: Regular rate rhythm, normal S1-S2, Respiratory: Clear to auscultation bilaterally, mild ronchi at bases GI: Abdomen soft, nontender, bowel sounds + Extremities: BLE Erythema noted Thickened toenails. Scrotal edema improving, erythematous scrotum, Generalized erythema b/l le but improved. Urinary Catheter Management: Barros: Cath Placed During This Visit: yes Reason for Continuing Indwelling Catheter: Assist Healing of Perineal & Sacral Wounds- Incontinent Patients Urinary Catheter Date of Insertion: 06/06/23 Urinary Catheter Time of Insertion: 15:59 Discharge Data Studies Completed and Pending Completed Studies During Hospitalization Category Date Time Status CT kidney stone [id number] Stat Cat Scan 06/06/23 12:06 Completed Sestamibi Stress Test Request Routine Exams 06/09/23 15:42 Draft XR chest 1V portable [id number] Stat Exams 06/06/23 10:52 Completed NM joshua perf SPECT r/s* [id number] Routine Nuc Med 06/10/23 08:00 Completed CV. echo complete* [id number] Routine Ultrasound 06/07/23 06:00 Completed Pending at discharge Category Date Time Status Blood Culture Stat Lab 06/06/23 14:16 Results Blood Culture Stat Lab 06/07/23 15:30 Results Complete Blood Count w/Auto AM LABS Lab 06/12/23 04:00 Ordered Complete Blood Count w/Auto AM LABS Lab 06/13/23 04:00 Ordered Complete Blood Count w/Auto AM LABS Lab 06/14/23 04:00 Ordered Comprehensive Metabolic Panel AM LABS Lab 06/12/23 04:00 Ordered Comprehensive Metabolic Panel AM LABS Lab 06/13/23 04:00 Ordered Comprehensive Metabolic Panel AM LABS Lab 06/14/23 04:00 Ordered Laboratory Results WBC 11.63 10^3/uL (3.29-11.43) H 06/11/23 04:56 RBC 4.39 10^6/uL (3.85-5.65) 06/11/23 04:56 Hgb 12.00 g/dL (11.27-16.99) 06/11/23 04:56 Hct 39.1 % (37-53) 06/11/23 04:56 MCV 89.1 fl (82-101) 06/11/23 04:56 MCH 27.3 pg (27-33) 06/11/23 04:56 MCHC 30.7 g/dL (30-55) 06/11/23 04:56 RDW 17.1 % (12.1-15.1) H 06/11/23 04:56 Plt Count 208 10^3/cmm (157-399) 06/11/23 04:56 MPV 10.1 fL (7.4-10.4) 06/11/23 04:56 Neut % (Auto) 73.2 % 06/11/23 04:56 Lymph % (Auto) 7.8 % 06/11/23 04:56 [place] % (Auto) 10.9 % 06/11/23 04:56 Eos % (Auto) 6.7 % 06/11/23 04:56 Baso % (Auto) 1.1 % 06/11/23 04:56 Neut # (Auto) 8.50 10^3/uL (1.8-7.7) H 06/11/23 04:56 Lymph # (Auto) 0.9 10^3/uL (0.8-4.8) 06/11/23 04:56 [place] # (Auto) 1.3 10^3/uL (0.2-0.9) H 06/11/23 04:56 Eos # (Auto) 0.8 10^3/uL (0.0-0.8) 06/11/23 04:56 Baso # (Auto) 0.1 10^3/uL (0.0-0.1) 06/11/23 04:56 Nucleated RBC % (auto) 0 % 06/11/23 04:56 Nucleated RBCs # 0.0 /100WBC 06/11/23 04:56 PT 16.00 SECONDS (12.1-14.9) H 06/07/23 03:59 INR 1.24 (0.8-1.2) H 06/07/23 03:59 Sodium 141 mmol/L (136-145) 06/11/23 04:56 Potassium 3.3 mmol/L (3.5-5.1) L 06/11/23 04:56 Chloride 103 mmol/L (98-107) 06/11/23 04:56 Carbon Dioxide 24 mmol/L (22-29) 06/11/23 04:56 Anion Gap 17.3 (5-19) 06/11/23 04:56 BUN 22 mg/dL (8-23) 06/11/23 04:56 Creatinine 1.5 mg/dL (0.7-1.2) H 06/11/23 04:56 GFR Calculation 46.4 mL/min (90-130) L 06/11/23 04:56 Glucose 166 mg/dL (65-115) H 06/11/23 04:56 POC Glucose 134 mg/dL (70-110) H 06/07/23 06:42 Calculated Osmolality 299 mOsm/kg (285-295) H 06/11/23 04:56 Lactic Acid 1.9 mmol/L (0.5-2.2) 06/06/23 11:11 Calcium 8.5 mg/dL (8.5-10.5) 06/11/23 04:56 Magnesium 2.4 mg/dL (1.7-2.3) H 06/07/23 03:59 Total Bilirubin 0.8 mg/dL (0.15-1.2) 06/11/23 04:56 AST 9 U/L (0-40) 06/11/23 04:56 ALT 13 U/L (0-41) 06/11/23 04:56 Alkaline Phosphatase 103 U/L (40-130) 06/11/23 04:56 C-Reactive Protein 48.5 mg/L (0.0-4.9) H 06/06/23 11:11 NT-Pro-B Natriuret Pep 58217 pg/mL (0-125) H 06/06/23 11:11 Total Protein 7.1 g/dL (6.6-8.7) 06/11/23 04:56 Albumin 3.4 g/dL (3.5-5.2) L 06/11/23 04:56 Globulin 3.7 g/dL (1.3-4.6) 06/11/23 04:56 Procalcitonin 0.10 ng/mL (0-0.5) 06/06/23 11:11 TSH 1.89 uIU/mL (0.27-4.20) 06/06/23 11:11 Urine Color Dark yellow (Yellow) 06/06/23 11:40 Urine Appearance Hazy (CLEAR) A 06/06/23 11:40 Urine pH 5 (5-7) 06/06/23 11:40 Ur Specific [place] 1.015 (1.005-1.030) 06/06/23 11:40 Urine Protein 3+ (Negative) H 06/06/23 11:40 Urine Glucose (UA) Norm (Normal) 06/06/23 11:40 Urine Ketones 1+ (Negative) H 06/06/23 11:40 Urine Blood 2+ (Negative) H 06/06/23 11:40 Urine Nitrate Positive (Negative) H 06/06/23 11:40 Urine Bilirubin 1+ (Negative) H 06/06/23 11:40 Urine Urobilinogen 4 mg/dL (Negative) H 06/06/23 11:40 Ur Leukocyte Esterase 1+ (Negative) H 06/06/23 11:40 Urine RBC 0-4 /hpf (0-2) H 06/06/23 11:40 Urine WBC 40-55 /hpf (0-5) H 06/06/23 11:40 Ur Squamous Epith Cells 0-4 /hpf (0-5) H 06/06/23 11:40 Amorphous Sediment Not Reportable 06/06/23 11:40 Urine Bacteria 4+ /hpf (NONE) H 06/06/23 11:40 Vancomycin Trough 20.6 ug/mL (10-15) H 06/08/23 20:10 Imaging Echo: Radiologist's impression: CONCLUSIONS LV systolic function is severely reduced with EF of 20 to 25%. Moderately hypokinetic RV Moderate eccenteric mitral regurgitation Mild to moderate regurgitation Trace tricuspid regurgitation Ascending aorta is mildly dilated with diameter of 3.66cm IVC is dilated Compared to prior echocardiogram from 2022, LV systolic function appears to have decreased significantly now. Procedures Performed Lexiscan stress test: IMPRESSIONS 1. Myocardial perfusion imaging revealing large areas of persistent decreased tracer uptake involving the inferior, inferolateral, anterolateral and apical regions suggesting extensive myocardial scarring, mostly in the distribution of the right coronary artery and left circumflex artery with very small areas of possible trevon-infarction ischemia. 2. Diminished LV ejection fraction of 29%. 3. Segmental wall motion analysis revealing diffuse hypokinesia of the left ventricle 4. Markedly dilated LV cavity with an end-systolic volume of 218 mL No similar previous studies are available for comparison Vitals Last Vital Signs Temp 97.6 F 06/11/23 07:19 Pulse 68 06/11/23 09:02 Resp 20 H 06/11/23 09:02 BP 157/92 06/11/23 07:19 Pulse Ox 85 L 06/11/23 09:02 O2 Del Method Room Air 06/11/23 09:02 O2 Flow Rate 2 06/10/23 14:29 Discharge Plan Discharge Patient Disposition: Home Condition: Stable Prescriptions: New hydralazine 25 mg Tablet 75 mg PO TID 30 Days Qty: 270 0RF metoprolol succinate 25 mg Tablet Extended Release 24 Hr 25 mg PO DAILY 30 Days Qty: 30 0RF Continued nitroglycerin 0.4 mg tablet, sublingual 0.4 mg SUBLINGUAL Q5M PRN (Reason: chest pain) Qty: 30 4RF Rx Instructions: until response; do not exceed 3 doses per episode tizanidine 4 mg capsule 4 mg PO QID PRN (Reason: Muscle Spasm) potassium chloride 20 mEq tablet,ER particles/crystals 20 meq PO DAILY atorvastatin 40 mg tablet 40 mg PO QPM clopidogrel 75 mg tablet 75 mg PO QAM Qty: 90 0RF acetaminophen 325 mg Tablet 650 mg PO QID PRN (Reason: Pain) Changed furosemide 40 mg tablet 60 mg PO BID 30 Days Qty: 30 0RF Discontinued hydralazine 25 mg tablet 25 mg PO TID Qty: 90 2RF ibuprofen [Advil] 200 mg Tablet 400 mg PO Q6H PRN (Reason: Pain) carvedilol 6.25 mg tablet 6.25 mg PO BID@0900,2100 Discharge Orders: Discharge Order (Routine); Ordered 06/11/23 Ordered By: Fernando Pace Referrals: Esperanza Rea DO [Referring] - 06/16/23 1:20 pm [facility], [Staff Physician] - 06/16/23 9:00 am ([phone]) Discharge Diet: Cardiac Discharge Activity: Resume usual activity and Increase activity as tolerated Patient Instructions: Metoprolol (By mouth), Furosemide (By mouth), Hydralazine (By mouth), Heart Failure (GEN), CHF Stoplight, Opioid Safety Activity Restrictions/Additional Instructions: Restrict fluid intake to less than 1500 cc, salt intake to less than 2 g daily. Advised to check his weight daily at home. Is advised that weight today would be the dry weight and if body weight increases by around 5 pounds, patient is to take an extra dose of Lasix daily till body weight comes down to weight today. If not able to come down to dry body weight in 1 week, then is to call cardiology office for further recommendations. Patient was counseled in detail to take medications regularly as prescribed. Follow-up with a primary care provider on set appointment. You should have a repeat CMP drawn on the day of your visit. Please check your blood pressure daily at home and maintain a blood pressure diary. Discharge Attestations Time Spent in Discharge Care*: greater than 30 min Specific Discharge Activities: educating patient, discussing with pcp/other providers, discussing with shelter case manager/social workers/dc planners, documenting/other paperwork and evaluating patient/reviewing data Time Spent in Smoking Cessation: more than 10 minutes Status at Discharge: Cognitive status at discharge: cognitively intact , Behavioral status at discharge: cooperative and can be uncooperative , Functional status at discharge: other assisted ambulation , Overall status at discharge: patient is progressing back to baseline Quality Metrics Clinical Quality Measures [ No reported AMI, CVA or VTE this stay] Coding Level of Care Code 42321 Total time (in minutes) for Discharge: 60 Diagnoses Systolic congestive heart failure I50.20 UTI (urinary tract infection) N39.0 Bacteremia due to Staphylococcus R78.81; B95.8 Ischemic cardiomyopathy I25.5 CHF (congestive heart failure) I50.9 Chronic kidney disease N18.9 Sacral decubitus ulcer, stage IV L89.154 Altered mental status R41.82 Multiple sclerosis G35
[2023-06-11 11:28] LABS: Glucose Point of Care 149 mg/dL (70-110)
== END 2023-06-11 12:26 | disposition home or self-care (01) | DRG 698 ==
LOC: ER 14:25 → MEDSURG 15:49
PROVIDERS: Admitting Provider Internal Medicine; Emergency Provider Family Medicine; PCP Registered Nurse; Visit Provider Student in an Organized Health Care Education/Training Program
DX: T83.518A Infection and inflammatory reaction due to other urinary catheter, initial encounter (principal); I50.23 Acute on chronic systolic (congestive) heart failure; L89.154 Pressure ulcer of sacral region, stage 4; I13.0 Hypertensive heart and chronic kidney disease with heart failure and stage 1 through stage 4 chronic kidney disease, or unspecified chronic kidney disease; N39.0 Urinary tract infection, site not specified; M46.28 Osteomyelitis of vertebra, sacral and sacrococcygeal region; L03.116 Cellulitis of left lower limb; L03.115 Cellulitis of right lower limb; I25.5 Ischemic cardiomyopathy; G35 Multiple sclerosis; N31.9 Neuromuscular dysfunction of bladder, unspecified; E78.5 Hyperlipidemia, unspecified; N18.9 Chronic kidney disease, unspecified; F17.210 Nicotine dependence, cigarettes, uncomplicated; I25.10 Atherosclerotic heart disease of native coronary artery without angina pectoris; B96.20 Unspecified Escherichia coli [E. coli] as the cause of diseases classified elsewhere; Y73.8 Miscellaneous gastroenterology and urology devices associated with adverse incidents, not elsewhere classified; I25.2 Old myocardial infarction; Z95.5 Presence of coronary angioplasty implant and graft; Z91.81 History of falling; Z86.010 Personal history of colon polyps
CPT/HCPCS: 36415; 36416; 51702; 71045; 74176; 78452; 80048; 80053; 80202; 81001; 82962; 83605; 83735; 83880; 84145; 84443; 85025; 85610; 86140; 87040; 87077; 87086; 87150; 87186; 87205; 93005; 93017; 93306; 94664; 96365; 96367; 96372; 96375; 99285; A9500; J0360; J1644; J1940; J2543; J2785; J3370; J7030; J7050

== ENCOUNTER 2023-06-21 09:48 | Inpatient (IN) | payer MEDICARE, MEDICAID, SELFPAY ==
[2023-06-21] VITALS (42 sets, daily range): BP systolic 120–208; BP diastolic 60–125; PULSE 44–75; RESP 11–27; TEMP 36.6–37.4; O2SAT 90–100
--- NOTE | 2023-06-21 09:50 | W.ED.GENADLT ---
HPI - General Adult General: Chief complaint: Altered Mental Status Stated complaint: AMS Time Seen by Provider: 06/21/23 09:49 Source: patient Mode of arrival: ambulatory History of Present Illness: 68-year-old male brought in by EMS with altered mental status recently hospitalized. He was encephalopathic with a UTI and heart failure at the time he returns today with significant edema he was combative on arrival and while in round. Recent hospitalization similar presentation. He was just discharged few days ago. No family at bedside. Family is concerned about their ability to take care of him this is also an issue at times last discharge although the discharge summary is listed as patient stating it was adamant about going home. He was discharged home on antibiotics. He has a significant tunneling decubitus ulcer. He also had worsening ejection fraction at the time of his last hospitalization with an EF down to 20%. Unable to contribute to his history at this time Review of Systems General: Reports: ROS unobtainable due to mental status PFSH ED PFSH: Medical History Osteomyelitis Decubitus ulcer of sacral region, unstageable Diastolic CHF Cellulitis Cardiomyopathy Falls frequently Periorbital edema of both eyes Skin ulcer Acute on chronic urinary retention Encephalopathy Lactic acidosis Hypothermia Tobacco dependency Multiple sclerosis Troponin level elevated Urinary retention Acute on chronic renal failure Chronic kidney disease Coronary artery disease Lacunar infarction Hyperlipidemia HTN (hypertension) Ischemic cardiomyopathy History of non-ST elevation myocardial infarction (NSTEMI) CHF (congestive heart failure) Surgical History Hx of colonoscopy with polypectomy History of esophagogastroduodenoscopy (EGD) Hx of heart artery stent stents x 2, 2018- unknown vessels Family History Sister Heart disease Hypertension Myocardial infarction Mother Cancer Daughter Myocardial infarction Social History Smoking and tobacco/nicotine status: current every day tobacco/nicotine user cigarettes Packs smoked per day: 0.5 [ Other cigarette details: Cutting down] Alcohol intake: never Substance/Drug Use: unknown Adopted: No Caregiver/support person: No Lives independently: No Marital status: Single Physical Exam HENMT: COMMON NORMALS: normocephalic, atraumatic and hearing grossly normal bilaterally HEAD & SCALP: normocephalic and atraumatic Resp: COMMON NORMALS: normal respiratory effort, No retractions and No use of accessory muscles AUSCULTATION: crackles Cardio: RATE: bradycardic GI: COMMON NORMALS: Soft to palpation and No hepatosplenomegaly present AUSCULTATION: Yes normoactive bowel sounds PALPATION: Yes Soft to palpation, No Tenderness to palpation present (GI), No Guarding due to palpation present (GI) and Yes No hepatosplenomegaly present Extremity: GENERAL: Yes edema Skin: COMMON NORMALS: no rashes or lesions noted GENERAL SKIN EXAM: no rashes or lesions noted Course Vital Signs: Vital signs: Vital Signs Temperature 97.8 F 06/21/23 09:49 Pulse Rate 58 L 06/21/23 12:45 Respiratory Rate 14 06/21/23 12:35 Blood Pressure 176/86 06/21/23 12:45 Pulse Oximetry 99 06/21/23 12:45 Oxygen Delivery Me thod Room Air 06/21/23 09:49 MDM - General Adult Medical Decision Making Acute encephalopathy secondary to multiple medical conditions. He has cystitis worsening of his congestive heart failure as well as hypertension. Will admit discussed Dr. Rome orders written. Medical Records I reviewed the patient's medical records. Lab Data 06/21/23 10:03 06/21/23 10:03 Laboratory Results WBC 9.63 10^3/uL (3.29-11.43) 06/21/23 10:03 RBC 4.67 10^6/uL (3.85-5.65) 06/21/23 10:03 Hgb 12.60 g/dL (11.27-16.99) 06/21/23 10:03 Hct 41.4 % (37-53) 06/21/23 10:03 MCV 88.7 fl (82-101) 06/21/23 10:03 MCH 27.0 pg (27-33) 06/21/23 10:03 MCHC 30.4 g/dL (30-55) 06/21/23 10:03 RDW 16.8 % (12.1-15.1) H 06/21/23 10:03 Plt Count 285 10^3/cmm (157-399) 06/21/23 10:03 MPV 9.9 fL (7.4-10.4) 06/21/23 10:03 Neut % (Auto) 74.4 % 06/21/23 10:03 Lymph % (Auto) 8.4 % 06/21/23 10:03 [place] % (Auto) 10.8 % 06/21/23 10:03 Eos % (Auto) 5.1 % 06/21/23 10:03 Baso % (Auto) 1.1 % 06/21/23 10:03 Neut # (Auto) 7.16 10^3/uL (1.8-7.7) 06/21/23 10:03 Lymph # (Auto) 0.8 10^3/uL (0.8-4.8) 06/21/23 10:03 [place] # (Auto) 1.0 10^3/uL (0.2-0.9) H 06/21/23 10:03 Eos # (Auto) 0.5 10^3/uL (0.0-0.8) 06/21/23 10:03 Baso # (Auto) 0.1 10^3/uL (0.0-0.1) 06/21/23 10:03 Nucleated RBC % (auto) 0 % 06/21/23 10:03 Nucleated RBCs # 0.0 /100WBC 06/21/23 10:03 Specimen Type Arterial 06/21/23 10:15 Sample Site Brachial, right 06/21/23 10:15 ABG pH 7.44 (7.35-7.45) 06/21/23 10:15 ABG pCO2 37.6 mmHg (35-45) 06/21/23 10:15 ABG pO2 62.5 mmHg (80.0-100.0) L 06/21/23 10:15 ABG HCO3 25.4 mmol/L (22-26) 06/21/23 10:15 ABG O2 Saturation 93.2 06/21/23 10:15 ABG Base Excess 1.3 mmol/L (-2.0-2.0) 06/21/23 10:15 [place]is Test N/a 06/21/23 10:15 A-a O2 Gradient 5.3 mmHg (5-10) 06/21/23 10:15 Hematocrit 38.2 % (42-52) L 06/21/23 10:15 Hgb O2 Saturation 89.4 % (95-100) L 06/21/23 10:15 Carboxyhemoglobin 3.8 %THgb (0.4-20.1) 06/21/23 10:15 Methemoglobin 0.3 % (0.4-1.5) L 06/21/23 10:15 Total Hemoglobin 12.5 g/dL (14-18) L 06/21/23 10:15 Sodium 137.0 mmol/L (131-143) 06/21/23 10:15 Potassium 4.3 mmol/L (3.5-5.0) 06/21/23 10:15 Glucose 127.0 mg/dL (70-115) H 06/21/23 10:15 Ionized Calcium 1.2 mmol/L (1.1-1.4) 06/21/23 10:15 O2 Delivery Device Room air 06/21/23 10:15 Packing Inspector ID [id number] 06/21/23 10:15 Sodium 135 mmol/L (136-145) L 06/21/23 10:03 Potassium 4.9 mmol/L (3.5-5.1) 06/21/23 10:03 Chloride 99 mmol/L (98-107) 06/21/23 10:03 Carbon Dioxide 26 mmol/L (22-29) 06/21/23 10:03 Anion Gap 14.9 (5-19) 06/21/23 10:03 BUN 24 mg/dL (8-23) H 06/21/23 10:03 Creatinine 1.3 mg/dL (0.7-1.2) H 06/21/23 10:03 GFR Calculation 54.7 mL/min (90-130) L 06/21/23 10:03 Glucose 117 mg/dL (65-115) H 06/21/23 10:03 Calculated Osmolality 285 mOsm/kg (285-295) 06/21/23 10:03 Calcium 9.1 mg/dL (8.5-10.5) 06/21/23 10:03 Magnesium 2.6 mg/dL (1.7-2.3) H 06/21/23 10:03 Total Bilirubin 0.6 mg/dL (0.15-1.2) 06/21/23 10:03 AST 11 U/L (0-40) 06/21/23 10:03 ALT 26 U/L (0-41) 06/21/23 10:03 Alkaline Phosphatase 140 U/L (40-130) H 06/21/23 10:03 Creatine Kinase 77 U/L (39-308) 06/21/23 10:03 Troponin T Baseline 99 ng/L (0-15) H 06/21/23 10:03 Troponin T 120 Minute 86.45 ng/L (0-15) H 06/21/23 12:12 Delta Troponin T -12.55 ABS# (0-10) L 06/21/23 12:12 NT-Pro-B Natriuret Pep 65972 pg/mL (0-125) H 06/21/23 10:03 Total Protein 7.0 g/dL (6.6-8.7) 06/21/23 10:03 Albumin 3.6 g/dL (3.5-5.2) 06/21/23 10:03 Globulin 3.4 g/dL (1.3-4.6) 06/21/23 10:03 Lipase 12 U/L (13-60) L 06/21/23 10:03 Urine Color Yellow (Yellow) 06/21/23 11:10 Urine Appearance Hazy (CLEAR) A 06/21/23 11:10 Urine pH 6 (5-7) 06/21/23 11:10 Ur Specific [place] 1.015 (1.005-1.030) 06/21/23 11:10 Urine Protein 2+ (Negative) H 06/21/23 11:10 Urine Glucose (UA) Norm (Normal) 06/21/23 11:10 Urine Ketones Negative (Negative) 06/21/23 11:10 Urine Blood Neg (Negative) 06/21/23 11:10 Urine Nitrate Negative (Negative) 06/21/23 11:10 Urine Bilirubin Neg (Negative) 06/21/23 11:10 Urine Urobilinogen 1 mg/dL (Negative) H 06/21/23 11:10 Ur Leukocyte Esterase 1+ (Negative) H 06/21/23 11:10 Urine RBC None /hpf (0-2) 06/21/23 11:10 Urine WBC 15-25 /hpf (0-5) H 06/21/23 11:10 Ur Squamous Epith Cells Rare /hpf (0-5) 06/21/23 11:10 Amorphous Sediment Not Reportable 06/21/23 11:10 Urine Bacteria 4+ /hpf (NONE) H 06/21/23 11:10 Salicylates 1.6 mg/dL (3-10) L 06/21/23 12:12 Urine Opiates Screen Negative ng/mL (Negative) 06/21/23 11:10 Acetaminophen < 5.0 ug/mL (10-30) L 06/21/23 12:12 Ur Barbiturates Screen Negative ng/mL (Negative) 06/21/23 11:10 Ur Phencyclidine Scrn Negative ng/mL (Negative) 06/21/23 11:10 Ur Amphetamines Screen Negative ng/mL (Negative) 06/21/23 11:10 U Benzodiazepines Scrn Negative ng/mL (Negative) 06/21/23 11:10 Urine Cocaine Screen Negative ng/mL (Negative) 06/21/23 11:10 U Marijuana (THC) Screen Negative ng/mL (Negative) 06/21/23 11:10 Ethyl Alcohol < 10 mg/dL (0-10) 06/21/23 12:12 Serum Ketones Negative (Negative) 06/21/23 10:03 All radiology interpretation(s) finalized by discharge Discharge Plan Discharge Patient Disposition: Admitted As Inpatient Clinical Impression: Encephalopathy acute, CHF (congestive heart failure), UTI (urinary tract infection), Ischemic cardiomyopathy, Pressure injury of deep tissue of sacral region Prescriptions: No Action nitroglycerin 0.4 mg tablet, sublingual 0.4 mg SUBLINGUAL Q5M PRN (Reason: chest pain) Qty: 30 4RF Rx Instructions: until response; do not exceed 3 doses per episode tizanidine 4 mg capsule 4 mg PO QID PRN (Reason: Muscle Spasm) potassium chloride 20 mEq tablet,ER particles/crystals 20 meq PO DAILY atorvastatin 40 mg tablet 40 mg PO QPM clopidogrel 75 mg tablet 75 mg PO QAM Qty: 90 0RF acetaminophen 325 mg Tablet 650 mg PO QID PRN (Reason: Pain) hydralazine 25 mg Tablet 75 mg PO TID 30 Days Qty: 270 0RF metoprolol succinate 25 mg Tablet Extended Release 24 Hr 25 mg PO DAILY 30 Days Qty: 30 0RF furosemide 40 mg tablet 60 mg PO BID 30 Days Qty: 30 0RF Referrals: Kylie Vogel [Referring] - Patient Instructions: Altered Mental Status (ED) Coding Level of Care Code ED Machinist General for Kathryn Olmstead
--- NOTE | 2023-06-21 09:58 | XRR_ITS ---
PROCEDURE INFORMATION: Exam: XR Chest Exam date and time: 06/21/2023 11:24 AM Age: 68 years old Clinical indication: Cough and dyspnea; Additional info: Dyspnea/cough TECHNIQUE: Imaging protocol: Radiologic exam of the chest. Views: 1 view. COMPARISON: CR XR chest 1V portable [id number] 06/06/2023 11:12 AM FINDINGS: Lungs: There is diffuse hazy pulmonary edema throughout both lungs. I see no dense consolidation or lung mass. Pleural spaces: Unremarkable. No pleural effusion. No pneumothorax. Heart/Mediastinum: Severe cardiomegaly is noted. Bones/joints: Unremarkable. XR/XR chest 1V portable [id number] IMPRESSION: CHF. There has been slight interval worsening of pulmonary edema over the past 2 weeks.
--- NOTE | 2023-06-21 09:58 | CT_ITS ---
WS: [id number] CT ABDOMEN AND PELVIS WITH CONTRAST HISTORY: abd pain TECHNIQUE: Imaging performed of the abdomen and pelvis with IV contrast. Single phase imaging of the abdomen. Coronal and sagittal reformats are submitted. All CT scans at [facility] use at [address] one of these dose optimization techniques: automated exposure control; mA and/or kV adjustment per patient size (includes targeted exams where dose is matched to clinical indication); or iterative re construction. IV CONTRAST: Omnipaque 350; 100 mL IV. Oral contrast: No DLP: 1234.13 mGy.cm COMPARISON: 06/06/2023 Patient is significantly rotated for this examination with a large body habitus. Lower thorax: Very small bilateral pleural effusions. Heart is markedly enlarged. All 4 chambers are significantly dilated as on prior studies. There may actually be mild RIGHT heart strain. No hiatal h ernia. Liver/biliary system: Normal size with no intrahepatic dilatation. Gallbladder: Normal. No gallstones or wall thickening. No pericholecystic fluid. Pancreas: Normal size pancreas and pancreatic duct. No adjacent inflammation. Spleen: Normal size spleen. No mass or infarct. Adrenal glands: Normal. Right kidney: Motion artifact. Mild atrophy. No obstruction. Left kidney: Limited by motion artifact. No obstruction. Cortical cyst 1.0 cm lower pole. Aorta: Mild atherosclerosis with no aneurysm. Additional extensive calcification throughout the mesen teric arteries. Lymphadenopathy: None. Free fluid: There is a very small amount of ascites in the abdomen and pelvis. Diffuse soft tissue an asarca. Dependent anasarca on the LEFT due to rotation of the patient to the LEFT. GI tract: Stomach is not distended. No small bowel obstruction. The evaluation of the GI tract is zuluaga ited by motion. No free air identified. Tiny foci of free air would be difficult to exclude. Abdominal wall: Marked soft tissue anasarca. Pelvis: Urinary bladder is catheterized. Bladder is nondistended. Small amount of free fluid. Bones: Degenerative disc disease at L4-5. No pelvic or lumbar spine fracture. IMPRESSION: 1. Study compromised by patient position and motion. 2. Diffuse soft tissue anasarca. 3. Severe cardiomegaly. 4. No renal obstruction. 5. Atherosclerosis aorta and mesenteric arteries.
[2023-06-21 10:25] LABS: ABG PCO2 37.6 mmHg (35-45); ABG PH Result 7.44 (7.35-7.45); Alveolar-Arterial Oxygen Gradi 5.3 mmHg (5-10); Arterial Blood Gas Hematocrit 38.2 % (42-52); Base Excess ABG 1.3 mmol/L (-2.0-2.0); Blood Gas Operator Identificat GD; Blood Gas Sample Site Brachial, right; Blood Gas Sample Type Arterial; Carboxyhemoglobin 3.8 %THgb (0.4-20.1); HCO3 ABG 25.4 mmol/L (22-26); HGB O2 Sat 89.4 % (95-100); Ionized Calcium Level - ABG 1.2 mmol/L (1.1-1.4); Methemoglobin 0.3 % (0.4-1.5); Oxygen Device ROOM AIR; Oxygen Saturation ABG 93.2; PO2 ABG 62.5 mmHg (80.0-100.0); Potassium Level - ABG 4.3 mmol/L (3.5-5.0); Total Hemoglobin 12.5 g/dL (14-18)
--- NOTE | 2023-06-21 10:28 | PC.PHAR ---
PT UNABLE TO VERIFY MEDICATIONS- UNABLE TO CONTACT [facility]- MEDICATIONS VERIFIED USING EXTERNAL MED LIST AND DISCHARGE PACKET FROM 06/11/23
[2023-06-21 10:29] LABS: Basophils # 0.1 10^3/uL (0.0-0.1); Basophils % 1.1 %; Eosinophils # 0.5 10^3/uL (0.0-0.8); Eosinophils % 5.1 %; Hematocrit 41.4 % (37-53); Lymphocytes # 0.8 10^3/uL (0.8-4.8); Lymphocytes % 8.4 %; Mean Corpuscular HGB Conc 30.4 g/dL (30-55); Mean Corpuscular Volume 88.7 fl (82-101); Mean Platelet Volume 9.9 fL (7.4-10.4); Monocytes % 10.8 %; Neutrophils # 7.16 10^3/uL (1.8-7.7); Neutrophils % 74.4 %; Nucleated Red Blood Cells % 0 %; Platelet Count 285 10^3/cmm (157-399); Red Blood Count 4.67 10^6/uL (3.85-5.65); Red Cell Distribution Width 16.8 % (12.1-15.1); White Blood Count 9.63 10^3/uL (3.29-11.43)
--- NOTE | 2023-06-21 10:34 | ECG_ITS ---
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 Measurements Intervals [place] Rate: 64 P: 0 AL: 0 QRS: 96 QRSD: 193 T: -60 QT: 498 QTc: 517 Interpretive Statements Sinus rhythm RIGHT BUNDLE BRANCH BLOCK [120+ ms QRS DURATION, UPRIGHT V1, 40+ ms S IN I/aVL/V4/V5/V6] MODERATE T-WAVE ABNORMALITY, CONSIDER LATERAL ISCHEMIA [-0.1+ mV T-WAVE IN I/aVL/V5/V6] MODERATE T-WAVE ABNORMALITY, CONSIDER INFERIOR ISCHEMIA [-0.1+ mV T-WAVE IN II/aVF] Compared to ECG 06/07/2023 00:26:18 Sinus bradycardia no longer present First degree AV block no longer present Right-axis deviation no longer present Prolonged QT interval no longer present T-wave abnormality still present Possible ischemia still present Electronically Signed On 06-22-2023 21:32:10 CDT by Debora Sevilla M.D. [id number]
[2023-06-21 10:37] LABS: Ketone (Acetest) Serum Negative (Negative)
[2023-06-21 10:52] LABS: Troponin(5th) Baseline 99 ng/L (0-15)
[2023-06-21 11:01] LABS: Alanine Aminotransferase 26 U/L (0-41); Albumin Level 3.6 g/dL (3.5-5.2); Alkaline Phosphatase 140 U/L (40-130); Anion Gap 14.9 (5-19); Aspartate Amino Transferase 11 U/L (0-40); Blood Urea Nitrogen 24 mg/dL (8-23); Calcium 9.1 mg/dL (8.5-10.5); Carbon Dioxide 26 mmol/L (22-29); Chloride 99 mmol/L (98-107); Creatine Phosphokinase 77 U/L (39-308); Globulin 3.4 g/dL (1.3-4.6); Glomerular Filtration Rate 54.7 mL/min (90-130); Glucose 117 mg/dL (65-115); Lipase 12 U/L (13-60); Magnesium 2.6 mg/dL (1.7-2.3); NT Pro B Type Natriuretic Pept 20356 pg/mL (0-125); Osmolality Calculated 285 mOsm/kg (285-295); Potassium 4.9 mmol/L (3.5-5.1); Sodium 135 mmol/L (136-145); Total Bilirubin 0.6 mg/dL (0.15-1.2)
[2023-06-21 11:26] LABS: Blood Urine Neg (Negative); Glucose Urine UA Norm (Normal); Ketones Urine Negative (Negative); Protein Urine 2+ (Negative); Specific Gravity, Urine 1.015 (1.005-1.030); Urine Appearance Hazy (CLEAR); Urine Color Yellow (Yellow); pH Urine 6 (5-7)
[2023-06-21 11:27] LABS: Add Urine Culture? Yes; Add Urine Microscopic? YES; Bacteria Urine 4+ /hpf; Bilirubin Urine Neg (Negative); Leukocyte Esterase Urine 1+ (Negative); Nitrate Urine Negative (Negative); Squamous Epithelial Cell Urine RARE /hpf (0-5); Urobilinogen Urine 1 mg/dL (Negative); WBC Urine 15-25 /hpf (0-5)
[2023-06-21] MEDS: iohexol 350 mg/mL 500 mL Btl (per mL) IV (11:46)
--- NOTE | 2023-06-21 12:08 | ECG_ITS ---
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 Measurements Intervals [place] Rate: 73 P: 57 MI: 254 QRS: 102 QRSD: 193 T: -79 QT: 471 QTc: 521 Interpretive Statements SINUS RHYTHM WITH FIRST DEGREE AV BLOCK RIGHT AXIS DEVIATION [QRS AXIS > 100] RIGHT BUNDLE BRANCH BLOCK [120+ ms QRS DURATION, UPRIGHT V1, 40+ ms S IN I/aVL/V4/V5/V6] MODERATE T-WAVE ABNORMALITY, CONSIDER LATERAL ISCHEMIA [-0.1+ mV T-WAVE IN I/aVL/V5/V6] MODERATE T-WAVE ABNORMALITY, CONSIDER INFERIOR ISCHEMIA [-0.1+ mV T-WAVE IN II/aVF] Compared to ECG 06/21/2023 10:34:57 First degree AV block now present Right-axis deviation now present T-wave abnormality still present Possible ischemia still present Electronically Signed On 06-22-2023 21:46:26 CDT by Debora Sevilla M.D. [email or web address] - [id number]
[2023-06-21] MEDS: hyDRALAzine 20 mg/mL INJ 1 mL IVP (12:28)
[2023-06-21 12:45] LABS: Troponin 5 2HR 86.45 ng/L (0-15)
[2023-06-21 12:47] LABS: Salicylate 1.6 mg/dL (3-10)
[2023-06-21 12:54] LABS: Acetaminophen < 5.0 ug/mL (10-30); Alcohol Level < 10 mg/dL (0-10); Troponin 5 2HR Delta -12.55 ABS# (0-10)
[2023-06-21 13:07] LABS: Amphetamines Screen Urine Negative (Negative); Barbiturates Screen Urine Negative (Negative); Benzodiazepines Screen Urine Negative (Negative); Cocaine Screen Urine Negative (Negative); Opiate Screen Urine Negative (Negative); PCP Screen Urine Negative (Negative); THC Screen Urine Negative (Negative)
[2023-06-21 14:47] LABS: Thyroid Stimulating Hormone 1.92 uIU/mL (0.27-4.20)
[2023-06-21] MEDS: heparin 5,000 unit/mL INJ 1 mL 5000 UNIT SUBCUT (15:26)
--- NOTE | 2023-06-21 15:32 | P.HP_ITS ---
Providers/Chief Complaint 2 Admitting Physician: David Rome Primary Care Provider: Esperanza Rea DO Chief Complaint: AMS History of Present Illness 68-year-old gentleman is brought in for evaluation due to confusion, was reportedly combative with EMS, continually saying shut up , mumbling, not making sense, disheveled, covered in feces and urine, redness on bilateral lower extremities with swelling in addition to orbital and sacral edema. In ER without focal abnormality. He is unable to give history, history provided from collateral sources including ER staff and documentation, on entering the room he is talking to himself with random words, but when spoken to does respond, denies pain, denies headache, does trail off somewhat states he was having some pain in his arms earlier and that he takes muscle relaxers 1 pill every few hours . Did not really answer other questions. Did not participate in examination but was not combative and allowed a limited exam. On presentation he is very hypertensive, 208/115. Review of Systems 2 General: Reports: ROS unobtainable due to mental status Medications/Allergies Home Medications Medication Instructions Recorded Confirmed Last Taken Type nitroglycerin 0.4 mg sublingual 0.4 mg sublingual Q5M PRN chest 04/27/19 06/21/23 1 Week Ago Rx tablet pain #30 tabs ~05/30/23 atorvastatin 40 mg tablet 40 mg PO QPM 11/22/21 06/21/23 06/05/23 History clopidogrel 75 mg tablet 75 mg PO QAM #90 tabs 11/24/21 06/21/23 1 Week Ago Rx ~05/30/23 potassium chloride 20 mEq 20 meq PO DAILY 07/08/22 06/21/23 1 Week Ago History tablet,extended release(part/cryst) ~05/30/23 tizanidine 4 mg capsule 4 mg PO QID PRN Muscle Spasm 12/11/22 06/21/23 Unknown History acetaminophen 325 mg tablet 650 mg PO QID PRN Pain 06/06/23 06/21/23 Unknown History furosemide 40 mg tablet 60 mg (1.5 x 40 mg) PO BID 30 days 06/11/23 06/21/23 1 Week Ago Rx #30 tabs ~05/30/23 hydralazine 25 mg tablet 75 mg (3 x 25 mg) PO TID 30 days 06/11/23 06/21/23 Unknown Rx #270 tabs metoprolol succinate 25 mg 25 mg PO DAILY 30 days #30 tabs 06/11/23 06/21/23 Unknown Rx tablet,extended release 24 hr Allergies Allergy/AdvReac Type Severity Reaction Status Date / Time No Known Allergies Allergy Verified 06/21/23 10:27 PFSH Acute 2 PFSH: Medical History Osteomyelitis Decubitus ulcer of sacral region, unstageable Diastolic CHF Cellulitis Cardiomyopathy Falls frequently Periorbital edema of both eyes Skin ulcer Acute on chronic urinary retention Encephalopathy Lactic acidosis Hypothermia Tobacco dependency Multiple sclerosis Troponin level elevated Urinary retention Acute on chronic renal failure Chronic kidney disease Coronary artery disease Lacunar infarction Hyperlipidemia HTN (hypertension) Ischemic cardiomyopathy History of non-ST elevation myocardial infarction (NSTEMI) CHF (congestive heart failure) Surgical History Hx of colonoscopy with polypectomy History of esophagogastroduodenoscopy (EGD) Hx of heart artery stent stents x 2017- unknown vessels Family History Sister Heart disease Hypertension Myocardial infarction Mother Cancer Daughter Myocardial infarction Social History Smoking and tobacco/nicotine status: current every day tobacco/nicotine user cigarettes Packs smoked per day: 0.5 [ Other cigarette details: Cutting down] Alcohol intake: never Substance/Drug Use: unknown Adopted: No Caregiver/support person: No Lives independently: No Marital status: Single Vitals/I&O/Wt Last Vital Signs Temp 97.8 F 06/21/23 09:49 Pulse 58 L 06/21/23 13:53 Resp 14 06/21/23 12:35 BP 176/86 06/21/23 13:53 Pulse Ox 99 06/21/23 13:53 O2 Del Method Room Air 06/21/23 09:49 Weight last 48 hrs Weight 119.975 kg Physical Exam 2 Const: COMMON NORMALS: negative for alert GENERAL APPEARANCE: disheveled; not cooperative NUTRITIONAL APPEARANCE: obese ORIENTATION/CONSCIOUSNESS: Y es confused HENMT: COMMON NORMALS: oropharynx normal OTHER: Periorbital edema Neck/C-Spine: COMMON NORMALS: no JVD Resp: AUSCULTATION: diminished lung sounds Cardio: COMMON NORMALS: no JVD, regular rhythm, S1 normal heart sound present, S2 normal heart sound present and No murmurs present (Cardio) RHYTHM: regular rhythm HEART SOUNDS: S1 normal heart sound present and S2 normal heart sound present GI: COMMON NORMALS: Normal to inspection, nondistended, normoactive bowel sounds present, Soft to palpation and non-tender PALPATION: Yes Soft to palpation Extremity: COMMON NORMALS: no joint enlargement OTHER: 2+ lower extremity edema Neuro: COMMON NORMALS: moves all extremities; negative for patient oriented x3 SENSORIUM/ORIENTATION: Yes alert Skin: OTHER: Chronic bilateral lower extremity stasis dermatitis, mild superimposed bilateral lower extremity erythema Urinary Catheter Management: Barros: Cath Placed During This Visit: yes Urinary Catheter Date of Insertion: 06/21/23 Urinary Catheter Time of Insertion: 11:15 Data 06/21/23 10:03 06/21/23 10:03 Micro: Microbiology 06/21/23 10:10 Blood Culture - Preliminary Blood SPECIMEN COLLECTED 06/21/23 10:03 Blood Culture - Preliminary Blood SPECIMEN COLLECTED A&P Assessment and plan (1) Encephalopathy acute: He is unable to provide history, history obtained from collateral sources including ER staff, documentation, as well as his significant other. They have been together for 20 years although are not . She tells me that he gets some recurrent encephalopathy, particularly when he develops a UTI. We discussed also regarding a very elevated blood pressure. She is not sure whether he takes his medications, although he tells her that he does. She does keep an eye on his pills and did not notice that he takes too many. She does state that recently he has been taking a lot of Tylenol and ibuprofen. When he gets UTI, refuses to be taken to the hospital when ambulance arrives, progressively becomes more confused, will lay on the floor, keeps refusing until he becomes incomprehensible at which point he is taken to ED. He does not trust his significant other and in case she is trying to point out anything about his health he may become verbally belligerent and suspicious. She otherwise does not feel physically unsafe. Acute metabolic encephalopathy likely secondary to UTI, as well as hypertensive emergency with severely elevated blood pressure, some markers of demand cardiac ischemia and suspect hypertensive encephalopathy. Received hydralazine, he is somewhat bradycardic at 58, will hold beta-mariel, will give half an inch Nitropaste, 5 mg every 8 hours hydralazine IV until can reliably take oral medications. He additionally frequently leaves the hospital prematurely against medical as soon as he starts feeling better. Monitor blood pressures. Monitor on telemetry. Treat UTI. Hold tizanidine. Reassess renal function, concern for possibility of acute renal failure as his states he normally Self catheterizes about 9 times a day especially when he is on diuretics, but reports that over the last 2 days he only collected about 8 ounces of urine. Reviewed vitals, CBC, ABG, baseline and 2-hour troponin, magnesium, requested TSH, CK, reviewed UA, UDS, serum ketones, CT abdomen pelvis, CXR, ER note, discussed with ER provider. Obtain CT head. (2) Systolic congestive heart failure: Ischemic cardiomyopathy, EF reduced at 20-25%. Acute exacerbation with lower extremity, sacral edema. Severe cardiomegaly on chest x-ray, worsening of pulmonary edema. IV diuresis with IV Lasix, monitor electrolytes, renal function, at risk of electrolyte abnormality with IV Lasix, arrhythmia, monitor on telemetry. At risk of kidney injury. Follow-up chemistry requested. Monitor weights, ROXANN. (3) UTI (urinary tract infection): Complicated UTI with acute encephalopathy. With history of MDRO infection. He also normally self catheterizes chronically about 9 times a day if he is on diuretics. Recently with reduced urine output as per his over the last 2 days about 8 ounces of urine. Question of possible acute renal failure as he has been taking ibuprofen, possibly contribution of cardiorenal, although he is maintaining blood pressure (currently very hypertensive), Barros catheter was placed in ER. Reviewed prior cultures, will start ciprofloxacin. Follow-up urine culture. No obstructive uropathy on CT. (4) Hypertensive emergency: Hypertensive emergency with encephalopathy, demand ischemia with EKG changes, moderate troponin elevation without peak, he denies chest pain. History of coronary disease with abnormal stress test during recent admission with minimal trevon-infarct ischemia at which time intervention was considered but he elected medical therapy. Received 20 mg IV hydralazine in ER, blood pressure down to 176/86, will give half inch of Nitropaste, hydralazine 5 mg 3 times daily, monitor blood pressure. Monitor on telemetry with risk of arrhythmia. Reassess mental status. Plan Self catheterizes about 9 times a day. Demand ischemia: Troponin elevation baseline 99, 2 hours 86.4, EKG with ST depression, without significant Q waves on my interpretation. Suspect secondary to hypertensive emergency, congestive heart failure. Complete troponin EKG series. Monitor telemetry. Start aspirin 325 mg CA until able to resume oral intake. Recent hospitalization: With congestive heart failure, altered mental status, possible UTI, found to have lower ejection fraction 20-25%, underwent stress test which found a large scarred/infarct area of the LV with minimal trevon- infarct ischemia, elected to continue with medical management. CHF improved with diuresis, declined to go to long-term at discharge. Abnormal blood culture: 1 bottle with 2 organisms events with negative repeat blood culture. Additional blood cultures obtained this admission. Follow-up. Decubitus ulcer: Continue wound care. Frequent falls: Fall precautions. Chronic periorbital edema Smoking addiction: Will offer nicotine replacement when able to tolerate. Attestations 2 Medical Necessity Statement*: Admission of over 2 midnights anticipated for acute encephalopathy, complicated UTI, hypertensive emergency, Diagnoses Encephalopathy acute G93.40 Systolic congestive heart failure I50.20 UTI (urinary tract infection) N39.0 Hypertensive emergency I16.1
--- NOTE | 2023-06-21 15:56 | CTR_ITS ---
PROCEDURE INFORMATION: Exam: CT Head Without Contrast Exam date and time: 06/21/2023 4:39 PM Age: 68 years old Clinical indication: Altered mental status/memory loss; Additional info: AMS TECHNIQUE: Imaging protocol: Computed tomography of the head without contrast. Radiation optimization: All CT scans at this facility use at least one of these dose optimization techniques: automated exposure control; mA and/or kV adjustment per patient size (includes targeted exams where dose is matched to clinical indication); or iterative reconstruction. COMPARISON: CT head wo con* [id number] 04/27/2022 2:34 PM RADIATION DOSE METRICS: Total DLP (mGy-cm): 789.48 FINDINGS: Brain: Prominent diffuse cerebral atrophy is noted. There is mild chronic periventricular white matter ischemic change. There is no evidence of mass effect, infarct or hemorrhage. Cerebral ventricles: No ventriculomegaly. No midline shift. Paranasal sinuses: Visualized sinuses are unremarkable. No fluid levels. Mastoid air cells: Visualized mastoid air cells are well aerated. Bones/joints: Unremarkable. No acute fracture. Soft tissues: Unremarkable. CT/CT head wo con* [id number] IMPRESSION: 1. No acute findings. 2. Cerebral atrophy is noted along with chronic white matter ischemic changes.
--- NOTE | 2023-06-21 15:58 | ECG_ITS ---
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 Measurements Intervals [place] Rate: 73 P: 113 VT: 92 QRS: 154 QRSD: 71 T: -88 QT: 341 QTc: 378 Interpretive Statements SINUS RHYTHM WITH SHORT VT INTERVAL WITH OCCASIONAL VENTRICULAR PREMATURE COMPLEXES RIGHT ATRIAL ENLARGEMENT [0.3mV P-WAVE] LEFT ATRIAL ENLARGEMENT [-0.15mV P-WAVE IN V1/V2] LOW QRS VOLTAGE [QRS DEFLECTION < 0.5/1.0 mV IN LIMB/CHEST LEADS] POSSIBLE RIGHT VENTRICULAR CONDUCTION DELAY [RSR (QR) IN V1/V2] ANTEROLATERAL MYOCARDIAL INFARCTION , OF INDETERMINATE AGE [40+ ms Q WAVE IN I/aVL/V3-V6].MARKED ST DEPRESSION, CONSIDER SUBENDOCARDIAL INJURY [0.2+ mV ST DEPRESSION].Compared to ECG 06/21/2023 12:08:46.Ventricular premature complex(es) now. Short VT interval now present.Atrial abnormality now present Low QRS voltage now present.Myocardial infarct finding now present ST (T wave) deviation now present.First degree AV block no longer present Right-axis deviation no longer present.Right bundle-branch block no longer present. T-wave abnormality no longer present.Possible ischemia no longer present Electronically Signed On 06-22-2023 21:49:44 CDT by Debora Sevilla M.D. [email or web address] Ramp/store/[id number]
[2023-06-21 16:52] LABS: Troponin 5 6HR 78.34 ng/L (0-15); Troponin 5 6HR Delta -20.66 ng/L (0-12)
[2023-06-21 17:06] LABS: Creatine Phosphokinase 77 U/L (39-308)
[2023-06-21] MEDS: nitroglycerin 1 gm/inch oint Pkt 0.5 INCH TOPICAL (17:21)
[2023-06-21] MEDS: hyDRALAzine 20 mg/mL INJ 1 mL 5 MG IVP (17:21)
[2023-06-21] MEDS: FUROsemide 10 mg/mL SDV 4mL 60 MG IVP (17:21)
[2023-06-21] MEDS: ciprofloxacin 400 MG/200 ML PREMIX 200 MG IV (17:21)
[2023-06-21] MEDS: aspirin 300 mg Supp PR (17:22)
--- NOTE | 2023-06-21 20:24 | ECG_ITS ---
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 Measurements Intervals [place] Rate: 63 P: 64 MO: 243 QRS: 99 QRSD: 190 T: -79 QT: 499 QTc: 512 Interpretive Statements SINUS RHYTHM WITH FIRST DEGREE AV BLOCK RIGHT BUNDLE BRANCH BLOCK [120+ ms QRS DURATION, UPRIGHT V1, 40+ ms S IN I/aVL/V4/V5/V6] MODERATE T-WAVE ABNORMALITY, CONSIDER INFERIOR ISCHEMIA [-0.1+ mV T-WAVE IN II/aVF] Compared to ECG 06/21/2023 15:47:51 First degree AV block now present Right bundle-branch block now present T-wave abnormality now present Possible ischemia now present Ventricular premature complex(es) no longer present Short MO interval no longer present.Atrial abnormality no longer present Myocardial infarct finding no longer present.ST (T wave) deviation no longer present Electronically Signed On 06-22-2023 21:38:13 CDT by Debora Sevilla M.D. [id number]
[2023-06-21 20:34] LABS: Glucose Point of Care 102 mg/dL (70-110)
--- NOTE | 2023-06-21 20:42 | PC.NURSE ---
At 1999 this nurse and Student Nurse Jacque were in the room performing an assessment. At 2014 RENE Bravo and Ludivina RN entered the room to check on the patient since telemetry showed his heart was 26. This nurse palpated the left radial pulse and counted for one minute, heart rate was 46, uneven, and some beats were stronger than others. A 20 gauge IV was started in the right upper arm and an EKG was performed showing a bundle branch block. Dr. Garcia was contacted and arrived to the room at 2022 to assess the patient. He ordered a stat ABG and said If the CO2 is greater than 50, place him on BIPAP tonight. Blood sugar was checked and was 102. Patient is confused and only oriented to self. Dr. Garcia then left the room to contact the patient's family member. The patient is resting in bed on his left side, does not complain of any pain, discomfort, or needs at this time. Call light in reach.
[2023-06-21 20:49] LABS: ABG PCO2 39.4 mmHg (35-45); ABG PH Result 7.47 (7.35-7.45); Alveolar-Arterial Oxygen Gradi 1.8 mmHg (5-10); Arterial Blood Gas Hematocrit 35.3 % (42-52); Base Excess ABG 4.4 mmol/L (-2.0-2.0); Blood Gas Allen Test Pos; Blood Gas Operator Identificat JB; Blood Gas Sample Site Radial, right; Blood Gas Sample Type Arterial; Carboxyhemoglobin 2.8 %THgb (0.4-20.1); HCO3 ABG 28.5 mmol/L (22-26); HGB O2 Sat 95.2 % (95-100); Ionized Calcium Level - ABG 1.2 mmol/L (1.1-1.4); Methemoglobin 0.5 % (0.4-1.5); Oxygen Device NC; Oxygen Saturation ABG 98.5; PO2 ABG 85.6 mmHg (80.0-100.0); Potassium Level - ABG 3.9 mmol/L (3.5-5.0); Total Hemoglobin 11.5 g/dL (14-18)
--- NOTE | 2023-06-21 21:37 | PC.NURSE ---
Patient transferred to ICU 3 at 2135, all personal belongings at bedside. Report given to RENE Regan.
--- NOTE | 2023-06-21 22:34 | P.EN_ITS ---
Event Note Event Note: I was asked to evaluate the patient because he was bradycardic On telemetry heart rate was being showed as 28 with multiple PVCs and first- degree AV block Stat EKG showed right better branch block with sinus rhythm When I evaluate the patient he was awake and alert and cracking jokes Blood sugar was around 102 Hemodynamically stable Afebrile On nasal cannula No active chest pain or shortness of breath He was able to tell me his name date of name of his girlfriend and date of of girlfriend Multiple bradycardic episodes noted decision was made to monitor him in ICU I have removed his Nitropaste Transfer to ICU Requested ABG which showed respiratory alkalosis Head CT reviewed which is unremarkable Patient does not have any focal deficit Patient is stating that his goals of care should be discussed with significant other however girlfriend does not have medical DPOA documentation, I will keep him full code,
[2023-06-22] VITALS (48 sets, daily range): BP systolic 120–185; BP diastolic 55–102; PULSE 51–99; RESP 12–26; TEMP 36.1–36.8; O2SAT 83–99
[2023-06-22] MEDS: DOPamine drip 400 MG/250 ML PREMIX 22.5 MG IV (00:18)
--- NOTE | 2023-06-22 00:35 | PC.NURSE ---
Patient had a 3 sec pause twice and drop in oxygen saturation. Heart rate dropped down to 30 then bounced back to 70 and then back down to the 40's. notified and ordered dopamine drip with a PRN order of atropine
[2023-06-22] MEDS: heparin 5,000 unit/mL INJ 1 mL 5000 UNIT SUBCUT ×2 (02:13→15:17)
[2023-06-22 03:42] LABS: Basophils # 0.1 10^3/uL (0.0-0.1); Basophils % 0.9 %; Eosinophils # 0.4 10^3/uL (0.0-0.8); Eosinophils % 3.7 %; Hematocrit 40.4 % (37-53); Lymphocytes # 0.7 10^3/uL (0.8-4.8); Lymphocytes % 6.5 %; Mean Corpuscular HGB Conc 30.2 g/dL (30-55); Mean Corpuscular Hemoglobin 26.3 pg (27-33); Mean Corpuscular Volume 87.3 fl (82-101); Monocytes # 1.1 10^3/uL (0.2-0.9); Monocytes % 10.2 %; Neutrophils # 8.49 10^3/uL (1.8-7.7); Neutrophils % 78.5 %; Nucleated Red Blood Cells % 0 %; Platelet Count 271 10^3/cmm (157-399); Red Blood Count 4.63 10^6/uL (3.85-5.65); Red Cell Distribution Width 16.8 % (12.1-15.1); White Blood Count 10.81 10^3/uL (3.29-11.43)
[2023-06-22 04:07] LABS: Alanine Aminotransferase 23 U/L (0-41); Albumin Level 3.5 g/dL (3.5-5.2); Alkaline Phosphatase 135 U/L (40-130); Anion Gap 15.2 (5-19); Aspartate Amino Transferase 12 U/L (0-40); Blood Urea Nitrogen 23 mg/dL (8-23); Calcium 9.2 mg/dL (8.5-10.5); Carbon Dioxide 27 mmol/L (22-29); Chloride 100 mmol/L (98-107); Creatinine Clr Calc Pharmacy 82.2865; Globulin 3.7 g/dL (1.3-4.6); Glomerular Filtration Rate 66.4 mL/min (90-130); Glucose 101 mg/dL (65-115); Osmolality Calculated 290 mOsm/kg (285-295); Potassium 4.2 mmol/L (3.5-5.1); Sodium 138 mmol/L (136-145); Total Bilirubin 0.6 mg/dL (0.15-1.2); Total Protein 7.2 g/dL (6.6-8.7)
[2023-06-22 04:29] LABS: ABG PCO2 51.2 mmHg (35-45); ABG PH Result 7.38 (7.35-7.45); Arterial Blood Gas Hematocrit 38.2 % (42-52); Base Excess ABG 4.4 mmol/L (-2.0-2.0); Blood Gas Allen Test Pos; Blood Gas Operator Identificat JB; Blood Gas Sample Site Radial, right; Blood Gas Sample Type Arterial; HCO3 ABG 30.5 mmol/L (22-26); Oxygen Device OXY MASK
[2023-06-22] MEDS: ciprofloxacin 400 MG/200 ML PREMIX 200 MG IV ×2 (04:45→17:18)
[2023-06-22] MEDS: aspirin 300 mg Supp PR (09:17)
--- NOTE | 2023-06-22 13:48 | PC.NURSE ---
pt significant other here he woke up started screaming at her and staff about being here. legs in position and due to ms unable to straighten by self helping pt very angry and yelling rolled to side and cleaned bottom area old decub noted cleaned of fecal material and attempt to place dressing became aggressive and yelling attempt to hit left alone at this time visitor left as he continued to be upset and angry
--- NOTE | 2023-06-22 18:30 | P.PN_ITS ---
Subjective 2 Subjective: He is lethargic but does respond to voice, oriented. Denies pain or discomfort. Vitals/I&O/Wt Last Vital Signs Temp 97 F L 06/22/23 14:00 Pulse 73 06/22/23 17:30 Resp 19 H 06/22/23 17:30 BP 164/75 06/22/23 17:30 Pulse Ox 89 L 06/22/23 17:30 O2 Del Method Nasal Cannula 06/21/23 21:47 O2 Flow Rate 4 06/21/23 20:31 06/22/23 06/22/23 06/22/23 06:59 14:59 22:59 Intake Total 66 / 746 200 / 200 200 / 400 Output Total 3000 / 5000 2000 / 2000 1500 / 3500 Balance -2934 / -4254 -1800 / -1800 -1300 / -3100 Weight last 48 hrs Weight 114.305 kg Weight 119.975 kg Physical Exam 2 Narrative: Responds to voice. Const: COMMON NORMALS: patient oriented x3; negative for alert GENERAL APPEARANCE: lethargic; not cooperative NUTRITIONAL APPEARANCE: obese ORIENTATION/CONSCIOUSNESS: Y es lethargic OTHER: No longer muttering to himself. HENMT: COMMON NORMALS: oropharynx normal OTHER: Periorbital edema improved Neck/C-Spine: COMMON NORMALS: no JVD Resp: COMMON NORMALS: normal respiratory effort and clear to auscultation bilaterally AUSCULTATION: clear to auscultation bilaterally and diminished lung sounds Cardio: COMMON NORMALS: no JVD, regular rhythm, S1 normal heart sound present, S2 normal heart sound present and No murmurs present (Cardio) RHYTHM: regular rhythm HEART SOUNDS: S1 normal heart sound present and S2 normal heart sound present GI: COMMON NORMALS: Normal to inspection, nondistended, normoactive bowel sounds present, Soft to palpation and non-tender PALPATION: Yes Soft to palpation Extremity: COMMON NORMALS: no joint enlargement OTHER: Trace lower extremity edema Neuro: COMMON NORMALS: patient oriented x3 and moves all extremities S ENSORIUM/ORIENTATION: No alert and Yes lethargic Skin: OTHER: Chronic bilateral lower extremity stasis dermatitis, mild superimposed bilateral lower extremity erythema Urinary Catheter Management: Barros: Cath Placed During This Visit: yes Reason for Continuing Indwelling Catheter: Accurate Measurement of Urinary Output in Critically Ill Patients Urinary Catheter Date of Insertion: 06/21/23 Urinary Catheter Time of Insertion: 11:15 Data 06/22/23 02:54 06/22/23 02:54 Micro: Microbiology 06/21/23 10:10 Blood Culture - Preliminary Blood NEGATIVE TO DATE 06/21/23 10:03 Blood Culture - Preliminary Blood NEGATIVE TO DATE 06/21/23 11:10 Urine Culture - Preliminary Urine,Clean Catch Gram Negative Rods A&P Assessment and plan (1) Bradycardia: Severe sinus bradycardia with sinus arrests overnight, heart rates down into 20s, was started on dopamine transferred to ICU, weaning down on dopamine, but still requiring 2.5 mcg/kg/min as heart rate still dipping down to into the 40s. Continue to hold home beta-mariel, reassess for continued improvement of bradycardia. Reviewed TSH, electrolytes. Recheck chemistry. Resume COPD medications once he is able to reliably take oral medications. Continue dopamine, monitor for risk of tachycardia, hypertension wean down as tolerating. (2) SUSHILA (acute kidney injury): SUSHILA on presentation, creatinine 1.3. Reduced urine output. He also normally self catheterizes chronically about 9 times a day if he is on diuretics. Recently with reduced urine output as per his over the last 2 days about 8 ounces of urine. Reviewed renal function, urine output, currently renal function with improvement, he is acutely polyuric in diuretic phase of recovery from SUSHILA. Likely postrenal. Seems possibly was not successful with self-catheterization possibly with beginnings of encephalopathy. Produced almost 7 L of urine so far, with improving renal function continues to be in diuretic phase. Recheck electrolytes. Will hold off scheduled Lasix for now, please reassess urine output, volume status. (3) Encephalopathy acute: With improvement, he is oriented, although still lethargic, but does answer appropriately. No longer talking to himself at least during my visit. Continue to treat UTI, optimize blood pressure. Continue hydralazine with parameters. Reviewed CT head. Acute metabolic encephalopathy with UTI as well as SUSHILA, currently with improvement in renal function in diuretic phase. He was unable to provide history, history obtained from collateral sources including ER staff, documentation, as well as his significant other. They have been together for 20 years although are not . She tells me that he gets some recurrent encephalopathy, particularly when he develops a UTI. We discussed also regarding a very elevated blood pressure. She is not sure whether he takes his medications, although he tells her that he does. She does keep an eye on his pills and did not notice that he takes too many. She does state that recently he has been taking a lot of Tylenol and ibuprofen. When he gets UTI, refuses to be taken to the hospital when ambulance arrives, progressively becomes more confused, will lay on the floor, keeps refusing until he becomes incomprehensible at which point he is taken to ED. He does not trust his significant other and in case she is trying to point out anything about his health he may become verbally belligerent and suspicious. She otherwise does not feel physically unsafe. Acute metabolic encephalopathy likely secondary to UTI, as well as hypertensive emergency with severely elevated blood pressure, some markers of demand cardiac ischemia and suspect hypertensive encephalopathy. Received hydralazine, he is somewhat bradycardic at 57, will hold beta-mariel, will give half an inch Nitropaste, 5 mg every 8 hours hydralazine IV until can reliably take oral medications. He additionally frequently leaves the hospital prematurely against medical as soon as he starts feeling better. Monitor blood pressures. Monitor on telemetry. Treat UTI. Hold tizanidine. Reassess renal function, concern for possibility of acute renal failure as his states he normally Self catheterizes about 9 times a day especially when he is on diuretics, but reports that over the last 2 days he only collected about 8 ounces of urine. (4) Systolic congestive heart failure: Started on diuretics yesterday with exacerbated congestive heart failure, however, has produced almost 7 L of urine so far, with improving renal function continues to be in diuretic phase. Recheck electrolytes. Will hold off scheduled Lasix for now, please reassess urine output, volume status. Ischemic cardiomyopathy, EF reduced at 20-25%. Acute exacerbation with lower extremity, sacral edema. Severe cardiomegaly on chest x-ray, worsening of pulmonary edema. IV diuresis with IV Lasix, monitor electrolytes, renal function, at risk of electrolyte abnormality with IV Lasix, arrhythmia, monitor on telemetry. At risk of kidney injury. Follow-up chemistry requested. Monitor weights, ROXANN. (5) UTI (urinary tract infection): Complicated UTI with acute encephalopathy. With history of MDRO infection. He also normally self catheterizes chronically about 9 times a day if he is on diuretics. Recently with reduced urine output as per his over the last 2 days about 8 ounces of urine. Acute renal failure as he has been taking ibuprofen, possibly contribution of cardiorenal, although he is maintaining blood pressure (currently very hypertensive), Barros catheter was placed in ER. Reviewed prior cultures, will start ciprofloxacin. Follow-up urine culture. No obstructive uropathy on CT. (6) Hypertensive emergency: Hypertensive emergency with encephalopathy, demand ischemia with EKG changes, moderate troponin elevation without peak, he denies chest pain. History of coronary disease with abnormal stress test during recent admission with minimal trevon-infarct ischemia at which time intervention was considered but he elected medical therapy. Received 20 mg IV hydralazine in ER, blood pressure down to 176/86, will give half inch of Nitropaste, hydralazine 5 mg 3 times daily, monitor blood pressure. Monitor on telemetry with risk of arrhythmia. Reassess mental status. Plan Self catheterizes about 9 times a day. Demand ischemia: Troponin elevation baseline 99, 2 hours 86.4, EKG with ST depression, without significant Q waves on my interpretation. Suspect secondary to hypertensive emergency, congestive heart failure. Complete troponin EKG series. Monitor telemetry. Start aspirin 325 mg KS until able to resume oral intake. Recent hospitalization: With congestive heart failure, altered mental status, possible UTI, found to have lower ejection fraction 20-25%, underwent stress test which found a large scarred/infarct area of the LV with minimal trevon- infarct ischemia, elected to continue with medical management. CHF improved with diuresis, declined to go to [facility] at discharge. Abnormal blood culture: 1 bottle with 2 organisms events with negative repeat blood culture. Additional blood cultures obtained this admission. Follow-up. Decubitus ulcer: Continue wound care. Frequent falls: Fall precautions. Chronic periorbital edema Smoking addiction: Will offer nicotine replacement when able to tolerate. Attestations 2 Medical Necessity Statement*: Continue admission for assessment management of acute encephalopathy, UTI, CHF exacerbation, diuretic phase of SUSHILA recovery with acute polyuria, uncontrolled hypertension, additional problems as above. Coding Level of Care Code Critical Care >/= 30 minutes Critical care time (in minutes): 35 The high probability of a clinically significant, sudden or life threatening deterioration, as referenced in this documentation, required my full and direct attention, intervention and personal management. The critical care time shown is in addition to time spent performing any reported separately billable procedures and includes the following: [x] Data and vital sign review and interpretation [x ] Patient assessment, examination and intervention [x] Medication orders and management [x] Patient/Family updates as able [x] Care Coordination and Documentation. Diagnoses Bradycardia R00.1 SUSHILA (acute kidney injury) N17.9 Encephalopathy acute G93.40 Systolic congestive heart failure I50.20 UTI (urinary tract infection) N39.0 Hypertensive emergency I16.1
[2023-06-22] MEDS: DOPamine drip 400 MG/250 ML PREMIX 11.25 MG IV (21:59)
[2023-06-23] VITALS (30 sets, daily range): BP systolic 124–177; BP diastolic 50–97; PULSE 47–76; RESP 11–21; TEMP 35.7–36.6; O2SAT 84–98
[2023-06-23 01:28] LABS: Basophils # 0.1 10^3/uL (0.0-0.1); Eosinophils # 0.5 10^3/uL (0.0-0.8); Eosinophils % 5.3 %; Hematocrit 38.6 % (37-53); Lymphocytes # 0.8 10^3/uL (0.8-4.8); Lymphocytes % 7.9 %; Mean Corpuscular HGB Conc 29.8 g/dL (30-55); Mean Corpuscular Hemoglobin 26.8 pg (27-33); Mean Platelet Volume 9.9 fL (7.4-10.4); Monocytes # 1.4 10^3/uL (0.2-0.9); Monocytes % 14.7 %; Neutrophils # 6.72 10^3/uL (1.8-7.7); Neutrophils % 70.9 %; Nucleated Red Blood Cells % 0 %; Platelet Count 253 10^3/cmm (157-399); Red Blood Count 4.29 10^6/uL (3.85-5.65); Red Cell Distribution Width 16.9 % (12.1-15.1); White Blood Count 9.47 10^3/uL (3.29-11.43)
[2023-06-23 01:49] LABS: Magnesium 2.1 mg/dL (1.7-2.3)
[2023-06-23 01:53] LABS: Alanine Aminotransferase 16 U/L (0-41); Albumin Level 3.2 g/dL (3.5-5.2); Alkaline Phosphatase 118 U/L (40-130); Anion Gap 12.7 (5-19); Aspartate Amino Transferase 8 U/L (0-40); Blood Urea Nitrogen 19 mg/dL (8-23); Calcium 8.9 mg/dL (8.5-10.5); Carbon Dioxide 30 mmol/L (22-29); Chloride 98 mmol/L (98-107); Creatinine Clr Calc Pharmacy 80.2533; Globulin 3.3 g/dL (1.3-4.6); Glomerular Filtration Rate 66.4 mL/min (90-130); Glucose 78 mg/dL (65-115); Osmolality Calculated 285 mOsm/kg (285-295); Potassium 3.7 mmol/L (3.5-5.1); Sodium 137 mmol/L (136-145); Total Bilirubin 0.6 mg/dL (0.15-1.2); Total Protein 6.5 g/dL (6.6-8.7)
[2023-06-23] MEDS: heparin 5,000 unit/mL INJ 1 mL 5000 UNIT SUBCUT ×2 (03:56→14:30)
[2023-06-23] MEDS: ciprofloxacin 400 MG/200 ML PREMIX 200 MG IV ×2 (04:48→16:22)
[2023-06-23] MEDS: clopidogrel 75 mg Tablet PO (10:29)
[2023-06-23] MEDS: hyDRALAzine 50 mg Tablet PO ×3 (10:29→21:11)
[2023-06-23] MEDS: aspirin 81 mg EC Tablet PO (10:30)
[2023-06-23] MEDS: famotidine 20 mg Tablet PO ×2 (10:30→17:54)
--- NOTE | 2023-06-23 12:20 | P.CONIM_ITS ---
Providers/Reason For Consult 2 Consulting Physician/Specialty*: Parish Lea MD/ Cardiology Reason for Consult*: Bradycardia Requesting Physician: Dr Pace Attending Physician: Fernando Paec MD Primary Care Provider: Esperanza eRa DO History of Present Illness History of Present Illness Armando Coleman is a 68 year old male with a limited mobility, recently had severely reduced LV systolic function with EF of 20 to 25%, had a stress test that showed minimal trevon-infarct ischemia but mostly prior infarct presented to hospital with encephalopathy. That has resolved. Cardiology consulted as patient became bradycardic and required dopamine briefly. Telemetry monitoring shows sinus bradycardia with PVCs. At time of admission troponins were elevated at 99 but trended down. He was also quite hypertensive at that time. He is now denying any chest pain. Denies shortness of breath as well. EKG showed sinus rhythm with right bundle branch block and nonspecific ST-T wave changes. Review of Systems 2 Narrative: CONSTITUTIONAL: No fever chills weight loss or gain or night sweats. [] HEENT: Normocephalic, atraumatic.[] RESPIRATORY: No cough, sputum, hemoptysis or wheezing.[] CARDIOVASCULAR: No shortness of breath, chest pain, PND, orthopnea, lower extremity edema, presyncope or syncope. [] GI: no nausea vomiting diarrhea. [] ACCOUNTS RECEIVABLE ACCOUNTANT: No numbness, tingling, weakness or loss of function in any part of the body. [] Medications/Allergies Home Medications Medication Instructions Recorded Confirmed Last Taken Type nitroglycerin 0.4 mg sublingual 0.4 mg sublingual Q5M PRN chest 04/27/19 06/21/23 1 Week Ago Rx tablet pain #30 tabs ~05/30/23 atorvastatin 40 mg tablet 40 mg PO QPM 11/22/21 06/21/23 06/05/23 History clopidogrel 75 mg tablet 75 mg PO QAM #90 tabs 11/24/21 06/21/23 1 Week Ago Rx ~05/30/23 potassium chloride 20 mEq 20 meq PO DAILY 07/08/22 06/21/23 1 Week Ago History tablet,extended release(part/cryst) ~05/30/23 tizanidine 4 mg capsule 4 mg PO QID PRN Muscle Spasm 12/11/22 06/21/23 Unknown History acetaminophen 325 mg tablet 650 mg PO QID PRN Pain 06/06/23 06/21/23 Unknown History furosemide 40 mg tablet 60 mg (1.5 x 40 mg) PO BID 30 days 06/11/23 06/21/23 1 Week Ago Rx #30 tabs ~05/30/23 hydralazine 25 mg tablet 75 mg (3 x 25 mg) PO TID 30 days 06/11/23 06/21/23 Unknown Rx #270 tabs metoprolol succinate 25 mg 25 mg PO DAILY 30 days #30 tabs 06/11/23 06/21/23 Unknown Rx tablet,extended release 24 hr Allergies Allergy/AdvReac Type Severity Reaction Status Date / Time No Known Allergies Allergy Verified 06/21/23 10:27 Current Medications Generic Name Dose Route Start Last Admin Trade Name Freq PRN Reason Stop Dose Admin Aspirin 81 mg 06/23/23 09:20 06/23/23 10:30 Aspirin 81 Mg Ec Tablet PO 81 mg DAILY ME Administration Clopidogrel Bisulfate 75 mg 06/23/23 09:20 06/23/23 10:29 Clopidogrel 75 Mg Tablet PO 75 mg QAM EM Administration Famotidine 20 mg 06/23/23 10:00 06/23/23 10:30 Famotidine 20 Mg Tablet PO 20 mg BID EM Administration Heparin Sodium (Porcine) 5,000 unit 06/21/23 14:19 06/23/23 03:56 Heparin 5,000 Unit/Ml Inj 1 Ml SUBCUT 5,000 unit Q12H EM Administration Hydralazine HCl 50 mg 06/23/23 09:58 06/23/23 10:29 Hydralazine 50 Mg Tablet PO 50 mg TID EM Administration Ciprofloxacin/Dextrose 400 mg in 200 mls @ 200 mls/hr 06/21/23 17:00 06/23/23 06:02 Cipro IV Infused Q12H EM Infusion Protocol PFSH Acute 2 PFSH: Medical History Osteomyelitis Decubitus ulcer of sacral region, unstageable Diastolic CHF Cellulitis Cardiomyopathy Falls frequently Periorbital edema of both eyes Skin ulcer Acute on chronic urinary retention Encephalopathy Lactic acidosis Hypothermia Tobacco dependency Multiple sclerosis Troponin level elevated Urinary retention Acute on chronic renal failure Chronic kidney disease Coronary artery disease Lacunar infarction Hyperlipidemia HTN (hypertension) Ischemic cardiomyopathy History of non-ST elevation myocardial infarction (NSTEMI) CHF (congestive heart failure) Surgical History Hx of colonoscopy with polypectomy History of esophagogastroduodenoscopy (EGD) Hx of heart artery stent stents x 2017- unknown vessels Family History Sister Heart disease Hypertension Myocardial infarction Mother Cancer Daughter Myocardial infarction Social History Smoking and tobacco/nicotine status: current every day tobacco/nicotine user cigarettes Packs smoked per day: 0.5 [ Other cigarette details: Cutting down] Alcohol intake: never Substance/Drug Use: unknown Adopted: No Caregiver/support person: No Lives independently: No Marital status: Single Vitals/I&O/Wt Last Vital Signs Temp 96.3 F L 06/23/23 08:00 Pulse 70 06/23/23 08:00 Resp 16 06/23/23 04:00 BP 132/57 06/23/23 08:00 Pulse Ox 97 06/23/23 08:00 O2 Del Method Room Air 06/23/23 08:00 O2 Flow Rate 4 06/21/23 20:31 06/22/23 06/23/23 06/23/23 22:59 06:59 14:59 Intake Total 504 / 704 581.375 / 1285.375 Output Total 1500 / 3500 1000 / 4500 100 / 100 Balance -996 / -2796 -418.625 / -3214.625 -100 / -100 Weight last 48 hrs Weight 244 lb 11.2 oz Weight 252 lb Weight 264 lb 8 oz Physical Exam 2 Narrative: GENERAL: Patient is alert, awake and oriented x3. [] NECK: No jugular vein distension. [] HEENT: No cyanosis. No icterus. No pallor. [] HEART: Regular S1 and S2. No murmur, rub or gallop. [] LUNGS: Clear to auscultate bilaterally. [] CENTRAL NERVOUS SYSTEM: Grossly nonfocal. [] EXTREMITIES: Lower extremities with 1+ edema Urinary Catheter Management: Barros: Cath Placed During This Visit: yes Reason for Continuing Indwelling Catheter: Accurate Measurement of Urinary Output in Critically Ill Patients Urinary Catheter Date of Insertion: 06/21/23 Urinary Catheter Time of Insertion: 11:15 Data 06/24/23 04:50 06/24/23 04:50 Micro: Microbiology 06/21/23 11:10 Urine Culture - Final Urine,Clean Catch Escherichia coli 06/21/23 10:10 Blood Culture - Preliminary Blood NEGATIVE TO DATE 06/21/23 10:03 Blood Culture - Preliminary Blood NEGATIVE TO DATE A&P Assessment and plan (1) CHF (congestive heart failure): (2) Systolic congestive heart failure: (3) Hypertensive emergency: (4) Bradycardia: Plan Patient presented with encephalopathy in setting of hypertensive urgency and UTI. Renal function has normalized now. He is denying any symptoms of chest pain. Troponin elevation was secondary to demand ischemia. Recent stress test did not show significant ischemia. LV systolic function though is severely reduced. Patient wants medical therapy which will be appropriate in setting of recent stress test. His heart rate has normalized. At this time no indication for pacemaker. Will benefit from outpatient fluoroscope operator. Keep holding rate controlling medications. Blood pressure is still borderline elevated and fluctuating. Uptitrate hydralazine to 100 mg 3 times daily. Low-sodium diet. Thank you for involving us with care of this patient. We will continue to follow. Please call with questions. Consult Attestations 2 Medical Necessity Statement: Care expected to cross 2 midnights. Coding Level of Care Code Acute Code for [facility] Fwd Diagnoses CHF (congestive heart failure) I50.9 Systolic congestive heart failure I50.20 Hypertensive emergency I16.1 Bradycardia R00.1
[2023-06-23] MEDS: NICORETTE GUM 2 EACH PO ×2 (12:37→17:54)
[2023-06-23] MEDS: acetaminophen 325 mg Tablet 650 MG PO ×2 (16:21→22:18)
--- NOTE | 2023-06-23 17:45 | P.PN_ITS ---
Subjective 2 Subjective: Hospital course, labs appreciated. On examination today patient patient is awake and alert, laying comfortably in bed. He states he is angry. Denies any nausea, vomiting, headache. Did have episodes of bradycardia with frequent VPCs overnight. He denies any dizziness. Continues to have robust urine output. Vitals/I&O/Wt Last Vital Signs Temp 97.8 F 06/23/23 16:56 Pulse 70 06/23/23 14:00 Resp 16 06/23/23 04:00 BP 158/71 06/23/23 12:30 Pulse Ox 94 06/23/23 12:30 O2 Del Method Nasal Cannula 06/23/23 12:30 O2 Flow Rate 2 06/23/23 12:30 06/23/23 06/23/23 06/23/23 06:59 14:59 22:59 Intake Total 581.375 / 1285.375 300 / 300 Output Total 1000 / 4500 200 / 200 Balance -418.625 / -3214.625 100 / 100 Weight last 48 hrs Weight 110.994 kg Weight 114.305 kg Physical Exam 2 Const: COMMON NORMALS: no acute distress, patient oriented x3 and alert G ENERAL APPEARANCE: cooperative and comfortable NUTRITIONAL APPEARANCE: obese ORIENTATION/CONSCIOUSNESS: Yes awake and Yes confused HENMT: COMMON NORMALS: oropharynx normal OTHER: Periorbital edema improved Neck/C-Spine: COMMON NORMALS: no JVD Resp: COMMON NORMALS: normal respiratory effort and clear to auscultation bilaterally AUSCULTATION: clear to auscultation bilaterally and diminished lung sounds Cardio: COMMON NORMALS: no JVD, regular rhythm, S1 normal heart sound present, S2 normal heart sound present and No murmurs present (Cardio) RHYTHM: regular rhythm HEART SOUNDS: S1 normal heart sound present and S2 normal heart sound present GI: COMMON NORMALS: Normal to inspection, nondistended, normoactive bowel sounds present, Soft to palpation and non-tender PALPATION: Yes Soft to palpation Extremity: COMMON NORMALS: no joint enlargement OTHER: Trace lower extremity edema Neuro: COMMON NORMALS: patient oriented x3 and moves all extremities S ENSORIUM/ORIENTATION: Yes alert Skin: OTHER: Chronic bilateral lower extremity stasis dermatitis, mild superimposed bilateral lower extremity erythema Urinary Catheter Management: Barros: Cath Placed During This Visit: yes Reason for Continuing Indwelling Catheter: Accurate Measurement of Urinary Output in Critically Ill Patients Urinary Catheter Date of Insertion: 06/21/23 Urinary Catheter Time of Insertion: 11:15 Data 06/23/23 01:00 06/23/23 01:00 Micro: Microbiology 06/21/23 11:10 Urine Culture - Final Urine,Clean Catch Escherichia coli A&P Assessment and plan (1) Bradycardia: Heart rates trending down to 40s. In setting of frequent VPCs. Keep potassium around 4, magnesium around 2. Continue to hold off on metoprolol. Has been off dopamine since yesterday. Appreciate electrolytes and TSH. Patient does have recent positive stress test with mild trevon-infarct ischemia in RCA and LCx territory. Will consult cardiology for further recommendation though most likely patient will get medical treatment. (2) SUSHILA (acute kidney injury): Resolved. Creatinine down to 1.1. Most likely in setting of urinary retention as patient could not self catheterize when confused. Robust urine output. Patient euvolemic. Hold off on any further IV diuresis and fluid for now. Restart oral diuretic. Continue with Barros catheterization. (3) Encephalopathy acute: Resolving. Patient seems to be back to his baseline. Could have been in setting of UTI along with SUSHILA on admission. Cannot rule out in setting of significant bradycardia. Continue to monitor. Continue holding tizanidine. (4) Systolic congestive heart failure: Euvolemic now. Recent echocardiogram showed EF down to 2025%. Hold off on diuresis for now. Will reassess regularly. Strict input output charting. For now hold off on fluid restrictions. (5) UTI (urinary tract infection): Complicated UTI. History of self-catheterization. Urine culture growing E. coli. Appreciate sensitivities. Continue with current IV antibiotics. Will transition over to oral antibiotics on discharge to finish the antibiotic course for all 7 days. (6) Hypertensive emergency: Hypertensive emergency with encephalopathy, demand ischemia with EKG changes, moderate troponin elevation without peak, he denies chest pain. History of coronary disease with abnormal stress test during recent admission with minimal trevon-infarct ischemia at which time intervention was considered but he elected medical therapy. Goal blood pressure less than 140/90 mmHg. Blood pressure is again trending up today. Restart hydralazine 50 mg 3 times a day. Will uptitrate as for goal blood pressures. Continue with IV hydralazine as needed for systolic blood pressure of more than 160 mmHg. Plan Demand ischemia: Most likely in setting of hypertensive emergency. Recent positive stress test. Denies any active chest pain. Restart aspirin 81 mg daily, Plavix 75 mg daily, statins. Cardiology consultation as above. Decubitus ulcer: Continue wound care. Frequent falls: Fall precautions. Chronic periorbital edema Smoking addiction: Will offer nicotine replacement when able to tolerate. Full code. Restart cardiac diet. Heparin 5000 every 12 hourly for DVT prophylaxis Famotidine for PUD prophylaxis Attestations 2 Medical Necessity Statement*: Requires further hospitalization for management of congestive heart failure, significant bradycardia, encephalopathy in setting of hypertensive encephalopathy, UTI Diagnoses Bradycardia R00.1 SUSHILA (acute kidney injury) N17.9 Encephalopathy acute G93.40 Systolic congestive heart failure I50.20 UTI (urinary tract infection) N39.0 Hypertensive emergency I16.1
[2023-06-23] MEDS: atorvastatin 40 mg Tablet PO (17:54)
--- NOTE | 2023-06-23 18:22 | PC.NURSE ---
Shift Summary: Uneventful shift patient has rested in bed throughout the day. Heart rate has been within normal limits with occaisonal PVCs. Hypertensive at beginning of shift, but improved after po hydralazine started. Total urine output has been 200mL. Physician notified of low urine output.
--- NOTE | 2023-06-23 22:05 | PC.NURSE ---
Offered to turn and reposition patient and he refused. Patient educated on the importance of repositioning and still refusing.
[2023-06-24] VITALS (14 sets, daily range): BP systolic 116–160; BP diastolic 67–102; PULSE 59–78; RESP 12–20; TEMP 36.4–37.1; O2SAT 86–97
[2023-06-24] MEDS: heparin 5,000 unit/mL INJ 1 mL 5000 UNIT SUBCUT (01:50)
[2023-06-24] MEDS: clopidogrel 75 mg Tablet PO (05:04)
[2023-06-24] MEDS: ciprofloxacin 400 MG/200 ML PREMIX 200 MG IV (05:04)
[2023-06-24 05:47] LABS: Basophils # 0.1 10^3/uL (0.0-0.1); Basophils % 0.8 %; Eosinophils # 0.7 10^3/uL (0.0-0.8); Hematocrit 36.8 % (37-53); Lymphocytes # 1.1 10^3/uL (0.8-4.8); Lymphocytes % 14.6 %; Mean Corpuscular Hemoglobin 26.8 pg (27-33); Mean Corpuscular Volume 86.4 fl (82-101); Mean Platelet Volume 10.4 fL (7.4-10.4); Monocytes # 1.2 10^3/uL (0.2-0.9); Monocytes % 15.2 %; Neutrophils # 4.65 10^3/uL (1.8-7.7); Neutrophils % 60.1 %; Nucleated Red Blood Cells % 0 %; Platelet Count 236 10^3/cmm (157-399); Red Blood Count 4.26 10^6/uL (3.85-5.65); Red Cell Distribution Width 16.9 % (12.1-15.1); White Blood Count 7.74 10^3/uL (3.29-11.43)
[2023-06-24 06:22] LABS: Alanine Aminotransferase 12 U/L (0-41); Albumin Level 3.2 g/dL (3.5-5.2); Alkaline Phosphatase 115 U/L (40-130); Anion Gap 12.9 (5-19); Aspartate Amino Transferase 7 U/L (0-40); Blood Urea Nitrogen 24 mg/dL (8-23); Calcium 8.5 mg/dL (8.5-10.5); Carbon Dioxide 27 mmol/L (22-29); Chloride 102 mmol/L (98-107); Creatinine Clr Calc Pharmacy 72.9693; Globulin 3.4 g/dL (1.3-4.6); Glucose 97 mg/dL (65-115); Osmolality Calculated 290 mOsm/kg (285-295); Potassium 3.9 mmol/L (3.5-5.1); Sodium 138 mmol/L (136-145); Total Bilirubin 0.6 mg/dL (0.15-1.2); Total Protein 6.6 g/dL (6.6-8.7)
--- NOTE | 2023-06-24 07:42 | P.PN_ITS ---
Subjective 2 Subjective: Patient is doing well. no chest pain. Vitals/I&O/Wt Last Vital Signs Temp 97.6 F 06/24/23 04:37 Pulse 59 L 06/24/23 05:48 Resp 12 06/24/23 04:00 BP 160/75 06/24/23 04:00 Pulse Ox 93 06/24/23 04:00 O2 Del Method Nasal Cannula 06/23/23 12:30 O2 Flow Rate 2 06/23/23 12:30 06/23/23 06/24/23 06/24/23 22:59 06:59 14:59 Intake Total 500 / 800 200 / 1000 Output Total 400 / 600 Balance 500 / 600 -200 / 400 Weight last 48 hrs Weight 248 lb Weight 244 lb 11.2 oz Physical Exam 2 Narrative: GENERAL: Patient is alert, awake and oriented x3. [] NECK: No jugular vein distension. [] HEENT: No cyanosis. No icterus. No pallor. [] HEART: Regular S1 and S2. No murmur, rub or gallop. [] LUNGS: Clear to auscultate bilaterally. [] CENTRAL NERVOUS SYSTEM: Grossly nonfocal. [] EXTREMITIES: Lower extremities with 1+ edema Urinary Catheter Management: Barros: Cath Placed During This Visit: yes Reason for Continuing Indwelling Catheter: Accurate Measurement of Urinary Output in Critically Ill Patients Urinary Catheter Date of Insertion: 06/21/23 Urinary Catheter Time of Insertion: 11:15 Data 06/24/23 04:50 06/24/23 04:50 Micro: Microbiology 06/21/23 11:10 Urine Culture - Final Urine,Clean Catch Escherichia coli A&P Assessment and plan (1) CHF (congestive heart failure): (2) Systolic congestive heart failure: (3) Hypertensive emergency: (4) Bradycardia: Plan Patient is stable. Stable to be discharged from cardiac standpoint. Heart rate staying stable. Attestations 2 Medical Necessity Statement*: Care expected to cross 2 midnights. Coding Level of Care Code Acute Code for [facility] Diagnoses CHF (congestive heart failure) I50.9 Systolic congestive heart failure I50.20 Hypertensive emergency I16.1 Bradycardia R00.1
[2023-06-24] MEDS: NICORETTE GUM 2 EACH PO ×2 (08:38→14:54)
[2023-06-24] MEDS: hyDRALAzine 50 mg Tablet PO ×2 (08:59→15:10)
[2023-06-24] MEDS: aspirin 81 mg EC Tablet PO (08:59)
[2023-06-24] MEDS: famotidine 20 mg Tablet PO (08:59)
[2023-06-24] MEDS: FUROsemide 40 mg Tablet PO ×2 (12:02→15:10)
--- NOTE | 2023-06-24 14:27 | PM.DCS ---
Discharge Providers Date of Admission: 06/21/23 12:43 Date of Discharge: June 24, 2023 Attending Provider at Admission: David Rome Attending Provider at Discharge: Fernando Pace MD Consults: Cardiology: Dr. Lea Primary Care Provider: Esperanza Self DO Diagnoses at Discharge Discharge Diagnosis (1) CHF (congestive heart failure): Status: Acute (2) Systolic congestive heart failure: Status: Acute (3) Hypertensive emergency: Status: Acute (4) Bradycardia: Status: Acute Reason for Visit Reason for Visit: AMS Brief History: 68-year-old gentleman is brought in for evaluation due to confusion, was reportedly combative with EMS, continually saying shut up , mumbling, not making sense, disheveled, covered in feces and urine, redness on bilateral lower extremities with swelling in addition to orbital and sacral edema. In ER without focal abnormality. He is unable to give history, history provided from collateral sources including ER staff and documentation, on entering the room he is talking to himself with random words, but when spoken to does respond, denies pain, denies headache, does trail off somewhat states he was having some pain in his arms earlier and that he takes muscle relaxers 1 pill every few hours . Did not really answer other questions. Did not participate in examination but was not combative and allowed a limited exam. On presentation he is very hypertensive, 208/115. Hospital Course Hospital Course Patient was admitted to the ICU for further evaluation and management of altered mental status which on first was thought to be due to acute infectious metabolic encephalopathy from UTI versus acute hypertensive encephalopathy. On admission he was also found to be in acute kidney injury with concerns for urinary retention. Barros catheter was placed and around 1 L of urine was evacuated. He was continued on IV diuresis, IV antibiotics and he received IV antihypertensives at first to maintain his blood pressures. Patient responded well to the treatment and kidney functions resolved and his blood pressures improved. Patient's mentation also came back to its baseline. Blood cultures remain negative though urine culture remained positive for pansensitive E. coli. Her hospitalization was complicated by him developing episodes of sinus pauses on monitoring manager. Cardiology was consulted. His home dose of metoprolol was discontinued and his heart rate has been stable. Patient requires further hospitalization for further monitoring and diuresis but he is adamant on discharge. Safe discharge planning was again discussed in detail with the patient and his life partner over the phone. This time patient was unable to Home oxygen evaluation and was agreeable to wear oxygen at home. He has been discharged in hemodynamically stable condition on oral Lasix 40 mg twice daily, hydralazine 75 mg twice daily, oral Levaquin for 7 days. His dose of tizanidine has been decreased to 2 mg as needed and metoprolol has been withheld. He has been discharged with Barros catheter in place with advised to follow-up with urology as an outpatient. If Barros catheter remains in for more than 1 month it should be replaced. Patient remains at high risk of readmission because of noncompliance. Physical Exam Const: COMMON NORMALS: no acute distress, patient oriented x3 and alert GENERAL APPEARANCE: cooperative and comfortable NUTRITIONAL APPEARANCE: obese ORIENTATION/CONSCIOUSNESS: Yes awake and Yes confused HENMT: COMMON NORMALS: oropharynx normal OTHER: Periorbital edema improved Neck/C-Spine: COMMON NORMALS: no JVD Resp: COMMON NORMALS: normal respiratory effort and clear to auscultation bilaterally AUSCULTATION: clear to auscultation bilaterally and diminished lung sounds Cardio: COMMON NORMALS: no JVD, regular rhythm, S1 normal heart sound present, S2 normal heart sound present and No murmurs present (Cardio) RHYTHM: regular rhythm HEART SOUNDS: S1 normal heart sound present and S2 normal heart sound present GI: COMMON NORMALS: Normal to inspection, nondistended, normoactive bowel sounds present, Soft to palpation and non-tender PALPATION: Yes Soft to palpation Extremity: COMMON NORMALS: no joint enlargement OTHER: Trace lower extremity edema Neuro: COMMON NORMALS: patient oriented x3 and moves all extremities SENSORIUM/ORIENTATION: Yes alert Skin: OTHER: Chronic bilateral lower extremity stasis dermatitis, mild superimposed bilateral lower extremity erythema Urinary Catheter Management: Barros: Cath Placed During This Visit: yes Reason for Continuing Indwelling Catheter: Accurate Measurement of Urinary Output in Critically Ill Patients Urinary Catheter Date of Insertion: 06/21/23 Urinary Catheter Time of Insertion: 11:15 Discharge Data Studies Completed and Pending Completed Studies During Hospitalization Category Date Time Status CT abdomen pelvis w con* [id number] Stat Cat Scan 06/21/23 09:[address] head wo con* [id number] Routine Cat Scan 06/21/23 15:56 Completed XR chest 1V portable [id number] Stat Exams 06/21/23 09:58 Completed Pending at discharge Category Date Time Status Blood Culture Stat Lab 06/21/23 10:10 Results Radiology Impressions Chest X-Ray 06/21/23 09:58 IMPRESSION: CHF. There has been slight interval worsening of pulmonary edema over the past [address] 06/21/23 15:56 IMPRESSION: 1. No acute findings. 2. Cerebral atrophy is noted along with chronic white matter ischemic changes. Laboratory Results WBC 7.74 10^3/uL (3.29-11.43) 06/24/23 04:50 RBC 4.26 10^6/uL (3.85-5.65) 06/24/23 04:50 Hgb 11.40 g/dL (11.27-16.99) 06/24/23 04:50 Hct 36.8 % (37-53) L 06/24/23 04:50 MCV 86.4 fl (82-101) 06/24/23 04:50 MCH 26.8 pg (27-33) L 06/24/23 04:50 MCHC 31.0 g/dL (30-55) 06/24/23 04:50 RDW 16.9 % (12.1-15.1) H 06/24/23 04:50 Plt Count 236 10^3/cmm (157-399) 06/24/23 04:50 MPV 10.4 fL (7.4-10.4) 06/24/23 04:50 Neut % (Auto) 60.1 % 06/24/23 04:50 Lymph % (Auto) 14.6 % 06/24/23 04:50 [place] % (Auto) 15.2 % 06/24/23 04:50 Eos % (Auto) 9.0 % 06/24/23 04:50 Baso % (Auto) 0.8 % 06/24/23 04:50 Neut # (Auto) 4.65 10^3/uL (1.8-7.7) 06/24/23 04:50 Lymph # (Auto) 1.1 10^3/uL (0.8-4.8) 06/24/23 04:50 [place] # (Auto) 1.2 10^3/uL (0.2-0.9) H 06/24/23 04:50 Eos # (Auto) 0.7 10^3/uL (0.0-0.8) 06/24/23 04:50 Baso # (Auto) 0.1 10^3/uL (0.0-0.1) 06/24/23 04:50 Nucleated RBC % (auto) 0 % 06/24/23 04:50 Nucleated RBCs # 0.0 /100WBC 06/24/23 04:50 Specimen Type Arterial 06/22/23 04:04 Sample Site Radial, right 06/22/23 04:04 ABG pH 7.38 (7.35-7.45) 06/22/23 04:04 ABG pCO2 51.2 mmHg (35-45) H 06/22/23 04:04 ABG pO2 76.0 mmHg (80.0-100.0) L 06/22/23 04:04 ABG HCO3 30.5 mmol/L (22-26) H 06/22/23 04:04 ABG O2 Saturation 98.5 06/21/23 20:34 ABG Base Excess 4.4 mmol/L (-2.0-2.0) H 06/22/23 04:04 Adonis Test Pos 06/22/23 04:04 A-a O2 Gradient 1.8 mmHg (5-10) L 06/21/23 20:34 Hematocrit 38.2 % (42-52) L 06/22/23 04:04 Hgb O2 Saturation 95.2 % (95-100) 06/21/23 20:34 Carboxyhemoglobin 2.8 %THgb (0.4-20.1) 06/21/23 20:34 Methemoglobin 0.5 % (0.4-1.5) 06/21/23 20:34 Total Hemoglobin 11.5 g/dL (14-18) L 06/21/23 20:34 Sodium 139.0 mmol/L (131-143) 06/21/23 20:34 Potassium 3.9 mmol/L (3.5-5.0) 06/21/23 20:34 Glucose 98.0 mg/dL (70-115) 06/21/23 20:34 Ionized Calcium 1.2 mmol/L (1.1-1.4) 06/21/23 20:34 O2 Delivery Device Oxy mask 06/22/23 04:04 Sanitarian Inspector ID Guillermo 06/22/23 04:04 Sodium 138 mmol/L (136-145) 06/24/23 04:50 Potassium 3.9 mmol/L (3.5-5.1) 06/24/23 04:50 Chloride 102 mmol/L (98-107) 06/24/23 04:50 Carbon Dioxide 27 mmol/L (22-29) 06/24/23 04:50 Anion Gap 12.9 (5-19) 06/24/23 04:50 BUN 24 mg/dL (8-23) H 06/24/23 04:50 Creatinine 1.2 mg/dL (0.7-1.2) 06/24/23 04:50 GFR Calculation 60.0 mL/min (90-130) L 06/24/23 04:50 Glucose 97 mg/dL (65-115) 06/24/23 04:50 POC Glucose 102 mg/dL (70-110) 06/21/23 20:30 Calculated Osmolality 290 mOsm/kg (285-295) 06/24/23 04:50 Calcium 8.5 mg/dL (8.5-10.5) 06/24/23 04:50 Magnesium 2.1 mg/dL (1.7-2.3) 06/23/23 01:00 Total Bilirubin 0.6 mg/dL (0.15-1.2) 06/24/23 04:50 AST 7 U/L (0-40) 06/24/23 04:50 ALT 12 U/L (0-41) 06/24/23 04:50 Alkaline Phosphatase 115 U/L (40-130) 06/24/23 04:50 Creatine Kinase 77 U/L (39-308) 06/21/23 12:12 Troponin T Baseline 99 ng/L (0-15) H 06/21/23 10:03 Troponin T 120 Minute 86.45 ng/L (0-15) H 06/21/23 12:12 Delta Troponin T -12.55 ABS# (0-10) L 06/21/23 12:12 Troponin T Hi Sens 6Hr 78.34 ng/L (0-15) H 06/21/23 16:10 Troponin T Hi Sens 6Hr Delta -20.66 ng/L (0-12) L 06/21/23 16:10 NT-Pro-B Natriuret Pep 28778 pg/mL (0-125) H 06/21/23 10:03 Total Protein 6.6 g/dL (6.6-8.7) 06/24/23 04:50 Albumin 3.2 g/dL (3.5-5.2) L 06/24/23 04:50 Globulin 3.4 g/dL (1.3-4.6) 06/24/23 04:50 Lipase 12 U/L (13-60) L 06/21/23 10:03 TSH 1.92 uIU/mL (0.27-4.20) 06/21/23 12:12 Urine Color Yellow (Yellow) 06/21/23 11:10 Urine Appearance Hazy (CLEAR) A 06/21/23 11:10 Urine pH 6 (5-7) 06/21/23 11:10 Ur Specific [place] 1.015 (1.005-1.030) 06/21/23 11:10 Urine Protein 2+ (Negative) H 06/21/23 11:10 Urine Glucose (UA) Norm (Normal) 06/21/23 11:10 Urine Ketones Negative (Negative) 06/21/23 11:10 Urine Blood Neg (Negative) 06/21/23 11:10 Urine Nitrate Negative (Negative) 06/21/23 11:10 Urine Bilirubin Neg (Negative) 06/21/23 11:10 Urine Urobilinogen 1 mg/dL (Negative) H 06/21/23 11:10 Ur Leukocyte Esterase 1+ (Negative) H 06/21/23 11:10 Urine RBC None /hpf (0-2) 06/21/23 11:10 Urine WBC 15-25 /hpf (0-5) H 06/21/23 11:10 Ur Squamous Epith Cells Rare /hpf (0-5) 06/21/23 11:10 Amorphous Sediment Not Reportable 06/21/23 11:10 Urine Bacteria 4+ /hpf (NONE) H 06/21/23 11:10 Salicylates 1.6 mg/dL (3-10) L 06/21/23 12:12 Urine Opiates Screen Negative ng/mL (Negative) 06/21/23 11:10 Acetaminophen < 5.0 ug/mL (10-30) L 06/21/23 12:12 Ur Barbiturates Screen Negative ng/mL (Negative) 06/21/23 11:10 Ur Phencyclidine Scrn Negative ng/mL (Negative) 06/21/23 11:10 Ur Amphetamines Screen Negative ng/mL (Negative) 06/21/23 11:10 U Benzodiazepines Scrn Negative ng/mL (Negative) 06/21/23 11:10 Urine Cocaine Screen Negative ng/mL (Negative) 06/21/23 11:10 U Marijuana (THC) Screen Negative ng/mL (Negative) 06/21/23 11:10 Ethyl Alcohol < 10 mg/dL (0-10) 06/21/23 12:12 Serum Ketones Negative (Negative) 06/21/23 10:03 Vitals Last Vital Signs Temp 97.6 F 06/24/23 04:37 Pulse 63 06/24/23 12:00 Resp 16 06/24/23 12:00 BP 160/73 06/24/23 12:00 Pulse Ox 86 L 06/24/23 12:00 O2 Del Method Nasal Cannula 06/24/23 09:10 O2 Flow Rate 2 06/24/23 09:10 Discharge Plan Discharge Patient Disposition: Home Condition: Stable Prescriptions: New aspirin 81 mg Tablet,Delayed Release (Dr/Ec) 81 mg PO DAILY Qty: 30 0RF levofloxacin 500 mg tablet 500 mg PO Q24H 7 Days Qty: 7 0RF Continued nitroglycerin 0.4 mg tablet, sublingual 0.4 mg SUBLINGUAL Q5M PRN (Reason: chest pain) Qty: 30 4RF Rx Instructions: until response; do not exceed 3 doses per episode potassium chloride 20 mEq tablet,ER particles/crystals 20 meq PO DAILY atorvastatin 40 mg tablet 40 mg PO QPM clopidogrel 75 mg tablet 75 mg PO QAM Qty: 90 0RF acetaminophen 325 mg Tablet 650 mg PO QID PRN (Reason: Pain) hydralazine 25 mg Tablet 75 mg PO TID 30 Days Qty: 270 0RF Changed furosemide 40 mg tablet 40 mg PO BID 30 Days Qty: 30 0RF tizanidine 4 mg capsule 2 mg PO QID PRN (Reason: Muscle Spasm) Qty: 10 0RF Discontinued metoprolol succinate 25 mg Tablet Extended Release 24 Hr 25 mg PO DAILY 30 Days Qty: 30 0RF Discharge Orders: Discharge Order (Routine); Ordered 06/24/23 Ordered By: Anette Jones Other Ambulatory Orders: DME: Oxygen (Order) Location: None Selected Ordered By: Fernando Pace Referrals: Kylie Vogel [Referring] - 06/25/23 2:00 pm (You have a hospital follow up with Dr self tomorrow 06/24 at 2:00pm if you are not ble to keep this appointment please contact your provide to arrange your care.) Discharge Diet: Usual diet Discharge Activity: Resume usual activity Patient Instructions: Hypertension, Heart Failure (DC), Urinary Tract Infection in Men (DC), Altered Mental Status (ED), CHF Stoplight, Opioid Safety Activity Restrictions/Additional Instructions: Do not take metoprolol anymore. Take Lasix 40 mg twice daily. Restrict fluid intake to less than 1500 cc, salt intake to less than 2 g daily. Advised to check his weight daily at home. Is advised that weight today would be the dry weight and if body weight increases by around 5 pounds, patient is to take an extra dose of Lasix daily till body weight comes down to weight today. If not able to come down to dry body weight in 1 week, then is to call cardiology office for further recommendations. Patient was counseled in detail to take medications regularly as prescribed. Please follow-up with a primary care provider onsite appointment. Please follow-up with urology within next 2 weeks. The Barros catheter remains in place for more than 1 month it should be replaced. Discharge Attestations Time Spent in Discharge Care*: greater than 30 min Specific Discharge Activities: educating patient, educating and/or supporting family/caregiver, discussing with pcp/other providers, discussing with hospice case manager/social workers/dc planners, documenting/other paperwork and evaluating patient/reviewing data Status at Discharge: Cognitive status at discharge: cognitively intact, Behavioral status at discharge: cooperative and can be uncooperative, Functional status at discharge: wheelchair bound, Overall status at discharge: patient is back to baseline Quality Metrics Clinical Quality Measures [ No reported AMI, CVA or VTE this stay] Coding Level of Care Code 33878 Total time (in minutes) for Discharge: 60 Diagnoses CHF (congestive heart failure) I50.9 Systolic congestive heart failure I50.20 Hypertensive emergency I16.1 Bradycardia R00.1
--- NOTE | 2023-06-24 17:00 | PC.NURSE ---
Discharge Note Patient discharged to [home] via [w/c to [employer] transport van] accompanied by [[employer] ground transportation operator]. Discharge instructions reviewed with patient and/or outside medical sales representative. Mobile pharmacy medications and/or prescriptions provided. Belongings/home medications returned.
== END 2023-06-24 16:45 | disposition home or self-care (01) | DRG 70 ==
LOC: ER 13:32 → MEDSURG 13:51 → ICU 21:32
PROVIDERS: Internal Medicine; Admitting Provider Internal Medicine; Emergency Provider Family Medicine; PCP Family Medicine; Visit Provider Student in an Organized Health Care Education/Training Program
DX: G93.41 Metabolic encephalopathy (principal); I50.23 Acute on chronic systolic (congestive) heart failure; I16.1 Hypertensive emergency; N17.9 Acute kidney failure, unspecified; N39.0 Urinary tract infection, site not specified; I11.0 Hypertensive heart disease with heart failure; R00.1 Bradycardia, unspecified; F17.210 Nicotine dependence, cigarettes, uncomplicated; L89.159 Pressure ulcer of sacral region, unspecified stage; J44.9 Chronic obstructive pulmonary disease, unspecified; B96.20 Unspecified Escherichia coli [E. coli] as the cause of diseases classified elsewhere; R29.6 Repeated falls; I45.5 Other specified heart block
CPT/HCPCS: 36415; 36416; 36600; 51702; 70450; 71045; 74177; 80051; 80053; 80306; 80307; 81001; 82009; 82330; 82550; 82803; 82805; 82962; 83690; 83735; 83880; 84443; 84484; 85025; 87040; 87077; 87086; 87186; 93005; 94760; 96372; 96374; 99285; J0360; J0744; J1265; J1644; J1940; Q9967

== ENCOUNTER 2023-06-28 10:58 | Emergency (ER) | payer MEDICARE, MEDICAID, SELFPAY ==
[2023-06-28 11:00] VITALS: BP 144/78; PULSE 54; RESP 16; TEMP 36.6; O2SAT 94; BMI 28.7
--- NOTE | 2023-06-28 11:15 | ED_ITS ---
HPI - Male Genitourinary 2 General: Chief complaint: Urogenital-Male Stated complaint: PULLED OUT BORRERO Time Seen by Provider: 06/28/23 11:00 History of Present Illness: Patient presents to the ER with complaints that he pulled his catheter out. Patient states he is catheter was not working so he pulled it out. Patient is able to self cath. Patient stated when he done it last night he got a large volume of urine out. Patient's penis is bleeding but it is controlled today from where he pulled his catheter out today. Patient does not want a catheter placed back he just says he will self cath. Patient is worried about his kidneys since he says he is not producing much urine and does not think the catheter is working. Review of Systems 2 General: Reports: 10 or more systems reviewed and unremarkable except in HPI and below PFSH ED 2 PFSH: Medical History Osteomyelitis Decubitus ulcer of sacral region, unstageable Diastolic CHF Cellulitis Cardiomyopathy Falls frequently Periorbital edema of both eyes Skin ulcer Acute on chronic urinary retention Encephalopathy Lactic acidosis Hypothermia Tobacco dependency Multiple sclerosis Troponin level elevated Urinary retention Acute on chronic renal failure Chronic kidney disease Coronary artery disease Lacunar infarction Hyperlipidemia HTN (hypertension) Ischemic cardiomyopathy History of non-ST elevation myocardial infarction (NSTEMI) CHF (congestive heart failure) Surgical History Hx of colonoscopy with polypectomy History of esophagogastroduodenoscopy (EGD) Hx of heart artery stent stents x 2017- unknown vessels Family History Sister Heart disease Hypertension Myocardial infarction Mother Cancer Daughter Myocardial infarction Social History Smoking and tobacco/nicotine status: current every day tobacco/nicotine user cigarettes Packs smoked per day: 0.5 [ Other cigarette details: Cutting down] Alcohol intake: never Substance/Drug Use: unknown Adopted: No Caregiver/support person: No Lives independently: No Marital status: Single Physical Exam 2 Const: COMMON NORMALS: no acute distress, average body habitus, patient oriented x3, no limitations, healthy appearing, alert and well nourished Neck/C-Spine: COMMON NORMALS: no JVD Chest: COMMONS NORMALS: normal inspection of the chest and normal palpation of entire chest wall Resp: COMMON NORMALS: normal respiratory effort, No retractions, No use of accessory muscles and clear to auscultation bilaterally AUSCULTATION: clear to auscultation bilaterally Cardio: COMMON NORMALS: no JVD, regular rate, regular rhythm, S1 normal heart sound present, S2 normal heart sound present, No gallops present (Cardio), No clicks present (Cardio), No murmurs present (Cardio) and No rub (Cardio) R ATE: regular rate RHYTHM: regular rhythm HEART SOUNDS: S1 normal heart sound present and S2 normal heart sound present GI: COMMON NORMALS: Normal to inspection, nondistended, normoactive bowel sounds present, Soft to palpation, non-tender, No hepatosplenomegaly present and no masses PALPATION: Yes Soft to palpation and Yes No hepatosplenomegaly present : OTHER: Genital exam noted patient has a split urethra, fresh blood and clotted blood noted around genitals. Bleeding is controlled. Neuro: COMMON NORMALS: patient oriented x3 SENSORIUM/ORIENTATION: Yes alert Course 2 Vital Signs: Vital signs: Vital Signs Temperature 97.8 F 06/28/23 11:00 Pulse Rate 84 06/28/23 13:16 Respiratory Rate 16 06/28/23 11:00 Blood Pressure 165/105 06/28/23 13:16 Pulse Oximetry 91 06/28/23 13:16 Oxygen Delivery Me thod Room Air 06/28/23 11:00 MDM - Male Medical Decision Making Lab work was obtained to include CBC CMP. Patient's hemoglobin was stable at 11.3 BUN/creatinine was good at 21 and 1.3. Borrero catheter was not replaced as patient can self cath. Patient be discharged home. Lab Data 06/28/23 11:34 06/28/23 11:34 Laboratory Results WBC 8.45 10^3/uL (3.29-11.43) 06/28/23 11:34 RBC 4.25 10^6/uL (3.85-5.65) 06/28/23 11:34 Hgb 11.30 g/dL (11.27-16.99) 06/28/23 11:34 Hct 37.7 % (37-53) 06/28/23 11:34 MCV 88.7 fl (82-101) 06/28/23 11:34 MCH 26.6 pg (27-33) L 06/28/23 11:34 MCHC 30.0 g/dL (30-55) 06/28/23 11:34 RDW 16.7 % (12.1-15.1) H 06/28/23 11:34 Plt Count 167 10^3/cmm (157-399) 06/28/23 11:34 MPV 10.1 fL (7.4-10.4) 06/28/23 11:34 Neut % (Auto) 73.2 % 06/28/23 11:34 Lymph % (Auto) 9.7 % 06/28/23 11:34 [place] % (Auto) 6.7 % 06/28/23 11:34 Eos % (Auto) 9.1 % 06/28/23 11:34 Baso % (Auto) 1.1 % 06/28/23 11:34 Neut # (Auto) 6.18 10^3/uL (1.8-7.7) 06/28/23 11:34 Lymph # (Auto) 0.8 10^3/uL (0.8-4.8) 06/28/23 11:34 [place] # (Auto) 0.6 10^3/uL (0.2-0.9) 06/28/23 11:34 Eos # (Auto) 0.8 10^3/uL (0.0-0.8) 06/28/23 11:34 Baso # (Auto) 0.1 10^3/uL (0.0-0.1) 06/28/23 11:34 Nucleated RBC % (auto) 0 % 06/28/23 11:34 Nucleated RBCs # 0.0 /100WBC 06/28/23 11:34 Sodium 137 mmol/L (136-145) 06/28/23 11:34 Potassium 4.4 mmol/L (3.5-5.1) 06/28/23 11:34 Chloride 100 mmol/L (98-107) 06/28/23 11:34 Carbon Dioxide 29 mmol/L (22-29) 06/28/23 11:34 Anion Gap 12.4 (5-19) 06/28/23 11:34 BUN 21 mg/dL (8-23) 06/28/23 11:34 Creatinine 1.3 mg/dL (0.7-1.2) H 06/28/23 11:34 GFR Calculation 54.7 mL/min (90-130) L 06/28/23 11:34 Glucose 102 mg/dL (65-115) 06/28/23 11:34 Calculated Osmolality 287 mOsm/kg (285-295) 06/28/23 11:34 Calcium 8.1 mg/dL (8.5-10.5) L 06/28/23 11:34 Total Bilirubin 0.4 mg/dL (0.15-1.2) 06/28/23 11:34 AST 10 U/L (0-40) 06/28/23 11:34 ALT 10 U/L (0-41) 06/28/23 11:34 Alkaline Phosphatase 119 U/L (40-130) 06/28/23 11:34 Total Protein 6.8 g/dL (6.6-8.7) 06/28/23 11:34 Albumin 3.2 g/dL (3.5-5.2) L 06/28/23 11:34 Globulin 3.6 g/dL (1.3-4.6) 06/28/23 11:34 All radiology interpretation(s) finalized by discharge Discharge Plan Discharge Patient Disposition: Home Clinical Impression: Dislodged Borrero catheter Qualifiers: Encounter type: initial encounter Qualified Code(s): T83.021A - Displacement of indwelling urethral catheter, initial encounter Hematuria Qualifiers: Hematuria type: gross Qualified Code(s): R31.0 - Gross hematuria Condition: Stable Prescriptions: No Action nitroglycerin 0.4 mg tablet, sublingual 0.4 mg SUBLINGUAL Q5M PRN (Reason: chest pain) Qty: 30 4RF Rx Instructions: until response; do not exceed 3 doses per episode aspirin 81 mg Tablet,Delayed Release (Dr/Ec) 81 mg PO DAILY Qty: 30 0RF levofloxacin 500 mg tablet 500 mg PO Q24H 7 Days Qty: 7 0RF Rx Instructions: for 7 days (rx filled 06/24/23) furosemide 40 mg tablet 40 mg PO BID 30 Days Qty: 30 0RF tizanidine 4 mg capsule 2 mg PO QID PRN (Reason: Muscle Spasm) Qty: 10 0RF carvedilol 12.5 mg tablet 12.5 mg PO BID hydralazine 25 mg tablet 75 mg PO BID atorvastatin 40 mg tablet 40 mg PO QPM clopidogrel 75 mg tablet 75 mg PO QAM Qty: 90 0RF acetaminophen 325 mg Tablet 650 mg PO QID PRN (Reason: Pain) Discharge Orders: Discharge ED (Routine); Ordered 06/28/23 Ordered By: Abimael Tran Referrals: Esperanza Rea DO [Primary Care Provider] - 1 week Patient Instructions: Hematuria - Male Activity Restrictions/Additional Instructions: Your lab work in ER showed your kidneys are working good. Please drink more water as this will help you produce more urine. Your Borrero catheter was not replaced as your wishes. Please self cath as needed. Please follow-up with your family practitioner and/or urologist within the next 7 to 10 days for further evaluation and treatment as needed. If your bleeding increases or becomes uncontrollable please feel free to return to the ER. Coding Level of Care Code ED Drop Board Worker for Kathryn Olmstead
--- NOTE | 2023-06-28 11:22 | PC.PHAR ---
pts life partner verified pts medications-states the pts metoprolol succ er 25mg daily was dced ext shows last filled 06/11/23 30d/s states changed back to carvedilol 12.5mg bid ext shows last filled 06/03/23 30d/s-states the pt takes hydralazine 25mg tabs takes 75mg (3 tabs) po bid ext shows last filled 06/11/23 30d/s 75mg tid-states the pt is no longer taking kcl 20meq daily ext shows last filled 02/13/23 30d/s-
[2023-06-28 11:52] LABS: Basophils # 0.1 10^3/uL (0.0-0.1); Basophils % 1.1 %; Eosinophils # 0.8 10^3/uL (0.0-0.8); Eosinophils % 9.1 %; Hematocrit 37.7 % (37-53); Lymphocytes # 0.8 10^3/uL (0.8-4.8); Lymphocytes % 9.7 %; Mean Corpuscular Hemoglobin 26.6 pg (27-33); Mean Corpuscular Volume 88.7 fl (82-101); Mean Platelet Volume 10.1 fL (7.4-10.4); Monocytes # 0.6 10^3/uL (0.2-0.9); Monocytes % 6.7 %; Neutrophils # 6.18 10^3/uL (1.8-7.7); Neutrophils % 73.2 %; Nucleated Red Blood Cells % 0 %; Platelet Count 167 10^3/cmm (157-399); Red Blood Count 4.25 10^6/uL (3.85-5.65); Red Cell Distribution Width 16.7 % (12.1-15.1); White Blood Count 8.45 10^3/uL (3.29-11.43)
[2023-06-28 12:10] LABS: Alanine Aminotransferase 10 U/L (0-41); Albumin Level 3.2 g/dL (3.5-5.2); Alkaline Phosphatase 119 U/L (40-130); Anion Gap 12.4 (5-19); Aspartate Amino Transferase 10 U/L (0-40); Blood Urea Nitrogen 21 mg/dL (8-23); Calcium 8.1 mg/dL (8.5-10.5); Carbon Dioxide 29 mmol/L (22-29); Chloride 100 mmol/L (98-107); Creatinine Clr Calc Pharmacy 60.7499; Globulin 3.6 g/dL (1.3-4.6); Glomerular Filtration Rate 54.7 mL/min (90-130); Glucose 102 mg/dL (65-115); Osmolality Calculated 287 mOsm/kg (285-295); Potassium 4.4 mmol/L (3.5-5.1); Sodium 137 mmol/L (136-145); Total Bilirubin 0.4 mg/dL (0.15-1.2); Total Protein 6.8 g/dL (6.6-8.7)
[2023-06-28 13:16] VITALS: BP 165/105; PULSE 84; O2SAT 91
== END 2023-06-28 15:38 | disposition home or self-care (01) ==
PROVIDERS: Emergency Provider Emergency Medicine; PCP Family Medicine
DX: T83.021A Displacement of indwelling urethral catheter, initial encounter (principal); R31.0 Gross hematuria; Y73.8 Miscellaneous gastroenterology and urology devices associated with adverse incidents, not elsewhere classified; Z79.02 Long term (current) use of antithrombotics/antiplatelets; Z79.82 Long term (current) use of aspirin; F17.210 Nicotine dependence, cigarettes, uncomplicated; I25.5 Ischemic cardiomyopathy; I13.0 Hypertensive heart and chronic kidney disease with heart failure and stage 1 through stage 4 chronic kidney disease, or unspecified chronic kidney disease; N18.9 Chronic kidney disease, unspecified; I50.9 Heart failure, unspecified; G35 Multiple sclerosis; I25.10 Atherosclerotic heart disease of native coronary artery without angina pectoris; E78.5 Hyperlipidemia, unspecified; I25.2 Old myocardial infarction
CPT/HCPCS: 36415; 51798; 80053; 85025; 99283

== ENCOUNTER 2023-07-07 10:41 | Emergency (ER) | payer MEDICARE, MEDICAID, SELFPAY ==
[2023-07-07] VITALS (9 sets, daily range): BP systolic 144–202; BP diastolic 83–105; PULSE 55–71; RESP 18–20; TEMP 35.6; O2SAT 82–97
--- NOTE | 2023-07-07 11:11 | CT_ITS ---
WS: [id number] Examination: CT facial bones wo con* [id number] Reason for Exam: fall/trauma; R periorbital swelling/bruising Date: July 07, 2023 Comparison: None. DLP: 2872.[address] scans at [facility] use at least one of these dose optimization techniques: automated e xposure control; mA and/or kV adjustment per patient size (includes targeted exams where dose is matc hed to clinical indication); or iterative reconstruction. Findings: The maxillary spine is intact. I see no acute displaced nasal fractures. There is bowing of the bony nasal septum to the left. Bilateral uncomplicated middle turbinate erasto bullosa are noted. The zygomatic arches are intact. There is mild periorbital swelling I see no displaced orbital fracture. The maxilla appear intact The mandible is intact. There is extensive dental caries with several periapical root lucencies. Extensive carotid vascular calcification is noted. Impression: No displaced facial fractures are identified. Mild soft tissue swelling on the right is noted particularly in the periorbital region. There is extensive dental caries and periapical root abscesses.
--- NOTE | 2023-07-07 11:11 | XRR_ITS ---
PROCEDURE INFORMATION: Exam: XR Chest Exam date and time: 07/07/2023 11:17 AM Age: 68 years old Clinical indication: Other: AMS TECHNIQUE: Imaging protocol: Radiologic exam of the chest. Views: 1 view. COMPARISON: CR XR chest 1V portable [id number] 06/21/2023 11:24 AM FINDINGS: Lungs: No large focal consolidation. Pleural spaces: No large pleural effusion. No distinct pneumothorax. Heart/Mediastinum: Cardiomediastinal silhouette is midline and enlarged, stable. Vasculature: Mild calcific disease of the aorta. Bones/joints: No acute osseous findings. XR/XR chest 1V portable [id number] IMPRESSION: 1. Cardiomegaly, stable. 2. No large focal consolidation.
--- NOTE | 2023-07-07 11:12 | CT_ITS ---
WS: [id number] Examination: CT cervical spin wo con* [id number] Reason for Exam: fall/trauma Date: July 07, 2023 Comparison: April 27, 2022 DLP: 2872.[address] scans at [facility] use at least one of these dose optimization techniques: automated e xposure control; mA and/or kV adjustment per patient size (includes targeted exams where dose is matc hed to clinical indication); or iterative reconstruction. Findings: The bone density is diminished. No rom destruction is identified. Mild anterior C2 dens e rosion is noted. The images were obtained with the patient's head canted and rotated to the left.. The STACI is intact. The ring of C1 is intact. The spinolaminar line is intact. There is prevertebral thickening with potential edema suspected anterior to the upper C-spine. There is no anterior wedging or compression. There is unchanged subtle anterior offset at C3-C4 and l ess so at C4-C5. There is dominant disc space narrowing at C5-6 and C6-7 with endplate and uncinate o steophytes. There is fusion of the facets at C4-5. There is carotid vascular calcification and disease identified bilaterally. Impression: The patient's head is canted and rotated to the left. There is some rotation at C1 -C2 which may be p ositional. There is evidence of prevertebral thickening. If symptoms suggest further evaluation with MRI is recommended. I see no compression fracture. The STACI is intact. The spinolaminar line appears maintained There are mild degenerative changes present. I discussed these findings and recommendations with Dr. Levine in the emergency room at 12:44 p.m. Apr ak 2023.
--- NOTE | 2023-07-07 11:12 | CT_ITS ---
WS: [id number] Examination: CT head wo con* [id number] Reason for Exam: fall/trauma Date: July 07, 2023 Comparison: June 21, 2023 DLP: 2872.[address] scans at [facility] use at least one of these dose optimization techniques: automated e xposure control; mA and/or kV adjustment per patient size (includes targeted exams where dose is matc hed to clinical indication); or iterative reconstruction. Findings: There is evidence of mild scalp swelling over the lateral right frontal and periorbital region. There is no depressed skull fracture. There is mild ethmoid sinus disease. There is significant volume loss and atrophy for the patient's age. There is no midline shift or hydrocephalus Extensive ischemic microvascular changes are suspected There is no intracranial hemorrhage or hematoma. Impression: There is no intracranial hemorrhage or hematoma There is prominent volume loss and white matter change noted.
--- NOTE | 2023-07-07 11:15 | ED_ITS ---
Documented by User: [email or web address] Norris 07/07/23 12:41 HPI - General Adult 2 General: Chief complaint: Urogenital-Male Stated complaint: catheter came out Time Seen by Provider: 07/07/23 10:55 Source: EMS Mode of arrival: EMS Limitations: altered mental status History of Present Illness: Patient is a 68-year-old male with a very extensive past medical history here via EMS after he was found down in his living quarters. Patient upon arrival is altered and offers no history. He mumbles senselessly. He is tearing off his oxygen during my exam. Apparently he did tell RN that he fell today and struck his face on a pipe. EMS states that he lives with family and they have built some type of small living quarters for him in the garage. He apparently was found down by family trying to insert a catheter. Patient was seen here recently due to a dislodged Barros catheter. He reportedly self caths. He arrives to the ED today hypoxic requiring oxygen. Temp is 96.1. He is not wearing any clothes apart from underwear and socks. He is dirty and foul smelling. Again no history was able to be elicited from patient during my encounter. Looking at previous documentation most recently from mid last month patient was admitted for encephalopathy with a UTI and heart failure. He has a significant tunneling decubitus ulcer. He also had worsening ejection fraction-down to 20%. Onset (ago): hour(s) Treatments prior to arrival: none Review of Systems 2 General: Reports: ROS unobtainable due to medical condition and ROS unobtainable due to mental status PFS ED 2 PFSH: Medical History Osteomyelitis Decubitus ulcer of sacral region, unstageable Diastolic CHF Cellulitis Cardiomyopathy Falls frequently Periorbital edema of both eyes Skin ulcer Acute on chronic urinary retention Encephalopathy Lactic acidosis Hypothermia Tobacco dependency Multiple sclerosis Troponin level elevated Urinary retention Acute on chronic renal failure Chronic kidney disease Coronary artery disease Lacunar infarction Hyperlipidemia HTN (hypertension) Ischemic cardiomyopathy History of non-ST elevation myocardial infarction (NSTEMI) CHF (congestive heart failure) Surgical History Hx of colonoscopy with polypectomy History of esophagogastroduodenoscopy (EGD) Hx of heart artery stent stents x 2, 2018- unknown vessels Family History Sister Heart disease Hypertension Myocardial infarction Mother Cancer Daughter Myocardial infarction Social History Smoking and tobacco/nicotine status: current every day tobacco/nicotine user cigarettes Packs smoked per day: 0.5 [ Other cigarette details: Cutting down] Alcohol intake: never Substance/Drug Use: unknown Adopted: No Caregiver/support person: No Lives independently: No Marital status: Single Physical Exam 2 Const: EXAM LIMITATIONS: altered mental status GENERAL APPEARANCE: d isheveled and other (dirty, odorous ) HENMT: COMMON NORMALS: normocephalic, atraumatic and Normal external nose present HEAD & SCALP: normal to inspection, normocephalic and atraumatic F AIME & SINUS: other (R periorbital edema/ecchymosis; no ocular injury noted) N OSE: Normal external nose present TEETH & GINGIVA: Yes poor dentition Eye: PERIORBITAL: periorbital findings abnormal Chest: COMMONS NORMALS: normal inspection of the chest Resp: COMMON NORMALS: normal respiratory effort OTHER: on 2L of oxygen although he keeps removing it Cardio: COMMON NORMALS: regular rate and regular rhythm RATE: regular rate RHYTHM: regular rhythm Course 2 ED course: Care will transferred to Dr. Levine as he will require admission ES Vital Signs: Vital signs: Vital Signs Temperature 96.1 F L 07/07/23 10:50 Pulse Rate 71 07/07/23 12:30 Respiratory Rate 18 07/07/23 10:50 Blood Pressure 186/101 07/07/23 13:00 Pulse Oximetry 82 L 07/07/23 15:05 Oxygen Delivery Me thod Nasal Cannula 07/07/23 15:05 Oxygen Flow Rate 6 07/07/23 15:05 MDM - General Adult Medical Decision Making Please see Dr. Levine's note for further care and disposition. ES Lab Data 07/07/23 11:43 07/07/23 11:43 Radiology Impressions Chest X-Ray 07/07/23 11:11 IMPRESSION: 1. Cardiomegaly, stable. 2. No large focal consolidation. Laboratory Results WBC 10.78 10^3/uL (3.29-11.43) 07/07/23 11:43 RBC 4.29 10^6/uL (3.85-5.65) 07/07/23 11:43 Hgb 11.30 g/dL (11.27-16.99) 07/07/23 11:43 Hct 38.1 % (37-53) 07/07/23 11:43 MCV 88.8 fl (82-101) 07/07/23 11:43 MCH 26.3 pg (27-33) L 07/07/23 11:43 MCHC 29.7 g/dL (30-55) L 07/07/23 11:43 RDW 16.9 % (12.1-15.1) H 07/07/23 11:43 Plt Count 285 10^3/cmm (157-399) 07/07/23 11:43 MPV 10.4 fL (7.4-10.4) 07/07/23 11:43 Neut % (Auto) 74.5 % 07/07/23 11:43 Lymph % (Auto) 8.6 % 07/07/23 11:43 [place] % (Auto) 9.5 % 07/07/23 11:43 Eos % (Auto) 6.1 % 07/07/23 11:43 Baso % (Auto) 0.8 % 07/07/23 11:43 Neut # (Auto) 8.03 10^3/uL (1.8-7.7) H 07/07/23 11:43 Lymph # (Auto) 0.9 10^3/uL (0.8-4.8) 07/07/23 11:43 [place] # (Auto) 1.0 10^3/uL (0.2-0.9) H 07/07/23 11:43 Eos # (Auto) 0.7 10^3/uL (0.0-0.8) 07/07/23 11:43 Baso # (Auto) 0.1 10^3/uL (0.0-0.1) 07/07/23 11:43 Nucleated RBC % (auto) 0 % 07/07/23 11:43 Nucleated RBCs # 0.0 /100WBC 07/07/23 11:43 Specimen Type Arterial 07/07/23 11:18 Sample Site Radial, right 07/07/23 11:18 ABG pH 7.41 (7.35-7.45) 07/07/23 11:18 ABG pCO2 44.0 mmHg (35-45) 07/07/23 11:18 ABG pO2 69.9 mmHg (80.0-100.0) L 07/07/23 11:18 ABG HCO3 27.9 mmol/L (22-26) H 07/07/23 11:18 ABG Base Excess 2.9 mmol/L (-2.0-2.0) H 07/07/23 11:18 Adonis Test Pos 07/07/23 11:18 Hematocrit 34.4 % (42-52) L 07/07/23 11:18 O2 Delivery Device Nc 07/07/23 11:18 O2 Liters/Min 3.0 % 07/07/23 11:18 Steel Plate Printer ID Walci 07/07/23 11:18 Sodium 135 mmol/L (136-145) L 07/07/23 11:43 Potassium 4.8 mmol/L (3.5-5.1) 07/07/23 11:43 Chloride 98 mmol/L (98-107) 07/07/23 11:43 Carbon Dioxide 25 mmol/L (22-29) 07/07/23 11:43 Anion Gap 16.8 (5-19) 07/07/23 11:43 BUN 25 mg/dL (8-23) H 07/07/23 11:43 Creatinine 1.2 mg/dL (0.7-1.2) 07/07/23 11:43 GFR Calculation 60.0 mL/min (90-130) L 07/07/23 11:43 Glucose 110 mg/dL (65-115) 07/07/23 11:43 Calculated Osmolality 285 mOsm/kg (285-295) 07/07/23 11:43 Lactic Acid 1.7 mmol/L (0.5-2.2) 07/07/23 11:43 Calcium 8.9 mg/dL (8.5-10.5) 07/07/23 11:43 Magnesium 2.4 mg/dL (1.7-2.3) H 07/07/23 11:43 Total Bilirubin 0.5 mg/dL (0.15-1.2) 07/07/23 11:43 AST 12 U/L (0-40) 07/07/23 11:43 ALT 9 U/L (0-41) 07/07/23 11:43 Alkaline Phosphatase 152 U/L (40-130) H 07/07/23 11:43 Ammonia 46 umol/L (16-60) 07/07/23 11:43 Creatine Kinase 86 U/L (39-308) 07/07/23 11:43 Troponin T Baseline 83 ng/L (0-15) H 07/07/23 11:43 Total Protein 7.3 g/dL (6.6-8.7) 07/07/23 11:43 Albumin 3.6 g/dL (3.5-5.2) 07/07/23 11:43 Globulin 3.7 g/dL (1.3-4.6) 07/07/23 11:43 TSH 3.18 uIU/mL (0.27-4.20) 07/07/23 11:43 Urine Color Dark yellow (Yellow) 07/07/23 12:21 Urine Appearance Slightly cloudy (CLEAR) A 07/07/23 12:21 Urine pH 7 (5-7) 07/07/23 12:21 Ur Specific [place] 1.010 (1.005-1.030) 07/07/23 12:21 Urine Protein 2+ (Negative) H 07/07/23 12:21 Urine Glucose (UA) Norm (Normal) 07/07/23 12:21 Urine Ketones Negative (Negative) 07/07/23 12:21 Urine Blood 3+ (Negative) H 07/07/23 12:21 Urine Nitrate Positive (Negative) H 07/07/23 12:21 Urine Bilirubin Neg (Negative) 07/07/23 12:21 Urine Urobilinogen Norm mg/dL (Negative) 07/07/23 12:21 Ur Leukocyte Esterase 2+ (Negative) H 07/07/23 12:21 Urine RBC 0-4 /hpf (0-2) H 07/07/23 12:21 Urine WBC 55-80 /hpf (0-5) H 07/07/23 12:21 Ur Squamous Epith Cells 0-4 /hpf (0-5) H 07/07/23 12:21 Amorphous Sediment Not Reportable 07/07/23 12:21 Urine Bacteria 3+ /hpf (NONE) H 07/07/23 12:21 All radiology interpretation(s) finalized by discharge Discharge Plan Discharge Patient Disposition: Xfer Short-Term Hosp Clinical Impression: UTI (urinary tract infection), Altered mental status, Fall Condition: Stable Prescriptions: No Action nitroglycerin 0.4 mg tablet, sublingual 0.4 mg SUBLINGUAL Q5M PRN (Reason: chest pain) Qty: 30 4RF Rx Instructions: until response; do not exceed 3 doses per episode aspirin 81 mg Tablet,Delayed Release (Dr/Ec) 81 mg PO DAILY Qty: 30 0RF carvedilol 12.5 mg tablet 6.25 mg PO BID hydralazine 25 mg tablet 25 mg PO BID tizanidine 4 mg tablet 2 mg PO QID PRN (Reason: Muscle Spasm) furosemide 40 mg tablet 40 mg PO DAILY PRN (Reason: Edema) atorvastatin 40 mg tablet 40 mg PO QPM clopidogrel 75 mg tablet 75 mg PO QAM Qty: 90 0RF acetaminophen 325 mg Tablet 650 mg PO QID PRN (Reason: Pain) Referrals: Raymon Min FNP [Primary Care Provider] - Coding Level of Care Code ED Railroad Accountant for Chg Fwd Documented by User: Anju Levine MD 07/07/23 15:14 HPI - General Adult 2 General: Chief complaint: Urogenital-Male Stated complaint: catheter came out Time Seen by Provider: 07/07/23 10:55 PFS ED 2 PFSH: Medical History Osteomyelitis Decubitus ulcer of sacral region, unstageable Diastolic CHF Cellulitis Cardiomyopathy Falls frequently Periorbital edema of both eyes Skin ulcer Acute on chronic urinary retention Encephalopathy Lactic acidosis Hypothermia Tobacco dependency Multiple sclerosis Troponin level elevated Urinary retention Acute on chronic renal failure Chronic kidney disease Coronary artery disease Lacunar infarction Hyperlipidemia HTN (hypertension) Ischemic cardiomyopathy History of non-ST elevation myocardial infarction (NSTEMI) CHF (congestive heart failure) Surgical History Hx of colonoscopy with polypectomy History of esophagogastroduodenoscopy (EGD) Hx of heart artery stent stents x 2017- unknown vessels Family History Sister Heart disease Hypertension Myocardial infarction Mother Cancer Daughter Myocardial infarction Social History Smoking and tobacco/nicotine status: current every day tobacco/nicotine user cigarettes Packs smoked per day: 0.5 [ Other cigarette details: Cutting down] Alcohol intake: never Substance/Drug Use: unknown Adopted: No Caregiver/support person: No Lives independently: No Marital status: Single Course 2 Vital Signs: Vital signs: Vital Signs Temperature 96.1 F L 07/07/23 10:50 Pulse Rate 71 07/07/23 12:30 Respiratory Rate 18 07/07/23 10:50 Blood Pressure 186/101 07/07/23 13:00 Pulse Oximetry 82 L 07/07/23 15:05 Oxygen Delivery Me thod Nasal Cannula 07/07/23 15:05 Oxygen Flow Rate 6 07/07/23 15:05 MDM - General Adult Medical Decision Making Please see Dr. Levine's note for further care and disposition. ES Patient presents with altered male status along with a fall out of his bed he does have a UTI patient is continue to be altered here. CT scan here showed concerns for possible ligamentous injury with rotation of C1 and C2 was not able to perform an MRI here I did speak to [facility] will transfer ER to ER for trauma and MRI capabilities. Lab Data I reviewed the patient's lab results. 07/07/23 11:43 07/07/23 11:43 Radiology Impressions Chest X-Ray 07/07/23 11:11 IMPRESSION: 1. Cardiomegaly, stable. 2. No large focal consolidation. Laboratory Results WBC 10.78 10^3/uL (3.29-11.43) 07/07/23 11:43 RBC 4.29 10^6/uL (3.85-5.65) 07/07/23 11:43 Hgb 11.30 g/dL (11.27-16.99) 07/07/23 11:43 Hct 38.1 % (37-53) 07/07/23 11:43 MCV 88.8 fl (82-101) 07/07/23 11:43 MCH 26.3 pg (27-33) L 07/07/23 11:43 MCHC 29.7 g/dL (30-55) L 07/07/23 11:43 RDW 16.9 % (12.1-15.1) H 07/07/23 11:43 Plt Count 285 10^3/cmm (157-399) 07/07/23 11:43 MPV 10.4 fL (7.4-10.4) 07/07/23 11:43 Neut % (Auto) 74.5 % 07/07/23 11:43 Lymph % (Auto) 8.6 % 07/07/23 11:43 [place] % (Auto) 9.5 % 07/07/23 11:43 Eos % (Auto) 6.1 % 07/07/23 11:43 Baso % (Auto) 0.8 % 07/07/23 11:43 Neut # (Auto) 8.03 10^3/uL (1.8-7.7) H 07/07/23 11:43 Lymph # (Auto) 0.9 10^3/uL (0.8-4.8) 07/07/23 11:43 [place] # (Auto) 1.0 10^3/uL (0.2-0.9) H 07/07/23 11:43 Eos # (Auto) 0.7 10^3/uL (0.0-0.8) 07/07/23 11:43 Baso # (Auto) 0.1 10^3/uL (0.0-0.1) 07/07/23 11:43 Nucleated RBC % (auto) 0 % 07/07/23 11:43 Nucleated RBCs # 0.0 /100WBC 07/07/23 11:43 Specimen Type Arterial 07/07/23 11:18 Sample Site Radial, right 07/07/23 11:18 ABG pH 7.41 (7.35-7.45) 07/07/23 11:18 ABG pCO2 44.0 mmHg (35-45) 07/07/23 11:18 ABG pO2 69.9 mmHg (80.0-100.0) L 07/07/23 11:18 ABG HCO3 27.9 mmol/L (22-26) H 07/07/23 11:18 ABG Base Excess 2.9 mmol/L (-2.0-2.0) H 07/07/23 11:18 Adonis Test Pos 07/07/23 11:18 Hematocrit 34.4 % (42-52) L 07/07/23 11:18 O2 Delivery Device Nc 07/07/23 11:18 O2 Liters/Min 3.0 % 07/07/23 11:18 Steel Plate Printer ID Walci 07/07/23 11:18 Sodium 135 mmol/L (136-145) L 07/07/23 11:43 Potassium 4.8 mmol/L (3.5-5.1) 07/07/23 11:43 Chloride 98 mmol/L (98-107) 07/07/23 11:43 Carbon Dioxide 25 mmol/L (22-29) 07/07/23 11:43 Anion Gap 16.8 (5-19) 07/07/23 11:43 BUN 25 mg/dL (8-23) H 07/07/23 11:43 Creatinine 1.2 mg/dL (0.7-1.2) 07/07/23 11:43 GFR Calculation 60.0 mL/min (90-130) L 07/07/23 11:43 Glucose 110 mg/dL (65-115) 07/07/23 11:43 Calculated Osmolality 285 mOsm/kg (285-295) 07/07/23 11:43 Lactic Acid 1.7 mmol/L (0.5-2.2) 07/07/23 11:43 Calcium 8.9 mg/dL (8.5-10.5) 07/07/23 11:43 Magnesium 2.4 mg/dL (1.7-2.3) H 07/07/23 11:43 Total Bilirubin 0.5 mg/dL (0.15-1.2) 07/07/23 11:43 AST 12 U/L (0-40) 07/07/23 11:43 ALT 9 U/L (0-41) 07/07/23 11:43 Alkaline Phosphatase 152 U/L (40-130) H 07/07/23 11:43 Ammonia 46 umol/L (16-60) 07/07/23 11:43 Creatine Kinase 86 U/L (39-308) 07/07/23 11:43 Troponin T Baseline 83 ng/L (0-15) H 07/07/23 11:43 Total Protein 7.3 g/dL (6.6-8.7) 07/07/23 11:43 Albumin 3.6 g/dL (3.5-5.2) 07/07/23 11:43 Globulin 3.7 g/dL (1.3-4.6) 07/07/23 11:43 TSH 3.18 uIU/mL (0.27-4.20) 07/07/23 11:43 Urine Color Dark yellow (Yellow) 07/07/23 12:21 Urine Appearance Slightly cloudy (CLEAR) A 07/07/23 12:21 Urine pH 7 (5-7) 07/07/23 12:21 Ur Specific [place] 1.010 (1.005-1.030) 07/07/23 12:21 Urine Protein 2+ (Negative) H 07/07/23 12:21 Urine Glucose (UA) Norm (Normal) 07/07/23 12:21 Urine Ketones Negative (Negative) 07/07/23 12:21 Urine Blood 3+ (Negative) H 07/07/23 12:21 Urine Nitrate Positive (Negative) H 07/07/23 12:21 Urine Bilirubin Neg (Negative) 07/07/23 12:21 Urine Urobilinogen Norm mg/dL (Negative) 07/07/23 12:21 Ur Leukocyte Esterase 2+ (Negative) H 07/07/23 12:21 Urine RBC 0-4 /hpf (0-2) H 07/07/23 12:21 Urine WBC 55-80 /hpf (0-5) H 07/07/23 12:21 Ur Squamous Epith Cells 0-4 /hpf (0-5) H 07/07/23 12:21 Amorphous Sediment Not Reportable 07/07/23 12:21 Urine Bacteria 3+ /hpf (NONE) H 07/07/23 12:21 Discharge Plan Discharge Patient Disposition: Xfer Short-Term Hosp Clinical Impression: UTI (urinary tract infection), Altered mental status, Fall Condition: Stable Prescriptions: No Action nitroglycerin 0.4 mg tablet, sublingual 0.4 mg SUBLINGUAL Q5M PRN (Reason: chest pain) Qty: 30 4RF Rx Instructions: until response; do not exceed 3 doses per episode aspirin 81 mg Tablet,Delayed Release (Dr/Ec) 81 mg PO DAILY Qty: 30 0RF carvedilol 12.5 mg tablet 6.25 mg PO BID hydralazine 25 mg tablet 25 mg PO BID tizanidine 4 mg tablet 2 mg PO QID PRN (Reason: Muscle Spasm) furosemide 40 mg tablet 40 mg PO DAILY PRN (Reason: Edema) atorvastatin 40 mg tablet 40 mg PO QPM clopidogrel 75 mg tablet 75 mg PO QAM Qty: 90 0RF acetaminophen 325 mg Tablet 650 mg PO QID PRN (Reason: Pain) Referrals: Raymon Min FNP [Primary Care Provider] - Coding Level of Care Code ED Railroad Accountant for Kathryn Olmstead
[2023-07-07 11:30] LABS: ABG PH Result 7.41 (7.35-7.45); Arterial Blood Gas Hematocrit 34.4 % (42-52); Base Excess ABG 2.9 mmol/L (-2.0-2.0); Blood Gas Allen Test Pos; Blood Gas Operator Identificat WALCI; Blood Gas Sample Site Radial, right; Blood Gas Sample Type Arterial; HCO3 ABG 27.9 mmol/L (22-26); Oxygen Device NC; PO2 ABG 69.9 mmHg (80.0-100.0)
--- NOTE | 2023-07-07 11:33 | ECG_ITS ---
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 Measurements Intervals [place] Rate: 48 P: 69 NV: 271 QRS: 102 QRSD: 186 T: -60 QT: 487 QTc: 437 Interpretive Statements SINUS BRADYCARDIA WITH FIRST DEGREE AV BLOCK RIGHT AXIS DEVIATION [QRS AXIS > 100] RIGHT BUNDLE BRANCH BLOCK [120+ ms QRS DURATION, UPRIGHT V1, 40+ ms S IN I/aVL/V4/V5/V6] MODERATE T-WAVE ABNORMALITY, CONSIDER LATERAL ISCHEMIA [-0.1+ mV T-WAVE IN I/aVL/V5/V6] MODERATE T-WAVE ABNORMALITY, CONSIDER INFERIOR ISCHEMIA [-0.1+ mV T-WAVE IN II/aVF] Compared to ECG 06/21/2023 20:24:09 Right-axis deviation now present.Sinus rhythm no longer present T-wave abnormality still present.Possible ischemia still present Electronically Signed On 07-07-2023 16:28:28 CDT by Debora Sevilla M.D. [id number] f
[2023-07-07 11:53] LABS: Basophils # 0.1 10^3/uL (0.0-0.1); Basophils % 0.8 %; Eosinophils # 0.7 10^3/uL (0.0-0.8); Eosinophils % 6.1 %; Hematocrit 38.1 % (37-53); Lymphocytes # 0.9 10^3/uL (0.8-4.8); Lymphocytes % 8.6 %; Mean Corpuscular HGB Conc 29.7 g/dL (30-55); Mean Corpuscular Hemoglobin 26.3 pg (27-33); Mean Corpuscular Volume 88.8 fl (82-101); Mean Platelet Volume 10.4 fL (7.4-10.4); Monocytes % 9.5 %; Neutrophils # 8.03 10^3/uL (1.8-7.7); Neutrophils % 74.5 %; Nucleated Red Blood Cells % 0 %; Platelet Count 285 10^3/cmm (157-399); Red Blood Count 4.29 10^6/uL (3.85-5.65); Red Cell Distribution Width 16.9 % (12.1-15.1); White Blood Count 10.78 10^3/uL (3.29-11.43)
--- NOTE | 2023-07-07 12:01 | PC.PHAR ---
pts dominick [phone] states the pt takes carvedilol 6.25mg bid ext shows filled for 12.5mg bid-lasix 40mg daily prn ext shows last filled 06/11/23 5d/s 40mg bid-hydralazine 25mg bid ext shows filled 75mg tid-pts states the pt metoprolol succ er 25mg daily was dced-pts states pt finished levaquin 500mg daily for 7 days filled 06/24/23 was finished ~07/01/23-notes are made in the pharmacy comments
[2023-07-07 12:16] LABS: Ammonia 46 umol/L (16-60)
[2023-07-07 12:19] LABS: Lactic Sepsis W/Reflex 1.7 mmol/L (0.5-2.2); Troponin(5th) Baseline 83 ng/L (0-15)
[2023-07-07 12:24] LABS: Alanine Aminotransferase 9 U/L (0-41); Albumin Level 3.6 g/dL (3.5-5.2); Alkaline Phosphatase 152 U/L (40-130); Blood Urea Nitrogen 25 mg/dL (8-23); Calcium 8.9 mg/dL (8.5-10.5); Carbon Dioxide 25 mmol/L (22-29); Chloride 98 mmol/L (98-107); Creatine Phosphokinase 86 U/L (39-308); Creatinine Clr Calc Pharmacy 80.7224; Globulin 3.7 g/dL (1.3-4.6); Glucose 110 mg/dL (65-115); Magnesium 2.4 mg/dL (1.7-2.3); Osmolality Calculated 285 mOsm/kg (285-295); Sodium 135 mmol/L (136-145); Thyroid Stimulating Hormone 3.18 uIU/mL (0.27-4.20); Total Bilirubin 0.5 mg/dL (0.15-1.2); Total Protein 7.3 g/dL (6.6-8.7)
[2023-07-07 12:28] LABS: Anion Gap 16.8 (5-19); Aspartate Amino Transferase 12 U/L (0-40); Potassium 4.8 mmol/L (3.5-5.1)
[2023-07-07] MEDS: sodium chloride 0.9% 1,000 ML 999 ML IV (12:39)
[2023-07-07 13:03] LABS: Urine Appearance Slightly Cloudy (CLEAR); Urine Color Dark Yellow (Yellow)
[2023-07-07 13:04] LABS: Add Urine Microscopic? YES; Bilirubin Urine Neg (Negative); Blood Urine 3+ (Negative); Glucose Urine UA Norm (Normal); Ketones Urine Negative (Negative); Leukocyte Esterase Urine 2+ (Negative); Nitrate Urine Positive (Negative); Protein Urine 2+ (Negative); RBC Urine 0-4 /hpf (0-2); Urobilinogen Urine Norm (Negative); WBC Urine 55-80 /hpf (0-5); pH Urine 7 (5-7)
[2023-07-07 13:05] LABS: Add Urine Culture? Yes; Bacteria Urine 3+ /hpf; Squamous Epithelial Cell Urine 0-4 /hpf (0-5)
--- NOTE | 2023-07-07 13:06 | CT_ITS ---
WS: [id number] Examination: CT kidney stone [id number] Reason for Exam: fever Date: July 07, 2023 Comparison: June 21, 2023 DLP: 1132.[address] scans at [facility] use at least one of these dose optimization techniques: automated e xposure control; mA and/or kV adjustment per patient size (includes targeted exams where dose is matc hed to clinical indication); or iterative reconstruction. Findings: The heart is markedly enlarged. There is basilar atelectasis and peribronchial thickening. The liver is prominent in size. The gallbladder is present. The gallbladder detail is poor. Gallbladd er wall thickening cannot be excluded. There is fluid around the liver. The spleen is unremarkable The adrenal glands are mildly prominent particularly the left. This is stable from the previous study measuring 3 x 2 cm. The kidneys are normal in size and symmetric. There is no nephrolithiasis or hydronephrosis. The aorta is extensively calcified as are the abdominal vessels. There is no aneurysm of the aorta. The pancreas is grossly unremarkable No bowel obstruction is suspected. There is free fluid in the pelvis. I see no free air. There is arthur ma and anasarca suspected. The appendix is unremarkable. The urinary bladder is decompressed around a Barros catheter it appears abnormally thick walled. There is suspected stranding along the margin of the bladder. No dominant L4-5 degenerative changes. Impression: There is marked cardiomegaly. There is ascites with fluid in the abdomen/pelvis. Anasarca is suspected. There is no hydronephrosis. There is significantly thickened urinary bladder which is decompressed. There is no small bowel obstruction. There is no free air.
--- NOTE | 2023-07-07 13:12 | ECG_ITS ---
[facility] Test Date: 2023-07-07 Pat Name: Armando Coleman Department: Room: Gender: Male Director Writing: : 1955 Requested By: Mari Li Order Number: [id number] Johanny MD: Debora Sevilla M.D. Measurements Intervals [place] Rate: 71 P: 78 [place]: 231 QRS: 104 QRSD: 197 T: -52 QT: 486 QTc: 531 Interpretive Statements SINUS RHYTHM WITH FIRST DEGREE AV BLOCK RIGHT AXIS DEVIATION [QRS AXIS > 100] RIGHT BUNDLE BRANCH BLOCK [120+ ms QRS DURATION, UPRIGHT V1, 40+ ms S IN I/aVL/V4/V5/V6] MODERATE T-WAVE ABNORMALITY, CONSIDER LATERAL ISCHEMIA [-0.1+ mV T-WAVE IN I/aVL/V5/V6] MODERATE T-WAVE ABNORMALITY, CONSIDER INFERIOR ISCHEMIA [-0.1+ mV T-WAVE IN II/aVF] Compared to ECG 07/07/2023 11:33:38 Sinus bradycardia no longer present T-wave abnormality still present Possible ischemia still present Electronically Signed On 07-07-2023 16:36:02 CDT by Debora Sevilla M.D. [id number]
[2023-07-07] MEDS: cefTRIAXone 1,000 MG in sodium chloride 0.9% (plus) 50 ML 100 MG IV (13:14)
--- NOTE | 2023-07-07 13:32 | PC.NURSE ---
attempted to place c-collar. regular c-collars that we have in department too short for this patient. erp notified
[2023-07-07] MEDS: LORazepam 2 mg/mL INJ 10 mL MDV 1 MG IVP (14:11)
[2023-07-07] MEDS: LORazepam 2 mg/mL INJ 10 mL MDV IVP (14:30)
--- NOTE | 2023-07-07 14:44 | PC.NURSE ---
pt in MRI
[2023-07-07 16:00] LABS: Troponin 5 2HR 84.61 ng/L (0-15); Troponin 5 2HR Delta 1.61 ABS# (0-10)
[2023-07-07] MEDS: hyDRALAzine 20 mg/mL INJ 1 mL 10 MG IVP (16:04)
== END 2023-07-07 16:42 | disposition home or self-care (01) ==
PROVIDERS: Physician Assistant; Emergency Provider Emergency Medicine; PCP Nurse Practitioner Family
DX: N39.0 Urinary tract infection, site not specified (principal); R41.82 Altered mental status, unspecified; Z79.02 Long term (current) use of antithrombotics/antiplatelets; Z79.82 Long term (current) use of aspirin; G35 Multiple sclerosis; I13.0 Hypertensive heart and chronic kidney disease with heart failure and stage 1 through stage 4 chronic kidney disease, or unspecified chronic kidney disease; N18.9 Chronic kidney disease, unspecified; I50.9 Heart failure, unspecified; I25.5 Ischemic cardiomyopathy; I25.10 Atherosclerotic heart disease of native coronary artery without angina pectoris; E78.5 Hyperlipidemia, unspecified; I25.2 Old myocardial infarction
CPT/HCPCS: 36415; 36600; 70450; 70486; 71045; 72125; 74176; 80053; 81001; 82140; 82550; 82803; 83605; 83735; 84443; 84484; 85025; 87040; 87077; 87086; 87186; 93005; 96361; 96365; 96375; 97760; 99285; J0360; J0696; J2060; J7030; L0172

== ENCOUNTER 2023-08-01 18:31 | Emergency (ER) | payer MEDICARE, MEDICAID, SELFPAY ==
[2023-08-01 18:35] VITALS: BP 180/113; PULSE 96; RESP 20; TEMP 36.7; O2SAT 90; BMI 28.7
[2023-08-01 18:38] VITALS: BP 180/113; PULSE 95; RESP 20; O2SAT 91
--- NOTE | 2023-08-01 19:02 | W.ED.MALEGU ---
HPI - Male Genitourinary General: Chief complaint: Urogenital-Male Stated complaint: liu clogged Time Seen by Provider: 08/01/23 18:33 History of Present Illness: 68-year-old male presents emerged part and stating that he has chronic indwelling Liu catheter is clogged. He states it has been clogged several times. He states he is currently having significant lower abdominal discomfort and pain that he describes as a pressure that is 9 out of 10. He denies fevers chills or night sweats. He states he last had his catheter replaced approximately 1 month ago. Review of Systems General: Reports: 10 or more systems reviewed and unremarkable except in HPI and below GI: Reports: abdominal pain : Reports: other (Liu catheter clogged) [facility] PFSH: Medical History Osteomyelitis Decubitus ulcer of sacral region, unstageable Diastolic CHF Cellulitis Cardiomyopathy Falls frequently Periorbital edema of both eyes Skin ulcer Acute on chronic urinary retention Encephalopathy Lactic acidosis Hypothermia Tobacco dependency Multiple sclerosis Troponin level elevated Urinary retention Acute on chronic renal failure Chronic kidney disease Coronary artery disease Lacunar infarction Hyperlipidemia HTN (hypertension) Ischemic cardiomyopathy History of non-ST elevation myocardial infarction (NSTEMI) CHF (congestive heart failure) Surgical History Hx of colonoscopy with polypectomy History of esophagogastroduodenoscopy (EGD) Hx of heart artery stent stents x 2017- unknown vessels Family History Sister Heart disease Hypertension Myocardial infarction Mother Cancer Daughter Myocardial infarction Social History Smoking and tobacco/nicotine status: current every day tobacco/nicotine user cigarettes Packs smoked per day: 0.5 [ Other cigarette details: Cutting down] Alcohol intake: never Substance/Drug Use: unknown Adopted: No Caregiver/support person: No Lives independently: No Marital status: Single Physical Exam Narrative: EXAM NARRATIVE: General: Alert, no acute distress. Skin: Warm, dry, Intact. Head: Normocephalic, atraumatic. Neck: Supple, trachea midline. Eye: Extraocular movements are intact. PERRLA Ears, nose, mouth and throat: mucosa moist. Cardiovascular: Regular, Normal peripheral perfusion. Respiratory: Lungs are clear to auscultation, respirations are non-labored, breath sounds are equal, Symmetrical chest wall expansion. Gastrointestinal: Soft, Nontender, Non distended, Normal bowel sounds. Musculoskeletal: Normal ROM, no deformity. Neurological: Alert and oriented, No focal neurological deficit observed. Psychiatric: Cooperative, appropriate mood & affect. Genitourinary: Chronic indwelling Liu catheter in place unable to be flushed appears to be clogged we will replace. Course Vital Signs: Vital signs: Vital Signs Temperature 98.1 F 08/01/23 18:35 Pulse Rate 95 08/01/23 18:38 Respiratory Rate 20 H 08/01/23 18:38 Blood Pressure 180/113 08/01/23 18:38 Pulse Oximetry 91 08/01/23 18:38 Oxygen Delivery Me thod Room Air 08/01/23 18:38 MDM - Male Medical Decision Making Physical exam completed and documented, attempted Liu catheter irrigation unsuccessful we have replaced the Liu catheter and the patient has had significant urinary output. Will discharge home and recommend follow-up with his PCP and urologist as needed. Medical Records I reviewed the patient's medical records. No radiology studies performed this visit Discharge Plan Discharge Patient Disposition: Home Clinical Impression: Obstructed Liu catheter Qualifiers: Encounter type: initial encounter Qualified Code(s): T83.091A - Other mechanical complication of indwelling urethral catheter, initial encounter Condition: Stable Prescriptions: No Action nitroglycerin 0.4 mg tablet, sublingual 0.4 mg SUBLINGUAL Q5M PRN (Reason: chest pain) Qty: 30 4RF Rx Instructions: until response; do not exceed 3 doses per episode aspirin 81 mg Tablet,Delayed Release (Dr/Ec) 81 mg PO DAILY Qty: 30 0RF carvedilol 12.5 mg tablet 6.25 mg PO BID hydralazine 25 mg tablet 25 mg PO BID tizanidine 4 mg tablet 2 mg PO QID PRN (Reason: Muscle Spasm) furosemide 40 mg tablet 40 mg PO DAILY PRN (Reason: Edema) atorvastatin 40 mg tablet 40 mg PO QPM clopidogrel 75 mg tablet 75 mg PO QAM Qty: 90 0RF acetaminophen 325 mg Tablet 650 mg PO QID PRN (Reason: Pain) Discharge Orders: Discharge ED (Routine); Ordered 08/01/23 Ordered By: Iglesia Chappell Referrals: Raymon Min FNP [Primary Care Provider] - Discharge Diet: Usual diet Discharge Activity: Resume usual activity Patient Instructions: Opioid Safety, Pain Management Activity Restrictions/Additional Instructions: Activity Restrictions/Additional Instructions: Thank you for choosing [facility] for your healthcare needs today. Please realize that you were seen in the Emergency Department and that we are providing you with an emergency medical screening exam and this may not be a complete and all inclusive of all the testing and or medical work-up that you may need to determine your ailment or severity of your illness. It is very important that you follow-up as instructed with your Primary care provider or Specialist for additional evaluation and to discuss your medical treatment plan. Coding Level of Care Code ED Tamping Machine Operator Road Forms for Kathryn Olmstead
[2023-08-01 22:46] VITALS: BP 180/113; PULSE 95; RESP 20; TEMP 36.7; O2SAT 91
== END 2023-08-01 22:50 | disposition home or self-care (01) ==
PROVIDERS: Emergency Provider Internal Medicine; PCP Nurse Practitioner Family
DX: T83.091A Other mechanical complication of indwelling urethral catheter, initial encounter (principal); Y73.1 Therapeutic (nonsurgical) and rehabilitative gastroenterology and urology devices associated with adverse incidents; Z79.82 Long term (current) use of aspirin; Z79.02 Long term (current) use of antithrombotics/antiplatelets; F17.210 Nicotine dependence, cigarettes, uncomplicated; I13.0 Hypertensive heart and chronic kidney disease with heart failure and stage 1 through stage 4 chronic kidney disease, or unspecified chronic kidney disease; I43 Cardiomyopathy in diseases classified elsewhere; N18.9 Chronic kidney disease, unspecified; I50.9 Heart failure, unspecified; G35 Multiple sclerosis; I25.10 Atherosclerotic heart disease of native coronary artery without angina pectoris; E78.5 Hyperlipidemia, unspecified; I25.2 Old myocardial infarction
CPT/HCPCS: 51702; 99283

== ENCOUNTER 2023-08-06 00:05 | Emergency (ER) | payer MEDICARE, MEDICAID, SELFPAY ==
[2023-08-06 00:08] VITALS: BP 181/127; RESP 14; TEMP 36.8; BMI 28.7
--- NOTE | 2023-08-06 00:15 | W.ED.GENADLT ---
HPI - General Adult General: Chief complaint: Urogenital-Male Stated complaint: blocked catheter Time Seen by Provider: 08/06/23 00:08 Source: patient and EMS Mode of arrival: EMS Limitations: no limitations History of Present Illness: 68-year-old male states he had a Barros catheter placed a week ago he states that he believes it is obstructed he has not had any urine output out of it he is having some bladder pain as well he rates a 6 out of 10 has no other complaints at this time PFS ED PFSH: Medical History Osteomyelitis Decubitus ulcer of sacral region, unstageable Diastolic CHF Cellulitis Cardiomyopathy Falls frequently Periorbital edema of both eyes Skin ulcer Acute on chronic urinary retention Encephalopathy Lactic acidosis Hypothermia Tobacco dependency Multiple sclerosis Troponin level elevated Urinary retention Acute on chronic renal failure Chronic kidney disease Coronary artery disease Lacunar infarction Hyperlipidemia HTN (hypertension) Ischemic cardiomyopathy History of non-ST elevation myocardial infarction (NSTEMI) CHF (congestive heart failure) Surgical History Hx of colonoscopy with polypectomy History of esophagogastroduodenoscopy (EGD) Hx of heart artery stent stents x 2017- unknown vessels Family History Sister Heart disease Hypertension Myocardial infarction Mother Cancer Daughter Myocardial infarction Social History Smoking and tobacco/nicotine status: current every day tobacco/nicotine user cigarettes Packs smoked per day: 0.5 [ Other cigarette details: Cutting down] Alcohol intake: never Substance/Drug Use: unknown Adopted: No Caregiver/support person: No Lives independently: No Marital status: Single Course Vital Signs: Vital signs: Vital Signs Temperature 98.2 F 08/06/23 00:08 Pulse Rate 84 08/06/23 00:46 Respiratory Rate 18 08/06/23 00:46 Blood Pressure 192/123 08/06/23 00:46 Pulse Oximetry 93 08/06/23 00:46 Oxygen Delivery Me thod Room Air 08/06/23 00:46 MDM - General Adult Medical Decision Making Patient presents here with obstructed Barros catheter did flush it he had a large amount of urine out he feels much improved stable for discharge follow-up with urology return if worsening. Medical Records I reviewed the patient's medical records. No radiology studies performed this visit Discharge Plan Discharge Patient Disposition: Home Clinical Impression: Obstructed Barros catheter Qualifiers: Encounter type: initial encounter Qualified Code(s): T83.091A - Other mechanical complication of indwelling urethral catheter, initial encounter Condition: Stable Prescriptions: New Bactrim DS 800-160 mg tablet 1 tab PO BID 10 Days Qty: 20 0RF No Action nitroglycerin 0.4 mg tablet, sublingual 0.4 mg SUBLINGUAL Q5M PRN (Reason: chest pain) Qty: 30 4RF Rx Instructions: until response; do not exceed 3 doses per episode aspirin 81 mg Tablet,Delayed Release (Dr/Ec) 81 mg PO DAILY Qty: 30 0RF carvedilol 12.5 mg tablet 6.25 mg PO BID hydralazine 25 mg tablet 25 mg PO BID tizanidine 4 mg tablet 2 mg PO QID PRN (Reason: Muscle Spasm) furosemide 40 mg tablet 40 mg PO DAILY PRN (Reason: Edema) atorvastatin 40 mg tablet 40 mg PO QPM clopidogrel 75 mg tablet 75 mg PO QAM Qty: 90 0RF acetaminophen 325 mg Tablet 650 mg PO QID PRN (Reason: Pain) Discharge Orders: Discharge ED (Routine); Ordered 08/06/23 Ordered By: Anju Levine Referrals: Raymon Min FNP [Primary Care Provider] - Discharge Diet: Advance as tolerated Discharge Activity: Resume usual activity Patient Instructions: Barros Catheter Placement and Care (ED) Coding Level of Care Code ED Tracer Bullet Charging Machine Operator for Kathryn Olmstead
[2023-08-06 00:16] VITALS: BP 192/123; PULSE 91; RESP 20; O2SAT 95
[2023-08-06 00:46] VITALS: BP 192/123; PULSE 84; RESP 18; O2SAT 93
[2023-08-06 01:46] VITALS: BP 173/107
[2023-08-06 04:16] VITALS: BP 158/113
[2023-08-06 06:00] VITALS: PULSE 84; O2SAT 92
== END 2023-08-06 09:26 | disposition home or self-care (01) ==
PROVIDERS: Emergency Provider Emergency Medicine; PCP Nurse Practitioner Family
DX: T83.091A Other mechanical complication of indwelling urethral catheter, initial encounter (principal); Z79.02 Long term (current) use of antithrombotics/antiplatelets; Z79.82 Long term (current) use of aspirin; F17.210 Nicotine dependence, cigarettes, uncomplicated; I25.5 Ischemic cardiomyopathy; I13.0 Hypertensive heart and chronic kidney disease with heart failure and stage 1 through stage 4 chronic kidney disease, or unspecified chronic kidney disease; N18.9 Chronic kidney disease, unspecified; I50.9 Heart failure, unspecified; G35 Multiple sclerosis; I25.10 Atherosclerotic heart disease of native coronary artery without angina pectoris; E78.5 Hyperlipidemia, unspecified; I25.2 Old myocardial infarction; Y73.1 Therapeutic (nonsurgical) and rehabilitative gastroenterology and urology devices associated with adverse incidents
CPT/HCPCS: 99282

== ENCOUNTER 2023-08-14 16:29 | Emergency (ER) | payer MEDICARE, MEDICAID, SELFPAY ==
[2023-08-14 16:33] VITALS: BP 162/124; PULSE 83; RESP 18; TEMP 36.8; O2SAT 91; BMI 31.5
--- NOTE | 2023-08-14 16:53 | PC.NURSE ---
ATTEMPTED TO FLUSH PATIENT BORRERO WITHOUT SUCCESS. BORRERO REMOVED, NEW BORRERO PLACED. PATENT AND DRAINING.
--- NOTE | 2023-08-14 16:57 | W.ED.MALEGU ---
HPI - Male Genitourinary General: Chief complaint: Urogenital-Male Stated complaint: cath clogged Time Seen by Provider: 08/14/23 16:35 History of Present Illness: 68-year-old man who presents the emergency room with Barros malfunction. He says he tried to flush it at home and it will not drain. Having a little fullness in his pelvic region. No fevers. He says it was last changed out a couple of weeks ago. He has been on Bactrim and should complete that today. No altered mental status. No nausea or vomiting. Review of Systems Narrative: Constitutional symptoms: Negative except as documented in HPI. Skin symptoms: Negative except as documented in HPI. Eye symptoms: Negative except as documented in HPI. ENMT symptoms: Negative except as documented in HPI. Respiratory symptoms: Negative except as documented in HPI. Cardiovascular symptoms: Negative except as documented in HPI. Gastrointestinal symptoms: Negative except as documented in HPI. Genitourinary symptoms: Negative except as documented in HPI. Musculoskeletal symptoms: Negative except as documented in HPI. Neurologic symptoms: Negative except as documented in HPI. Psychiatric symptoms: Negative except as documented in HPI. Endocrine symptoms: Negative except as documented in HPI. [facility] ED PFSH: Medical History Osteomyelitis Decubitus ulcer of sacral region, unstageable Diastolic CHF Cellulitis Cardiomyopathy Falls frequently Periorbital edema of both eyes Skin ulcer Acute on chronic urinary retention Encephalopathy Lactic acidosis Hypothermia Tobacco dependency Multiple sclerosis Troponin level elevated Urinary retention Acute on chronic renal failure Chronic kidney disease Coronary artery disease Lacunar infarction Hyperlipidemia HTN (hypertension) Ischemic cardiomyopathy History of non-ST elevation myocardial infarction (NSTEMI) CHF (congestive heart failure) Surgical History Hx of colonoscopy with polypectomy History of esophagogastroduodenoscopy (EGD) Hx of heart artery stent stents x 2017- unknown vessels Family History Sister Heart disease Hypertension Myocardial infarction Mother Cancer Daughter Myocardial infarction Social History Smoking and tobacco/nicotine status: current every day tobacco/nicotine user cigarettes Packs smoked per day: 0.5 [ Other cigarette details: Cutting down] Alcohol intake: never Substance/Drug Use: unknown Adopted: No Caregiver/support person: No Lives independently: No Marital status: Single Physical Exam Narrative: EXAM NARRATIVE: General: Alert, no acute distress. Skin: warm and dry Head: Normocephalic Neck: Trachea midline Eye: Extraocular movements are intact. Ears, nose, mouth and throat: Oral mucosa moist Respiratory: Respirations are non-labored Genitourinary: There is a Barros catheter in place. Musculoskeletal: Normal ROM Neurological: Alert and oriented, No focal neurological deficit observed. Psychiatric: Cooperative, appropriate mood & affect. Course Vital Signs: Vital signs: Vital Signs Temperature 98.2 F 08/14/23 16:33 Pulse Rate 83 08/14/23 16:33 Respiratory Rate 18 08/14/23 16:33 Blood Pressure 162/124 08/14/23 16:33 Pulse Oximetry 91 08/14/23 16:33 Oxygen Delivery Me thod Room Air 08/14/23 16:33 MDM - Male Medical Decision Making Attempted flushing Barros this did not work so Barros was replaced. Assessment and plan: Barros catheter malfunction -I am going to extend his antibiotic coverage for another 10 days with Keflex. - Discharged home - Discussed plan with patient. Answered any questions. - Evaluation and treatment of this problem were appropriate in the emergency setting. No radiology studies performed this visit Discharge Plan Discharge Patient Disposition: Home Clinical Impression: Complication of Barros catheter Condition: Stable Prescriptions: New cephalexin 500 mg capsule 500 mg PO BID 10 Days Qty: 20 0RF No Action nitroglycerin 0.4 mg tablet, sublingual 0.4 mg SUBLINGUAL Q5M PRN (Reason: chest pain) Qty: 30 4RF Rx Instructions: until response; do not exceed 3 doses per episode aspirin 81 mg Tablet,Delayed Release (Dr/Ec) 81 mg PO DAILY Qty: 30 0RF carvedilol 12.5 mg tablet 6.25 mg PO BID hydralazine 25 mg tablet 25 mg PO BID tizanidine 4 mg tablet 2 mg PO QID PRN (Reason: Muscle Spasm) furosemide 40 mg tablet 40 mg PO DAILY PRN (Reason: Edema) Bactrim DS 800-160 mg tablet 1 tab PO BID 10 Days Qty: 20 0RF atorvastatin 40 mg tablet 40 mg PO QPM clopidogrel 75 mg tablet 75 mg PO QAM Qty: 90 0RF acetaminophen 325 mg Tablet 650 mg PO QID PRN (Reason: Pain) Discharge Orders: Discharge ED (Routine); Ordered 08/14/23 Ordered By: Zainab Bruce Referrals: Raymon Min FNP [Primary Care Provider] - 4-7 days Discharge Diet: Usual diet Discharge Activity: Resume usual activity Patient Instructions: Barros Catheter Placement and Care (ED) Activity Restrictions/Additional Instructions: Thank you for choosing [facility] for your healthcare needs today. Please realize this is an emergency room and that we are providing you with a medical screening exam and this may not be complete and all inclusive of all the testing and or work up that you may need to determine your ailment or severity of your illness. You have been screened and evaluated and felt safe for discharge. Health conditions do change or evolve sometimes and as such it is important that you follow up with your Primary Doctor to be re checked, 3-5 days is a general good time frame for follow up. You are always welcome to return to the ED for re assessment if your symptoms are worsening or you have new concerns Coding Level of Care Code ED Medical Sales for Kathryn Olmstead
[2023-08-14 17:15] VITALS: BP 180/101; PULSE 83; RESP 16; O2SAT 91
[2023-08-14 18:17] VITALS: BP 171/99; PULSE 81; RESP 20; O2SAT 93
[2023-08-14 19:39] VITALS: PULSE 78; O2SAT 89
--- NOTE | 2023-08-14 19:56 | PC.NURSE ---
Report was given to EMS at bedside for transfer back to patient's home. All questions and concerns were addressed at time of report.
== END 2023-08-14 23:41 | disposition home or self-care (01) ==
PROVIDERS: Emergency Provider Emergency Medicine; PCP Nurse Practitioner Family
DX: T83.098A Other mechanical complication of other urinary catheter, initial encounter (principal); Z79.02 Long term (current) use of antithrombotics/antiplatelets; Z79.82 Long term (current) use of aspirin; F17.210 Nicotine dependence, cigarettes, uncomplicated; I13.0 Hypertensive heart and chronic kidney disease with heart failure and stage 1 through stage 4 chronic kidney disease, or unspecified chronic kidney disease; I25.5 Ischemic cardiomyopathy; N18.9 Chronic kidney disease, unspecified; I50.30 Unspecified diastolic (congestive) heart failure; G35 Multiple sclerosis; I25.10 Atherosclerotic heart disease of native coronary artery without angina pectoris; E78.5 Hyperlipidemia, unspecified; I25.2 Old myocardial infarction; Y73.1 Therapeutic (nonsurgical) and rehabilitative gastroenterology and urology devices associated with adverse incidents
CPT/HCPCS: 51702; 99283

== ENCOUNTER 2023-08-17 17:31 | Emergency (ER) | payer MEDICARE, MEDICAID, SELFPAY ==
[2023-08-17 17:33] VITALS: BP 176/121; PULSE 81; RESP 20; TEMP 36.8; O2SAT 94; BMI 29.5
--- NOTE | 2023-08-17 17:34 | ED_ITS ---
HPI - Male Genitourinary General: Chief complaint: Urogenital-Male Stated complaint: BORRERO CATH PROBLEMS Time Seen by Provider: 08/17/23 17:33 Source: patient and EMS Mode of arrival: EMS Limitations: no limitations History of Present Illness: 68-year-old male who had urinary retenti on has been seen here multiple times for his Borrero is getting clogged he states the Borrero has not been working today he has not followed up with urology is complaining some lower abdominal pain where his bladder is full denies any fevers. Associated symptoms: Deny nausea or vomiting Review of Systems Const: Denies: fever(s) or chills ENMT: Denies: throat pain or dental pain Card: Denies: chest pain Resp: Denies: dyspnea GI: Reports: abdominal pain; Denies: nausea, vomiting or diarrhea : Reports: difficulty urinating Musc: Denies: neck pain or back pain Skin/Breast: Denies: rash Neuro: Denies: headache(s) PFS ED PFSH: Medical History Osteomyelitis Decubitus ulcer of sacral region, unstageable Diastolic CHF Cellulitis Cardiomyopathy Falls frequently Periorbital edema of both eyes Skin ulcer Acute on chronic urinary retention Encephalopathy Lactic acidosis Hypothermia Tobacco dependency Multiple sclerosis Troponin level elevated Urinary retention Acute on chronic renal failure Chronic kidney disease Coronary artery disease Lacunar infarction Hyperlipidemia HTN (hypertension) Ischemic cardiomyopathy History of non-ST elevation myocardial infarction (NSTEMI) CHF (congestive heart failure) Surgical History Hx of colonoscopy with polypectomy History of esophagogastroduodenoscopy (EGD) Hx of heart artery stent stents x , 2018- unknown vessels Family History Sister Heart disease Hypertension Myocardial infarction Mother Cancer Daughter Myocardial infarction Social History Smoking and tobacco/nicotine status: current every day tobacco/nicotine user cigarettes Packs smoked per day: 0.5 [ Other cigarette details: Cutting down] Alcohol intake: never Substance/Drug Use: unknown Adopted: No Caregiver/support person: No Lives independently: No Marital status: Single Physical Exam Const: COMMON NORMALS: no acute distress, patient oriented x3 and healthy appearing HENMT: COMMON NORMALS: normocephalic and atraumatic HEAD & SCALP: normocephalic and atraumatic Eye: COMMON NORMALS: conjunctivae normal CONJUNCTIVA: Yes conjunctivae normal Neck/C-Spine: COMMON NORMALS: supple Chest: COMMONS NORMALS: normal inspection of the chest and normal palpation of entire chest wall Resp: COMMON NORMALS: normal respiratory effort GI: COMMON NORMALS: non-tender : OTHER: Borrero in place but is not draining Extremity: COMMON NORMALS: normal to inspection Neuro: COMMON NORMALS: patient oriented x3 Psych: COMMON NORMALS: mental status grossly normal, Normal thought process present and cooperative THOUGHT PROCESS: Normal thought process present Skin: COMMON NORMALS: no rashes or lesions noted and no wounds GENERAL SKIN EXAM: no rashes or lesions noted Course Vital Signs: Vital signs: Vital Signs Temperature 98.2 F 08/17/23 17:33 Pulse Rate 81 08/17/23 17:33 Respiratory Rate 20 H 08/17/23 17:33 Blood Pressure 176/121 08/17/23 17:33 Pulse Oximetry 94 08/17/23 17:33 Oxygen Delivery Me thod Room Air 08/17/23 17:33 MDM - Male Medical Decision Making Patient presents here with clogged Borrero we did remove his Borrero and he refused having another Borrero placed he states he does not want another Borrero informed him he could still have retention reaccumulate he understands this will discharge he is to follow-up with urology return if worsening Medical Records I reviewed the patient's medical records. No radiology studies performed this visit Discharge Plan Discharge Patient Disposition: Home Clinical Impression: Complication of Borrero catheter Condition: Stable Prescriptions: No Action nitroglycerin 0.4 mg tablet, sublingual 0.4 mg SUBLINGUAL Q5M PRN (Reason: chest pain) Qty: 30 4RF Rx Instructions: until response; do not exceed 3 doses per episode aspirin 81 mg Tablet,Delayed Release (Dr/Ec) 81 mg PO DAILY Qty: 30 0RF carvedilol 12.5 mg tablet 6.25 mg PO BID hydralazine 25 mg tablet 25 mg PO BID tizanidine 4 mg tablet 2 mg PO QID PRN (Reason: Muscle Spasm) furosemide 40 mg tablet 40 mg PO DAILY PRN (Reason: Edema) cephalexin 500 mg capsule 500 mg PO BID 10 Days Qty: 20 0RF atorvastatin 40 mg tablet 40 mg PO QPM clopidogrel 75 mg tablet 75 mg PO QAM Qty: 90 0RF acetaminophen 325 mg Tablet 650 mg PO QID PRN (Reason: Pain) Discharge Orders: Discharge ED (Routine); Ordered 08/17/23 Ordered By: Anju Levine Referrals: Raymon Min FNP [Primary Care Provider] - Discharge Diet: Advance as tolerated Discharge Activity: Resume usual activity Patient Instructions: Borrero Catheter Placement and Care (ED) Coding Level of Care Code ED Compliance Lead for Kathryn Olmstead
[2023-08-17 18:30] VITALS: PULSE 81; RESP 16; O2SAT 92
--- NOTE | 2023-08-17 18:30 | PC.NURSE ---
ATTEMPTED TO FLUSH PATIENT BORRERO WITHOUT SUCCESS. NURSE WENT TO REMOVE BORRERO AND FOUND THAT 10 ML BALLOON HAD 30 ML OF FLUID IN IT. PATIENT STATES THAT HE HAD TRIED TO CLEAN IT AT HOME. NURSE EDUCATED THAT PATIENT WAS NOT INSERTING SOLUTION INTO CORRECT PORT. PATIENT ARGUED WITH NURSE. NURSE EDUCATED THAT BALLOON WAS ONLY 10 ML BALLOON AND NURSE HAD REMOVED 30 ML OF FLUID FROM BORRERO BALLOON. PATIENT VERBALIZED UNDERSTANDING. PATIENT ASKED IF HE WAS ALLOWED TO GO HOME WITHOUT BORRERO. PROVIDER ASKED AND PROVIDER STATED THAT WAS FINE. PATIENT STATED HE JUST WANTED A DEPENDS AND TO GO HOME. PATIENT DRAINING BRIGHT YELLOW/ORANGE URINE WITHOUT BORRERO INSERTION.
--- NOTE | 2023-08-29 09:16 | DCPLANNER ---
fax referral to [place] for er f/u urology
== END 2023-08-18 09:01 | disposition home or self-care (01) ==
PROVIDERS: Emergency Provider Emergency Medicine; PCP Nurse Practitioner Family
DX: T83.098A Other mechanical complication of other urinary catheter, initial encounter (principal); Z79.02 Long term (current) use of antithrombotics/antiplatelets; Z79.82 Long term (current) use of aspirin; F17.210 Nicotine dependence, cigarettes, uncomplicated; I13.0 Hypertensive heart and chronic kidney disease with heart failure and stage 1 through stage 4 chronic kidney disease, or unspecified chronic kidney disease; N18.9 Chronic kidney disease, unspecified; I50.9 Heart failure, unspecified; I43 Cardiomyopathy in diseases classified elsewhere; G35 Multiple sclerosis; I25.10 Atherosclerotic heart disease of native coronary artery without angina pectoris; E78.5 Hyperlipidemia, unspecified; I25.2 Old myocardial infarction
CPT/HCPCS: 99282

== ENCOUNTER 2023-09-13 13:32 | Inpatient (IN) | payer MEDICARE, MEDICAID, SELFPAY ==
[2023-09-13] VITALS (7 sets, daily range): BP systolic 93–101; BP diastolic 53–80; PULSE 57–90; RESP 15–25; TEMP 35.4; O2SAT 91–100; BMI 43.7
--- NOTE | 2023-09-13 13:36 | ECG_ITS ---
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 Measurements Intervals [place] Rate: 49 P: 12 TX: 164 QRS: -52 QRSD: 65 T: -44 QT: 533 QTc: 483 Interpretive Statements SINUS BRADYCARDIA WITH FREQUENT VENTRICULAR PREMATURE COMPLEXES LOW QRS VOLTAGE [QRS DEFLECTION < 0.5/1.0 mV IN LIMB/CHEST LEADS] Right bundle branch block pattern Diffuse nonspecific ST-T changes Baseline artifact Further interpretation is not possible Electronically Signed On 09-14-2023 20:25:29 CDT by Debora Sevilla M.D. [email or web address]
--- NOTE | 2023-09-13 13:38 | XRR_ITS ---
PROCEDURE INFORMATION: Exam: XR Chest Exam date and time: 09/13/2023 2:19 PM Age: 68 years old Clinical indication: Other: AMS TECHNIQUE: Imaging protocol: Radiologic exam of the chest. Views: 1 view. COMPARISON: CR XR chest 1V portable [id number] 07/07/2023 11:17 AM FINDINGS: Lungs: Mild vascular and interstitial prominence is again seen which may be chronic but clinical correlation is needed. Pleural spaces: Unremarkable. No pleural effusion. No pneumothorax. Heart/Mediastinum: Stable cardiomegaly. Bones/joints: Unremarkable. XR/XR chest 1V portable [id number] IMPRESSION: Mild vascular and interstitial prominence is again seen which may be chronic but clinical correlation is needed. Essentially unchanged chest x-ray.
--- NOTE | 2023-09-13 13:43 | ED_ITS ---
HPI - Altered Mental Status 2 General: Chief Complaint: Altered Mental Status Stated Complaint: AMS Time Seen by Provider: 09/13/23 13:37 History of Present Illness: Presents to the ER with by EMS with altered mental status. Patient is unable to provide any history at this time. Patient is responsive to verbal stimuli. EMS states that the family stated that he has been altered for the last couple days but within enough that he refused to go to the ER. However today he become altered even more and they called EMS to come get him. He has been seen here several times for similar instances with acute metabolic encephalopathy and hypertensive crisis. Review of Systems 2 General: Reports: ROS unobtainable due to mental status PFSH ED 2 PFSH: Medical History Osteomyelitis Decubitus ulcer of sacral region, unstageable Diastolic CHF Cellulitis Cardiomyopathy Falls frequently Periorbital edema of both eyes Skin ulcer Acute on chronic urinary retention Encephalopathy Lactic acidosis Hypothermia Tobacco dependency Multiple sclerosis Troponin level elevated Urinary retention Acute on chronic renal failure Chronic kidney disease Coronary artery disease Lacunar infarction Hyperlipidemia HTN (hypertension) Ischemic cardiomyopathy History of non-ST elevation myocardial infarction (NSTEMI) CHF (congestive heart failure) Surgical History Hx of colonoscopy with polypectomy History of esophagogastroduodenoscopy (EGD) Hx of heart artery stent stents x 2017- unknown vessels Family History Sister Heart disease Hypertension Myocardial infarction Mother Cancer Daughter Myocardial infarction Social History Smoking and tobacco/nicotine status: current every day tobacco/nicotine user cigarettes Packs smoked per day: 0.5 [ Other cigarette details: Cutting down] Alcohol intake: never Substance/Drug Use: unknown Adopted: No Caregiver/support person: No Lives independently: No Marital status: Single Physical Exam 2 Const: OTHER: Alert to verbal stimuli but cannot answer questions or follow commands. HENMT: COMMON NORMALS: normocephalic, atraumatic, hearing grossly normal bilaterally, external ears normal and Normal external nose present HEAD & SCALP: normocephalic and atraumatic NOSE: Normal external nose present E XTERNAL EAR: Yes external ears normal Eye: COMMON NORMALS: Equal, round and reactive pupils present, EOMs intact bilaterally, conjunctivae normal and no scleral icterus CONJUNCTIVA: Yes conjunctivae normal PUPIL: Yes Equal, round and reactive pupils present Neck/C-Spine: COMMON NORMALS: no JVD Resp: COMMON NORMALS: normal respiratory effort, No use of accessory muscles and clear to auscultation bilaterally (Decreased breath sounds bilaterally) A USCULTATION: clear to auscultation bilaterally (Decreased breath sounds bilaterally) Cardio: COMMON NORMALS: no JVD, regular rate, regular rhythm, S1 normal heart sound present, S2 normal heart sound present, No gallops present (Cardio), No clicks present (Cardio) and No murmurs present (Cardio) RATE: regular rate RHYTHM: regular rhythm HEART SOUNDS: S1 normal heart sound present and S2 normal heart sound present GI: COMMON NORMALS: Normal to inspection, nondistended, normoactive bowel sounds present, Soft to palpation, non-tender, No hepatosplenomegaly present and no masses PALPATION: Yes Soft to palpation and Yes No hepatosplenomegaly present OTHER: Mildly distended abdomen with pitting edema noted Extremity: NARRATIVE EXTREMITY EXAM: Bilateral lower extremity edema prominent venous stasis and scaling with 2+ pitting edema all the way up through the thigh region. Course 2 Vital Signs: Vital signs: Vital Signs Temperature 95.7 F L 09/13/23 15:14 Pulse Rate 57 L 09/13/23 15:14 Respiratory Rate 15 09/13/23 15:14 Blood Pressure 93/53 09/13/23 15:14 Pulse Oximetry 92 09/13/23 15:14 Oxygen Delivery Me thod Nasal Cannula 09/13/23 15:14 Oxygen Flow Rate 3 09/13/23 15:14 MDM - Altered Mental Status Medical Decision Making EKG send Dr. Arana, we provide to get a better second EKG for further clarification the patient is altered and is not compliant with holding still. Dr. Arana text back to much ectopy and much artifact probably just a computer over read patient's urine came back positive for infection, patient's 2 last urinalysis with culture and sensitivity showed he was pansensitive E. coli. Discussed case with Dr. Sargent who agreed to place him in the ICU for further evaluation and treatment. Differential Diagnosis Likely altered mental status Medical Records I reviewed the patient's medical records. Lab Data I reviewed the patient's lab results. 09/13/23 13:56 09/13/23 13:56 Radiology Impressions Chest X-Ray 09/13/23 13:38 IMPRESSION: Mild vascular and interstitial prominence is again seen which may be chronic but clinical correlation is needed. Essentially unchanged chest x-ray. Laboratory Results WBC 16.84 10^3/uL (3.29-11.43) H 09/13/23 13:56 RBC 4.47 10^6/uL (3.85-5.65) 09/13/23 13:56 Hgb 10.40 g/dL (11.27-16.99) L 09/13/23 13:56 Hct 35.9 % (37-53) L 09/13/23 13:56 MCV 80.3 fl (82-101) L 09/13/23 13:56 MCH 23.3 pg (27-33) L 09/13/23 13:56 MCHC 29.0 g/dL (30-55) L 09/13/23 13:56 RDW 19.8 % (12.1-15.1) H 09/13/23 13:56 Plt Count 216 10^3/cmm (157-399) 09/13/23 13:56 MPV 9.6 fL (7.4-10.4) 09/13/23 13:56 Neut % (Auto) 91.3 % 09/13/23 13:56 Lymph % (Auto) 3.4 % 09/13/23 13:56 [place] % (Auto) 3.5 % 09/13/23 13:56 Eos % (Auto) 1.1 % 09/13/23 13:56 Baso % (Auto) 0.2 % 09/13/23 13:56 Neut # (Auto) 15.38 10^3/uL (1.8-7.7) H 09/13/23 13:56 Lymph # (Auto) 0.6 10^3/uL (0.8-4.8) L 09/13/23 13:56 [place] # (Auto) 0.6 10^3/uL (0.2-0.9) 09/13/23 13:56 Eos # (Auto) 0.2 10^3/uL (0.0-0.8) 09/13/23 13:56 Baso # (Auto) 0.0 10^3/uL (0.0-0.1) 09/13/23 13:56 Nucleated RBC % (auto) 0 % 09/13/23 13:56 Nucleated RBCs # 0.0 /100WBC 09/13/23 13:56 PT 18.60 SECONDS (12.1-14.9) H 09/13/23 13:56 INR 1.49 (0.8-1.2) H 09/13/23 13:56 Specimen Type Arterial 09/13/23 13:56 Sample Site Radial, left 09/13/23 13:56 ABG pH 7.33 (7.35-7.45) L 09/13/23 13:56 ABG pCO2 44.7 mmHg (35-45) 09/13/23 13:56 ABG pO2 73.8 mmHg (80.0-100.0) L 09/13/23 13:56 ABG PO2/FiO2 Ratio 0 09/13/23 13:56 ABG HCO3 23.3 mmol/L (22-26) 09/13/23 13:56 ABG O2 Saturation 94.1 09/13/23 13:56 ABG Base Excess -2.7 mmol/L (-2.0-2.0) L 09/13/23 13:56 Adonis Test Pos 09/13/23 13:56 A-a O2 Gradient 12.7 mmHg (5-10) H 09/13/23 13:56 Hematocrit 32.0 % (42-52) L 09/13/23 13:56 Hgb O2 Saturation 92.2 % (95-100) L 09/13/23 13:56 Carboxyhemoglobin 2.0 %THgb (0.4-20.1) 09/13/23 13:56 Methemoglobin 0.0 % (0.4-1.5) L 09/13/23 13:56 Total Hemoglobin 10.4 g/dL (14-18) L 09/13/23 13:56 Sodium 126.0 mmol/L (131-143) L 09/13/23 13:56 Potassium 4.9 mmol/L (3.5-5.0) 09/13/23 13:56 Glucose 109.0 mg/dL (70-115) 09/13/23 13:56 Ionized Calcium 1.1 mmol/L (1.1-1.4) 09/13/23 13:56 O2 Delivery Device Nc 09/13/23 13:56 O2 Liters/Min 3.0 % 09/13/23 13:56 FiO2 32.0 % 09/13/23 13:56 Metal Cutter ID Cak 09/13/23 13:56 Sodium 125 mmol/L (136-145) L 09/13/23 13:56 Potassium 5.0 mmol/L (3.5-5.1) 09/13/23 13:56 Chloride 94 mmol/L (98-107) L 09/13/23 13:56 Carbon Dioxide 20 mmol/L (22-29) L 09/13/23 13:56 Anion Gap 16.0 (5-19) 09/13/23 13:56 BUN 23 mg/dL (8-23) 09/13/23 13:56 Creatinine 1.5 mg/dL (0.7-1.2) H 09/13/23 13:56 GFR Calculation 46.4 mL/min (90-130) L 09/13/23 13:56 Glucose 111 mg/dL (65-115) 09/13/23 13:56 Calculated Osmolality 264 mOsm/kg (285-295) L 09/13/23 13:56 Lactic Acid 2.2 mmol/L (0.5-2.2) 09/13/23 13:56 Calcium 7.8 mg/dL (8.5-10.5) L 09/13/23 13:56 Magnesium 2.1 mg/dL (1.7-2.3) 09/13/23 13:56 Total Bilirubin 1.1 mg/dL (0.15-1.2) 09/13/23 13:56 AST 7 U/L (0-40) 09/13/23 13:56 ALT < 5 U/L (0-41) 09/13/23 13:56 Alkaline Phosphatase 122 U/L (40-130) 09/13/23 13:56 Troponin T Baseline 88 ng/L (0-15) H 09/13/23 13:56 NT-Pro-B Natriuret Pep 79072 pg/mL (0-125) H 09/13/23 13:56 Total Protein 6.4 g/dL (6.6-8.7) L 09/13/23 13:56 Albumin 2.5 g/dL (3.5-5.2) L 09/13/23 13:56 Globulin 3.9 g/dL (1.3-4.6) 09/13/23 13:56 Procalcitonin 0.86 ng/mL (0-0.5) H 09/13/23 13:56 Urine Color Yellow (Yellow) 09/13/23 14:23 Urine Appearance Cloudy (CLEAR) A 09/13/23 14:23 Urine pH 7 (5-7) 09/13/23 14:23 Ur Specific [place] 1.015 (1.005-1.030) 09/13/23 14:23 Urine Protein 2+ (Negative) H 09/13/23 14:23 Urine Glucose (UA) Norm (Normal) 09/13/23 14:23 Urine Ketones Negative (Negative) 09/13/23 14:23 Urine Blood 3+ (Negative) H 09/13/23 14:23 Urine Nitrate Positive (Negative) H 09/13/23 14:23 Urine Bilirubin Neg (Negative) 09/13/23 14:23 Urine Urobilinogen 4 mg/dL (Negative) H 09/13/23 14:23 Ur Leukocyte Esterase 2+ (Negative) H 09/13/23 14:23 Urine RBC 5-10 /hpf (0-2) H 09/13/23 14:23 Urine WBC Too numerous to cnt /hpf (0-5) H 09/13/23 14:23 Ur Squamous Epith Cells None /hpf (0-5) 09/13/23 14:23 Amorphous Sediment Not Reportable 09/13/23 14:23 Urine Bacteria 2+ /hpf (NONE) H 09/13/23 14:23 Urine Opiates Screen Negative ng/mL (Negative) 09/13/23 14:23 Ur Barbiturates Screen Negative ng/mL (Negative) 09/13/23 14:23 Ur Phencyclidine Scrn Negative ng/mL (Negative) 09/13/23 14:23 Ur Amphetamines Screen Negative ng/mL (Negative) 09/13/23 14:23 U Benzodiazepines Scrn Negative ng/mL (Negative) 09/13/23 14:23 Urine Cocaine Screen Negative ng/mL (Negative) 09/13/23 14:23 U Marijuana (THC) Screen Negative ng/mL (Negative) 09/13/23 14:23 All radiology interpretation(s) finalized by discharge Discharge Plan Discharge Patient Disposition: Admitted As Inpatient Clinical Impression: Acute hyponatremia, Leukocytosis Altered mental status Qualifiers: Altered mental status type: somnolence Qualified Code(s): R40.0 - Somnolence Urinary tract infection Qualifiers: Urinary tract infection type: acute pyelonephritis Qualified Code(s): N10 - Acute pyelonephritis Condition: Stable Coding Level of Care Code ED Director Decision Support for Kathryn Olmstead
[2023-09-13 14:03] LABS: Basophils % 0.2 %; Eosinophils # 0.2 10^3/uL (0.0-0.8); Eosinophils % 1.1 %; Hematocrit 35.9 % (37-53); Lymphocytes # 0.6 10^3/uL (0.8-4.8); Lymphocytes % 3.4 %; Mean Corpuscular Hemoglobin 23.3 pg (27-33); Mean Corpuscular Volume 80.3 fl (82-101); Mean Platelet Volume 9.6 fL (7.4-10.4); Monocytes # 0.6 10^3/uL (0.2-0.9); Monocytes % 3.5 %; Neutrophils # 15.38 10^3/uL (1.8-7.7); Neutrophils % 91.3 %; Nucleated Red Blood Cells % 0 %; Platelet Count 216 10^3/cmm (157-399); Red Blood Count 4.47 10^6/uL (3.85-5.65); Red Cell Distribution Width 19.8 % (12.1-15.1); White Blood Count 16.84 10^3/uL (3.29-11.43)
[2023-09-13 14:07] LABS: ABG PCO2 44.7 mmHg (35-45); ABG PH Result 7.33 (7.35-7.45); Alveolar-Arterial Oxygen Gradi 12.7 mmHg (5-10); Base Excess ABG -2.7 mmol/L (-2.0-2.0); Blood Gas Allen Test Pos; Blood Gas Operator Identificat CAK; Blood Gas Sample Site Radial, left; Blood Gas Sample Type Arterial; HCO3 ABG 23.3 mmol/L (22-26); HGB O2 Sat 92.2 % (95-100); Ionized Calcium Level - ABG 1.1 mmol/L (1.1-1.4); Oxygen Device NC; Oxygen Saturation ABG 94.1; PO2 ABG 73.8 mmHg (80.0-100.0); PO2 FiO2 Ratio Arterial Blood 0; Potassium Level - ABG 4.9 mmol/L (3.5-5.0); Total Hemoglobin 10.4 g/dL (14-18)
[2023-09-13 14:27] LABS: Lactic Sepsis W/Reflex 2.2 mmol/L (0.5-2.2)
[2023-09-13 14:28] LABS: Troponin(5th) Baseline 88 ng/L (0-15)
[2023-09-13 14:31] LABS: INR 1.49 (0.8-1.2)
[2023-09-13 14:35] LABS: Procalcitonin 0.86 ng/mL (0-0.5)
[2023-09-13 14:38] LABS: Blood Urine 3+ (Negative); Glucose Urine UA Norm (Normal); Ketones Urine Negative (Negative); Nitrate Urine Positive (Negative); Protein Urine 2+ (Negative); Specific Gravity, Urine 1.015 (1.005-1.030); Urine Appearance Cloudy (CLEAR); Urine Color Yellow (Yellow); pH Urine 7 (5-7)
[2023-09-13 14:39] LABS: Add Urine Culture? Yes; Add Urine Microscopic? YES; Bacteria Urine 2+ /hpf; Bilirubin Urine Neg (Negative); Leukocyte Esterase Urine 2+ (Negative); Urobilinogen Urine 4 mg/dL (Negative); WBC Urine TOO NUMEROUS TO CNT /hpf (0-5)
[2023-09-13 14:41] LABS: Amphetamines Screen Urine Negative (Negative); Barbiturates Screen Urine Negative (Negative); Benzodiazepines Screen Urine Negative (Negative); Cocaine Screen Urine Negative (Negative); Opiate Screen Urine Negative (Negative); PCP Screen Urine Negative (Negative); THC Screen Urine Negative (Negative)
[2023-09-13 14:46] LABS: Alanine Aminotransferase < 5 U/L (0-41); Albumin Level 2.5 g/dL (3.5-5.2); Alkaline Phosphatase 122 U/L (40-130); Aspartate Amino Transferase 7 U/L (0-40); Blood Urea Nitrogen 23 mg/dL (8-23); Calcium 7.8 mg/dL (8.5-10.5); Carbon Dioxide 20 mmol/L (22-29); Chloride 94 mmol/L (98-107); Globulin 3.9 g/dL (1.3-4.6); Glomerular Filtration Rate 46.4 mL/min (90-130); Glucose 111 mg/dL (65-115); Magnesium 2.1 mg/dL (1.7-2.3); Osmolality Calculated 264 mOsm/kg (285-295); Sodium 125 mmol/L (136-145); Total Bilirubin 1.1 mg/dL (0.15-1.2); Total Protein 6.4 g/dL (6.6-8.7)
--- NOTE | 2023-09-13 15:14 | PC.NURSE ---
Rectal Temp: 95.7, Dr. Tran notified, Wild mazariegos placed on pt. pt noncompliant and attempting to rip off.
--- NOTE | 2023-09-13 15:15 | PC.NURSE ---
pt attempting to spit on staff periodically.
[2023-09-13] MEDS: cefTRIAXone 1,000 MG in sodium chloride 0.9% (plus) 50 ML 100 MG IV (15:34)
--- NOTE | 2023-09-13 15:35 | P.HP_ITS ---
Providers/Chief Complaint 2 Primary Care Provider: AUGUSTINE Craig Chief Complaint: AMS History of Present Illness Armando Coleman is a 68 year old male Armando Coleman is a 68 year old male With past medical history of cardiomyopathy, frequent falls, chronic wounds currently following up with wound care clinic, multiple sclerosis, neurogenic bladder self catheterizes, hyperlipidemia, hypertension, ischemic cardiomyopathy, history of NSTEMI, congestive heart failure presented to the hospital today with altered mental status. Patient is unable to provide any history at this time he is responsive to verbal stimuli. He has been altered for the last couple of days but has been able to refuse to go to the ER however now he is much more altered and therefore family called EMS to come get him. I am very familiar with this patient and he has been here multiple times with the same thing before. Patient is noncompliant and has a history of straight cath secondary to neurogenic bladder and has poor hygiene. On arrival to ER blood pressure 92/53, 15, 57, 95.7, saturating 92% on 3 L nasal cannula. WBC 16,000, hemoglobin 10.4, sodium 125, creatinine 1.5, potassium 5. Chest x-ray shows mild vascular interstitial prominence which may be chronic. Urinalysis positive for UTI, bacteria 2+, urine drug screen negative Medications/Allergies Home Medications Medication Instructions Recorded Confirmed Last Taken Type nitroglycerin 0.4 mg sublingual 0.4 mg sublingual Q5M PRN chest 04/27/19 07/07/23 1 Week Ago Rx tablet pain #30 tabs ~05/30/23 atorvastatin 40 mg tablet 40 mg PO QPM 11/22/21 07/07/23 06/05/23 History clopidogrel 75 mg tablet 75 mg PO QAM #90 tabs 11/24/21 07/07/23 1 Week Ago Rx ~05/30/23 acetaminophen 325 mg tablet 650 mg PO QID PRN Pain 06/06/23 07/07/23 Unknown History aspirin 81 mg tablet,delayed 81 mg PO DAILY #30 tabs 06/24/23 07/07/23 Unknown Rx release carvedilol 12.5 mg tablet 6.25 mg PO BID 06/28/23 07/07/23 Unknown History hydralazine 25 mg tablet 25 mg PO BID 06/28/23 07/07/23 Unknown History furosemide 40 mg tablet 40 mg PO DAILY PRN Edema 07/07/23 07/07/23 Unknown History tizanidine 4 mg tablet 2 mg PO QID PRN Muscle Spasm 07/07/23 07/07/23 Unknown History Allergies Allergy/AdvReac Type Severity Reaction Status Date / Time No Known Allergies Allergy Verified 07/07/23 12:01 PFSH Acute 2 PFSH: Medical History Osteomyelitis Decubitus ulcer of sacral region, unstageable Diastolic CHF Cellulitis Cardiomyopathy Falls frequently Periorbital edema of both eyes Skin ulcer Acute on chronic urinary retention Encephalopathy Lactic acidosis Hypothermia Tobacco dependency Multiple sclerosis Troponin level elevated Urinary retention Acute on chronic renal failure Chronic kidney disease Coronary artery disease Lacunar infarction Hyperlipidemia HTN (hypertension) Ischemic cardiomyopathy History of non-ST elevation myocardial infarction (NSTEMI) CHF (congestive heart failure) Surgical History Hx of colonoscopy with polypectomy History of esophagogastroduodenoscopy (EGD) Hx of heart artery stent stents x 2017- unknown vessels Family History Sister Heart disease Hypertension Myocardial infarction Mother Cancer Daughter Myocardial infarction Social History Smoking and tobacco/nicotine status: current every day tobacco/nicotine user cigarettes Packs smoked per day: 0.5 [ Other cigarette details: Cutting down] Alcohol intake: never Substance/Drug Use: unknown Adopted: No Caregiver/support person: No Lives independently: No Marital status: Single Vitals/I&O/Wt Last Vital Signs Temp 95.7 F L 09/13/23 15:14 Pulse 57 L 09/13/23 15:14 Resp 15 09/13/23 15:14 BP 93/53 09/13/23 15:14 Pulse Ox 92 09/13/23 15:14 O2 Del Method Nasal Cannula 09/13/23 15:14 O2 Flow Rate 3 09/13/23 15:14 Physical Exam 2 Narrative: General: Responsive to verbal stimuli. HEENT: Normocephalic, atraumatic, EOMI, Cardio: Regular rate rhythm, normal S1-S2, Respiratory: Clear to auscultation bilaterally, mild ronchi at bases GI: Abdomen soft, nontender, bowel sounds + Extremities: 2+ pitting edema bilaterally all the way up to groin. multiple skin lesions and skin abrasions neck folds have drainage foul smelling drainage several pressure injuries b/l pedal edema, cellulitis Urinary Catheter Management: Barros: Cath Placed During This Visit: yes Urinary Catheter Date of Insertion: 09/13/23 Urinary Catheter Time of Insertion: 14:25 Data 09/13/23 13:56 09/13/23 13:56 Micro: Microbiology 09/13/23 13:58 Blood Culture - Preliminary Blood SPECIMEN COLLECTED 09/13/23 13:56 Blood Culture - Preliminary Blood SPECIMEN COLLECTED A&P Assessment and plan (1) CHF (congestive heart failure): (2) Diastolic CHF: (3) Chronic kidney disease: (4) Sacral decubitus ulcer, stage IV: (5) Multiple sclerosis: (6) Altered mental status: Qualifiers: Altered mental status type: somnolence Qualified Code(s): R40.0 - Somnolence Plan #Altered Mental Status 2/2 most likely UTI #Multiple skin lesions #Hypothermia #Acute on Chronic congestive heart failure, diastolic #Generalized anasarca #Coronary artery disease status post stent November 2021 #Multiple sclerosis #Neurogenic bladder, self caths at home #CKD #Hyperlipidemia #Hypertension #Cellulitis b/l LE and abdomen area #Chronic osteomyelitis of sacral area ? Patient is presented for altered mental status most likely secondary to UTI ? Meets sepsis criteria on admission with white count 16,000, temp 95.7, hypotension, is fluid responsive ? Check blood culture, urine culture in the past has had pansensitive E. coli on urine has been bacteremic in the past secondary to sacral ulcer. ? Barros catheter placed in ER. Self caths at home but was discharged with a Barros last time. Unsure what happened. ? Check lactic acid ? BNP 24,000 ? Cautious use of IV fluids secondary to history of heart failure EF known 20 to 25% severely reduced. Moderately hypokinetic right ventricle, mitral regurgitation. ? Elevated JVP ? EKG nonischemic however will trend troponins ? Initial troponin 80. 2-hour 6-hour pending at this time ? Placed on vancomycin and Zosyn ? Admit to ICU ? Gentle fluid hydration normal saline 75 cc/h secondary to sepsis. Add Levophed if needed ? Continue aspirin, Plavix, atorvastatin ? Hold carvedilol, Lasix, hydralazine, tizanidine. ? Septic bolus not given secondary to heart failure - Active rewarming protocol patient is hypothermic - Procalcitonin 0.88 Full code Heparin SQ twice daily, SCDs Attestations 2 Medical Necessity Statement*: Altered mental status. Diagnoses CHF (congestive heart failure) I50.9 Diastolic CHF I50.30 Chronic kidney disease N18.9 Sacral decubitus ulcer, stage IV L89.154 Multiple sclerosis G35 Altered mental status R40.0 Altered mental status type: somnolence
--- NOTE | 2023-09-13 15:38 | PC.NURSE ---
Rectal Temp: 95.7, Dr. Tran notified.
[2023-09-13 15:48] LABS: Reflex Lactate Order REFLEX LACTIC ORDERD
[2023-09-13 16:15] LABS: Adenovirus Not Detected (NOT DETECT); Chlamydia Pneumoniae Not Detected (NOT DETECT); Coronavirus 229E,HKU1,NL63,OC4 Not Detected (NOT DETECT); Human Metapneumovirus Not Detected (NOT DETECT); Human Rhinovirus/Enterovirus Not Detected (NOT DETECT); Influenza A Not Detected (NOT DETECT); Influenza A H1 Not Detected (NOT DETECT); Influenza A H1-2009 Not Detected (NOT DETECT); Influenza A H3 Not Detected (NOT DETECT); Influenza B Not Detected (NOT DETECT); Mycoplasma Pneumoniae Not Detected (NOT DETECT); Parainfluenza Virus Type 1 Not Detected (NOT DETECT); Parainfluenza Virus Type 2 Not Detected (NOT DETECT); Parainfluenza Virus Type 3 Not Detected (NOT DETECT); Parainfluenza Virus Type 4 Not Detected (NOT DETECT); Respiratory Syncytial Virus A Not Detected (NOT DETECT); Respiratory Syncytial Virus B Not Detected (NOT DETECT); SARS-COV-2 Not Detected (NOT DETECT)
[2023-09-13 16:16] LABS: Procalcitonin 0.88 ng/mL (0-0.5); Thyroid Stimulating Hormone 2.46 uIU/mL (0.27-4.20)
--- NOTE | 2023-09-13 16:43 | ECG_ITS ---
[facility] Test Date: 2023-09-13 Pat Name: Armando Coleman Department: Room: ICU03 Gender: Male [place]: : 1955 Requested By: Abimael Tran Order Number: [id number] Johanny MD: Debora Sevilla M.D. Measurements Intervals [place] Rate: 69 P: 76 [place]: 216 QRS: 102 QRSD: 210 T: -38 QT: 504 QTc: 540 Interpretive Statements SINUS RHYTHM WITH FIRST DEGREE AV BLOCK WITH FREQUENT VENTRICULAR PREMATURE COMPLEXES IN A BIGEMINAL PATTERN RIGHT AXIS DEVIATION [QRS AXIS > 100] RIGHT BUNDLE BRANCH BLOCK [120+ ms QRS DURATION, UPRIGHT V1, 40+ ms S IN I/aVL/V4/V5/V6] Possible left atrial enlargement MODERATE T-WAVE ABNORMALITY, CONSIDER LATERAL ISCHEMIA [-0.1+ mV T-WAVE IN I/aVL/V5/V6].MODERATE T-WAVE ABNORMALITY, CONSIDER INFERIOR ISCHEMIA [-0.1+ mV T-WAVE IN II/aVF] Compared to ECG 09/13/2023 13:36:00 Sinus bradycardia no longer present Left-axis deviation no longer present Myocardial infarct finding no longer present Electronically Signed On 09-14-2023 20:40:06 CDT by Debora Sevilla M.D. [id number]
[2023-09-13] MEDS: sodium chloride 0.9% 1,000 ML 100 ML IV (16:44)
[2023-09-13] MEDS: piperacillin-tazobactam 3.375 GM in sodium chloride 0.9% (plus) 50 ML IV ×2 (16:50→23:58)
[2023-09-13] MEDS: vancomycin 1,250 MG/250 ML PIGGYBACK 250 MG IV (16:54)
[2023-09-13] MEDS: heparin 5,000 unit/mL INJ 1 mL 5000 UNIT SUBCUT (16:58)
[2023-09-13 17:01] LABS: Alveolar-Arterial Oxygen Gradi 11.4 mmHg (5-10); Arterial Blood Gas Hematocrit 31.3 % (42-52); Blood Gas Allen Test Pos; Blood Gas Operator Identificat CAK; Blood Gas Sample Site Radial, left; Blood Gas Sample Type Arterial; Methemoglobin < 0.0 % (0.4-1.5); Oxygen Device NC; PO2 FiO2 Ratio Arterial Blood 0; Potassium Level - ABG 4.7 mmol/L (3.5-5.0); Total Hemoglobin 10.2 g/dL (14-18)
[2023-09-13 17:02] LABS: ABG PCO2 46.6 mmHg (35-45); Base Excess ABG -3.4 mmol/L (-2.0-2.0); HGB O2 Sat 95.8 % (95-100); Ionized Calcium Level - ABG 1.2 mmol/L (1.1-1.4); Oxygen Saturation ABG 95.5; PO2 ABG 80.9 mmHg (80.0-100.0)
[2023-09-13] MEDS: ipratropium-albuterol 3 mL Neb INHALATION (17:12)
[2023-09-13 17:16] LABS: Lactic Acid level (Lactate) 1.7 mmol/L (0.5-2.2)
[2023-09-13 17:18] LABS: Troponin 5 2HR 84.14 ng/L (0-15)
[2023-09-13 17:25] LABS: Troponin 5 2HR Delta -3.86 ABS# (0-10)
--- NOTE | 2023-09-13 17:28 | XRR_ITS ---
PROCEDURE INFORMATION: Exam: XR Chest Exam date and time: 09/13/2023 6:12 PM Age: 68 years old Clinical indication: Device placement; Picc; Additional info: Post picc insertion, duane placing in icu 3. Should be ready at 1810 TECHNIQUE: Imaging protocol: Radiologic exam of the chest. Views: 1 view. COMPARISON: CR (CHEST, ) 09/13/2023 2:19 PM FINDINGS: Lungs: No focal consolidation. Pleural spaces: No evidence of pneumothorax. No evidence of pleural effusion. Heart/Mediastinum: Right-sided PICC line in place with tip in the region of the distal SVC. Cardiomegaly. Bones/joints: No evidence of acute osseous abnormality. XR/XR chest 1V portable [id number] IMPRESSION: 1. Right-sided PICC line in place with tip in the region of the distal SVC.
--- NOTE | 2023-09-13 17:39 | PC.NURSE ---
Patient AMS at arrival to ICU 3, 3L NC , Barros catheter in place from ED. Patient has extensive wounds, multiple, blisters, scabbing, bleeding open sores generalized. Scrotal edema, blistering, skin loss, bleeding in folds. Multiple sacral wounds, stage two and three. Wound measurements not taken due to patient not tolerating turning at this time, O2 saturation decreased to 60's heart rate in 40's. Bear hugger applied at arrival to ICU. Rectal probe placed for close monitoring. Second IV start left hand, Crash cart moved closer to patient room. Having periods of apnea and bradycardia, decrease in blood pressure and order for PICC line and Levophed received. Dr. Sargent at bedside for verbal orders.
[2023-09-13 17:58] LABS: Urine Random Sodium 39 mmol/L
--- NOTE | 2023-09-13 19:02 | PICC.NOTE ---
Triple lumen PICC placed to right brachial vein. Referred to vascular access nurse for PICC placement due to poor access and use of vasopressors. Risks and benefits discussed and informed consent obtained via phone from patient significant other, Jody. Right arm assessed with right basilic vein measuring 5.0 mm, straight, and apparent best choice for placement. Using sterile technique and MST, right basilic vein accessed x 1 stick. Unable to pass catheter to SVC. Line removed and pressure held until hemostasis obtained. Right brachial vein then assessed and noted to be 3.5 mm. Using sterile technique and MST, right brachial vein accessed x 1 stick. Able to pass cath without difficulty to SVC. Mid-arm circumference measured 10 cm from right AC 29 cm. Trimmed cath 47 cm with 2 cm external length noted. CXR shows tip in distal SVC, in good position for use per radiologist. Line secured with stat-lock. Insertion site covered with Biopatch, gauze, and TSM. Report given to bedside nurse, RENE Tomas.
--- NOTE | 2023-09-13 19:38 | ECG_ITS ---
[facility] Test Date: 2023-09-13 Pat Name: Armando Coleman Department: Room: ICU03 Gender: Male Cell Manager: : 1955 Requested By: Abimael Tran Order Number: [id number] Johanny MD: Debora Sevilla M.D. Measurements Intervals [place] Rate: 65 P: 66 [place]: 246 QRS: 103 QRSD: 195 T: -57 QT: 495 QTc: 515 Interpretive Statements SINUS RHYTHM WITH FIRST DEGREE AV BLOCK RIGHT AXIS DEVIATION [QRS AXIS > 100] RIGHT BUNDLE BRANCH BLOCK [120+ ms QRS DURATION, UPRIGHT V1, 40+ ms S IN I/aVL/V4/V5/V6] MODERATE T-WAVE ABNORMALITY, CONSIDER INFERIOR ISCHEMIA [-0.1+ mV T-WAVE IN II/aVF] Compared to ECG 09/13/2023 16:43:52 Ventricular premature complex(es) no longer present T-wave abnormality still present Possible ischemia still present Electronically Signed On 09-14-2023 20:40:58 CDT by Debora Sevilla M.D. [id number]
[2023-09-13 20:56] LABS: Troponin 5 6HR 76.06 ng/L (0-15)
[2023-09-13 20:57] LABS: Troponin 5 6HR Delta -11.94 ng/L (0-12)
[2023-09-13 22:55] LABS: Albumin Level 2.2 g/dL (3.5-5.2); Anion Gap 15.6 (5-19); Blood Urea Nitrogen 24 mg/dL (8-23); Calcium 7.8 mg/dL (8.5-10.5); Carbon Dioxide 22 mmol/L (22-29); Chloride 94 mmol/L (98-107); Glomerular Filtration Rate 46.4 mL/min (90-130); Glucose 85 mg/dL (65-115); Phosphorus 4.9 mg/dL (2.5-4.5); Potassium 4.6 mmol/L (3.5-5.1); Sodium 127 mmol/L (136-145)
[2023-09-14] VITALS (17 sets, daily range): BP systolic 137–165; BP diastolic 51–107; PULSE 64–87; RESP 10–29; TEMP 35.5–35.7; O2SAT 91–100
--- NOTE | 2023-09-14 02:12 | PC.NURSE ---
Patient agitated and apnic breathing. Patient david's down and oxygen saturation severely drops during apnic periods, doctor made aware of issue and skin issues. Orders to DC fluids due to weeping edema and gave orders to place patient on BiPap. Patient also has orders for CT scan, CT scan not possible during this time due to patients conditions.
[2023-09-14] MEDS: heparin 5,000 unit/mL INJ 1 mL 5000 UNIT SUBCUT ×2 (04:14→15:35)
[2023-09-14 05:48] LABS: Basophils # 0.1 10^3/uL (0.0-0.1); Basophils % 0.3 %; Eosinophils # 0.2 10^3/uL (0.0-0.8); Eosinophils % 1.1 %; Hematocrit 33.4 % (37-53); Lymphocytes # 0.6 10^3/uL (0.8-4.8); Lymphocytes % 3.1 %; Mean Corpuscular HGB Conc 30.8 g/dL (30-55); Mean Corpuscular Hemoglobin 23.7 pg (27-33); Monocytes # 0.6 10^3/uL (0.2-0.9); Monocytes % 2.9 %; Neutrophils # 17.22 10^3/uL (1.8-7.7); Nucleated Red Blood Cells % 0 %; Platelet Count 376 10^3/cmm (157-399); Red Blood Count 4.34 10^6/uL (3.85-5.65); Red Cell Distribution Width 20.8 % (12.1-15.1); White Blood Count 18.71 10^3/uL (3.29-11.43)
[2023-09-14 07:44] LABS: Alanine Aminotransferase < 5 U/L (0-41); Albumin Level 2.4 g/dL (3.5-5.2); Alkaline Phosphatase 131 U/L (40-130); Aspartate Amino Transferase 8 U/L (0-40); Blood Urea Nitrogen 25 mg/dL (8-23); Carbon Dioxide 20 mmol/L (22-29); Chloride 96 mmol/L (98-107); Globulin 4.6 g/dL (1.3-4.6); Glomerular Filtration Rate 46.4 mL/min (90-130); Glucose 79 mg/dL (65-115); Magnesium 2.2 mg/dL (1.7-2.3); Osmolality Calculated 271 mOsm/kg (285-295); Sodium 129 mmol/L (136-145); Total Bilirubin 0.9 mg/dL (0.15-1.2)
[2023-09-14 07:45] LABS: Creatinine Clr Calc Pharmacy 63.3128
[2023-09-14] MEDS: piperacillin-tazobactam 3.375 GM in sodium chloride 0.9% (plus) 50 ML IV (08:12)
[2023-09-14] MEDS: vancomycin 1,250 MG/250 ML PIGGYBACK 250 MG IV (10:14)
[2023-09-14] MEDS: neomycin-poly-bacitracin oint 28 gm 1 APPLIC TOPICAL ×2 (10:25→18:23)
--- NOTE | 2023-09-14 10:30 | CTR_ITS ---
PROCEDURE INFORMATION: Exam: CT Chest Without Contrast; Diagnostic Exam date and time: 09/14/2023 6:02 PM Age: 68 years old Clinical indication: Abdominal tenderness; Shortness of breath; Additional info: AMS, sepsis TECHNIQUE: Imaging protocol: Diagnostic computed tomography of the chest without contrast. Radiation optimization: All CT scans at this facility use at least one of these dose optimization techniques: automated exposure control; mA and/or kV adjustment per patient size (includes targeted exams where dose is matched to clinical indication); or iterative reconstruction. COMPARISON: CR (CHEST, ) 09/13/2023 6:12 PM RADIATION DOSE METRICS: Total DLP (mGy-cm): 2159.52 FINDINGS: Tubes, catheters and devices: There is a peripherally inserted central catheter on the right with the tip appropriately positioned in the SVC near the cavoatrial junction. Lungs: Extensive bilateral upper lung predominant fine reticular and ground-glass opacity. There is decreased AP diameter of the distal trachea and central bronchi consistent with tracheobronchomalacia. Pleural spaces: Moderate right pleural effusion. Density of right pleural effusion cannot be accurately measured due to beam hardening artifact. No pneumothorax. Heart: There is no pericardial effusion. There is marked cardiac enlargement. Coronary arteries: There is severe coronary artery calcification. Lymph nodes: There is no visible mediastinal or hilar lymphadenopathy, although these lymph nodes are suboptimally evaluated without IV contrast. There are mildly enlarged bilateral axillary lymph nodes. The largest largest on the right measures up to 18 x 15 mm on axial series 6, image 31. There is a conglomerate lymph node in the left axilla which measures 31 x 17 mm on axial series 6, image 29. Vasculature: There is moderate aortic atherosclerotic disease. Bones/joints: Bones are unremarkable. Soft tissues: There is subcutaneous edema in the posterior and lateral lower chest wall bilaterally. PROCEDURE INFORMATION: Exam: CT Abdomen And Pelvis Without Contrast Exam date and time: 09/14/2023 6:02 PM Age: 68 years old Clinical indication: Abdominal tenderness; Shortness of breath; Additional info: AMS, sepsis TECHNIQUE: Imaging protocol: Computed tomography of the abdomen and pelvis without contrast. Radiation optimization: All CT scans at this facility use at least one of these dose optimization techniques: automated exposure control; mA and/or kV adjustment per patient size (includes targeted exams where dose is matched to clinical indication); or iterative reconstruction. COMPARISON: CT kidney stone [id number] 07/07/2023 1:49 PM RADIATION DOSE METRICS: Total DLP (mGy-cm): 2159.52 FINDINGS: Liver: The liver is normal. Gallbladder and bile ducts: The gallbladder is normal. There is no biliary dilation. Pancreas: There is mild atrophy of the pancreas. Spleen: The spleen is unremarkable. Adrenal glands: There is hypertrophy of the left adrenal gland. Kidneys and ureters: There are bilateral renal vascular calcifications. No definite intrarenal stones. There is no hydronephrosis or ureteral dilation. Stomach and bowel: The stomach is nondistended, limiting assessment of wall thickness. The small bowel is nondilated. The colon is unremarkable. Appendix: The appendix is obscured. Intraperitoneal space: Moderate simple ascites. No intraperitoneal free air. Vasculature: There is severe aortic atherosclerotic disease. Lymph nodes: There is bilateral inguinal lymphadenopathy. A left inguinal lymph node measures 41 x 29 mm on axial series 10, image 91. A right inguinal lymph node measures 31 x 24 mm on axial series 10, image 93. There are mildly enlarged bilateral external iliac lymph nodes. There are numerous mildly prominent retroperitoneal lymph nodes. No mesenteric or rainer hepatis lymphadenopathy. Urinary bladder: The Barros catheter is appropriately positioned with the bulb and tip within the bladder lumen. The urinary bladder is decompressed, preventing meaningful evaluation of wall thickness. Reproductive: The prostate and seminal vesicles are unremarkable. Extraperitoneal space: There is edema in the presacral space. Bones/joints: There is mild degenerative disease in the lower lumbar spine. The bony pelvis is intact. Soft tissues: There is diffuse subcutaneous edema in the abdominal wall. There are small bilateral fat containing inguinal hernias. There is an intramuscular lipoma in the left gluteus medius. CT/[place] [id number] IMPRESSION: 1. Upper lung predominant reticular and ground-glass opacity. No significant bronchial wall thickening. Possible infection or interstitial edema. 2. Moderate right pleural effusion. 3. Marked cardiac enlargement. 4. Satisfactory right PICC line position. 5. Nonspecific bilateral axillary lymphadenopathy. 6. Tracheobronchomalacia. 7. Incidental findings above. IMPRESSION: 1. Possible neoplastic lymphadenopathy, stable since 07/07/2023. Bilateral inguinal and pelvic lymphadenopathy. Numerous mildly enlarged retroperitoneal lymph nodes. 2. Anasarca is progressive since 07/07/2023. 3. Moderate simple ascites is progressive since 07/07/2023. 4. Incidental findings above.
--- NOTE | 2023-09-14 10:52 | P.PN_ITS ---
Subjective 2 Subjective: seen this am wbc [id number] this am on bipap off restraints more alert and oriented now compared to admission AOx2 BP stable sodium 129 chloride 96 trops delta negative procal 0.88 Vitals/I&O/Wt Last Vital Signs Temp 95.7 F L 09/13/23 16:04 Pulse 79 09/14/23 08:23 Resp 16 09/14/23 08:23 BP 93/53 09/13/23 16:04 Pulse Ox 99 09/14/23 08:23 O2 Del Method BiPAP 09/14/23 08:23 O2 Flow Rate 3 09/13/23 17:13 FiO2 40 09/14/23 08:23 09/13/23 09/14/23 09/14/23 22:59 06:59 14:59 Intake Total 515 / 515 50 / 565 50 / 50 Output Total 400 / 400 Balance 515 / 515 -350 / 165 50 / 50 Weight last 48 hrs Weight 134.717 kg Weight 134.405 kg Physical Exam 2 Narrative: General: Responsive to verbal stimuli. HEENT: Normocephalic, atraumatic, EOMI, Cardio: Regular rate rhythm, normal S1-S2, Respiratory: Clear to auscultation bilaterally, mild ronchi at bases GI: Abdomen soft, nontender, bowel sounds + Extremities: 2+ pitting edema bilaterally all the way up to groin. multiple skin lesions and skin abrasions neck folds have drainage foul smelling drainage. several pressure injuries b/l pedal edema, cellulitis Urinary Catheter Management: Barros: Cath Placed During This Visit: yes Reason for Continuing Indwelling Catheter: Accurate Measurement of Urinary Output in Critically Ill Patients Urinary Catheter Date of Insertion: 09/13/23 Urinary Catheter Time of Insertion: 14:25 Data 09/14/23 05:31 09/14/23 07:01 Micro: Microbiology 09/13/23 14:23 Urine Culture - Preliminary Urine,Clean Catch Gram Negative Rods 09/13/23 13:58 Blood Culture - Preliminary Blood SPECIMEN COLLECTED 09/13/23 13:56 Blood Culture - Preliminary Blood SPECIMEN COLLECTED A&P Assessment and plan (1) CHF (congestive heart failure): (2) Diastolic CHF: (3) Chronic kidney disease: (4) Sacral decubitus ulcer, stage IV: (5) Multiple sclerosis: (6) Altered mental status: Qualifiers: Altered mental status type: somnolence Qualified Code(s): R40.0 - Somnolence Plan #Altered Mental Status 2/2 most likely UTI #Multiple skin lesions, possible scabies, open wounds present #Hypothermia #Acute on Chronic congestive heart failure, diastolic #Generalized anasarca #Coronary artery disease status post stent November 2021 #Multiple sclerosis #Neurogenic bladder, self caths at home #CKD #Hyperlipidemia #Hypertension #Cellulitis b/l LE and abdomen area #Chronic osteomyelitis of sacral area ? Patient is presented for altered mental status most likely secondary to UTI ? Meets sepsis criteria on admission with white count 16,000, temp 95.7, hypotension, is fluid responsive ? Check blood culture, urine culture in the past has had pansensitive E. coli on urine has been bacteremic in the past secondary to sacral ulcer. ? Barros catheter placed in ER. Self caths at home but was discharged with a Barros last time. Unsure what happened. ? Check lactic acid ? BNP 24,000 ? Cautious use of IV fluids secondary to history of heart failure EF known 20 to 25% severely reduced. Moderately hypokinetic right ventricle, mitral regurgitation. ? Elevated JVP ? EKG nonischemic however will trend troponins ? Initial troponin 80. 2-hour 6-hour pending at this time ? Placed on vancomycin and Zosyn ? Admit to ICU ? Gentle fluid hydration normal saline 75 cc/h secondary to sepsis. Add Levophed if needed ? Continue aspirin, Plavix, atorvastatin ? Hold carvedilol, Lasix, hydralazine, tizanidine. ? Septic bolus not given secondary to heart failure - Active rewarming protocol patient is hypothermic - Procalcitonin 0.88 Full code Heparin SQ twice daily, SCDs Todays plan: 09/13 - continue vanc zosyn -interdry sheets in skin folds, and neck area - triple ointment abx on open wounds - stop iv fluids - lasix 40 iv x1 - ct c/a/p pending, RN to take pt today - urine culture positive for gm sadie rods - continue bipap as needed Attestations 2 Medical Necessity Statement*: Altered mental status. Diagnoses CHF (congestive heart failure) I50.9 Diastolic CHF I50.30 Chronic kidney disease N18.9 Sacral decubitus ulcer, stage IV L89.154 Multiple sclerosis G35 Altered mental status R40.0 Altered mental status type: somnolence
[2023-09-14] MEDS: FUROsemide 10 mg/mL SDV 4mL 40 MG IVP (11:27)
[2023-09-14 13:04] LABS: Cortisol Random 18.23 ug/dL (2.47-19.5); Thyroid Stimulating Hormone 1.72 uIU/mL (0.27-4.20)
[2023-09-14] MEDS: piperacillin-tazobactam 3.375 GM in sodium chloride 0.9% (plus) 100 ML IV (15:35)
[2023-09-14] MEDS: morphine 4 mg/mL SDV 1 mL 2 MG IVP (16:10)
--- NOTE | 2023-09-14 16:37 | CTR_ITS ---
PROCEDURE INFORMATION: Exam: CT Head Without Contrast Exam date and time: 09/14/2023 5:59 PM Age: 68 years old Clinical indication: Altered mental status/memory loss; Confusion or disorientation; Additional info: AMS TECHNIQUE: Imaging protocol: Computed tomography of the head without contrast. Radiation optimization: All CT scans at this facility use at least one of these dose optimization techniques: automated exposure control; mA and/or kV adjustment per patient size (includes targeted exams where dose is matched to clinical indication); or iterative reconstruction. COMPARISON: CT head wo con* [id number] 07/07/2023 11:56 AM RADIATION DOSE METRICS: Total DLP (mGy-cm): 1058.78 FINDINGS: Brain: There is xkof-ap-bzqxxcio cerebral atrophy. There are jehj-id-luhxmllc deep white matter microangiopathic ischemic changes. No acute hemorrhage is identified. No mass or mass effect is identified. Cerebral ventricles: Moderately dilated ventricles secondary to atrophy. Paranasal sinuses: Minimal left ethmoidal mucosal disease, stable. Paranasal sinuses are otherwise clear. Mastoid air cells: Small moderate left mastoid effusion, mildly increased compared to prior study. Bones: Unremarkable. No acute fracture. Soft tissues: The soft tissues are within normal limits. CT/CT head wo con* [id number] IMPRESSION: 1. No acute intracranial pathology. 2. Small moderate left mastoid effusion, mildly increased compared to prior study. 3. Senescent changes.
--- NOTE | 2023-09-14 17:30 | PM.CONSULT ---
Providers/Reason For Consult Consulting Physician/Specialty*: General surgery Reason for Consult*: Evaluation for possible debridement of multiple wounds over the upper chest body and sacral decubitus ulcer. Attending Physician: Jane Sargent MD Primary Care Provider: AUGUSTINE Craig History of Present Illness History of Present Illness Armando Coleman is a 68 year old male who has extensive medical history including need for self-catheterization, who has a very poor hygiene at home and has been hospitalized multiple times in the past with sepsis due to UTI and who had a large sacral decubitus ulcer that required long-term wound care. She presents now again with an episode of sepsis and UTI he is noted to have several excoriations around the upper chest and shoulders and also several areas of raw skin in the body and legs the scrotum also look inflamed he also has a sacral decubitus ulcer I was asked to evaluate him for this findings. Medications/Allergies Home Medications Medication Instructions Recorded Confirmed Last Taken Type nitroglycerin 0.4 mg sublingual 0.4 mg sublingual Q5M PRN chest 04/27/19 07/07/23 1 Week Ago Rx tablet pain #30 tabs ~05/30/23 atorvastatin 40 mg tablet 40 mg PO QPM 11/22/21 07/07/23 06/05/23 History clopidogrel 75 mg tablet 75 mg PO QAM #90 tabs 11/24/21 07/07/23 1 Week Ago Rx ~05/30/23 acetaminophen 325 mg tablet 650 mg PO QID PRN Pain 06/06/23 07/07/23 Unknown History aspirin 81 mg tablet,delayed 81 mg PO DAILY #30 tabs 06/24/23 07/07/23 Unknown Rx release carvedilol 12.5 mg tablet 6.25 mg PO BID 06/28/23 07/07/23 Unknown History hydralazine 25 mg tablet 25 mg PO BID 06/28/23 07/07/23 Unknown History furosemide 40 mg tablet 40 mg PO DAILY PRN Edema 07/07/23 07/07/23 Unknown History tizanidine 4 mg tablet 2 mg PO QID PRN Muscle Spasm 07/07/23 07/07/23 Unknown History Allergies Allergy/AdvReac Type Severity Reaction Status Date / Time No Known Allergies Allergy Verified 07/07/23 12:01 Current Medications Generic Name Dose Route Start Last Admin Trade Name Freq PRN Reason Stop Dose Admin Albuterol/Ipratropium 3 ml 09/13/23 15:40 09/13/23 17:12 Ipratropium-Albuterol 3 Ml Neb INHALATION 3 ml Q6H PRN Administration SHORTNESS OF BREATH Aspirin 81 mg 09/14/23 09:00 09/14/23 08:12 Aspirin 81 Mg Ec Tablet PO Not Given DAILY [facility] Atorvastatin Calcium 40 mg 09/13/23 18:00 09/13/23 18:52 Atorvastatin 40 Mg Tablet PO Not Given QPM EM Clopidogrel Bisulfate 75 mg 09/14/23 06:00 09/14/23 05:00 Clopidogrel 75 Mg Tablet PO Not Given QAM [facility] Heparin Sodium (Porcine) 5,000 unit 09/13/23 15:45 09/14/23 15:35 Heparin 5,000 Unit/Ml Inj 1 Ml SUBCUT 5,000 unit Q12H EM Administration Vancomycin/PEG/NADA/Lysine/Water 1,250 mg in 250 mls @ 250 mls/hr 09/14/23 10:00 09/14/23 11:17 Vancocin IV Infused Q18H EM Infusion Piperacillin Sod/Tazobactam 100 mls @ 25 mls/hr 09/14/23 16:00 09/14/23 15:35 Sod 3.375 gm/ Sodium Chloride IV 25 mls/hr Q8H EM Administration Morphine Sulfate 2 mg 09/14/23 15:40 09/14/23 16:10 Morphine 4 Mg/Ml Sdv 1 Ml IVP 2 mg Q4H PRN Administration SEVERE PAIN Neomycin/Polymyxin/Bacitracin 1 applic 09/14/23 09:00 09/14/23 10:25 Rpfkmwbr-Fvqo-Qbrwzutgca Oint 28 Gm TOPICAL 1 applic BID EM Administration PFSH Acute PFSH: Medical History Osteomyelitis Decubitus ulcer of sacral region, unstageable Diastolic CHF Cellulitis Cardiomyopathy Falls frequently Periorbital edema of both eyes Skin ulcer Acute on chronic urinary retention Encephalopathy Lactic acidosis Hypothermia Tobacco dependency Multiple sclerosis Troponin level elevated Urinary retention Acute on chronic renal failure Chronic kidney disease Coronary artery disease Lacunar infarction Hyperlipidemia HTN (hypertension) Ischemic cardiomyopathy History of non-ST elevation myocardial infarction (NSTEMI) CHF (congestive heart failure) Surgical History Hx of colonoscopy with polypectomy History of esophagogastroduodenoscopy (EGD) Hx of heart artery stent stents x 2017- unknown vessels Family History Sister Heart disease Hypertension Myocardial infarction Mother Cancer Daughter Myocardial infarction Social History Smoking and tobacco/nicotine status: current every day tobacco/nicotine user cigarettes Packs smoked per day: 0.5 [ Other cigarette details: Cutting down] Alcohol intake: never Substance/Drug Use: unknown Adopted: No Caregiver/support person: No Lives independently: No Marital status: Single Vitals/I&O/Wt Last Vital Signs Temp 95.7 F L 09/13/23 16:04 Pulse 80 09/14/23 15:31 Resp 16 09/14/23 08:23 BP 93/53 09/13/23 16:04 Pulse Ox 98 09/14/23 15:31 O2 Del Method BiPAP 09/14/23 08:23 O2 Flow Rate 3 09/13/23 17:13 FiO2 30 09/14/23 15:31 09/14/23 09/14/23 09/14/23 06:59 14:59 22:59 Intake Total 50 / 565 300 / 300 Output Total 400 / 400 Balance -350 / 165 300 / 300 Weight last 48 hrs Weight 297 lb Weight 296 lb 5 oz Physical Exam Narrative: Patient is alert but currently on BiPAP and cannot communicate very well during my examination. ? There is evident anasarca with severe tissue swelling at the level of the chest abdomen bilateral lower extremities in the scrotum. There are some areas of maceration of the skin due to the intense swelling. Especially at the level of the skin folds. In the upper chest and shoulders there is multiple excoriations that may be consistent with insect bites, scabies or picking. Sacral decubitus ulcer was evaluated. There is no significant worsening since last hospital admission, there is mostly have epithelialized with 2 small areas of granulation tissue and is mobile tunnel at the level of the sacrum. There is no purulence and no evidence of active infection at this level. Scrotum is severely edematous and thickened, this is likely due to soft tissue edema rather than an active inflammatory process. Bilateral legs are also swollen and somehow erythematous raising concern for possible cellulitis on top of his anasarca. Urinary Catheter Management: Barros: Cath Placed During This Visit: yes Reason for Continuing Indwelling Catheter: Accurate Measurement of Urinary Output in Critically Ill Patients Urinary Catheter Date of Insertion: 09/13/23 Urinary Catheter Time of Insertion: 14:25 Data 09/14/23 05:31 09/14/23 07:01 Micro: Microbiology 09/13/23 13:58 Blood Culture - Preliminary Blood NEGATIVE TO DATE 09/13/23 13:56 Blood Culture - Preliminary Blood NEGATIVE TO DATE 09/13/23 14:23 Urine Culture - Preliminary Urine,Clean Catch Gram Negative Rods A&P Assessment and plan (1) Systolic congestive heart failure: (2) Hypertensive emergency: (3) Acute hyponatremia: (4) Urinary tract infection: Qualifiers: Urinary tract infection type: acute pyelonephritis Qualified Code(s): N10 - Acute pyelonephritis (5) Pressure injury of deep tissue of sacral region: Plan After complete history, physical examination and review of all available clinical data the following is my assessment. At this moment in time it appears that majority of patient symptoms and skin changes are due to severe soft tissue swelling and anasarca rather than a localized soft tissue infection. Areas of excessive moisture and skin folds can be controlled with Interdry, order and that the main treatment will be maximal medical management and possible diuresis to mobilize fluid from the tissue thus preventing further worsening of the skin condition. Regarding the sacral decubitus ulcer at this moment there is no indication for debridement the wound is mostly epithelialized with only a small toenail in the center of the wound that does not have any purulence. Patient overall clinical status is poor, he appears to be unhealthy and appears to have very poor hygiene. No further intervention is needed at this time from the general surgery standpoint. If there is any worsening or changes of his skin condition General surgery will remain available and can be reconsult as needed. Otherwise we will recommend local wound care at the bedside by nursing staff including padding of bony prominences and protective layers at the level of the sacral decubitus ulcer. Coding Level of Care Code Acute Code for [facility] Diagnoses Systolic congestive heart failure I50.20 Hypertensive emergency I16.1 Acute hyponatremia E87.1 Urinary tract infection N10 Urinary tract infection type: acute pyelonephritis Pressure injury of deep tissue of sacral region L89.156
[2023-09-14] MEDS: nystatin powder 15 gm Btl 1 APPLIC TOPICAL (18:24)
[2023-09-14 18:40] LABS: ABG PCO2 54.3 mmHg (35-45); ABG PH Result 7.24 (7.35-7.45); Alveolar-Arterial Oxygen Gradi 5.6 mmHg (5-10); Arterial Blood Gas Hematocrit 32.5 % (42-52); Base Excess ABG -4.5 mmol/L (-2.0-2.0); Blood Gas Allen Test Pos; Blood Gas Operator Identificat CAK; Blood Gas Sample Site Radial, left; Blood Gas Sample Type Arterial; Carboxyhemoglobin 1.5 %THgb (0.4-20.1); HCO3 ABG 23.2 mmol/L (22-26); HGB O2 Sat 96.1 % (95-100); Ionized Calcium Level - ABG 1.2 mmol/L (1.1-1.4); Methemoglobin 0.4 % (0.4-1.5); Oxygen Device BIPAP; PO2 FiO2 Ratio Arterial Blood 0; Potassium Level - ABG 4.6 mmol/L (3.5-5.0); Total Hemoglobin 10.6 g/dL (14-18)
--- NOTE | 2023-09-14 18:58 | PM.EVENT ---
Event Note Event Note: Dr. Sargent requested the patient to be intubated secondary to long apneic episodes and respiratory acidosis even on BiPAP. When I arrived to the room I talked to the patient and he was adamant against having a ET-tube placed and going on the ventilator. It was explained to him in great detail that his overall condition is worsening and that if he were to stop breathing that he most likely would . Patient understood this and still declined to have an ET tube placed. CODE STATUS was further verified. Patient stated that even if his heart stopped he did not want an ET tube placed, he does not want compressions, he would allow us to only do shocks if they were indicated. I explained to him that if this would severely limit our resuscitation ability. He understands this and still stands for him on his decision.
[2023-09-14 19:31] LABS: Lactate (Lactic Acid level) 1.3 mmol/L (0.5-2.2)
[2023-09-15] VITALS (49 sets, daily range): BP systolic 100–165; BP diastolic 48–101; PULSE 75–93; RESP 6–26; TEMP 35.9–36.6; O2SAT 82–100; BMI 42.1
[2023-09-15] MEDS: piperacillin-tazobactam 3.375 GM in sodium chloride 0.9% (plus) 100 ML IV ×3 (01:19→16:11)
[2023-09-15 06:21] LABS: Basophils # 0.1 10^3/uL (0.0-0.1); Basophils % 0.4 %; Eosinophils # 0.9 10^3/uL (0.0-0.8); Eosinophils % 7.2 %; Hematocrit 34.1 % (37-53); Lymphocytes # 0.5 10^3/uL (0.8-4.8); Lymphocytes % 4.1 %; Mean Corpuscular Hemoglobin 23.2 pg (27-33); Mean Corpuscular Volume 79.9 fl (82-101); Mean Platelet Volume 9.4 fL (7.4-10.4); Monocytes # 0.5 10^3/uL (0.2-0.9); Monocytes % 3.7 %; Neutrophils # 10.78 10^3/uL (1.8-7.7); Neutrophils % 83.9 %; Nucleated Red Blood Cells % 0 %; Platelet Count 174 10^3/cmm (157-399); Red Blood Count 4.27 10^6/uL (3.85-5.65); Red Cell Distribution Width 19.6 % (12.1-15.1); White Blood Count 12.86 10^3/uL (3.29-11.43)
[2023-09-15 06:41] LABS: Alanine Aminotransferase < 5 U/L (0-41); Albumin Level 2.4 g/dL (3.5-5.2); Alkaline Phosphatase 211 U/L (40-130); Aspartate Amino Transferase 13 U/L (0-40); Blood Urea Nitrogen 28 mg/dL (8-23); Carbon Dioxide 22 mmol/L (22-29); Chloride 101 mmol/L (98-107); Globulin 4.6 g/dL (1.3-4.6); Glomerular Filtration Rate 46.4 mL/min (90-130); Glucose 65 mg/dL (65-115); Magnesium 2.2 mg/dL (1.7-2.3); Osmolality Calculated 288 mOsm/kg (285-295); Sodium 137 mmol/L (136-145); Total Bilirubin 0.8 mg/dL (0.15-1.2)
[2023-09-15 06:45] LABS: Anion Gap 19.2 (5-19); Potassium 5.2 mmol/L (3.5-5.1)
[2023-09-15] MEDS: vancomycin 1,250 MG/250 ML PIGGYBACK 250 MG IV (07:11)
[2023-09-15] MEDS: heparin 5,000 unit/mL INJ 1 mL 5000 UNIT SUBCUT ×2 (07:11→16:13)
--- NOTE | 2023-09-15 07:20 | PC.OT ---
OT EVALUATION ORDERS RECEIVED. PATIENT INTUBATED; HOLD OT EVALUATION AT THIS TIME.
[2023-09-15 07:39] LABS: Glucose Point of Care 67 mg/dL (70-110)
[2023-09-15] MEDS: ipratropium-albuterol 3 mL Neb INHALATION ×3 (07:58→19:39)
[2023-09-15 09:24] LABS: Glucose Point of Care 83 mg/dL (70-110)
--- NOTE | 2023-09-15 09:29 | PC.CHAP ---
Pastoral Care Encounter/Spiritual Assessment Type of Contact [] Declined diesel mechanic apprentice visit [] Patient/Family/Request visit [] Outpatient visit [] Follow-up visit [] Physician referral [] Code/Alert [x] Routine visit [] Staff referral [] Actively dying [] Patient sleeping [] Family support [] [] Out of room [] Palliative care [] [] Receiving care in room [] Pre-surgical visit [] Trauma [] Long length of stay [z] ICU visit [] Other: Relational/Emotional Strength [] Patient feels connected with others/family/visitors/staff [] Distress [] Loneliness/isolation [] Abandonment Spirituality of Patient [] Person of Shavonne [] Attends Episcopalian of their [place] [] Believes in Prayer [] Reads Bible or Denominational materials [] There are Spiritual issues to be addressed [employer] Executive Security Interventions [z] Prayer [] Active listening [] Non-anxious presence [] Spiritual/emotional support [] Crisis/trauma care [] Spiritual counseling [] Bereavement support [] Provided bereavement packet [] Provided Bible/devotional materials [] Provided toy/stuffed animal, coloring book to patient or family member [] Provided Communion [] Anointing/[place] [] Salvation [] Completed spiritual assessment [] Other: Impact on Illness or Injury [] Angry [] Fearful [] Anxious [] Often cries [] Exhaustion [] Unable to work [] Unable to attend taoist [] Unable to walk/stand [] Unable to read [] Unable to drive [] Unable to eat/drink [] Unable to sleep [] Unable to be with family [] Patient intubated [] Other: Summary patient has setter Time spent with patient
--- NOTE | 2023-09-15 09:46 | PC.PHAR ---
PT ALTERED- NATICK FAXIN MED LIST 09/15/23 9:46AM
[2023-09-15] MEDS: dextrose 50% syringe 50 mL IVP (09:48)
[2023-09-15] MEDS: nystatin powder 15 gm Btl 1 APPLIC TOPICAL ×2 (09:51→17:35)
[2023-09-15] MEDS: neomycin-poly-bacitracin oint 28 gm 1 APPLIC TOPICAL ×2 (09:51→17:37)
[2023-09-15] MEDS: aspirin 81 mg EC Tablet PO (09:51)
[2023-09-15 10:39] LABS: Glucose Point of Care 124 mg/dL (70-110)
--- NOTE | 2023-09-15 11:42 | PC.NURSE ---
upon morning assessment, patient was found to have a blood sugar of 67 and an altered mental status. unsure if this is related as patient had an altered mental status upon arrival to the hospital. Unable to take anything orally due to AMS. Nurse alerted Dr Pace and received orders for an amp of d50. AMP of d50 administered, blood sugar rechecked and it increased to 124. Mental status slightly improved and patient is awake enough to drink now, but he is still altered. Lethargic and confused.
--- NOTE | 2023-09-15 11:44 | XRR_ITS ---
PROCEDURE INFORMATION: Exam: XR Chest Exam date and time: 09/15/2023 11:50 AM Age: 68 years old Clinical indication: Shortness of breath; Patient HX: AMS, SOB; Additional info: Resp failure TECHNIQUE: Imaging protocol: Radiologic exam of the chest. 1image(s) are provided. Views: 1 view. COMPARISON: 1[place] [id number] 09/14/2023 6:02 PM 2. CR (CHEST, ) 09/13/2023 6:12 PM 3. CR (CHEST, ) 09/13/2023 2:19 PM 4. CR XR chest 1V portable [id number] 07/07/2023 11:17 AM FINDINGS: Tubes, catheters and devices: The right PICC line remains. The tip currently appears to overlie the cavoatrial junction. Lungs: There is some prominence of the central interstitial markings similar overall. There is some patchy attenuation of the lower lung zones right slightly more so than left.No interval lobar type consolidation is appreciated. Pleural spaces: There is some pleural fluid blunting the costophrenic angles right more so than left.No pneumothorax is appreciated. Heart/Mediastinum: The cardiomediastinal silhouette is borderline in size.This can be seen with central averaging as well as laura enlargement.No cardiac decompensation is appreciated. Diaphragm: There is slight asymmetric right hemidiaphragm elevation. Bones/joints: Osseous alignment is maintained. No interval displaced fracture or dislocation is appreciated. Soft tissues: No radiopaque foreign body or subcutaneous emphysema is appreciated. Other findings: No other significant interval changes are appreciated. XR/XR chest 1V portable [id number] IMPRESSION: 1. There is prominence of the central vessels and interstitial markings suggestive of increased volume status, pulmonary hypertension with the associated prominence of the slick and azygous venous silhouette margins. Consider echocardiography. 2. There is some patchy atelectatic consolidation of the lung bases suggestive of some early inflammation. No interval lobar type consolidation or cardiac decompensation is appreciated.
--- NOTE | 2023-09-15 11:50 | PC.SOCIAL ---
IMM Update Pg. 2 of IMM updated. Copy provided at bedside.
[2023-09-15 12:12] LABS: ABG PCO2 55.8 mmHg (35-45); ABG PH Result 7.24 (7.35-7.45); Alveolar-Arterial Oxygen Gradi 8.7 mmHg (5-10); Arterial Blood Gas Hematocrit 32.8 % (42-52); Base Excess ABG -3.8 mmol/L (-2.0-2.0); Blood Gas Allen Test Pos; Blood Gas Operator Identificat CAK; Blood Gas Sample Site Radial, left; Blood Gas Sample Type Arterial; Carboxyhemoglobin 1.6 %THgb (0.4-20.1); HGB O2 Sat 95.2 % (95-100); Ionized Calcium Level - ABG 1.2 mmol/L (1.1-1.4); Methemoglobin 0.3 % (0.4-1.5); Oxygen Device NC; PO2 ABG 92.8 mmHg (80.0-100.0); PO2 FiO2 Ratio Arterial Blood 0; Potassium Level - ABG 4.4 mmol/L (3.5-5.0); Total Hemoglobin 10.7 g/dL (14-18)
--- NOTE | 2023-09-15 12:15 | PC.PHAR ---
PTS' STATES PT HAS NOT BEEN TAKING ATORVASTATIN 40MG EVERY EVENING, CARVEDILOL 12.5MG TWICE DAILY, OR METOPROLOL SUCCINATE ER 25MG DAILY. SHE IS NOT SURE IF HE SHOULD BE TAKING AND JUST HAS NOT FILLED RECENTLY.
[2023-09-15] MEDS: FUROsemide 10 mg/mL SDV 4mL 40 MG IVP ×2 (12:30→17:31)
[2023-09-15 12:38] LABS: Glucose Point of Care 103 mg/dL (70-110)
[2023-09-15 12:48] LABS: Iron 16 ug/dL (59-158)
[2023-09-15 13:04] LABS: Vitamin B12 1395 pg/mL (232-1245)
[2023-09-15 14:01] LABS: Glucose Point of Care 107 mg/dL (70-110)
[2023-09-15 14:31] LABS: Percent Saturation 5.9 % (20-50); Total Iron Binding Capacity 269 mcg/dl; Unsaturated Iron Binding 253 ug/dL (112-347)
[2023-09-15 15:33] LABS: Ammonia 39 umol/L (16-60)
--- NOTE | 2023-09-15 16:15 | P.PN_ITS ---
Subjective 2 Subjective: Hospital course, labs appreciated. Examination today patient is on nasal cannula of 3, if having episodes of sleep apnea. Wakes up in between, having some conversation but slightly confused. Hemodynamically stable. Has remained afebrile. Appreciate labs. Vitals/I&O/Wt Last Vital Signs Temp 97.1 F L 09/15/23 12:00 Pulse 79 09/15/23 15:00 Resp 25 H 09/15/23 15:00 BP 152/74 09/15/23 15:00 Pulse Ox 86 L 09/15/23 15:00 O2 Del Method Nasal Cannula 09/15/23 12:00 O2 Flow Rate 3 09/15/23 12:00 FiO2 30 09/15/23 09:00 09/15/23 09/15/23 09/15/23 06:59 14:59 22:59 Intake Total 450 / 450 Output Total 1000 / 1650 700 / 700 Balance -1000 / -462.5 -250 / -250 Weight last 48 hrs Weight 129.501 kg Weight 134.717 kg Weight 134.405 kg Physical Exam 2 Narrative: General: AO x 1-2, slow to respond, having episodes of, no acute distress sleep while he is of BiPAP HEENT: Normocephalic, atraumatic, EOMI, Cardio: Regular rate rhythm, normal S1-S2, Respiratory: Clear to auscultation bilaterally, mild ronchi at bases GI: Abdomen soft, nontender, bowel sounds + Extremities: 2+ pitting edema bilaterally all the way up to groin. multiple skin lesions and skin abrasions neck folds have drainage foul smelling drainage. several pressure injuries b/l pedal edema Urinary Catheter Management: Barros: Cath Placed During This Visit: yes Reason for Continuing Indwelling Catheter: Accurate Measurement of Urinary Output in Critically Ill Patients Urinary Catheter Date of Insertion: 09/13/23 Urinary Catheter Time of Insertion: 14:25 Quick SOFA Score: Respiratory Rate: 25 Blood Pressure: 152/74 Wiley Coma Scale: 13 qSOFA Score: 2 If qSOFA score 2 or greater, continue: PaO2/FiO2 Ratio (mmHg): 268 Blood Pressure Mean: 100 Bilirubin (mg/dl): 0.8 Platelets (x10?/ml): 174 C reatinine (mg/dl): 1.5 SOFA Score: 4 Evaluation: Current stage of sepsis: sepsis Sepsis stage criteria used: [facility] Sep-1 and Sepsis-3 Crystalloid fluids: less than 30 mL/kg crystalloid fluids ordered Reasons: heart failure Blood cultures ordered: Yes Possible source: pulmonary and skin/soft tissue Focused Exam: Vital signs: Temp Pulse Resp BP Pulse Ox O2 Del Method O2 Flow Rate 09/15/23 15:00 79 25 H 152/74 86 L 09/15/23 14:30 79 25 H 150/81 82 L 09/15/23 14:00 78 18 144/79 09/15/23 14:00 80 09/15/23 13:30 82 14 148/75 93 09/15/23 13:00 81 19 H 137/79 09/15/23 12:30 79 15 141/74 09/15/23 12:00 97.1 F L 82 14 128/73 92 Nasal Cannula 3 09/15/23 11:30 82 6 L 148/88 93 09/15/23 11:00 80 14 148/76 92 09/15/23 10:30 85 16 144/79 99 09/15/23 10:00 84 16 136/82 97 09/15/23 09:30 83 18 145/74 96 09/15/23 09:00 97.0 F L 80 6 L 125/64 97 BiPAP 09/15/23 08:30 85 14 140/72 09/15/23 08:07 90 09/15/23 08:02 87 16 98 BiPAP 09/15/23 08:00 148/79 98 09/15/23 07:58 83 99 09/15/23 07:30 86 14 149/64 100 09/15/23 07:00 83 19 H 137/65 95 09/15/23 06:30 83 19 H 150/74 09/15/23 06:00 82 17 130/69 95 BiPAP 09/15/23 06:00 86 09/15/23 05:30 85 19 H 137/73 09/15/23 05:00 83 18 137/76 97 09/15/23 04:30 81 16 141/68 85 L FiO2 09/15/23 15:00 09/15/23 14:30 09/15/23 14:00 09/15/23 14:00 09/15/23 13:30 09/15/23 13:00 09/15/23 12:30 09/15/23 12:00 09/15/23 11:30 09/15/23 11:00 09/15/23 10:30 09/15/23 10:00 09/15/23 09:30 09/15/23 09:00 30 09/15/23 08:30 09/15/23 08:07 09/15/23 08:02 30 09/15/23 08:00 09/15/23 07:58 30 09/15/23 07:30 09/15/23 07:00 09/15/23 06:30 09/15/23 06:00 30 09/15/23 06:00 09/15/23 05:30 09/15/23 05:00 09/15/23 04:30 Date exam was performed: 09/15/23 Time exam was performed: 16:15 2 Sepsis Screen No Definite Risk 09/13/23 15:14 Respiratory Rate 25 breaths/min H (12 - 18) 09/15/23 15:00 Blood Pressure 152/74 mmHg 09/15/23 15:00 Wiley Coma Scale Score 13 09/15/23 12:00 Quick SOFA Score 1 09/13/23 15:14 SOFA Score: 2 ABG PO2/FiO2 Ratio 0 09/15/23 12:00 Marianne Coma Scale Score 13 09/15/23 12:00 Blood Pressure Mean 100 mmHg 09/15/23 15:00 Total Bilirubin 0.8 mg/dL (0.15-1.2) 09/15/23 05:41 Platelet Count 174 10^3/cmm (157-399) 09/15/23 05:41 Creatinine 1.5 mg/dL (0.7-1.2) H 09/15/23 15:08 Data 09/15/23 05:41 09/15/23 05:41 Micro: Microbiology 09/13/23 14:23 Urine Culture - Final Urine,Clean Catch Proteus mirabilis esbl 09/13/23 13:58 Blood Culture - Preliminary Blood NEGATIVE TO DATE 09/13/23 13:56 Blood Culture - Preliminary Blood NEGATIVE TO DATE A&P Assessment and plan (1) Respiratory failure with hypercapnia: Currently patient is BiPAP dependent. Repeat ABG. Concerns for hypercapnia and respiratory acidosis. Most likely in setting of CHF exacerbation. Pneumonia ruled out on admission on CT chest. Oxygen supplementation keeping saturation over 88%. Patient does have a history of COPD. Pulmicort twice daily, DuoNebs every 6 hours. Continue BiPAP for now as patient tolerates. Will plan for intermittent BiPAP weaning. (2) Altered mental status: Most likely in setting of sepsis and hypercapnia leading to respiratory acidosis. Aspiration precaution, fall precaution. Continue to monitor. Episode of agitation for now. Will discontinue sitter for now. Check ammonia levels. Qualifiers: Altered mental status type: somnolence Qualified Code(s): R40.0 - Somnolence (3) Systolic congestive heart failure: Last echocardiogram from June showed an EF of 2024% with global severe hypokinesia, moderate eccentric MR, mild TR. Strict input output charting, daily weights. Continue Barros catheterization. Fluid restriction to less than 1500 cc. IV Lasix 40 mg daily. Will plan for repeat Lasix depending on the hemodynamics and urine response to Lasix. Target 1 to 1.5 L negative in next 24 hours. (4) Sepsis: SIRS: Tachycardic, hypothermia, Leukocytosis on admission. Currently improving Source: Cellulitis, UTI End organ damage: Acute infectious encephalopathy, respiratory failure Patient did not receive full 30 mL/kg BW given concerns for congestive heart failure. Monitor blood pressures. Keep mean artery pressure 65 mmHg. Follow-up blood culture, urine culture. Check urine Legionella and bacterial antigen. Continue broad-spectrum antibiotics with vancomycin and Zosyn for now. Will de- escalate as per culture results. (5) Hypertensive emergency: Goal blood pressure less than 140/90 mmHg. Blood pressure slightly elevated. For now hold off on antihypertensive for maximal diuretic response. Will restart antihypertensives as per goal blood pressures. (6) Acute hyponatremia: Most likely hypervolemic hyponatremia. Continue to monitor. Repeat BMP in evening. (7) Urinary tract infection: Appreciate culture history. Patient has history of infection in the past from Enterococcus VRE, Staphylococcus, pansensitive E. coli. For now continue with broad-spectrum antibiotics. Continue with vancomycin and Zosyn for now. Qualifiers: Urinary tract infection type: acute pyelonephritis Qualified Code(s): N 10 - Acute pyelonephritis (8) Pressure injury of deep tissue of sacral region: History of chronic sacral osteomyelitis and decubitus ulcer. Appreciate surgical recommendations. No plan for debridement for now. (9) Sacral decubitus ulcer, stage IV: (10) Multiple sclerosis: (11) Respiratory acidosis: Plan CODE STATUS: Appreciate documentation. Documentation admission patient declined intubation. Patient does not want to be intubated or resuscitated though he is okay with the ICU admission, ACLS protocol medication and defibrillation if needed. Currently limited resuscitation. NPO. Protonix for PUD prophylaxis heparin 5000 every 12 hourly for DVT prophylaxis Attestations 2 Medical Necessity Statement*: Requires further hospitalization for management of respiratory failure in setting of hypercapnia, respiratory acidosis, sepsis in setting of UTI, cellulitis as patient remains BiPAP dependent, congestive heart failure Diagnoses Systolic congestive heart failure I50.20 Respiratory failure with hypercapnia J96.92 Altered mental status R40.0 Altered mental status type: somnolence Hypertensive emergency I16.1 Sepsis A41.9 Acute hyponatremia E87.1 Urinary tract infection N10 Urinary tract infection type: acute pyelonephritis Pressure injury of deep tissue of sacral region L89.156 Sacral decubitus ulcer, stage IV L89.154 Multiple sclerosis G35 Respiratory acidosis E87.29
[2023-09-15] MEDS: lanolin oint 7 gm 1 APPLIC TOPICAL (16:22)
[2023-09-15 16:23] LABS: Blood Urea Nitrogen 28 mg/dL (8-23); Calcium 8.1 mg/dL (8.5-10.5); Carbon Dioxide 22 mmol/L (22-29); Chloride 100 mmol/L (98-107); Glomerular Filtration Rate 46.4 mL/min (90-130); Glucose 92 mg/dL (65-115); Osmolality Calculated 287 mOsm/kg (285-295); Sodium 136 mmol/L (136-145)
[2023-09-15 16:26] LABS: Anion Gap 18.8 (5-19); Potassium 4.8 mmol/L (3.5-5.1)
[2023-09-15] MEDS: atorvastatin 40 mg Tablet PO (17:34)
[2023-09-15 17:43] LABS: Glucose Point of Care 94 mg/dL (70-110)
[2023-09-15 18:12] LABS: Glucose Point of Care 91 mg/dL (70-110)
--- NOTE | 2023-09-15 18:13 | PC.NURSE ---
Shift summary: 1amp of D50 given this morning due to low blood sugar and altered mental status. BLood sugar improved, but minimal improvement in mental status at that time. Patient has slowly become more alert throughout the day. Initially he was very lethargic, difficult to stay awake for more than a few seconds, near end of shift patient is awake, alert, but disoriented. Getting agitated by Bipap and frequently taking bipap off. Total urine output for day shift 09/15/2023: 1925 mL
[2023-09-15] MEDS: budesonide 0.5 mg/2 mL Neb INHALATION (19:39)
[2023-09-15 21:11] LABS: Glucose Point of Care 114 mg/dL (70-110)
[2023-09-15 21:33] LABS: Vancomycin Trough 25.3 ug/mL (10-15)
[2023-09-15 23:56] LABS: Glucose Point of Care 162 mg/dL (70-110)
[2023-09-16] VITALS (26 sets, daily range): BP systolic 121–168; BP diastolic 53–112; PULSE 85–97; RESP 17–31; TEMP 36–36.9; O2SAT 90–98; BMI 40.3
[2023-09-16] MEDS: piperacillin-tazobactam 3.375 GM in sodium chloride 0.9% (plus) 50 ML IV ×3 (01:18→15:40)
[2023-09-16] MEDS: vancomycin 1,250 MG/250 ML PIGGYBACK 250 MG IV (01:19)
--- NOTE | 2023-09-16 02:01 | PC.NURSE ---
Pt adamant about not wearing Bipap. Becoming more confused throughout the night. Keeps calling out for is son and is mumbling nonsense. Explained to pt the importance of wearing Bipap and he said no, he was breathing fine without it, and swatted it away. Will continue to educate pt on importance of Bipap and try again.
[2023-09-16] MEDS: heparin 5,000 unit/mL INJ 1 mL 5000 UNIT SUBCUT ×2 (03:38→14:46)
[2023-09-16 03:52] LABS: ABG PCO2 48.6 mmHg (35-45); ABG PH Result 7.35 (7.35-7.45); Alveolar-Arterial Oxygen Gradi 2.9 mmHg (5-10); Arterial Blood Gas Hematocrit 33.2 % (42-52); Base Excess ABG 0.3 mmol/L (-2.0-2.0); Blood Gas Allen Test Pos; Blood Gas Operator Identificat JB; Blood Gas Sample Site Radial, right; Blood Gas Sample Type Arterial; Carboxyhemoglobin 1.6 %THgb (0.4-20.1); HCO3 ABG 26.5 mmol/L (22-26); HGB O2 Sat 92.2 % (95-100); Ionized Calcium Level - ABG 1.1 mmol/L (1.1-1.4); Methemoglobin < 0.0 % (0.4-1.5); Oxygen Device NC; Oxygen Saturation ABG 93.4; Total Hemoglobin 10.8 g/dL (14-18)
[2023-09-16 03:56] LABS: Glucose Point of Care 123 mg/dL (70-110)
[2023-09-16] MEDS: haloperidol inj 5 mg/mL INJ 1 mL 1 MG IVP (04:07)
[2023-09-16 05:35] LABS: Basophils # 0.1 10^3/uL (0.0-0.1); Basophils % 0.5 %; Eosinophils # 1.7 10^3/uL (0.0-0.8); Eosinophils % 16.7 %; Hematocrit 34.8 % (37-53); Lymphocytes # 0.6 10^3/uL (0.8-4.8); Lymphocytes % 5.4 %; Mean Corpuscular Volume 79.3 fl (82-101); Mean Platelet Volume 9.1 fL (7.4-10.4); Monocytes # 0.6 10^3/uL (0.2-0.9); Monocytes % 5.8 %; Neutrophils # 7.19 10^3/uL (1.8-7.7); Neutrophils % 70.9 %; Nucleated Red Blood Cells % 0 %; Platelet Count 224 10^3/cmm (157-399); Red Blood Count 4.39 10^6/uL (3.85-5.65); Red Cell Distribution Width 19.7 % (12.1-15.1); White Blood Count 10.15 10^3/uL (3.29-11.43)
[2023-09-16] MEDS: clopidogrel 75 mg Tablet PO (05:39)
[2023-09-16 05:51] LABS: Magnesium 2.1 mg/dL (1.7-2.3)
[2023-09-16 05:52] LABS: Alanine Aminotransferase 6 U/L (0-41); Albumin Level 2.8 g/dL (3.5-5.2); Alkaline Phosphatase 150 U/L (40-130); Aspartate Amino Transferase 12 U/L (0-40); Blood Urea Nitrogen 31 mg/dL (8-23); Calcium 8.2 mg/dL (8.5-10.5); Carbon Dioxide 26 mmol/L (22-29); Chloride 99 mmol/L (98-107); Creatinine Clr Calc Pharmacy 64.7681; Globulin 4.6 g/dL (1.3-4.6); Glomerular Filtration Rate 50.2 mL/min (90-130); Glucose 112 mg/dL (65-115); Osmolality Calculated 291 mOsm/kg (285-295); Sodium 137 mmol/L (136-145); Total Bilirubin 0.6 mg/dL (0.15-1.2); Total Protein 7.4 g/dL (6.6-8.7)
[2023-09-16 06:43] LABS: Glucose Point of Care 112 mg/dL (70-110)
[2023-09-16] MEDS: budesonide 0.5 mg/2 mL Neb INHALATION ×2 (07:40→19:52)
[2023-09-16] MEDS: ipratropium-albuterol 3 mL Neb INHALATION ×3 (07:40→19:52)
[2023-09-16 08:05] LABS: Glucose Point of Care 104 mg/dL (70-110)
[2023-09-16] MEDS: pantoprazole 40 mg SDV IVP (08:48)
[2023-09-16] MEDS: nystatin powder 15 gm Btl 1 APPLIC TOPICAL ×2 (08:50→17:34)
[2023-09-16] MEDS: aspirin 81 mg EC Tablet PO (08:57)
[2023-09-16 10:20] LABS: Glucose Point of Care 119 mg/dL (70-110)
--- NOTE | 2023-09-16 10:27 | PC.CHAP ---
Pastoral Care Encounter/Spiritual Assessment Type of Contact [] Declined broadloom weaver visit [] Patient/Family/Request visit [] Outpatient visit [] Follow-up visit [] Physician referral [] Code/Alert [x] Routine visit [] Staff referral [] Actively dying [] Patient sleeping [] Family support [] [] Out of room [] Palliative care [] [] Receiving care in room [] Pre-surgical visit [] Trauma [] Long length of stay [x] ICU visit [] Other: Relational/Emotional Strength [] Patient feels connected with others/family/visitors/staff [] Distress [] Loneliness/isolation [] Abandonment Spirituality of Patient [] Person of [place] [] Attends Restorationism of their [place] [] Believes in Prayer [] Reads Bible or Caodaism materials [] There are Spiritual issues to be addressed Bleacher Pulp Interventions [x] Prayer [] Active listening [] Non-anxious presence [] Spiritual/emotional support [] Crisis/trauma care [] Spiritual counseling [] Bereavement support [] Provided bereavement packet [] Provided Bible/devotional materials [] Provided toy/stuffed animal, coloring book to patient or family member [] Provided Communion [] Anointing/[place] [] Salvation [] Completed spiritual assessment [] Other: Impact on Illness or Injury [] Angry [] Fearful [] Anxious [] Often cries [] Exhaustion [] Unable to work [] Unable to attend catholic [] Unable to walk/stand [] Unable to read [] Unable to drive [] Unable to eat/drink [] Unable to sleep [] Unable to be with family [] Patient intubated [] Other: Summary some confusion but patient willing to rest and let staff address issues Time spent with patient
[2023-09-16] MEDS: neomycin-poly-bacitracin oint 28 gm 1 APPLIC TOPICAL ×2 (10:31→17:34)
[2023-09-16] MEDS: FUROsemide 10 mg/mL SDV 4mL 40 MG IVP ×2 (12:43→17:05)
--- NOTE | 2023-09-16 13:30 | P.PN_ITS ---
Subjective 2 Subjective: No acute events overnight. Today morning patient is more awake and alert. Able to have some conversation. Still drowsy. Good urine output in last 24 hours. Blood pressures improving. Did not tolerate BiPAP overnight. Currently on 3 L of oxygen supplementation. No further episodes of apnea noted today. Vitals/I&O/Wt Last Vital Signs Temp 97.8 F 09/16/23 10:00 Pulse 97 09/16/23 12:00 Resp 31 H 09/16/23 12:00 BP 168/77 09/16/23 10:00 Pulse Ox 92 09/16/23 12:00 O2 Del Method Nasal Cannula 09/16/23 07:30 O2 Flow Rate 3 09/16/23 07:30 FiO2 3 09/15/23 19:39 09/15/23 09/16/23 09/16/23 22:59 06:59 14:59 Intake Total 580 / 1030 540 / 1570 Output Total 1225 / 1925 3750 / 5675 Balance -645 / -895 -3210 / -4105 Weight last 48 hrs Weight 123.831 kg Weight 129.501 kg Physical Exam 2 Narrative: General: AO x 2-3, slow to respond, HEENT: Normocephalic, atraumatic, EOMI, Cardio: Regular rate rhythm, normal S1-S2, Respiratory: Clear to auscultation bilaterally, mild ronchi at bases GI: Abdomen soft, nontender, bowel sounds + Extremities: 2+ pitting edema bilaterally all the way up to groin. multiple skin lesions and skin abrasions neck folds have drainage foul smelling drainage. several pressure injuries b/l pedal edema Urinary Catheter Management: Barros: Cath Placed During This Visit: yes Reason for Continuing Indwelling Catheter: Accurate Measurement of Urinary Output in Critically Ill Patients Urinary Catheter Date of Insertion: 09/13/23 Urinary Catheter Time of Insertion: 14:25 Data 09/16/23 04:45 09/16/23 04:45 Micro: Microbiology 09/14/23 21:00 Gram Stain - Final Chest Wound Culture - Preliminary Coag positive Staphylococcus 09/15/23 19:36 Bacterial Antigens - Final Urine Kidney 09/15/23 19:36 Legionella Urinary Antigen - Final Unknown Source 09/13/23 14:23 Urine Culture - Final Urine,Clean Catch Proteus mirabilis esbl A&P Assessment and plan (1) Respiratory failure with hypercapnia: Currently patient is BiPAP dependent. Repeat ABG. Concerns for hypercapnia and respiratory acidosis. Most likely in setting of CHF exacerbation. Pneumonia ruled out on admission on CT chest. Oxygen supplementation keeping saturation over 88%. Patient does have a history of COPD. Pulmicort twice daily, DuoNebs every 6 hours. Continue BiPAP for now as patient tolerates. Will plan for intermittent BiPAP weaning. (2) Altered mental status: Most likely in setting of sepsis and hypercapnia leading to respiratory acidosis. Aspiration precaution, fall precaution. Continue to monitor. Episode of agitation for now. Will discontinue sitter for now. Check ammonia levels. Qualifiers: Altered mental status type: somnolence Qualified Code(s): R40.0 - Somnolence (3) Systolic congestive heart failure: Last echocardiogram from June showed an EF of 202% with global severe hypokinesia, moderate eccentric MR, mild TR. Strict input output charting, daily weights. Continue Barros catheterization. Fluid restriction to less than 1500 cc. IV Lasix 40 mg daily. Will plan for repeat Lasix depending on the hemodynamics and urine response to Lasix. Target 1 to 1.5 L negative in next 24 hours. (4) Sepsis: SIRS: Tachycardic, hypothermia, Leukocytosis on admission. Currently improving Source: Cellulitis, UTI End organ damage: Acute infectious encephalopathy, respiratory failure Patient did not receive full 30 mL/kg BW given concerns for congestive heart failure. Monitor blood pressures. Keep mean artery pressure 65 mmHg. Follow-up blood culture, urine culture. Check urine Legionella and bacterial antigen. Continue broad-spectrum antibiotics with vancomycin and Zosyn for now. Will de- escalate as per culture results. (5) Hypertensive emergency: Goal blood pressure less than 140/90 mmHg. Blood pressure slightly elevated. For now hold off on antihypertensive for maximal diuretic response. Will restart antihypertensives as per goal blood pressures. (6) Acute hyponatremia: Most likely hypervolemic hyponatremia. Continue to monitor. Repeat BMP in evening. (7) Urinary tract infection: Appreciate culture history. Patient has history of infection in the past from Enterococcus VRE, Staphylococcus, pansensitive E. coli. For now continue with broad-spectrum antibiotics. Continue with vancomycin and Zosyn for now. Qualifiers: Urinary tract infection type: acute pyelonephritis Qualified Code(s): N 10 - Acute pyelonephritis (8) Pressure injury of deep tissue of sacral region: History of chronic sacral osteomyelitis and decubitus ulcer. Appreciate surgical recommendations. No plan for debridement for now. (9) Sacral decubitus ulcer, stage IV: (10) Multiple sclerosis: (11) Respiratory acidosis: Plan CODE STATUS: Appreciate documentation. Documentation admission patient declined intubation. Patient does not want to be intubated or resuscitated though he is okay with the ICU admission, ACLS protocol medication and defibrillation if needed. Currently limited resuscitation. NPO. Protonix for PUD prophylaxis heparin 5000 every 12 hourly for DVT prophylaxis Discharge plan: Given multiple readmissions patient would benefit from SNF placement though patient has been declining on this on on previous admissions. Family is agreeable for home meds for now. Plan for the day: Continue with aggressive IV diuresis. Increase Lasix to 40 mg IV twice daily. Strict input output charting, daily weights. Fluid restriction to less than 1500 cc. Monitor electrolytes. Renal function so far stable. Patient's mentation improving. For now for aspiration precaution will continue to remain n.p.o. today. Will reanalyzed tomorrow and start diet appropriately. Blood pressures improving. Goal blood pressure less than 140/90 mmHg with mean over 65. Restart home dose of metoprolol for now. Will restart other home medications as per goal blood pressures. Urine culture growing ESBL Proteus. Continue with Zosyn. As patient has Barros catheter will plan to finish a 7-day course. Blood cultures so far negative. Discontinue vancomycin for now. Continue with ICU care. Patient continues to remain hemodynamically stable we will plan to transfer to [facility] in a.m. tomorrow. Attestations 2 Medical Necessity Statement*: Requires further hospitalization for management of altered mental status in setting of congestive heart failure, complicated UTI in a patient with history of multidrug-resistant infections in the past, sacral chronic decubitus ulcer and osteomyelitis Diagnoses Respiratory failure with hypercapnia J96.92 Altered mental status R40.0 Altered mental status type: somnolence Systolic congestive heart failure I50.20 Sepsis A41.9 Hypertensive emergency I16.1 Acute hyponatremia E87.1 Urinary tract infection N10 Urinary tract infection type: acute pyelonephritis Pressure injury of deep tissue of sacral region L89.156 Sacral decubitus ulcer, stage IV L89.154 Multiple sclerosis G35 Respiratory acidosis E87.29
[2023-09-16] MEDS: ALPRAZolam 0.5 mg Tablet PO (14:44)
[2023-09-16] MEDS: metoprolol succinate ER (24 HR) 25 mg Tablet PO (14:45)
[2023-09-16 15:44] LABS: Osmolality Serum 277 mOsm/kg (278-305)
[2023-09-16 15:44] LABS: Osmolality Urine 505 mOsm/kg (50-1200)
[2023-09-16 15:54] LABS: Glucose Point of Care 104 mg/dL (70-110)
[2023-09-16] MEDS: tamsulosin 0.4 mg Capsule PO (17:05)
[2023-09-16] MEDS: atorvastatin 40 mg Tablet PO (17:05)
[2023-09-16 19:04] LABS: Vancomycin Trough 31.3 ug/mL (10-15)
[2023-09-16 20:48] LABS: Glucose Point of Care 94 mg/dL (70-110)
[2023-09-16 22:30] LABS: Glucose Point of Care 85 mg/dL (70-110)
[2023-09-17] VITALS (27 sets, daily range): BP systolic 103–162; BP diastolic 64–93; PULSE 0–95; RESP 10–38; TEMP 36.6–37.1; O2SAT 86–97; BMI 38.7
[2023-09-17] MEDS: piperacillin-tazobactam 3.375 GM in sodium chloride 0.9% (plus) 50 ML IV ×4 (00:07→23:19)
[2023-09-17 02:12] LABS: Glucose Point of Care 126 mg/dL (70-110)
[2023-09-17] MEDS: heparin 5,000 unit/mL INJ 1 mL 5000 UNIT SUBCUT ×2 (03:57→15:05)
--- NOTE | 2023-09-17 04:09 | PC.NURSE ---
Patient is refusing to be on all monitoring, no cardiac telemetry, blood pressure, or pulse ox. Have educated patient multiple times tonight on the importance of being on the monitors because he is in the ICU and very sick but he is very adamant and tells me no and starts getting upset. Also refusing accu checks to monitor his blood sugar. Notified Dr. Jones of the patients non compliance. Will continue to educate patient.
[2023-09-17 04:44] LABS: Basophils # 0.1 10^3/uL (0.0-0.1); Basophils % 0.6 %; Eosinophils # 1.7 10^3/uL (0.0-0.8); Eosinophils % 20.9 %; Hematocrit 35.4 % (37-53); Lymphocytes # 0.8 10^3/uL (0.8-4.8); Lymphocytes % 9.2 %; Mean Corpuscular HGB Conc 29.1 g/dL (30-55); Mean Corpuscular Hemoglobin 22.6 pg (27-33); Mean Corpuscular Volume 77.6 fl (82-101); Mean Platelet Volume 9.9 fL (7.4-10.4); Monocytes # 0.7 10^3/uL (0.2-0.9); Monocytes % 8.1 %; Neutrophils # 4.98 10^3/uL (1.8-7.7); Neutrophils % 60.6 %; Nucleated Red Blood Cells % 0 %; Platelet Count 212 10^3/cmm (157-399); Red Blood Count 4.56 10^6/uL (3.85-5.65); Red Cell Distribution Width 19.9 % (12.1-15.1); White Blood Count 8.23 10^3/uL (3.29-11.43)
[2023-09-17 05:05] LABS: Alanine Aminotransferase < 5 U/L (0-41); Albumin Level 2.5 g/dL (3.5-5.2); Alkaline Phosphatase 130 U/L (40-130); Anion Gap 16.7 (5-19); Aspartate Amino Transferase 12 U/L (0-40); Blood Urea Nitrogen 29 mg/dL (8-23); Calcium 8.3 mg/dL (8.5-10.5); Carbon Dioxide 28 mmol/L (22-29); Chloride 97 mmol/L (98-107); Creatinine Clr Calc Pharmacy 64.7681; Globulin 4.7 g/dL (1.3-4.6); Glomerular Filtration Rate 50.2 mL/min (90-130); Glucose 106 mg/dL (65-115); Osmolality Calculated 292 mOsm/kg (285-295); Potassium 3.7 mmol/L (3.5-5.1); Sodium 138 mmol/L (136-145); Total Bilirubin 0.6 mg/dL (0.15-1.2); Total Protein 7.2 g/dL (6.6-8.7)
[2023-09-17 05:38] LABS: Magnesium 1.8 mg/dL (1.7-2.3)
[2023-09-17 07:44] LABS: Glucose Point of Care 109 mg/dL (70-110)
[2023-09-17] MEDS: clopidogrel 75 mg Tablet PO (07:49)
[2023-09-17 07:53] LABS: Glucose Point of Care 91 mg/dL (70-110)
[2023-09-17] MEDS: budesonide 0.5 mg/2 mL Neb INHALATION ×2 (07:54→20:43)
[2023-09-17] MEDS: ipratropium-albuterol 3 mL Neb INHALATION ×3 (07:54→20:43)
--- NOTE | 2023-09-17 08:10 | PC.NURSE ---
upon entering room for morning assessment, patient was agitated, raising voice at nurse saying he wants to leave. Patient had all monitoring pulled off, and had it removed for most of the night. Patient is confused, knows his name, , and the year, but thinks he is at a bank. Will not cooperate with a turn for assessment of backside, patient does have pressure injuries which cannot be observed because of this. After much convincing, patient agreed have monitoring replaced and to be repositioned, but he allowed such a slight reposition that it was likely ineffective at relieving pressure.
--- NOTE | 2023-09-17 09:26 | P.PN_ITS ---
Subjective 2 Subjective: Patient is more awake and alert today. Continues to have more conversation. Still slightly drowsy. Has been hemodynamically stable and afebrile. Good urine output. Vitals/I&O/Wt Last Vital Signs Temp 98.7 F 09/17/23 00:00 Pulse 89 09/17/23 07:56 Resp 17 09/17/23 07:40 BP 112/77 09/17/23 02:00 Pulse Ox 92 09/17/23 07:40 O2 Del Method Nasal Cannula 09/17/23 07:40 O2 Flow Rate 3 09/17/23 07:40 FiO2 3 09/15/23 19:39 09/16/23 09/17/23 09/17/23 22:59 06:59 14:59 Intake Total 50 / 100 50 / 150 Output Total 2950 / 4850 2600 / 7450 Balance -2900 / -4750 -2550 / -7300 Weight last 48 hrs Weight 118.977 kg Weight 123.831 kg Physical Exam 2 Narrative: General: AO x 2-3, slow to respond, HEENT: Normocephalic, atraumatic, EOMI, Cardio: Regular rate rhythm, normal S1-S2, Respiratory: Clear to auscultation bilaterally, mild ronchi at bases GI: Abdomen soft, nontender, bowel sounds + Extremities: 2+ pitting edema bilaterally all the way up to groin. multiple skin lesions and skin abrasions neck folds have drainage foul smelling drainage. several pressure injuries b/l pedal edema Skin: OTHER: Urinary Catheter Management: Barros: Cath Placed During This Visit: yes Reason for Continuing Indwelling Catheter: Accurate Measurement of Urinary Output in Critically Ill Patients Urinary Catheter Date of Insertion: 09/13/23 Urinary Catheter Time of Insertion: 14:25 Data 09/17/23 03:52 09/17/23 03:52 Micro: Microbiology 09/14/23 21:00 Gram Stain - Final Chest Wound Culture - Preliminary Coag positive Staphylococcus 09/15/23 19:36 Bacterial Antigens - Final Urine Kidney A&P Assessment and plan (1) Respiratory failure with hypercapnia: Currently patient is BiPAP dependent. Repeat ABG. Concerns for hypercapnia and respiratory acidosis. Most likely in setting of CHF exacerbation. Pneumonia ruled out on admission on CT chest. Oxygen supplementation keeping saturation over 88%. Patient does have a history of COPD. Pulmicort twice daily, DuoNebs every 6 hours. Continue BiPAP for now as patient tolerates. Will plan for intermittent BiPAP weaning. (2) Altered mental status: Most likely in setting of sepsis and hypercapnia leading to respiratory acidosis. Aspiration precaution, fall precaution. Continue to monitor. Episode of agitation for now. Will discontinue sitter for now. Check ammonia levels. Qualifiers: Altered mental status type: somnolence Qualified Code(s): R40.0 - Somnolence (3) Systolic congestive heart failure: Last echocardiogram from June showed an EF of 2024% with global severe hypokinesia, moderate eccentric MR, mild TR. Strict input output charting, daily weights. Continue Barros catheterization. Fluid restriction to less than 1500 cc. IV Lasix 40 mg daily. Will plan for repeat Lasix depending on the hemodynamics and urine response to Lasix. Target 1 to 1.5 L negative in next 24 hours. (4) Sepsis: SIRS: Tachycardic, hypothermia, Leukocytosis on admission. Currently improving Source: Cellulitis, UTI End organ damage: Acute infectious encephalopathy, respiratory failure Patient did not receive full 30 mL/kg BW given concerns for congestive heart failure. Monitor blood pressures. Keep mean artery pressure 65 mmHg. Follow-up blood culture, urine culture. Check urine Legionella and bacterial antigen. Continue broad-spectrum antibiotics with vancomycin and Zosyn for now. Will de- escalate as per culture results. (5) Hypertensive emergency: Goal blood pressure less than 140/90 mmHg. Blood pressure slightly elevated. For now hold off on antihypertensive for maximal diuretic response. Will restart antihypertensives as per goal blood pressures. (6) Acute hyponatremia: Most likely hypervolemic hyponatremia. Continue to monitor. Repeat BMP in evening. (7) Urinary tract infection: Appreciate culture history. Patient has history of infection in the past from Enterococcus VRE, Staphylococcus, pansensitive E. coli. For now continue with broad-spectrum antibiotics. Continue with vancomycin and Zosyn for now. Qualifiers: Urinary tract infection type: acute pyelonephritis Qualified Code(s): N 10 - Acute pyelonephritis (8) Pressure injury of deep tissue of sacral region: History of chronic sacral osteomyelitis and decubitus ulcer. Appreciate surgical recommendations. No plan for debridement for now. (9) Sacral decubitus ulcer, stage IV: (10) Multiple sclerosis: (11) Respiratory acidosis: Plan CODE STATUS: Appreciate documentation. Documentation admission patient declined intubation. Patient does not want to be intubated or resuscitated though he is okay with the ICU admission, ACLS protocol medication and defibrillation if needed. Currently limited resuscitation. NPO. Protonix for PUD prophylaxis heparin 5000 every 12 hourly for DVT prophylaxis Discharge plan: Given multiple readmissions patient would benefit from SNF placement though patient has been declining on this on on previous admissions. Family is agreeable for home meds for now. Plan for the day: Continue with aggressive IV diuresis. Continue with Lasix to 40 mg IV twice daily. Strict input output charting, daily weights. Fluid restriction to less than 1500 cc. So far around 12 L negative. Monitor electrolytes. Renal function so far stable. Repeat BMP in evening. Mentation improving. Start on mechanical soft diet. Blood pressure still slightly elevated. Continue with home dose of metoprolol. Add low-dose amlodipine. Holding off on hydralazine given possibility of drug- induced eruptions. Continue with Zosyn for ESBL Proteus infection for overall 7 days. Chest wound growing MRSA. Will restart vancomycin. Last Vanco trough on 09/15 found to be 31. Blood cultures so far negative. Rash so far not improving. Add fluconazole 100 mg oral daily along with clotrimazole twice daily. Check ESR, CRP. Patient continues to remain hemodynamically stable we will plan to transfer to [facility] in a.m. tomorrow. Attestations 2 Medical Necessity Statement*: Requires further hospitalization for management of generalized anasarca in setting of congestive heart failure, acute encephalopathy in setting of hypercapnia, improving hyponatremia Diagnoses Respiratory failure with hypercapnia J96.92 Altered mental status R40.0 Altered mental status type: somnolence Systolic congestive heart failure I50.20 Sepsis A41.9 Hypertensive emergency I16.1 Acute hyponatremia E87.1 Urinary tract infection N10 Urinary tract infection type: acute pyelonephritis Pressure injury of deep tissue of sacral region L89.156 Sacral decubitus ulcer, stage IV L89.154 Multiple sclerosis G35 Respiratory acidosis E87.29
[2023-09-17] MEDS: FUROsemide 10 mg/mL SDV 4mL 40 MG IVP ×2 (09:54→17:47)
[2023-09-17] MEDS: neomycin-poly-bacitracin oint 28 gm 1 APPLIC TOPICAL ×2 (09:54→18:07)
[2023-09-17] MEDS: pantoprazole 40 mg SDV IVP (09:54)
[2023-09-17] MEDS: metoprolol succinate ER (24 HR) 25 mg Tablet PO (09:54)
[2023-09-17] MEDS: nystatin powder 15 gm Btl 1 APPLIC TOPICAL ×2 (09:54→18:07)
[2023-09-17] MEDS: aspirin 81 mg EC Tablet PO (09:54)
[2023-09-17] MEDS: fluconazole 100 mg Tablet PO (09:54)
--- NOTE | 2023-09-17 11:18 | PC.SOCIAL ---
IMM Update Pg. 2 of IMM updated. Copy provided.
[2023-09-17 14:37] LABS: Erythrocyte Sedimentation Rate 65 mm/hr (0-10)
[2023-09-17 14:43] LABS: C Reactive Protein 127.1 mg/L (0.0-4.9)
[2023-09-17] MEDS: amlodipine 5 mg Tablet PO (15:06)
[2023-09-17 16:08] LABS: Anion Gap 15.5 (5-19); Blood Urea Nitrogen 28 mg/dL (8-23); Calcium 8.2 mg/dL (8.5-10.5); Carbon Dioxide 27 mmol/L (22-29); Chloride 95 mmol/L (98-107); Glomerular Filtration Rate 46.4 mL/min (90-130); Glucose 169 mg/dL (65-115); Osmolality Calculated 287 mOsm/kg (285-295); Potassium 3.5 mmol/L (3.5-5.1); Sodium 134 mmol/L (136-145)
[2023-09-17 16:50] LABS: Glucose Point of Care 174 mg/dL (70-110)
[2023-09-17] MEDS: tamsulosin 0.4 mg Capsule PO (17:47)
[2023-09-17] MEDS: atorvastatin 40 mg Tablet PO (17:47)
[2023-09-17] MEDS: clotrimazole 1% cream 30 gm 1 APPLIC TOPICAL (18:06)
[2023-09-17 18:23] LABS: Glucose Point of Care 189 mg/dL (70-110)
--- NOTE | 2023-09-17 18:42 | PC.NURSE ---
Shift SUmmary: THough uncooperative and agitated at begining of shift, patient has become much more cooperative thgouhout the day, but still refuses bipap. Oriented to person and time. Has started on a diet and tolerates it well, eating 100% of meals. Started on 1500mL fluid restriction. Rash appears to have improved some. Total urine output: 3050mL.
--- NOTE | 2023-09-17 20:35 | PC.NURSE ---
Report called to Todd LÓPEZ on Medsurg and transported to room 252-2.
[2023-09-17 21:40] LABS: Glucose Point of Care 137 mg/dL (70-110)
[2023-09-17 23:07] LABS: Glucose Point of Care 127 mg/dL (70-110)
[2023-09-18] VITALS (10 sets, daily range): BP systolic 122–145; BP diastolic 68–86; PULSE 68–86; RESP 15–20; TEMP 36.6–37; O2SAT 90–98
[2023-09-18 02:21] LABS: Glucose Point of Care 115 mg/dL (70-110)
[2023-09-18] MEDS: heparin 5,000 unit/mL INJ 1 mL 5000 UNIT SUBCUT ×2 (03:48→17:41)
[2023-09-18 04:19] LABS: Basophils # 0.1 10^3/uL (0.0-0.1); Basophils % 0.8 %; Eosinophils # 1.8 10^3/uL (0.0-0.8); Eosinophils % 19.3 %; Lymphocytes # 0.9 10^3/uL (0.8-4.8); Lymphocytes % 9.5 %; Mean Corpuscular HGB Conc 29.7 g/dL (30-55); Mean Corpuscular Hemoglobin 23.1 pg (27-33); Mean Corpuscular Volume 77.6 fl (82-101); Mean Platelet Volume 9.4 fL (7.4-10.4); Monocytes # 0.7 10^3/uL (0.2-0.9); Monocytes % 7.4 %; Neutrophils # 5.72 10^3/uL (1.8-7.7); Nucleated Red Blood Cells % 0 %; Platelet Count 204 10^3/cmm (157-399); Red Blood Count 4.64 10^6/uL (3.85-5.65); Red Cell Distribution Width 20.2 % (12.1-15.1); White Blood Count 9.22 10^3/uL (3.29-11.43)
[2023-09-18 04:42] LABS: Vancomycin Trough 20.3 ug/mL (10-15)
[2023-09-18 04:43] LABS: Alanine Aminotransferase < 5 U/L (0-41); Albumin Level 2.4 g/dL (3.5-5.2); Alkaline Phosphatase 113 U/L (40-130); Anion Gap 14.1 (5-19); Aspartate Amino Transferase 8 U/L (0-40); Blood Urea Nitrogen 27 mg/dL (8-23); Calcium 8.1 mg/dL (8.5-10.5); Carbon Dioxide 29 mmol/L (22-29); Chloride 94 mmol/L (98-107); Globulin 4.7 g/dL (1.3-4.6); Glomerular Filtration Rate 46.4 mL/min (90-130); Glucose 119 mg/dL (65-115); Magnesium 1.6 mg/dL (1.7-2.3); Osmolality Calculated 284 mOsm/kg (285-295); Potassium 3.1 mmol/L (3.5-5.1); Sodium 134 mmol/L (136-145); Total Bilirubin 0.6 mg/dL (0.15-1.2); Total Protein 7.1 g/dL (6.6-8.7)
[2023-09-18] MEDS: clopidogrel 75 mg Tablet PO (05:08)
[2023-09-18 06:10] LABS: Glucose Point of Care 116 mg/dL (70-110)
[2023-09-18] MEDS: ipratropium-albuterol 3 mL Neb INHALATION (07:41)
[2023-09-18] MEDS: budesonide 0.5 mg/2 mL Neb INHALATION (07:41)
[2023-09-18] MEDS: vancomycin 1,000 MG in sodium chloride 0.9% 250 ML 250 MG IV (09:01)
[2023-09-18] MEDS: piperacillin-tazobactam 3.375 GM in sodium chloride 0.9% (plus) 50 ML IV ×3 (09:01→23:42)
[2023-09-18] MEDS: amlodipine 5 mg Tablet PO (09:02)
[2023-09-18] MEDS: metoprolol succinate ER (24 HR) 25 mg Tablet PO (09:02)
[2023-09-18] MEDS: fluconazole 100 mg Tablet PO (09:02)
[2023-09-18] MEDS: aspirin 81 mg EC Tablet PO (09:02)
[2023-09-18] MEDS: nystatin powder 15 gm Btl 1 APPLIC TOPICAL ×2 (09:18→17:42)
[2023-09-18] MEDS: neomycin-poly-bacitracin oint 28 gm 1 APPLIC TOPICAL ×2 (09:21→17:42)
[2023-09-18] MEDS: clotrimazole 1% cream 30 gm 1 APPLIC TOPICAL ×2 (09:21→17:42)
[2023-09-18] MEDS: pantoprazole 40 mg SDV IVP (09:27)
[2023-09-18] MEDS: FUROsemide 10 mg/mL SDV 4mL 40 MG IVP ×2 (09:28→17:41)
[2023-09-18 11:13] LABS: Glucose Point of Care 182 mg/dL (70-110)
[2023-09-18] MEDS: magnesium sulfate premix 2 GM/50 ML PIGGYBACK IV (11:29)
[2023-09-18] MEDS: potassium chloride ER 20 mEq Tablet 80 MEQ PO (11:30)
--- NOTE | 2023-09-18 13:16 | P.PN_ITS ---
Subjective 2 Subjective: No acute events overnight. Today morning on examination patient is more awake and alert and able to have conversation. Asking when can he go home. Discussed about safe discharge planning. He is adamant about going home. Denies any nausea, vomiting, headache. Appreciate urine output. Vitals/I&O/Wt Last Vital Signs Temp 98.3 F 09/18/23 11:17 Pulse 79 09/18/23 11:17 Resp 16 09/18/23 11:17 BP 129/75 09/18/23 11:17 Pulse Ox 97 09/18/23 11:17 O2 Del Method Nasal Cannula 09/18/23 11:17 O2 Flow Rate 3 09/18/23 08:00 FiO2 3 09/15/23 19:39 09/17/23 09/18/23 09/18/23 22:59 06:59 14:59 Intake Total 350 / 1300 290 / 1590 1790 / 1790 Output Total 2650 / 4050 1000 / 5050 1800 / 1800 Balance -2300 / -2750 -710 / -3460 -10 / -10 Weight last 48 hrs Weight 124.42 kg Weight 118.977 kg Physical Exam 2 Narrative: General: AO x 2-3, slow to respond, HEENT: Normocephalic, atraumatic, EOMI, Cardio: Regular rate rhythm, normal S1-S2, Respiratory: Clear to auscultation bilaterally, mild ronchi at bases GI: Abdomen soft, nontender, bowel sounds + Extremities: 2+ pitting edema bilaterally all the way up to groin. multiple skin lesions and skin abrasions neck folds have drainage foul smelling drainage. several pressure injuries b/l pedal edema Skin: OTHER: Urinary Catheter Management: Barros: Cath Placed During This Visit: yes Reason for Continuing Indwelling Catheter: Other Urinary Catheter Date of Insertion: 09/13/23 Urinary Catheter Time of Insertion: 14:25 Data 09/18/23 04:11 09/18/23 04:11 Micro: Microbiology 09/14/23 21:00 Gram Stain - Final Chest Wound Culture - Final Methicillin Resis Staph Aureus A&P Assessment and plan (1) Respiratory failure with hypercapnia: Currently patient is BiPAP dependent. Repeat ABG. Concerns for hypercapnia and respiratory acidosis. Most likely in setting of CHF exacerbation. Pneumonia ruled out on admission on CT chest. Oxygen supplementation keeping saturation over 88%. Patient does have a history of COPD. Pulmicort twice daily, DuoNebs every 6 hours. Continue BiPAP for now as patient tolerates. Will plan for intermittent BiPAP weaning. (2) Altered mental status: Most likely in setting of sepsis and hypercapnia leading to respiratory acidosis. Aspiration precaution, fall precaution. Continue to monitor. Episode of agitation for now. Will discontinue sitter for now. Check ammonia levels. Qualifiers: Altered mental status type: somnolence Qualified Code(s): R40.0 - Somnolence (3) Systolic congestive heart failure: Last echocardiogram from June showed an EF of 2024% with global severe hypokinesia, moderate eccentric MR, mild TR. Strict input output charting, daily weights. Continue Barros catheterization. Fluid restriction to less than 1500 cc. IV Lasix 40 mg daily. Will plan for repeat Lasix depending on the hemodynamics and urine response to Lasix. Target 1 to 1.5 L negative in next 24 hours. (4) Sepsis: SIRS: Tachycardic, hypothermia, Leukocytosis on admission. Currently improving Source: Cellulitis, UTI End organ damage: Acute infectious encephalopathy, respiratory failure Patient did not receive full 30 mL/kg BW given concerns for congestive heart failure. Monitor blood pressures. Keep mean artery pressure 65 mmHg. Follow-up blood culture, urine culture. Check urine Legionella and bacterial antigen. Continue broad-spectrum antibiotics with vancomycin and Zosyn for now. Will de- escalate as per culture results. (5) Hypertensive emergency: Goal blood pressure less than 140/90 mmHg. Blood pressure slightly elevated. For now hold off on antihypertensive for maximal diuretic response. Will restart antihypertensives as per goal blood pressures. (6) Acute hyponatremia: Most likely hypervolemic hyponatremia. Continue to monitor. Repeat BMP in evening. (7) Urinary tract infection: Appreciate culture history. Patient has history of infection in the past from Enterococcus VRE, Staphylococcus, pansensitive E. coli. For now continue with broad-spectrum antibiotics. Continue with vancomycin and Zosyn for now. Qualifiers: Urinary tract infection type: acute pyelonephritis Qualified Code(s): N 10 - Acute pyelonephritis (8) Pressure injury of deep tissue of sacral region: History of chronic sacral osteomyelitis and decubitus ulcer. Appreciate surgical recommendations. No plan for debridement for now. (9) Sacral decubitus ulcer, stage IV: (10) Multiple sclerosis: (11) Respiratory acidosis: Plan CODE STATUS: Appreciate documentation. Documentation admission patient declined intubation. Patient does not want to be intubated or resuscitated though he is okay with the ICU admission, ACLS protocol medication and defibrillation if needed. Currently limited resuscitation. NPO. Protonix for PUD prophylaxis heparin 5000 every 12 hourly for DVT prophylaxis Discharge plan: Given multiple readmissions patient would benefit from SNF placement though patient has been declining on this on on previous admissions. Family is agreeable for home meds for now. Plan for the day: Continue with Lasix 40 mg IV twice daily. Blood pressure is better controlled. Continue with amlodipine 5 mg oral daily, metoprolol 25 mg daily. Continue with IV Zosyn to finish off a 5 to 7-day course of antibiotics. Continue with vancomycin. Recheck Vanco random level in AM. Replace potassium with 80 mEq and magnesium 2 g IV. Repeat BMP in evening. Continue with oral fluconazole to finish a 7-day course. Discharge plan: Patient would do better at SNF though he adamantly is refusing. Plan to discharge back home with home health versus SNF once patient is more diuresed most likely on IV antibiotics. Attestations 2 Medical Necessity Statement*: Requires further hospitalization for management of fluid overload, anasarca in a patient with history of congestive heart failure leading to hypercapnic respiratory failure Diagnoses Respiratory failure with hypercapnia J96.92 Altered mental status R40.0 Altered mental status type: somnolence Systolic congestive heart failure I50.20 Sepsis A41.9 Hypertensive emergency I16.1 Acute hyponatremia E87.1 Urinary tract infection N10 Urinary tract infection type: acute pyelonephritis Pressure injury of deep tissue of sacral region L89.156 Sacral decubitus ulcer, stage IV L89.154 Multiple sclerosis G35 Respiratory acidosis E87.29
[2023-09-18 16:13] LABS: Anion Gap 11.7 (5-19); Blood Urea Nitrogen 25 mg/dL (8-23); Calcium 8.3 mg/dL (8.5-10.5); Carbon Dioxide 32 mmol/L (22-29); Chloride 97 mmol/L (98-107); Creatinine Clr Calc Pharmacy 50.5042; Glomerular Filtration Rate 37.6 mL/min (90-130); Glucose 139 mg/dL (65-115); Osmolality Calculated 291 mOsm/kg (285-295); Potassium 3.7 mmol/L (3.5-5.1); Sodium 137 mmol/L (136-145)
[2023-09-18 16:48] LABS: Glucose Point of Care 141 mg/dL (70-110)
[2023-09-18] MEDS: tamsulosin 0.4 mg Capsule PO (17:41)
[2023-09-18] MEDS: atorvastatin 40 mg Tablet PO (17:41)
[2023-09-18 20:02] LABS: Glucose Point of Care 134 mg/dL (70-110)
[2023-09-19] VITALS: BP 130/56; PULSE 80; RESP 19; TEMP 36.9; O2SAT 93
[2023-09-19 00:04] LABS: Glucose Point of Care 129 mg/dL (70-110)
[2023-09-19] MEDS: heparin 5,000 unit/mL INJ 1 mL 5000 UNIT SUBCUT ×2 (03:17→15:33)
[2023-09-19 03:38] LABS: Glucose Point of Care 131 mg/dL (70-110)
[2023-09-19 04:00] VITALS: BP 131/73; PULSE 89; RESP 21; TEMP 37; O2SAT 90
[2023-09-19] MEDS: clopidogrel 75 mg Tablet PO (05:39)
[2023-09-19 05:45] LABS: Basophils # 0.1 10^3/uL (0.0-0.1); Basophils % 0.6 %; Eosinophils # 2.7 10^3/uL (0.0-0.8); Eosinophils % 23.7 %; Hematocrit 37.2 % (37-53); Lymphocytes # 1.1 10^3/uL (0.8-4.8); Lymphocytes % 9.3 %; Mean Corpuscular HGB Conc 29.8 g/dL (30-55); Mean Corpuscular Hemoglobin 22.9 pg (27-33); Mean Corpuscular Volume 76.9 fl (82-101); Mean Platelet Volume 10.2 fL (7.4-10.4); Monocytes # 0.7 10^3/uL (0.2-0.9); Monocytes % 5.8 %; Neutrophils # 6.76 10^3/uL (1.8-7.7); Nucleated Red Blood Cells % 0.2 %; Platelet Count 241 10^3/cmm (157-399); Red Blood Count 4.84 10^6/uL (3.85-5.65); Red Cell Distribution Width 20.7 % (12.1-15.1); White Blood Count 11.47 10^3/uL (3.29-11.43)
[2023-09-19 06:06] LABS: Glucose Point of Care 108 mg/dL (70-110)
[2023-09-19 06:11] LABS: Vancomycin Random 21.7 ug/mL (20.0-40.0)
[2023-09-19 06:13] LABS: Alanine Aminotransferase < 5 U/L (0-41); Albumin Level 2.7 g/dL (3.5-5.2); Alkaline Phosphatase 115 U/L (40-130); Anion Gap 15.8 (5-19); Aspartate Amino Transferase 10 U/L (0-40); Blood Urea Nitrogen 29 mg/dL (8-23); Calcium 8.2 mg/dL (8.5-10.5); Carbon Dioxide 32 mmol/L (22-29); Chloride 96 mmol/L (98-107); Globulin 4.4 g/dL (1.3-4.6); Glomerular Filtration Rate 37.6 mL/min (90-130); Glucose 108 mg/dL (65-115); Osmolality Calculated 296 mOsm/kg (285-295); Potassium 3.8 mmol/L (3.5-5.1); Sodium 140 mmol/L (136-145); Total Bilirubin 0.7 mg/dL (0.15-1.2); Total Protein 7.1 g/dL (6.6-8.7)
[2023-09-19 06:14] LABS: Creatinine Clr Calc Pharmacy 50.5042
[2023-09-19 07:42] VITALS: BP 129/83; PULSE 77; RESP 15; TEMP 36.6; O2SAT 90
--- NOTE | 2023-09-19 08:25 | P.PN_ITS ---
Subjective 2 Subjective: This a 68-year-old male who is admitted with sepsis and who has history of multiple pressure ulcers and was noted to have multiple skin excoriation as well as bilateral lower extremity and scrotal edema. Patient is doing much better, mental status has significantly improved and he is mostly concerned about going home. Responding well to diuresis as well as to IV antibiotics. Vitals/I&O/Wt Last Vital Signs Temp 97.8 F 09/19/23 07:42 Pulse 77 09/19/23 07:42 Resp 15 09/19/23 07:42 BP 129/83 09/19/23 07:42 Pulse Ox 90 09/19/23 07:42 O2 Del Method Nasal Cannula 09/19/23 07:42 O2 Flow Rate 3 09/19/23 04:00 FiO2 3 09/15/23 19:39 09/18/23 09/19/23 09/19/23 22:59 06:59 14:59 Intake Total 650 / 2440 910 / 3350 Output Total 3000 / 4800 2100 / 6900 Balance -2350 / -2360 -1190 / -3550 Weight last 48 hrs Weight 261 lb 11.2 oz Weight 274 lb 4.8 oz Physical Exam 2 Narrative: Patient has multiple upper chest and neck wounds with a scab formation, none of these wounds are amenable for debridement unsure about the etiology may be due to insect bite versus picking. Sacral wound is epithelialized there is only a small thoracic at the level of the sacrum, no debridement is necessary. Bilateral lower extremity edema is improving but is still present there is still some areas of erythema on bilateral lower extremities. Scrotal edema has also significantly improved Urinary Catheter Management: Barros: Cath Placed During This Visit: yes Reason for Continuing Indwelling Catheter: Acute Urinary Retention or Obstruction Urinary Catheter Date of Insertion: 09/13/23 Urinary Catheter Time of Insertion: 14:25 Data 09/19/23 05:13 09/19/23 05:13 Micro: Microbiology 09/13/23 13:58 Blood Culture - Final Blood NO GROWTH AFTER 5 DAYS 09/13/23 13:56 Blood Culture - Final Blood NO GROWTH AFTER 5 DAYS A&P Assessment and plan (1) Bilateral cellulitis of lower leg: Plan Patient showing good progression, mental status has recovered. Responding well to antibiotics. Patient has multiple upper chest and neck wounds with a scab formation, none of these wounds are amenable for debridement unsure about the etiology may be due to insect bite versus picking. Local hygiene with soap and water will be appropriate for these wounds Sacral wound is epithelialized there is only a small thoracic at the level of the sacrum, no debridement is necessary. A protective dressing can be consider to prevent additional excoriation and new formation of pressure ulcer at this level Bilateral lower extremity edema is improving but is still present there is still some areas of erythema on bilateral lower extremities. The edema is pitting, no significant skin necrosis or skin wounds at this level. No drainable fluid collections. Scrotal edema has also significantly improved. Patient will benefit from continuous diuresis as well as mobilization and like evaluation to improve the symptoms. No additional surgical intervention is indicated at this time, general surgery will sign off, please reconsult as needed Of note, patient main concern at this moment is going home. Attestations 2 Medical Necessity Statement*: Per medical team Coding Level of Care Code 19237 Diagnoses Bilateral cellulitis of lower leg L03.116; L03.115
[2023-09-19] MEDS: piperacillin-tazobactam 3.375 GM in sodium chloride 0.9% (plus) 50 ML IV ×3 (08:31→23:36)
[2023-09-19] MEDS: fluconazole 100 mg Tablet PO (08:33)
[2023-09-19] MEDS: aspirin 81 mg EC Tablet PO (08:33)
[2023-09-19] MEDS: metoprolol succinate ER (24 HR) 25 mg Tablet PO (08:33)
[2023-09-19] MEDS: amlodipine 5 mg Tablet PO (08:33)
[2023-09-19 08:34] VITALS: PULSE 80; RESP 18; O2SAT 91
[2023-09-19] MEDS: nystatin powder 15 gm Btl 1 APPLIC TOPICAL ×2 (08:35→17:58)
[2023-09-19] MEDS: neomycin-poly-bacitracin oint 28 gm 1 APPLIC TOPICAL ×2 (08:35→17:58)
[2023-09-19] MEDS: clotrimazole 1% cream 30 gm 1 APPLIC TOPICAL ×2 (08:35→17:58)
--- NOTE | 2023-09-19 09:20 | PC.SOCIAL ---
IMM Update pg 2 of IMM updated and reviewed w/ patient. Copy provided and copy dated, initialed and placed in chart.
[2023-09-19] MEDS: FUROsemide 10 mg/mL SDV 4mL 40 MG IVP (10:43)
[2023-09-19] MEDS: pantoprazole 40 mg SDV IVP (10:43)
[2023-09-19 11:41] LABS: Glucose Point of Care 133 mg/dL (70-110)
[2023-09-19 11:48] VITALS: BP 134/76; PULSE 80; RESP 15; TEMP 36.7; O2SAT 99
--- NOTE | 2023-09-19 12:58 | P.PN_ITS ---
Subjective 2 Subjective: No acute events overnight. Patient has remained hemodynamically stable and afebrile. Today morning patient back to his baseline mentation. Patient has been refusing on and off medications. Denies any nausea, vomiting, headache. Asking when can he go back home. He seems to be in denial of most of his complaints. Does not think that he has any penile or scrotal edema. He states he has never been diabetic. We discussed that his A1c has been elevated since 2019. Denies any chest pain. Has remained hemodynamically stable and afebrile. Urine output charted appreciated. Vitals/I&O/Wt Last Vital Signs Temp 98.0 F 09/19/23 11:48 Pulse 80 09/19/23 11:48 Resp 15 09/19/23 11:48 BP 134/76 09/19/23 11:48 Pulse Ox 99 09/19/23 11:48 O2 Del Method Nasal Cannula 09/19/23 11:48 O2 Flow Rate 3 09/19/23 08:34 FiO2 3 09/15/23 19:39 09/18/23 09/19/23 09/19/23 22:59 06:59 14:59 Intake Total 650 / 2440 910 / 3350 600 / 600 Output Total 3000 / 4800 2100 / 6900 2250 / 2250 Balance -2350 / -2360 -1190 / -3550 -1650 / -1650 Weight last 48 hrs Weight 118.705 kg Weight 124.42 kg Physical Exam 2 Narrative: General: AO x 2-3, slow to respond, HEENT: Normocephalic, atraumatic, EOMI, Cardio: Regular rate rhythm, normal S1-S2, Respiratory: Clear to auscultation bilaterally, mild ronchi at bases GI: Abdomen soft, nontender, bowel sounds + Extremities: 2+ pitting edema bilaterally all the way up to groin. multiple skin lesions and skin abrasions neck folds have drainage foul smelling drainage. several pressure injuries b/l pedal edema Skin: OTHER: Urinary Catheter Management: Barros: Cath Placed During This Visit: yes Reason for Continuing Indwelling Catheter: Acute Urinary Retention or Obstruction Urinary Catheter Date of Insertion: 09/13/23 Urinary Catheter Time of Insertion: 14:25 Data 09/19/23 05:13 09/19/23 05:13 Micro: Microbiology 09/13/23 13:58 Blood Culture - Final Blood NO GROWTH AFTER 5 DAYS 09/13/23 13:56 Blood Culture - Final Blood NO GROWTH AFTER 5 DAYS A&P Assessment and plan (1) Respiratory failure with hypercapnia: Currently patient is BiPAP dependent. Repeat ABG. Concerns for hypercapnia and respiratory acidosis. Most likely in setting of CHF exacerbation. Pneumonia ruled out on admission on CT chest. Oxygen supplementation keeping saturation over 88%. Patient does have a history of COPD. Pulmicort twice daily, DuoNebs every 6 hours. Continue BiPAP for now as patient tolerates. Will plan for intermittent BiPAP weaning. (2) Altered mental status: Most likely in setting of sepsis and hypercapnia leading to respiratory acidosis. Aspiration precaution, fall precaution. Continue to monitor. Episode of agitation for now. Will discontinue sitter for now. Check ammonia levels. Qualifiers: Altered mental status type: somnolence Qualified Code(s): R40.0 - Somnolence (3) Systolic congestive heart failure: Last echocardiogram from June showed an EF of 2024% with global severe hypokinesia, moderate eccentric MR, mild TR. Strict input output charting, daily weights. Continue Barros catheterization. Fluid restriction to less than 1500 cc. IV Lasix 40 mg daily. Will plan for repeat Lasix depending on the hemodynamics and urine response to Lasix. Target 1 to 1.5 L negative in next 24 hours. (4) Sepsis: SIRS: Tachycardic, hypothermia, Leukocytosis on admission. Currently improving Source: Cellulitis, UTI End organ damage: Acute infectious encephalopathy, respiratory failure Patient did not receive full 30 mL/kg BW given concerns for congestive heart failure. Monitor blood pressures. Keep mean artery pressure 65 mmHg. Follow-up blood culture, urine culture. Check urine Legionella and bacterial antigen. Continue broad-spectrum antibiotics with vancomycin and Zosyn for now. Will de- escalate as per culture results. (5) Hypertensive emergency: Goal blood pressure less than 140/90 mmHg. Blood pressure slightly elevated. For now hold off on antihypertensive for maximal diuretic response. Will restart antihypertensives as per goal blood pressures. (6) Acute hyponatremia: Most likely hypervolemic hyponatremia. Continue to monitor. Repeat BMP in evening. (7) Urinary tract infection: Appreciate culture history. Patient has history of infection in the past from Enterococcus VRE, Staphylococcus, pansensitive E. coli. For now continue with broad-spectrum antibiotics. Continue with vancomycin and Zosyn for now. Qualifiers: Urinary tract infection type: acute pyelonephritis Qualified Code(s): N 10 - Acute pyelonephritis (8) Pressure injury of deep tissue of sacral region: History of chronic sacral osteomyelitis and decubitus ulcer. Appreciate surgical recommendations. No plan for debridement for now. (9) Sacral decubitus ulcer, stage IV: (10) Multiple sclerosis: (11) Respiratory acidosis: Plan CODE STATUS: Appreciate documentation. Documentation admission patient declined intubation. Patient does not want to be intubated or resuscitated though he is okay with the ICU admission, ACLS protocol medication and defibrillation if needed. Currently limited resuscitation. NPO. Protonix for PUD prophylaxis heparin 5000 every 12 hourly for DVT prophylaxis Discharge plan: Given multiple readmissions patient would benefit from SNF placement though patient has been declining on this on on previous admissions. Family is agreeable for home meds for now. Plan for the day: Patient's creatinine elevated up to 1.8. Stable since yesterday afternoon. Appreciate electrolytes. Patient has diuresed aggressively. Seems to be around 20 L negative. Switch to oral Lasix 40 mg twice daily. Add acetazolamide 500 mg oral daily as patient if developing mild contraction alkalosis. Continue with IV vancomycin and Zosyn to finish a 7-day course. Last dose of antibiotics on 09/19. Appreciate Vanco random levels. Continue with oral fluconazole. Repeat magnesium level. Replete 1 mg IV magnesium. Goal blood pressure less than 140/90 mmHg. Patient's blood pressure has remained stable. Continue with amlodipine 5 mg oral daily. Will add low-dose metoprolol. Speech therapy and advance diet accordingly. Discharge plan: Patient would do better at SNF though he adamantly is refusing. Plan to discharge back home with home health versus SNF once patient is more diuresed most likely on IV antibiotics. Attestations 2 Medical Necessity Statement*: Requires further hospitalization for management of SUSHILA, contraction alkalosis in a patient who was admitted with congestive heart failure leading to hypercapnic respiratory failure and altered mental status requiring aggressive IV diuresis, Proteus ESBL UTI Diagnoses Respiratory failure with hypercapnia J96.92 Altered mental status R40.0 Altered mental status type: somnolence Systolic congestive heart failure I50.20 Sepsis A41.9 Hypertensive emergency I16.1 Acute hyponatremia E87.1 Urinary tract infection N10 Urinary tract infection type: acute pyelonephritis Pressure injury of deep tissue of sacral region L89.156 Sacral decubitus ulcer, stage IV L89.154 Multiple sclerosis G35 Respiratory acidosis E87.29
[2023-09-19] MEDS: acetaZOLAMIDE 250 mg Tablet 500 MG PO (13:17)
[2023-09-19] MEDS: magnesium sulfate premix 1 GM/100 ML PIGGYBACK IV (13:17)
[2023-09-19 13:48] LABS: Magnesium 1.8 mg/dL (1.7-2.3)
[2023-09-19 13:49] LABS: Anion Gap 12.8 (5-19); Blood Urea Nitrogen 32 mg/dL (8-23); Calcium 8.2 mg/dL (8.5-10.5); Carbon Dioxide 33 mmol/L (22-29); Chloride 96 mmol/L (98-107); Glomerular Filtration Rate 46.4 mL/min (90-130); Glucose 145 mg/dL (65-115); Osmolality Calculated 295 mOsm/kg (285-295); Potassium 3.8 mmol/L (3.5-5.1); Sodium 138 mmol/L (136-145)
[2023-09-19] MEDS: FUROsemide 40 mg Tablet PO (15:33)
--- NOTE | 2023-09-19 17:33 | PC.NURSE ---
Accu-Check Refusal: SEPARATOR TENDER attempted to get accu-check on pt. Pt refused. Dr. Pace notified.
[2023-09-19] MEDS: atorvastatin 40 mg Tablet PO (17:57)
[2023-09-19] MEDS: tamsulosin 0.4 mg Capsule PO (17:57)
--- NOTE | 2023-09-19 18:37 | PC.NURSE ---
PICC Dressing Change: PICC line dressing change due to pt picking at previous dressing that was applied on hi09/18/2023
[2023-09-19 19:10] VITALS: BP 95/56; PULSE 66; RESP 18; TEMP 36.4; O2SAT 96
[2023-09-19] MEDS: nicotine 2 mg Gum BUCCAL (20:17)
[2023-09-19 20:31] LABS: Glucose Point of Care 144 mg/dL (70-110)
[2023-09-20] VITALS (10 sets, daily range): BP systolic 106–172; BP diastolic 61–74; PULSE 75–84; RESP 18–22; TEMP 36.1–36.6; O2SAT 90–97
[2023-09-20] MEDS: heparin 5,000 unit/mL INJ 1 mL 5000 UNIT SUBCUT (03:35)
[2023-09-20] MEDS: clopidogrel 75 mg Tablet PO (05:06)
[2023-09-20 05:53] LABS: Basophils # 0.1 10^3/uL (0.0-0.1); Basophils % 0.5 %; Eosinophils # 3.3 10^3/uL (0.0-0.8); Eosinophils % 25.4 %; Hematocrit 37.1 % (37-53); Lymphocytes # 1.1 10^3/uL (0.8-4.8); Mean Corpuscular HGB Conc 28.8 g/dL (30-55); Mean Corpuscular Volume 79.8 fl (82-101); Monocytes # 0.7 10^3/uL (0.2-0.9); Monocytes % 5.2 %; Neutrophils # 7.84 10^3/uL (1.8-7.7); Neutrophils % 59.5 %; Nucleated Red Blood Cells % 0 %; Platelet Count 238 10^3/cmm (157-399); Red Blood Count 4.65 10^6/uL (3.85-5.65); Red Cell Distribution Width 21.2 % (12.1-15.1); White Blood Count 13.17 10^3/uL (3.29-11.43)
[2023-09-20 06:08] LABS: Alanine Aminotransferase < 5 U/L (0-41); Albumin Level 2.5 g/dL (3.5-5.2); Alkaline Phosphatase 96 U/L (40-130); Anion Gap 11.7 (5-19); Aspartate Amino Transferase 8 U/L (0-40); Blood Urea Nitrogen 36 mg/dL (8-23); Calcium 8.3 mg/dL (8.5-10.5); Carbon Dioxide 33 mmol/L (22-29); Chloride 98 mmol/L (98-107); Globulin 4.7 g/dL (1.3-4.6); Glomerular Filtration Rate 43.1 mL/min (90-130); Glucose 124 mg/dL (65-115); Osmolality Calculated 298 mOsm/kg (285-295); Potassium 3.7 mmol/L (3.5-5.1); Sodium 139 mmol/L (136-145); Total Bilirubin 0.5 mg/dL (0.15-1.2); Total Protein 7.2 g/dL (6.6-8.7)
[2023-09-20 06:59] LABS: Glucose Point of Care 109 mg/dL (70-110)
[2023-09-20] MEDS: piperacillin-tazobactam 3.375 GM in sodium chloride 0.9% (plus) 50 ML IV ×2 (08:17→17:19)
[2023-09-20] MEDS: aspirin 81 mg EC Tablet PO (08:18)
[2023-09-20] MEDS: metoprolol succinate ER (24 HR) 25 mg Tablet PO (08:18)
[2023-09-20] MEDS: fluconazole 100 mg Tablet PO (08:18)
[2023-09-20] MEDS: FUROsemide 40 mg Tablet PO ×2 (08:18→17:18)
[2023-09-20] MEDS: acetaZOLAMIDE 250 mg Tablet 500 MG PO (08:18)
[2023-09-20] MEDS: amlodipine 5 mg Tablet PO ×2 (08:18→17:18)
[2023-09-20] MEDS: neomycin-poly-bacitracin oint 28 gm 1 APPLIC TOPICAL ×2 (08:19→17:22)
[2023-09-20] MEDS: clotrimazole 1% cream 30 gm 1 APPLIC TOPICAL ×2 (08:21→17:22)
[2023-09-20] MEDS: pantoprazole 40 mg SDV IVP (12:25)
--- NOTE | 2023-09-20 14:08 | P.CONIM_ITS ---
Providers/Reason For Consult 2 Attending Physician: Jane Sargetn MD Primary Care Provider: AUGUSTINE Craig History of Present Illness History of Present Illness Armando Coleman is a 68 year old male Medications/Allergies Home Medications Medication Instructions Recorded Confirmed Last Taken Type nitroglycerin 0.4 mg sublingual 0.4 mg sublingual Q5M PRN chest 04/27/19 09/15/23 1 Week Ago Rx tablet pain #30 tabs ~05/30/23 atorvastatin 40 mg tablet 40 mg PO QPM 11/22/21 09/15/23 06/05/23 History clopidogrel 75 mg tablet 75 mg PO QAM #90 tabs 11/24/21 09/15/23 1 Week Ago Rx ~05/30/23 acetaminophen 325 mg tablet 650 mg PO QID PRN Pain 06/06/23 09/15/23 Unknown History aspirin 81 mg tablet,delayed 81 mg PO DAILY #30 tabs 06/24/23 09/15/23 Unknown Rx release furosemide 40 mg tablet 40 mg PO DAILY PRN Edema 07/07/23 09/15/23 Unknown History tizanidine 4 mg tablet 2 mg PO QID PRN Muscle Spasm 07/07/23 09/15/23 Unknown History lisinopril 10 mg tablet 10 mg PO DAILY 09/15/23 09/15/23 Unknown History metoprolol succinate 25 mg 25 mg PO DAILY 09/15/23 09/15/23 Unknown History tablet,extended release 24 hr tamsulosin 0.4 mg capsule 0.4 mg PO QPM 09/15/23 09/15/23 Unknown History amlodipine 5 mg tablet 5 mg PO DAILY #30 tabs 09/25/23 Unknown Rx doxycycline hyclate 100 mg tablet 100 mg PO DAILY 7 days #7 tabs 09/25/23 Unknown Rx mupirocin 2 % topical ointment 1 applic topical TID 14 days #100 09/25/23 Unknown Rx grams nystatin 100,000 unit/gram topical 1 applic topical BID 14 days #100 09/25/23 Unknown Rx powder (Nystop) grams prednisone 10 mg tablet See Rx Instructions .Route 09/25/23 Unknown Rx .COMPLEX #92 tabs triamcinolone acetonide 0.1 % 1 applic topical BID 14 days #100 09/25/23 Unknown Rx topical cream grams Allergies Allergy/AdvReac Type Severity Reaction Status Date / Time No Known Allergies Allergy Verified 07/07/23 12:01 Current Medications Generic Name Dose Route Start Last Admin Trade Name Freq PRN Reason Stop Dose Admin Amlodipine Besylate 5 mg 09/23/23 09:00 09/25/23 08:55 Amlodipine 5 Mg Tablet PO 5 mg DAILY EM Administration Aspirin 81 mg 09/14/23 09:00 09/25/23 08:55 Aspirin 81 Mg Ec Tablet PO 81 mg DAILY EM Administration Atorvastatin Calcium 40 mg 09/13/23 18:00 09/24/23 19:25 Atorvastatin 40 Mg Tablet PO 40 mg QPM EM Administration Clopidogrel Bisulfate 75 mg 09/14/23 06:00 09/25/23 05:00 Clopidogrel 75 Mg Tablet PO 75 mg QAM EM Administration Furosemide 40 mg 09/24/23 08:00 09/24/23 09:53 Furosemide 40 Mg Tablet PO 40 mg DAILY@0800 EM Administration Heparin Sodium (Porcine) 5,000 unit 09/23/23 06:00 09/25/23 05:00 Heparin 5,000 Unit/Ml Inj 1 Ml SUBCUT 5,000 unit Q12H EM Administration Insulin Human Lispro 0 unit 09/24/23 18:00 09/25/23 12:18 Insulin Lispro 100 Unit/1 Ml SUBCUT 10 unit WM&BEDTIME EM Administration Protocol Lanolin 1 applic 09/15/23 12:19 09/15/23 16:22 Lanolin Oint 7 Gm TOPICAL 1 applic PRN PRN Administration DRYNESS Methylprednisolone Sodium Succinate 60 mg 09/22/23 22:00 09/25/23 08:55 Methylprednisolone Sod Succ 125 Mg/2 Ml Inj IVP 09/25/23 21:59 60 mg Q12H EM Administration Metoprolol Tartrate 25 mg 09/20/23 21:00 09/25/23 08:55 Metoprolol Tartrate 25 Mg Tablet PO 25 mg BID@0900,2100 EM Administration Mupirocin 1 applic 09/23/23 15:00 09/25/23 08:57 Mupirocin Oint 22 Gm TOPICAL 1 applic TID EM Administration Nicotine Polacrilex 2 mg 09/19/23 19:53 09/20/23 22:12 Nicotine 2 Mg Gum BUCCAL 2 mg Q2H PRN Administration NICOTINE CRAVINGS Nystatin 1 applic 09/14/23 18:00 09/25/23 08:56 Nystatin Powder 15 Gm Btl TOPICAL 1 applic BID EM Administration Pantoprazole Sodium 40 mg 09/16/23 09:00 09/25/23 08:56 Pantoprazole 40 Mg Sdv IVP 40 mg DAILY EM Administration Tamsulosin HCl 0.4 mg 09/16/23 18:00 09/24/23 19:25 Tamsulosin 0.4 Mg Capsule PO 0.4 mg QPM EM Administration Triamcinolone Acetonide 1 applic 09/23/23 18:00 09/25/23 08:56 Triamcinolone 0.1% Cream 15 Gm TOPICAL 1 applic BID EM Administration Valacyclovir HCl 1,000 mg 09/20/23 18:00 09/25/23 08:55 Valacyclovir 1,000 Mg Tablet PO 09/30/23 17:59 1,000 mg BID EM Administration PFSH Acute 2 PFSH: Medical History Osteomyelitis Decubitus ulcer of sacral region, unstageable Diastolic CHF Cellulitis Cardiomyopathy Falls frequently Periorbital edema of both eyes Skin ulcer Acute on chronic urinary retention Encephalopathy Lactic acidosis Hypothermia Tobacco dependency Multiple sclerosis Troponin level elevated Urinary retention Acute on chronic renal failure Chronic kidney disease Coronary artery disease Lacunar infarction Hyperlipidemia HTN (hypertension) Ischemic cardiomyopathy History of non-ST elevation myocardial infarction (NSTEMI) CHF (congestive heart failure) Surgical History Hx of colonoscopy with polypectomy History of esophagogastroduodenoscopy (EGD) Hx of heart artery stent stents x 2017- unknown vessels Family History Sister Heart disease Hypertension Myocardial infarction Mother Cancer Daughter Myocardial infarction Social History Smoking and tobacco/nicotine status: current every day tobacco/nicotine user cigarettes Packs smoked per day: 0.5 [ Other cigarette details: Cutting down] Alcohol intake: never Substance/Drug Use: unknown Adopted: No Caregiver/support person: No Lives independently: No Marital status: Single Vitals/I&O/Wt Last Vital Signs Temp 97.7 F 09/25/23 12:23 Pulse 80 09/25/23 12:23 Resp 18 09/25/23 12:23 BP 161/87 09/25/23 12:23 Pulse Ox 96 09/25/23 12:23 O2 Del Method Room Air 09/25/23 12:23 O2 Flow Rate 3 09/24/23 08:00 FiO2 3 09/15/23 19:39 09/24/23 09/25/23 09/25/23 22:59 06:59 14:59 Intake Total 1000 / 1840 1000 / 2840 1160 / 1160 Output Total 1400 / 3000 Balance 1000 / 240 -400 / -160 1160 / 1160 Weight last 48 hrs Weight 236 lb 5 oz Weight 236 lb 5 oz Physical Exam 2 Urinary Catheter Management: Barros: Cath Placed During This Visit: yes Reason for Continuing Indwelling Catheter: Other Urinary Catheter Date of Insertion: 09/13/23 Urinary Catheter Time of Insertion: 14:25 Data 09/25/23 07:24 09/25/23 07:24 Coding Level of Care Code Acute Code for Chg Fwd
--- NOTE | 2023-09-20 15:16 | P.PN_ITS ---
Subjective 2 Subjective: Overnight patient had 15 beats of nonsustained V. tach. Patient was sleeping. Denies any nausea vomiting, headache currently. Denies of having any chest pain. Complaining of itching on the rash. Eager to go home. Vitals/I&O/Wt Last Vital Signs Temp 97.6 F 09/20/23 12:00 Pulse 80 09/20/23 12:00 Resp 18 09/20/23 12:00 BP 172/61 09/20/23 12:00 Pulse Ox 90 09/20/23 12:00 O2 Del Method Room Air 09/20/23 12:00 O2 Flow Rate 3 09/20/23 08:00 FiO2 3 09/15/23 19:39 09/20/23 09/20/23 09/20/23 06:59 14:59 22:59 Intake Total 290 / 1330 530 / 530 Output Total 875 / 875 Balance 290 / -3020 -345 / -345 Weight last 48 hrs Weight 115.938 kg Weight 118.705 kg Physical Exam 2 Narrative: General: AO x 2-3, slow to respond, HEENT: Normocephalic, atraumatic, EOMI, Cardio: Regular rate rhythm, normal S1-S2, Respiratory: Clear to auscultation bilaterally, mild ronchi at bases GI: Abdomen soft, nontender, bowel sounds + Extremities: 2+ pitting edema bilaterally all the way up to groin. multiple skin lesions and skin abrasions neck folds have drainage foul smelling drainage. several pressure injuries b/l pedal edema Skin: OTHER: Urinary Catheter Management: Barros: Cath Placed During This Visit: yes Reason for Continuing Indwelling Catheter: Acute Urinary Retention or Obstruction Urinary Catheter Date of Insertion: 09/13/23 Urinary Catheter Time of Insertion: 14:25 Data 09/20/23 04:40 09/20/23 04:40 A&P Assessment and plan (1) Systolic congestive heart failure: Last echocardiogram from June showed an EF of 5% with global severe hypokinesia, moderate eccentric MR, mild TR. Strict input output charting, daily weights. Continue Barros catheterization. Fluid restriction to less than 1500 cc. Patient is overall around 22 L negative. Improved. Switch to Lasix 40 mg twice daily. Developed contraction alkalosis so for now continue with acetazolamide 5 mg oral daily for 1 more day. Repeat BMP in the morning. (2) Respiratory failure with hypercapnia: Resolving. Patient is on room air now. Present on admission most likely in setting of CHF exacerbation. Pneumonia ruled out on admission on CT chest. Oxygen supplementation keeping saturation over 88%. Patient does have a history of COPD. Pulmicort twice daily, DuoNebs every 6 hours. Patient would benefit with BiPAP nightly but he is noncompliant. (3) Hypertensive emergency: Blood pressure is better controlled now. Goal blood pressure less than 140/90 mmHg. Blood pressure slightly elevated. Increase amlodipine to 10 mg oral daily, switch to metoprolol 25 mg twice daily. If needed will restart home dose of hydralazine versus adding low-dose clonidine. (4) Urinary tract infection: Appreciate culture history. Patient has history of infection in the past from Enterococcus VRE, Staphylococcus, pansensitive E. coli. For now continue with broad-spectrum antibiotics. Urine culture currently growing ESBL Proteus. Wound culture growing MRSA. Continue with vancomycin and Zosyn to finish 7-day course. Last dose on 09/19. Qualifiers: Urinary tract infection type: acute pyelonephritis Qualified Code(s): N 10 - Acute pyelonephritis (5) Rash: Generalized rash. Sparing the face. Vesicular in nature in different stages. Patient having boils which is busting open. Could be drug reaction. Only medication to possibly cause reaction patient is hydralazine. Currently patient does not have hydralazine and the rash is not improving. Could be disseminated herpes.. Will check herpes simplex viral culture, VZV DNA PCR. Start on Valtrex 1 g twice daily. Cannot rule out Ecthyema gangrenosum. Patient is already on cover for Pseudomonas. (6) Sepsis: SIRS: Tachycardic, hypothermia, Leukocytosis on admission. Currently resolved. Source: Cellulitis, UTI End organ damage: Acute infectious encephalopathy, respiratory failure Patient did not receive full 30 mL/kg BW given concerns for congestive heart failure. Monitor blood pressures. Keep mean artery pressure 65 mmHg. Follow-up blood culture, urine culture. Check urine Legionella and bacterial antigen. Continue broad-spectrum antibiotics with vancomycin and Zosyn for now. Will de- escalate as per culture results. (7) Altered mental status: Resolved. Most likely in setting of sepsis and hypercapnia leading to respiratory acidosis. Aspiration precaution, fall precaution. Continue to monitor. Qualifiers: Altered mental status type: somnolence Qualified Code(s): R40.0 - Somnolence (8) Acute hyponatremia: Resolved. Most likely hypervolemic hyponatremia. Continue to monitor. (9) Pressure injury of deep tissue of sacral region: History of chronic sacral osteomyelitis and decubitus ulcer. Appreciate surgical recommendations. No plan for debridement for now. (10) Sacral decubitus ulcer, stage IV: (11) Multiple sclerosis: (12) Respiratory acidosis: Plan Nonsustained V. tach: Overnight. Asymptomatic. Monitor electrolytes. Keep potassium around 4, magnesium around 2. Metoprolol 25 mg twice daily. CODE STATUS: Appreciate documentation. Documentation admission patient declined intubation. Patient does not want to be intubated or resuscitated though he is okay with the ICU admission, ACLS protocol medication and defibrillation if needed. Currently limited resuscitation. NPO. Protonix for PUD prophylaxis heparin 5000 every 12 hourly for DVT prophylaxis Discharge plan: Given multiple readmissions patient would benefit from SNF placement though patient has been declining on this on on previous admissions. Family is agreeable for home meds for now. Attestations 2 Medical Necessity Statement*: Requires further hospitalization for management of generalized rash viral specimen herpes is ruled out, CHF V. tach in a patient who was admitted with respiratory failure and altered mental status in setting of hypercapnia Diagnoses Systolic congestive heart failure I50.20 Respiratory failure with hypercapnia J96.92 Hypertensive emergency I16.1 Urinary tract infection N10 Urinary tract infection type: acute pyelonephritis Rash R21 Sepsis A41.9 Altered mental status R40.0 Altered mental status type: somnolence Acute hyponatremia E87.1 Pressure injury of deep tissue of sacral region L89.156 Sacral decubitus ulcer, stage IV L89.154 Multiple sclerosis G35 Respiratory acidosis E87.29
[2023-09-20 16:18] LABS: Glucose Point of Care 139 mg/dL (70-110)
[2023-09-20] MEDS: atorvastatin 40 mg Tablet PO (17:18)
[2023-09-20] MEDS: valACYclovir 1,000 mg Tablet 1000 MG PO (17:18)
[2023-09-20] MEDS: tamsulosin 0.4 mg Capsule PO (17:18)
[2023-09-20] MEDS: nystatin powder 15 gm Btl 1 APPLIC TOPICAL (17:22)
[2023-09-20 17:28] LABS: HIV 1 & 2 Antibody Non-Reactive (Non-Reactiv); HIV 1 & 2 Antigen Non-Reactive (Non-Reactiv)
[2023-09-20 17:36] LABS: Hepatitis A Antibody IgM Non-Reactive (Nonreactive); Hepatitis B Core AB, Total Non-Reactive (Nonreactive); Hepatitis B Surface AB < 3.5 (11.5-1000); Hepatitis B Surface Antigen Non-Reactive (Nonreactive); Hepatitis C Virus Antibody Non-Reactive (Nonreactive)
[2023-09-20] MEDS: cloNIDine 0.1 mg Tablet PO (18:11)
[2023-09-20 20:53] LABS: Glucose Point of Care 143 mg/dL (70-110)
[2023-09-20] MEDS: metoprolol tartrate 25 mg Tablet PO (20:59)
[2023-09-20] MEDS: nicotine 2 mg Gum BUCCAL ×2 (20:59→22:12)
[2023-09-20] MEDS: vancomycin 1,000 MG in sodium chloride 0.9% 250 ML 250 MG IV (21:00)
[2023-09-21] VITALS (10 sets, daily range): BP systolic 98–130; BP diastolic 54–75; PULSE 78–84; RESP 18–20; TEMP 36.6–36.9; O2SAT 90–92
[2023-09-21] MEDS: piperacillin-tazobactam 3.375 GM in sodium chloride 0.9% (plus) 50 ML IV ×4 (00:06→23:38)
[2023-09-21] MEDS: heparin 5,000 unit/mL INJ 1 mL 5000 UNIT SUBCUT ×2 (03:46→17:08)
[2023-09-21] MEDS: clopidogrel 75 mg Tablet PO (05:12)
[2023-09-21 05:41] LABS: Basophils # 0.1 10^3/uL (0.0-0.1); Basophils % 0.4 %; Eosinophils # 3.4 10^3/uL (0.0-0.8); Eosinophils % 17.2 %; Hematocrit 36.2 % (37-53); Lymphocytes # 1.3 10^3/uL (0.8-4.8); Lymphocytes % 6.5 %; Mean Corpuscular HGB Conc 29.3 g/dL (30-55); Mean Corpuscular Hemoglobin 23.3 pg (27-33); Mean Corpuscular Volume 79.6 fl (82-101); Mean Platelet Volume 10.3 fL (7.4-10.4); Monocytes # 0.9 10^3/uL (0.2-0.9); Monocytes % 4.4 %; Neutrophils # 13.68 10^3/uL (1.8-7.7); Neutrophils % 70.2 %; Nucleated Red Blood Cells % 0 %; Platelet Count 280 10^3/cmm (157-399); Red Blood Count 4.55 10^6/uL (3.85-5.65); Red Cell Distribution Width 21.2 % (12.1-15.1); White Blood Count 19.48 10^3/uL (3.29-11.43)
[2023-09-21 06:12] LABS: Alanine Aminotransferase < 5 U/L (0-41); Albumin Level 2.4 g/dL (3.5-5.2); Alkaline Phosphatase 89 U/L (40-130); Aspartate Amino Transferase 8 U/L (0-40); Blood Urea Nitrogen 43 mg/dL (8-23); Calcium 8.3 mg/dL (8.5-10.5); Carbon Dioxide 32 mmol/L (22-29); Chloride 97 mmol/L (98-107); Globulin 4.5 g/dL (1.3-4.6); Glomerular Filtration Rate 46.4 mL/min (90-130); Glucose 118 mg/dL (65-115); Magnesium 2.2 mg/dL (1.7-2.3); Osmolality Calculated 298 mOsm/kg (285-295); Sodium 138 mmol/L (136-145); Total Bilirubin 0.5 mg/dL (0.15-1.2); Total Protein 6.9 g/dL (6.6-8.7)
[2023-09-21 06:32] LABS: Glucose Point of Care 134 mg/dL (70-110)
[2023-09-21] MEDS: acetaZOLAMIDE 250 mg Tablet 500 MG PO (08:26)
[2023-09-21] MEDS: aspirin 81 mg EC Tablet PO (08:26)
[2023-09-21] MEDS: FUROsemide 40 mg Tablet PO ×2 (08:26→17:08)
[2023-09-21] MEDS: valACYclovir 1,000 mg Tablet 1000 MG PO ×2 (08:26→17:13)
[2023-09-21] MEDS: fluconazole 100 mg Tablet PO (08:27)
[2023-09-21] MEDS: amlodipine 10 mg Tablet PO (08:27)
[2023-09-21] MEDS: pantoprazole 40 mg SDV IVP (09:20)
[2023-09-21 10:40] LABS: Vancomycin Random 23.6 ug/mL (20.0-40.0)
[2023-09-21] MEDS: metoprolol tartrate 25 mg Tablet PO ×2 (10:46→20:25)
[2023-09-21 11:36] LABS: Glucose Point of Care 132 mg/dL (70-110)
--- NOTE | 2023-09-21 15:18 | P.PN_ITS ---
Subjective 2 Subjective: No acute events overnight. Today morning patient seen sitting comfortably in bed. Denies any nausea, vomiting, headache. Blood pressure dropped yesterday after getting oral clonidine. Patient denies any new complaints. Rash appears to be stable. Rates less itching. Vitals/I&O/Wt Last Vital Signs Temp 97.9 F 09/21/23 11:50 Pulse 79 09/21/23 11:50 Resp 18 09/21/23 11:50 BP 99/54 09/21/23 11:50 Pulse Ox 90 09/21/23 11:50 O2 Del Method Room Air 09/21/23 11:50 O2 Flow Rate 3.5 09/21/23 08:54 FiO2 3 09/15/23 19:39 09/21/23 09/21/23 09/21/23 06:59 14:59 22:59 Intake Total 50 / 1360 650 / 650 Output Total 450 / 4550 Balance -400 / -3190 650 / 650 Weight last 48 hrs Weight 112.576 kg Weight 115.938 kg Physical Exam 2 Narrative: General: AO x 2-3, slow to respond, HEENT: Normocephalic, atraumatic, EOMI, Cardio: Regular rate rhythm, normal S1-S2, Respiratory: Clear to auscultation bilaterally, mild ronchi at bases GI: Abdomen soft, nontender, bowel sounds + Extremities: 2+ pitting edema bilaterally all the way up to groin. multiple skin lesions and skin abrasions neck folds have drainage foul smelling drainage. several pressure injuries b/l pedal edema Skin: OTHER: Urinary Catheter Management: Barros: Cath Placed During This Visit: yes Reason for Continuing Indwelling Catheter: Other Urinary Catheter Date of Insertion: 09/13/23 Urinary Catheter Time of Insertion: 14:25 Data 09/21/23 05:05 09/21/23 05:05 A&P Assessment and plan (1) Systolic congestive heart failure: Last echocardiogram from June showed an EF of 2024% with global severe hypokinesia, moderate eccentric MR, mild TR. Strict input output charting, daily weights. Continue Barros catheterization. Fluid restriction to less than 1500 cc. Patient is overall around 22 L negative. Improved. Switch to Lasix 40 mg twice daily. Developed contraction alkalosis so for now continue with acetazolamide 5 mg oral daily for 1 more day. Repeat BMP in the morning. (2) Respiratory failure with hypercapnia: Resolving. Patient is on room air now. Present on admission most likely in setting of CHF exacerbation. Pneumonia ruled out on admission on CT chest. Oxygen supplementation keeping saturation over 88%. Patient does have a history of COPD. Pulmicort twice daily, DuoNebs every 6 hours. Patient would benefit with BiPAP nightly but he is noncompliant. (3) Hypertensive emergency: Blood pressure is better controlled now. Goal blood pressure less than 140/90 mmHg. Blood pressure slightly elevated. Increase amlodipine to 10 mg oral daily, switch to metoprolol 25 mg twice daily. If needed will restart home dose of hydralazine versus adding low-dose clonidine. (4) Urinary tract infection: Appreciate culture history. Patient has history of infection in the past from Enterococcus VRE, Staphylococcus, pansensitive E. coli. For now continue with broad-spectrum antibiotics. Urine culture currently growing ESBL Proteus. Wound culture growing MRSA. Continue with vancomycin and Zosyn to finish 7-day course. Last dose on 09/19. Qualifiers: Urinary tract infection type: acute pyelonephritis Qualified Code(s): N 10 - Acute pyelonephritis (5) Rash: Generalized rash. Sparing the face. Vesicular in nature in different stages. Patient having boils which is busting open. Could be drug reaction. Only medication to possibly cause reaction patient is hydralazine. Currently patient does not have hydralazine and the rash is not improving. Could be disseminated herpes.. Will check herpes simplex viral culture, VZV DNA PCR. Start on Valtrex 1 g twice daily. Cannot rule out Ecthyema gangrenosum. Patient is already on cover for Pseudomonas. (6) Sepsis: SIRS: Tachycardic, hypothermia, Leukocytosis on admission. Currently resolved. Source: Cellulitis, UTI End organ damage: Acute infectious encephalopathy, respiratory failure Patient did not receive full 30 mL/kg BW given concerns for congestive heart failure. Monitor blood pressures. Keep mean artery pressure 65 mmHg. Follow-up blood culture, urine culture. Check urine Legionella and bacterial antigen. Continue broad-spectrum antibiotics with vancomycin and Zosyn for now. Will de- escalate as per culture results. (7) Altered mental status: Resolved. Most likely in setting of sepsis and hypercapnia leading to respiratory acidosis. Aspiration precaution, fall precaution. Continue to monitor. Qualifiers: Altered mental status type: somnolence Qualified Code(s): R40.0 - Somnolence (8) Acute hyponatremia: Resolved. Most likely hypervolemic hyponatremia. Continue to monitor. (9) Pressure injury of deep tissue of sacral region: History of chronic sacral osteomyelitis and decubitus ulcer. Appreciate surgical recommendations. No plan for debridement for now. (10) Sacral decubitus ulcer, stage IV: (11) Multiple sclerosis: (12) Respiratory acidosis: Plan Nonsustained V. tach: Overnight. Asymptomatic. Monitor electrolytes. Keep potassium around 4, magnesium around 2. Metoprolol 25 mg twice daily. CODE STATUS: Appreciate documentation. Documentation admission patient declined intubation. Patient does not want to be intubated or resuscitated though he is okay with the ICU admission, ACLS protocol medication and defibrillation if needed. Currently limited resuscitation. NPO. Protonix for PUD prophylaxis heparin 5000 every 12 hourly for DVT prophylaxis Plan for the day: Continue with oral Lasix 40 mg twice daily. Contraction alkalosis stable. Hold off on any further acetazolamide. Patient around 24 L negative. Continue with fluid restriction. Hypercapnic respiratory failure seems to have resolved. Blood pressures were elevated yesterday. Increase amlodipine to 10 mg daily and continue with home dose of metoprolol. Added low-dose clonidine 0.1 mg twice daily but blood pressure dropped after adding clonidine. Hold off on any further clonidine. Not adding home dose of hydralazine given concerns for drug- induced rash. Will continue to monitor with goal blood pressure of less than 140/90 mmHg with mean over 65. Continue with IV Zosyn and vancomycin. Patient has finished a 7-day course but has mild worsening of leukocytosis today. Patient has remained afebrile. Denies any new complaints. Blood cultures so far have remained negative. Urine cultures were Proteus mirabilis ESBL positive via wound culture positive for MRSA. If patient spikes a fever will transition to IV meropenem and will continue vancomycin. Monitor Vanco trough. Repeat Vanco random level in AM. Repositioning in bed given chronic sacral osteomyelitis. Continue with oral Valtrex 1 g twice daily. Monitor renal functions. Herpes simplex viral culture and VZV DNA PCR sent yesterday. Airborne precautions till disseminated herpes is ruled out. Discharge plan: Given multiple readmissions patient would benefit from SNF placement though patient has been declining on this on on previous admissions. Family is agreeable for home meds for now. Attestations 2 Medical Necessity Statement*: Requires further hospitalization for management of significant rash while disseminated herpes is ruled out in a patient who was initially admitted for altered mental status in setting of hypercapnic respiratory failure from congestive heart failure, Proteus ESBL UTI in a patient with chronic sacral osteomyelitis Diagnoses Systolic congestive heart failure I50.20 Respiratory failure with hypercapnia J96.92 Hypertensive emergency I16.1 Urinary tract infection N10 Urinary tract infection type: acute pyelonephritis Rash R21 Sepsis A41.9 Altered mental status R40.0 Altered mental status type: somnolence Acute hyponatremia E87.1 Pressure injury of deep tissue of sacral region L89.156 Sacral decubitus ulcer, stage IV L89.154 Multiple sclerosis G35 Respiratory acidosis E87.29
[2023-09-21 16:16] LABS: Glucose Point of Care 164 mg/dL (70-110)
[2023-09-21] MEDS: tamsulosin 0.4 mg Capsule PO (17:08)
[2023-09-21] MEDS: atorvastatin 40 mg Tablet PO (17:08)
[2023-09-21 20:58] LABS: Glucose Point of Care 164 mg/dL (70-110)
[2023-09-22] VITALS (8 sets, daily range): BP systolic 94–154; BP diastolic 56–76; PULSE 77–87; RESP 18–20; TEMP 36.3–37.3; O2SAT 90–98
--- NOTE | 2023-09-22 01:12 | PC.NURSE ---
Pt requesting chocolate milk and a sandwich. Pt educated on fluid restriction, pt states when I don't have a blood infection then I will follow it . Educated on CHF and fluid retention. Pt states I don't care .
--- NOTE | 2023-09-22 01:40 | PC.NURSE ---
Pt demanding another chocolate milk, educated again on fluid restriction. Pt con't to remain noncompliant at this time.
[2023-09-22] MEDS: heparin 5,000 unit/mL INJ 1 mL 5000 UNIT SUBCUT ×2 (03:41→15:35)
[2023-09-22 03:54] LABS: Basophils # 0.1 10^3/uL (0.0-0.1); Basophils % 0.4 %; Eosinophils # 3.5 10^3/uL (0.0-0.8); Eosinophils % 16.9 %; Hematocrit 37.4 % (37-53); Lymphocytes # 1.2 10^3/uL (0.8-4.8); Lymphocytes % 5.8 %; Mean Corpuscular HGB Conc 29.4 g/dL (30-55); Mean Corpuscular Hemoglobin 23.3 pg (27-33); Mean Corpuscular Volume 79.1 fl (82-101); Mean Platelet Volume 9.6 fL (7.4-10.4); Monocytes % 4.9 %; Neutrophils % 70.9 %; Nucleated Red Blood Cells % 0 %; Platelet Count 293 10^3/cmm (157-399); Red Blood Count 4.73 10^6/uL (3.85-5.65); Red Cell Distribution Width 21.5 % (12.1-15.1); White Blood Count 20.88 10^3/uL (3.29-11.43)
[2023-09-22 04:25] LABS: Alanine Aminotransferase < 5 U/L (0-41); Albumin Level 2.6 g/dL (3.5-5.2); Alkaline Phosphatase 93 U/L (40-130); Anion Gap 13.1 (5-19); Aspartate Amino Transferase 8 U/L (0-40); Blood Urea Nitrogen 51 mg/dL (8-23); Calcium 8.1 mg/dL (8.5-10.5); Carbon Dioxide 29 mmol/L (22-29); Chloride 99 mmol/L (98-107); Globulin 4.3 g/dL (1.3-4.6); Glomerular Filtration Rate 40.2 mL/min (90-130); Glucose 181 mg/dL (65-115); Osmolality Calculated 302 mOsm/kg (285-295); Potassium 4.1 mmol/L (3.5-5.1); Sodium 137 mmol/L (136-145); Total Bilirubin 0.4 mg/dL (0.15-1.2); Total Protein 6.9 g/dL (6.6-8.7)
[2023-09-22 04:28] LABS: Magnesium 2.2 mg/dL (1.7-2.3)
[2023-09-22] MEDS: clopidogrel 75 mg Tablet PO (05:45)
[2023-09-22 06:43] LABS: Glucose Point of Care 119 mg/dL (70-110)
[2023-09-22] MEDS: pantoprazole 40 mg SDV IVP (08:30)
[2023-09-22] MEDS: metoprolol tartrate 25 mg Tablet PO ×2 (08:31→21:38)
[2023-09-22] MEDS: amlodipine 10 mg Tablet PO (08:31)
[2023-09-22] MEDS: fluconazole 100 mg Tablet PO (08:31)
[2023-09-22] MEDS: valACYclovir 1,000 mg Tablet 1000 MG PO ×2 (08:31→17:39)
[2023-09-22] MEDS: FUROsemide 40 mg Tablet PO ×2 (08:32→17:39)
[2023-09-22] MEDS: aspirin 81 mg EC Tablet PO (08:32)
[2023-09-22] MEDS: piperacillin-tazobactam 3.375 GM in sodium chloride 0.9% (plus) 50 ML IV ×2 (08:32→15:34)
[2023-09-22] MEDS: nystatin powder 15 gm Btl 1 APPLIC TOPICAL ×2 (08:33→21:38)
[2023-09-22] MEDS: clotrimazole 1% cream 30 gm 1 APPLIC TOPICAL ×2 (08:36→21:37)
[2023-09-22] MEDS: neomycin-poly-bacitracin oint 28 gm 1 APPLIC TOPICAL ×2 (08:36→21:38)
[2023-09-22 10:34] LABS: Glucose Point of Care 119 mg/dL (70-110)
--- NOTE | 2023-09-22 13:04 | P.PN_ITS ---
Subjective 2 Subjective: seen this am pt states get rid of my bugs and ill be fine says i feel like shit vitals stable no acute distress Vitals/I&O/Wt Last Vital Signs Temp 97.4 F L 09/22/23 11:38 Pulse 78 09/22/23 11:38 Resp 18 09/22/23 11:38 BP 94/56 09/22/23 11:38 Pulse Ox 96 09/22/23 11:38 O2 Del Method Nasal Cannula 09/22/23 11:38 O2 Flow Rate 3.5 09/21/23 08:54 FiO2 3 09/15/23 19:39 09/21/23 09/22/23 09/22/23 22:59 06:59 14:59 Intake Total 530 / 1180 1610 / 2790 290 / 290 Output Total 4200 / 4200 2700 / 6900 Balance -3670 / -3020 -1090 / -4110 290 / 290 Weight last 48 hrs Weight 108.182 kg Weight 112.576 kg Physical Exam 2 Narrative: General: AO x 2-3, slow to respond, HEENT: Normocephalic, atraumatic, EOMI, Cardio: Regular rate rhythm, normal S1-S2, Respiratory: Clear to auscultation bilaterally, mild ronchi at bases GI: Abdomen soft, nontender, bowel sounds + Extremities: 2+ pitting edema bilaterally all the way up to groin. multiple skin lesions and skin abrasions neck folds have drainage foul smelling drainage. several pressure injuries b/l pedal edema multiple yellow fluid filled blilsters all over shoulders and chest area, all intact, none draining at this time. Urinary Catheter Management: Barros: Cath Placed During This Visit: yes Reason for Continuing Indwelling Catheter: Other Urinary Catheter Date of Insertion: 09/13/23 Urinary Catheter Time of Insertion: 14:25 Data 09/22/23 02:44 09/22/23 02:44 A&P Assessment and plan (1) Systolic congestive heart failure: Last echocardiogram from June showed an EF of 2024% with global severe hypokinesia, moderate eccentric MR, mild TR. Strict input output charting, daily weights. Continue Barros catheterization. Fluid restriction to less than 1500 cc. Patient is overall around 22 L negative. Improved. Switch to Lasix 40 mg twice daily. Developed contraction alkalosis so for now continue with acetazolamide 5 mg oral daily for 1 more day. Repeat BMP in the morning. (2) Respiratory failure with hypercapnia: Resolving. Patient is on room air now. Present on admission most likely in setting of CHF exacerbation. Pneumonia ruled out on admission on CT chest. Oxygen supplementation keeping saturation over 88%. Patient does have a history of COPD. Pulmicort twice daily, DuoNebs every 6 hours. Patient would benefit with BiPAP nightly but he is noncompliant. (3) Hypertensive emergency: Blood pressure is better controlled now. Goal blood pressure less than 140/90 mmHg. Blood pressure slightly elevated. Increase amlodipine to 10 mg oral daily, switch to metoprolol 25 mg twice daily. If needed will restart home dose of hydralazine versus adding low-dose clonidine. (4) Urinary tract infection: Appreciate culture history. Patient has history of infection in the past from Enterococcus VRE, Staphylococcus, pansensitive E. coli. For now continue with broad-spectrum antibiotics. Urine culture currently growing ESBL Proteus. Wound culture growing MRSA. Continue with vancomycin and Zosyn to finish 7-day course. Last dose on 09/19. Qualifiers: Urinary tract infection type: acute pyelonephritis Qualified Code(s): N 10 - Acute pyelonephritis (5) Rash: Generalized rash. Sparing the face. Vesicular in nature in different stages. Patient having boils which is busting open. Could be drug reaction. Only medication to possibly cause reaction patient is hydralazine. Currently patient does not have hydralazine and the rash is not improving. Could be disseminated herpes.. Will check herpes simplex viral culture, VZV DNA PCR. Start on Valtrex 1 g twice daily. Cannot rule out Ecthyema gangrenosum. Patient is already on cover for Pseudomonas. (6) Sepsis: SIRS: Tachycardic, hypothermia, Leukocytosis on admission. Currently resolved. Source: Cellulitis, UTI End organ damage: Acute infectious encephalopathy, respiratory failure Patient did not receive full 30 mL/kg BW given concerns for congestive heart failure. Monitor blood pressures. Keep mean artery pressure 65 mmHg. Follow-up blood culture, urine culture. Check urine Legionella and bacterial antigen. Continue broad-spectrum antibiotics with vancomycin and Zosyn for now. Will de- escalate as per culture results. (7) Altered mental status: Resolved. Most likely in setting of sepsis and hypercapnia leading to respiratory acidosis. Aspiration precaution, fall precaution. Continue to monitor. Qualifiers: Altered mental status type: somnolence Qualified Code(s): R40.0 - Somnolence (8) Acute hyponatremia: Resolved. Most likely hypervolemic hyponatremia. Continue to monitor. (9) Pressure injury of deep tissue of sacral region: History of chronic sacral osteomyelitis and decubitus ulcer. Appreciate surgical recommendations. No plan for debridement for now. (10) Sacral decubitus ulcer, stage IV: (11) Multiple sclerosis: (12) Respiratory acidosis: Plan Nonsustained V. tach: Overnight. Asymptomatic. Monitor electrolytes. Keep potassium around 4, magnesium around 2. Metoprolol 25 mg twice daily. CODE STATUS: Appreciate documentation. Documentation admission patient declined intubation. Patient does not want to be intubated or resuscitated though he is okay with the ICU admission, ACLS protocol medication and defibrillation if needed. Currently limited resuscitation. NPO. Protonix for PUD prophylaxis heparin 5000 every 12 hourly for DVT prophylaxis Plan for the day: Continue with oral Lasix 40 mg twice daily. Contraction alkalosis stable. Hold off on any further acetazolamide. Patient around 24 L negative. Continue with fluid restriction. Hypercapnic respiratory failure seems to have resolved. Continue amlodipine to 5 (cut down from 10) mg daily and continue with home dose of metoprolol. Stopped clonidine. Not adding home dose of hydralazine given concerns for drug-induced rash. Will continue to monitor with goal blood pressure of less than 140/90 mmHg with mean over 65. Continue with IV Zosyn and vancomycin. Patient has finished a 7-day course but has mild worsening of leukocytosis today. Patient has remained afebrile. Denies any new complaints. Blood cultures so far have remained negative. Urine cultures were Proteus mirabilis ESBL positive via wound culture positive for MRSA. If patient spikes a fever will transition to IV meropenem and will continue vancomycin. Monitor Vanco trough. Repeat Vanco random level in AM. Repositioning in bed given chronic sacral osteomyelitis. Continue with oral Valtrex 1 g twice daily. Monitor renal functions. Herpes simplex viral culture and VZV DNA PCR sent yesterday. Airborne precautions till disseminated herpes is ruled out. - check skin biopsy, consult gen surgery. Will discuss with dermatology Discharge plan: Given multiple readmissions patient would benefit from SNF placement though patient has been declining on this on on previous admissions. Family is agreeable for home meds for now. Attestations 2 Medical Necessity Statement*: Requires further hospitalization for management of significant rash while disseminated herpes is ruled out in a patient who was initially admitted for altered mental status in setting of hypercapnic respiratory failure from congestive heart failure, Proteus ESBL UTI in a patient with chronic sacral osteomyelitis Diagnoses Systolic congestive heart failure I50.20 Respiratory failure with hypercapnia J96.92 Hypertensive emergency I16.1 Urinary tract infection N10 Urinary tract infection type: acute pyelonephritis Rash R21 Sepsis A41.9 Altered mental status R40.0 Altered mental status type: somnolence Acute hyponatremia E87.1 Pressure injury of deep tissue of sacral region L89.156 Sacral decubitus ulcer, stage IV L89.154 Multiple sclerosis G35 Respiratory acidosis E87.29
--- NOTE | 2023-09-22 14:09 | P.PN_ITS ---
Subjective 2 Subjective: Patient seen and examined. Skin biopsy site is still oozing blood. Patient denies any pain from biopsy site Vitals/I&O/Wt Last Vital Signs Temp 97.7 F 09/25/23 12:23 Pulse 80 09/25/23 12:23 Resp 18 09/25/23 12:23 BP 161/87 09/25/23 12:23 Pulse Ox 96 09/25/23 12:23 O2 Del Method Room Air 09/25/23 12:23 O2 Flow Rate 3 09/24/23 08:00 FiO2 3 09/15/23 19:39 09/24/23 09/25/23 09/25/23 22:59 06:59 14:59 Intake Total 1000 / 1840 1000 / 2840 1160 / 1160 Output Total 1400 / 3000 Balance 1000 / 240 -400 / -160 1160 / 1160 Weight last 48 hrs Weight 236 lb 5 oz Weight 236 lb 5 oz Physical Exam 2 Narrative: General: No acute distress, awake alert and oriented x 3 Skin: There is a vesicular rash across his entire body Urinary Catheter Management: Barros: Cath Placed During This Visit: yes Reason for Continuing Indwelling Catheter: Other Urinary Catheter Date of Insertion: 09/13/23 Urinary Catheter Time of Insertion: 14:25 Data 09/25/23 07:24 09/25/23 07:24 A&P Assessment and plan (1) Rash: Plan Keep bandage over biopsy site Await results of pathology No further surgical intervention Attestations 2 Medical Necessity Statement*: Per primary Coding Level of Care Code 54664 Diagnoses Rash R21
--- NOTE | 2023-09-22 15:34 | PC.SOCIAL ---
IMM Update IMM updated, copy given to patient and placed in chart.
[2023-09-22 16:47] LABS: Glucose Point of Care 115 mg/dL (70-110)
[2023-09-22] MEDS: atorvastatin 40 mg Tablet PO (17:39)
[2023-09-22] MEDS: tamsulosin 0.4 mg Capsule PO (17:39)
[2023-09-22 20:47] LABS: Glucose Point of Care 190 mg/dL (70-110)
[2023-09-22 20:57] LABS: Vancomycin Trough 14.5 ug/mL (10-15)
--- NOTE | 2023-09-22 21:28 | PC.NURSE ---
ask pt if he wanted to be turned and pt refused said he was comfortable i explained to him that he had sores on his bottom and needed to get off of them and he still refused nurse notified
[2023-09-22] MEDS: vancomycin 1,000 MG in sodium chloride 0.9% 250 ML 250 MG IV (21:33)
[2023-09-22] MEDS: methylPREDNISolone sod succ 125 mg/2 mL INJ 60 MG IVP (22:45)
--- NOTE | 2023-09-22 22:51 | PC.NURSE ---
Upon rounding, patient's nasal cannula was off nose. When checking oxygen saturation, it was 92 percent. Patient left on room air.
--- NOTE | 2023-09-22 22:53 | PC.NURSE ---
[employer] reports to me that patient is refusing to be turned. When I educated patient that turning is to prevent worsening of pressure injury, patient states, I'm an old man and I'm tired of being messed with.
[2023-09-23] VITALS (7 sets, daily range): BP systolic 97–125; BP diastolic 62–71; PULSE 75–94; RESP 17–18; TEMP 36.4–37.1; O2SAT 90–93
--- NOTE | 2023-09-23 03:24 | PC.NURSE ---
Addendum entered by Ludivina Meeks RN 09/23/23 03:33: Patient non-compliant with fluid restriction and resistant to education. Original Note: Patient becomes angry when educated him on fluid restriction. Patient states that's a bunch of bullshit.
--- NOTE | 2023-09-23 03:26 | PC.NURSE ---
Addendum entered by Ludivina Meeks RN 09/23/23 03:34: Patient again educated that he needs to be turned on his side in order for the wounds on his bottom to heal. Patient refuses and states I don't give a shit. Original Note: Complete bed bath and linen change given. Multiple blisters/rash to chest, anterior and posterior neck, arms, and legs. Neosporin applied to open areas of skin and lotrimin applied to the rest of the rash. Skin biopsy site removal to right chest. An optifoam was placed on skin biopsy site due to dressing being saturated. Excoriation to bilateral groin. Nystatin power applied to bilateral groins. Multiple pressure injuries and skin tears to buttocks. An optifoam placed on one of pressure injuries to buttock. Barrier cream applied to the rest of buttocks. Stat lock applied to liu catheter.
[2023-09-23] MEDS: heparin 5,000 unit/mL INJ 1 mL 5000 UNIT SUBCUT ×2 (05:26→17:16)
[2023-09-23] MEDS: clopidogrel 75 mg Tablet PO (05:26)
[2023-09-23 05:31] LABS: Basophils # 0.1 10^3/uL (0.0-0.1); Basophils % 0.3 %; Eosinophils # 0.3 10^3/uL (0.0-0.8); Eosinophils % 1.4 %; Hematocrit 37.8 % (37-53); Lymphocytes # 0.6 10^3/uL (0.8-4.8); Mean Corpuscular HGB Conc 29.9 g/dL (30-55); Mean Corpuscular Hemoglobin 23.3 pg (27-33); Mean Corpuscular Volume 78.1 fl (82-101); Mean Platelet Volume 9.7 fL (7.4-10.4); Monocytes # 0.2 10^3/uL (0.2-0.9); Monocytes % 0.9 %; Neutrophils # 19.65 10^3/uL (1.8-7.7); Neutrophils % 93.6 %; Nucleated Red Blood Cells % 0 %; Platelet Count 308 10^3/cmm (157-399); Red Blood Count 4.84 10^6/uL (3.85-5.65); Red Cell Distribution Width 21.8 % (12.1-15.1)
[2023-09-23 05:53] LABS: Anion Gap 16.6 (5-19); Blood Urea Nitrogen 54 mg/dL (8-23); Calcium 8.3 mg/dL (8.5-10.5); Carbon Dioxide 26 mmol/L (22-29); Chloride 97 mmol/L (98-107); Glomerular Filtration Rate 37.6 mL/min (90-130); Glucose 220 mg/dL (65-115); Magnesium 2.3 mg/dL (1.7-2.3); Osmolality Calculated 302 mOsm/kg (285-295); Potassium 4.6 mmol/L (3.5-5.1); Sodium 135 mmol/L (136-145)
[2023-09-23 06:20] LABS: Glucose Point of Care 260 mg/dL (70-110)
[2023-09-23] MEDS: FUROsemide 40 mg Tablet PO (08:38)
[2023-09-23] MEDS: aspirin 81 mg EC Tablet PO (08:38)
[2023-09-23] MEDS: amlodipine 5 mg Tablet PO (08:38)
[2023-09-23] MEDS: metoprolol tartrate 25 mg Tablet PO ×2 (08:38→19:27)
[2023-09-23] MEDS: valACYclovir 1,000 mg Tablet 1000 MG PO ×2 (08:38→17:16)
[2023-09-23] MEDS: nystatin powder 15 gm Btl 1 APPLIC TOPICAL ×2 (08:39→17:17)
[2023-09-23] MEDS: clotrimazole 1% cream 30 gm 1 APPLIC TOPICAL (08:39)
[2023-09-23] MEDS: neomycin-poly-bacitracin oint 28 gm 1 APPLIC TOPICAL (08:39)
[2023-09-23] MEDS: pantoprazole 40 mg SDV IVP (09:38)
[2023-09-23] MEDS: methylPREDNISolone sod succ 125 mg/2 mL INJ 60 MG IVP ×2 (09:39→19:28)
[2023-09-23 10:43] LABS: Glucose Point of Care 226 mg/dL (70-110)
--- NOTE | 2023-09-23 14:19 | P.PN_ITS ---
Subjective 2 Subjective: seen this am blisters on skin have ruptured with some bleeding and yellow fluid drainage biopsy completed yesterday discussed with security management specialist over phone Vitals/I&O/Wt Last Vital Signs Temp 98.5 F 09/23/23 11:38 Pulse 84 09/23/23 11:38 Resp 18 09/23/23 11:38 BP 122/68 09/23/23 11:38 Pulse Ox 93 09/23/23 11:38 O2 Del Method Room Air 09/23/23 11:38 O2 Flow Rate 3 09/23/23 08:00 FiO2 3 09/15/23 19:39 09/22/23 09/23/23 09/23/23 22:59 06:59 14:59 Intake Total 420 / 1190 960 / 2150 720 / 720 Output Total 600 / 2100 1450 / 3550 Balance -180 / -910 -490 / -1400 720 / 720 Weight last 48 hrs Weight 107.19 kg Weight 108.182 kg Physical Exam 2 Narrative: General: AO x 2-3, slow to respond, HEENT: Normocephalic, atraumatic, EOMI, Cardio: Regular rate rhythm, normal S1-S2, Respiratory: Clear to auscultation bilaterally, mild ronchi at bases GI: Abdomen soft, nontender, bowel sounds + Extremities: 2+ pitting edema bilaterally all the way up to groin. multiple skin lesions and skin abrasions neck folds have drainage foul smelling drainage. several pressure injuries b/l pedal edema multiple yellow fluid filled blilsters all over shoulders and chest area, ruptured, draining yellow fluid and some bleeding Urinary Catheter Management: Barros: Cath Placed During This Visit: yes Reason for Continuing Indwelling Catheter: Acute Urinary Retention or Obstruction Urinary Catheter Date of Insertion: 09/13/23 Urinary Catheter Time of Insertion: 14:25 Data 09/23/23 05:24 09/23/23 05:24 A&P Assessment and plan (1) Systolic congestive heart failure: Last echocardiogram from June showed an EF of 2024% with global severe hypokinesia, moderate eccentric MR, mild TR. Strict input output charting, daily weights. Continue Barros catheterization. Fluid restriction to less than 1500 cc. Patient is overall around 22 L negative. Improved. Switch to Lasix 40 mg twice daily. Developed contraction alkalosis so for now continue with acetazolamide 5 mg oral daily for 1 more day. Repeat BMP in the morning. (2) Respiratory failure with hypercapnia: Resolving. Patient is on room air now. Present on admission most likely in setting of CHF exacerbation. Pneumonia ruled out on admission on CT chest. Oxygen supplementation keeping saturation over 88%. Patient does have a history of COPD. Pulmicort twice daily, DuoNebs every 6 hours. Patient would benefit with BiPAP nightly but he is noncompliant. (3) Hypertensive emergency: Blood pressure is better controlled now. Goal blood pressure less than 140/90 mmHg. Blood pressure slightly elevated. Increase amlodipine to 10 mg oral daily, switch to metoprolol 25 mg twice daily. If needed will restart home dose of hydralazine versus adding low-dose clonidine. (4) Urinary tract infection: Appreciate culture history. Patient has history of infection in the past from Enterococcus VRE, Staphylococcus, pansensitive E. coli. For now continue with broad-spectrum antibiotics. Urine culture currently growing ESBL Proteus. Wound culture growing MRSA. Continue with vancomycin and Zosyn to finish 7-day course. Last dose on 09/19. Qualifiers: Urinary tract infection type: acute pyelonephritis Qualified Code(s): N 10 - Acute pyelonephritis (5) Rash: Generalized rash. Sparing the face. Vesicular in nature in different stages. Patient having boils which is busting open. Could be drug reaction. Only medication to possibly cause reaction patient is hydralazine. Currently patient does not have hydralazine and the rash is not improving. Could be disseminated herpes.. Will check herpes simplex viral culture, VZV DNA PCR. Start on Valtrex 1 g twice daily. Cannot rule out Ecthyema gangrenosum. Patient is already on cover for Pseudomonas. (6) Sepsis: SIRS: Tachycardic, hypothermia, Leukocytosis on admission. Currently resolved. Source: Cellulitis, UTI End organ damage: Acute infectious encephalopathy, respiratory failure Patient did not receive full 30 mL/kg BW given concerns for congestive heart failure. Monitor blood pressures. Keep mean artery pressure 65 mmHg. Follow-up blood culture, urine culture. Check urine Legionella and bacterial antigen. Continue broad-spectrum antibiotics with vancomycin and Zosyn for now. Will de- escalate as per culture results. (7) Altered mental status: Resolved. Most likely in setting of sepsis and hypercapnia leading to respiratory acidosis. Aspiration precaution, fall precaution. Continue to monitor. Qualifiers: Altered mental status type: somnolence Qualified Code(s): R40.0 - Somnolence (8) Acute hyponatremia: Resolved. Most likely hypervolemic hyponatremia. Continue to monitor. (9) Pressure injury of deep tissue of sacral region: History of chronic sacral osteomyelitis and decubitus ulcer. Appreciate surgical recommendations. No plan for debridement for now. (10) Sacral decubitus ulcer, stage IV: (11) Multiple sclerosis: (12) Respiratory acidosis: Plan Nonsustained V. tach: Overnight. Asymptomatic. Monitor electrolytes. Keep potassium around 4, magnesium around 2. Metoprolol 25 mg twice daily. CODE STATUS: Appreciate documentation. Documentation admission patient declined intubation. Patient does not want to be intubated or resuscitated though he is okay with the ICU admission, ACLS protocol medication and defibrillation if needed. Currently limited resuscitation. NPO. Protonix for PUD prophylaxis heparin 5000 every 12 hourly for DVT prophylaxis Plan for the day: Continue with oral Lasix 40 mg daily. Contraction alkalosis stable. Hold off on any further acetazolamide. Patient around 29 L negative. Continue with fluid restriction. (cut down lasix to 40 daily). Pt appears dehydrated today Hypercapnic respiratory failure seems to have resolved. Continue amlodipine to 5 (cut down from 10) mg daily and continue with home dose of metoprolol. Stopped clonidine. Not adding home dose of hydralazine given concerns for drug-induced rash. Will continue to monitor with goal blood pressure of less than 140/90 mmHg with mean over 65. Stop vanc zosyn. Pt may have bullous drug eruption given timeline of blisters and skin rash. discussed with dermatology in detail Will order mupirocin to open areas triamcinoline 0.1% to all red itchy areas. Leukocytosis may be explained by skin lesions. Patient has remained afebrile. Denies any new complaints. Blood cultures so far have remained negative. Urine cultures were Proteus mirabilis ESBL positive via wound culture positive for MRSA. There is possibility of new onset bullous pemphigoid. May have to redo biopsy to get into correct medium. Will talk to lab if we have it. . Repositioning in bed given chronic sacral osteomyelitis. Will talk to gen surg for re-evaluation. Continue with oral Valtrex 1 g twice daily. Monitor renal functions. Herpes simplex viral culture and VZV DNA PCR sent yesterday. Airborne precautions till disseminated herpes is ruled out. - continue to hospitalize for further care and monitoring - place on solu medrol 60 iv bid x3 days then start taper. Discharge plan: Given multiple readmissions patient would benefit from SNF placement though patient has been declining on this on on previous admissions. Family is agreeable for home meds for now. Attestations 2 Medical Necessity Statement*: Requires further hospitalization for management of significant rash while disseminated herpes is ruled out in a patient who was initially admitted for altered mental status in setting of hypercapnic respiratory failure from congestive heart failure, Proteus ESBL UTI in a patient with chronic sacral osteomyelitis Diagnoses Systolic congestive heart failure I50.20 Respiratory failure with hypercapnia J96.92 Hypertensive emergency I16.1 Urinary tract infection N10 Urinary tract infection type: acute pyelonephritis Rash R21 Sepsis A41.9 Altered mental status R40.0 Altered mental status type: somnolence Acute hyponatremia E87.1 Pressure injury of deep tissue of sacral region L89.156 Sacral decubitus ulcer, stage IV L89.154 Multiple sclerosis G35 Respiratory acidosis E87.29
[2023-09-23 16:44] LABS: Glucose Point of Care 291 mg/dL (70-110)
[2023-09-23] MEDS: triamcinolone 0.1% cream 15 gm 1 APPLIC TOPICAL (17:16)
[2023-09-23] MEDS: mupirocin oint 22 gm 1 APPLIC TOPICAL ×2 (17:16→19:28)
[2023-09-23] MEDS: tamsulosin 0.4 mg Capsule PO (17:16)
[2023-09-23] MEDS: atorvastatin 40 mg Tablet PO (17:16)
[2023-09-23 20:39] LABS: Glucose Point of Care 283 mg/dL (70-110)
[2023-09-24] VITALS: BP 112/62; PULSE 80; RESP 19; TEMP 37; O2SAT 91
[2023-09-24 05:25] LABS: Basophils % 0.1 %; Hematocrit 35.4 % (37-53); Lymphocytes # 0.7 10^3/uL (0.8-4.8); Lymphocytes % 4.6 %; Mean Corpuscular HGB Conc 29.7 g/dL (30-55); Mean Corpuscular Hemoglobin 23.1 pg (27-33); Mean Corpuscular Volume 77.8 fl (82-101); Mean Platelet Volume 10.3 fL (7.4-10.4); Monocytes # 0.7 10^3/uL (0.2-0.9); Monocytes % 4.7 %; Neutrophils # 13.72 10^3/uL (1.8-7.7); Neutrophils % 89.9 %; Nucleated Red Blood Cells % 0 %; Platelet Count 361 10^3/cmm (157-399); Red Blood Count 4.55 10^6/uL (3.85-5.65); Red Cell Distribution Width 21.7 % (12.1-15.1); White Blood Count 15.26 10^3/uL (3.29-11.43)
--- NOTE | 2023-09-24 05:38 | PC.NURSE ---
Complete bed bath and linen change completed. Dressing change to right chest (gauze and coverderm) and sacrum (optifoam) due to both being saturated. Barrier cream to buttocks. PICC dressing changed. Telfa placed to open area of skin above PICC line to prevent further tearing of skin from PICC dressing.
[2023-09-24 05:48] VITALS: BP 120/62; PULSE 80; RESP 18; TEMP 37; O2SAT 92
[2023-09-24 05:48] LABS: Anion Gap 16.1 (5-19); Blood Urea Nitrogen 65 mg/dL (8-23); Calcium 8.4 mg/dL (8.5-10.5); Carbon Dioxide 25 mmol/L (22-29); Chloride 101 mmol/L (98-107); Glomerular Filtration Rate 43.1 mL/min (90-130); Glucose 232 mg/dL (65-115); Osmolality Calculated 312 mOsm/kg (285-295); Potassium 4.1 mmol/L (3.5-5.1); Sodium 138 mmol/L (136-145)
[2023-09-24] MEDS: clopidogrel 75 mg Tablet PO (06:01)
[2023-09-24] MEDS: heparin 5,000 unit/mL INJ 1 mL 5000 UNIT SUBCUT ×2 (06:01→19:25)
[2023-09-24 08:02] LABS: Glucose Point of Care 308 mg/dL (70-110)
[2023-09-24 08:37] VITALS: BP 155/76; PULSE 88; RESP 18; TEMP 36.9; O2SAT 93
[2023-09-24] MEDS: metoprolol tartrate 25 mg Tablet PO ×2 (09:53→21:24)
[2023-09-24] MEDS: amlodipine 5 mg Tablet PO (09:53)
[2023-09-24] MEDS: valACYclovir 1,000 mg Tablet 1000 MG PO ×2 (09:53→19:25)
[2023-09-24] MEDS: aspirin 81 mg EC Tablet PO (09:53)
[2023-09-24] MEDS: FUROsemide 40 mg Tablet PO (09:53)
[2023-09-24] MEDS: mupirocin oint 22 gm 1 APPLIC TOPICAL ×3 (09:53→21:24)
[2023-09-24] MEDS: triamcinolone 0.1% cream 15 gm 1 APPLIC TOPICAL ×2 (09:54→19:26)
[2023-09-24] MEDS: nystatin powder 15 gm Btl 1 APPLIC TOPICAL ×2 (09:54→19:26)
[2023-09-24] MEDS: pantoprazole 40 mg SDV IVP (10:48)
[2023-09-24] MEDS: methylPREDNISolone sod succ 125 mg/2 mL INJ 60 MG IVP ×2 (10:48→21:24)
[2023-09-24 11:52] LABS: Glucose Point of Care 298 mg/dL (70-110)
--- NOTE | 2023-09-24 11:56 | P.PN_ITS ---
Subjective 2 Subjective: Seen this morning. No acute events overnight. White count down to 15,000 this morning. Creatinine 1.6. Patient 30 L negative. Vitals/I&O/Wt Last Vital Signs Temp 98.4 F 09/24/23 08:37 Pulse 88 09/24/23 08:37 Resp 18 09/24/23 08:37 BP 155/76 09/24/23 08:37 Pulse Ox 93 09/24/23 08:37 O2 Del Method Room Air 09/24/23 09:49 O2 Flow Rate 3 09/24/23 08:00 FiO2 3 09/15/23 19:39 09/23/23 09/24/23 09/24/23 22:59 06:59 14:59 Intake Total 600 / 1320 920 / 2240 360 / 360 Output Total 1700 / 1700 1250 / 2950 Balance -1100 / -380 -330 / -710 360 / 360 Weight last 48 hrs Weight 107.19 kg Weight 107.19 kg Physical Exam 2 Narrative: General: AO x 2-3, slow to respond, HEENT: Normocephalic, atraumatic, EOMI, Cardio: Regular rate rhythm, normal S1-S2, Respiratory: Clear to auscultation bilaterally, mild ronchi at bases GI: Abdomen soft, nontender, bowel sounds + Extremities: 2+ pitting edema bilaterally all the way up to groin. multiple skin lesions and skin abrasions neck folds have drainage foul smelling drainage. several pressure injuries b/l pedal edema multiple open wounds on the body with some crusting over. Urinary Catheter Management: Barros: Cath Placed During This Visit: yes Reason for Continuing Indwelling Catheter: Acute Urinary Retention or Obstruction Urinary Catheter Date of Insertion: 09/13/23 Urinary Catheter Time of Insertion: 14:25 Data 09/24/23 04:58 09/24/23 04:58 A&P Assessment and plan (1) Systolic congestive heart failure: Last echocardiogram from June showed an EF of 2024% with global severe hypokinesia, moderate eccentric MR, mild TR. Strict input output charting, daily weights. Continue Barros catheterization. Fluid restriction to less than 1500 cc. Patient is overall around 22 L negative. Improved. Switch to Lasix 40 mg twice daily. Developed contraction alkalosis so for now continue with acetazolamide 5 mg oral daily for 1 more day. Repeat BMP in the morning. (2) Respiratory failure with hypercapnia: Resolving. Patient is on room air now. Present on admission most likely in setting of CHF exacerbation. Pneumonia ruled out on admission on CT chest. Oxygen supplementation keeping saturation over 88%. Patient does have a history of COPD. Pulmicort twice daily, DuoNebs every 6 hours. Patient would benefit with BiPAP nightly but he is noncompliant. (3) Hypertensive emergency: Blood pressure is better controlled now. Goal blood pressure less than 140/90 mmHg. Blood pressure slightly elevated. Increase amlodipine to 10 mg oral daily, switch to metoprolol 25 mg twice daily. If needed will restart home dose of hydralazine versus adding low-dose clonidine. (4) Urinary tract infection: Appreciate culture history. Patient has history of infection in the past from Enterococcus VRE, Staphylococcus, pansensitive E. coli. For now continue with broad-spectrum antibiotics. Urine culture currently growing ESBL Proteus. Wound culture growing MRSA. Continue with vancomycin and Zosyn to finish 7-day course. Last dose on 09/19. Qualifiers: Urinary tract infection type: acute pyelonephritis Qualified Code(s): N 10 - Acute pyelonephritis (5) Rash: Generalized rash. Sparing the face. Vesicular in nature in different stages. Patient having boils which is busting open. Could be drug reaction. Only medication to possibly cause reaction patient is hydralazine. Currently patient does not have hydralazine and the rash is not improving. Could be disseminated herpes.. Will check herpes simplex viral culture, VZV DNA PCR. Start on Valtrex 1 g twice daily. Cannot rule out Ecthyema gangrenosum. Patient is already on cover for Pseudomonas. (6) Sepsis: SIRS: Tachycardic, hypothermia, Leukocytosis on admission. Currently resolved. Source: Cellulitis, UTI End organ damage: Acute infectious encephalopathy, respiratory failure Patient did not receive full 30 mL/kg BW given concerns for congestive heart failure. Monitor blood pressures. Keep mean artery pressure 65 mmHg. Follow-up blood culture, urine culture. Check urine Legionella and bacterial antigen. Continue broad-spectrum antibiotics with vancomycin and Zosyn for now. Will de- escalate as per culture results. (7) Altered mental status: Resolved. Most likely in setting of sepsis and hypercapnia leading to respiratory acidosis. Aspiration precaution, fall precaution. Continue to monitor. Qualifiers: Altered mental status type: somnolence Qualified Code(s): R40.0 - Somnolence (8) Acute hyponatremia: Resolved. Most likely hypervolemic hyponatremia. Continue to monitor. (9) Pressure injury of deep tissue of sacral region: History of chronic sacral osteomyelitis and decubitus ulcer. Appreciate surgical recommendations. No plan for debridement for now. (10) Sacral decubitus ulcer, stage IV: (11) Multiple sclerosis: (12) Respiratory acidosis: Plan Nonsustained V. tach: Overnight. Asymptomatic. Monitor electrolytes. Keep potassium around 4, magnesium around 2. Metoprolol 25 mg twice daily. CODE STATUS: Appreciate documentation. Documentation admission patient declined intubation. Patient does not want to be intubated or resuscitated though he is okay with the ICU admission, ACLS protocol medication and defibrillation if needed. Currently limited resuscitation. NPO. Protonix for PUD prophylaxis heparin 5000 every 12 hourly for DVT prophylaxis Plan for the day:09/23 Hold home Lasix today. Patient around 30 L negative. Continue with fluid restriction. Pt appears dehydrated today Hypercapnic respiratory failure seems to have resolved. Creatinine improving slightly. 1.6 this morning. Continue amlodipine to 5 (cut down from 10) mg daily and continue with home dose of metoprolol. Stopped clonidine. Not adding home dose of hydralazine given concerns for drug-induced rash. Will continue to monitor with goal blood pressure of less than 140/90 mmHg with mean over 65. Stop vanc zosyn. Pt may have bullous drug eruption given timeline of blisters and skin rash. discussed with dermatology in detail Continue mupirocin to open areas triamcinoline 0.1% to all red itchy areas. Leukocytosis may be explained by skin lesions. Patient has remained afebrile. Denies any new complaints. Blood cultures so far have remained negative. Urine cultures were Proteus mirabilis ESBL positive via wound culture positive for MRSA. There is possibility of new onset bullous pemphigoid. Repositioning in bed given chronic sacral osteomyelitis. Will talk to gen surg for re-evaluation. Continue with oral Valtrex 1 g twice daily. Monitor renal functions. Herpes simplex viral culture and VZV DNA PCR sent yesterday. Airborne precautions till disseminated herpes is ruled out. - continue to hospitalize for further care and monitoring - place on solu medrol 60 iv bid x3 days then start taper. End date 09/24. Discharge plan: Given multiple readmissions patient would benefit from SNF placement though patient has been declining on this on on previous admissions. Family is agreeable for home meds for now. Attestations 2 Medical Necessity Statement*: Requires further hospitalization for management of significant rash while disseminated herpes is ruled out in a patient who was initially admitted for altered mental status in setting of hypercapnic respiratory failure from congestive heart failure, Proteus ESBL UTI in a patient with chronic sacral osteomyelitis Diagnoses Systolic congestive heart failure I50.20 Respiratory failure with hypercapnia J96.92 Hypertensive emergency I16.1 Urinary tract infection N10 Urinary tract infection type: acute pyelonephritis Rash R21 Sepsis A41.9 Altered mental status R40.0 Altered mental status type: somnolence Acute hyponatremia E87.1 Pressure injury of deep tissue of sacral region L89.156 Sacral decubitus ulcer, stage IV L89.154 Multiple sclerosis G35 Respiratory acidosis E87.29
[2023-09-24 12:18] VITALS: BP 132/76; PULSE 86; RESP 18; TEMP 37.1; O2SAT 92
--- NOTE | 2023-09-24 15:13 | PC.SOCIAL ---
IMM updated IMM dated and copy given to patient and placed in chart
[2023-09-24 16:55] VITALS: BP 141/74; PULSE 91; RESP 17; TEMP 37.3; O2SAT 90
[2023-09-24 16:56] LABS: Glucose Point of Care 292 mg/dL (70-110)
[2023-09-24] MEDS: atorvastatin 40 mg Tablet PO (19:25)
[2023-09-24] MEDS: tamsulosin 0.4 mg Capsule PO (19:25)
[2023-09-24] MEDS: insulin lispro 100 unit/1 mL SUBCUT ×2 (19:26→21:23)
[2023-09-24 20:00] VITALS: BP 145/80; PULSE 86; RESP 18; TEMP 36.3; O2SAT 91
[2023-09-24 21:18] LABS: Glucose Point of Care 324 mg/dL (70-110)
--- NOTE | 2023-09-24 23:07 | PC.NURSE ---
Pt requested more Water and Juice. This nurse educated on fluid restriction and Why it would be beneficial for the patients health to follow. The patient states i refuse it i want some fucking Water . the patient has been uncompliant with fluid restriction, MD aware.
[2023-09-25] VITALS (8 sets, daily range): BP systolic 140–161; BP diastolic 76–87; PULSE 79–86; RESP 16–20; TEMP 36.4–36.5; O2SAT 92–99
[2023-09-25] MEDS: clopidogrel 75 mg Tablet PO (05:00)
[2023-09-25] MEDS: heparin 5,000 unit/mL INJ 1 mL 5000 UNIT SUBCUT (05:00)
[2023-09-25 06:33] LABS: Glucose Point of Care 280 mg/dL (70-110)
[2023-09-25 07:45] LABS: Basophils % 0.1 %; Lymphocytes # 0.7 10^3/uL (0.8-4.8); Mean Corpuscular Hemoglobin 23.2 pg (27-33); Mean Corpuscular Volume 77.4 fl (82-101); Mean Platelet Volume 9.7 fL (7.4-10.4); Monocytes # 0.7 10^3/uL (0.2-0.9); Monocytes % 4.7 %; Neutrophils # 12.34 10^3/uL (1.8-7.7); Neutrophils % 89.8 %; Nucleated Red Blood Cells % 0 %; Platelet Count 342 10^3/cmm (157-399); Red Blood Count 4.52 10^6/uL (3.85-5.65); Red Cell Distribution Width 21.6 % (12.1-15.1); White Blood Count 13.74 10^3/uL (3.29-11.43)
[2023-09-25 08:13] LABS: Blood Urea Nitrogen 73 mg/dL (8-23); Calcium 8.6 mg/dL (8.5-10.5); Carbon Dioxide 23 mmol/L (22-29); Chloride 101 mmol/L (98-107); Glomerular Filtration Rate 50.2 mL/min (90-130); Glucose 255 mg/dL (65-115); Magnesium 2.5 mg/dL (1.7-2.3); Osmolality Calculated 310 mOsm/kg (285-295); Sodium 135 mmol/L (136-145)
[2023-09-25] MEDS: insulin lispro 100 unit/1 mL SUBCUT ×4 (08:55→21:37)
[2023-09-25] MEDS: metoprolol tartrate 25 mg Tablet PO ×2 (08:55→21:38)
[2023-09-25] MEDS: aspirin 81 mg EC Tablet PO (08:55)
[2023-09-25] MEDS: amlodipine 5 mg Tablet PO (08:55)
[2023-09-25] MEDS: valACYclovir 1,000 mg Tablet 1000 MG PO ×2 (08:55→17:04)
[2023-09-25] MEDS: methylPREDNISolone sod succ 125 mg/2 mL INJ 60 MG IVP (08:55)
[2023-09-25] MEDS: triamcinolone 0.1% cream 15 gm 1 APPLIC TOPICAL ×2 (08:56→17:04)
[2023-09-25] MEDS: nystatin powder 15 gm Btl 1 APPLIC TOPICAL ×2 (08:56→17:09)
[2023-09-25] MEDS: pantoprazole 40 mg SDV IVP (08:56)
[2023-09-25] MEDS: mupirocin oint 22 gm 1 APPLIC TOPICAL ×3 (08:57→21:38)
--- NOTE | 2023-09-25 11:36 | PM.DCS ---
Discharge Providers Date of Admission: 09/13/23 15:25 Date of Discharge: September 25, 2023 Attending Provider at Admission: Jane Sargent MD Attending Provider at Discharge: Jane Sargent MD Primary Care Provider: AUGUSTINE Craig Diagnoses at Discharge Discharge Diagnosis (1) Systolic congestive heart failure: Status: Acute (2) Respiratory failure with hypercapnia: Status: Resolved (3) Hypertensive emergency: Status: Resolved (4) Urinary tract infection: Status: Resolved Qualifiers: Urinary tract infection type: acute pyelonephritis Qualified Code(s): N10 - Acute pyelonephritis (5) Rash: Status: Acute (6) Sepsis: Status: Resolved (7) Altered mental status: Status: Resolved Qualifiers: Altered mental status type: somnolence Qualified Code(s): R40.0 - Somnolence (8) Acute hyponatremia: Status: Resolved (9) Pressure injury of deep tissue of sacral region: Status: Acute (10) Sacral decubitus ulcer, stage IV: Status: Acute (11) Multiple sclerosis: Status: Inactive (12) Respiratory acidosis: Status: Resolved Reason for Visit Reason for Visit: AMS Brief History: Armando Coleman is a 68 year old male Armando Coleman is a 68 year old male With past medical history of cardiomyopathy, frequent falls, chronic wounds currently following up with wound care clinic, multiple sclerosis, neurogenic bladder self catheterizes, hyperlipidemia, hypertension, ischemic cardiomyopathy, history of NSTEMI, congestive heart failure presented to the hospital today with altered mental status. Patient is unable to provide any history at this time he is responsive to verbal stimuli. He has been altered for the last couple of days but has been able to refuse to go to the ER however now he is much more altered and therefore family called EMS to come get him. I am very familiar with this patient and he has been here multiple times with the same thing before. Patient is noncompliant and has a history of straight cath secondary to neurogenic bladder and has poor hygiene. On arrival to ER blood pressure 92/53, 15, 57, 95.7, saturating 92% on 3 L nasal cannula. WBC 16,000, hemoglobin 10.4, sodium 125, creatinine 1.5, potassium 5. Chest x-ray shows mild vascular interstitial prominence which may be chronic. Urinalysis positive for UTI, bacteria 2+, urine drug screen negative Hospital Course Hospital Course Patient was initially admitted for altered mental status found to have sepsis secondary to UTI with Proteus mirabilis ESBL. Patient completed a 7-day course. During hospitalization he was also found to be fluid overloaded secondary to heart failure exacerbation. His EF is 25%. He was diuresed with Lasix and has now been 29 L negative at discharge. For possible erythema gangrenosum he was given Zosyn x 7 days which also covers UTI. During hospitalization he was debrided by general surgery for his chronic sacral wound. This was reassessed at discharge and no further debridement was recommended. Patient does have extensive skin lesions all over his body with blisters which are fluid-filled. Discussed with dermatology and biopsy was obtained. He had a bullous drug reaction. All antibiotics were stopped and white count started trending down to 13,000. He started feeling better. Patient placed on a prednisone taper with initial prednisone 60 twice a day. This is a taper over weeks. Discussed with Dr. Castillo over the phone. Patient to see dermatology as an outpatient at discharge. On day of discharge I tried to discuss with patient again to consider going to residential since patient will require some assistance. He was alert oriented x 3 and said that he has a house that is fully paid for along with a truck that is fully paid for and his family is enjoying it. He states that if he goes to a residential even for 2 weeks for rehab his family will force him to stay there and he will able to go home again. He agrees he can sign out AMA however he states he does not care about his skin lesions and would like to go home. He clearly stated multiple times I do not care about what is going on with me and I just want to go home. He has been given mupirocin, triamcinolone to apply on his body. Furosemide 40 daily as needed. I did have a discussion with him and told him to take it daily for a few days at a time as right now he is in a negative balance despite not being on Lasix. And he is slightly dehydrated. Doxycycline was given as anti-inflammatory 100 daily as per dermatology recommendations. Patient is noncompliant and I am afraid he is at high risk of readmission. I believe this may be his second third or may be even fourth admission with the exact same presentation over the last 2 years. I have highly encouraged him to keep his dermatology appointment but I am unsure whether he will go at this point. He is to follow-up with primary care doctor as well. Wound care referral, general surgery follow-up was also given at discharge. Physical Exam Narrative: General: AO x 3 HEENT: Normocephalic, atraumatic, EOMI, Cardio: Regular rate rhythm, normal S1-S2, Respiratory: Clear to auscultation bilaterally, mild ronchi at bases GI: Abdomen soft, nontender, bowel sounds + Extremities: No edema noted, wrinkling of skin noted. Dry skin with multiple lesions. multiple skin lesions and skin abrasions neck folds have drainage foul smelling drainage. several pressure injuries No edema noted. multiple open wounds on the body with some crusting over. Urinary Catheter Management: Liu: Cath Placed During This Visit: yes Reason for Continuing Indwelling Catheter: Other Urinary Catheter Date of Insertion: 09/13/23 Urinary Catheter Time of Insertion: 14:25 Discharge Data Studies Completed and Pending Completed Studies During Hospitalization Category [place] [id number] Urgent Cat Scan 09/14/23 10:[address] head wo con* [id number] Urgent Cat Scan 09/14/23 16:37 Completed CXRP [XR chest 1V portable [id number]] Routine Exams 09/13/23 17:28 Completed XR chest 1V portable [id number] Routine Exams 09/15/23 11:44 Completed XR chest 1V portable [id number] Stat Exams 09/13/23 13:38 Completed Pending at discharge Category Date Time Status Herpes Simplex Virus Culture Routine Lab 09/20/23 16:24 Received Miscellaneous Test Routine Lab 09/20/23 16:24 Received Sputum Culture and Gram Stain Stat Lab 09/13/23 15:43 Uncollected Radiology Impressions Chest/Abdomen/Pelvis CT 09/14/23 10:30 IMPRESSION: 1. Upper lung predominant reticular and ground-glass opacity. No significant bronchial wall thickening. Possible infection or interstitial edema. 2. Moderate right pleural effusion. 3. Marked cardiac enlargement. 4. Satisfactory right PICC line position. 5. Nonspecific bilateral axillary lymphadenopathy. 6. Tracheobronchomalacia. 7. Incidental findings above. IMPRESSION: 1. Possible neoplastic lymphadenopathy, stable since 07/07/2023. Bilateral inguinal and pelvic lymphadenopathy. Numerous mildly enlarged retroperitoneal lymph nodes. 2. Anasarca is progressive since 07/07/2023. 3. Moderate simple ascites is progressive since 07/07/2023. 4. Incidental findings above. Head CT 09/14/23 16:37 IMPRESSION: 1. No acute intracranial pathology. 2. Small moderate left mastoid effusion, mildly increased compared to prior study. 3. Senescent changes. Chest X-Ray 09/15/23 11:44 IMPRESSION: 1. There is prominence of the central vessels and interstitial markings suggestive of increased volume status, pulmonary hypertension with the associated prominence of the slick and azygous venous silhouette margins. Consider echocardiography. 2. There is some patchy atelectatic consolidation of the lung bases suggestive of some early inflammation. No interval lobar type consolidation or cardiac decompensation is appreciated. Laboratory Results WBC 13.74 10^3/uL (3.29-11.43) H 09/25/23 07:24 RBC 4.52 10^6/uL (3.85-5.65) 09/25/23 07:24 Hgb 10.50 g/dL (11.27-16.99) L 09/25/23 07:24 Hct 35.0 % (37-53) L 09/25/23 07:24 MCV 77.4 fl (82-101) L 09/25/23 07:24 MCH 23.2 pg (27-33) L 09/25/23 07:24 MCHC 30.0 g/dL (30-55) 09/25/23 07:24 RDW 21.6 % (12.1-15.1) H 09/25/23 07:24 Plt Count 342 10^3/cmm (157-399) 09/25/23 07:24 MPV 9.7 fL (7.4-10.4) 09/25/23 07:24 Neut % (Auto) 89.8 % 09/25/23 07:24 Lymph % (Auto) 5.0 % 09/25/23 07:24 Kinney % (Auto) 4.7 % 09/25/23 07:24 Eos % (Auto) 0.0 % 09/25/23 07:24 Baso % (Auto) 0.1 % 09/25/23 07:24 Neut # (Auto) 12.34 10^3/uL (1.8-7.7) H 09/25/23 07:24 Lymph # (Auto) 0.7 10^3/uL (0.8-4.8) L 09/25/23 07:24 Kinney # (Auto) 0.7 10^3/uL (0.2-0.9) 09/25/23 07:24 Eos # (Auto) 0.0 10^3/uL (0.0-0.8) 09/25/23 07:24 Baso # (Auto) 0.0 10^3/uL (0.0-0.1) 09/25/23 07:24 Nucleated RBC % (auto) 0 % 09/25/23 07:24 Nucleated RBCs # 0.0 /100WBC 09/25/23 07:24 ESR 65 mm/hr (0-10) H 09/17/23 03:52 PT 18.60 SECONDS (12.1-14.9) H 09/13/23 13:56 INR 1.49 (0.8-1.2) H 09/13/23 13:56 Specimen Type Arterial 09/16/23 03:40 Sample Site Radial, right 09/16/23 03:40 ABG pH 7.35 (7.35-7.45) 09/16/23 03:40 ABG pCO2 48.6 mmHg (35-45) H 09/16/23 03:40 ABG pO2 68.0 mmHg (80.0-100.0) L 09/16/23 03:40 ABG PO2/FiO2 Ratio 0 09/15/23 12:00 ABG HCO3 26.5 mmol/L (22-26) H 09/16/23 03:40 ABG O2 Saturation 93.4 09/16/23 03:40 ABG Base Excess 0.3 mmol/L (-2.0-2.0) 09/16/23 03:40 Adonis Test Pos 09/16/23 03:40 A-a O2 Gradient 2.9 mmHg (5-10) L 09/16/23 03:40 Hematocrit 33.2 % (42-52) L 09/16/23 03:40 Hgb O2 Saturation 92.2 % (95-100) L 09/16/23 03:40 Carboxyhemoglobin 1.6 %THgb (0.4-20.1) 09/16/23 03:40 Methemoglobin < 0.0 % (0.4-1.5) L 09/16/23 03:40 Total Hemoglobin 10.8 g/dL (14-18) L 09/16/23 03:40 Sodium 140.0 mmol/L (131-143) 09/16/23 03:40 Potassium 4.0 mmol/L (3.5-5.0) 09/16/23 03:40 Glucose 122.0 mg/dL (70-115) H 09/16/23 03:40 Ionized Calcium 1.1 mmol/L (1.1-1.4) 09/16/23 03:40 O2 Delivery Device Nc 09/16/23 03:40 O2 Liters/Min 3.0 % 09/16/23 03:40 FiO2 32.0 % 09/15/23 12:00 Sound Truck Operator ID Guillermo 09/16/23 03:40 Sodium 135 mmol/L (136-145) L 09/25/23 07:24 Potassium 4.0 mmol/L (3.5-5.1) 09/25/23 07:24 Chloride 101 mmol/L (98-107) 09/25/23 07:24 Carbon Dioxide 23 mmol/L (22-29) 09/25/23 07:24 Anion Gap 15.0 (5-19) 09/25/23 07:24 BUN 73 mg/dL (8-23) H 09/25/23 07:24 Creatinine 1.4 mg/dL (0.7-1.2) H 09/25/23 07:24 GFR Calculation 50.2 mL/min (90-130) L 09/25/23 07:24 Glucose 255 mg/dL (65-115) H 09/25/23 07:24 POC Glucose 280 mg/dL (70-110) H 09/25/23 06:28 Serum Osmolality 277 mOsm/kg (278-305) L 09/13/23 16:50 Calculated Osmolality 310 mOsm/kg (285-295) H 09/25/23 07:24 Lactic Acid 2.2 mmol/L (0.5-2.2) 09/13/23 13:56 Lactic Acid (Sepsis) 1.7 mmol/L (0.5-2.2) 09/13/23 16:50 Lactate 1.3 mmol/L (0.5-2.2) 09/14/23 18:39 Calcium 8.6 mg/dL (8.5-10.5) 09/25/23 07:24 Phosphorus 4.9 mg/dL (2.5-4.5) H 09/13/23 21:59 Magnesium 2.5 mg/dL (1.7-2.3) H 09/25/23 07:24 Iron 16 ug/dL (59-158) L 09/15/23 05:41 TIBC 269 mcg/dl 09/15/23 05:41 % Saturation 5.9 % (20-50) L 09/15/23 05:41 Unsat Iron Binding 253 ug/dL (112-347) 09/15/23 05:41 Total Bilirubin 0.4 mg/dL (0.15-1.2) 09/22/23 02:44 AST 8 U/L (0-40) 09/22/23 02:44 ALT < 5 U/L (0-41) 09/22/23 02:44 Alkaline Phosphatase 93 U/L (40-130) 09/22/23 02:44 Ammonia 39 umol/L (16-60) 09/15/23 15:08 Troponin T Baseline 88 ng/L (0-15) H 09/13/23 13:56 Troponin T 120 Minute 84.14 ng/L (0-15) H 09/13/23 16:50 Delta Troponin T -3.86 ABS# (0-10) L 09/13/23 16:50 Troponin T Hi Sens 6Hr 76.06 ng/L (0-15) H 09/13/23 20:24 Troponin T Hi Sens 6Hr Delta -11.94 ng/L (0-12) L 09/13/23 20:24 C-Reactive Protein 127.1 mg/L (0.0-4.9) H 09/17/23 03:52 NT-Pro-B Natriuret Pep 64680 pg/mL (0-125) H 09/13/23 13:56 Total Protein 6.9 g/dL (6.6-8.7) 09/22/23 02:44 Albumin 2.6 g/dL (3.5-5.2) L 09/22/23 02:44 Globulin 4.3 g/dL (1.3-4.6) 09/22/23 02:44 Vitamin B12 1395 pg/mL (232-1245) H 09/15/23 05:41 Procalcitonin 0.86 ng/mL (0-0.5) H 09/13/23 13:56 Procalcitonin 0.88 ng/mL (0-0.5) H 09/13/23 13:56 TSH 1.72 uIU/mL (0.27-4.20) 09/14/23 07:01 Random Cortisol 18.23 ug/dL (2.47-19.5) 09/14/23 07:01 Urine Color Yellow (Yellow) 09/13/23 14:23 Urine Appearance Cloudy (CLEAR) A 09/13/23 14:23 Urine pH 7 (5-7) 09/13/23 14:23 Ur Specific Shidler 1.015 (1.005-1.030) 09/13/23 14:23 Urine Protein 2+ (Negative) H 09/13/23 14:23 Urine Glucose (UA) Norm (Normal) 09/13/23 14:23 Urine Ketones Negative (Negative) 09/13/23 14:23 Urine Blood 3+ (Negative) H 09/13/23 14:23 Urine Nitrate Positive (Negative) H 09/13/23 14:23 Urine Bilirubin Neg (Negative) 09/13/23 14:23 Urine Urobilinogen 4 mg/dL (Negative) H 09/13/23 14:23 Ur Leukocyte Esterase 2+ (Negative) H 09/13/23 14:23 Urine RBC 5-10 /hpf (0-2) H 09/13/23 14:23 Urine WBC Too numerous to cnt /hpf (0-5) H 09/13/23 14:23 Ur Squamous Epith Cells None /hpf (0-5) 09/13/23 14:23 Amorphous Sediment Not Reportable 09/13/23 14:23 Urine Bacteria 2+ /hpf (NONE) H 09/13/23 14:23 Urine Osmolality 505 mOsm/kg (50-1200) 09/13/23 14:23 Ur Random Sodium 39 mmol/L 09/13/23 14:23 Vancomycin Trough 14.5 ug/mL (10-15) 09/22/23 19:50 Random Vancomycin 23.6 ug/mL (20.0-40.0) 09/21/23 05:05 Urine Opiates Screen Negative ng/mL (Negative) 09/13/23 14:23 Ur Barbiturates Screen Negative ng/mL (Negative) 09/13/23 14:23 Ur Phencyclidine Scrn Negative ng/mL (Negative) 09/13/23 14:23 Ur Amphetamines Screen Negative ng/mL (Negative) 09/13/23 14:23 U Benzodiazepines Scrn Negative ng/mL (Negative) 09/13/23 14:23 Urine Cocaine Screen Negative ng/mL (Negative) 09/13/23 14:23 U Marijuana (THC) Screen Negative ng/mL (Negative) 09/13/23 14:23 Adenovirus (PCR) Not detected (NOT DETECT) 09/13/23 14:23 C. pneumoniae DNA (PCR) Not detected (NOT DETECT) 09/13/23 14:23 Coronavirus 229E (PCR) Not detected (NOT DETECT) 09/13/23 14:23 Hepatitis A IgM Ab Non-reactive (Nonreactive) 09/20/23 16:42 Hep Bs Antigen Non-reactive (Nonreactive) 09/20/23 16:42 Hep Bs Antibody < 3.5 (11.5-1000) L 09/20/23 16:42 Hep B Core Total Ab Non-reactive (Nonreactive) 09/20/23 16:42 Hepatitis C Antibody Non-reactive (Nonreactive) 09/20/23 16:42 HIV 1&2 Ab & HIV 1 Ag Non-reactive (Non-Reactiv) 09/20/23 16:42 HIV 1&2 Antibody Non-reactive (Non-Reactiv) 09/20/23 16:42 Human Metapneumovir PCR Not detected (NOT DETECT) 09/13/23 14:23 Influenza A (H1) PCR Not detected (NOT DETECT) 09/13/23 14:23 Influ A (H1/09) PCR Not detected (NOT DETECT) 09/13/23 14:23 Influenza A (H3) PCR Not detected (NOT DETECT) 09/13/23 14:23 Influenza Type A (PCR) Not detected (NOT DETECT) 09/13/23 14:23 Influenza Type B (PCR) Not detected (NOT DETECT) 09/13/23 14:23 M. pneumoniae (PCR) Not detected (NOT DETECT) 09/13/23 14:23 Parainfluenza 1 (PCR) Not detected (NOT DETECT) 09/13/23 14:23 Parainfluenza 2 (PCR) Not detected (NOT DETECT) 09/13/23 14:23 Parainfluenza 3 (PCR) Not detected (NOT DETECT) 09/13/23 14:23 Parainfluenza 4 (PCR) Not detected (NOT DETECT) 09/13/23 14:23 RSV Type A (PCR) Not detected (NOT DETECT) 09/13/23 14:23 RSV Type B (PCR) Not detected (NOT DETECT) 09/13/23 14:23 Entero/Rhino (PCR) Not detected (NOT DETECT) 09/13/23 14:23 SARS-CoV-2 (PCR) Not detected (NOT DETECT) 09/13/23 14:23 Vitals Last Vital Signs Temp 97.6 F 09/25/23 08:39 Pulse 81 09/25/23 08:39 Resp 18 09/25/23 08:39 BP 153/82 09/25/23 08:39 Pulse Ox 99 09/25/23 08:39 O2 Del Method Room Air 09/25/23 08:39 O2 Flow Rate 3 09/24/23 08:00 FiO2 3 09/15/23 19:39 Discharge Plan Discharge Patient Disposition: Home Condition: Stable Prescriptions: New amlodipine 5 mg Tablet 5 mg PO DAILY Qty: 30 0RF triamcinolone acetonide 0.1 % Cream 1 applic topical BID 14 Days Qty: 100 0RF mupirocin 2 % Ointment 1 applic topical TID 14 Days Qty: 100 0RF Nystop 100,000 unit/gram Powder 1 applic topical BID 14 Days Qty: 100 0RF prednisone 10 mg tablet See Rx Instructions .ROUTE .COMPLEX Qty: 92 0RF Rx Instructions: 60 mg daily x 4D 50 mg daily x 4d 40 mg daily x 4d 30 mg daily x 3d 20 mg daily x 3d 10 mg daily x 3d 5 mg daily x 3d, then stopped doxycycline hyclate 100 mg tablet 100 mg PO DAILY 7 Days Qty: 7 0RF Continued nitroglycerin 0.4 mg tablet, sublingual 0.4 mg SUBLINGUAL Q5M PRN (Reason: chest pain) Qty: 30 4RF Rx Instructions: until response; do not exceed 3 doses per episode aspirin 81 mg Tablet,Delayed Release (Dr/Ec) 81 mg PO DAILY Qty: 30 0RF tizanidine 4 mg tablet 2 mg PO QID PRN (Reason: Muscle Spasm) furosemide 40 mg tablet 40 mg PO DAILY PRN (Reason: Edema) atorvastatin 40 mg tablet 40 mg PO QPM clopidogrel 75 mg tablet 75 mg PO QAM Qty: 90 0RF acetaminophen 325 mg Tablet 650 mg PO QID PRN (Reason: Pain) tamsulosin 0.4 mg capsule 0.4 mg PO QPM lisinopril 10 mg tablet 10 mg PO DAILY metoprolol succinate 25 mg tablet extended release 24 hr 25 mg PO DAILY Discontinued carvedilol 12.5 mg tablet 6.25 mg PO BID hydralazine 25 mg tablet 25 mg PO BID Discharge Orders: Discharge Order (Routine); Ordered 09/25/23 Ordered By: Jane Sargent Referrals: Carlitos Shetty DO [Physician] - 10/15/23 8:55 am () Yanet Castillo DO [Physician] - 1 week (We have notified your physician's clinic of the need for a follow-up appointment to be scheduled. If you have not heard from them within the next 2 business days, please call them directly. ) Raymon Min FNP [Primary Care Provider] - 09/29/23 3:00 pm [facility], [Staff Physician] - 09/30/23 9:00 am () Discharge Diet: Cardiac Discharge Activity: Increase activity as tolerated Patient Instructions: Mupirocin (On the skin), Doxycycline (By mouth), Prednisone (By mouth), Triamcinolone (On the skin), Amlodipine (By mouth), Altered Mental Status (ED), Opioid Safety Activity Restrictions/Additional Instructions: Apply mupirocin to all open skin lesions as directed Apply triamcinolone to itchy red areas Continue liu catheter and replace every 30 days at PCP office Discharge Attestations Time Spent in Discharge Care*: greater than 30 min Status at Discharge: Cognitive status at discharge: cognitively intact, Behavioral status at discharge: cooperative and can be uncooperative, Quality Metrics Clinical Quality Measures [ No reported AMI, CVA or VTE this stay] Coding Level of Care Code Acute Code for Chg Fwd Diagnoses Systolic congestive heart failure I50.20 Respiratory failure with hypercapnia J96.92 Hypertensive emergency I16.1 Urinary tract infection N10 Urinary tract infection type: acute pyelonephritis Rash R21 Sepsis A41.9 Altered mental status R40.0 Altered mental status type: somnolence Acute hyponatremia E87.1 Pressure injury of deep tissue of sacral region L89.156 Sacral decubitus ulcer, stage IV L89.154 Multiple sclerosis G35 Respiratory acidosis E87.29
[2023-09-25 11:50] LABS: Glucose Point of Care 340 mg/dL (70-110)
--- NOTE | 2023-09-25 14:09 | P.PN_ITS ---
Subjective 2 Subjective: Patient seen and examined. Biopsy site is no longer bleeding Vitals/I&O/Wt Last Vital Signs Temp 97.7 F 09/25/23 12:23 Pulse 80 09/25/23 12:23 Resp 18 09/25/23 12:23 BP 161/87 09/25/23 12:23 Pulse Ox 96 09/25/23 12:23 O2 Del Method Room Air 09/25/23 12:23 O2 Flow Rate 3 09/24/23 08:00 FiO2 3 09/15/23 19:39 09/24/23 09/25/23 09/25/23 22:59 06:59 14:59 Intake Total 1000 / 1840 1000 / 2840 1160 / 1160 Output Total 1400 / 3000 Balance 1000 / 240 -400 / -160 1160 / 1160 Weight last 48 hrs Weight 236 lb 5 oz Weight 236 lb 5 oz Physical Exam 2 Narrative: General: No acute distress, awake alert and oriented x 3 Skin: There is a vesicular rash across his entire body Urinary Catheter Management: Barros: Cath Placed During This Visit: yes Reason for Continuing Indwelling Catheter: Other Urinary Catheter Date of Insertion: 09/13/23 Urinary Catheter Time of Insertion: 14:25 Data 09/25/23 07:24 09/25/23 07:24 A&P Assessment and plan (1) Rash: Plan Keep biopsy site clean and dry Await results of pathology No further surgical intervention Attestations 2 Medical Necessity Statement*: Per primary Coding Level of Care Code 94018 Diagnoses Rash R21
--- NOTE | 2023-09-25 14:17 | PC.NURSE ---
Discharge pending medicaid transport/EMS.
[2023-09-25 16:26] LABS: Glucose Point of Care 368 mg/dL (70-110)
[2023-09-25] MEDS: atorvastatin 40 mg Tablet PO (17:04)
[2023-09-25] MEDS: tamsulosin 0.4 mg Capsule PO (17:05)
[2023-09-25 21:12] LABS: Glucose Point of Care 323 mg/dL (70-110)
== END 2023-09-25 23:15 | disposition home or self-care (01) | DRG 871 ==
LOC: ER 15:25 → ICU 15:45 → MEDSURG 09-17 20:26
PROVIDERS: Student in an Organized Health Care Education/Training Program; Admitting Provider Internal Medicine; Emergency Provider Emergency Medicine; PCP Nurse Practitioner Family; Visit Provider Internal Medicine
DX: A41.9 Sepsis, unspecified organism (principal); G93.41 Metabolic encephalopathy; L89.154 Pressure ulcer of sacral region, stage 4; I50.33 Acute on chronic diastolic (congestive) heart failure; J96.92 Respiratory failure, unspecified with hypercapnia; J96.91 Respiratory failure, unspecified with hypoxia; I13.0 Hypertensive heart and chronic kidney disease with heart failure and stage 1 through stage 4 chronic kidney disease, or unspecified chronic kidney disease; L03.116 Cellulitis of left lower limb; L03.115 Cellulitis of right lower limb; M86.68 Other chronic osteomyelitis, other site; I47.20 Ventricular tachycardia, unspecified; Z16.12 Extended spectrum beta lactamase (ESBL) resistance; E87.29 Other acidosis; E87.1 Hypo-osmolality and hyponatremia; I16.1 Hypertensive emergency; N10 Acute pyelonephritis; R65.20 Severe sepsis without septic shock; Z11.52 Encounter for screening for COVID-19; I25.5 Ischemic cardiomyopathy; Z91.81 History of falling; G35 Multiple sclerosis; N31.9 Neuromuscular dysfunction of bladder, unspecified; E78.5 Hyperlipidemia, unspecified; N18.9 Chronic kidney disease, unspecified; F17.210 Nicotine dependence, cigarettes, uncomplicated; I25.10 Atherosclerotic heart disease of native coronary artery without angina pectoris; R68.0 Hypothermia, not associated with low environmental temperature; R21 Rash and other nonspecific skin eruption; B95.62 Methicillin resistant Staphylococcus aureus infection as the cause of diseases classified elsewhere; B96.4 Proteus (mirabilis) (morganii) as the cause of diseases classified elsewhere; G47.30 Sleep apnea, unspecified; Z79.82 Long term (current) use of aspirin; Z79.02 Long term (current) use of antithrombotics/antiplatelets; Z95.5 Presence of coronary angioplasty implant and graft; I25.2 Old myocardial infarction
CPT/HCPCS: 36415; 36416; 36573; 36592; 36600; 51702; 70450; 71045; 71250; 74176; 80048; 80051; 80053; 80069; 80202; 80306; 81001; 82140; 82330; 82533; 82607; 82805; 82962; 83540; 83550; 83605; 83735; 83880; 83930; 83935; 84145; 84300; 84443; 84484; 85025; 85610; 85651; 86140; 86403; 86705; 86706; 86709; 86803; 87040; 87070; 87075; 87077; 87086; 87186; 87205; 87255; 87340; 87449; 87486; 87581; 87633; 87806; 88305; 92610; 93005; 94640; 94660; 96365; 96372; 96376; 97167; 99285; C1751; C9113; J0696; J1630; J1644; J1815; J1940; J2270; J2543; J2919; J3370; J3475; J7030; J7050; J7626

== ENCOUNTER 2023-10-10 14:42 | Inpatient (IN) | payer MEDICARE, MEDICAID, SELFPAY ==
[2023-10-10] VITALS (9 sets, daily range): BP systolic 128; BP diastolic 80; PULSE 87–105; RESP 18–22; TEMP 36.5; O2SAT 91–97; BMI 29.5
--- NOTE | 2023-10-10 15:00 | ED_ITS ---
Documented by User: Aline Miranda MD 10/11/23 06:46 HPI - Male Genitourinary 2 General: Chief complaint: Urogenital-Male Stated complaint: liu trouble Time Seen by Provider: 10/10/23 14:43 History of Present Illness: This patient is a 68-year-old male presenting from home. His chief complaint today is that his Liu catheter is not working. He said it has not put out any urine in 2 days. He took some extra lasix to try to get it going. He feels like his bladder is very full and his abdomen is distended. He is something of a confusing historian and is difficult to keep on topic. He has an extensive rash on his body which he says has been going on for a few weeks. Reviewing the medical record it appears that he has had something like this for a while. He has seen a doctor through virtual visit and is on some medication that seems to make it improve. He denies other complaints currently. He was brought in by ambulance today and EMS reports that his living situation has been hotlined multiple times. On review of the prior visits I see that the patient has been offered placement in long-term care and has declined. He has a history of neurogenic bladder and had been self cathing. He currently has an indwelling Liu. PFS ED 2 PFSH: Medical History Osteomyelitis Decubitus ulcer of sacral region, unstageable Diastolic CHF Cellulitis Cardiomyopathy Falls frequently Periorbital edema of both eyes Skin ulcer Acute on chronic urinary retention Encephalopathy Lactic acidosis Hypothermia Tobacco dependency Multiple sclerosis Troponin level elevated Urinary retention Acute on chronic renal failure Chronic kidney disease Coronary artery disease Lacunar infarction Hyperlipidemia HTN (hypertension) Ischemic cardiomyopathy History of non-ST elevation myocardial infarction (NSTEMI) CHF (congestive heart failure) Surgical History Hx of colonoscopy with polypectomy History of esophagogastroduodenoscopy (EGD) Hx of heart artery stent stents x 2, 2018- unknown vessels Family History Sister Heart disease Hypertension Myocardial infarction Mother Cancer Daughter Myocardial infarction Social History Smoking and tobacco/nicotine status: current every day tobacco/nicotine user cigarettes Packs smoked per day: 0.5 [ Other cigarette details: Cutting down] Alcohol intake: never Substance/Drug Use: unknown Adopted: No Caregiver/support person: No Lives independently: No Marital status: Single Physical Exam 2 Const: COMMON NORMALS: no acute distress, patient oriented x3 and alert G ENERAL APPEARANCE: cooperative and comfortable OTHER: Talkative, hard of hearing. HENMT: HEAD & SCALP: normal to inspection FACE & SINUS: normal facial exam Eye: GENERAL EYE: appearance normal, both eyes and all related structures Neck/C-Spine: COMMON NORMALS: supple and no meningeal signs Chest: COMMONS NORMALS: normal inspection of the chest Resp: COMMON NORMALS: normal respiratory effort and No use of accessory muscles GI: PALPATION: Yes Bladder palpation abnormal (Distended, tender) : BLADDER/KIDNEY EXAM: Yes catheter in place and Yes Bladder palpation abnormal (Distended, tender) Bladder abnormal details: tender and distended to the umbilicus MEATUS: epispadias Back/Pelvis: COMMON NORMALS: thoracic and lumbar spine normal to inspection Extremity: COMMON NORMALS: normal to inspection Neuro: COMMON NORMALS: patient oriented x3, moves all extremities, no focal motor deficits and no sensory deficits noted SENSORIUM/ORIENTATION: Yes alert MENINGEAL SIGNS: Yes no meningeal signs Psych: COMMON NORMALS: mental status grossly normal, cooperative and normal affect Skin: OTHER: Skin is covered with patchy areas of combinations of eschar and pink areas of new skin formation. I do not see anything that looks like it is acutely infected at this time. Course 2 Vital Signs: Vital signs: Vital Signs Temperature 97.7 F 10/10/23 21:07 Pulse Rate 88 10/10/23 22:30 Respiratory Rate 18 10/10/23 22:30 Blood Pressure 128/80 10/10/23 21:07 Pulse Oximetry 94 10/10/23 22:30 Oxygen Delivery Me thod Room Air 10/10/23 22:30 MDM - Male Medical Decision Making Ongoing rash that patient says is getting better. He is not here because of that rash. He is here because his Liu catheter is not draining. His bladder does feel very distended on exam. Will replace his Liu catheter. Will also check kidney function to make sure he does not have a postobstructive renal failure. He has worsening renal function, and his potassium is over 7. He was treated for hyperkalemia with D10, insulin and calcium. He also had the liu replaced and had brisk urine output. WBC was noted to be 33K - and he has recent history of sepsis. He was treated for UTI and also has a sacral decubitus. The urine culture from recent UTI showed proteus mirabilis with resistance to most antibiotics. It was sensitive to pip/elda. He had already been given ceftriaxone and I added pip/elda. Blood cultures and lactic acid ordered as well. The RN and myself spent a lot of time discussing the findings and necessary treatment with the patient. He does not understand what we are telling him and I do not think he has capacity to make his own medical decisions. He does say that he doesn't want to be admitted, but he can't explain back to my why I want him to be admitted and what the consequences of refusing would be. If necessary, I will place him under a medical hold as I do not feel that he has capacity to refuse. Lab Data 10/11/23 04:36 10/11/23 04:36 Radiology Impressions Abdomen/Pelvis CT 10/10/23 17:41 IMPRESSION: 1. The bladder wall is thickened. This is nonspecific and may represent bladder outlet obstruction, inflammation or infection. Neoplastic process is included in the differential. 2. There is noncalcified heterogeneous density in the left renal pelvis and mild bilateral perinephric and periureteral stranding raising concern for ascending urinary tract infection with pyelonephritis. CT scan of the abdomen/pelvis with IV contrast and delayed images, renal protocol, is recommended for further evaluation. COMMENTS: Consistent with the [employer] [employer]'s Incidental Findings Committee white paper (J Am Vipul Radiol 2018): Any incidental renal lesion less than 1 cm or classified as too small to characterize, or any incidental cystic renal lesion characterized as simple-appearing, is likely benign. No follow-up imaging is recommended for these lesions per consensus recommendations based on imaging criteria. Laboratory Results WBC 33.14 10^3/uL (3.29-11.43) H* 10/10/23 15:12 RBC 4.81 10^6/uL (3.85-5.65) 10/10/23 15:12 Hgb 11.70 g/dL (11.27-16.99) 10/10/23 15:12 Hct 38.8 % (37-53) 10/10/23 15:12 MCV 80.7 fl (82-101) L 10/10/23 15:12 MCH 24.3 pg (27-33) L 10/10/23 15:12 MCHC 30.2 g/dL (30-55) 10/10/23 15:12 RDW 25.5 % (12.1-15.1) H 10/10/23 15:12 Plt Count 282 10^3/cmm (157-399) 10/10/23 15:12 MPV 9.4 fL (7.4-10.4) 10/10/23 15:12 Neut % (Auto) 94.0 % 10/10/23 15:12 Lymph % (Auto) 1.3 % 10/10/23 15:12 Schleicher % (Auto) 3.6 % 10/10/23 15:12 Eos % (Auto) 0.0 % 10/10/23 15:12 Baso % (Auto) 0.2 % 10/10/23 15:12 Neut # (Auto) 31.14 10^3/uL (1.8-7.7) H 10/10/23 15:12 Lymph # (Auto) 0.4 10^3/uL (0.8-4.8) L 10/10/23 15:12 Schleicher # (Auto) 1.2 10^3/uL (0.2-0.9) H 10/10/23 15:12 Eos # (Auto) 0.0 10^3/uL (0.0-0.8) 10/10/23 15:12 Baso # (Auto) 0.1 10^3/uL (0.0-0.1) 10/10/23 15:12 Nucleated RBC % (auto) 0 % 10/10/23 15:12 Nucleated RBCs # 0.0 /100WBC 10/10/23 15:12 Sodium 126 mmol/L (136-145) L 10/10/23 15:12 Potassium 7.2 mmol/L (3.5-5.1) H* 10/10/23 15:12 Chloride 91 mmol/L (98-107) L 10/10/23 15:12 Carbon Dioxide 19 mmol/L (22-29) L 10/10/23 15:12 Anion Gap 23.2 (5-19) H 10/10/23 15:12 BUN 71 mg/dL (8-23) H 10/10/23 15:12 Creatinine 3.2 mg/dL (0.7-1.2) H 10/10/23 15:12 GFR Calculation 19.4 mL/min (90-130) L 10/10/23 15:12 Glucose 198 mg/dL (65-115) H 10/10/23 15:12 POC Glucose 232 mg/dL (70-110) H 10/10/23 17:37 Calculated Osmolality 288 mOsm/kg (285-295) 10/10/23 15:12 Lactic Acid 1.6 mmol/L (0.5-2.2) 10/10/23 17:20 Calcium 8.3 mg/dL (8.5-10.5) L 10/10/23 15:12 Total Bilirubin 0.6 mg/dL (0.15-1.2) 10/10/23 15:12 AST 19 U/L (0-40) 10/10/23 15:12 ALT 27 U/L (0-41) 10/10/23 15:12 Alkaline Phosphatase 122 U/L (40-130) 10/10/23 15:12 Total Protein 7.2 g/dL (6.6-8.7) 10/10/23 15:12 Albumin 2.7 g/dL (3.5-5.2) L 10/10/23 15:12 Globulin 4.5 g/dL (1.3-4.6) 10/10/23 15:12 Urine Color Red (Yellow) A 10/10/23 15:45 Urine Appearance Turbid (CLEAR) A 10/10/23 15:45 Urine pH Not Reportable 10/10/23 15:45 Ur Specific Fifield Not Reportable 10/10/23 15:45 Urine Protein Not Reportable 10/10/23 15:45 Urine Glucose (UA) Not Reportable 10/10/23 15:45 Urine Ketones Not Reportable 10/10/23 15:45 Urine Blood Not Reportable 10/10/23 15:45 Urine Nitrate Not Reportable 10/10/23 15:45 Urine Bilirubin Not Reportable 10/10/23 15:45 Urine Urobilinogen Not Reportable 10/10/23 15:45 Ur Leukocyte Esterase Not Reportable 10/10/23 15:45 Urine RBC Too numerous to cnt /hpf (0-2) H 10/10/23 15:45 Urine WBC Too numerous to cnt /hpf (0-5) H 10/10/23 15:45 Ur Squamous Epith Cells None /hpf (0-5) 10/10/23 15:45 Amorphous Sediment Not Reportable 10/10/23 15:45 Urine Bacteria 3+ /hpf (NONE) H 10/10/23 15:45 Discharge Plan Discharge Patient Disposition: Admitted As Inpatient Admit Provider: Ted Garcia Clinical Impression: Sepsis, Urinary tract infection, Acute hyperkalemia Condition: Stable Coding Level of Care Code ED Electronic Science Teacher for Chg Fwd Documented by User: Abimael Tran DO 10/10/23 21:13 HPI - Male Genitourinary 2 General: Chief complaint: Urogenital-Male Stated complaint: liu trouble Time Seen by Provider: 10/10/23 14:43 PFSH ED 2 PFSH: Medical History Osteomyelitis Decubitus ulcer of sacral region, unstageable Diastolic CHF Cellulitis Cardiomyopathy Falls frequently Periorbital edema of both eyes Skin ulcer Acute on chronic urinary retention Encephalopathy Lactic acidosis Hypothermia Tobacco dependency Multiple sclerosis Troponin level elevated Urinary retention Acute on chronic renal failure Chronic kidney disease Coronary artery disease Lacunar infarction Hyperlipidemia HTN (hypertension) Ischemic cardiomyopathy History of non-ST elevation myocardial infarction (NSTEMI) CHF (congestive heart failure) Surgical History Hx of colonoscopy with polypectomy History of esophagogastroduodenoscopy (EGD) Hx of heart artery stent stents x , 2018- unknown vessels Family History Sister Heart disease Hypertension Myocardial infarction Mother Cancer Daughter Myocardial infarction Social History Smoking and tobacco/nicotine status: current every day tobacco/nicotine user cigarettes Packs smoked per day: 0.5 [ Other cigarette details: Cutting down] Alcohol intake: never Substance/Drug Use: unknown Adopted: No Caregiver/support person: No Lives independently: No Marital status: Single Course 2 Vital Signs: Vital signs: Vital Signs Temperature 97.7 F 10/10/23 21:07 Pulse Rate 88 10/10/23 22:30 Respiratory Rate 18 10/10/23 22:30 Blood Pressure 128/80 10/10/23 21:07 Pulse Oximetry 94 10/10/23 22:30 Oxygen Delivery Me thod Room Air 10/10/23 22:30 MDM - Male Medical Decision Making Ongoing rash that patient says is getting better. He is not here because of that rash. He is here because his Liu catheter is not draining. His bladder does feel very distended on exam. Will replace his Liu catheter. Will also check kidney function to make sure he does not have a postobstructive renal failure. He has worsening renal function, and his potassium is over 7. He was treated for hyperkalemia with D10, insulin and calcium. He also had the liu replaced and had brisk urine output. WBC was noted to be 33K - and he has recent history of sepsis. He was treated for UTI and also has a sacral decubitus. The urine culture from recent UTI showed proteus mirabilis with resistance to most antibiotics. It was sensitive to pip/elda. He had already been given ceftriaxone and I added pip/elda. Blood cultures and lactic acid ordered as well. The RN and myself spent a lot of time discussing the findings and necessary treatment with the patient. He does not understand what we are telling him and I do not think he has capacity to make his own medical decisions. He does say that he doesn't want to be admitted, but he can't explain back to my why I want him to be admitted and what the consequences of refusing would be. If necessary, I will place him under a medical hold as I do not feel that he has capacity to refuse. Care transferred over to myself at shift change, waiting on CT scan to come back, CT scan back talked with Dr. Romero about the patient patient at first was reluctant to stay however he talked to his son who convinced him to stay. Lab Data 10/11/23 04:36 10/11/23 04:36 Radiology Impressions Abdomen/Pelvis CT 10/10/23 17:41 IMPRESSION: 1. The bladder wall is thickened. This is nonspecific and may represent bladder outlet obstruction, inflammation or infection. Neoplastic process is included in the differential. 2. There is noncalcified heterogeneous density in the left renal pelvis and mild bilateral perinephric and periureteral stranding raising concern for ascending urinary tract infection with pyelonephritis. CT scan of the abdomen/pelvis with IV contrast and delayed images, renal protocol, is recommended for further evaluation. COMMENTS: Consistent with the [place] [employer]'s Incidental Findings Committee white paper (J Am Vipul Radiol 2018): Any incidental renal lesion less than 1 cm or classified as too small to characterize, or any incidental cystic renal lesion characterized as simple-appearing, is likely benign. No follow-up imaging is recommended for these lesions per consensus recommendations based on imaging criteria. Laboratory Results WBC 33.14 10^3/uL (3.29-11.43) H* 10/10/23 15:12 RBC 4.81 10^6/uL (3.85-5.65) 10/10/23 15:12 Hgb 11.70 g/dL (11.27-16.99) 10/10/23 15:12 Hct 38.8 % (37-53) 10/10/23 15:12 MCV 80.7 fl (82-101) L 10/10/23 15:12 MCH 24.3 pg (27-33) L 10/10/23 15:12 MCHC 30.2 g/dL (30-55) 10/10/23 15:12 RDW 25.5 % (12.1-15.1) H 10/10/23 15:12 Plt Count 282 10^3/cmm (157-399) 10/10/23 15:12 MPV 9.4 fL (7.4-10.4) 10/10/23 15:12 Neut % (Auto) 94.0 % 10/10/23 15:12 Lymph % (Auto) 1.3 % 10/10/23 15:12 Schleicher % (Auto) 3.6 % 10/10/23 15:12 Eos % (Auto) 0.0 % 10/10/23 15:12 Baso % (Auto) 0.2 % 10/10/23 15:12 Neut # (Auto) 31.14 10^3/uL (1.8-7.7) H 10/10/23 15:12 Lymph # (Auto) 0.4 10^3/uL (0.8-4.8) L 10/10/23 15:12 Schleicher # (Auto) 1.2 10^3/uL (0.2-0.9) H 10/10/23 15:12 Eos # (Auto) 0.0 10^3/uL (0.0-0.8) 10/10/23 15:12 Baso # (Auto) 0.1 10^3/uL (0.0-0.1) 10/10/23 15:12 Nucleated RBC % (auto) 0 % 10/10/23 15:12 Nucleated RBCs # 0.0 /100WBC 10/10/23 15:12 Sodium 126 mmol/L (136-145) L 10/10/23 15:12 Potassium 7.2 mmol/L (3.5-5.1) H* 10/10/23 15:12 Chloride 91 mmol/L (98-107) L 10/10/23 15:12 Carbon Dioxide 19 mmol/L (22-29) L 10/10/23 15:12 Anion Gap 23.2 (5-19) H 10/10/23 15:12 BUN 71 mg/dL (8-23) H 10/10/23 15:12 Creatinine 3.2 mg/dL (0.7-1.2) H 10/10/23 15:12 GFR Calculation 19.4 mL/min (90-130) L 10/10/23 15:12 Glucose 198 mg/dL (65-115) H 10/10/23 15:12 POC Glucose 232 mg/dL (70-110) H 10/10/23 17:37 Calculated Osmolality 288 mOsm/kg (285-295) 10/10/23 15:12 Lactic Acid 1.6 mmol/L (0.5-2.2) 10/10/23 17:20 Calcium 8.3 mg/dL (8.5-10.5) L 10/10/23 15:12 Total Bilirubin 0.6 mg/dL (0.15-1.2) 10/10/23 15:12 AST 19 U/L (0-40) 10/10/23 15:12 ALT 27 U/L (0-41) 10/10/23 15:12 Alkaline Phosphatase 122 U/L (40-130) 10/10/23 15:12 Total Protein 7.2 g/dL (6.6-8.7) 10/10/23 15:12 Albumin 2.7 g/dL (3.5-5.2) L 10/10/23 15:12 Globulin 4.5 g/dL (1.3-4.6) 10/10/23 15:12 Urine Color Red (Yellow) A 10/10/23 15:45 Urine Appearance Turbid (CLEAR) A 10/10/23 15:45 Urine pH Not Reportable 10/10/23 15:45 Ur Specific Fifield Not Reportable 10/10/23 15:45 Urine Protein Not Reportable 10/10/23 15:45 Urine Glucose (UA) Not Reportable 10/10/23 15:45 Urine Ketones Not Reportable 10/10/23 15:45 Urine Blood Not Reportable 10/10/23 15:45 Urine Nitrate Not Reportable 10/10/23 15:45 Urine Bilirubin Not Reportable 10/10/23 15:45 Urine Urobilinogen Not Reportable 10/10/23 15:45 Ur Leukocyte Esterase Not Reportable 10/10/23 15:45 Urine RBC Too numerous to cnt /hpf (0-2) H 10/10/23 15:45 Urine WBC Too numerous to cnt /hpf (0-5) H 10/10/23 15:45 Ur Squamous Epith Cells None /hpf (0-5) 10/10/23 15:45 Amorphous Sediment Not Reportable 10/10/23 15:45 Urine Bacteria 3+ /hpf (NONE) H 10/10/23 15:45 All radiology interpretation(s) finalized by discharge Discharge Plan Discharge Patient Disposition: Admitted As Inpatient Admit Provider: Ted Garcia Clinical Impression: Sepsis, Urinary tract infection, Acute hyperkalemia Condition: Stable Coding Level of Care Code ED Electronic Science Teacher for Kathryn Olmstead
[2023-10-10 15:24] LABS: Basophils # 0.1 10^3/uL (0.0-0.1); Basophils % 0.2 %; Hematocrit 38.8 % (37-53); Lymphocytes # 0.4 10^3/uL (0.8-4.8); Lymphocytes % 1.3 %; Mean Corpuscular HGB Conc 30.2 g/dL (30-55); Mean Corpuscular Hemoglobin 24.3 pg (27-33); Mean Corpuscular Volume 80.7 fl (82-101); Mean Platelet Volume 9.4 fL (7.4-10.4); Monocytes # 1.2 10^3/uL (0.2-0.9); Monocytes % 3.6 %; Neutrophils # 31.14 10^3/uL (1.8-7.7); Nucleated Red Blood Cells % 0 %; Platelet Count 282 10^3/cmm (157-399); Red Blood Count 4.81 10^6/uL (3.85-5.65); Red Cell Distribution Width 25.5 % (12.1-15.1)
[2023-10-10 15:37] LABS: Albumin Level 2.7 g/dL (3.5-5.2); Alkaline Phosphatase 122 U/L (40-130); Blood Urea Nitrogen 71 mg/dL (8-23); Calcium 8.3 mg/dL (8.5-10.5); Carbon Dioxide 19 mmol/L (22-29); Chloride 91 mmol/L (98-107); Creatinine Clr Calc Pharmacy 24.2544; Globulin 4.5 g/dL (1.3-4.6); Glomerular Filtration Rate 19.4 mL/min (90-130); Glucose 198 mg/dL (65-115); Osmolality Calculated 288 mOsm/kg (285-295); Sodium 126 mmol/L (136-145); Total Bilirubin 0.6 mg/dL (0.15-1.2); Total Protein 7.2 g/dL (6.6-8.7)
[2023-10-10 15:42] LABS: Anion Gap 23.2 (5-19)
[2023-10-10 15:43] LABS: Alanine Aminotransferase 27 U/L (0-41); Aspartate Amino Transferase 19 U/L (0-40)
[2023-10-10 15:44] LABS: Potassium 7.2 mmol/L (3.5-5.1)
--- NOTE | 2023-10-10 15:52 | ECG_ITS ---
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 Measurements Intervals [place] Rate: 89 P: 59 AL: 233 QRS: 108 QRSD: 194 T: -44 QT: 433 QTc: 528 Interpretive Statements SINUS RHYTHM WITH FIRST DEGREE AV BLOCK POSSIBLE LEFT ATRIAL ENLARGEMENT [-0.1mV P-WAVE IN V1/V2] RIGHT AXIS DEVIATION [QRS AXIS > 100] RIGHT BUNDLE BRANCH BLOCK [120+ ms QRS DURATION, UPRIGHT V1, 40+ ms S IN I/aVL/V4/V5/V6] MODERATE T-WAVE ABNORMALITY, CONSIDER INFERIOR ISCHEMIA [-0.1+ mV T-WAVE IN II/aVF] Compared to ECG 09/13/2023 20:31:49 No significant changes Electronically Signed On 10-10-2023 18:39:44 CDT by Parish Lea M.D. [id number]
[2023-10-10 16:09] LABS: White Blood Count 33.14 10^3/uL (3.29-11.43)
[2023-10-10 16:52] LABS: Add Urine Microscopic? YES; Urine Appearance Turbid (CLEAR); Urine Color Red (Yellow)
[2023-10-10 16:54] LABS: RBC Urine TOO NUMEROUS TO CNT /hpf (0-2)
[2023-10-10 16:55] LABS: Add Urine Culture? Yes; Bacteria Urine 3+ /hpf; WBC Urine TOO NUMEROUS TO CNT /hpf (0-5)
[2023-10-10] MEDS: dextrose 10% 125 ML 750 ML IV ×2 (17:33→22:12)
[2023-10-10] MEDS: calcium gluconate 0.1 gm/mL 10% SDV 10mL 1 GM IVP ×2 (17:36→22:50)
[2023-10-10] MEDS: water for injection-sterile SDV 10 mL IVP (17:39)
[2023-10-10] MEDS: cefTRIAXone 1,000 mg SDV 1000 MG IVP (17:39)
[2023-10-10 17:40] LABS: Glucose Point of Care 232 mg/dL (70-110)
--- NOTE | 2023-10-10 17:41 | CTR_ITS ---
PROCEDURE INFORMATION: Exam: CT Abdomen And Pelvis Without Contrast Exam date and time: 10/10/2023 6:00 PM Age: 68 years old Clinical indication: Other: Gross hematuria, urinary retention; Prior surgery; Surgery date: 6+ months; Surgery type: Coronary stents; Additional info: Acute urinary retention TECHNIQUE: Imaging protocol: Computed tomography of the abdomen and pelvis without contrast. Radiation optimization: All CT scans at this facility use at least one of these dose optimization techniques: automated exposure control; mA and/or kV adjustment per patient size (includes targeted exams where dose is matched to clinical indication); or iterative reconstruction. COMPARISON: [place] [id number] 09/14/2023 6:02 PM RADIATION DOSE METRICS: Total DLP (mGy-cm): 1433.71 FINDINGS: Heart: Cardiomegaly. Liver: Normal. No mass. Gallbladder and biliary ducts: Normal. No calcified stones. No ductal dilation. Pancreas: Normal. No ductal dilation. Spleen: Normal. No splenomegaly. Adrenal glands: Normal. No mass. Kidneys and ureters: There is noncalcified heterogeneous density in the left renal pelvis. Bilateral mild perinephric and periureteral stranding. Subcentimeter left renal cysts cannot be further characterized without IV contrast. Stomach and bowel: Unremarkable. No obstruction. No mucosal thickening. Appendix: No evidence of appendicitis. Intraperitoneal space: There is a small amount of free fluid in the pelvis. Vasculature: Multi-vessel atherosclerotic disease. Lymph nodes: Unremarkable. No enlarged lymph nodes. Urinary bladder: The bladder wall is thickened and ill-defined. There is edema in the fat surrounding the bladder. A Barros catheter and air are present in the bladder. Reproductive: Unremarkable as visualized. Bones/joints: Unremarkable. No acute fracture. Soft tissues: There is edema in the soft tissues. CT/CT kidney stone [id number] IMPRESSION: 1. The bladder wall is thickened. This is nonspecific and may represent bladder outlet obstruction, inflammation or infection. Neoplastic process is included in the differential. 2. There is noncalcified heterogeneous density in the left renal pelvis and mild bilateral perinephric and periureteral stranding raising concern for ascending urinary tract infection with pyelonephritis. CT scan of the abdomen/pelvis with IV contrast and delayed images, renal protocol, is recommended for further evaluation. COMMENTS: Consistent with the [employer]'s Incidental Findings Committee white paper (J Am Vipul Radiol 2018): Any incidental renal lesion less than 1 cm or classified as too small to characterize, or any incidental cystic renal lesion characterized as simple-appearing, is likely benign. No follow-up imaging is recommended for these lesions per consensus recommendations based on imaging criteria.
[2023-10-10 17:44] LABS: Lactic Sepsis W/Reflex 1.6 mmol/L (0.5-2.2)
[2023-10-10] MEDS: insulin regular-human 100 units/1 mL 5 UNIT IVP (17:53)
--- NOTE | 2023-10-10 18:34 | P.HP_ITS ---
Providers/Chief Complaint 2 Primary Care Provider: AUGUSTINE Craig Chief Complaint: liu trouble History of Present Illness Armando Coleman is a 68 year old male with significant history of multiple sclerosis, bedbound status, neurogenic bladder, has indwelling Liu catheter, present to the hospital for low urine output. Patient is stating that it was working fine until 3 days ago when he started noticing that his urine output was decreasing and he noted a lot of clumps and crystals in his Liu catheter and urine output started decreasing that prompted his visit to the ER today. Patient is living with his son and a girlfriend, patient is stating that he does follow-up with wound care, he is stating that no one knows what is going on with the skin however on review of previous records he was supposed to be on long taper regimen of steroids. Liu catheter was changed in the ER, patient was wanting to leave AMA however after multiple discussions with the patient he decided to stay, CT scan abdomen pelvis is not showing any obstruction however there is bladder wall thickening and neoplastic processes still in the differentials, he does have hematuria, 3 L urine output has been noticed already. He has hyperkalemia we will give him Kayexalate given insulin D50 amp, bicarb and recheck BMP, he seems to have persistent/recurrent urinary tract infection. Patient is afebrile with leukocytosis, tachypnea, lactic acid is normal, acute on chronic kidney disease hyperkalemia I will give him septic bolus along antibiotics request urine and blood culture History of of ESBL Review of Systems 2 Const: Reports: chills Eyes: Denies: change in vision ENMT: Denies: throat pain Card: Reports: swelling of feet/ankles; Denies: chest pain Resp: Reports: dyspnea GI: Denies: abdominal pain : Denies: flank pain Musc: Reports: extremity pain Skin/Breast: Reports: rash, pruritus, erythema and skin tenderness Neuro: Denies: headache(s) Psych: Denies: anxiety Medications/Allergies Home Medications Medication Instructions Recorded Confirmed Last Taken Type nitroglycerin 0.4 mg sublingual 0.4 mg sublingual Q5M PRN chest 04/27/19 09/15/23 1 Week Ago Rx tablet pain #30 tabs ~05/30/23 atorvastatin 40 mg tablet 40 mg PO QPM 0809/15/23 06/05/23 History clopidogrel 75 mg tablet 75 mg PO QAM #90 tabs 11/24/21 09/15/23 1 Week Ago Rx ~05/30/23 acetaminophen 325 mg tablet 650 mg PO QID PRN Pain 06/06/23 09/15/23 Unknown History aspirin 81 mg tablet,delayed 81 mg PO DAILY #30 tabs 06/24/23 09/15/23 Unknown Rx release furosemide 40 mg tablet 40 mg PO DAILY PRN Edema 07/07/23 09/15/23 Unknown History tizanidine 4 mg tablet 2 mg PO QID PRN Muscle Spasm 07/07/23 09/15/23 Unknown History lisinopril 10 mg tablet 10 mg PO DAILY 09/15/23 09/15/23 Unknown History metoprolol succinate 25 mg 25 mg PO DAILY 09/15/23 09/15/23 Unknown History tablet,extended release 24 hr tamsulosin 0.4 mg capsule 0.4 mg PO QPM 09/15/23 09/15/23 Unknown History amlodipine 5 mg tablet 5 mg PO DAILY #30 tabs 09/25/23 Unknown Rx prednisone 10 mg tablet See Rx Instructions .Route 09/25/23 Unknown Rx .COMPLEX #92 tabs Allergies Allergy/AdvReac Type Severity Reaction Status Date / Time No Known Allergies Allergy Verified 10/10/23 14:53 PFSH Acute 2 PFSH: Medical History Osteomyelitis Decubitus ulcer of sacral region, unstageable Diastolic CHF Cellulitis Cardiomyopathy Falls frequently Periorbital edema of both eyes Skin ulcer Acute on chronic urinary retention Encephalopathy Lactic acidosis Hypothermia Tobacco dependency Multiple sclerosis Troponin level elevated Urinary retention Acute on chronic renal failure Chronic kidney disease Coronary artery disease Lacunar infarction Hyperlipidemia HTN (hypertension) Ischemic cardiomyopathy History of non-ST elevation myocardial infarction (NSTEMI) CHF (congestive heart failure) Surgical History Hx of colonoscopy with polypectomy History of esophagogastroduodenoscopy (EGD) Hx of heart artery stent stents x 2, 2017- unknown vessels Family History Sister Heart disease Hypertension Myocardial infarction Mother Cancer Daughter Myocardial infarction Social History Smoking and tobacco/nicotine status: current every day tobacco/nicotine user cigarettes Packs smoked per day: 0.5 [ Other cigarette details: Cutting down] Alcohol intake: never Substance/Drug Use: unknown Adopted: No Caregiver/support person: No Lives independently: No Marital status: Single Vitals/I&O/Wt Last Vital Signs Temp 97.7 F 10/10/23 14:43 Pulse 97 10/10/23 17:52 Resp 22 H 10/10/23 14:43 BP 128/80 10/10/23 14:43 Pulse Ox 96 10/10/23 17:52 O2 Del Method Room Air 10/10/23 14:43 Weight last 48 hrs Weight 90.718 kg Physical Exam 2 Narrative: S skin rash which is showing signs of healing on torso however lower extremity skin rash showing multiple oozing with blood with sign of cellulitis left Significant edema Liu catheter in place with erythema around scrotal area, creatinine around groin Does not have typical Beka's gangrene features S1-2 Currently on room air Hemodynamically stable Pleasant cooperative Awake and alert Nonfocal neuroexam Urinary Catheter Management: Liu: Cath Placed During This Visit: yes Reason for Continuing Indwelling Catheter: Chronic Indwelling Urinary Catheter on Admission Urinary Catheter Date of Insertion: 10/10/23 Data 10/10/23 15:12 10/10/23 15:12 Micro: Microbiology 10/10/23 17:20 Blood Culture - Preliminary Blood SPECIMEN COLLECTED 10/10/23 17:20 Blood Culture - Preliminary Blood SPECIMEN COLLECTED A&P Assessment and plan (1) Systolic congestive heart failure: (2) Ischemic cardiomyopathy: (3) Acute kidney injury superimposed on CKD: (4) UTI (urinary tract infection): (5) Cystitis: (6) Leukocytosis: Qualifiers: Leukocytosis type: unspecified Qualified Code(s): D72.829 - Elevated white blood cell count, unspecified (7) Bilateral cellulitis of lower leg: (8) Rash: (9) Hyperkalemia: (10) Metabolic acidosis: Plan Acute on chronic kidney disease Hyperkalemia Creatinine worsening Postrenal obstruction Liu catheter has been exchanged More than 3 L urine output already noticed in the ER Anticipating improvement with better diuresis No sign of hydronephrosis Concern for infection versus neoplastic process Patient will need outpatient urology follow-up Anasarca with underlying systolic CHF with acute exacerbation Continue diuresis after septic bolus Judicious use of septic bolus Sepsis related to recurrent UTI Criteria met with tachypnea tachycardia leukocytosis endorgan damage Sources ESBL most likely Start antibiotics, requested urine culture Skin rash: Patient was on prolonged steroid taper I see good clinician tissue on torso however lower extremity swelling and erythema is seems to be worsening with features concerning for development of cellulitis Start broad-spectrum antibiotics renally dosed Noncompliant Cardiac c diet Patient lives with son and a girlfriend Was wanting to leave AMA however agreed to stay overnight no signs of encephalopathy at this point Full code DVT prophylaxis heparin Attestations 2 Medical Necessity Statement*: More than 2 midnights anticipated Diagnoses Systolic congestive heart failure I50.20 Ischemic cardiomyopathy I25.5 Acute kidney injury superimposed on CKD N17.9; N18.9 UTI (urinary tract infection) N39.0 Cystitis N30.90 Leukocytosis D72.829 Leukocytosis type: unspecified Bilateral cellulitis of lower leg L03.116; L03.115 Rash R21 Hyperkalemia E87.5 Metabolic acidosis E87.20
[2023-10-10] MEDS: sodium chloride 0.9% 1,000 ML 999 ML IV (19:05)
[2023-10-10] MEDS: piperacillin-tazobactam 4.5 GM in sodium chloride 0.9% (plus) 50 ML IV (19:05)
[2023-10-10 20:29] LABS: Alanine Aminotransferase 23 U/L (0-41); Albumin Level 2.6 g/dL (3.5-5.2); Alkaline Phosphatase 116 U/L (40-130); Anion Gap 22.1 (5-19); Aspartate Amino Transferase 11 U/L (0-40); Blood Urea Nitrogen 76 mg/dL (8-23); Calcium 8.6 mg/dL (8.5-10.5); Carbon Dioxide 20 mmol/L (22-29); Chloride 96 mmol/L (98-107); Creatinine Clr Calc Pharmacy 25.0368; Globulin 4.2 g/dL (1.3-4.6); Glomerular Filtration Rate 20.1 mL/min (90-130); Glucose 242 mg/dL (65-115); Osmolality Calculated 305 mOsm/kg (285-295); Potassium 6.1 mmol/L (3.5-5.1); Sodium 132 mmol/L (136-145); Total Bilirubin 0.4 mg/dL (0.15-1.2); Total Protein 6.8 g/dL (6.6-8.7)
--- NOTE | 2023-10-10 21:10 | ECG_ITS ---
[facility] Test Date: 2023-10-10 Pat Name: Armando Coleman Department: Room: 251 Gender: Male System Designer: : 1955 Requested By: Jane Sargent Order Number: [id number] Johanny MD: Parish Lea M.D. Measurements Intervals [place] Rate: 88 P: 55 ID: [id number] QRS: 100 QRSD: 189 T: -71 QT: 432 QTc: 524 Interpretive Statements SINUS RHYTHM WITH FIRST DEGREE AV BLOCK WITH FREQUENT VENTRICULAR PREMATURE COMPLEXES IN A BIGEMINAL PATTERN RIGHT BUNDLE BRANCH BLOCK [120+ ms QRS DURATION, UPRIGHT V1, 40+ ms S IN I/aVL/V4/V5/V6] MODERATE T-WAVE ABNORMALITY, CONSIDER LATERAL ISCHEMIA [-0.1+ mV T-WAVE IN I/aVL/V5/V6] MODERATE T-WAVE ABNORMALITY, CONSIDER INFERIOR ISCHEMIA [-0.1+ mV T-WAVE IN II/aVF] Compared to ECG 10/10/2023 16:52:32 Ventricular premature complex(es) now present Right-axis deviation no longer present T-wave abnormality still present Possible ischemia still present Electronically Signed On 10-12-2023 19:25:10 CDT by Parish Lea M.D. [email or web address]
[2023-10-10] MEDS: meropenem 500 mg SDV IVP (21:24)
[2023-10-10] MEDS: sodium polystyrene sulfonate 15 gm/60 mL Btl PO (21:24)
[2023-10-10] MEDS: heparin 5,000 unit/mL INJ 1 mL 5000 UNIT SUBCUT (21:24)
[2023-10-10 21:50] LABS: Glucose Point of Care 232 mg/dL (70-110)
--- NOTE | 2023-10-10 21:57 | P.CONIM_ITS ---
Providers/Reason For Consult 2 Consulting Physician/Specialty*: kommana/Nephrology Reason for Consult*: SUSHILA Attending Physician: Ted Garcia MD Primary Care Provider: AUGUSTINE Craig History of Present Illness History of Present Illness Armando Coleman is a 68 year old male 68-year-old male with multiple medical problems including multiple sclerosis neurogenic bladder with indwelling Barros catheter, hypertension presented to the emergency department due to low urine output. He also noted cloudy urine. In the emergency department he was noted to be tachypneic tachycardic has elevated WBC count and has hyperkalemia and SUSHILA. He is currently on room air lab data significant for elevated WBC count of 33,000 potassium was 7.2 with a sodium 126 CO2 19 BUN of 71 and creatinine 3.2. Patient received IV fluids in the ED. Chest x-ray showed increased interstitial markings. CT abdomen showed bladder wall thickening consistent with either possible bladder outlet obstruction or infection. Also findings consistent with pyelonephritis.. Review of Systems 2 Narrative: Negative Medications/Allergies Home Medications Medication Instructions Recorded Confirmed Last Taken Type nitroglycerin 0.4 mg sublingual 0.4 mg sublingual Q5M PRN chest 04/27/19 09/15/23 1 Week Ago Rx tablet pain #30 tabs ~05/30/23 atorvastatin 40 mg tablet 40 mg PO QPM 11/22/21 09/15/23 06/05/23 History clopidogrel 75 mg tablet 75 mg PO QAM #90 tabs 11/24/21 09/15/23 1 Week Ago Rx ~05/30/23 acetaminophen 325 mg tablet 650 mg PO QID PRN Pain 06/06/23 09/15/23 Unknown History aspirin 81 mg tablet,delayed 81 mg PO DAILY #30 tabs 06/24/23 09/15/23 Unknown Rx release furosemide 40 mg tablet 40 mg PO DAILY PRN Edema 07/07/23 09/15/23 Unknown History tizanidine 4 mg tablet 2 mg PO QID PRN Muscle Spasm 07/07/23 09/15/23 Unknown History lisinopril 10 mg tablet 10 mg PO DAILY 09/15/23 09/15/23 Unknown History metoprolol succinate 25 mg 25 mg PO DAILY 09/15/23 09/15/23 Unknown History tablet,extended release 24 hr tamsulosin 0.4 mg capsule 0.4 mg PO QPM 09/15/23 09/15/23 Unknown History amlodipine 5 mg tablet 5 mg PO DAILY #30 tabs 09/25/23 Unknown Rx prednisone 10 mg tablet See Rx Instructions .Route 09/25/23 Unknown Rx .COMPLEX #92 tabs Allergies Allergy/AdvReac Type Severity Reaction Status Date / Time No Known Allergies Allergy Verified 10/10/23 14:53 Current Medications Generic Name Dose Route Start Last Admin Trade Name Freq PRN Reason Stop Dose Admin Heparin Sodium (Porcine) 5,000 unit 10/10/23 20:50 10/10/23 21:24 Heparin 5,000 Unit/Ml Inj 1 Ml SUBCUT 5,000 unit Q12H EM Administration Dextrose 125 mls @ 750 mls/hr 10/10/23 16:22 10/10/23 18:51 D10w IV Infused NOW PRN Infusion HYPOGLYCEMIA Meropenem 500 mg 10/10/23 21:00 10/10/23 21:24 Meropenem 500 Mg Sdv IVP 500 mg Q12H EM Administration Protocol PFSH Acute 2 PFSH: Medical History Osteomyelitis Decubitus ulcer of sacral region, unstageable Diastolic CHF Cellulitis Cardiomyopathy Falls frequently Periorbital edema of both eyes Skin ulcer Acute on chronic urinary retention Encephalopathy Lactic acidosis Hypothermia Tobacco dependency Multiple sclerosis Troponin level elevated Urinary retention Acute on chronic renal failure Chronic kidney disease Coronary artery disease Lacunar infarction Hyperlipidemia HTN (hypertension) Ischemic cardiomyopathy History of non-ST elevation myocardial infarction (NSTEMI) CHF (congestive heart failure) Surgical History Hx of colonoscopy with polypectomy History of esophagogastroduodenoscopy (EGD) Hx of heart artery stent stents x 2, 2017- unknown vessels Family History Sister Heart disease Hypertension Myocardial infarction Mother Cancer Daughter Myocardial infarction Social History Smoking and tobacco/nicotine status: current every day tobacco/nicotine user cigarettes Packs smoked per day: 0.5 [ Other cigarette details: Cutting down] Alcohol intake: never Substance/Drug Use: unknown Adopted: No Caregiver/support person: No Lives independently: No Marital status: Single Vitals/I&O/Wt Last Vital Signs Temp 97.7 F 10/10/23 21:07 Pulse 105 H 10/10/23 21:07 Resp 18 10/10/23 21:07 BP 128/80 10/10/23 21:07 Pulse Ox 91 10/10/23 21:07 O2 Del Method Room Air 10/10/23 14:43 10/10/23 10/10/23 10/10/23 06:59 14:59 22:59 Intake Total 175 / 175 Balance 175 / 175 Weight last 48 hrs Weight 90.718 kg Physical Exam 2 Narrative: Awake alert, no distress HEENT S1-S2 regular rate and rhythm per report Lungs with clear per report Has edema Skin multiple bruises/skin rash Urinary Catheter Management: Barros: Cath Placed During This Visit: yes Reason for Continuing Indwelling Catheter: Chronic Indwelling Urinary Catheter on Admission Urinary Catheter Date of Insertion: 10/10/23 Data 10/10/23 15:12 10/10/23 20:05 Micro: Microbiology 10/10/23 17:20 Blood Culture - Preliminary Blood SPECIMEN COLLECTED 10/10/23 17:20 Blood Culture - Preliminary Blood SPECIMEN COLLECTED A&P Assessment and plan (1) Acute kidney injury superimposed on CKD: Plan 1. Acute on chronic kidney disease stage III: Baseline creatinine seems to be in the mid 1 range, now has SUSHILA in the setting of acute infection-likely ATN and possible obstruction. Creatinine is at 3.2 on presentation associated with uremia hyperkalemia and metabolic acidosis. Status post fluids, now placed on IV Lasix. -I will give gentle fluids-bicarbonate drip tonight and monitor. 2. Hyperkalemia: Low K diet, status post Kayexalate, monitor, K was 7.2 on presentation down to 6.1 currently. 3. Metabolic acidosis: Mild in the setting of SUSHILA 4. Volume overload: Check echocardiogram, as needed Lasix. 5. History of multiple sclerosis, bedbound and neurogenic bladder with indwelling Barros catheter. Evaluated using audiovisual cart. Time spent 40 minutes. Consult Attestations 2 Medical Necessity Statement: per medicine Coding Level of Care Code Acute Code for [facility] Fwd Diagnoses Acute kidney injury superimposed on CKD N17.9; N18.9
[2023-10-10] MEDS: citric acid-sodium citrate 30 mL UDC 60 ML PO (22:38)
[2023-10-10] MEDS: insulin regular-human 100 units/1 mL 10 UNIT IVP (22:41)
[2023-10-10] MEDS: vancomycin 1,250 MG/250 ML PIGGYBACK 250 MG IV (23:04)
[2023-10-11 00:11] LABS: Glucose Point of Care 103 mg/dL (70-110)
[2023-10-11] MEDS: predniSONE 10 mg Tablet 30 MG PO ×2 (01:14→08:52)
[2023-10-11] MEDS: sodium bicarbonate 1 mEq/mL SDV 50mL 150 MEQ (02:15)
[2023-10-11] MEDS: sodium bicarbonate 150 MEQ in dextrose 5% 1,000 ML 50 MEQ IV (02:16)
[2023-10-11 02:26] LABS: Anion Gap 21.3 (5-19); Blood Urea Nitrogen 74 mg/dL (8-23); Calcium 8.4 mg/dL (8.5-10.5); Carbon Dioxide 23 mmol/L (22-29); Chloride 95 mmol/L (98-107); Creatinine Clr Calc Pharmacy 26.7635; Glomerular Filtration Rate 21.7 mL/min (90-130); Glucose 144 mg/dL (65-115); Osmolality Calculated 302 mOsm/kg (285-295); Potassium 5.3 mmol/L (3.5-5.1); Sodium 134 mmol/L (136-145)
[2023-10-11 05:53] LABS: Basophils # 0.1 10^3/uL (0.0-0.1); Basophils % 0.2 %; Eosinophils % 0.1 %; Hematocrit 37.1 % (37-53); Lymphocytes # 0.5 10^3/uL (0.8-4.8); Lymphocytes % 1.6 %; Mean Corpuscular Volume 77.5 fl (82-101); Mean Platelet Volume 9.7 fL (7.4-10.4); Monocytes # 0.9 10^3/uL (0.2-0.9); Monocytes % 2.9 %; Neutrophils # 31.04 10^3/uL (1.8-7.7); Neutrophils % 94.3 %; Nucleated Red Blood Cells % 0 %; Platelet Count 275 10^3/cmm (157-399); Red Blood Count 4.79 10^6/uL (3.85-5.65); Red Cell Distribution Width 25.2 % (12.1-15.1)
[2023-10-11 06:07] LABS: White Blood Count 32.89 10^3/uL (3.29-11.43)
[2023-10-11 06:18] LABS: Anion Gap 20.5 (5-19); Blood Urea Nitrogen 76 mg/dL (8-23); C Reactive Protein 289.2 mg/L (0.0-4.9); Calcium 8.9 mg/dL (8.5-10.5); Carbon Dioxide 23 mmol/L (22-29); Chloride 95 mmol/L (98-107); Creatinine Clr Calc Pharmacy 27.4042; Glomerular Filtration Rate 20.9 mL/min (90-130); Glucose 163 mg/dL (65-115); Magnesium 2.2 mg/dL (1.7-2.3); Osmolality Calculated 302 mOsm/kg (285-295); Phosphorus 6.7 mg/dL (2.5-4.5); Potassium 5.5 mmol/L (3.5-5.1); Sodium 133 mmol/L (136-145)
--- NOTE | 2023-10-11 06:18 | P.PN_ITS ---
Subjective 2 Subjective: no new complaints Medications: Reviewed: Yes Vitals/I&O/Wt Last Vital Signs Temp 97.7 F 10/10/23 21:07 Pulse 88 10/10/23 22:30 Resp 18 10/10/23 22:30 BP 128/80 10/10/23 21:07 Pulse Ox 94 10/10/23 22:30 O2 Del Method Room Air 10/10/23 22:30 10/10/23 10/10/23 10/11/23 14:59 22:59 06:59 Intake Total 300 / 300 1250 / 1550 Output Total 1700 / 1700 Balance 300 / 300 -450 / -150 Weight last 48 hrs Weight 102.376 kg Weight 90.718 kg Weight 90.718 kg Physical Exam 2 Narrative: Awake alert, no distress HEENT S1-S2 regular rate and rhythm per report Lungs with clear per report Has edema Skin multiple bruises/skin rash Urinary Catheter Management: Barros: Cath Placed During This Visit: yes Reason for Continuing Indwelling Catheter: Chronic Indwelling Urinary Catheter on Admission Urinary Catheter Date of Insertion: 10/10/23 Data 10/11/23 04:36 10/11/23 04:36 Micro: Microbiology 10/10/23 17:20 Blood Culture - Preliminary Blood SPECIMEN COLLECTED 10/10/23 17:20 Blood Culture - Preliminary Blood SPECIMEN COLLECTED A&P Assessment and plan (1) Acute kidney injury superimposed on CKD: Plan 1. Acute on chronic kidney disease stage III: Baseline creatinine seems to be in the mid 1 range, now has SUSHILA in the setting of acute infection-likely ATN and possible obstruction. Creatinine is at 3.2 on presentation associated with uremia hyperkalemia and metabolic acidosis. on IV Lasix. -s/p IVFs last night , Cr 3.0 today , - Arrange Nephrology follow up @ [facility] 2. Hyperkalemia: remains high, Low K diet, ordered Kayexalate, monitor, K was 7.2 on presentation down to 5.5 currently. 3. Metabolic acidosis: Mild in the setting of SUSHILA, monitor , added bicitra 4. h/o CHF with low EF 25 % - presented with Volume overload: on diuretics 5. History of multiple sclerosis, bedbound and neurogenic bladder with indwelling Barros catheter. 6. Leukocytosis , on steroids Evaluated using audiovisual cart. Time spent 20 minutes. Attestations 2 Medical Necessity Statement*: per mediicine Coding Level of Care Code Acute Code for [facility] Fwd Diagnoses Acute kidney injury superimposed on CKD N17.9; N18.9
[2023-10-11 08:01] VITALS: BP 144/92; PULSE 97; TEMP 36.6; O2SAT 96
[2023-10-11] MEDS: metoprolol succinate ER (24 HR) 25 mg Tablet PO (08:49)
[2023-10-11] MEDS: amlodipine 5 mg Tablet PO (08:49)
[2023-10-11] MEDS: sennosides-docusate Tablet 1 TAB PO (08:52)
[2023-10-11] MEDS: heparin 5,000 unit/mL INJ 1 mL 5000 UNIT SUBCUT ×2 (08:52→21:01)
[2023-10-11] MEDS: aspirin 81 mg EC Tablet PO (08:53)
[2023-10-11] MEDS: FUROsemide 10 mg/mL SDV 10mL 60 MG IVP ×2 (08:53→21:05)
[2023-10-11] MEDS: meropenem 500 mg SDV IVP ×2 (09:18→21:04)
[2023-10-11] MEDS: water for injection-sterile 10 ML 5 ML (09:21)
[2023-10-11 09:48] VITALS: PULSE 88; RESP 18; O2SAT 95
[2023-10-11] MEDS: citric acid-sodium citrate 30 mL UDC 60 ML PO (11:06)
[2023-10-11] MEDS: sodium polystyrene sulfonate 15 gm/60 mL Btl 30 GM PO (11:06)
--- NOTE | 2023-10-11 11:22 | P.PN_ITS ---
Subjective 2 Subjective: Patient was asking about skin biopsy which is showing epidermis with occasional eosinophils Patient is stating that he has about 30 tablets left of prednisone at home He was asked me to discharge him I told him that I cannot discharge him because he is still not stable medically to be released his white count is still high which could be from steroids but we have to watch it for now His kidney function has not improved however potassium is better this morning His main concern is that he is not able to sleep in the hospital and he does not want to use any medications to go to sleep Vitals/I&O/Wt Last Vital Signs Temp 97.8 F 10/11/23 08:01 Pulse 88 10/11/23 09:48 Resp 18 10/11/23 09:48 BP 144/92 10/11/23 08:01 Pulse Ox 95 10/11/23 09:48 O2 Del Method Room Air 10/11/23 09:48 10/10/23 10/11/23 10/11/23 22:59 06:59 14:59 Intake Total 300 / 300 1250 / 1550 360 / 360 Output Total 1700 / 1700 3350 / 3350 Balance 300 / 300 -450 / -150 -2990 / -2990 Weight last 48 hrs Weight 102.376 kg Weight 90.718 kg Weight 90.718 kg Physical Exam 2 Narrative: Diffuse rash all over the body With good signs of granulation tissue Acceptable legs Lower extremity wound is weeping with mixture of both blood and clear fluid Unkept appearance Skin tear buttocks central area Awake and alert Currently room air Pleasant cooperative Nonfocal neuroexam no sign of confusion Hemodynamically stable S1, S2 Urinary Catheter Management: Barros: Cath Placed During This Visit: yes Reason for Continuing Indwelling Catheter: Chronic Indwelling Urinary Catheter on Admission Urinary Catheter Date of Insertion: 10/10/23 Data 10/11/23 04:36 10/11/23 04:36 Micro: Microbiology 10/10/23 17:20 Blood Culture - Preliminary Blood SPECIMEN COLLECTED 10/10/23 17:20 Blood Culture - Preliminary Blood SPECIMEN COLLECTED A&P Assessment and plan (1) Systolic congestive heart failure: (2) Ischemic cardiomyopathy: (3) Acute kidney injury superimposed on CKD: (4) UTI (urinary tract infection): (5) Cystitis: (6) Leukocytosis: Qualifiers: Leukocytosis type: unspecified Qualified Code(s): D72.829 - Elevated white blood cell count, unspecified (7) Bilateral cellulitis of lower leg: (8) Rash: (9) Hyperkalemia: (10) Metabolic acidosis: Plan Acute on chronic kidney disease Appreciate nephro recommendations Nephro wants IV bicarb for today Acidosis improving Hyperkalemia improved significantly Adequate urine output Anasarca with underlying systolic CHF with acute exacerbation Add diuretics Lasix 60 mg IV every 12 hours Sepsis likely related to UTI High white count could be secondary to use of prednisone at home Afebrile Cultures negative to date Continue broad-spectrum antibiotics Skin rash: Pathology showing epidermal cyst with eosinophils Currently on prednisone taper no active signs of addisonian crisis Noncompliant Cardiac diet Patient lives with son and a girlfriend patient is stating that he is trying to arrange a nurse from hospice company to help him out He was asked me to discharge him today however agreed to stay when I explained him why he is needing more monitoring in the hospital no signs of encephalopathy at this point Full code DVT prophylaxis heparin Attestations 2 Medical Necessity Statement*: Continue medical management Diagnoses Systolic congestive heart failure I50.20 Ischemic cardiomyopathy I25.5 Acute kidney injury superimposed on CKD N17.9; N18.9 UTI (urinary tract infection) N39.0 Cystitis N30.90 Leukocytosis D72.829 Leukocytosis type: unspecified Bilateral cellulitis of lower leg L03.116; L03.115 Rash R21 Hyperkalemia E87.5 Metabolic acidosis E87.20
[2023-10-11 12:01] VITALS: BP 123/79; PULSE 95; TEMP 36.6; O2SAT 96
[2023-10-11 16:00] VITALS: BP 130/73; PULSE 93; TEMP 36.6; O2SAT 95
[2023-10-11] MEDS: tamsulosin 0.4 mg Capsule PO (17:48)
[2023-10-11 19:57] VITALS: BP 144/71; PULSE 87; RESP 18; TEMP 36.6; O2SAT 95
[2023-10-11] MEDS: nicotine 2 mg Gum BUCCAL (21:00)
[2023-10-11] MEDS: water for injection-sterile 10 ML (21:03)
[2023-10-11 23:25] VITALS: BP 147/87; PULSE 93; RESP 17; TEMP 36.9; O2SAT 96
[2023-10-12 04:00] VITALS: BP 137/84; PULSE 83; RESP 17; TEMP 36.6; O2SAT 93
[2023-10-12 05:42] LABS: Basophils % 0.1 %; Eosinophils # 0.2 10^3/uL (0.0-0.8); Eosinophils % 0.9 %; Lymphocytes # 1.4 10^3/uL (0.8-4.8); Lymphocytes % 6.3 %; Mean Corpuscular HGB Conc 31.1 g/dL (30-55); Mean Corpuscular Hemoglobin 23.7 pg (27-33); Mean Corpuscular Volume 76.1 fl (82-101); Mean Platelet Volume 9.9 fL (7.4-10.4); Monocytes # 1.1 10^3/uL (0.2-0.9); Monocytes % 4.9 %; Neutrophils # 19.75 10^3/uL (1.8-7.7); Neutrophils % 87.2 %; Nucleated Red Blood Cells % 0 %; Platelet Count 280 10^3/cmm (157-399); Red Cell Distribution Width 25.2 % (12.1-15.1); White Blood Count 22.64 10^3/uL (3.29-11.43)
--- NOTE | 2023-10-12 05:55 | PC.NURSE ---
Pt educated on the importance of turning to prevent skin breakdown and further wounds. Pt verbalized understanding and refuses to let staff turn him every 2 hours.
[2023-10-12 06:02] LABS: Anion Gap 17.3 (5-19); Blood Urea Nitrogen 74 mg/dL (8-23); Calcium 8.6 mg/dL (8.5-10.5); Carbon Dioxide 32 mmol/L (22-29); Chloride 91 mmol/L (98-107); Creatinine Clr Calc Pharmacy 34.6477; Glomerular Filtration Rate 28.3 mL/min (90-130); Glucose 147 mg/dL (65-115); Osmolality Calculated 309 mOsm/kg (285-295); Potassium 3.3 mmol/L (3.5-5.1); Sodium 137 mmol/L (136-145)
[2023-10-12 08:00] VITALS: BP 157/85; PULSE 80; TEMP 36.4; O2SAT 96
[2023-10-12] MEDS: meropenem 500 mg SDV IVP ×2 (08:02→20:19)
[2023-10-12] MEDS: water for injection-sterile 10 ML ×2 (08:03→20:20)
[2023-10-12] MEDS: heparin 5,000 unit/mL INJ 1 mL 5000 UNIT SUBCUT ×2 (08:07→20:11)
[2023-10-12] MEDS: FUROsemide 10 mg/mL SDV 10mL 60 MG IVP (08:07)
[2023-10-12] MEDS: predniSONE 10 mg Tablet 30 MG PO (08:08)
[2023-10-12] MEDS: metoprolol succinate ER (24 HR) 25 mg Tablet PO (08:08)
[2023-10-12] MEDS: aspirin 81 mg EC Tablet PO (08:08)
[2023-10-12] MEDS: amlodipine 5 mg Tablet PO (08:08)
--- NOTE | 2023-10-12 08:09 | P.PN_ITS ---
Subjective 2 Subjective: Patient seen and examined. Patient wants to go home. Patient denies fevers or chills. Patient still quantitate urine. Patient states he is eating okay. He has chronic Barros dependent. Denies nausea vomiting or shortness of breath. Medications: Reviewed: Yes Medication Review Details: Current Medications Acetaminophen (Acetaminophen 500 Mg Tablet) 500 mg PO Q4H PRN PRN Reason: fever Albuterol/Ipratropium (Ipratropium-Albuterol 3 Ml Neb) 3 ml INHALATION Q6H PRN PRN Reason: SHORTNESS OF BREATH Amlodipine Besylate (Amlodipine 5 Mg Tablet) 5 mg PO DAILY [facility] Last Admin: 10/12/23 08:08 Dose: 5 mg Aspirin (Aspirin 81 Mg Ec Tablet) 81 mg PO DAILY [facility] Last Admin: 10/12/23 08:08 Dose: 81 mg Furosemide (Furosemide 10 Mg/Ml Sdv 10ml) 60 mg IVP Q12H [facility] Last Admin: 10/12/23 08:07 Dose: 60 mg Heparin Sodium (Porcine) (Heparin 5,000 Unit/Ml Inj 1 Ml) 5,000 unit SUBCUT Q12H [facility] Last Admin: 10/12/23 08:07 Dose: 5,000 unit Dextrose (D10w) 125 mls @ 750 mls/hr IV PRN PRN PRN Reason: HYPOGLYCEMIA Last Infusion: 10/10/23 22:54 Dose: Infused Dextrose (D10w) 125 mls @ 750 mls/hr IV NOW PRN PRN Reason: HYPOGLYCEMIA Last Infusion: 10/10/23 18:51 Dose: Infused Dextrose (D10w) 125 mls @ 750 mls/hr IV PRN PRN PRN Reason: HYPOGLYCEMIA Vancomycin/PEG/NADA/Lysine/Water (Vancocin) 1,250 mg in 250 mls @ 250 mls/hr IV Q36H [facility] Last Infusion: 10/11/23 03:03 Dose: Infused Meropenem (Meropenem 500 Mg Sdv) 500 mg IVP Q12H [facility]; Protocol Last Admin: 10/12/23 08:02 Dose: 500 mg Metoprolol Succinate (Metoprolol Succinate Er (24 Hr) 25 Mg Tablet) 25 mg PO DAILY [facility] Last Admin: 10/12/23 08:08 Dose: 25 mg Nicotine Polacrilex (Nicotine 2 Mg Gum) 2 mg BUCCAL Q2H PRN PRN Reason: NICOTINE CRAVINGS Last Admin: 10/11/23 21:00 Dose: 2 mg Ondansetron HCl (Ondansetron 2 Mg/Ml Sdv 2 Ml) 4 mg IVP Q6H PRN PRN Reason: NAUSEA AND VOMITING Prednisone (Prednisone 10 Mg Tablet) 30 mg PO DAILY [facility] Stop: 10/12/23 09:01 Last Admin: 10/12/23 08:08 Dose: 30 mg Prednisone (Prednisone 20 Mg Tablet) 20 mg PO DAILY [facility] Stop: 10/16/23 09:01 Prednisone (Prednisone 10 Mg Tablet) 10 mg PO DAILY [facility] Stop: 10/19/23 09:01 Senna/Docusate Sodium (Sennosides-Docusate Tablet) 1 tab PO DAILY [facility] Last Admin: 10/12/23 08:09 Dose: Not Given Tamsulosin HCl (Tamsulosin 0.4 Mg Capsule) 0.4 mg PO QPM [facility] Last Admin: 10/11/23 17:48 Dose: 0.4 mg Tizanidine HCl (Tizanidine 4 Mg Tablet) 2 mg PO QID PRN PRN Reason: Muscle Spasm Zolpidem Tartrate (Zolpidem 5 Mg Tablet) 5 mg PO BEDTIME [facility] Last Admin: 10/11/23 21:15 Dose: Not Given Vitals/I&O/Wt Last Vital Signs Temp 97.8 F 10/12/23 04:00 Pulse 83 10/12/23 04:00 Resp 17 10/12/23 04:00 BP 137/84 10/12/23 04:00 Pulse Ox 93 10/12/23 04:00 O2 Del Method Room Air 10/12/23 04:00 10/11/23 10/12/23 10/12/23 22:59 06:59 14:59 Intake Total 970 / 1340 1150 / 2490 Output Total 2300 / 7450 5450 / 48279 Balance -1330 / -6110 -4300 / -84944 Weight last 48 hrs Weight 95.98 kg Weight 102.376 kg Weight 90.718 kg Weight 90.718 kg Physical Exam 2 Narrative: The patient is lying in bed at the 60 degree angle. Vital signs noted. Comfortable no respiratory distress HEENT normocephalic atraumatic. Lungs are clear to auscultation. Heart regular. Abdomen soft positive bowel sounds. Has a Barros catheter. Extremities no edema. Neuro awake alert and oriented. Patient's weakness from multiple sclerosis. Seen and examined with the nurse as this was a telemetry nephrology visit using A/V equipment. Urinary Catheter Management: Barros: Cath Placed During This Visit: yes Reason for Continuing Indwelling Catheter: Other Urinary Catheter Date of Insertion: 10/10/23 Data 10/12/23 04:39 10/12/23 04:39 Micro: Microbiology 10/10/23 15:45 Urine Culture - Preliminary Urine,Clean Catch Gram Negative Rods 10/10/23 17:20 Blood Culture - Preliminary Blood NEGATIVE TO DATE 10/10/23 17:20 Blood Culture - Preliminary Blood NEGATIVE TO DATE A&P Assessment and plan (1) Acute kidney injury superimposed on CKD: Plan 1. Acute on chronic kidney disease stage III: Baseline creatinine seems to be in the mid 1 range, now has SUSHILA in the setting of acute infection-likely ATN and possible obstruction. Creatinine is at 3.2 on presentation associated with hyperkalemia and metabolic acidosis. -Creatinine and urine output are improving. No need for diuretics at this time. 2. Hyperkalemia: remains high, Low K diet, ordered Kayexalate, monitor, K was 7.2 on presentation down to 3.3 status post Kayexalate and diuretics. 3. Metabolic acidosis: M monitor on bicitra 4. h/o CHF with low EF 25 % - presented with Volume overload: He is now having a post acute kidney injury diuresis. Does not need diuretics at this time. 5. History of multiple sclerosis, bedbound and neurogenic bladder with indwelling Barros catheter. 6. Leukocytosis , on steroids. Patient has a gram-negative UTI please follow- up culture and sensitivities. Wean steroids as per medicine. Evaluated using audiovisual cart. Attestations 2 Medical Necessity Statement*: Acute kidney injury improving. Hyperkalemia improved. Patient has heart failure with reduced EF making excellent urine output will hold furosemide at this time. Monitor electrolytes. Discharge planning when primary feels is safe. On discharge please have patient follow-up with nephrology. Time Spent in Patient Care: 16 - 35 minutes (>than 50% of time sp ent in counselling and/or direct pt care on unit) . Coding Level of Care Code Acute Code for Chg Fwd Diagnoses Acute kidney injury superimposed on CKD N17.9; N18.9
[2023-10-12] MEDS: vancomycin 1,250 MG/250 ML PIGGYBACK 250 MG IV (08:11)
[2023-10-12 08:18] VITALS: PULSE 80; RESP 16; O2SAT 94
--- NOTE | 2023-10-12 10:08 | P.PN_ITS ---
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 and ESBL UTI currently on broad-spectrum antibiotics Vitals/I&O/Wt Last Vital Signs Temp 97.5 F L 10/12/23 08:00 Pulse 80 10/12/23 08:18 Resp 16 10/12/23 08:18 BP 157/85 10/12/23 08:00 Pulse Ox 94 10/12/23 08:18 O2 Del Method Room Air 10/12/23 08:18 10/11/23 10/12/23 10/12/23 22:59 06:59 14:59 Intake Total 970 / 1340 1150 / 2490 500 / 500 Output Total 2300 / 7450 5450 / 94731 Balance -1330 / -6110 -4300 / -19428 500 / 500 Weight last 48 hrs Weight 95.98 kg Weight 102.376 kg Weight 90.718 kg Weight 90.718 kg Physical Exam 2 Narrative: Patient is laying supine Awake and alert Currently on room air Pleasant cooperative Nonfocal neuroexam GCS 15 Multiple wounds with granulation tissue Lower extremity wound has dried up no active oozing of blood noted Dried crusted blood noted on left dorsal side of foot Superficial layer of skin is being sloughed off Urinary Catheter Management: Barros: Cath Placed During This Visit: yes Reason for Continuing Indwelling Catheter: Other Urinary Catheter Date of Insertion: 10/10/23 Data 10/12/23 04:39 10/12/23 04:39 Micro: Microbiology 10/10/23 15:45 Urine Culture - Preliminary Urine,Clean Catch Gram Negative Rods 10/10/23 17:20 Blood Culture - Preliminary Blood NEGATIVE TO DATE 10/10/23 17:20 Blood Culture - Preliminary Blood NEGATIVE TO DATE A&P Assessment and plan (1) Systolic congestive heart failure: (2) Acute kidney injury superimposed on CKD: (3) Hyperkalemia: (4) Cystitis: (5) UTI (urinary tract infection): (6) Leukocytosis: Qualifiers: Leukocytosis type: unspecified Qualified Code(s): D72.829 - Elevated white blood cell count, unspecified (7) Bilateral cellulitis of lower leg: (8) Rash: Plan 68-year male with history of MS present to the hospital for decreased urine output through the Barros catheter, Barros catheter was exchanged in the ER which showed improvement in urine output creatinine has been fluctuating however trending down, hyperkalemia was treated aggressively, it has improved, patient has history of MRSA wound infection from chest and ESBL UTI being kept on vancomycin and meropenem since admission, urine culture showing gram-negative crystal, patient keeps asking when could he be discharged home I have told him once leukocytosis is below 15,000 and we have final culture report then will be able to transition him to home, skin biopsy showing skin epidermis full of eosinophils Acute on chronic kidney disease Post renal obstruction Improved after exchange of Barros catheter Creatinine improving Continue diuresis Recurrent cystitis, rule out CAUTI Urine culture showing gram-negative crystal, Anasarca: Improving with diuresis Hyperkalemia: Improved Skin ulcer, diffuse in nature, skin pathology report reviewed Patient was on steroid taper regimen at home I have continued him on 20 mg prednisone during hospitalization he has not shown any sign of addisonian crisis, patient at 36 tablets of prednisone left at home I have used Vaseline, Noncompliant Cardiac diet Patient lives with his son and girlfriend No sign of encephalopathy Patient is able to make decisions for himself Full code DVT prophylaxis: Heparin Attestations 2 Medical Necessity Statement*: Continue medical management Diagnoses Systolic congestive heart failure I50.20 Acute kidney injury superimposed on CKD N17.9; N18.9 Hyperkalemia E87.5 Cystitis N30.90 UTI (urinary tract infection) N39.0 Leukocytosis D72.829 Leukocytosis type: unspecified Bilateral cellulitis of lower leg L03.116; L03.115 Rash R21
[2023-10-12 11:35] VITALS: BP 117/65; PULSE 78; TEMP 36.5; O2SAT 96
[2023-10-12] MEDS: bumetanide 0.25 mg/mL SDV 10 mL 1 MG IVP (12:52)
[2023-10-12] MEDS: bacitracin ointment 28 gm TOPICAL ×2 (14:29→20:11)
[2023-10-12 16:00] VITALS: BP 105/64; PULSE 91; TEMP 36.6; O2SAT 94
[2023-10-12] MEDS: tamsulosin 0.4 mg Capsule PO (17:10)
[2023-10-12 20:00] VITALS: BP 130/74; PULSE 84; RESP 18; TEMP 36.4; O2SAT 94
[2023-10-12] MEDS: zolpidem 5 mg Tablet PO (20:19)
[2023-10-13] VITALS: BP 151/83; PULSE 81; RESP 18; TEMP 36.5; O2SAT 95
[2023-10-13 03:58] LABS: Basophils % 0.1 %; Eosinophils # 0.2 10^3/uL (0.0-0.8); Eosinophils % 1.2 %; Lymphocytes # 1.4 10^3/uL (0.8-4.8); Lymphocytes % 7.7 %; Mean Corpuscular HGB Conc 31.1 g/dL (30-55); Mean Corpuscular Volume 77.2 fl (82-101); Mean Platelet Volume 9.4 fL (7.4-10.4); Monocytes # 1.2 10^3/uL (0.2-0.9); Monocytes % 6.4 %; Neutrophils # 15.56 10^3/uL (1.8-7.7); Neutrophils % 84.2 %; Nucleated Red Blood Cells % 0 %; Platelet Count 264 10^3/cmm (157-399); Red Blood Count 4.92 10^6/uL (3.85-5.65); Red Cell Distribution Width 24.9 % (12.1-15.1); White Blood Count 18.49 10^3/uL (3.29-11.43)
[2023-10-13 04:00] VITALS: BP 109/61; PULSE 64; RESP 17; TEMP 36.9; O2SAT 92
[2023-10-13 04:36] LABS: Alanine Aminotransferase 21 U/L (0-41); Albumin Level 2.9 g/dL (3.5-5.2); Alkaline Phosphatase 117 U/L (40-130); Anion Gap 16.1 (5-19); Aspartate Amino Transferase 15 U/L (0-40); Blood Urea Nitrogen 62 mg/dL (8-23); Calcium 8.5 mg/dL (8.5-10.5); Carbon Dioxide 33 mmol/L (22-29); Chloride 89 mmol/L (98-107); Globulin 4.3 g/dL (1.3-4.6); Glomerular Filtration Rate 37.6 mL/min (90-130); Glucose 133 mg/dL (65-115); Magnesium 1.7 mg/dL (1.7-2.3); Osmolality Calculated 300 mOsm/kg (285-295); Phosphorus 4.1 mg/dL (2.5-4.5); Potassium 3.1 mmol/L (3.5-5.1); Sodium 135 mmol/L (136-145); Total Bilirubin 0.3 mg/dL (0.15-1.2); Total Protein 7.2 g/dL (6.6-8.7)
[2023-10-13 04:39] LABS: Creatinine Clr Calc Pharmacy 43.6459
--- NOTE | 2023-10-13 07:46 | P.PN_ITS ---
Subjective 2 Subjective: wants to go home. skin rash on arms, chest and legs. is urinating. no n/v/d/diaz/cp/sob Medications: Reviewed: Yes Medication Review Details: Current Medications Acetaminophen (Acetaminophen 500 Mg Tablet) 500 mg PO Q4H PRN PRN Reason: fever Albuterol/Ipratropium (Ipratropium-Albuterol 3 Ml Neb) 3 ml INHALATION Q6H PRN PRN Reason: SHORTNESS OF BREATH Amlodipine Besylate (Amlodipine 5 Mg Tablet) 5 mg PO DAILY [facility] Last Admin: 10/12/23 08:08 Dose: 5 mg Aspirin (Aspirin 81 Mg Ec Tablet) 81 mg PO DAILY [facility] Last Admin: 10/12/23 08:08 Dose: 81 mg Bacitracin (Bacitracin Ointment 28 Gm) 0 applic TOPICAL TID [facility]; Protocol Last Admin: 10/12/23 20:11 Dose: 28 applic Bumetanide (Bumetanide 0.25 Mg/Ml Sdv 10 Ml) 1 mg IVP Q24H [facility] Last Admin: 10/12/23 12:52 Dose: 1 mg Emollient Ointment (Petrolatum Oint Pkt 5 Gm) 1 applic TOPICAL PRN PRN PRN Reason: SKIN PROTECTANT Heparin Sodium (Porcine) (Heparin 5,000 Unit/Ml Inj 1 Ml) 5,000 unit SUBCUT Q12H [facility] Last Admin: 10/12/23 20:11 Dose: 5,000 unit Dextrose (D10w) 125 mls @ 750 mls/hr IV PRN PRN PRN Reason: HYPOGLYCEMIA Last Infusion: 10/10/23 22:54 Dose: Infused Dextrose (D10w) 125 mls @ 750 mls/hr IV NOW PRN PRN Reason: HYPOGLYCEMIA Last Infusion: 10/10/23 18:51 Dose: Infused Dextrose (D10w) 125 mls @ 750 mls/hr IV PRN PRN PRN Reason: HYPOGLYCEMIA Vancomycin/PEG/NADA/Lysine/Water (Vancocin) 1,250 mg in 250 mls @ 250 mls/hr IV Q36H [facility] Last Infusion: 10/12/23 09:20 Dose: Infused Meropenem (Meropenem 500 Mg Sdv) 500 mg IVP Q12H [facility]; Protocol Last Admin: 10/12/23 20:19 Dose: 500 mg Metoprolol Succinate (Metoprolol Succinate Er (24 Hr) 25 Mg Tablet) 25 mg PO DAILY [facility] Last Admin: 10/12/23 08:08 Dose: 25 mg Nicotine Polacrilex (Nicotine 2 Mg Gum) 2 mg BUCCAL Q2H PRN PRN Reason: NICOTINE CRAVINGS Last Admin: 10/11/23 21:00 Dose: 2 mg Nicotine Polacrilex (Nicotine 4 Mg Lozenge) 4 mg MUCOUS MEM Q8H PRN PRN Reason: NICOTINE CRAVINGS Ondansetron HCl (Ondansetron 2 Mg/Ml Sdv 2 Ml) 4 mg IVP Q6H PRN PRN Reason: NAUSEA AND VOMITING Prednisone (Prednisone 20 Mg Tablet) 20 mg PO DAILY [facility] Stop: 10/15/23 09:00 Senna/Docusate Sodium (Sennosides-Docusate Tablet) 1 tab PO DAILY [facility] Last Admin: 10/12/23 08:09 Dose: Not Given Tamsulosin HCl (Tamsulosin 0.4 Mg Capsule) 0.4 mg PO QPM [facility] Last Admin: 10/12/23 17:10 Dose: 0.4 mg Tizanidine HCl (Tizanidine 4 Mg Tablet) 2 mg PO QID PRN PRN Reason: Muscle Spasm Zolpidem Tartrate (Zolpidem 5 Mg Tablet) 5 mg PO BEDTIME [facility] Last Admin: 10/12/23 20:19 Dose: 5 mg Vitals/I&O/Wt Last Vital Signs Temp 98.4 F 10/13/23 04:00 Pulse 64 10/13/23 04:00 Resp 17 10/13/23 04:00 BP 109/61 10/13/23 04:00 Pulse Ox 92 10/13/23 04:00 O2 Del Method Room Air 10/13/23 04:00 10/12/23 10/13/23 10/13/23 22:59 06:59 14:59 Intake Total 934 / 1434 Output Total 750 / 2800 1850 / 4650 Balance 184 / -1366 -1850 / -3216 Weight last 48 hrs Weight 93.123 kg Weight 95.98 kg Physical Exam 2 Narrative: The patient is lying in bed, comfortable, NARD. Vital signs noted. HEENT normocephalic atraumatic. Lungs are clear to auscultation. Heart regular. Abdomen soft positive bowel sounds. Has a Barros catheter. Extremities no edema. Neuro awake alert and oriented. Patient's weakness from multiple sclerosis. skin multiple red lesions diffusely Seen and examined with the nurse as this was a telemetry nephrology visit using A/V equipment. Urinary Catheter Management: Barros: Cath Placed During This Visit: yes Reason for Continuing Indwelling Catheter: Other Urinary Catheter Date of Insertion: 10/10/23 Data 10/13/23 02:10 10/13/23 02:10 Micro: Microbiology 10/10/23 15:45 Urine Culture - Preliminary Urine,Clean Catch Gram Negative Rods A&P Assessment and plan (1) Acute kidney injury superimposed on CKD: Plan 1. Acute on chronic kidney disease stage III: Baseline creatinine seems to be in the mid 1 range, now has SUSHILA in the setting of acute infection-likely ATN and possible obstruction. Creatinine is at 3.2 on presentation associated with hyperkalemia and metabolic acidosis. -Creatinine and urine output are improving. No need for diuretics at this time. 2. Hyperkalemia: remains high, Low K diet, ordered Kayexalate, monitor, K was 7.2 on presentation. potassium is now low due to diuretics and poat SUSHILA Diuresiss replace k. 3. Metabolic acidosis:now alkalotic. stop bicarb and diuretics 4. h/o CHF with low EF 25 % - presented with Volume overload: He is now having a post acute kidney injury diuresis. Does not need diuretics at this time. 5. History of multiple sclerosis, bedbound and neurogenic bladder with indwelling Barros catheter. 6. Leukocytosis , on steroids. Patient has a gram-negative UTI please follow- up culture and sensitivities. Wean steroids as per medicine for skin rash -consider trial of void s per medicine medications reviewed discussed w/ pt and RN Evaluated using audiovisual cart. Attestations 2 Medical Necessity Statement*: sushila improving. now hypokalemia and alkalosis Time Spent in Patient Care: 16 - 35 minutes (>than 50% of time sp ent in counselling and/or direct pt care on unit) . Coding Level of Care Code Acute Code for Chg Fwd Diagnoses Acute kidney injury superimposed on CKD N17.9; N18.9
[2023-10-13 08:00] VITALS: BP 118/68; PULSE 62; RESP 20; TEMP 36.5; O2SAT 96
[2023-10-13 08:51] LABS: Vancomycin Random 25.9 ug/mL (20.0-40.0)
[2023-10-13] MEDS: aspirin 81 mg EC Tablet PO (09:05)
[2023-10-13] MEDS: sennosides-docusate Tablet 1 TAB PO (09:05)
[2023-10-13] MEDS: predniSONE 20 mg Tablet PO (09:05)
[2023-10-13] MEDS: potassium chloride ER 20 mEq Tablet 40 MEQ PO ×2 (09:05→13:18)
[2023-10-13] MEDS: metoprolol succinate ER (24 HR) 25 mg Tablet PO (09:05)
[2023-10-13] MEDS: heparin 5,000 unit/mL INJ 1 mL 5000 UNIT SUBCUT (09:06)
[2023-10-13] MEDS: meropenem 500 mg SDV IVP (09:06)
[2023-10-13] MEDS: amlodipine 5 mg Tablet PO (09:06)
[2023-10-13] MEDS: water for injection-sterile 10 ML 5 ML (09:07)
[2023-10-13] MEDS: bacitracin ointment 28 gm TOPICAL ×2 (09:08→17:17)
--- NOTE | 2023-10-13 09:11 | PC.CHAP ---
Pastoral Care Encounter/Spiritual Assessment Type of Contact [] Declined hat blocking operator visit [] Patient/Family/Request visit [] Outpatient visit [] Follow-up visit [] Physician referral [] Code/Alert [x] Routine visit [] Staff referral [] Actively dying [] Patient sleeping [] Family support [] [] Out of room [] Palliative care [] [] Receiving care in room [] Pre-surgical visit [] Trauma [] Long length of stay [] ICU visit [] Other: Relational/Emotional Strength [] Patient feels connected with others/family/visitors/staff [] Distress [] Loneliness/isolation [] Abandonment Spirituality of Patient [] Person of [place] [] Attends Adventism of their [place] [] Believes in Prayer [] Reads Bible or Confucianist materials [] There are Spiritual issues to be addressed Recreation Manager Interventions [x] Prayer [] Active listening [] Non-anxious presence [] Spiritual/emotional support [] Crisis/trauma care [] Spiritual counseling [] Bereavement support [] Provided bereavement packet [] Provided Bible/devotional materials [] Provided toy/stuffed animal, coloring book to patient or family member [] Provided Communion [] Anointing/[place] [] Salvation [] Completed spiritual assessment [] Other: Impact on Illness or Injury [] Angry [] Fearful [] Anxious [] Often cries [] Exhaustion [] Unable to work [] Unable to attend temple [] Unable to walk/stand [] Unable to read [] Unable to drive [] Unable to eat/drink [] Unable to sleep [] Unable to be with family [] Patient intubated [] Other: Summary precaution Time spent with patient
--- NOTE | 2023-10-13 12:38 | PM.DCS ---
Discharge Providers Date of Admission: 10/10/23 20:01 Date of Discharge: October 13, 2023 Attending Provider at Admission: Ted Garcia MD Attending Provider at Discharge: Anette Jones MD Primary Care Provider: AUGUSTINE Craig Diagnoses at Discharge Discharge Diagnosis (1) Acute kidney injury superimposed on CKD: Status: Acute Reason for Visit Reason for Visit: liu trouble Hospital Course Hospital Course Patient is a 68-year-old male with multiple significant comorbidities including multiple sclerosis which makes him bedbound, chronic longstanding sacral ulcer with history of osteomyelitis treated in 2022, neurogenic bladder, chronic Liu catheter, ischemic cardiomyopathy with last known ejection fraction from stress test at 29% in July of this year. Also has CKD. He is currently improving from her recent admission until October 03, 2023 when he had presented with UTI related to ESBL Proteus mirabilis. And CHF exacerbation. 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 He is currently admitted on October 10, 2023 with a reduced urine output and a blocked Liu. He had been noticing increased clumps in his Liu, uncertain if he flushes his Liu as recommended. It appears home health was recommended on last discharge, however patient states he never got services due to his skin rash. I am uncertain why this may be. His drug rash is certainly not infectious in nature. Herpetic involvement was ruled out at the time of last discharge. He is currently on a steroid taper for the same. He is down from 60 mg daily prednisone to 20 mg daily now. Liu catheter was changed in the emergency room and patient wanted to leave however eventually patient was able to be convinced to stay in view of her UTI and hematuria. He had hyperkalemia for which she received Kayexalate insulin and bicarb. He had a white blood cell count of 33,000 which has improved since down to 18,000 today. Patient has been afebrile during the course of his admission. He had SUSHILA on CKD with creatinine peaking at 3.0 previously known baseline is between 1.5-1.8. He is now down to creatinine of 1.8 at time of discharge. Diuretics have been on hold as patient is clinically euvolemic. Active issues during this current admission have included a blocked Liu catheter which was replaced. Patient has had improvement in creatinine and leukocytosis since then. He has leukocytosis, 33,000 improving to 18,000. Patient does not currently have any residual signs or symptoms of sepsis. His white blood cell count may have been elevated related to acute stress from a blocked Liu versus high-dose steroid use recently. 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 His urine culture is showing gram-negative rods, in reviewing his past cultures, patient has had Proteus mirabilis, E. coli, Enterococcus, Enterobacter, Klebsiella grew on multiple cultures. Favor chronic colonization of an indwelling Liu catheter to be the culprit here. Repeated courses of antibiotics are unlikely to be helpful in this situation. Goal would be to treat patient with short courses of antibiotics as and when needed. Currently patient has shown significant improvement after being on antibiotics for 4 days. Would discontinue antibiotics at the time of discharge as I have very low suspicion of persisting infection at this time. Patient understands and agrees with management. Patient has ischemic cardiomyopathy, as of last stress test performed in July 2023, his EF is down to 29% with multiple areas of wall motion abnormalities. He has markedly dilated LV cavity and severe diffuse hypokinesia of the left ventricle. Patient is not interested in exploring this any further. He does not wish to follow outpatient with cardiology as he already believes there are too many doctors involved in his care. His last cardiac stent was in 2021. Reviewed his medication list, patient is currently on aspirin and Plavix. I have discontinued Plavix at this time as it may be associated with severe eosinophilic drug rash. He is unlikely to be benefited from DAPT given that his last stent was over 2 years ago. Patient agrees with this recommendation. Discussed with him the high risk of arrhythmia as a fatal event. Ideally at an EF less than 35%, consideration may be given to AICD versus LifeVest, again patient is not interested in exploring this further. He has stated that he wishes to change his CODE STATUS to DNR/DNI. States that should he have a fatal arrhythmia that he should be let go. Discussed with him the importance of follow-up with both wound care and dermatology, again patient states that there are already too many doctors involved in his care and he would not want to follow-up with either referral. He states that he can change his sacral wound dressing by himself. Given that his goals of care appear to be towards symptomatic management only at this time, discussed transitioning to hospice care, however patient states he is not ready for the same. He still wishes to come back to the hospital for acute issues and states that he is not yet ready to at home. Overall this does appear to be in conflict with his other stated goals and history of noncompliance however patient states that for today he just wishes to be discharged home at the earliest and he will come back if needed. He remains at a very high risk of recurrent readmissions. Physical Exam Narrative: General: No acute distress, AO x3 HEENT: PERRLA, pupils bilaterally equal and reactive, pallors not present Chest: Normal vesicular breath sounds, no added sounds, equal good air entry bilaterally CVS: S1-S2 regular, no murmurs, no tachycardia, no gallops, no rubs Abdomen: Soft, nontender, no organomegaly, bowel sounds present Neuro: No focal deficits, no facial deformity, AO x3, power 5/5 in all limbs Extremities: Desquamating rash affecting face upper chest lower extremities, most of them appear to be in various stages of healing with overlying scab. Urinary Catheter Management: Liu: Cath Placed During This Visit: yes Reason for Continuing Indwelling Catheter: Other Urinary Catheter Date of Insertion: 10/10/23 Discharge Data Studies Completed and Pending Completed Studies During Hospitalization Category Date Time Status CT kidney stone [address]83 Urgent Cat Scan 10/10/23 17:41 Completed Pending at discharge Category Date Time Status Blood Culture Stat Lab 10/10/23 17:20 Results Complete Blood Count w/Auto AM LABS Lab 10/14/23 04:00 Ordered Complete Blood Count w/Auto AM LABS Lab 10/14/23 04:00 Ordered Complete Blood Count w/Auto AM LABS Lab 10/15/23 04:00 Ordered Complete Blood Count w/Auto AM LABS Lab 10/15/23 04:00 Ordered Complete Blood Count w/Auto AM LABS Lab 10/16/23 04:00 Ordered Comprehensive Metabolic Panel AM LABS Lab 10/14/23 04:00 Ordered Comprehensive Metabolic Panel AM LABS Lab 10/14/23 04:00 Ordered Comprehensive Metabolic Panel AM LABS Lab 10/15/23 04:00 Ordered Comprehensive Metabolic Panel AM LABS Lab 10/15/23 04:00 Ordered Comprehensive Metabolic Panel AM LABS Lab 10/16/23 04:00 Ordered Magnesium AM LABS Lab 10/14/23 04:00 Ordered Magnesium AM LABS Lab 10/14/23 04:00 Ordered Magnesium AM LABS Lab 10/15/23 04:00 Ordered Magnesium AM LABS Lab 10/15/23 04:00 Ordered Magnesium AM LABS Lab 10/16/23 04:00 Ordered Phosphorus AM LABS Lab 10/14/23 04:00 Ordered Phosphorus AM LABS Lab 10/14/23 04:00 Ordered Phosphorus AM LABS Lab 10/15/23 04:00 Ordered Phosphorus AM LABS Lab 10/15/23 04:00 Ordered Phosphorus AM LABS Lab 10/16/23 04:00 Ordered Sputum Culture and Gram Stain Stat Lab 10/11/23 00:23 Uncollected Urine Culture Stat Lab 10/10/23 15:45 Results Vancomycin Random AM LABS Lab 10/14/23 04:00 Ordered Vancomycin Trough Timed Lab 10/13/23 20:00 Ordered Radiology Impressions Abdomen/Pelvis CT 10/10/23 17:41 IMPRESSION: 1. The bladder wall is thickened. This is nonspecific and may represent bladder outlet obstruction, inflammation or infection. Neoplastic process is included in the differential. 2. There is noncalcified heterogeneous density in the left renal pelvis and mild bilateral perinephric and periureteral stranding raising concern for ascending urinary tract infection with pyelonephritis. CT scan of the abdomen/pelvis with IV contrast and delayed images, renal protocol, is recommended for further evaluation. COMMENTS: Consistent with the [employer]'s Incidental Findings Committee white paper (J Am Vipul Radiol 2018): Any incidental renal lesion less than 1 cm or classified as too small to characterize, or any incidental cystic renal lesion characterized as simple-appearing, is likely benign. No follow-up imaging is recommended for these lesions per consensus recommendations based on imaging criteria. Laboratory Results WBC 18.49 10^3/uL (3.29-11.43) H 10/13/23 02:10 RBC 4.92 10^6/uL (3.85-5.65) 10/13/23 02:10 Hgb 11.80 g/dL (11.27-16.99) 10/13/23 02:10 Hct 38.0 % (37-53) 10/13/23 02:10 MCV 77.2 fl (82-101) L 10/13/23 02:10 MCH 24.0 pg (27-33) L 10/13/23 02:10 MCHC 31.1 g/dL (30-55) 10/13/23 02:10 RDW 24.9 % (12.1-15.1) H 10/13/23 02:10 Plt Count 264 10^3/cmm (157-399) 10/13/23 02:10 MPV 9.4 fL (7.4-10.4) 10/13/23 02:10 Neut % (Auto) 84.2 % 10/13/23 02:10 Lymph % (Auto) 7.7 % 10/13/23 02:10 Millard % (Auto) 6.4 % 10/13/23 02:10 Eos % (Auto) 1.2 % 10/13/23 02:10 Baso % (Auto) 0.1 % 10/13/23 02:10 Neut # (Auto) 15.56 10^3/uL (1.8-7.7) H 10/13/23 02:10 Lymph # (Auto) 1.4 10^3/uL (0.8-4.8) 10/13/23 02:10 Millard # (Auto) 1.2 10^3/uL (0.2-0.9) H 10/13/23 02:10 Eos # (Auto) 0.2 10^3/uL (0.0-0.8) 10/13/23 02:10 Baso # (Auto) 0.0 10^3/uL (0.0-0.1) 10/13/23 02:10 Nucleated RBC % (auto) 0 % 10/13/23 02:10 Nucleated RBCs # 0.0 /100WBC 10/13/23 02:10 Sodium 135 mmol/L (136-145) L 10/13/23 02:10 Potassium 3.1 mmol/L (3.5-5.1) L 10/13/23 02:10 Chloride 89 mmol/L (98-107) L 10/13/23 02:10 Carbon Dioxide 33 mmol/L (22-29) H 10/13/23 02:10 Anion Gap 16.1 (5-19) 10/13/23 02:10 BUN 62 mg/dL (8-23) H 10/13/23 02:10 Creatinine 1.8 mg/dL (0.7-1.2) H 10/13/23 02:10 GFR Calculation 37.6 mL/min (90-130) L 10/13/23 02:10 Glucose 133 mg/dL (65-115) H 10/13/23 02:10 POC Glucose 103 mg/dL (70-110) 10/11/23 00:06 Calculated Osmolality 300 mOsm/kg (285-295) H 10/13/23 02:10 Lactic Acid 1.6 mmol/L (0.5-2.2) 10/10/23 17:20 Calcium 8.5 mg/dL (8.5-10.5) 10/13/23 02:10 Phosphorus 4.1 mg/dL (2.5-4.5) 10/13/23 02:10 Magnesium 1.7 mg/dL (1.7-2.3) 10/13/23 02:10 Total Bilirubin 0.3 mg/dL (0.15-1.2) 10/13/23 02:10 AST 15 U/L (0-40) 10/13/23 02:10 ALT 21 U/L (0-41) 10/13/23 02:10 Alkaline Phosphatase 117 U/L (40-130) 10/13/23 02:10 C-Reactive Protein 289.2 mg/L (0.0-4.9) H 10/11/23 04:36 Total Protein 7.2 g/dL (6.6-8.7) 10/13/23 02:10 Albumin 2.9 g/dL (3.5-5.2) L 10/13/23 02:10 Globulin 4.3 g/dL (1.3-4.6) 10/13/23 02:10 Urine Color Red (Yellow) A 10/10/23 15:45 Urine Appearance Turbid (CLEAR) A 10/10/23 15:45 Urine pH Not Reportable 10/10/23 15:45 Ur Specific [place] Not Reportable 10/10/23 15:45 Urine Protein Not Reportable 10/10/23 15:45 Urine Glucose (UA) Not Reportable 10/10/23 15:45 Urine Ketones Not Reportable 10/10/23 15:45 Urine Blood Not Reportable 10/10/23 15:45 Urine Nitrate Not Reportable 10/10/23 15:45 Urine Bilirubin Not Reportable 10/10/23 15:45 Urine Urobilinogen Not Reportable 10/10/23 15:45 Ur Leukocyte Esterase Not Reportable 10/10/23 15:45 Urine RBC Too numerous to cnt /hpf (0-2) H 10/10/23 15:45 Urine WBC Too numerous to cnt /hpf (0-5) H 10/10/23 15:45 Ur Squamous Epith Cells None /hpf (0-5) 10/10/23 15:45 Amorphous Sediment Not Reportable 10/10/23 15:45 Urine Bacteria 3+ /hpf (NONE) H 10/10/23 15:45 Random Vancomycin 25.9 ug/mL (20.0-40.0) 10/13/23 02:10 Vitals Last Vital Signs Temp 97.7 F 10/13/23 08:00 Pulse 62 10/13/23 08:00 Resp 20 H 10/13/23 08:00 BP 118/68 10/13/23 08:00 Pulse Ox 96 10/13/23 08:00 O2 Del Method Room Air 10/13/23 08:00 Discharge Plan Discharge Patient Disposition: Home Condition: Stable Prescriptions: Continued nitroglycerin 0.4 mg tablet, sublingual 0.4 mg SUBLINGUAL Q5M PRN (Reason: chest pain) Qty: 30 4RF Rx Instructions: until response; do not exceed 3 doses per episode aspirin 81 mg Tablet,Delayed Release (Dr/Ec) 81 mg PO DAILY Qty: 30 0RF tizanidine 4 mg tablet 2 mg PO QID PRN (Reason: Muscle Spasm) furosemide 40 mg tablet 40 mg PO DAILY PRN (Reason: Edema) atorvastatin 40 mg tablet 40 mg PO QPM acetaminophen 325 mg Tablet 650 mg PO QID PRN (Reason: Pain) tamsulosin 0.4 mg capsule 0.4 mg PO QPM metoprolol succinate 25 mg tablet extended release 24 hr 25 mg PO DAILY amlodipine 5 mg Tablet 5 mg PO DAILY Qty: 30 0RF prednisone 10 mg tablet See Rx Instructions .ROUTE .COMPLEX Qty: 92 0RF Rx Instructions: 60 mg daily x 4D 50 mg daily x 4d 40 mg daily x 4d 30 mg daily x 3d 20 mg daily x 3d 10 mg daily x 3d 5 mg daily x 3d, then stopped carvedilol 12.5 mg tablet 12.5 mg PO BID hydralazine 25 mg tablet 25 mg PO TID triamcinolone acetonide 0.1 % cream 1 applic TOPICAL DAILY Held lisinopril 10 mg tablet 10 mg PO DAILY Hold Instructions: Resume on 10/20/23. Discontinued clopidogrel 75 mg tablet 75 mg PO QAM Qty: 90 0RF Discharge Orders: Discharge Order (Routine); Ordered 10/13/23 Ordered By: Anette Jones Referrals: Raymon Min FNP [Primary Care Provider] - Discharge Diet: Usual diet Discharge Activity: Resume usual activity Patient Instructions: Opioid Safety Discharge Attestations Time Spent in Discharge Care*: greater than 30 min Status at Discharge: Cognitive status at discharge: cognitively intact, Behavioral status at discharge: cooperative and can be uncooperative, Quality Metrics Clinical Quality Measures [ No reported AMI, CVA or VTE this stay] Coding Level of Care Code Acute Code for Chg Fwd Diagnoses Acute kidney injury superimposed on CKD N17.9; N18.9
--- NOTE | 2023-10-13 15:08 | PC.SOCIAL ---
IMM updated IMM initialed and dated, copy given to patient and placed in chart.
[2023-10-13 16:00] VITALS: PULSE 78; RESP 20; TEMP 36.4; O2SAT 96
[2023-10-13] MEDS: tamsulosin 0.4 mg Capsule PO (17:19)
[2023-10-13 18:58] VITALS: PULSE 78; RESP 20; TEMP 36.4; O2SAT 96
== END 2023-10-13 18:30 | disposition home health service (06) | DRG 682 ==
LOC: ER 19:29 → MEDSURG 20:02
PROVIDERS: Emergency Medicine; Hospitalist; Internal Medicine Nephrology; Admitting Provider Internal Medicine; Emergency Provider Emergency Medicine; PCP Nurse Practitioner Family; Visit Provider Student in an Organized Health Care Education/Training Program
DX: N17.9 Acute kidney failure, unspecified (principal); I50.23 Acute on chronic systolic (congestive) heart failure; N39.0 Urinary tract infection, site not specified; E87.20 Acidosis, unspecified; I13.0 Hypertensive heart and chronic kidney disease with heart failure and stage 1 through stage 4 chronic kidney disease, or unspecified chronic kidney disease; N18.30 Chronic kidney disease, stage 3 unspecified; E87.5 Hyperkalemia; N30.91 Cystitis, unspecified with hematuria; B96.4 Proteus (mirabilis) (morganii) as the cause of diseases classified elsewhere; B96.20 Unspecified Escherichia coli [E. coli] as the cause of diseases classified elsewhere; B95.2 Enterococcus as the cause of diseases classified elsewhere; B96.89 Other specified bacterial agents as the cause of diseases classified elsewhere; B96.1 Klebsiella pneumoniae [K. pneumoniae] as the cause of diseases classified elsewhere; Z91.199 Patient's noncompliance with other medical treatment and regimen due to unspecified reason; T83.098A Other mechanical complication of other urinary catheter, initial encounter; Y99.9 Unspecified external cause status; Z79.82 Long term (current) use of aspirin; Z79.02 Long term (current) use of antithrombotics/antiplatelets; Z66 Do not resuscitate; R21 Rash and other nonspecific skin eruption; F17.210 Nicotine dependence, cigarettes, uncomplicated; G35 Multiple sclerosis; Z74.01 Bed confinement status; N31.9 Neuromuscular dysfunction of bladder, unspecified; L89.159 Pressure ulcer of sacral region, unspecified stage; I25.5 Ischemic cardiomyopathy
CPT/HCPCS: 36415; 36416; 51702; 74176; 80048; 80053; 80202; 81001; 82962; 83605; 83735; 84100; 85025; 86140; 87040; 87077; 87086; 87186; 93005; 96361; 96365; 96372; 96375; 99285; J0612; J0696; J1644; J1815; J1940; J2185; J2543; J3370; J3490; J7030; J7070; J7512; J7799

== ENCOUNTER 2023-10-22 20:43 | Emergency (ER) | payer MEDICARE, MEDICAID, SELFPAY ==
[2023-10-22 20:44] VITALS: BP 159/96; PULSE 99; RESP 16; TEMP 36.7; O2SAT 97; BMI 29.5
[2023-10-22 21:37] VITALS: PULSE 93; O2SAT 100
--- NOTE | 2023-10-22 22:03 | ED_ITS ---
HPI - Male Genitourinary 2 General: Chief complaint: Urogenital-Male Stated complaint: urinary catheter problems Time Seen by Provider: 10/22/23 21:21 History of Present Illness: Presents to the ER with complaints of Barros catheter leaking and saturating his bottom and now he has a sore on his right butt cheek. Otherwise no complaints. Patient does state he is on hospice at this time but is unknown for sure what for. Patient was just discharged from here on 7 8 for cystitis, leukocytosis, hyperkalemia, acute kidney injury superimposed on chronic kidney disease, Review of Systems 2 General: Reports: 10 or more systems reviewed and unremarkable except in HPI and below PFSH ED 2 PFSH: Medical History Osteomyelitis Decubitus ulcer of sacral region, unstageable Diastolic CHF Cellulitis Cardiomyopathy Falls frequently Periorbital edema of both eyes Skin ulcer Acute on chronic urinary retention Encephalopathy Lactic acidosis Hypothermia Tobacco dependency Multiple sclerosis Troponin level elevated Urinary retention Acute on chronic renal failure Chronic kidney disease Coronary artery disease Lacunar infarction Hyperlipidemia HTN (hypertension) Ischemic cardiomyopathy History of non-ST elevation myocardial infarction (NSTEMI) CHF (congestive heart failure) Surgical History Hx of colonoscopy with polypectomy History of esophagogastroduodenoscopy (EGD) Hx of heart artery stent stents x 2017- unknown vessels Family History Sister Heart disease Hypertension Myocardial infarction Mother Cancer Daughter Myocardial infarction Social History Smoking and tobacco/nicotine status: current every day tobacco/nicotine user cigarettes Packs smoked per day: 0.5 [ Other cigarette details: Cutting down] Alcohol intake: never Substance/Drug Use: unknown Adopted: No Caregiver/support person: No Lives independently: No Marital status: Single Physical Exam 2 Const: COMMON NORMALS: no acute distress, average body habitus, patient oriented x3, no limitations, healthy appearing, alert and well nourished HENMT: COMMON NORMALS: normocephalic, atraumatic, hearing grossly normal bilaterally, external ears normal, Normal external nose present and moist oral mucous membranes HEAD & SCALP: normocephalic and atraumatic NOSE: Normal external nose present EXTERNAL EAR: Yes external ears normal Neck/C-Spine: COMMON NORMALS: no JVD Chest: COMMONS NORMALS: normal inspection of the chest and normal palpation of entire chest wall Resp: COMMON NORMALS: normal respiratory effort, No retractions, No use of accessory muscles and clear to auscultation bilaterally AUSCULTATION: clear to auscultation bilaterally Cardio: COMMON NORMALS: no JVD, regular rate, regular rhythm, S1 normal heart sound present, S2 normal heart sound present, No gallops present (Cardio) and No clicks present (Cardio) RATE: regular rate RHYTHM: regular rhythm HEART SOUNDS: S1 normal heart sound present and S2 normal heart sound present GI: COMMON NORMALS: Normal to inspection, nondistended, normoactive bowel sounds present, Soft to palpation, non-tender, No hepatosplenomegaly present and no masses PALPATION: Yes Soft to palpation and Yes No hepatosplenomegaly present Neuro: COMMON NORMALS: patient oriented x3 SENSORIUM/ORIENTATION: Yes alert Skin: NARRATIVE SKIN EXAM: Approximately 3 cm area of excoriation and sloughed skin on the left buttock consistent with friction type burn. Patient has noted to be sitting in a serosanguineous type fluid which could be hematuria or fluid from his buttock wound. Course 2 Vital Signs: Vital signs: Vital Signs Temperature 98.0 F 10/22/23 20:44 Pulse Rate 93 10/23/23 01:38 Respiratory Rate 18 10/23/23 00:14 Blood Pressure 159/96 10/22/23 20:44 Pulse Oximetry 96 10/23/23 01:38 Oxygen Delivery Me thod Room Air 10/23/23 01:38 MDM - Male Medical Decision Making Patient presents to the ER and was physically examined noted to have serosanguineous urine draining around his Barros catheter and a excoriated spot on his left buttock region. We lane labs and noted him to have an increase in potassium and increasing BUN and creatinine which all of these are chronic. We bolused him 1 L of fluid gave him 10 units of IV insulin 250 m milliliters of D10 and 1 g of calcium gluconate we rechecked his potassium about 4 hours later and his decreased down to 5.7 his BUN had decreased down to 2.7 these results was discussed with the patient as well as the ability to place him inpatient if he desired he said he can follow-up at home with a hospice nurse she can draw blood and recheck his potassium and BUN. Patient does not want to be placed inpatient at this time. Patient will be discharged. Urine showed urinary tract infection, previous sensitivity to Augmentin, this is unknown if it is a real infection or just catheter contamination but we will treat him. Lab Data 10/22/23 21:47 10/23/23 02:27 Laboratory Results WBC 18.29 10^3/uL (3.29-11.43) H 10/22/23 21:47 RBC 4.62 10^6/uL (3.85-5.65) 10/22/23 21:47 Hgb 11.30 g/dL (11.27-16.99) 10/22/23 21:47 Hct 37.1 % (37-53) 10/22/23 21:47 MCV 80.3 fl (82-101) L 10/22/23 21:47 MCH 24.5 pg (27-33) L 10/22/23 21:47 MCHC 30.5 g/dL (30-55) 10/22/23 21:47 RDW 24.0 % (12.1-15.1) H 10/22/23 21:47 Plt Count 356 10^3/cmm (157-399) 10/22/23 21:47 MPV 8.9 fL (7.4-10.4) 10/22/23 21:47 Neut % (Auto) 96.0 % 10/22/23 21:47 Lymph % (Auto) 1.6 % 10/22/23 21:47 Angelina % (Auto) 1.5 % 10/22/23 21:47 Eos % (Auto) 0.2 % 10/22/23 21:47 Baso % (Auto) 0.2 % 10/22/23 21:47 Neut # (Auto) 17.55 10^3/uL (1.8-7.7) H 10/22/23 21:47 Lymph # (Auto) 0.3 10^3/uL (0.8-4.8) L 10/22/23 21:47 Angelina # (Auto) 0.3 10^3/uL (0.2-0.9) 07/17/24 21:47 Eos # (Auto) 0.0 10^3/uL (0.0-0.8) 10/22/23 21:47 Baso # (Auto) 0.0 10^3/uL (0.0-0.1) 10/22/23 21:47 Nucleated RBC % (auto) 0 % 10/22/23 21:47 Nucleated RBCs # 0.0 /100WBC 10/22/23 21:47 Sodium 136 mmol/L (136-145) 10/23/23 02:27 Potassium 5.7 mmol/L (3.5-5.1) H 10/23/23 02:27 Chloride 101 mmol/L (98-107) 10/23/23 02:27 Carbon Dioxide 22 mmol/L (22-29) 10/23/23 02:27 Anion Gap 18.7 (5-19) 10/23/23 02:27 BUN 58 mg/dL (8-23) H 10/23/23 02:27 Creatinine 2.7 mg/dL (0.7-1.2) H 10/23/23 02:27 GFR Calculation 23.5 mL/min (90-130) L 10/23/23 02:27 Glucose 219 mg/dL (65-115) H 10/23/23 02:27 Calculated Osmolality 305 mOsm/kg (285-295) H 10/23/23 02:27 Calcium 9.0 mg/dL (8.5-10.5) 10/23/23 02:27 Total Bilirubin 0.3 mg/dL (0.15-1.2) 10/22/23 22:27 AST 13 U/L (0-40) 10/22/23 22:27 ALT 17 U/L (0-41) 10/22/23 22:27 Alkaline Phosphatase 155 U/L (40-130) H 10/22/23 22:27 Total Protein 7.8 g/dL (6.6-8.7) 10/22/23 22:27 Albumin 3.3 g/dL (3.5-5.2) L 10/22/23 22:27 Globulin 4.5 g/dL (1.3-4.6) 10/22/23 22:27 Urine Color Red (Yellow) A 10/22/23 23:07 Urine Appearance Cloudy (CLEAR) A 10/22/23 23:07 Urine pH 6.5 (5-7) 10/22/23 23:07 Ur Specific [place] 1.010 (1.005-1.030) 10/22/23 23:07 Urine Protein 2+ (Negative) H 10/22/23 23:07 Urine Glucose (UA) 1+ (Normal) H 10/22/23 23:07 Urine Ketones Negative (Negative) 10/22/23 23:07 Urine Blood 3+ (Negative) H 10/22/23 23:07 Urine Nitrate Negative (Negative) 10/22/23 23:07 Urine Bilirubin Neg (Negative) 10/22/23 23:07 Urine Urobilinogen Norm mg/dL (Negative) 10/22/23 23:07 Ur Leukocyte Esterase 2+ (Negative) H 10/22/23 23:07 Urine RBC Too numerous to cnt /hpf (0-2) H 10/22/23 23:07 Urine WBC Too numerous to cnt /hpf (0-5) H 10/22/23 23:07 Ur Squamous Epith Cells None /hpf (0-5) 10/22/23 23:07 Amorphous Sediment Not Reportable 10/22/23 23:07 Urine Bacteria Trace /hpf (NONE) 10/22/23 23:07 All radiology interpretation(s) finalized by discharge Discharge Plan Discharge Patient Disposition: Home Clinical Impression: Hyperkalemia, Pressure ulcer caused by device, Acute kidney injury superimposed on CKD Condition: Stable Prescriptions: New amoxicillin-pot clavulanate 875-125 mg tablet 1 tab PO Q12H Qty: 20 0RF No Action nitroglycerin 0.4 mg tablet, sublingual 0.4 mg SUBLINGUAL Q5M PRN (Reason: chest pain) Qty: 30 4RF Rx Instructions: until response; do not exceed 3 doses per episode aspirin 81 mg Tablet,Delayed Release (Dr/Ec) 81 mg PO DAILY Qty: 30 0RF tizanidine 4 mg tablet 2 mg PO QID PRN (Reason: Muscle Spasm) furosemide 40 mg tablet 40 mg PO DAILY PRN (Reason: Edema) atorvastatin 40 mg tablet 40 mg PO QPM acetaminophen 325 mg Tablet 650 mg PO QID PRN (Reason: Pain) tamsulosin 0.4 mg capsule 0.4 mg PO QPM lisinopril 10 mg tablet 10 mg PO DAILY Hold Instructions: Resume on 10/20/23. metoprolol succinate 25 mg tablet extended release 24 hr 25 mg PO DAILY amlodipine 5 mg Tablet 5 mg PO DAILY Qty: 30 0RF prednisone 10 mg tablet See Rx Instructions .ROUTE .COMPLEX Qty: 92 0RF Rx Instructions: 60 mg daily x 4D 50 mg daily x 4d 40 mg daily x 4d 30 mg daily x 3d 20 mg daily x 3d 10 mg daily x 3d 5 mg daily x 3d, then stopped carvedilol 12.5 mg tablet 12.5 mg PO BID hydralazine 25 mg tablet 25 mg PO TID triamcinolone acetonide 0.1 % cream 1 applic TOPICAL DAILY Discharge Orders: Discharge ED (Routine); Ordered 10/23/23 Ordered By: Abimael Tran Referrals: Raymon Min FNP [Primary Care Provider] - Patient Instructions: Hyperkalemia (ED), Catheter-associated Urinary Tract Infection (ED) Activity Restrictions/Additional Instructions: Please take all your medicine as directed. Please have your hospice nurse recheck your BMP within next 2 to 3 days to check your potassium and your BUN and creatinine. Coding Level of Care Code ED Hyperbaric [employer] Diver for Kathryn Olmstead
[2023-10-22 22:27] LABS: Basophils % 0.2 %; Eosinophils % 0.2 %; Hematocrit 37.1 % (37-53); Lymphocytes # 0.3 10^3/uL (0.8-4.8); Lymphocytes % 1.6 %; Mean Corpuscular HGB Conc 30.5 g/dL (30-55); Mean Corpuscular Hemoglobin 24.5 pg (27-33); Mean Corpuscular Volume 80.3 fl (82-101); Mean Platelet Volume 8.9 fL (7.4-10.4); Monocytes # 0.3 10^3/uL (0.2-0.9); Monocytes % 1.5 %; Neutrophils # 17.55 10^3/uL (1.8-7.7); Nucleated Red Blood Cells % 0 %; Platelet Count 356 10^3/cmm (157-399); Red Blood Count 4.62 10^6/uL (3.85-5.65); White Blood Count 18.29 10^3/uL (3.29-11.43)
[2023-10-22 22:44] LABS: Alanine Aminotransferase 17 U/L (0-41); Albumin Level 3.3 g/dL (3.5-5.2); Alkaline Phosphatase 155 U/L (40-130); Anion Gap 20.5 (5-19); Aspartate Amino Transferase 13 U/L (0-40); Blood Urea Nitrogen 63 mg/dL (8-23); Calcium 8.5 mg/dL (8.5-10.5); Carbon Dioxide 22 mmol/L (22-29); Chloride 96 mmol/L (98-107); Creatinine Clr Calc Pharmacy 25.8713; Globulin 4.5 g/dL (1.3-4.6); Glomerular Filtration Rate 20.9 mL/min (90-130); Glucose 284 mg/dL (65-115); Osmolality Calculated 302 mOsm/kg (285-295); Sodium 132 mmol/L (136-145); Total Bilirubin 0.3 mg/dL (0.15-1.2); Total Protein 7.8 g/dL (6.6-8.7)
[2023-10-22 22:45] VITALS: PULSE 91; O2SAT 100
[2023-10-22 22:49] LABS: Potassium 6.5 mmol/L (3.5-5.1)
--- NOTE | 2023-10-22 22:51 | ECG_ITS ---
[facility] Test Date: 2023-10-23 Pat Name: Armando Coleman Department: Room: Gender: Male Manager Developmental: : 1955 Requested By: Abimael Tran Order Number: [id number] Johanny MD: Debora Sevilla M.D. Measurements Intervals [place] Rate: 98 P: 43 NC: 215 QRS: 90 QRSD: 183 T: -28 QT: 401 QTc: 514 Interpretive Statements SINUS RHYTHM WITH FIRST DEGREE AV BLOCK WITH FREQUENT VENTRICULAR AND SUPRAVENTRICULAR PREMATURECOMPLEXES POSSIBLE LEFT ATRIAL ENLARGEMENT [-0.1mV P-WAVE IN V1/V2] RIGHT BUNDLE BRANCH BLOCK [120+ ms QRS DURATION, UPRIGHT V1, 40+ ms S IN I/aVL/V4/V5/V6] MODERATE T-WAVE ABNORMALITY, CONSIDER INFERIOR ISCHEMIA [-0.1+ mV T-WAVE IN II/aVF] Compared to ECG 10/10/2023 22:13:20 No significant changes Electronically Signed On 10-23-2023 22:21:17 CDT by Debora Sevilla M.D. [id number]
--- NOTE | 2023-10-22 23:12 | PC.NURSE ---
Patient's Barros catheter was replaced per request of patient and per order of Dr Tran. New Barros catheter placed without incident, patient tolerated well; catheter patent and draining at this time.
[2023-10-22] MEDS: silver sulfadiazine cream 1% 50 gm 1 APPLIC TOPICAL (23:33)
[2023-10-22] MEDS: sodium chloride 0.9% 1,000 ML 999 ML IV (23:46)
[2023-10-22] MEDS: calcium gluconate 0.1 gm/mL 10% SDV 10mL 1 GM IVP (23:46)
[2023-10-22 23:48] LABS: Protein Urine 2+ (Negative); Urine Appearance Cloudy (CLEAR); Urine Color Red (Yellow); pH Urine 6.5 (5-7)
[2023-10-22 23:49] LABS: Add Urine Microscopic? YES; Bacteria Urine TRACE /hpf; Bilirubin Urine Neg (Negative); Blood Urine 3+ (Negative); Glucose Urine UA 1+ (Normal); Ketones Urine Negative (Negative); Leukocyte Esterase Urine 2+ (Negative); Nitrate Urine Negative (Negative); RBC Urine TOO NUMEROUS TO CNT /hpf (0-2); Urobilinogen Urine Norm (Negative); WBC Urine TOO NUMEROUS TO CNT /hpf (0-5)
[2023-10-22] MEDS: insulin regular-human 100 units/1 mL 10 UNIT IVP (23:49)
[2023-10-22 23:50] LABS: Add Urine Culture? Yes
[2023-10-23] MEDS: amoxicillin-clav 875-125 mg Tablet 1 TAB PO (00:08)
[2023-10-23] MEDS: dextrose 10% 250 ML 1000 ML IV (00:08)
[2023-10-23 00:14] VITALS: PULSE 103; RESP 18; O2SAT 98
--- NOTE | 2023-10-23 00:19 | PC.NURSE ---
Wounds on bottom cleaned and medication applied. Soiled bedding changed. Wounds left open at this time.
[2023-10-23 00:52] VITALS: PULSE 100; O2SAT 97
[2023-10-23 01:38] VITALS: PULSE 93; O2SAT 96
[2023-10-23 02:52] LABS: Anion Gap 18.7 (5-19); Blood Urea Nitrogen 58 mg/dL (8-23); Carbon Dioxide 22 mmol/L (22-29); Chloride 101 mmol/L (98-107); Creatinine Clr Calc Pharmacy 28.7459; Glomerular Filtration Rate 23.5 mL/min (90-130); Glucose 219 mg/dL (65-115); Osmolality Calculated 305 mOsm/kg (285-295); Potassium 5.7 mmol/L (3.5-5.1); Sodium 136 mmol/L (136-145)
--- NOTE | 2023-10-23 04:11 | PC.NURSE ---
Patient up for discharge; all vitals removed per patient request. IV was removed.
--- NOTE | 2023-10-23 04:11 | PC.NURSE ---
2600cc sanguineous urine emptied from patient's Barros catheter.
--- NOTE | 2023-10-23 09:16 | PC.NURSE ---
PT WILL NOT LEAVE BP CUFF OR O2 MONITOR ON. NURSE EDUCATED PT ON VITAL SIGNS. PT REFUSED TO KEEP BP CUFF ON.
[2023-10-23 09:17] VITALS: RESP 18
[2023-10-23 13:22] VITALS: BP 148/94; PULSE 89; RESP 16; TEMP 36.7; O2SAT 98
== END 2023-10-23 13:23 | disposition home or self-care (01) ==
PROVIDERS: Emergency Provider Emergency Medicine; PCP Nurse Practitioner Family
DX: L89.329 Pressure ulcer of left buttock, unspecified stage (principal); E87.5 Hyperkalemia; I13.0 Hypertensive heart and chronic kidney disease with heart failure and stage 1 through stage 4 chronic kidney disease, or unspecified chronic kidney disease; N18.9 Chronic kidney disease, unspecified; I50.9 Heart failure, unspecified; I43 Cardiomyopathy in diseases classified elsewhere; G35 Multiple sclerosis; I25.10 Atherosclerotic heart disease of native coronary artery without angina pectoris; E78.5 Hyperlipidemia, unspecified; I25.2 Old myocardial infarction; F17.210 Nicotine dependence, cigarettes, uncomplicated; Z79.82 Long term (current) use of aspirin
CPT/HCPCS: 36415; 51702; 80048; 80053; 81001; 85025; 87086; 93005; 96361; 96374; 96375; 99284; J0612; J1815; J7030; J7799